=== PATIENT | female | born 1945 | race Caucasian/White ===

== ENCOUNTER → 2016-11-14 | Outpatient (CLI) | payer OTHER ==
[~2016-11-14] MED LIST: ACET325T96 PO; ACET650S10 PR; AMIT75TA2 PO; AMOX500C3 PO; AMOX875T PO; ASPI325T39 PO; BISA10SU38 PR; CALC-393 PO; CALC500C3 PO; CALCTAB5 PO; CHOL1000 PO; CHOL100010 PO; CLOTCRE33 TOP; CRFL PO; DEXT40GE PO; FERR325T PO; FSM70 PO; GLGKIT IM; IMT100 PO; LEVO750T23 PO; LIQUID PROTEIN PO; LORA-741 PO; MAGN400C3 PO; MAGN400T6 PO; MAGN400T7 PO; METH4PAK PO; METH500T3 PO; MIDO5TAB PO; MIRT45TA3 PO; MISCCAP80 PO; MOML PO; MULTTAB58 PO; NATA1INJ IV; NITR-5 PO; NRN800 PO; ONDA4TAB46 PO; POTA-74 PO; PRT/40 PO; SNTO30 TD; SODIENE PR; SULF800T23 PO; TPM25 PO; ULT/50 PO; ULT50 PO; VERA180C2 PO
[2016-11-14 08:28] LABS: MEAN CORPUSCULAR HEMOGLOBIN 29.4 pg (25-34); MEAN CORPUSCULAR HGB CONC 31.6 g/dl (32-36); MEAN PLATELET VOLUME 9.7 fL (7.4-10.4); PLATELET COUNT 563 K/uL (130-400); RED BLOOD COUNT 3.44 M/uL (4.2-5.4)
== END ==
LOC: C.LABCC 07:41
PROVIDERS: ATTEND Internal Medicine
DX: D50.0 Iron deficiency anemia secondary to blood loss (chronic) (principal)

== ENCOUNTER → 2016-12-16 | Outpatient (CLI) | payer OTHER ==
[2016-12-16 08:42] LABS: BASO % 0.2 %; BASO ABS # 0.02 K/uL (0-0.2); COMPLETE YES; HEMATOCRIT 36.5 % (37-47); IG% 0.3 %; LYMPH ABS # 1.74 K/uL (1.2-3.4); MEAN CELL VOLUME 93.6 fL (80-100); MEAN CORPUSCULAR HEMOGLOBIN 30.5 pg (25-34); MEAN CORPUSCULAR HGB CONC 32.6 g/dl (32-36); MEAN PLATELET VOLUME 10.8 fL (7.4-10.4); MONO % 6.8 %; NEUT % 71.7 %; PLATELET COUNT 238 K/uL (130-400); WHITE BLOOD COUNT 9.68 K/uL (4.8-10.8)
== END ==
LOC: C.LABCC 08:01
PROVIDERS: ATTEND Internal Medicine
DX: D64.9 Anemia, unspecified (principal); M81.0 Age-related osteoporosis without current pathological fracture

== ENCOUNTER → 2017-01-02 | Outpatient (CLI) | payer OTHER ==
[~2017-01-02] MED LIST changes: -ASPI325T39 PO
[2017-01-02 18:46] LABS: URINE APPEARANCE CLOUDY (CLEAR); URINE BILIRUBIN NEG (NEG); URINE COLOR DK YELLOW; URINE EPITHELIAL CELL AUTO 0-5 /lpf (0-5); URINE NITRITE NEG (NEG); URINE SPECIFIC GRAVITY 1.012 (1.000-1.030); UROBILINOGEN NEG (NEG)
[2017-01-02 18:48] LABS: MANUAL MICROSCOPIC REQUIRED? NO; REVIEW REQ? NO
== END ==
LOC: C.LABCC 18:03
PROVIDERS: ATTEND Internal Medicine
DX: R30.0 Dysuria (principal)

== ENCOUNTER → 2017-01-10 | Outpatient (CLI) | payer OTHER ==
[2017-01-13 20:21] LABS: JCV ANTIBODY POSITIVE; JCV INDEX 2.45
== END ==
LOC: C.LABCC 07:41
PROVIDERS: ATTEND Internal Medicine
DX: G35 Multiple sclerosis (principal)

== ENCOUNTER → 2017-01-31 | Outpatient (CLI) | payer OTHER ==
[2017-01-31 01:57] LABS: MANUAL MICROSCOPIC REQUIRED? NO; REVIEW REQ? YES; URINE APPEARANCE CLOUDY (CLEAR); URINE BILIRUBIN NEG (NEG); URINE COLOR DK YELLOW; URINE EPITHELIAL CELL AUTO 0-5 /lpf (0-5); URINE NITRITE POS (NEG); URINE PH 6.5 (4.5-7.5); URINE SPECIFIC GRAVITY 1.015 (1.000-1.030); UROBILINOGEN NEG (NEG)
== END ==
LOC: C.LABCC 12:50
PROVIDERS: ATTEND Internal Medicine
DX: R41.82 Altered mental status, unspecified (principal); R50.9 Fever, unspecified

== ENCOUNTER → 2017-02-01 | Outpatient (CLI) | payer OTHER ==
[2017-02-01 08:50] LABS: MEAN CELL VOLUME 92.1 fL (80-100); MEAN CORPUSCULAR HEMOGLOBIN 30.8 pg (25-34); MEAN CORPUSCULAR HGB CONC 33.4 g/dl (32-36); MEAN PLATELET VOLUME 11.5 fL (7.4-10.4); PLATELET COUNT 223 K/uL (130-400); RED BLOOD COUNT 4.45 M/uL (4.2-5.4); WHITE BLOOD COUNT 10.12 K/uL (4.8-10.8)
[2017-02-01 08:57] LABS: ALT/SGPT 17 U/L (12-78); AST/SGOT 11 U/L (15-37); BLOOD UREA NITROGEN 15 mg/dl (7-18); BUN/CREATININE RATIO 27.4 (10-20); CARBON DIOXIDE 33 mmol/L (21-32); CHLORIDE 102 mmol/L (98-107); CHOLESTEROL 129 mg/dl (0-200); CREATININE 0.53 mg/dl (0.60-1.20); GLUCOSE 79 mg/dl (70-99); MAGNESIUM 1.9 mg/dl (1.8-2.4); POTASSIUM 4.1 mmol/L (3.5-5.1); SODIUM 139 mmol/L (136-145); TRIGLYCERIDES 88 mg/dl (0-150); VERY LOW DENSITY LIPOPROT CALC 18 mg/dl
[2017-02-01 09:01] LABS: ALB/GLOB RATIO 0.7 (0.9-2); ALKALINE PHOSPHATASE 142 U/L (45-117); CHOLESTEROL/HDL RATIO 1.6; HDL CHOLESTEROL 80 mg/dl; LDL CHOLESTEROL CALCULATED 31 mg/dl
== END ==
LOC: C.LABCC 08:09
PROVIDERS: ATTEND Internal Medicine
DX: I10 Essential (primary) hypertension (principal); F41.9 Anxiety disorder, unspecified; G35 Multiple sclerosis; K21.9 Gastro-esophageal reflux disease without esophagitis

== ENCOUNTER 2017-03-05 18:45 | Emergency (ER) | payer OTHER ==
[~2017-03-05] VITALS: Ht 160 cm; Wt 43.0 kg
[~2017-03-05 18:45] MED LIST changes: -ACET325T96 PO; -ACET650S10 PR; -AMIT75TA2 PO; -AMOX500C3 PO; -AMOX875T PO; -BISA10SU38 PR; -CALC-393 PO; -CALC500C3 PO; -CHOL1000 PO; -CLOTCRE33 TOP; -CRFL PO; -DEXT40GE PO; -FERR325T PO; -FSM70 PO; -GLGKIT IM; -IMT100 PO; -LEVO750T23 PO; -LIQUID PROTEIN PO; -LORA-741 PO; -MAGN400C3 PO; -MAGN400T6 PO; -MAGN400T7 PO; -METH4PAK PO; -METH500T3 PO; -MIDO5TAB PO; -MIRT45TA3 PO; -MISCCAP80 PO; -MOML PO; -MULTTAB58 PO; -NATA1INJ IV; -NITR-5 PO; -NRN800 PO; -ONDA4TAB46 PO; -POTA-74 PO; -PRT/40 PO; -SNTO30 TD; -SODIENE PR; -SULF800T23 PO; -TPM25 PO; -ULT/50 PO; -VERA180C2 PO
[2017-03-05 18:47] VITALS: TEMP 36.9; Ht 160 cm; Wt 43.0 kg
[2017-03-05] MEDS ORDERED: PROCHLORPERAZINE 5 MG/ML 2 ML VIAL IM STA (19:01)
[2017-03-05] MEDS ORDERED: KETOROLAC TROMETHAMINE 60 MG/2 ML VIAL IM STA (19:01)
--- NOTE | 2017-03-05 19:11 | EMERGENCY ROOM VISIT NOTE ---
ED Visit Note First contact with patient: 18:50 CHIEF COMPLAINT: Migraine headache HISTORY OF PRESENT ILLNESS: This 70-year-old female patient presented to the emergency department this evening with a gradual onset of a severe generalized headache that started this morning. The patient states the migraine is similar to their typical migraines. There has been associated photophobia, phonophobia, nausea without vomiting. The patient denies fever or chills recently, and there is no weakness or numbness of the extremities. There is no difficulty with speech or vision. No trauma to the head and no neck pain. The pain is severe, constant, and it is slowly increasing in severity. The patient rates the pain as constant and 9/10. The patient has taken Imitrex without relief. This is not the worst headache of the life and is similar to previous migraines. Previous imaging studies of the brain have been normal. Patient was recently admitted to [facility] for hip fractures. She was recently discharged on . REVIEW OF SYSTEMS: A review of systems was performed with positives and pertinent negatives listed in the history of present illness. All other systems were reviewed and are negative. ALLERGIES: Morphine MEDICATIONS: Reviewed and discussed with the patient. PMH: No pertinent past medical history. SOCIAL HISTORY: Patient is a 70-year-old female who lives at home with family. PHYSICAL EXAM: VITAL SIGNS - Vital signs and nursing notes were reviewed. GENERAL - 70-year-old female appearing her stated age who is in no acute distress. Communicates well with provider and answers questions appropriately. HEAD - Normocephalic, Atraumatic. No Alonzo's Sign or Raccoon's Eyes. No depressed skull fractures palpable. EYES - PERRL with EOMI bilaterally. Sclera anicteric. Palpebral conjunctiva pink and moist with no injection noted. EARS - No deformities of external structures noted on gross examination bilaterally. No pain elicited with palpation of the tragus bilaterally. External auditory canals without discharge or otorrhea. Tympanic membranes pearly guerrero without retraction or bulging. No fluid or purulent material visualized behind the TM. Handle of malleus, umbo, cone of light, pars tensa/ flaccid all easily visualized. NOSE - Midline and without cyanosis. No epistaxis or purulent drainage noted. Septum midline without deviation or septal hematoma noted. MOUTH/OROPHARYNX - Without perioral cyanosis. Buccal mucosa pink and moist and without leukoplakia. Tongue midline with equal elevation of palate bilaterally. No tonsillar hypertrophy, erythema, or exudates noted. NECK - Neck with FROM. Supple to palpation. No lymphadenopathy noted. No nuchal rigidity. LUNGS - Chest wall symmetric without accessory muscle use, intercostals retractions, or central cyanosis. Normal vesicular breath sounds CTA B/L. No wheezes, rales, or rhonchi appreciated. CARDIAC - RRR with S1/S2. No murmur, rubs, or gallops appreciated. ABDOMEN - Abdominal contour flat without pulsations or visible masses. BS normoactive all four quadrants. No tenderness, palpable masses, hepatosplenomegaly, or ascites noted. EXTREMITIES - No pretibial edema present. +3/5 radial and dorsalis pedis pulses palpated throughout. FROM with no tremors, fasciculations, or clonus noted on PROM throughout. +5/5 strength noted in UE/LE bilaterally. NEUROLOGIC - Cranial nerves II through XII grossly intact. Sensory intact to light touch throughout. Patellar reflexes +2/4. Patient able to perform rapid alternating movements appropriately. Negative Drift. PSYCH - A&Ox3 and cooperates fully with examiner. Pt is very pleasant and interacts well with examiner. EMERGENCY DEPARTMENT COURSE: I examined the patient. The patient is on a narcotic injection per month treatment plan for their migraines. The patient was given 1 mg Dilaudid, 10 mg Compazine, and 60 mg Toradol intramuscularly per their usual protocol. The differential diagnosis includes acute intracranial bleed, meningitis, encephalitis, mass or mass effect, sinusitis, infection, tumor, headache, temporal arteritis and carbon monoxide exposure, and migraine. The patient was discharged home in stable condition with her driving. DIAGNOSIS: Migraine headache DISCHARGE INSTRUCTIONS & TREATMENT: You have been treated in the Emergency Department for a Headache. You have received pain medicine in the emergency department which impairs your ability to operate a vehicle. It is illegal for you to drive after receiving these medicines. For pain control, you can use the following [id number] medicines (if >12 yo): - Regular strength (325mg/tab) Tylenol (acetaminophen) 2 tabs every 4-6 hours as needed. Do not exceed 12 tablets in a 24 hour period. Avoid taking more than 4 grams (4000 mg) of Tylenol per day. This includes any other sources of acetaminophen you may take on a regular basis. - Regular strength (200 mg/tab) Advil (ibuprofen) 1-2 tabs every 4-6 hours as needed. Do not exceed a dose of 3200 mg per day. You should relax in a quiet, dark place for the rest of the day. Avoid any possible triggers including: cigarette smoke, caffeine, nicotine, chocolate, wine, beer, loud noises or music, or bright lights. You should schedule a follow-up appointment in 2-3 days with your Primary Care Provider or established Neurologist for further evaluation and treatment of your Headache. Return to the Emergency Department if your current symptoms worsen despite treatment course outlined above, or if you develop any of the following symptoms : intractable pain despite aforementioned treatment course, visual disturbances , loss of vision, unilateral weakness or facial drooping, slurring of speech, loss of coordination, or loss of consciousness. Problem List Medical Problems: (1) Benign hypertension Status: Chronic (2) Chronic peptic ulcer Status: Chronic (3) Hysterectomy Status: Resolved (4) Migraine Status: Chronic (5) Multiple sclerosis Status: Chronic (6) Multiple sclerosis Status: Chronic (7) Sepsis Status: Resolved (8) STAPHYLOCOCCAL SEPTICEMIA, NEC Status: Resolved Surgical Problems: (1) S/P partial gastrectomy Status: Chronic Current/Historical Medications Scheduled Alendronate Sodium (Alendronate Sodium), 70 MG PO WK Amitriptyline Hcl (Elavil), 75 MG PO HS Calcium Carbonate (Calcium), 600 MG PO TID Cholecalciferol (Vitamin D3), 1 TAB PO TID Ferrous Sulfate (Ferrous Sulfate), 325 MG PO BID Gabapentin (Gabapentin), 800 MG PO TID Magnesium Oxide (Mag-Ox), 400 MG PO QAM Midodrine Hcl (Midodrine Hcl), 5 MG PO TID Mirtazapine (Mirtazapine), 45 MG PO HS Natalizumab (Tysabri), 1 DOSE IV MONTHLY Pantoprazole (Pantoprazole Sodium), 40 MG PO BID Verapamil Hcl (Verapamil Hcl Er), 180 MG PO QPM Scheduled PRN Acetaminophen Tab (Tylenol), 650 MG PO Q4H PRN for Pain or Fever Sumatriptan Succinate (Imitrex), 100 MG PO UD PRN for Migraine Tramadol HCl (Tramadol HCl), 50 MG PO BID PRN for Pain Allergies Coded Allergies: Morphine (Verified Adverse Reaction, Intermediate, " MAKES ME MEAN" - CONFUSION, 10/27/16) Vital Signs Date Time Temp Pulse Resp B/P Pulse Ox O2 Delivery O2 Flow Rate FiO2 03/05/17 19:40 104 18 151/84 95 03/05/17 18:47 36.9 116 20 142/63 95 Room Air Medications Administered Medications (Trade) Dose Ordered Sig/Melvin Route Start Time Stop Time Status Last Admin Dose Admin Hydromorphone HCl (Dilaudid Inj) 1 mg NOW ONCE IM 03/05/17 19:15 03/05/17 19:16 DC 03/05/17 19:10 1 MG Ketorolac Tromethamine (Toradol Inj) 60 mg NOW STAT IM 03/05/17 19:01 03/05/17 19:03 DC 03/05/17 19:10 60 MG Prochlorperazine Edisylate (Compazine Inj) 10 mg NOW STAT IM 03/05/17 19:01 03/05/17 19:03 DC 03/05/17 19:09 10 MG Departure Information Impression Primary Impression: Migraine Dispostion Home / Self-Care Condition GOOD Referrals No Doctor, Assigned (PCP) Patient Instructions My [facility] Additional Instructions You have been treated in the Emergency Department for a Headache. You have received pain medicine in the emergency department which impairs your ability to operate a vehicle. It is illegal for you to drive after receiving these medicines. For pain control, you can use the following [id number] medicines (if >12 yo): - Regular strength (325mg/tab) Tylenol (acetaminophen) 2 tabs every 4-6 hours as needed. Do not exceed 12 tablets in a 24 hour period. Avoid taking more than 4 grams (4000 mg) of Tylenol per day. This includes any other sources of acetaminophen you may take on a regular basis. - Regular strength (200 mg/tab) Advil (ibuprofen) 1-2 tabs every 4-6 hours as needed. Do not exceed a dose of 3200 mg per day. You should relax in a quiet, dark place for the rest of the day. Avoid any possible triggers including: cigarette smoke, caffeine, nicotine, chocolate, wine, beer, loud noises or music, or bright lights. You should schedule a follow-up appointment in 2-3 days with your Primary Care Provider or established Neurologist for further evaluation and treatment of your Headache. Return to the Emergency Department if your current symptoms worsen despite treatment course outlined above, or if you develop any of the following symptoms : intractable pain despite aforementioned treatment course, visual disturbances , loss of vision, unilateral weakness or facial drooping, slurring of speech, loss of coordination, or loss of consciousness. Problem Qualifiers Primary Impression: Migraine Migraine type: unspecified Status migrainosus presence: without status migrainosus Intractability: not intractable Qualified Codes: G43.909 - Migraine, unspecified, not intractable, without status migrainosus
[2017-03-05] MEDS ORDERED: HYDROmorphone INJ 1 MG/ML SYR IM ONE (19:15)
--- NOTE | 2017-03-05 19:17 | EMERGENCY ROOM VISIT NOTE ---
ED Visit Note First contact with patient: 18:50 Patient was seen by our PA/METAL COATER. I was involved in the patient's care and did evaluate the patient myself. I was involved in the care throughout the ER stay. The patient presents with a headache that seems to be migrainous. She has a history of the same. She is being medicated and discharged home.
[2017-03-05 19:40] VITALS: BP 151/84; PULSE 104; O2SAT 95
[2017-04-27] MEDS ORDERED: METH4PAK PO (10:34)
[2017-05-01] MEDS ORDERED: AMOX500C3 PO (17:29)
[2017-05-12] MEDS ORDERED: LEVO750T23 PO (09:46)
[2017-06-02] MEDS ORDERED: MAGN400T6 PO (10:29)
[2017-07-22] MEDS ORDERED: METH500T3 PO (09:58)
[2017-07-22] MEDS ORDERED: PANT40TA2 PO (16:10)
[2017-07-22] MEDS ORDERED: NATA1INJ IV (16:15)
[2017-07-22] MEDS ORDERED: ULT/50 PO (16:39)
[2017-07-22] MEDS ORDERED: NRN800 PO (17:00)
[2017-07-22] MEDS ORDERED: AMIT75TA2 PO (17:00)
[2017-07-22] MEDS ORDERED: FERR1TAB62 PO (18:34)
[2017-08-25] MEDS ORDERED: PRED10TA PO (16:06)
[2017-08-25] MEDS ORDERED: LORA-741 PO (16:06)
[2017-08-25] MEDS ORDERED: ULT/50 PO (16:06)
== END 2017-03-05 19:41 | disposition home or self-care (01) ==
LOC: C.EDB 18:46 → C.EDD 19:41
DX: G43.909 Migraine, unspecified, not intractable, without status migrainosus (principal); I10 Essential (primary) hypertension; K27.9 Peptic ulcer, site unspecified, unspecified as acute or chronic, without hemorrhage or perforation; G35 Multiple sclerosis; Z79.899 Other long term (current) drug therapy; Z86.19 Personal history of other infectious and parasitic diseases

== ENCOUNTER 2017-03-22 20:53 | Emergency (ER) | payer OTHER ==
[~2017-03-22] VITALS: Ht 160 cm; Wt 43.0 kg
[~2017-03-22 20:53] MED LIST changes: -CALCTAB5 PO; -CHOL100010 PO
[2017-03-22 20:55] VITALS: Ht 160 cm; Wt 43.0 kg
[2017-03-22] MEDS ORDERED: KETOROLAC TROMETHAMINE 60 MG/2 ML VIAL IM STA (21:14)
[2017-03-22] MEDS ORDERED: HYDROmorphone INJ 1 MG/ML SYR IM STA (21:14)
[2017-03-22] MEDS ORDERED: PROCHLORPERAZINE 5 MG/ML 2 ML VIAL IM STA (21:14)
--- NOTE | 2017-03-22 21:19 | EMERGENCY ROOM VISIT NOTE ---
History First contact with patient: 21:08 Chief Complaint: HEADACHE Stated Complaint: BAD MIGRAINE History of Present Illness The patient is a 71 year old female, well-known to the emergency department who presents to the Emergency Room with complaints of a migraine headache. Her headache started this morning around 10 AM. She reports nausea without vomiting , photophobia and phonophobia. This is typical for her migraines, and not worse headache of her life. She is under the management of Dr. Gerardo. She usually takes Ultram, but this did not provide any relief. She rates her discomfort a 9 out of 10. She denies any recent head injury, fevers, chills, sinus congestion, neck pain, chest pain, shortness of breath or risk of carbon monoxide exposure. Review of Systems 10 system review was performed and was negative except for pertinent positives and negatives as indicated in history of present illness Past Medical/Surgical History Medical Problems: (1) Benign hypertension (2) Chronic peptic ulcer (3) Hysterectomy (4) Intertrochanteric fracture of right hip (5) Intertrochanteric fracture of right hip (6) Migraine (7) Multiple sclerosis (8) Multiple sclerosis (9) Multiple sclerosis exacerbation (10) non cardiac chest pain related to gi (11) Sepsis (12) STAPHYLOCOCCAL SEPTICEMIA, NEC (13) UTI (urinary tract infection) Surgical Problems: (1) S/P partial gastrectomy Family History Diabetes mellitus FH: cholecystectomy FHx: heart disease Social History Smoking Status: Former Smoker Alcohol Use: none Drug Use: none Marital Status: Housing Status: lives with family Occupation Status: retired Current/Historical Medications Scheduled Alendronate Sodium (Alendronate Sodium), 70 MG PO WK Amitriptyline Hcl (Elavil), 75 MG PO HS Calcium Carbonate (Calcium), 600 MG PO TID Cholecalciferol (Vitamin D3), 1 TAB PO TID Ferrous Sulfate (Ferrous Sulfate), 325 MG PO BID Gabapentin (Gabapentin), 800 MG PO TID Magnesium Oxide (Mag-Ox), 400 MG PO QAM Midodrine Hcl (Midodrine Hcl), 5 MG PO TID Mirtazapine (Mirtazapine), 45 MG PO HS Natalizumab (Tysabri), 1 DOSE IV MONTHLY Pantoprazole (Pantoprazole Sodium), 40 MG PO BID Verapamil Hcl (Verapamil Hcl Er), 180 MG PO QPM Scheduled PRN Acetaminophen Tab (Tylenol), 650 MG PO Q4H PRN for Pain or Fever Sumatriptan Succinate (Imitrex), 100 MG PO UD PRN for Migraine Tramadol HCl (Tramadol HCl), 50 MG PO BID PRN for Pain Allergies Coded Allergies: Morphine (Verified Adverse Reaction, Intermediate, " MAKES ME MEAN" - CONFUSION, 03/22/17) Physical Exam Vital Signs Date Time Temp Pulse Resp B/P Pulse Ox O2 Delivery O2 Flow Rate FiO2 03/22/17 20:55 36.6 98 16 147/86 93 Room Air Physical Exam CONSTITUTIONAL: Healthy and well nourished. Alert and oriented X 3 with positive affect. She is resting in a darkened room. And appears in moderate discomfort. HEENT: Normocephalic, atraumatic. Pupils equal, round and reactive. Patient is photophobic, precluding funduscopic exam. NECK: Full active range of motion without discomfort. No nuchal rigidity, JVD or carotid bruits. RESPIRATORY: Clear to auscultation bilaterally with no wheezing, crackles, rhonchi or stridor. CARDIOVASCULAR: Regular rate and rhythm with no murmurs, rubs or gallops. INTEGUMENTARY: No rash or other significant dermatologic conditions noted. NEUROLOGIC: Cranial nerves II-XII grossly intact. No focal neurologic deficits noted. Normal finger to nose test. Negative pronator drift. Medical Decision & Procedures ED Course Patient history and physical exam were performed. Nurse's notes were reviewed. Vital signs were reviewed and were normal. The patient is currently on a treatment plan. This is her first visit of the month. The patient was administered Dilaudid 2 mg, Compazine 10 mg and Toradol 30 mg IM. The patient requested immediate discharge. She was encouraged to rest and remain well- hydrated. Return for rebound migraine, otherwise follow-up with Dr. Gerardo for further management. The patient was happy with plan of care, voiced understanding of all discharge instructions, and rated her pain a 6 out of 10 at the time of discharge. Medical Decision Patient presents with complaint of a migraine headache that is typical for her migraines, and multiple worse headache of her life. Based on history and physical exam findings, I do not suspect CVA/TIA, abscess, intracranial bleed, meningitis or carbon monoxide poisoning. Impression Primary Impression: Migraine Departure Information Dispostion Home / Self-Care Referrals George Montoya M.D. (PCP) Forms HOME CARE DOCUMENTATION FORM, IMPORTANT VISIT INFORMATION Patient Instructions My [facility] Additional Instructions Rest and remain well-hydrated. Follow-up with Dr. Gerardo as needed for further migraine management. Return to the emergency department for any progressively worsening symptoms.
[2017-03-22 21:51] VITALS: BP 147/86; PULSE 98; TEMP 36.6; O2SAT 93
[2017-04-27] MEDS ORDERED: METH4PAK PO (10:34)
[2017-05-01] MEDS ORDERED: AMOX500C3 PO (17:29)
[2017-05-12] MEDS ORDERED: LEVO750T23 PO (09:46)
[2017-06-02] MEDS ORDERED: MAGN400T6 PO (10:29)
[2017-07-22] MEDS ORDERED: METH500T3 PO (09:58)
[2017-07-22] MEDS ORDERED: PANT40TA2 PO (16:10)
[2017-07-22] MEDS ORDERED: NATA1INJ IV (16:15)
[2017-07-22] MEDS ORDERED: ULT/50 PO (16:39)
[2017-07-22] MEDS ORDERED: NRN800 PO (17:00)
[2017-07-22] MEDS ORDERED: AMIT75TA2 PO (17:00)
[2017-07-22] MEDS ORDERED: FERR1TAB62 PO (18:34)
[2017-08-25] MEDS ORDERED: PRED10TA PO (16:06)
[2017-08-25] MEDS ORDERED: LORA-741 PO (16:06)
[2017-08-25] MEDS ORDERED: ULT/50 PO (16:06)
== END 2017-03-22 21:52 | disposition home or self-care (01) ==
LOC: C.EDB 20:54
DX: G43.909 Migraine, unspecified, not intractable, without status migrainosus (principal); I10 Essential (primary) hypertension; G35 Multiple sclerosis; Z87.11 Personal history of peptic ulcer disease; Z87.19 Personal history of other diseases of the digestive system; Z87.440 Personal history of urinary (tract) infections; Z87.81 Personal history of (healed) traumatic fracture; Z90.710 Acquired absence of both cervix and uterus; Z90.3 Acquired absence of stomach [part of]; Z87.891 Personal history of nicotine dependence; Z79.899 Other long term (current) drug therapy; Z88.5 Allergy status to narcotic agent; Z83.3 Family history of diabetes mellitus; Z82.49 Family history of ischemic heart disease and other diseases of the circulatory system; Z84.1 Family history of disorders of kidney and ureter

== ENCOUNTER 2017-04-06 16:51 | Emergency (ER) | payer OTHER ==
[~2017-04-06] VITALS: Ht 160 cm; Wt 43.5 kg
[2017-04-06 16:58] VITALS: BP 110/68; PULSE 126; TEMP 36.8; O2SAT 95; Ht 160 cm; Wt 43.5 kg
[2017-04-06] MEDS ORDERED: HYDROmorphone INJ 2 MG/ML SYR/VIAL IM STA (17:17)
[2017-04-06] MEDS ORDERED: KETOROLAC TROMETHAMINE 60 MG/2 ML VIAL IM STA (17:17)
[2017-04-06] MEDS ORDERED: PROCHLORPERAZINE 5 MG/ML 2 ML VIAL IM STA (17:17)
--- NOTE | 2017-04-06 17:20 | EMERGENCY ROOM VISIT NOTE ---
ED Visit Note First contact with patient: 17:00 Staff note: I have reviewed the Patients chart and have discussed this case with my PA. I generally agree with the ED note and findings.
--- NOTE | 2017-04-06 17:29 | EMERGENCY ROOM VISIT NOTE ---
ED Visit Note First contact with patient: 17:00 CHIEF COMPLAINT: Migraine headache HISTORY OF PRESENT ILLNESS: This 71-year-old female patient presented to the emergency department ambulatory with a gradual onset of a severe generalized headache that started yesterday. The patient states the migraine is similar to their typical migraines. There has been associated photophobia, phonophobia, nausea, but no vomiting. The patient denies fever or chills recently, and there is no weakness or numbness of the extremities. There is no difficulty with speech or vision. No trauma to the head and no neck pain. The pain is severe, constant, and it is slowly increasing in severity. The patient rates the pain as throbbing and 8/10. The patient has taken Imitrex and Excedrin without relief. This is not the worst headache of the life and is similar to previous migraines. Previous imaging studies of the brain have been normal. The patient follows with Dr. Gerardo locally for her migraine headaches. REVIEW OF SYSTEMS: A review of systems was performed with positives and pertinent negatives listed in the history of present illness. All other systems were reviewed and are negative. ALLERGIES: Morphine MEDICATIONS: See med list PMH: Migraine headaches SOCIAL HISTORY: The patient lives locally with her family. She is a former smoker. PHYSICAL EXAM: Vital Signs: Reviewed Nurse's notes, vital signs stable. GENERAL : This is a 71-year-old female, who appears in pain, but non toxic in appearance and in no acute distress. MENTAL STATUS: Alert, oriented, and coherent. HEENT: Normocephalic. PERRLA. EOMI. Nares patent without nuchal rigidity. Tympanic membranes pearly guerrero without erythema or effusion bilaterally. Mucous membranes moist. NECK: Supple, no nuchal rigidity, nontender, no lymphadenopathy. HEART: Regular rhythm and normal rate without murmurs, ectopy, gallops, or rubs. LUNGS: Clear to auscultation bilaterally without wheezes, rales or rhonchi. No dullness to percussion. No accessory muscle use. No retractions. SKIN: Normal. NEUROLOGICAL: Pupils are round, equal and react to light. The optic fundi are normal and the discs are flat. The patient moves all extremities well and the gait is normal. EMERGENCY DEPARTMENT COURSE: I examined the patient. The patient is on a 2 narcotic injection per month treatment plan for their migraines. The patient was given 2 mg Dilaudid IM, 10 mg Compazine IM and 60 mg Toradol IM per their usual protocol. The differential diagnosis includes acute intracranial bleed, meningitis, encephalitis, mass or mass effect, sinusitis, infection, tumor, headache, temporal arteritis and carbon monoxide exposure, and migraine. The patient was discharged home in stable condition with her driving. The patient was independently evaluated by Dr. Leigh, ED attending physician, who agreed with my assessment and treatment plan. DIAGNOSIS: Migraine headache Problem List Medical Problems: (1) Benign hypertension Status: Chronic (2) Chronic peptic ulcer Status: Chronic (3) Hysterectomy Status: Resolved (4) Migraine Status: Chronic (5) Multiple sclerosis Status: Chronic (6) Multiple sclerosis Status: Chronic (7) Sepsis Status: Resolved (8) STAPHYLOCOCCAL SEPTICEMIA, NEC Status: Resolved Surgical Problems: (1) S/P partial gastrectomy Status: Chronic Current/Historical Medications Scheduled Alendronate Sodium (Alendronate Sodium), 70 MG PO WK Amitriptyline Hcl (Elavil), 75 MG PO HS Calcium Carbonate (Calcium), 600 MG PO TID Cholecalciferol (Vitamin D3), 1 TAB PO TID Ferrous Sulfate (Ferrous Sulfate), 325 MG PO BID Gabapentin (Gabapentin), 800 MG PO TID Magnesium Oxide (Mag-Ox), 400 MG PO QAM Midodrine Hcl (Midodrine Hcl), 5 MG PO TID Mirtazapine (Mirtazapine), 45 MG PO HS Natalizumab (Tysabri), 1 DOSE IV MONTHLY Pantoprazole (Pantoprazole Sodium), 40 MG PO BID Verapamil Hcl (Verapamil Hcl Er), 180 MG PO QPM Scheduled PRN Acetaminophen Tab (Tylenol), 650 MG PO Q4H PRN for Pain or Fever Sumatriptan Succinate (Imitrex), 100 MG PO UD PRN for Migraine Tramadol HCl (Tramadol HCl), 50 MG PO BID PRN for Pain Allergies Coded Allergies: Morphine (Verified Adverse Reaction, Intermediate, " MAKES ME MEAN" - CONFUSION, 04/06/17) Vital Signs Date Time Temp Pulse Resp B/P Pulse Ox O2 Delivery O2 Flow Rate FiO2 04/06/17 16:58 36.8 126 18 110/68 95 Room Air Departure Information Impression Primary Impression: Migraine Dispostion Home / Self-Care Condition GOOD Referrals George Montoya M.D. (PCP) Patient Instructions My [facility] Additional Instructions You have been treated in the Emergency Department for a Headache. You have received pain medicine in the emergency department which impairs your ability to operate a vehicle. It is illegal for you to drive after receiving these medicines. You should schedule a follow-up appointment in 2-3 days with your Primary Care Provider or established Neurologist for further evaluation and treatment of your Headache. Return to the Emergency Department if your current symptoms worsen despite treatment course outlined above, or if you develop any of the following symptoms : intractable pain despite aforementioned treatment course, visual disturbances , loss of vision, unilateral weakness or facial drooping, slurring of speech, loss of coordination, or loss of consciousness. Problem Qualifiers Primary Impression: Migraine Migraine type: unspecified Status migrainosus presence: without status migrainosus Intractability: not intractable Qualified Codes: G43.909 - Migraine, unspecified, not intractable, without status migrainosus
[2017-04-27] MEDS ORDERED: METH4PAK PO (10:34)
[2017-05-01] MEDS ORDERED: AMOX500C3 PO (17:29)
[2017-05-12] MEDS ORDERED: LEVO750T23 PO (09:46)
[2017-06-02] MEDS ORDERED: MAGN400T6 PO (10:29)
[2017-07-22] MEDS ORDERED: METH500T3 PO (09:58)
[2017-07-22] MEDS ORDERED: PANT40TA2 PO (16:10)
[2017-07-22] MEDS ORDERED: NATA1INJ IV (16:15)
[2017-07-22] MEDS ORDERED: ULT/50 PO (16:39)
[2017-07-22] MEDS ORDERED: AMIT75TA2 PO (17:00)
[2017-07-22] MEDS ORDERED: NRN800 PO (17:00)
[2017-07-22] MEDS ORDERED: FERR1TAB62 PO (18:34)
[2017-08-25] MEDS ORDERED: ULT/50 PO (16:06)
[2017-08-25] MEDS ORDERED: LORA-741 PO (16:06)
[2017-08-25] MEDS ORDERED: PRED10TA PO (16:06)
== END 2017-04-06 17:40 | disposition home or self-care (01) ==
LOC: C.EDB 16:52 → C.EDD 17:40
DX: G43.909 Migraine, unspecified, not intractable, without status migrainosus (principal); Z87.891 Personal history of nicotine dependence; I10 Essential (primary) hypertension; G35 Multiple sclerosis

== ENCOUNTER → 2017-04-11 | Outpatient (CLI) | payer OTHER ==
[~2017-04-11] MED LIST changes: +ACET325T96 PO; +ACET650S10 PR; +AMIT75TA2 PO; +AMOX500C3 PO; +AMOX875T PO; +BISA10SU38 PR; +CALC-393 PO; +CALC500C3 PO; +CHOL1000 PO; +CLOTCRE33 TOP; +CRFL PO; +DEXT40GE PO; +FERR1TAB62 PO; +FSM70 PO; +GLGKIT IM; +IMT100 PO; +LEVO750T23 PO; +LIQUID PROTEIN PO; +LORA-741 PO; +MAGN400C3 PO; +MAGN400T6 PO; +MAGN400T7 PO; +METH4PAK PO; +METH500T3 PO; +MIDO5TAB PO; +MIRT45TA3 PO; +MISCCAP80 PO; +MOML PO; +MULTTAB58 PO; +NATA1INJ IV; +NITR-5 PO; +NRN800 PO; +ONDA4TAB46 PO; +PANT40TA2 PO; +POTA-74 PO; +PRED10TA PO; +SNTO30 TD; +SODIENE PR; +SULF800T23 PO; +TPM25 PO; +ULT/50 PO; +VERA180C2 PO
[2017-04-11 12:27] LABS: BASO % 0.5 %; BASO ABS # 0.05 K/uL (0-0.2); COMPLETE YES; EOS % 3.8 %; HEMATOCRIT 41.4 % (37-47); IG% 0.2 %; LYMPH % 41.7 %; LYMPH ABS # 4.53 K/uL (1.2-3.4); MEAN CELL VOLUME 93.5 fL (80-100); MEAN CORPUSCULAR HEMOGLOBIN 31.4 pg (25-34); MEAN CORPUSCULAR HGB CONC 33.6 g/dl (32-36); MEAN PLATELET VOLUME 10.1 fL (7.4-10.4); MONO % 6.6 %; NEUT % 47.2 %; PLATELET COUNT 273 K/uL (130-400); RED BLOOD COUNT 4.43 M/uL (4.2-5.4); WHITE BLOOD COUNT 10.87 K/uL (4.8-10.8)
[2017-04-11 12:36] LABS: ALT/SGPT 26 U/L (12-78); AST/SGOT 29 U/L (15-37); BLOOD UREA NITROGEN 16 mg/dl (7-18); BUN/CREATININE RATIO 32.4 (10-20); CALCIUM 8.8 mg/dl (8.5-10.1); CARBON DIOXIDE 33 mmol/L (21-32); CHLORIDE 106 mmol/L (98-107); CREATININE 0.48 mg/dl (0.60-1.20); GLUCOSE 76 mg/dl (70-99); POTASSIUM 3.9 mmol/L (3.5-5.1); SODIUM 142 mmol/L (136-145)
[2017-04-11 12:39] LABS: ALKALINE PHOSPHATASE 111 U/L (45-117)
== END | disposition home or self-care (01) ==
LOC: C.LABBFT 10:59
PROVIDERS: ATTEND Psychiatry & Neurology Neurology
DX: E53.8 Deficiency of other specified B group vitamins (principal); G35 Multiple sclerosis; E55.9 Vitamin D deficiency, unspecified

== ENCOUNTER 2017-04-21 16:00 | Emergency (ER) | payer OTHER ==
[~2017-04-21] VITALS: Ht 160 cm; Wt 44.0 kg
[~2017-04-21 16:00] MED LIST changes: -ACET325T96 PO; -ACET650S10 PR; -AMIT75TA2 PO; -AMOX500C3 PO; -AMOX875T PO; -BISA10SU38 PR; -CALC-393 PO; -CALC500C3 PO; -CHOL1000 PO; -CLOTCRE33 TOP; -CRFL PO; -DEXT40GE PO; -FERR1TAB62 PO; -FSM70 PO; -GLGKIT IM; -IMT100 PO; -LEVO750T23 PO; -LIQUID PROTEIN PO; -LORA-741 PO; -MAGN400C3 PO; -MAGN400T6 PO; -MAGN400T7 PO; -METH4PAK PO; -METH500T3 PO; -MIDO5TAB PO; -MIRT45TA3 PO; -MISCCAP80 PO; -MOML PO; -MULTTAB58 PO; -NATA1INJ IV; -NITR-5 PO; -NRN800 PO; -ONDA4TAB46 PO; -PANT40TA2 PO; -POTA-74 PO; -PRED10TA PO; -SNTO30 TD; -SODIENE PR; -SULF800T23 PO; -TPM25 PO; -ULT/50 PO; -VERA180C2 PO
[2017-04-21 16:03] VITALS: TEMP 36.6; Ht 160 cm; Wt 44.0 kg
[2017-04-21] MEDS ORDERED: PROCHLORPERAZINE 5 MG/ML 2 ML VIAL IM STA (16:26)
[2017-04-21] MEDS ORDERED: KETOROLAC TROMETHAMINE 60 MG/2 ML VIAL IM STA (16:26)
[2017-04-21] MEDS ORDERED: HYDROmorphone INJ 2 MG/ML SYR/VIAL IM STA (16:26)
--- NOTE | 2017-04-21 16:27 | EMERGENCY ROOM VISIT NOTE ---
History Report prepared by Fidencio: Manfred Farley Under the Supervision of: Dr. Art Astorga D.O. First contact with patient: 16:20 Chief Complaint: HEADACHE Stated Complaint: HEADACHE History of Present Illness The patient is a 71 year old female who presents to the Emergency Room with complaints of a constant headache that began this morning at 1000, 6.5 hours prior to arrival. The patient states that she has a history of migraine headaches and that this headache is similar to those she has had in the past. She denies any atypical symptoms such as fevers, weakness, or tingling. She does follow with her primary care physician for migraines. 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 A total of 10 systems reviewed and were otherwise negative. Past Medical & Surgical Medical Problems: (1) Benign hypertension (2) Chronic peptic ulcer (3) Hysterectomy (4) Intertrochanteric fracture of right hip (5) Intertrochanteric fracture of right hip (6) Migraine (7) Multiple sclerosis (8) Multiple sclerosis (9) Multiple sclerosis exacerbation (10) non cardiac chest pain related to gi (11) Sepsis (12) STAPHYLOCOCCAL SEPTICEMIA, NEC (13) UTI (urinary tract infection) Surgical Problems: (1) S/P partial gastrectomy Family History Diabetes mellitus FH: cholecystectomy FHx: heart disease Social History Smoking Status: Never Smoker Alcohol Use: none Drug Use: none Marital Status: Housing Status: lives with family Occupation Status: retired Current/Historical Medications Scheduled Alendronate Sodium (Alendronate Sodium), 70 MG PO WK Amitriptyline Hcl (Elavil), 75 MG PO HS Calcium Carbonate (Calcium), 600 MG PO TID Cholecalciferol (Vitamin D3), 1,000 INTER.UNIT PO TID Ferrous Sulfate (Ferrous Sulfate), 325 MG PO BID Gabapentin (Gabapentin), 800 MG PO TID Magnesium Oxide (Mag-Ox), 400 MG PO QAM Midodrine Hcl (Midodrine Hcl), 5 MG PO TID Mirtazapine (Mirtazapine), 45 MG PO HS Natalizumab (Tysabri), 1 DOSE IV MONTHLY Pantoprazole (Pantoprazole Sodium), 40 MG PO BID Verapamil Hcl (Verapamil Hcl Er), 180 MG PO QPM Scheduled PRN Acetaminophen Tab (Tylenol), 650 MG PO Q4H PRN for Pain or Fever Sumatriptan Succinate (Imitrex), 100 MG PO UD PRN for Migraine Tramadol Hcl (Ultram), 50 MG PO BID PRN for Pain Allergies Coded Allergies: Morphine (Verified Adverse Reaction, Intermediate, " MAKES ME MEAN" - CONFUSION, 04/06/17) Physical Exam Vital Signs Date Time Temp Pulse Resp B/P (MAP) Pulse Ox O2 Delivery O2 Flow Rate FiO2 04/21/17 16:59 77 135/74 95 04/21/17 16:32 139/90 04/21/17 16:30 79 17 96 04/21/17 16:13 89 04/21/17 16:09 156/85 04/21/17 16:03 36.6 97 18 117/72 94 Room Air Physical Exam GENERAL: Patient is awake, alert, and somewhat anxious and uncomfortable appearing. EYES: The conjunctivae are clear. The pupils are round and reactive. EARS, NOSE, MOUTH AND THROAT: The nose is without any evidence of any deformity. Mucous membranes are moist tongue is midline NECK: The neck is nontender and supple. RESPIRATORY: Normal respiratory effort is noted there is no evidence of wheezing rhonchi or rales CARDIOVASCULAR: Regular rate and rhythm noted there no murmurs rubs or gallops normal S1 normal S2 GASTROINTESTINAL: The abdomen is soft. Bowel sounds are present in all quadrants. Abdomen is nontender MUSCULOSKELETAL/EXTREMITIES: There is no evidence of gross deformity full range of motion is noted in the hips and shoulders SKIN: There is no obvious evidence of any rash. There are no petechiae, pallor or cyanosis noted. NEUROLOGIC: Patient is awake alert and oriented x3 strength is symmetric patellar reflexes are 2+ bilaterally Medical Decision & Procedures Medications Administered Medications (Trade) Dose Ordered Sig/Melvin Route Start Time Stop Time Status Last Admin Dose Admin Hydromorphone HCl (Dilaudid Inj) 2 mg NOW STAT IM 04/21/17 16:26 04/21/17 16:28 DC 04/21/17 16:37 2 MG Prochlorperazine Edisylate (Compazine Inj) 10 mg NOW STAT IM 04/21/17 16:26 04/21/17 16:28 DC 04/21/17 16:38 10 MG Ketorolac Tromethamine (Toradol Inj) 60 mg NOW STAT IM 04/21/17 16:26 04/21/17 16:28 DC 04/21/17 16:35 60 MG ED Course 162: The patient was evaluated in room B11. A complete history and physical examination were performed. 162: Ordered Toradol 60 mg IM, Compazine 10 mg IM, Dilaudid 2 mg IM. 1701: Upon reevaluation, the patient is resting in bed. I discussed the results and treatment plan with her. She verbalized agreement of the treatment plan. The patient was discharged home. Medical Decision Differential diagnosis: Etiologies such as migraine headache, meningitis, sinusitis, CO exposure, ICH, SAH, infection, tumor, headache, sinus thrombosis, arterial dissection, as well as others were entertained. Nursing notes reviewed. The patient is a 71-year-old female who presented to the emergency department for an evaluation of headache. The patient has a long history of chronic headaches. She has had similar episodes in the past. I reviewed the patient's previous electronic medical records. She was given medications that she is received in the past and had good resolution of her symptoms. She was encouraged to rest and avoid any strenuous activity. She was encouraged to consider following up with her primary headache specialist as soon as possible. She was also encouraged to return to the emergency department immediately if symptoms change worsen or the need arises. Impression Primary Impression: Migraine Additional Impression: Headache Scribe Attestation The scribe's documentation has been prepared under my direction and personally reviewed by me in its entirety. I confirm that the note above accurately reflects all work, treatment, procedures, and medical decision making performed by me. Departure Information Dispostion Home / Self-Care Referrals George Montoya M.D. (PCP) Forms HOME CARE DOCUMENTATION FORM, IMPORTANT VISIT INFORMATION Patient Instructions My [facility] Additional Instructions Continue all medications as prescribed. Rest and avoid any strenuous activity. Return to the emergency department immediately if symptoms change worsen or the need arises. Problem Qualifiers Primary Impression: Migraine Migraine type: unspecified Status migrainosus presence: without status migrainosus Intractability: not intractable Qualified Codes: G43.909 - Migraine, unspecified, not intractable, without status migrainosus Additional Impression: Headache Headache type: unspecified Headache chronicity pattern: unspecified pattern Intractability: not intractable Qualified Codes: R51 - Headache
[2017-04-21 16:59] VITALS: BP 135/74; PULSE 77; O2SAT 95
[2017-04-21] MEDS ORDERED: CALC-393 PO (19:00)
[2017-04-21] MEDS ORDERED: VERA180C2 PO (22:11)
[2017-04-22] MEDS ORDERED: SULF800T23 PO (20:16)
[2017-04-27] MEDS ORDERED: METH4PAK PO (10:34)
[2017-05-01] MEDS ORDERED: AMOX500C3 PO (17:29)
[2017-05-12] MEDS ORDERED: LEVO750T23 PO (09:46)
[2017-06-02] MEDS ORDERED: MAGN400T6 PO (10:29)
[2017-07-22] MEDS ORDERED: METH500T3 PO (09:58)
[2017-07-22] MEDS ORDERED: PANT40TA2 PO (16:10)
[2017-07-22] MEDS ORDERED: NATA1INJ IV (16:15)
[2017-07-22] MEDS ORDERED: ULT/50 PO (16:39)
[2017-07-22] MEDS ORDERED: AMIT75TA2 PO (17:00)
[2017-07-22] MEDS ORDERED: NRN800 PO (17:00)
[2017-07-22] MEDS ORDERED: FERR1TAB62 PO (18:34)
[2017-08-25] MEDS ORDERED: ULT/50 PO (16:06)
[2017-08-25] MEDS ORDERED: PRED10TA PO (16:06)
[2017-08-25] MEDS ORDERED: LORA-741 PO (16:06)
== END 2017-04-21 17:01 | disposition home or self-care (01) ==
LOC: C.EDB 16:01
DX: G43.909 Migraine, unspecified, not intractable, without status migrainosus (principal); I10 Essential (primary) hypertension; K27.7 Chronic peptic ulcer, site unspecified, without hemorrhage or perforation; G35 Multiple sclerosis; Z87.440 Personal history of urinary (tract) infections; Z83.3 Family history of diabetes mellitus; Z82.49 Family history of ischemic heart disease and other diseases of the circulatory system; Z79.899 Other long term (current) drug therapy

== ENCOUNTER 2017-04-22 18:41 | Emergency (ER) | payer OTHER ==
[~2017-04-22] VITALS: Ht 160 cm; Wt 43.0 kg
[~2017-04-22 18:41] MED LIST changes: +CALC-393 PO; -ULT50 PO; +VERA180C2 PO
[2017-04-22 18:47] VITALS: TEMP 37.1; Ht 160 cm; Wt 43.0 kg
[2017-04-22] MEDS ORDERED: SULFAMETHOXAZOLE/TRIMETHOPRIM DS 800/160MG TAB PO ONE (19:15)
--- NOTE | 2017-04-22 19:17 | EMERGENCY ROOM VISIT NOTE ---
History Report prepared by Fidencio: Agustina Plascencia Under the Supervision of: Dr. Art Astorga D.O. First contact with patient: 18:53 Chief Complaint: URINARY SYMPTOMS Stated Complaint: UTI Nursing Triage Summary: pt c/o urgency and burning with urination, pt also having sme confusion which is normal when she gets a UTI per History of Present Illness The patient is a 71 year old female who presents to the Emergency Room with complaints of persistent urinary symptoms. She is accompanied by her . She reports she started experiencing dysuria and increased urinary frequency last night. She rates her overall discomfort from the dysuria as a 10/10 in severity. She denies her urine looking cloudy or blood tinged. The patient states she has a history of chronic UTI's. Her last UTI was approximately 1 month ago and she was treated with Bactrim. She also complains of feeling more confused than normal and her reports this confusion is typical for her normal UTI symptoms. She denies any recent fevers, cough or cold symptoms, nausea, vomiting or diarrhea. Source of History: patient, spouse/significant other () Onset: last night Position: other (urinary system) Symptom Intensity: Timing: other (persistent) Associated Symptoms: No fevers, No cough (cough or cold symptoms), No nausea , No vomiting, No diarrhea Review of Systems See HPI for pertinent positives & negatives. A total of 10 systems reviewed and were otherwise negative. Past Medical & Surgical Medical Problems: (1) Benign hypertension (2) Chronic peptic ulcer (3) Hysterectomy (4) Intertrochanteric fracture of right hip (5) Intertrochanteric fracture of right hip (6) Migraine (7) Multiple sclerosis (8) Multiple sclerosis (9) Multiple sclerosis exacerbation (10) non cardiac chest pain related to gi (11) Sepsis (12) STAPHYLOCOCCAL SEPTICEMIA, NEC (13) UTI (urinary tract infection) Surgical Problems: (1) S/P partial gastrectomy Family History Diabetes mellitus FH: cholecystectomy FHx: heart disease Social History Smoking Status: Former Smoker Alcohol Use: none Drug Use: none Marital Status: Housing Status: lives with family Occupation Status: retired Current/Historical Medications Scheduled Alendronate Sodium (Alendronate Sodium), 70 MG PO WK Amitriptyline Hcl (Elavil), 75 MG PO HS Calcium Carbonate (Calcium), 600 MG PO TID Cholecalciferol (Vitamin D3), 1,000 INTER.UNIT PO TID Ferrous Sulfate (Ferrous Sulfate), 325 MG PO BID Gabapentin (Gabapentin), 800 MG PO TID Magnesium Oxide (Mag-Ox), 400 MG PO QAM Midodrine Hcl (Midodrine Hcl), 5 MG PO TID Mirtazapine (Mirtazapine), 45 MG PO HS Natalizumab (Tysabri), 1 DOSE IV MONTHLY Pantoprazole (Pantoprazole Sodium), 40 MG PO BID Sulfa/Trimethoprim (Bactrim Ds 800MG/160MG), 1 TAB PO BID Verapamil Hcl (Verapamil Hcl Er), 180 MG PO QPM Scheduled PRN Acetaminophen Tab (Tylenol), 650 MG PO Q4H PRN for Pain or Fever Sumatriptan Succinate (Imitrex), 100 MG PO UD PRN for Migraine Tramadol Hcl (Ultram), 50 MG PO BID PRN for Pain Allergies Coded Allergies: Morphine (Verified Adverse Reaction, Intermediate, " MAKES ME MEAN" - CONFUSION, 04/06/17) Physical Exam Vital Signs Date Time Temp Pulse Resp B/P (MAP) Pulse Ox O2 Delivery O2 Flow Rate FiO2 04/22/17 20:53 101 16 138/66 93 04/22/17 18:47 37.1 106 16 145/69 93 Room Air Physical Exam GENERAL: Patient is awake, alert, in no acute distress, patient is resting comfortably and showing no signs of anxiety EYES: The conjunctivae are clear. The pupils are round and reactive. EARS, NOSE, MOUTH AND THROAT: The nose is without any evidence of any deformity. Mucous membranes are moist tongue is midline NECK: The neck is nontender and supple. RESPIRATORY: Normal respiratory effort is noted there is no evidence of wheezing rhonchi or rales CARDIOVASCULAR: Regular rate and rhythm noted there no murmurs rubs or gallops normal S1 normal S2 GASTROINTESTINAL: The abdomen is soft. Bowel sounds are present in all quadrants. Abdomen is nontender MUSCULOSKELETAL/EXTREMITIES: There is no evidence of gross deformity full range of motion is noted in the hips and shoulders SKIN: There is no obvious evidence of any rash. There are no petechiae, pallor or cyanosis noted. NEUROLOGIC: Patient is awake alert and oriented x3 strength is symmetric patellar reflexes are 2+ bilaterally Medical Decision & Procedures Laboratory Results Test 04/22/17 00:00 Urine Color DK YELLOW Urine Appearance TURBID (CLEAR) Urine pH 6.5 (4.5-7.5) Urine Specific Kaufman 1.021 (1.000-1.030) Urine Protein TRACE (NEG) Urine Glucose (UA) NEG (NEG) Urine Ketones NEG (NEG) Urine Occult Blood 1+ (NEG) Urine Nitrite NEG (NEG) Urine Bilirubin NEG (NEG) Urine Urobilinogen NEG (NEG) Urine Leukocyte Esterase LARGE (NEG) Urine WBC (Auto) >30 /hpf (0-5) Urine RBC (Auto) 5-10 /hpf (0-4) Urine Hyaline Casts (Auto) 1-5 /lpf (0-5) Urine Epithelial Cells (Auto) 0-5 /lpf (0-5) Urine Bacteria (Auto) 4+ (NEG) Laboratory results per my review. Medications Administered Medications (Trade) Dose Ordered Sig/Melvin Route Start Time Stop Time Status Last Admin Dose Admin Trimethoprim/ Sulfamethoxazole (Septra Ds 800/ 160MG Tab) 1 tab NOW ONCE PO 04/22/17 19:15 04/22/17 19:16 DC 04/22/17 19:32 1 TAB Ondansetron HCl (ZOFRAN ODT 4MG Home Pack) 1 homepack UD ONCE PO 04/22/17 20:15 04/22/17 20:16 DC 04/22/17 20:52 1 HOMEPACK Trimethoprim/ Sulfamethoxazole (Sulfameth/ Trimeth Ds 800/ 160MG Home Pack) 1 homepack UD ONCE PO 04/22/17 20:15 04/22/17 20:16 DC 04/22/17 20:52 1 HOMEPACK ED Course 190: The patient was evaluated in room B10. A complete history and physical examination were performed. 1914: Septra Ds 800/160 mg 1 tab PO. 2014: Sulfameth/Trimeth Ds 800/160 mg 1 homepack PO, Zofran 4 mg 1 homepack PO. 2015: I reevaluated the patient. She is feeling better. I discussed her results and discharge instructions and she verbalized complete understanding and agreement. Medical Decision Medication Reconciliation: I attest that I have personally reviewed the patient' s current medications list. Patient was found to have a slightly elevated blood pressure due to circumstances. I do not believe that the patient requires hypertension monitoring. Prior records/ancillary studies reviewed. Triage Nursing notes reviewed. The patient's history was concerning for abdominal pain. Differential diagnosis: Etiologies such as appendicitis, diverticulitis, PUD, biliary pathology, UTI, pancreatitis, obstruction, mesenteric ischemia, aortic pathology, infections, inflammatory bowel disease, renal colic, as well as others were entertained. The patient is a 71-year-old female who presented to the emergency department for an evaluation of dysuria and frequency. The patient has a history of urinary tract infections in the past. She states that she's been treated with Bactrim past without difficulty. I reviewed the patient's previous urine cultures. She has had multiple infectious agents causing her urine infections. She was started on Bactrim in the emergency department. She was encouraged to continue all medications as prescribed. She was also encouraged to follow-up with her primary care physician this week for reevaluation but return to the emergency apartment immediately if symptoms change worsen or the need arises. Impression Primary Impression: Cystitis Scribe Attestation The scribe's documentation has been prepared under my direction and personally reviewed by me in its entirety. I confirm that the note above accurately reflects all work, treatment, procedures, and medical decision making performed by me. Departure Information Dispostion Home / Self-Care Prescriptions Sulfa/Trimethoprim (Bactrim Ds 800MG/160MG) Tab 1 TAB PO BID, #14 TAB Prov: Art Astorga, DO 04/22/17 Referrals George Montoya M.D. (PCP) Patient Instructions ED UTI Cystitis Female, My [facility] Additional Instructions Call your family doctor on Monday to schedule a follow-up appointment. Drink plenty clear liquids. Continue all medications as prescribed. Return to the emergency department immediately if symptoms change worsen or the need arises.
[2017-04-22 19:43] LABS: URINE APPEARANCE TURBID (CLEAR); URINE BILIRUBIN NEG (NEG); URINE COLOR DK YELLOW; URINE EPITHELIAL CELL AUTO 0-5 /lpf (0-5); URINE NITRITE NEG (NEG); URINE PH 6.5 (4.5-7.5); URINE SPECIFIC GRAVITY 1.021 (1.000-1.030); UROBILINOGEN NEG (NEG); ZZURINE CULT IF INDIC CATH YES
[2017-04-22 19:44] LABS: MANUAL MICROSCOPIC REQUIRED? NO; REVIEW REQ? NO
[2017-04-22] MEDS ORDERED: ONDANSETRON HOME PACK 4MG OD TAB PO ONE (20:15)
[2017-04-22] MEDS ORDERED: SEPTRA DS HOME PACK 1 EA VIAL PO ONE (20:15)
[2017-04-22] MEDS ORDERED: SULF800T23 PO (20:16)
[2017-04-22 20:53] VITALS: BP 138/66; PULSE 101; O2SAT 93
--- NOTE | 2017-04-25 11:57 | Pharmacy Progress Note ---
ED Pharmacist Culture FollowUp Date of Service: Apr 25, 2017. Patient was sent home with a prescription for Bactrim DS 1 PO BID x 7 days, which should cover the kleb pneumoniae growing from the patient's URINE culture. This is a complicated UTI given h/o Tysabri use (immunocompromise) and should be treated for minimum of 7 days - the duration of tx is appropriate. No action required.
[2017-04-27] MEDS ORDERED: METH4PAK PO (10:34)
[2017-05-01] MEDS ORDERED: AMOX500C3 PO (17:29)
[2017-05-12] MEDS ORDERED: LEVO750T23 PO (09:46)
[2017-06-02] MEDS ORDERED: MAGN400T6 PO (10:29)
[2017-07-22] MEDS ORDERED: METH500T3 PO (09:58)
[2017-07-22] MEDS ORDERED: PANT40TA2 PO (16:10)
[2017-07-22] MEDS ORDERED: NATA1INJ IV (16:15)
[2017-07-22] MEDS ORDERED: ULT/50 PO (16:39)
[2017-07-22] MEDS ORDERED: NRN800 PO (17:00)
[2017-07-22] MEDS ORDERED: AMIT75TA2 PO (17:00)
[2017-07-22] MEDS ORDERED: FERR1TAB62 PO (18:34)
[2017-08-25] MEDS ORDERED: ULT/50 PO (16:06)
[2017-08-25] MEDS ORDERED: LORA-741 PO (16:06)
[2017-08-25] MEDS ORDERED: PRED10TA PO (16:06)
== END 2017-04-22 20:55 | disposition home or self-care (01) ==
LOC: C.EDB 18:42
DX: N30.90 Cystitis, unspecified without hematuria (principal); Z87.440 Personal history of urinary (tract) infections; I10 Essential (primary) hypertension; G35 Multiple sclerosis; Z87.11 Personal history of peptic ulcer disease; Z87.81 Personal history of (healed) traumatic fracture; Z87.891 Personal history of nicotine dependence; Z79.899 Other long term (current) drug therapy; Z90.49 Acquired absence of other specified parts of digestive tract; Z88.5 Allergy status to narcotic agent; Z83.3 Family history of diabetes mellitus; Z82.49 Family history of ischemic heart disease and other diseases of the circulatory system; Z83.79 Family history of other diseases of the digestive system

== ENCOUNTER 2017-04-24 08:09 | Inpatient (IN) | payer OTHER ==
[~2017-04-24] VITALS: Ht 160 cm; Wt 43.8 kg
[~2017-04-24 08:09] MED LIST changes: +SULF800T23 PO
[2017-04-24] MEDS ORDERED: CEFTRIAXONE SOD INJ 1 GM ADDVIAL IV STA (08:32)
[2017-04-24] MEDS ORDERED: SODIUM CHLORIDE 0.9% 1000ML 1,000 ML IV STA (08:32)
[2017-04-24] MEDS ORDERED: ETHYL CHLORIDE AER PER SPRAY 100 ML CAN ONE (08:35)
--- NOTE | 2017-04-24 08:35 | EMERGENCY ROOM VISIT NOTE ---
History Report prepared by Fidencio: Anu Shelton Under the Supervision of: Dr. Javier Liu M.D. First contact with patient: 08:15 Chief Complaint: WEAKNESS Stated Complaint: GENERALIZED WEAKNESS History of Present Illness The patient is a 71 year old female who presents to the Emergency Room with complaints of constant generalized weakness that started NET SOFTWARE ARCHITECT. The patient came to the ED via ambulance. Per nursing staff, the patient's helped her stand up to transfer her to another chair and she was unable to stand up. She states that she is typically able to stand on her own. The patient denies any other complaints. The patient has a history of MS and states that her most recent flare up was last week when she was in the hospital. She states that with flare ups, she is unable to walk or "do anything." She follows with Dr. Gerardo - Neurology.for her MS. She was seen in the ED 2 days ago and she was diagnosed with an UTI and started on Bactrim. She is on the ED treatment plan for 2 shots a month and did not receive any shots during that visit. She is unsure of when she was most recently on steroids. Source of History: patient, nursing staff Onset: NET SOFTWARE ARCHITECT Position: other (global) Quality: other (generalized weakness) Timing: constant Note: no other complaints Review of Systems See HPI for pertinent positives & negatives. A total of 10 systems reviewed and were otherwise negative. Past Medical & Surgical Medical Problems: (1) Benign hypertension (2) Chronic peptic ulcer (3) Hysterectomy (4) Intertrochanteric fracture of right hip (5) Intertrochanteric fracture of right hip (6) Migraine (7) Multiple sclerosis (8) Multiple sclerosis (9) Multiple sclerosis exacerbation (10) non cardiac chest pain related to gi (11) Sepsis (12) STAPHYLOCOCCAL SEPTICEMIA, NEC (13) UTI (urinary tract infection) Surgical Problems: (1) S/P partial gastrectomy Family History Diabetes mellitus FH: cholecystectomy FHx: heart disease Social History Smoking Status: Former Smoker Alcohol Use: none Drug Use: none Marital Status: Housing Status: lives with family Occupation Status: retired Current/Historical Medications Scheduled Alendronate Sodium (Alendronate Sodium), 70 MG PO WK Amitriptyline Hcl (Elavil), 75 MG PO HS Cholecalciferol (Vitamin D3), 4,000 INTER.UNIT PO DAILY Ferrous Sulfate (Ferrous Sulfate), 325 MG PO BID Gabapentin (Gabapentin), 800 MG PO TID Magnesium Oxide (Mag-Ox), 400 MG PO QAM Methylcellulose (Laxative) (Citrucel), 2,000 MG PO DAILY Midodrine Hcl (Midodrine Hcl), 5 MG PO TID Mirtazapine (Mirtazapine), 45 MG PO HS Natalizumab (Tysabri), 1 DOSE IV MONTHLY Pantoprazole (Pantoprazole Sodium), 40 MG PO BID Sulfa/Trimethoprim (Bactrim Ds 800MG/160MG), 1 TAB PO BID Scheduled PRN Acetaminophen Tab (Tylenol), 325 MG PO DAILY PRN for Pain or Fever Sumatriptan Succinate (Imitrex), 100 MG PO UD PRN for Migraine Tramadol Hcl (Ultram), 50 MG PO BID PRN for Pain Allergies Coded Allergies: Morphine (Verified Adverse Reaction, Intermediate, " MAKES ME MEAN" - CONFUSION, 04/06/17) Physical Exam Vital Signs Date Time Temp Pulse Resp B/P (MAP) Pulse Ox O2 Delivery O2 Flow Rate FiO2 04/24/17 14:09 101 18 163/93 96 Room Air 04/24/17 12:30 94 16 143/87 93 Room Air 04/24/17 12:17 96 04/24/17 10:47 36.8 99 20 172/108 97 Room Air 04/24/17 09:12 95 18 157/86 98 Room Air 04/24/17 08:41 105 156/87 111 144/74 04/24/17 08:30 102 04/24/17 08:20 36.7 118 20 171/90 97 Room Air 04/24/17 08:19 95 Room Air Physical Exam GENERAL: Patient is a healthy-appearing well-nourished older female. HEAD: Normocephalic atraumatic EYES: Ocular movements intact pupils equal and react to light OROPHARYNX mucous membranes are moist no exudates present no erythema or edema present NECK: Supple no nuchal rigidity CHEST: Good equal expansion LUNGS: Clear and equal to auscultation CARDIAC: Normal S1 and S2 ABDOMEN: Soft nontender no guarding BACK: No CVA tenderness EXTREMITIES: No pain upon palpation normal muscle strength in all groups no clubbing cyanosis or edema NEURO: Patient is following commands is answering questions appropriately. Alert and oriented x3 Cranial Nerves 2-12 grossly intact Medical Decision & Procedures ER Provider Diagnostic Interpretation: Radiology results as stated below per my review and radiologist interpretation: CHEST ONE VIEW PORTABLE FINDINGS: Prior stabilization procedure of the thoracolumbar spine. Lungs are clear. Central catheter in superior vena cava. IMPRESSION: No acute process. Electronically signed by: Geovany De Jesus M.D. 04/24/2017 9:01 AM Dictated Date/Time: 04/24/2017 9:00 AM Laboratory Results 04/24/17 09:30 Red Blood Count 4.24, Mean Corpuscular Volume 92.5, Mean Corpuscular Hemoglobin 30.2, Mean Corpuscular Hemoglobin Concent 32.7, Mean Platelet Volume 10.1, Neutrophils (%) (Auto) 70.9, Lymphocytes (%) (Auto) 14.8, Monocytes (%) (Auto) 9.6, Eosinophils (%) (Auto) 4.4, Basophils (%) (Auto) 0.2, Neutrophils # (Auto) 6.60, Lymphocytes # (Auto) 1.38, Monocytes # (Auto) 0.89, Eosinophils # (Auto) 0.41, Basophils # (Auto) 0.02 04/24/17 09:30 Test 04/24/17 08:37 04/24/17 09:30 04/24/17 10:35 Bedside Glucose 72 mg/dl (70-90) White Blood Count 9.31 K/uL (4.8-10.8) Red Blood Count 4.24 M/uL (4.2-5.4) Hemoglobin 12.8 g/dL (12.0-16.0) Hematocrit 39.2 % (37-47) Mean Corpuscular Volume 92.5 fL (80-100) Mean Corpuscular Hemoglobin 30.2 pg (25-34) Mean Corpuscular Hemoglobin Concent 32.7 g/dl (32-36) Platelet Count 211 K/uL (130-400) Mean Platelet Volume 10.1 fL (7.4-10.4) Neutrophils (%) (Auto) 70.9 % Lymphocytes (%) (Auto) 14.8 % Monocytes (%) (Auto) 9.6 % Eosinophils (%) (Auto) 4.4 % Basophils (%) (Auto) 0.2 % Neutrophils # (Auto) 6.60 K/uL (1.4-6.5) Lymphocytes # (Auto) 1.38 K/uL (1.2-3.4) Monocytes # (Auto) 0.89 K/uL (0.11-0.59) Eosinophils # (Auto) 0.41 K/uL (0-0.5) Basophils # (Auto) 0.02 K/uL (0-0.2) RDW Standard Deviation 52.7 fL (36.4-46.3) RDW Coefficient of Variation 15.5 % (11.5-14.5) Immature Granulocyte % (Auto) 0.1 % Immature Granulocyte # (Auto) 0.01 K/uL (0.00-0.02) Anion Gap 6.0 mmol/L (3-11) Est Creatinine Clear Calc Drug Dose 72.5 ml/min Estimated GFR () 113.0 Estimated GFR (Non- 97.5 BUN/Creatinine Ratio 25.8 (10-20) Calcium Level 7.9 mg/dl (8.5-10.1) Total Bilirubin 0.3 mg/dl (0.2-1) Direct Bilirubin < 0.1 mg/dl (0-0.2) Aspartate Amino Transf (AST/SGOT) 17 U/L (15-37) Alanine Aminotransferase (ALT/SGPT) 15 U/L (12-78) Alkaline Phosphatase 124 U/L (45-117) Total Creatine Kinase 54 U/L (26-192) Creatine Kinase MB 2.5 ng/ml (0.5-3.6) Creatine Kinase MB Ratio 4.6 (0-3.0) Troponin I < 0.015 ng/ml (0-0.045) Total Protein 5.1 gm/dl (6.4-8.2) Albumin 2.4 gm/dl (3.4-5.0) Thyroid Stimulating Hormone (TSH) 0.201 uIu/ml (0.300-4.500) Urine Color YELLOW Urine Appearance CLOUDY (CLEAR) Urine pH 7.5 (4.5-7.5) Urine Specific [place] 1.016 (1.000-1.030) Urine Protein NEG (NEG) Urine Glucose (UA) NEG (NEG) Urine Ketones NEG (NEG) Urine Occult Blood TRACE (NEG) Urine Nitrite POS (NEG) Urine Bilirubin NEG (NEG) Urine Urobilinogen NEG (NEG) Urine Leukocyte Esterase LARGE (NEG) Urine WBC (Auto) >30 /hpf (0-5) Urine RBC (Auto) 0-4 /hpf (0-4) Urine Hyaline Casts (Auto) 0 /lpf (0-5) Urine Epithelial Cells (Auto) 10-20 /lpf (0-5) Urine Bacteria (Auto) 1+ (NEG) Labs reviewed by ED physician. Medications Administered Medications (Trade) Dose Ordered Sig/Melvin Route Start Time Stop Time Status Last Admin Dose Admin Sodium Chloride 1,000 ml @ 999 mls/hr Q1H1M STAT IV 04/24/17 08:32 04/24/17 09:32 DC 04/24/17 09:12 999 MLS/HR Ceftriaxone Sodium (Rocephin Inj) 1 gm NOW STAT IV 04/24/17 08:32 04/24/17 08:34 DC 04/24/17 09:12 1 GM Ethyl Chloride (Ethyl Chloride Aerosol) 100 ml 0900 EXT 04/24/17 09:00 04/24/17 11:00 DC 04/24/17 09:00 100 ML ECG Indication: weakness Rate (beats per minute): 102 Rhythm: sinus tachycardia Findings: no acute ischemic change, no ectopy ED Course 0822: Past medical records reviewed. The patient was evaluated in room B6. A complete history and physical examination was performed. 0832: Ordered Rocephin Inj 1 gm IV, Sodium Chloride 1000 ml @ 999 mls/hr IV 0900: Ordered Ethyl Chloride 100 ml EXT 1136: Upon reexamination the patient is resting comfortably. I discussed results and treatment plan with the patient and her . The patient's does not feel comfortable taking the patient home so she will be evaluated by the hospitalist service. They verbalize agreement and understanding. The patient will be evaluated for further management. 1146: I discussed the patient's case with Dr. Lizette BORGES, he has agreed to evaluate the patient for further management and care. Medical Decision Differential diagnosis: Etiologies such as metabolic, infection, hypo/hyperglycemia, electrolyte abnormalities, cardiac sources, intracerebral event, toxicologic, neurologic, as well as others were entertained. Medication Reconciliation: I attest that I have personally reviewed the patient' s current medication list. Blood Pressure Screening: Patient was found to have an elevated blood pressure and was referred to their primary care doctor for recheck and further treatment This is a 71-year-old female who presents emergency department. The patient was recently treated with Bactrim for urinary tract infection however the patient notes she usually has MS flares after having a urinary tract infection. The patient's is concerned because she is weak and appears confused. She was given normal saline bolus in the emergency department and started on Rocephin. I did discuss case with the hospitalist service who agreed to admit the patient. Patient was in agreement with the treatment plan. Consults Time Called: 1142 Consulting Physician: Dr. Lizette BORGES Returned Call: 1141 I discussed the patient's case with Dr. Lizette BORGES, he has agreed to evaluate the patient for further management and care. Impression Primary Impression: UTI (urinary tract infection) Additional Impression: Altered mental status Scribe Attestation The scribe's documentation has been prepared under my direction and personally reviewed by me in its entirety. I confirm that the note above accurately reflects all work, treatment, procedures, and medical decision making performed by me. Departure Information Dispostion Being Evaluated By Hospitalist Referrals George Montoya M.D. (PCP) Patient Instructions My [facility] Problem Qualifiers Primary Impression: UTI (urinary tract infection) Urinary tract infection type: site unspecified Hematuria presence: without hematuria Qualified Codes: N39.0 - Urinary tract infection, site not specified Additional Impression: Altered mental status Altered mental status type: unspecified Qualified Codes: R41.82 - Altered mental status, unspecified
[2017-04-24] MEDS ORDERED: ETHYL CHLORIDE AER SPR 100 ML CAN EXT SCH (09:00)
--- NOTE | 2017-04-24 09:02 | DIAGNOSTIC IMAGING REPORT ---
CHEST ONE VIEW PORTABLE CLINICAL HISTORY: Pt c/o gen weakness chest pain. Dyspnea. COMPARISON STUDY: No previous studies for comparison. FINDINGS: Prior stabilization procedure of the thoracolumbar spine. Lungs are clear. Central catheter in superior vena cava. IMPRESSION: No acute process. Electronically signed by: Geovany De Jesus M.D. 04/24/2017 9:01 AM Dictated Date/Time: 04/24/2017 9:00 AM
[2017-04-24 09:47] LABS: BASO % 0.2 %; BASO ABS # 0.02 K/uL (0-0.2); COMPLETE YES; EOS % 4.4 %; HEMATOCRIT 39.2 % (37-47); IG% 0.1 %; LYMPH % 14.8 %; LYMPH ABS # 1.38 K/uL (1.2-3.4); MEAN CELL VOLUME 92.5 fL (80-100); MEAN CORPUSCULAR HEMOGLOBIN 30.2 pg (25-34); MEAN CORPUSCULAR HGB CONC 32.7 g/dl (32-36); MEAN PLATELET VOLUME 10.1 fL (7.4-10.4); MONO % 9.6 %; NEUT % 70.9 %; PLATELET COUNT 211 K/uL (130-400); RED BLOOD COUNT 4.24 M/uL (4.2-5.4); WHITE BLOOD COUNT 9.31 K/uL (4.8-10.8)
[2017-04-24 10:06] LABS: ALT/SGPT 15 U/L (12-78); BLOOD UREA NITROGEN 13 mg/dl (7-18); BUN/CREATININE RATIO 25.8 (10-20); CARBON DIOXIDE 31 mmol/L (21-32); CHLORIDE 104 mmol/L (98-107); CREATININE 0.52 mg/dl (0.60-1.20); GLUCOSE 82 mg/dl (70-99); POTASSIUM 4.4 mmol/L (3.5-5.1); SODIUM 141 mmol/L (136-145)
[2017-04-24 10:08] LABS: CALCIUM 7.9 mg/dl (8.5-10.1)
[2017-04-24 10:17] LABS: ALKALINE PHOSPHATASE 124 U/L (45-117); AST/SGOT 17 U/L (15-37); CKMB/CK RATIO 4.6 (0-3.0); THYROID STIMULATING HORMONE 0.201 uIu/ml (0.300-4.500)
[2017-04-24 10:54] LABS: URINE APPEARANCE CLOUDY (CLEAR); URINE BILIRUBIN NEG (NEG); URINE COLOR YELLOW; URINE NITRITE POS (NEG); URINE PH 7.5 (4.5-7.5); URINE SPECIFIC GRAVITY 1.016 (1.000-1.030); UROBILINOGEN NEG (NEG)
[2017-04-24 10:55] LABS: MANUAL MICROSCOPIC REQUIRED? NO; REVIEW REQ? NO
[2017-04-24] MEDS ORDERED: ALUMINUM/MAGNESIUM/SIMETH (MAALOX MAX) 30 ML UDC PO PRN (13:30)
[2017-04-24] MEDS ORDERED: ONDANSETRON INJ 2 MG/ML 2 ML VIAL IV PRN (13:30)
[2017-04-24] MEDS ORDERED: POLYETHYLENE (MIRALAX) 17 GM PACK PO PRN (13:30)
[2017-04-24] MEDS ORDERED: TRAMADOL HCL 50 MG TAB PO PRN (13:30)
[2017-04-24] MEDS ORDERED: ACETAMINOPHEN 325 MG TAB PO PRN (13:30)
[2017-04-24] MEDS ORDERED: HydrALAZINE HCL 20 MG/ML VIAL IV. PRN (13:30)
[2017-04-24] MEDS ORDERED: MAGNESIUM HYDROXIDE SUSP 30 ML UDC PO PRN (13:30)
--- NOTE | 2017-04-24 13:58 | History and Physical ---
History & Physical Date & Time of Service: Apr 24, 2017 at 13:40 Chief Complaint: Generalized Weakness Primary Care Physician: George Montoya M.D. History of Present Illness Source: patient, clinic records, hospital records Patient is a pleasant 71 y/o female, with PMHx of MS, HTN, orthostatic hypotension, h/o migraines, chronic anemia, anxiety, and GERD, who presented to the ED because of generalized weakness. Patient was seen in the ED on 04/22 for urinary symptoms. She was found to have a UTI and started on Bactrim Ds BID x7 days. Over the course of the last couple of days, she started to experience generalized weakness. Today she was unable to stand on her own; normally she is able to stand for a short period of time on her own. She admit that her urinary symptoms have improved. No family was present at bedside, but according to the patient, she stated that her stated she was experiencing confusion. Patient is alert and oriented x2; disoriented to time. She states with her MS flares, she experiences generalized weakness. She follows w/ Dr. Gerardo. Patient denies any fever, chills, sweats, lightheadedness, dizziness, vision changes, CP , palpitations, edema, SOB, wheezing, cough, abdominal pain, nausea, vomiting, diarrhea, urinary symptoms, melena, numbness/tingling, muscle/joint pain, anxiety/depression, active bleeding, or new skin discoloration/changes. Past Medical/Surgical History Medical Problems: 1. HTN 2. Orthostatic hypotension 3. Migraines 4. Chronic anemia 5. Anxiety 6. GERD 7. Multiple sclerosis Surgical Problems: 1. 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 Allergies Coded Allergies: Morphine (Verified Adverse Reaction, Intermediate, " MAKES ME MEAN" - CONFUSION, 04/06/17) Home Medications Scheduled Alendronate Sodium (Alendronate Sodium), 70 MG PO WK Amitriptyline Hcl (Elavil), 75 MG PO HS Cholecalciferol (Vitamin D3), 4,000 INTER.UNIT PO DAILY Ferrous Sulfate (Ferrous Sulfate), 325 MG PO BID Gabapentin (Gabapentin), 800 MG PO TID Magnesium Oxide (Mag-Ox), 400 MG PO QAM Methylcellulose (Laxative) (Citrucel), 2,000 MG PO DAILY Midodrine Hcl (Midodrine Hcl), 5 MG PO TID Mirtazapine (Mirtazapine), 45 MG PO HS Natalizumab (Tysabri), 1 DOSE IV MONTHLY Pantoprazole (Pantoprazole Sodium), 40 MG PO BID Sulfa/Trimethoprim (Bactrim Ds 800MG/160MG), 1 TAB PO BID Scheduled PRN Acetaminophen Tab (Tylenol), 325 MG PO DAILY PRN for Pain or Fever Sumatriptan Succinate (Imitrex), 100 MG PO UD PRN for Migraine Tramadol Hcl (Ultram), 50 MG PO BID PRN for Pain Physical Exam Vital Signs Date Time Temp Pulse Resp B/P (MAP) Pulse Ox O2 Delivery O2 Flow Rate FiO2 04/24/17 12:30 94 16 143/87 93 Room Air 04/24/17 12:17 96 04/24/17 10:47 36.8 99 20 172/108 97 Room Air 04/24/17 09:12 95 18 157/86 98 Room Air 04/24/17 08:41 105 156/87 111 144/74 04/24/17 08:30 102 04/24/17 08:20 36.7 118 20 171/90 97 Room Air 04/24/17 08:19 95 Room Air General Appearance: no apparent distress Head: normocephalic, atraumatic Eyes: normal inspection, PERRL ENT: hearing grossly normal Neck: supple Respiratory/Chest: lungs clear, no respiratory distress, no accessory muscle use Cardiovascular: regular rate, rhythm Abdomen/GI: normal bowel sounds, non tender, soft Extremities/Musculoskelatal: no calf tenderness, no pedal edema Neurologic/Psych: alert, normal mood/affect, + disoriented (to time ) Skin: normal color, warm/dry, no rash Diagnostics Laboratory Results Results Past 24 Hours Test 04/24/17 08:37 04/24/17 09:30 04/24/17 10:35 Range/Units Bedside Glucose 72 70-90 mg/dl White Blood Count 9.31 4.8-10.8 K/uL Red Blood Count 4.24 4.2-5.4 M/uL Hemoglobin 12.8 12.0-16.0 g/dL Hematocrit 39.2 37-47 % Mean Corpuscular Volume 92.5 80-100 fL Mean Corpuscular Hemoglobin 30.2 25-34 pg Mean Corpuscular Hemoglobin Concent 32.7 32-36 g/dl Platelet Count 211 130-400 K/uL Mean Platelet Volume 10.1 7.4-10.4 fL Neutrophils (%) (Auto) 70.9 % Lymphocytes (%) (Auto) 14.8 % Monocytes (%) (Auto) 9.6 % Eosinophils (%) (Auto) 4.4 % Basophils (%) (Auto) 0.2 % Neutrophils # (Auto) 6.60 1.4-6.5 K/uL Lymphocytes # (Auto) 1.38 1.2-3.4 K/uL Monocytes # (Auto) 0.89 0.11-0.59 K/uL Eosinophils # (Auto) 0.41 0-0.5 K/uL Basophils # (Auto) 0.02 0-0.2 K/uL RDW Standard Deviation 52.7 36.4-46.3 fL RDW Coefficient of Variation 15.5 11.5-14.5 % Immature Granulocyte % (Auto) 0.1 % Immature Granulocyte # (Auto) 0.01 0.00-0.02 K/uL Sodium Level 141 136-145 mmol/L Potassium Level 4.4 3.5-5.1 mmol/L Chloride Level 104 98-107 mmol/L Carbon Dioxide Level 31 21-32 mmol/L Anion Gap 6.0 3-11 mmol/L Blood Urea Nitrogen 13 7-18 mg/dl Creatinine 0.52 0.60-1.20 mg/dl Est Creatinine Clear Calc Drug Dose 72.5 ml/min Estimated GFR () 113.0 Estimated GFR (Non- 97.5 BUN/Creatinine Ratio 25.8 10-20 Random Glucose 82 70-99 mg/dl Calcium Level 7.9 8.5-10.1 mg/dl Total Bilirubin 0.3 0.2-1 mg/dl Direct Bilirubin < 0.1 0-0.2 mg/dl Aspartate Amino Transf (AST/SGOT) 17 15-37 U/L Alanine Aminotransferase (ALT/SGPT) 15 12-78 U/L Alkaline Phosphatase 124 45-117 U/L Total Creatine Kinase 54 26-192 U/L Creatine Kinase MB 2.5 0.5-3.6 ng/ml Creatine Kinase MB Ratio 4.6 0-3.0 Troponin I < 0.015 0-0.045 ng/ml Total Protein 5.1 6.4-8.2 gm/dl Albumin 2.4 3.4-5.0 gm/dl Thyroid Stimulating Hormone (TSH) 0.201 0.300-4.500 uIu/ml Urine Color YELLOW Urine Appearance CLOUDY CLEAR Urine pH 7.5 4.5-7.5 Urine Specific [place] 1.016 1.000-1.030 Urine Protein NEG NEG Urine Glucose (UA) NEG NEG Urine Ketones NEG NEG Urine Occult Blood TRACE NEG Urine Nitrite POS NEG Urine Bilirubin NEG NEG Urine Urobilinogen NEG NEG Urine Leukocyte Esterase LARGE NEG Urine WBC (Auto) >30 0-5 /hpf Urine RBC (Auto) 0-4 0-4 /hpf Urine Hyaline Casts (Auto) 0 0-5 /lpf Urine Epithelial Cells (Auto) 10-20 0-5 /lpf Urine Bacteria (Auto) 1+ NEG Diagnostic Radiology CHEST ONE VIEW PORTABLE CLINICAL HISTORY: Pt c/o gen weakness chest pain. Dyspnea. COMPARISON STUDY: No previous studies for comparison. FINDINGS: Prior stabilization procedure of the thoracolumbar spine. Lungs are clear. Central catheter in superior vena cava. IMPRESSION: No acute process. Electronically signed by: Geovany De Jesus M.D. 04/24/2017 9:01 AM Dictated Date/Time: 04/24/2017 9:00 AM The status of this report is Signed. Draft = Not yet reviewed or approved by Radiologist. Signed = Reviewed and approved by Radiologist. EKG REAGAN CORMIER ID:[id number] 24-APR-2017 08:42:02 [facility] Sinus tachycardia Nonspecific T wave abnormality When compared with ECG of 04-NOV-2016 09:36, No significant change was found Confirmed by ROB SEGUNDO ([id number]) on 04/24/2017 12:11:55 PM 25mm/s 10mm/mV 150Hz 8.0 SP2 12SL 241 TANK: 10 Referred by: Referred Self Confirmed By: ROB Cruz. rate 102 BPM NC interval 162 ms QRS duration 74 ms QT/QTc 350/456 ms P-R-T axes 65 -11 114 1945 (71 yr) Female 47in 1lb Room: Loc: Gem Setter:SANGITA Vasquez ind: Impression Assessment and Plan Patient is a pleasant 71 y/o female, with PMHx of MS, HTN, orthostatic hypotension, h/o migraines, chronic anemia, anxiety, and GERD, who presented to the ED because of generalized weakness. Generalized weakness, ?secondary to MS flare w/ h/o MS: - Admit to med/surg - IV NSS @ 80 ml/hr - IV SoluMedrol 1000 mg daily - Continue Tysabri injections monthly and Gabapentin 800 mg TID - PT/OT - Consult neurology, appreciate recommendations- follows w/ Dr. Gerardo UTI: - Started Bactrim Ds on 04/22- growing klebsiella pneumoniae- sensitives reviewed - will d/c at this time and continue IV Rocephin started in ED Chronic anemia- STABLE: Continue Ferrous sulfate 325 mg BID Hypomagnesium: - Continue Mag-Ox supplement 400 mg daily - Check mag level Orthostatic hypotension/HTN: - Midodrine 5 mg TID - Hydralazine 10 mg IV PRN for SBP >180 or DBP >100 Anxiety: Continue Mirtazapine 45 mg HS, Elavil 75 mg HS h/o migraines: Imitrex 100 mg PRN, Tramadol 50 mg BID PRN GERD: Protonix 40 mg daily GI Prophylaxis: Maalox PRN, IV Zofran PRN, Colace and/or Milk of Mag PRN DVT prophylaxis: Heparin 5000 units SQ q12 hrs, NOBLE and SCDs Code Status: LEVEL I, FULL Dispo: From home, lives with - social secretary consulted Level of Care Med/Surg Resuscitation Status FULL RESUSCITATION VTE Prophylaxis VTE Risk Assessment Done? Y/N: Yes Risk Level: Moderate Given or contraindicated: Unfractionated heparin SQ, T.E.D. Stockings, SCD's
[2017-04-24 15:52] LABS: PROTHROMBIN TIME (PATIENT) 10.7 SECONDS (9.0-12.0)
[2017-04-24 16:30] VITALS: BP 154/82; PULSE 97; TEMP 36.9; O2SAT 96; Ht 160 cm; Wt 43.8 kg
[2017-04-24] MEDS: SODIUM CHLORIDE 0.9% 1000ML 1,000 ML IV SCH (17:23)
[2017-04-24] MEDS: MIDODRINE 2.5 MG TAB PO SCH (17:23)
[2017-04-24] MEDS: SUMATRIPTAN SUCC TAB 100 MG TAB PO PRN (18:15)
[2017-04-24] MEDS: METHYLPREDNISOLONE IV 1,000 MG in DEXTROSE 5% 250ML 250 ML IV SCH (18:15)
[2017-04-24 18:53] VITALS: BP 175/97; PULSE 102; TEMP 37.1; O2SAT 97
[2017-04-24] MEDS: PANTOprazole SOD 40 MG TAB PO SCH (20:19)
[2017-04-24] MEDS: FERROUS SULFATE 325 MG TAB PO SCH (20:19)
[2017-04-24] MEDS: GABAPENTIN 800 MG TAB PO SCH (20:19)
[2017-04-24] MEDS: HEPARIN SOD 5000 UNIT/0.5 ML CARP SQ SCH (21:36)
[2017-04-24] MEDS: MIRTAZAPINE TAB 15 MG TAB PO SCH (21:38)
[2017-04-24] MEDS: AMITRIPTYLINE HCL 25 MG TAB PO SCH (21:38)
[2017-04-24 21:44] VITALS: BP 155/90; PULSE 103
[2017-04-24 23:43] VITALS: BP 151/87; PULSE 99; TEMP 36.4; O2SAT 96
[2017-04-25] MEDS: SODIUM CHLORIDE 0.9% 1000ML 1,000 ML IV SCH ×2 (02:14→14:55)
[2017-04-25 06:05] LABS: HEMATOCRIT 39.3 % (37-47); MEAN CORPUSCULAR HEMOGLOBIN 30.1 pg (25-34); MEAN CORPUSCULAR HGB CONC 33.1 g/dl (32-36); MEAN PLATELET VOLUME 10.2 fL (7.4-10.4); PLATELET COUNT 217 K/uL (130-400); RED BLOOD COUNT 4.32 M/uL (4.2-5.4)
[2017-04-25 06:22] LABS: BLOOD UREA NITROGEN 7 mg/dl (7-18); BUN/CREATININE RATIO 25.9 (10-20); CALCIUM 7.5 mg/dl (8.5-10.1); CARBON DIOXIDE 29 mmol/L (21-32); CHLORIDE 111 mmol/L (98-107); CREATININE 0.26 mg/dl (0.60-1.20); GLUCOSE 161 mg/dl (70-99); MAGNESIUM 1.8 mg/dl (1.8-2.4); POTASSIUM 3.3 mmol/L (3.5-5.1); SODIUM 147 mmol/L (136-145)
[2017-04-25 07:28] VITALS: BP_SYST 141; BP_SYST 158; BP_DIAS 89; BP_DIAS 92; PULSE 109; TEMP 36.2; O2SAT 98
[2017-04-25] MEDS ORDERED: POTASSIUM CHLORIDE 10 MEQ TABCR PO STA (07:49)
[2017-04-25] MEDS: MAGNESIUM OXIDE 400 MG TAB PO SCH (08:01)
[2017-04-25] MEDS: PANTOprazole SOD 40 MG TAB PO SCH ×2 (08:01→20:36)
[2017-04-25] MEDS: FERROUS SULFATE 325 MG TAB PO SCH ×2 (08:01→20:37)
[2017-04-25] MEDS: GABAPENTIN 800 MG TAB PO SCH ×3 (08:01→20:37)
[2017-04-25] MEDS: MIDODRINE 2.5 MG TAB PO SCH ×3 (08:01→16:37)
[2017-04-25] MEDS: CHOLECALCIFEROL 1000 INTER.UNIT TAB PO SCH (08:02)
[2017-04-25] MEDS: METHYLCELLULOSE POWDER 454 GM JAR PO SCH (08:02)
[2017-04-25] MEDS: HEPARIN SOD 5000 UNIT/0.5 ML CARP SQ SCH ×2 (08:10→20:38)
--- NOTE | 2017-04-25 09:46 | Neurology Consultation ---
Neurology Consultation Date of Consultation: Apr 25, 2017. Attending Physician: Prince Harding D.O. Primary Care Physician: George Montoya M.D. Reason for Consultation: Multiple sclerosis History of Present Illness Source: patient, clinic records, hospital records The patient is a 71-year-old female with a chief complaint of persistent moderate generalized weakness with inability to stand, beginning yesterday. Past medical history notable for multiple sclerosis and a recent urinary tract infection. This patient was diagnosed with MS nearly 20 years ago. She follows with Dr. Gerardo and is prescribed Tysabri. She has chronic gait dysfunction and complains of weakness in both legs, greater on the left. Her medical history is also notable for episodic migraine. Past Medical/Surgical History Medical Problems: (1) Altered mental status Status: Acute (2) Altered mental status Status: Acute (3) Cystitis Status: Acute (4) Exacerbation of multiple sclerosis Status: Acute (5) Fall at home Status: Acute (6) Femur fracture Status: Acute (7) Fever Status: Acute (8) Fracture of right hip Status: Acute (9) Headache Status: Acute (10) Hypokalemia Status: Acute (11) Intractable pain Status: Acute (12) Intractable vomiting Status: Acute (13) Migraine Status: Acute (14) Migraine Status: Acute (15) Migraine Status: Acute (16) Migraine Status: Acute (17) Migraine Status: Acute (18) Migraine Status: Acute (19) Migraine Status: Acute (20) Migraine Status: Acute (21) Migraine Status: Acute (22) Migraine Status: Acute (23) Migraine headache Status: Acute (24) Pelvis fracture, right Status: Acute (25) Pneumonia Status: Acute (26) Pressure ulcer of right buttock Status: Acute (27) Status post closed fracture of right hip Status: Acute (28) UTI (urinary tract infection) Status: Acute (29) Weakness Status: Acute Family History There is a family history of diabetes mellitus Social History Smoking Status: Former smoker Drug Use: none Marital Status: Housing Status: lives with family Occupation Status: retired Allergies Coded Allergies: Morphine (Verified Adverse Reaction, Intermediate, " MAKES ME MEAN" - CONFUSION, 04/06/17) Current Inpatient Medications Current Inpatient Medications Medications (Trade) Dose Ordered Sig/Melvin Route Start Time Stop Time Status Last Admin Dose Admin Acetaminophen (Tylenol Tab) 325 mg DAILY PRN PO 04/24/17 13:30 05/24/17 13:29 Amitriptyline HCl (Elavil Tab) 75 mg HS PO 04/24/17 21:00 05/24/17 20:59 04/24/17 21:38 75 MG Cholecalciferol (Vitamin D Tab) 4,000 inter.unit DAILY PO 04/25/17 08:00 05/25/17 08:59 04/25/17 08:02 4,000 INTER.UNIT Gabapentin (Neurontin Tab) 800 mg TID PO 04/24/17 20:00 05/24/17 20:59 04/25/17 08:01 800 MG Magnesium Oxide (Mag-Ox Tab) 400 mg QAM PO 04/25/17 08:00 05/25/17 08:59 04/25/17 08:01 400 MG Pantoprazole Sodium (Protonix Tab) 40 mg BID PO 04/24/17 20:00 05/24/17 20:59 04/25/17 08:01 40 MG Sumatriptan Succinate (Imitrex Tab) 100 mg DAILY PRN PO 04/24/17 13:30 05/24/17 13:29 04/24/17 18:15 100 MG Tramadol HCl (Ultram Tab) 50 mg BID PRN PO 04/24/17 13:30 05/24/17 13:29 Ferrous Sulfate (Feosol Tab) 325 mg BID PO 04/24/17 20:00 05/24/17 20:59 04/25/17 08:01 325 MG Methylcellulose (Citrucel Powder) 19 gm DAILY PO 04/25/17 08:00 05/25/17 08:59 04/25/17 08:02 19 GM Midodrine (Proamatine Tab) 5 mg TIDM PO 04/24/17 17:00 05/24/17 17:59 04/25/17 08:01 5 MG Mirtazapine (Remeron Tab) 45 mg HS PO 04/24/17 21:00 05/24/17 20:59 04/24/17 21:38 45 MG Al Hydrox/Mg Hydrox/Simethicone (Maalox Max Susp) 15 ml Q4H PRN PO 04/24/17 13:30 05/24/17 13:29 Magnesium Hydroxide (Milk Of Magnesia Susp) 30 ml Q6H PRN PO 04/24/17 13:30 05/24/17 13:29 Polyethylene (Miralax Powder Packet) 17 gm DAILY PRN PO 04/24/17 13:30 05/24/17 13:29 Ondansetron HCl (Zofran Inj) 4 mg Q6H PRN IV 04/24/17 13:30 05/24/17 13:29 Heparin Sodium (Porcine) (Heparin Sq 5000 Unit/0.5ml) 5,000 unit Q12 SQ 04/24/17 21:00 05/24/17 20:59 04/25/17 08:10 5,000 UNIT Sodium Chloride 1,000 ml @ 80 mls/hr [id number] IV 04/24/17 13:30 05/24/17 13:29 04/25/17 02:14 80 MLS/HR Ceftriaxone Sodium 1 gm/ Dextrose 50 ml @ 100 mls/hr Q24H IV 04/25/17 10:00 04/29/17 09:59 Hydralazine HCl (HydrALAZINE INJ) 10 mg Q6H PRN IV. 04/24/17 13:30 05/24/17 13:29 Methylprednisolone Sodium Succinate 1000 mg/Dextrose 266 ml @ 250 mls/hr DAILY@1800 IV 04/24/17 18:00 05/24/17 17:59 04/24/17 18:15 250 MLS/HR Heparin Sodium (Porcine) (Heparin 100 Unit/ml 5ml Flush) 5 ml PRN PRN IV 04/25/17 07:00 05/25/17 06:59 Review of Systems The patient complains of mild headache and difficulty concentrating which is a chronic issue. She denies vision loss, vertigo, or symptoms of sciatica at this time. A full 10 point review of systems was obtained from this patient with pertinent positives and negative described in the history of present illness and otherwise listed above. All remaining systems are negative. Physical Exam Vital Signs (Past 24 Hrs): Date Time Temp Pulse Resp B/P (MAP) Pulse Ox O2 Delivery O2 Flow Rate FiO2 04/25/17 07:28 36.2 109 18 158/92 (114) 98 Room Air 141/89 (106) 04/25/17 00:00 Room Air 04/24/17 23:43 36.4 99 16 151/87 (108) 96 Room Air 04/24/17 21:44 103 155/90 (111) 04/24/17 18:53 37.1 102 20 175/97 (123) 97 Room Air 04/24/17 16:30 36.9 97 20 154/82 96 Room Air 04/24/17 14:09 101 18 163/93 96 Room Air 04/24/17 12:30 94 16 143/87 93 Room Air 04/24/17 12:17 96 04/24/17 10:47 36.8 99 20 172/108 97 Room Air The patient is a well-developed elderly female, no acute distress. Recent and remote memory intact. Attention and concentration normal. Normal spontaneous speech pattern. Normal age appropriate fund of knowledge. Visual marcos full to confrontation. Pupils equal round reactive to light and accommodation. Eye movements intact. Facial sensation intact. There is normal facial symmetry and strength. Hearing intact. Palate elevates to midline. Tongue protrudes to midline. Shoulder shrug strength intact. Sensation is grossly intact to vibration, light touch, temperature and proprioception for all 4 limbs. Deep tendon reflexes are normal for the upper extremities, increased for both lower extremities, 3+. Plantar responses upgoing bilaterally. There is no dysmetria with finger to nose bilaterally. There is dysmetria with [id number] on the left. Heel to park on the right normal. Ophthalmoscopic examination reveals normal-appearing optic disks and posterior segments, no papilledema or hemorrhages. Carotid pulses normal bilaterally, no bruits. Gait and station not tested due to safety concerns. There is normal muscle strength for both upper limbs. Normal muscle strength for the right lower limb. Left lower extremity strength 3-4/5 proximally and distally. Tone normal throughout. No atrophy. No abnormal movements. Laboratory Results Past 24 Hours: 04/25/17 05:20 04/25/17 05:20 Test 04/24/17 10:35 04/25/17 05:20 Urine Color YELLOW Urine Appearance CLOUDY (CLEAR) Urine pH 7.5 (4.5-7.5) Urine Specific [place] 1.016 (1.000-1.030) Urine Protein NEG (NEG) Urine Glucose (UA) NEG (NEG) Urine Ketones NEG (NEG) Urine Occult Blood TRACE (NEG) Urine Nitrite POS (NEG) Urine Bilirubin NEG (NEG) Urine Urobilinogen NEG (NEG) Urine Leukocyte Esterase LARGE (NEG) Urine WBC (Auto) >30 /hpf (0-5) Urine RBC (Auto) 0-4 /hpf (0-4) Urine Hyaline Casts (Auto) 0 /lpf (0-5) Urine Epithelial Cells (Auto) 10-20 /lpf (0-5) Urine Bacteria (Auto) 1+ (NEG) Red Blood Count 4.32 M/uL (4.2-5.4) Mean Corpuscular Volume 91.0 fL (80-100) Mean Corpuscular Hemoglobin 30.1 pg (25-34) Mean Corpuscular Hemoglobin Concent 33.1 g/dl (32-36) RDW Standard Deviation 51.1 fL (36.4-46.3) RDW Coefficient of Variation 15.1 % (11.5-14.5) Mean Platelet Volume 10.2 fL (7.4-10.4) Anion Gap 7.0 mmol/L (3-11) Est Creatinine Clear Calc Drug Dose 146.7 ml/min Estimated GFR () 141.9 Estimated GFR (Non- 122.5 BUN/Creatinine Ratio 25.9 (10-20) Calcium Level 7.5 mg/dl (8.5-10.1) Magnesium Level 1.8 mg/dl (1.8-2.4) Troponin I < 0.015 ng/ml (0-0.045) Impression 71-year-old female who has had multiple sclerosis for nearly 20 years presenting with generalized weakness and ambulatory dysfunction in the context of a recent urinary tract infection. She has chronic left lower extremity weakness and gait dysfunction likely related to her multiple sclerosis. I suspect that her current symptoms are more consistent with a minor flareup rather than a true MS exacerbation. History of migraines, chronic issue but stable. Plan MRI of the brain and thoracic spine, both studies with and without contrast. Continue Solu-Medrol. Our typical protocol is 1 g per day for 3 days followed by a Medrol Dosepak taper. I expect her migraines to improve with corticosteroids as well although she may continue with Imitrex as appropriate. Outpatient follow-up with Dr. Gerardo.
[2017-04-25] MEDS: CEFTRIAXONE SOD INJ 1 GM in DEXTROSE 5% ADD-VANTAGE 50ML 50 ML IV SCH (10:10)
--- NOTE | 2017-04-25 13:40 | Progress Note ---
Subjective Date of Service: Apr 25, 2017. Subjective Pt evaluation today including: conversation w/ patient, physical exam, chart review, lab review, review of studies, review of inpatient medication list Pt resting comfortably in bed States bilateral leg weakness Difficulty in getting up and ambulating No fevers or chills No acute event overnight Problem List Medical Problems: (1) Altered mental status Status: Acute (2) Altered mental status Status: Acute (3) Cystitis Status: Acute (4) Exacerbation of multiple sclerosis Status: Acute (5) Fall at home Status: Acute (6) Femur fracture Status: Acute (7) Fever Status: Acute (8) Fracture of right hip Status: Acute (9) Headache Status: Acute (10) Hypokalemia Status: Acute (11) Intractable pain Status: Acute (12) Intractable vomiting Status: Acute (13) Migraine Status: Acute (14) Migraine Status: Acute (15) Migraine Status: Acute (16) Migraine Status: Acute (17) Migraine Status: Acute (18) Migraine Status: Acute (19) Migraine Status: Acute (20) Migraine Status: Acute (21) Migraine Status: Acute (22) Migraine Status: Acute (23) Migraine headache Status: Acute (24) Pelvis fracture, right Status: Acute (25) Pneumonia Status: Acute (26) Pressure ulcer of right buttock Status: Acute (27) Status post closed fracture of right hip Status: Acute (28) UTI (urinary tract infection) Status: Acute (29) Weakness Status: Acute Review of Systems Constitutional: + weakness, No fever, No chills, No sweats, No weight loss, No fatigue ENT: No hearing loss, No unusual epistaxis, No nasal symptoms, No sore throat Respiratory: No cough, No sputum, No wheezing, No shortness of breath Cardiac: No chest pain, No orthopnea, No PND, No edema Abdomen: No pain, No nausea, No vomiting, No diarrhea, No constipation Musculoskeletal: No joint pain, No muscle pain, No swelling, No calf pain Female : No dysuria, No urinary frequency, No hematuria, No incontinence Neurologic: + weakness, No memory loss, No paralysis Psychiatric: No depression symptoms, No anhedonism, No anxiety, No insomnia Endo: No fatigue, No excessive thirst Skin: No rash, No itch Objective Vital Signs Date Time Temp Pulse Resp B/P (MAP) Pulse Ox O2 Delivery O2 Flow Rate FiO2 04/25/17 07:28 36.2 109 18 158/92 (114) 98 Room Air 141/89 (106) 04/25/17 00:00 Room Air 04/24/17 23:43 36.4 99 16 151/87 (108) 96 Room Air 04/24/17 21:44 103 155/90 (111) 04/24/17 18:53 37.1 102 20 175/97 (123) 97 Room Air 04/24/17 16:30 36.9 97 20 154/82 96 Room Air 04/24/17 14:09 101 18 163/93 96 Room Air Physical Exam General Appearance: WD/WN, no apparent distress Eyes: normal inspection, PERRL, EOMI, sclerae normal Neck: supple, no adenopathy, thyroid normal, no JVD Respiratory/Chest: chest non-tender, lungs clear, normal breath sounds, no respiratory distress, no accessory muscle use Cardiovascular: regular rate, rhythm, no edema, no gallop, no JVD Abdomen: normal bowel sounds, non tender, soft, no organomegaly Extremities: normal range of motion, non-tender, normal inspection, no pedal edema Neurologic/Psychiatric: alert, normal mood/affect, oriented x 3, + motor weakness (1/5 muscle strength in bilateral legs) Laboratory Results Last 24 Hours Test 04/24/17 22:30 04/25/17 05:20 04/25/17 11:35 Troponin I 0.038 ng/ml < 0.015 ng/ml White Blood Count 3.40 K/uL Red Blood Count 4.32 M/uL Hemoglobin 13.0 g/dL Hematocrit 39.3 % Mean Corpuscular Volume 91.0 fL Mean Corpuscular Hemoglobin 30.1 pg Mean Corpuscular Hemoglobin Concent 33.1 g/dl RDW Standard Deviation 51.1 fL RDW Coefficient of Variation 15.1 % Platelet Count 217 K/uL Mean Platelet Volume 10.2 fL Sodium Level 147 mmol/L Potassium Level 3.3 mmol/L Chloride Level 111 mmol/L Carbon Dioxide Level 29 mmol/L Anion Gap 7.0 mmol/L Blood Urea Nitrogen 7 mg/dl Creatinine 0.26 mg/dl Est Creatinine Clear Calc Drug Dose 146.7 ml/min Estimated GFR () 141.9 Estimated GFR (Non- 122.5 BUN/Creatinine Ratio 25.9 Random Glucose 161 mg/dl Calcium Level 7.5 mg/dl Magnesium Level 1.8 mg/dl Hepatitis C Antibody Screen NEG Assessment and Plan Patient is a pleasant 71 y/o female who presents with generalized weakness 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 Generalized weakness likely secondary to MS flare Admitted to med/surg States slight improvement in bilateral lower ext muscle strength Cont NSS and IV solumedrol 1000 mg daily Neurology consulted and agree with steroids and MRI brain and thoracic spine Continue Tysabri injections monthly and Gabapentin 800 mg TID PT/OT consulted UTI No symptoms at this time Awaiting culture growth Cont bactrim DS Chronic anemia STABLE with Hg 13 Asymptomatic Continue Ferrous sulfate 325 mg BID Hypomagnesium: Continue Mag-Ox supplement 400 mg daily Mg level 1.8 Orthostatic hypotension/HTN More hypertensive at this time Cont midodrine 5 mg TID, if worsening HTN will hold Cont hydralazine 10 mg IV PRN for SBP >180 or DBP >100 Anxiety Stable Continue Mirtazapine 45 mg HS, Elavil 75 mg HS H/o migraines No exacerbations Imitrex 100 mg PRN, Tramadol 50 mg BID PRN GERD Stable Protonix 40 mg daily GI Prophylaxis Maalox PRN, IV Zofran PRN, Colace and/or Milk of Mag PRN DVT prophylaxis Heparin 5000 units SQ q12 hrs, NOBLE and SCDs Code Status: LEVEL I, FULL
[2017-04-25 13:56] VITALS: BP 118/73; PULSE 114
[2017-04-25 15:04] VITALS: BP 107/69; PULSE 82; TEMP 36.4; O2SAT 99
[2017-04-25] MEDS: SUMATRIPTAN SUCC TAB 100 MG TAB PO PRN (15:15)
[2017-04-25 16:36] VITALS: BP 149/84; PULSE 101
[2017-04-25] MEDS ORDERED: NURSING DECISION MEDICATION ORDER SCH (16:45)
[2017-04-25] MEDS ORDERED: LORAZEPAM INJ 1 MG in SYRINGE 0.5 ML IV SCH (17:00)
[2017-04-25] MEDS: METHYLPREDNISOLONE IV 1,000 MG in DEXTROSE 5% 250ML 250 ML IV SCH (18:25)
[2017-04-25] MEDS: AMITRIPTYLINE HCL 25 MG TAB PO SCH (20:36)
[2017-04-25] MEDS: MIRTAZAPINE TAB 15 MG TAB PO SCH (20:36)
[2017-04-25] MEDS ORDERED: NURSING VERBAL MED ORDER ONE (20:45)
--- NOTE | 2017-04-25 22:42 | DIAGNOSTIC IMAGING REPORT ---
MRI OF THE BRAIN WITHOUT AND WITH IV CONTRAST CLINICAL HISTORY: Multiple sclerosis. Recent leg weakness. COMPARISON STUDY: 11/05/2016 TECHNIQUE: MRI of the brain was performed from the vertex to the skull base utilizing various T1 and T2 weighted sequences. Following the IV administration of 4.5 mL of Gadavist contrast, additional enhanced images were obtained. FINDINGS: Sagittal T1, axial diffusion, proton density and T2 weighted axial, coronal FLAIR, and pre and post axial T1-weighted images were acquired. These were supplemented with post gadolinium coronal T1 weighted images. No intra or extra-axial mass lesions are visualized. Axial diffusion-weighted images reveal no evidence of acute or subacute infarction. There is no evidence of ventricular dilatation. Proton density T2-weighted and FLAIR images reveal moderately extensive foci of increased T2 and FLAIR signal within the white matter, similar to the preceding October 2016 study. There are no abnormal flow voids. There is no evidence of pathologic enhancement. IMPRESSION: 1. No significant change from the preceding study 2. Extensive foci of increased T2 and FLAIR signal within the white matter, consistent with the patient's clinical history of multiple sclerosis. 3. No pathologic enhancement to indicate active plaques. 4. No evidence of acute or subacute infarction Electronically signed by: Rommel Mary M.D. 04/25/2017 10:41 PM Dictated Date/Time: 04/25/2017 10:38 PM
[2017-04-25] MEDS ORDERED: GADAVIST IV PRN (22:45)
--- NOTE | 2017-04-25 22:53 | DIAGNOSTIC IMAGING REPORT ---
MRI THE THORACIC SPINE WITHOUT AND WITH GADOLINIUM CLINICAL HISTORY: Multiple sclerosis. Recent leg weakness. COMPARISON STUDY: July 2010 FINDINGS: Imaging was performed in the sagittal and axial planes, before and after the administration of 4.5 cc of intravenous Gadavist. There is moderate artifact secondary to posterior spinal rodding. There are no suspicious areas of marrow replacement. A violation of the cord is limited due to artifact secondary to spinal rodding. No definite spinal cord plaques are visualized. There are no epidural masses. There is no spinal stenosis. There is no pathologic enhancement. IMPRESSION: 1. Examination compromised due to artifact from spinal rodding 2. No spinal cord masses or plaques identified. No epidural masses. No spinal stenosis. Electronically signed by: Rommel Mary M.D. 04/25/2017 10:51 PM Dictated Date/Time: 04/25/2017 10:48 PM
[2017-04-26 00:04] VITALS: BP 132/84; PULSE 94; TEMP 36.6; O2SAT 96
[2017-04-26] MEDS: SODIUM CHLORIDE 0.9% 1000ML 1,000 ML IV SCH ×2 (03:53→15:45)
[2017-04-26 05:57] LABS: HEMATOCRIT 35.9 % (37-47); MEAN CELL VOLUME 92.3 fL (80-100); MEAN CORPUSCULAR HEMOGLOBIN 30.8 pg (25-34); MEAN CORPUSCULAR HGB CONC 33.4 g/dl (32-36); MEAN PLATELET VOLUME 10.6 fL (7.4-10.4); PLATELET COUNT 225 K/uL (130-400); RED BLOOD COUNT 3.89 M/uL (4.2-5.4); WHITE BLOOD COUNT 6.16 K/uL (4.8-10.8)
[2017-04-26 06:40] LABS: BUN/CREATININE RATIO 25.2 (10-20); CALCIUM 7.3 mg/dl (8.5-10.1); CREATININE 0.26 mg/dl (0.60-1.20); POTASSIUM 3.2 mmol/L (3.5-5.1)
[2017-04-26 07:14] VITALS: BP_SYST 152; BP_SYST 160; BP_DIAS 89; BP_DIAS 95; PULSE 108; TEMP 36.5; O2SAT 98
[2017-04-26] MEDS: CHOLECALCIFEROL 1000 INTER.UNIT TAB PO SCH (07:31)
[2017-04-26] MEDS: SUMATRIPTAN SUCC TAB 100 MG TAB PO PRN (07:31)
[2017-04-26] MEDS: MAGNESIUM OXIDE 400 MG TAB PO SCH (07:31)
[2017-04-26] MEDS: MIDODRINE 2.5 MG TAB PO SCH ×2 (07:32→13:15)
[2017-04-26] MEDS: GABAPENTIN 800 MG TAB PO SCH ×3 (07:32→21:26)
[2017-04-26] MEDS: FERROUS SULFATE 325 MG TAB PO SCH ×2 (07:32→21:26)
[2017-04-26] MEDS: PANTOprazole SOD 40 MG TAB PO SCH ×2 (07:32→21:25)
[2017-04-26] MEDS: HEPARIN SOD 5000 UNIT/0.5 ML CARP SQ SCH ×2 (08:37→21:31)
[2017-04-26] MEDS: POTASSIUM CHLORIDE 10 MEQ TABCR PO SCH (08:38)
[2017-04-26] MEDS: METHYLCELLULOSE POWDER 454 GM JAR PO SCH (08:39)
[2017-04-26] MEDS: CEFTRIAXONE SOD INJ 1 GM in DEXTROSE 5% ADD-VANTAGE 50ML 50 ML IV SCH (10:00)
--- NOTE | 2017-04-26 11:47 | Neurology Progress Notes ---
Neurology Progress Note Date of Service Apr 26, 2017. Subjective Follow-up for multiple sclerosis The patient does not have any new complaints today. She reports some improvement in her overall strength with her current treatment The patient has been receiving IV Solu-Medrol for treatment of a mild symptomatic MS flareup in the context of a recent urinary tract infection The requested brain and thoracic MRIs have been completed. I reviewed the images and radiologist's interpretation of these tests. The brain MRI does real evidence of extensive, chronic, modulating disease which is consistent with this patient's history of multiple sclerosis. There is no evidence of significant progression or change compared with her previous study, however. No evidence of abnormal post contrast enhancement. The thoracic spine MRI is a bit limited due to artifact from metallic spinal implants. The visualized portion of the thoracic spinal cord are grossly within normal limits, however. Again, her spinal imaging is very limited. The patient also reports that her migraines have been fairly stable. She did take an Imitrex yesterday which she found effective. Objective Date Time Temp Pulse Resp B/P (MAP) Pulse Ox O2 Delivery O2 Flow Rate FiO2 04/26/17 07:14 36.5 108 20 160/95 (116) 98 Room Air 152/89 (110) 04/26/17 00:04 36.6 94 20 132/84 (100) 96 Room Air 04/26/17 00:01 Room Air 04/25/17 19:45 Room Air 04/25/17 16:36 101 149/84 (105) 04/25/17 16:30 Room Air 04/25/17 15:04 36.4 82 20 107/69 (82) 99 Room Air 04/25/17 14:36 Room Air 04/25/17 13:56 114 118/73 (88) Last 24 Hours Test 04/25/17 14:44 04/26/17 05:35 Troponin I < 0.015 ng/ml White Blood Count 6.16 K/uL Red Blood Count 3.89 M/uL Hemoglobin 12.0 g/dL Hematocrit 35.9 % Mean Corpuscular Volume 92.3 fL Mean Corpuscular Hemoglobin 30.8 pg Mean Corpuscular Hemoglobin Concent 33.4 g/dl RDW Standard Deviation 53.3 fL RDW Coefficient of Variation 15.7 % Platelet Count 225 K/uL Mean Platelet Volume 10.6 fL Sodium Level 149 mmol/L Potassium Level 3.2 mmol/L Chloride Level 114 mmol/L Carbon Dioxide Level 28 mmol/L Anion Gap 7.0 mmol/L Blood Urea Nitrogen 7 mg/dl Creatinine 0.26 mg/dl Est Creatinine Clear Calc Drug Dose 142.2 ml/min Estimated GFR () 141.9 Estimated GFR (Non- 122.5 BUN/Creatinine Ratio 25.2 Random Glucose 146 mg/dl Calcium Level 7.3 mg/dl Exam: The patient is alert and fully oriented. Concentration is mildly impaired. Memory intact. Speech pattern normal. Vocabulary normal. Patient is pleasant and smiles appropriately. Her neurological assessment is unchanged compared with yesterday. Current Inpatient Medications Medications (Trade) Dose Ordered Sig/Melvin Route Start Time Stop Time Status Last Admin Dose Admin Acetaminophen (Tylenol Tab) 325 mg DAILY PRN PO 04/24/17 13:30 05/24/17 13:29 Amitriptyline HCl (Elavil Tab) 75 mg HS PO 04/24/17 21:00 05/24/17 20:59 04/25/17 20:36 75 MG Cholecalciferol (Vitamin D Tab) 4,000 inter.unit DAILY PO 04/25/17 08:00 05/25/17 08:59 04/26/17 07:31 4,000 INTER.UNIT Gabapentin (Neurontin Tab) 800 mg TID PO 04/24/17 20:00 05/24/17 20:59 04/26/17 07:32 800 MG Magnesium Oxide (Mag-Ox Tab) 400 mg QAM PO 04/25/17 08:00 05/25/17 08:59 04/26/17 07:31 400 MG Pantoprazole Sodium (Protonix Tab) 40 mg BID PO 04/24/17 20:00 05/24/17 20:59 04/26/17 07:32 40 MG Sumatriptan Succinate (Imitrex Tab) 100 mg DAILY PRN PO 04/24/17 13:30 05/24/17 13:29 04/26/17 07:31 100 MG Tramadol HCl (Ultram Tab) 50 mg BID PRN PO 04/24/17 13:30 05/24/17 13:29 Ferrous Sulfate (Feosol Tab) 325 mg BID PO 04/24/17 20:00 05/24/17 20:59 04/26/17 07:32 325 MG Methylcellulose (Citrucel Powder) 19 gm DAILY PO 04/25/17 08:00 05/25/17 08:59 04/26/17 08:39 19 GM Midodrine (Proamatine Tab) 5 mg TIDM PO 04/24/17 17:00 05/24/17 17:59 04/26/17 07:32 5 MG Mirtazapine (Remeron Tab) 45 mg HS PO 04/24/17 21:00 05/24/17 20:59 04/25/17 20:36 45 MG Al Hydrox/Mg Hydrox/Simethicone (Maalox Max Susp) 15 ml Q4H PRN PO 04/24/17 13:30 05/24/17 13:29 Magnesium Hydroxide (Milk Of Magnesia Susp) 30 ml Q6H PRN PO 04/24/17 13:30 05/24/17 13:29 Polyethylene (Miralax Powder Packet) 17 gm DAILY PRN PO 04/24/17 13:30 05/24/17 13:29 Ondansetron HCl (Zofran Inj) 4 mg Q6H PRN IV 04/24/17 13:30 05/24/17 13:29 Heparin Sodium (Porcine) (Heparin Sq 5000 Unit/0.5ml) 5,000 unit Q12 SQ 04/24/17 21:00 05/24/17 20:59 04/26/17 08:37 5,000 UNIT Sodium Chloride 1,000 ml @ 80 mls/hr [id number] IV 04/24/17 13:30 05/24/17 13:29 04/26/17 03:53 80 MLS/HR Ceftriaxone Sodium 1 gm/ Dextrose 50 ml @ 100 mls/hr Q24H IV 04/25/17 10:00 04/29/17 09:59 04/25/17 10:10 100 MLS/HR Hydralazine HCl (HydrALAZINE INJ) 10 mg Q6H PRN IV. 04/24/17 13:30 05/24/17 13:29 Methylprednisolone Sodium Succinate 1000 mg/Dextrose 266 ml @ 250 mls/hr DAILY@1800 IV 04/24/17 18:00 05/24/17 17:59 04/25/17 18:25 250 MLS/HR Heparin Sodium (Porcine) (Heparin 100 Unit/ml 5ml Flush) 5 ml PRN PRN IV 04/25/17 07:00 05/25/17 06:59 04/25/17 20:43 5 ML Gadobutrol (Gadavist) 4.5 mmol UD PRN IV 04/25/17 22:45 04/29/17 22:44 Potassium Chloride (Klor-Con M10) 40 meq DAILY PO 04/26/17 08:00 05/26/17 07:59 04/26/17 08:38 40 MEQ Impression Multiple sclerosis with mild symptomatic flareup in the context of a recent urinary tract infection. Patient reports improvement in her general feeling of weakness compared with yesterday. Stable migraines. Plan Continue with IV Solu-Medrol per protocol. Plan for discharge to home tomorrow. Please provide patient with a prescription for a Medrol Dosepak taper. Outpatient follow-up with Dr. Gerardo. Continue with monthly Tysabri injections. May continue with current migraine treatment. No further recommendations at this time
--- NOTE | 2017-04-26 12:47 | Progress Note ---
Subjective Date of Service: Apr 26, 2017. Subjective Pt evaluation today including: conversation w/ patient, physical exam, chart review, lab review, review of studies, review of inpatient medication list Pt resting comfortably in bed States improvement in leg muscle strength Denies any fevers or chills No acute events overnight Problem List Medical Problems: (1) Altered mental status Status: Acute (2) Altered mental status Status: Acute (3) Cystitis Status: Acute (4) Exacerbation of multiple sclerosis Status: Acute (5) Fall at home Status: Acute (6) Femur fracture Status: Acute (7) Fever Status: Acute (8) Fracture of right hip Status: Acute (9) Headache Status: Acute (10) Hypokalemia Status: Acute (11) Intractable pain Status: Acute (12) Intractable vomiting Status: Acute (13) Migraine Status: Acute (14) Migraine Status: Acute (15) Migraine Status: Acute (16) Migraine Status: Acute (17) Migraine Status: Acute (18) Migraine Status: Acute (19) Migraine Status: Acute (20) Migraine Status: Acute (21) Migraine Status: Acute (22) Migraine Status: Acute (23) Migraine headache Status: Acute (24) Pelvis fracture, right Status: Acute (25) Pneumonia Status: Acute (26) Pressure ulcer of right buttock Status: Acute (27) Status post closed fracture of right hip Status: Acute (28) UTI (urinary tract infection) Status: Acute (29) Weakness Status: Acute Review of Systems Constitutional: No fever, No chills Eyes: No worsening of vision, No eye pain Respiratory: No cough, No sputum, No wheezing, No shortness of breath, No dyspnea on exertion Cardiac: No chest pain, No orthopnea, No PND, No edema Abdomen: No pain, No nausea, No vomiting, No diarrhea, No constipation Musculoskeletal: No joint pain, No muscle pain, No swelling Female : No dysuria, No urinary frequency, No hematuria Neurologic: + weakness (3/5 weakness in bilateral lower extremities), No memory loss, No paralysis, No numbness/tingling Psychiatric: No depression symptoms, No anhedonism, No anxiety, No insomnia Objective Vital Signs Date Time Temp Pulse Resp B/P (MAP) Pulse Ox O2 Delivery O2 Flow Rate FiO2 04/26/17 07:14 36.5 108 20 160/95 (116) 98 Room Air 152/89 (110) 04/26/17 00:04 36.6 94 20 132/84 (100) 96 Room Air 04/26/17 00:01 Room Air 04/25/17 19:45 Room Air 04/25/17 16:36 101 149/84 (105) 04/25/17 16:30 Room Air 04/25/17 15:04 36.4 82 20 107/69 (82) 99 Room Air 04/25/17 14:36 Room Air 04/25/17 13:56 114 118/73 (88) Physical Exam General Appearance: WD/WN, no apparent distress Eyes: normal inspection, PERRL, EOMI, sclerae normal Neck: supple, no adenopathy, thyroid normal, no JVD Respiratory/Chest: chest non-tender, lungs clear, normal breath sounds, no respiratory distress Cardiovascular: regular rate, rhythm, no edema, no gallop, no JVD Abdomen: normal bowel sounds, non tender, soft, no organomegaly Extremities: normal range of motion, non-tender, normal inspection, no pedal edema Neurologic/Psychiatric: no motor/sensory deficits, alert, normal mood/affect, oriented x 3 Laboratory Results Last 24 Hours Test 04/25/17 14:44 04/26/17 05:35 Troponin I < 0.015 ng/ml White Blood Count 6.16 K/uL Red Blood Count 3.89 M/uL Hemoglobin 12.0 g/dL Hematocrit 35.9 % Mean Corpuscular Volume 92.3 fL Mean Corpuscular Hemoglobin 30.8 pg Mean Corpuscular Hemoglobin Concent 33.4 g/dl RDW Standard Deviation 53.3 fL RDW Coefficient of Variation 15.7 % Platelet Count 225 K/uL Mean Platelet Volume 10.6 fL Sodium Level 149 mmol/L Potassium Level 3.2 mmol/L Chloride Level 114 mmol/L Carbon Dioxide Level 28 mmol/L Anion Gap 7.0 mmol/L Blood Urea Nitrogen 7 mg/dl Creatinine 0.26 mg/dl Est Creatinine Clear Calc Drug Dose 142.2 ml/min Estimated GFR () 141.9 Estimated GFR (Non- 122.5 BUN/Creatinine Ratio 25.2 Random Glucose 146 mg/dl Calcium Level 7.3 mg/dl Assessment and Plan Patient is a pleasant 71 y/o female who 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 with 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 Admitted to med/surg More improvement in bilateral lower ext muscle strength Cont NSS and IV solumedrol 1000 mg daily day #2 Neurology consulted MRI brain and thoracic spine reviewed and unremarkable Continue Tysabri injections monthly and Gabapentin 800 mg TID PT/OT consulted UTI Asymptomatic, no leukocytosis or fevers Awaiting culture growth Cont bactrim DS Chronic anemia STABLE hg Asymptomatic Continue Ferrous sulfate 325 mg BID Hypomagnesium: Continue Mag-Ox supplement 400 mg daily Orthostatic hypotension/HTN More hypertensive at this time Hold midodrine Cont hydralazine 10 mg IV PRN for SBP >180 or DBP >100 Anxiety Stable Continue Mirtazapine 45 mg HS, Elavil 75 mg HS H/o migraines No exacerbations Imitrex 100 mg PRN, Tramadol 50 mg BID PRN GERD Stable Protonix 40 mg daily GI Prophylaxis Maalox PRN, IV Zofran PRN, Colace and/or Milk of Mag PRN DVT prophylaxis Heparin 5000 units SQ q12 hrs, NOBLE and SCDs Code Status: LEVEL I, FULL
[2017-04-26 13:01] VITALS: O2SAT 98
[2017-04-26 14:49] VITALS: BP 134/82; PULSE 105; TEMP 36.6; O2SAT 98
[2017-04-26] MEDS ORDERED: NURSING VERBAL MED ORDER ONE ×3 (16:00→19:00)
[2017-04-26] MEDS ORDERED: HYDROmorphone INJ 1 MG/ML SYR IV SCH (16:15)
[2017-04-26] MEDS ORDERED: PROMETHAZINE HCL INJ 12.5 MG in SODIUM CHLORIDE 0.9% 50ML 50 ML IV SCH (16:15)
[2017-04-26] MEDS: METHYLPREDNISOLONE IV 1,000 MG in DEXTROSE 5% 250ML 250 ML IV SCH (18:32)
[2017-04-26] MEDS ORDERED: SUMATRIPTAN SUCC TAB 100 MG TAB PO ONE (19:00)
[2017-04-26] MEDS: AMITRIPTYLINE HCL 25 MG TAB PO SCH (21:24)
[2017-04-26] MEDS: MIRTAZAPINE TAB 15 MG TAB PO SCH (21:25)
[2017-04-26 23:01] VITALS: BP 148/85; PULSE 92; TEMP 36.5; O2SAT 96
[2017-04-27 00:01] VITALS: BP 160/93; PULSE 88; TEMP 36.5; O2SAT 95
[2017-04-27] MEDS: SODIUM CHLORIDE 0.9% 1000ML 1,000 ML IV SCH ×2 (04:35→15:26)
[2017-04-27 05:50] LABS: HEMATOCRIT 37.9 % (37-47); MEAN CELL VOLUME 93.1 fL (80-100); MEAN CORPUSCULAR HEMOGLOBIN 31.2 pg (25-34); MEAN CORPUSCULAR HGB CONC 33.5 g/dl (32-36); MEAN PLATELET VOLUME 10.3 fL (7.4-10.4); PLATELET COUNT 233 K/uL (130-400); RED BLOOD COUNT 4.07 M/uL (4.2-5.4); WHITE BLOOD COUNT 5.55 K/uL (4.8-10.8)
[2017-04-27 06:24] LABS: BUN/CREATININE RATIO 21.6 (10-20); CALCIUM 7.1 mg/dl (8.5-10.1); CREATININE 0.28 mg/dl (0.60-1.20); POTASSIUM 2.9 mmol/L (3.5-5.1)
[2017-04-27] MEDS: POTASSIUM CHLR 20 MEQ / WTR 20 MEQ in PREMIXED WATER 100 ML IV SCH ×2 (07:52→09:26)
[2017-04-27] MEDS: METHYLCELLULOSE POWDER 454 GM JAR PO SCH (07:53)
[2017-04-27] MEDS: POTASSIUM CHLORIDE 10 MEQ TABCR PO SCH (07:54)
[2017-04-27] MEDS: CHOLECALCIFEROL 1000 INTER.UNIT TAB PO SCH (07:54)
[2017-04-27] MEDS: GABAPENTIN 800 MG TAB PO SCH ×2 (07:54→15:30)
[2017-04-27] MEDS: MAGNESIUM OXIDE 400 MG TAB PO SCH (07:54)
[2017-04-27] MEDS: FERROUS SULFATE 325 MG TAB PO SCH (07:55)
[2017-04-27] MEDS: PANTOprazole SOD 40 MG TAB PO SCH (07:56)
[2017-04-27 08:13] VITALS: BP 151/86; PULSE 96; TEMP 36.3; O2SAT 98
[2017-04-27] MEDS: SUMATRIPTAN SUCC TAB 100 MG TAB PO PRN (08:23)
[2017-04-27] MEDS: HEPARIN SOD 5000 UNIT/0.5 ML CARP SQ SCH (08:24)
[2017-04-27] MEDS: CEFTRIAXONE SOD INJ 1 GM in DEXTROSE 5% ADD-VANTAGE 50ML 50 ML IV SCH (10:00)
[2017-04-27] MEDS ORDERED: METH4PAK PO (10:34)
--- NOTE | 2017-04-27 10:37 | Discharge Instructions ---
Discharge Instructions Date of Service Apr 27, 2017. Admission Reason for Admission: Generalized Weakness, Uti Discharge Discharge Diagnosis / Problem: Multiple sclerosis exacerbatiob, UTI Discharge Goals Goal(s): Decrease discomfort, Improve function, Increase independence, Improve disease control, Learn about illness, Diagnostic testing, Therapeutic intervention Activity Recommendations Activity Limitations: resume your previous activity Exercise/Sports Limitations: none . Instructions / Follow-Up Instructions / Follow-Up Patient to be discharged home Prescription sent to pharmacy for medrol dose anamaria (steroid taper). Please take as directed If worsening pain, fevers, weakness or numbness please report to ER Will need to follow up with Dr. Gerardo in 1-2 weeks Follow up with Dr Montoya as scheduled Current Hospital Diet Patient's current hospital diet: Regular Diet Discharge Diet Recommended Diet: Regular Diet Pending Studies Studies pending at discharge: yes (urine culture) List of pending studies: urine culture Laboratory Results Lipid Panel Test 02/01/17 04:49 Range/Units Triglycerides Level 88 0-150 mg/dl Cholesterol Level 129 0-200 mg/dl HDL Cholesterol 80 mg/dl Cholesterol/HDL Ratio 1.6 LDL Cholesterol, Calculated 31 mg/dl Medical Emergencies . Who to Call and When: Medical Emergencies: If at any time you feel your situation is an emergency, please call 911 immediately. . Non-Emergent Contact Non-Emergency issues call your: Primary Care Provider Call Non-Emergent contact if: your pain is worsening . . "Provider Documentation" section prepared by Prince Harding. . VTE Core Measure Inpt VTE Proph given/why not?: Unfractionated heparin SQ, T.E.D. Stockings, SCD 's
[2017-04-27 15:01] VITALS: BP 151/86; PULSE 96; TEMP 36.3; O2SAT 98
[2017-04-27 15:12] VITALS: BP 148/86; PULSE 109; TEMP 36.9; O2SAT 98
--- NOTE | 2017-04-27 15:40 | Discharge Summary ---
Discharge Summary Date of Service Apr 27, 2017. Discharge Summary Admission Date: Apr 24, 2017 at 13:39 Discharge Date: Apr 27, 2017 Discharge Disposition: Home Principal Diagnosis: Multiple sclerosis exacerabtion Immunizations: Have You Had Influenza Vaccine: Yes Influenza Vaccine Date: Sep 09, 2013 History of Tetanus Vaccine?: Yes Tetanus Immunization Date: Oct 12, 2002 History of Pneumococcal: UNSURE Pneumococcal Date: Sep 03, 2011 History of Hepatitis B Vaccine: No Consultations: Neurology Medication Reconciliation New Medications: Methylprednisolone (Medrol Dosepak) 4 Mg Ernie 0 PO DAILY, #1 PKT Continued Medications: Acetaminophen Tab (Tylenol) 325 Mg Tab 325 MG PO DAILY PRN for Pain or Fever Alendronate Sodium (Alendronate Sodium) 70 Mg Tab 70 MG PO WK TAKE THIS MEDICATION EVERY MONDAY. Amitriptyline Hcl (Elavil) 75 Mg Tab 75 MG PO HS TAKE THIS MEDICATION 2-3 HOURS BEFORE BEDTIME. Cholecalciferol (Vitamin D3) 1,000 Unit Tab 4000 INTER.UNIT PO DAILY Ferrous Sulfate (Ferrous Sulfate) 325 Mg Tab 325 MG PO BID Gabapentin (Gabapentin) 800 Mg Tab 800 MG PO TID Magnesium Oxide (Mag-Ox) 400 Mg Tab 400 MG PO QAM, TAB Methylcellulose (Laxative) (Citrucel) 500 Mg Tab 2000 MG PO DAILY Midodrine Hcl (Midodrine Hcl) 5 Mg Tab 5 MG PO TID Mirtazapine (Mirtazapine) 45 Mg Tab 45 MG PO HS Natalizumab (Tysabri) Unknown Strength Inj 1 DOSE IV MONTHLY Pantoprazole (Pantoprazole Sodium) 40 Mg Tab 40 MG PO BID Sulfa/Trimethoprim (Bactrim Ds 800MG/160MG) Tab 1 TAB PO BID, #14 TAB Sumatriptan Succinate (Imitrex) 100 Mg Tab 100 MG PO UD PRN for Migraine TAKE 1 TABLET FOR MIGRAINE RELIEF, MAY REPEAT 2 HOURS LATER IF NEEDED. MAXIMUM 200 MG/DAY. Tramadol Hcl (Ultram) 50 Mg Tab 50 MG PO BID PRN for Pain, TAB Discharge Exam Review of Systems: Constitutional: + weakness, No fever, No chills, No sweats, No weight loss Eyes: No worsening of vision, No eye pain, No redness, No discharge ENT: No hearing loss, No unusual epistaxis, No nasal symptoms, No sore throat Respiratory: No cough, No sputum, No wheezing, No shortness of breath, No dyspnea on exertion Cardiovascular: No chest pain, No orthopnea, No PND, No edema Abdomen: No pain, No nausea, No vomiting, No diarrhea Musculoskeletal: No joint pain, No muscle pain, No swelling, No calf pain Genitourinary - Female: No dysuria, No urinary frequency, No urinary urgency , No urinary incontinence Neurologic: + weakness (left and right leg weakness), No memory loss, No paralysis, No numbness/tingling Psychiatric: No depression symptoms, No anhedonism, No anxiety, No insomnia Endocrine: No fatigue, No excessive thirst Physical Exam: General Appearance: WD/WN, no apparent distress Eyes: normal inspection, PERRL, EOMI, sclerae normal Neck: supple, no adenopathy, thyroid normal, no JVD Respiratory/Chest: chest non-tender, lungs clear, normal breath sounds, no respiratory distress Cardiovascular: regular rate, rhythm, no edema, no gallop, no JVD Abdomen / GI: normal bowel sounds, non tender, soft, no organomegaly Extremities: normal inspection, no calf tenderness, normal capillary refill , no pedal edema Neurologic/Psychiatric: alert, normal mood/affect, normal reflexes, oriented x 3, + motor weakness (left and right leg weakness 2/5 ) Skin: normal color, warm/dry, no rash Lymphatic: no adenopathy Hospital Course Patient is a pleasant 71 y/o female who 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 Admitted to med/surg More improvement in bilateral lower ext muscle strength, back to baseline Cont NSS and IV solumedrol 1000 mg daily day # 4 Neurology consulted MRI brain and thoracic spine reviewed and unremarkable Continue tysabri injections monthly and gabapentin 800 mg TID PT/OT consulted Discharge back home with medrol dose ernie and follow up with Dr Gerardo on 04/28/17 UTI Asymptomatic, no leukocytosis or fevers Awaiting culture growth Cont bactrim DS on discharge Chronic anemia STABLE hg Asymptomatic Continue Ferrous sulfate 325 mg BID Hypomagnesium: Continue Mag-Ox supplement 400 mg daily Orthostatic hypotension/HTN More hypertensive at this time, likely steroid induced Hold midodrine Cont hydralazine 10 mg IV PRN for SBP >180 or DBP >100 Anxiety Stable Continue Mirtazapine 45 mg HS, Elavil 75 mg HS H/o migraines No exacerbations Imitrex 100 mg PRN, Tramadol 50 mg BID PRN GERD Stable Protonix 40 mg daily GI Prophylaxis Maalox PRN, IV Zofran PRN, Colace and/or Milk of Mag PRN DVT prophylaxis Heparin 5000 units SQ q12 hrs, NOBLE and SCDs Code Status: LEVEL I FULL Total Time Spent: Greater than 30 minutes This includes examination of the patient, discharge planning, medication reconciliation, and communication with other providers. Discharge Instructions Please refer to the electronic Patient Visit Report (Discharge Instructions) for additional information. Additional Copies To George Montoya M.D.
[2017-04-27] MEDS ORDERED: POTASSIUM CHLORIDE 10 MEQ TABCR PO SCH (20:00)
[2017-05-01] MEDS ORDERED: AMOX500C3 PO (17:29)
[2017-06-02] MEDS ORDERED: MAGN400T6 PO (10:29)
[2017-07-22] MEDS ORDERED: METH500T3 PO (09:58)
[2017-07-22] MEDS ORDERED: PANT40TA2 PO (16:10)
[2017-07-22] MEDS ORDERED: NATA1INJ IV (16:15)
[2017-07-22] MEDS ORDERED: ULT/50 PO (16:39)
[2017-07-22] MEDS ORDERED: AMIT75TA2 PO (17:00)
[2017-07-22] MEDS ORDERED: NRN800 PO (17:00)
[2017-07-22] MEDS ORDERED: FERR1TAB62 PO (18:34)
[2017-08-25] MEDS ORDERED: ULT/50 PO (16:06)
[2017-08-25] MEDS ORDERED: LORA-741 PO (16:06)
[2017-08-25] MEDS ORDERED: PRED10TA PO (16:06)
== END 2017-04-27 16:20 | disposition home or self-care (01) | DRG 59 ==
LOC: EDBD 08:09 → C.EDB 08:10 → C.MS4W 13:39 → ENRESERV 14:04
PROVIDERS: ADMIT Hospitalist; ATTEND Hospitalist
DX: G35 Multiple sclerosis (principal); N39.0 Urinary tract infection, site not specified; R26.9 Unspecified abnormalities of gait and mobility; D64.9 Anemia, unspecified; E83.42 Hypomagnesemia; I95.1 Orthostatic hypotension; I10 Essential (primary) hypertension; T38.0X5A Adverse effect of glucocorticoids and synthetic analogues, initial encounter; K21.9 Gastro-esophageal reflux disease without esophagitis; F41.9 Anxiety disorder, unspecified; G43.909 Migraine, unspecified, not intractable, without status migrainosus; Z90.3 Acquired absence of stomach [part of]; Z87.891 Personal history of nicotine dependence; Z79.899 Other long term (current) drug therapy; Z79.891 Long term (current) use of opiate analgesic; N30.90 Cystitis, unspecified without hematuria; Z87.440 Personal history of urinary (tract) infections; Z87.11 Personal history of peptic ulcer disease; Z87.81 Personal history of (healed) traumatic fracture; Z90.49 Acquired absence of other specified parts of digestive tract; Z88.5 Allergy status to narcotic agent; Z83.3 Family history of diabetes mellitus; Z82.49 Family history of ischemic heart disease and other diseases of the circulatory system; Z83.79 Family history of other diseases of the digestive system

== ENCOUNTER 2017-05-05 16:37 | Emergency (ER) | payer OTHER ==
[~2017-05-05 16:37] MED LIST changes: +AMOX500C3 PO; -CALC-393 PO; +METH4PAK PO; -VERA180C2 PO
[2017-05-05 16:44] VITALS: TEMP 36.8; Ht 160 cm
[2017-05-05] MEDS ORDERED: PROCHLORPERAZINE 5 MG/ML 2 ML VIAL IM ONE (17:30)
[2017-05-05] MEDS ORDERED: HYDROmorphone INJ 2 MG/ML SYR/VIAL IM ONE (17:30)
[2017-05-05] MEDS ORDERED: KETOROLAC TROMETHAMINE 60 MG/2 ML VIAL IM STA (17:30)
[2017-05-05 18:19] VITALS: BP 159/99; PULSE 86; O2SAT 94
--- NOTE | 2017-05-06 00:26 | EMERGENCY ROOM VISIT NOTE ---
ED Visit Note First contact with patient: 16:51 CHIEF COMPLAINT: Migraine headache HISTORY OF PRESENT ILLNESS: Ms. Jasso is a 71 year-old white female who ambulates into the ED accompanied by her complaining of a migraine headache. She reports a gradual onset of a severe migraine headache that started approximately 4 hours ago. The pain is constant and it is slowly increasing in severity. This is not the worst headache of the life and is similar to previous migraines. Currently she describes the headache as a sharp sensation/pain in the left temporoparietal area. She rates the pain a 9/10. The pain is nonradiating. She reports taking Excedrin Migraine without relief of pain. Her pain worsens with exposure light. She has not identified any alleviating factors related to the pain. There is been associated light sensitivity, nausea but no vomiting. She denies fevers, chills, sweats, skin eruptions, skin color changes, recent head trauma, dizziness, lightheadedness, abnormal neurological symptoms, neck pain/stiffness, upper respiratory tract symptoms, sinus congestion, sore throat , chest pain, shortness of breath, extremity weakness/numbness/tingling. REVIEW OF SYSTEMS: All body systems were reviewed with the patient and found to be negative unless noted above otherwise. PAST MEDICAL HISTORY: Hepatitis, peptic ulcer, multiple sclerosis, septicemia, status post partial gastrectomy, hysterectomy and right hip fracture repair. CURRENT MEDICATIONS: Medications Dose Route/Sig Max Daily Dose Days Date Category Dose Instructions Amoxil (Amoxicillin) 500 Mg Cap 500 Mg PO TID 05/05/17 Reported Citrucel (Methylcellulose (Laxative)) 500 Mg Tab 2,000 Mg PO DAILY 04/24/17 Reported Ultram (Tramadol Hcl) 50 Mg Tab 50 Mg PO BID PRN 04/21/17 Reported Vitamin D3 (Cholecalciferol) 1,000 Unit Tab 4,000 Inter.unit PO DAILY 03/05/17 Reported Tylenol (Acetaminophen) 325 Mg Tab 325 Mg PO DAILY PRN 10/16/16 Reported Ferrous Sulfate 325 Mg Tab 325 Mg PO BID 08/01/16 Reported Tysabri (Natalizumab) Unknown Strength Inj 1 Dose IV MONTHLY 06/16/16 Reported Pantoprazole Sodium (Pantoprazole) 40 Mg Tab 40 Mg PO BID 02/11/16 Reported Mag-Ox (Magnesium Oxide) 400 Mg Tab 400 Mg PO QAM 10/01/15 Reported Imitrex (Sumatriptan Succinate) 100 Mg Tab 100 Mg PO UD PRN 11/29/14 Reported TAKE 1 TABLET FOR MIGRAINE RELIEF, MAY REPEAT 2 HOURS LATER IF NEEDED. MAXIMUM 200 MG/DAY. Mirtazapine 45 Mg Tab 45 Mg PO HS 11/29/14 Reported Alendronate Sodium 70 Mg Tab 70 Mg PO WK 11/29/14 Reported TAKE THIS MEDICATION EVERY MONDAY. Midodrine Hcl 5 Mg Tab 5 Mg PO TID 11/29/14 Reported Gabapentin 800 Mg Tab 800 Mg PO TID 11/07/14 Reported Elavil (Amitriptyline Hcl) 75 Mg Tab 75 Mg PO HS 11/07/14 Reported TAKE THIS MEDICATION 2-3 HOURS BEFORE BEDTIME. ALLERGIES TO MEDICATIONS: Morphine. SOCIAL HISTORY: Patient is not currently employed; she lives her and feels safe in her home environment; she denies tobacco use. PHYSICAL EXAM: Vital Signs: Date Time Temp Pulse Resp B/P (MAP) Pulse Ox O2 Delivery O2 Flow Rate FiO2 05/05/17 18:19 86 16 159/99 94 05/05/17 16:44 36.8 102 20 143/77 97 Room Air GENERAL: 71 year-old white female in moderate distress due to pain, afebrile and hemodynamically stable. Found lying in a darkened room NEUROLOGIC: Awake, alert and oriented to person place and time. Answering questions appropriately and following commands. Cranial nerves II-XII grossly intact. Good hand eye coordination. No focal neurologic deficits noted. SKIN: Warm, dry and pink. No rashes, lesions or soft tissue trauma noted. HEENT: Atraumatic and normocephalic. No tenderness or erythema over the frontal or maxillary sinuses. External ears are nontender. Auditory canals are pink and patent. Tympanic membranes shows no erythema or edema. PERRLA, with positive photophobia. EOMI without nystagmus. Sclerae white and conjunctiva pink without drainage. No nasal drainage. No intraoral trauma. No malocclusion. Airway patent. Speech normal. No posterior erythema or edema. BACK: No tenderness over the cervical, thoracic or lumbar spines. Full range of motion of the cervical spine. No nuchal rigidity or meningismus. THORAX: Lungs clear to auscultation and equal bilaterally with no wheezing, crackles, rhonchi or stridor and equal chest wall movements. HEART: Regular rate and rhythm with no murmurs, rubs or gallops. ABDOMEN: Soft and nontender with bowel sounds present in all quadrants; no rigidity, rebound tenderness, organomegaly or guarding. MUSCULOSKELETAL: Full range of motion of all joints without any significant discomfort and the gait is normal. ED COURSE: Patient is assessed with history and physical examination. Patient's medication list was reviewed. Patient received 2 mg of the Dilaudid IM, 60 mg of tramadol IM and 10 mg of Compazine IM. Patient was reassessed. Patient was educated about her condition and instructed on her treatment plan; she verbalized understanding and agreement with this plan. CLINICAL IMPRESSION: Migraine headache. DECISION MAKIN-year-old female who presents for evaluation of headache. She is afebrile, well appearing, and hemodynamically stable. She has no signs of a sinus, dental , or ear infection and no evidence of meningismus. She is neurologically intact. I do not suspect a headache to be secondary to a subarachnoid hemorrhage, meningitis, encephalitis, or intracranial mass lesion. DISPOSITION: Patient was discharged to home in stable condition accompanied by her ; prior to departure she was reassessed and subjectively reported she was feeling better and rated her discomfort 7/10. DISCHARGE INSTRUCTIONS: Rest at home, in a quiet darkened room and allow the medication to work for the pain. Continue to follow up current treatment plan prescribed by your physician for your migraine headaches. See your own doctor in follow-up this week for continued care and treatment. Return to the emergency department as needed or in accordance with her pain management plan.
[2017-05-12] MEDS ORDERED: LEVO750T23 PO (09:46)
[2017-06-02] MEDS ORDERED: MAGN400T6 PO (10:29)
[2017-07-22] MEDS ORDERED: METH500T3 PO (09:58)
[2017-07-22] MEDS ORDERED: PANT40TA2 PO (16:10)
[2017-07-22] MEDS ORDERED: NATA1INJ IV (16:15)
[2017-07-22] MEDS ORDERED: ULT/50 PO (16:39)
[2017-07-22] MEDS ORDERED: NRN800 PO (17:00)
[2017-07-22] MEDS ORDERED: AMIT75TA2 PO (17:00)
[2017-07-22] MEDS ORDERED: FERR1TAB62 PO (18:34)
[2017-08-25] MEDS ORDERED: LORA-741 PO (16:06)
[2017-08-25] MEDS ORDERED: PRED10TA PO (16:06)
[2017-08-25] MEDS ORDERED: ULT/50 PO (16:06)
== END 2017-05-05 18:19 | disposition home or self-care (01) ==
LOC: C.EDB 16:39 → C.EDD 18:19
DX: G43.909 Migraine, unspecified, not intractable, without status migrainosus (principal); G35 Multiple sclerosis; Z87.11 Personal history of peptic ulcer disease; Z90.3 Acquired absence of stomach [part of]; Z90.710 Acquired absence of both cervix and uterus; Z98.890 Other specified postprocedural states; Z79.899 Other long term (current) drug therapy

== ENCOUNTER 2017-05-06 15:27 | Emergency (ER) | payer OTHER ==
[~2017-05-06 15:27] MED LIST changes: -METH4PAK PO; -SULF800T23 PO
[2017-05-06 15:35] VITALS: TEMP 36.7; Ht 160 cm
[2017-05-06] MEDS ORDERED: KETOROLAC TROMETHAMINE 60 MG/2 ML VIAL IM STA (16:10)
[2017-05-06] MEDS ORDERED: HYDROmorphone INJ 2 MG/ML SYR/VIAL IM STA (16:10)
[2017-05-06] MEDS ORDERED: PROCHLORPERAZINE 5 MG/ML 2 ML VIAL IM ONE (16:15)
[2017-05-06 17:14] VITALS: BP 159/81; PULSE 91; O2SAT 95
--- NOTE | 2017-05-06 17:17 | EMERGENCY ROOM VISIT NOTE ---
ED Visit Note First contact with patient: 15:36 I have seen and examined this patient with Roman Kuhn and generally agree with the treatment plan as discussed. Problem List Medical Problems: (1) Benign hypertension Status: Chronic (2) Chronic peptic ulcer Status: Chronic (3) Hysterectomy Status: Resolved (4) Migraine Status: Chronic (5) Multiple sclerosis Status: Chronic (6) Multiple sclerosis Status: Chronic (7) Sepsis Status: Resolved (8) STAPHYLOCOCCAL SEPTICEMIA, NEC Status: Resolved Surgical Problems: (1) S/P partial gastrectomy Status: Chronic Current/Historical Medications Scheduled Alendronate Sodium (Alendronate Sodium), 70 MG PO WK Amitriptyline Hcl (Elavil), 75 MG PO HS Amoxicillin (Amoxil), 500 MG PO TID Cholecalciferol (Vitamin D3), 4,000 INTER.UNIT PO DAILY Ferrous Sulfate (Ferrous Sulfate), 325 MG PO BID Gabapentin (Gabapentin), 800 MG PO TID Magnesium Oxide (Mag-Ox), 400 MG PO QAM Methylcellulose (Laxative) (Citrucel), 2,000 MG PO DAILY Midodrine Hcl (Midodrine Hcl), 5 MG PO TID Mirtazapine (Mirtazapine), 45 MG PO HS Natalizumab (Tysabri), 1 DOSE IV MONTHLY Pantoprazole (Pantoprazole Sodium), 40 MG PO BID Scheduled PRN Acetaminophen Tab (Tylenol), 325 MG PO DAILY PRN for Pain or Fever Sumatriptan Succinate (Imitrex), 100 MG PO UD PRN for Migraine Tramadol Hcl (Ultram), 50 MG PO BID PRN for Pain Allergies Coded Allergies: Morphine (Verified Adverse Reaction, Intermediate, " MAKES ME MEAN" - CONFUSION, 05/05/17) Vital Signs Date Time Temp Pulse Resp B/P (MAP) Pulse Ox O2 Delivery O2 Flow Rate FiO2 05/06/17 17:14 91 16 159/81 95 Room Air 05/06/17 15:35 36.7 110 20 133/81 97 Room Air Medications Administered Medications (Trade) Dose Ordered Sig/Melvin Route Start Time Stop Time Status Last Admin Dose Admin Hydromorphone HCl (Dilaudid Inj) 2 mg NOW STAT IM 05/06/17 16:10 05/06/17 16:13 DC 05/06/17 16:22 2 MG Ketorolac Tromethamine (Toradol Inj) 60 mg NOW STAT IM 05/06/17 16:10 05/06/17 16:13 DC 05/06/17 16:22 60 MG Prochlorperazine Edisylate (Compazine Inj) 10 mg ONE ONCE IM 05/06/17 16:15 05/06/17 16:16 DC 05/06/17 16:22 10 MG Departure Information Impression Primary Impression: Migraine Dispostion Home / Self-Care Referrals George Montoya M.D. (PCP) Forms HOME CARE DOCUMENTATION FORM, IMPORTANT VISIT INFORMATION Patient Instructions [facility] Additional Instructions Rest at home in a quiet darkened room and allow the medication to work for the pain. Continue to follow up current treatment plan prescribed by your provider for your migraine headaches. See your own provider in follow-up this week for continued care and treatment. Return to the ED for worsening/uncontrolled pain, fevers, worsening vomiting, any of the abnormal neurological symptoms we discussed, n accordance with your pain management plan or any new/concerning symptoms.
--- NOTE | 2017-05-07 17:05 | EMERGENCY ROOM VISIT NOTE ---
ED Visit Note First contact with patient: 15:36 CHIEF COMPLAINT: Migraine headache HISTORY OF PRESENT ILLNESS: Ms. Jasso is a 71 year-old white female who ambulates into the ED accompanied by her complaining of a migraine headache. I had seen this Romero yesterday for migraine headache. She received 2 mg of Dilaudid IM and 60 mg of Toradol IM; this is her current treatment plan for her migraine headaches. She reports she had a mild decrease in her headache but then her pain rebounded. She reports this has happened previously but not very recently. She reports worsening pain over the last 4 hours. Her discomfort is not the worst headache of the life and is similar to previous migraines. Currently she describes the headache as a sharp sensation/pain in the left temporoparietal area. She rates the pain a 8/10. The pain is nonradiating. She reports taking Excedrin Migraine without relief of pain. Her pain worsens with exposure light. She has not identified any alleviating factors related to the pain. There is been associated light sensitivity, nausea but no vomiting. She denies fevers, chills, sweats, skin eruptions, skin color changes, recent head trauma, dizziness, lightheadedness, abnormal neurological symptoms, neck pain/stiffness, upper respiratory tract symptoms, sinus congestion, sore throat , chest pain, shortness of breath, extremity weakness/numbness/tingling. REVIEW OF SYSTEMS: All body systems were reviewed with the patient and found to be negative unless noted above otherwise. PAST MEDICAL HISTORY: Hepatitis, peptic ulcer, multiple sclerosis, septicemia, status post partial gastrectomy, hysterectomy and right hip fracture repair. CURRENT MEDICATIONS: Medications Dose Route/Sig Max Daily Dose Days Date Category Dose Instructions Amoxil (Amoxicillin) 500 Mg Cap 500 Mg PO TID 05/05/17 Reported Citrucel (Methylcellulose (Laxative)) 500 Mg Tab 2,000 Mg PO DAILY 04/24/17 Reported Ultram (Tramadol Hcl) 50 Mg Tab 50 Mg PO BID PRN 04/21/17 Reported Vitamin D3 (Cholecalciferol) 1,000 Unit Tab 4,000 Inter.unit PO DAILY 03/05/17 Reported Tylenol (Acetaminophen) 325 Mg Tab 325 Mg PO DAILY PRN 10/16/16 Reported Ferrous Sulfate 325 Mg Tab 325 Mg PO BID 08/01/16 Reported Tysabri (Natalizumab) Unknown Strength Inj 1 Dose IV MONTHLY 06/16/16 Reported Pantoprazole Sodium (Pantoprazole) 40 Mg Tab 40 Mg PO BID 02/11/16 Reported Mag-Ox (Magnesium Oxide) 400 Mg Tab 400 Mg PO QAM 10/01/15 Reported Imitrex (Sumatriptan Succinate) 100 Mg Tab 100 Mg PO UD PRN 11/29/14 Reported TAKE 1 TABLET FOR MIGRAINE RELIEF, MAY REPEAT 2 HOURS LATER IF NEEDED. MAXIMUM 200 MG/DAY. Mirtazapine 45 Mg Tab 45 Mg PO HS 11/29/14 Reported Alendronate Sodium 70 Mg Tab 70 Mg PO WK 11/29/14 Reported TAKE THIS MEDICATION EVERY MONDAY. Midodrine Hcl 5 Mg Tab 5 Mg PO TID 11/29/14 Reported Gabapentin 800 Mg Tab 800 Mg PO TID 11/07/14 Reported Elavil (Amitriptyline Hcl) 75 Mg Tab 75 Mg PO HS 11/07/14 Reported TAKE THIS MEDICATION 2-3 HOURS BEFORE BEDTIME. ALLERGIES TO MEDICATIONS: Morphine. SOCIAL HISTORY: Patient is not currently employed; she lives her and feels safe in her home environment; she denies tobacco use. PHYSICAL EXAM: Vital Signs: Date Time Temp Pulse Resp B/P (MAP) Pulse Ox O2 Delivery O2 Flow Rate FiO2 05/06/17 17:14 91 16 159/81 95 Room Air 05/06/17 15:35 36.7 110 20 133/81 97 Room Air GENERAL: 71 year-old white female in moderate distress due to pain, afebrile and hemodynamically stable. Found lying in a darkened room with sunglasses on. NEUROLOGIC: Awake, alert and oriented to person place and time. Answering questions appropriately and following commands. Cranial nerves II-XII grossly intact. Good hand eye coordination. No focal neurologic deficits noted. SKIN: Warm, dry and pink. No rashes, lesions or soft tissue trauma noted. HEENT: Atraumatic and normocephalic. No tenderness or erythema over the frontal or maxillary sinuses. External ears are nontender. Auditory canals are pink and patent. Tympanic membranes shows no erythema or edema. PERRLA, with positive photophobia. EOMI without nystagmus. Sclerae white and conjunctiva pink without drainage. No nasal drainage. No intraoral trauma. No malocclusion. Airway patent. Speech normal. No posterior erythema or edema. BACK: No tenderness over the cervical, thoracic or lumbar spines. Full range of motion of the cervical spine. No nuchal rigidity or meningismus. THORAX: Lungs clear to auscultation and equal bilaterally with no wheezing, crackles, rhonchi or stridor and equal chest wall movements. HEART: Regular rate and rhythm with no murmurs, rubs or gallops. ABDOMEN: Soft and nontender with bowel sounds present in all quadrants; no rigidity, rebound tenderness, organomegaly or guarding. MUSCULOSKELETAL: Full range of motion of all joints without any significant discomfort and the gait is normal. ED COURSE: Patient is assessed with history and physical examination. Patient's medication list was reviewed. Patient received 2 mg of the Dilaudid IM, 60 mg of tramadol IM and 10 mg of Compazine IM. Patient was reassessed. Patient's case was reviewed with Dr. Liu; he independently assessed the patient we agreed on diagnostic approach, treatment, disposition and plan. Patient was educated about her condition and instructed on her treatment plan; she verbalized understanding and agreement with this plan. CLINICAL IMPRESSION: Migraine headache. DECISION MAKIN-year-old female who presents for evaluation of headache. She is afebrile, well appearing, and hemodynamically stable. She has no signs of a sinus, dental , or ear infection and no evidence of meningismus. She is neurologically intact. I do not suspect a headache to be secondary to a subarachnoid hemorrhage, meningitis, encephalitis, or intracranial mass lesion. DISPOSITION: Patient was discharged to home in stable condition accompanied by her ; prior to departure she was reassessed and subjectively reported she was feeling better and rated her discomfort 6/10. DISCHARGE INSTRUCTIONS: Rest at home, in a quiet darkened room and allow the medication to work for the pain. Continue to follow up current treatment plan prescribed by your physician for your migraine headaches. See your own doctor in follow-up this week for continued care and treatment. Return to the ED for worsening/uncontrolled pain, abnormal neurological symptoms , fevers, in accordance with her treatment plan or any new/concerning symptoms.
[2017-05-12] MEDS ORDERED: LEVO750T23 PO (09:46)
[2017-06-02] MEDS ORDERED: MAGN400T6 PO (10:29)
[2017-07-22] MEDS ORDERED: METH500T3 PO (09:58)
[2017-07-22] MEDS ORDERED: PANT40TA2 PO (16:10)
[2017-07-22] MEDS ORDERED: NATA1INJ IV (16:15)
[2017-07-22] MEDS ORDERED: ULT/50 PO (16:39)
[2017-07-22] MEDS ORDERED: AMIT75TA2 PO (17:00)
[2017-07-22] MEDS ORDERED: NRN800 PO (17:00)
[2017-07-22] MEDS ORDERED: FERR1TAB62 PO (18:34)
[2017-08-25] MEDS ORDERED: LORA-741 PO (16:06)
[2017-08-25] MEDS ORDERED: PRED10TA PO (16:06)
[2017-08-25] MEDS ORDERED: ULT/50 PO (16:06)
== END 2017-05-06 17:32 | disposition home or self-care (01) ==
LOC: C.EDB 15:29 → C.EDC 17:32
DX: G43.909 Migraine, unspecified, not intractable, without status migrainosus (principal); K27.7 Chronic peptic ulcer, site unspecified, without hemorrhage or perforation; G35 Multiple sclerosis; I10 Essential (primary) hypertension; Z90.3 Acquired absence of stomach [part of]; Z90.710 Acquired absence of both cervix and uterus; Z98.890 Other specified postprocedural states; Z79.899 Other long term (current) drug therapy

== ENCOUNTER 2017-05-07 18:15 | Emergency (ER) | payer OTHER ==
[~2017-05-07] VITALS: Ht 160 cm; Wt 45.0 kg
[2017-05-07 18:17] VITALS: TEMP 36.9; Ht 160 cm; Wt 45.0 kg
[2017-05-07] MEDS ORDERED: MAGNESIUM SULFATE 1GM / D5W 1 GM BAG IV STA (18:48)
[2017-05-07] MEDS ORDERED: PROCHLORPERAZINE 5 MG/ML 2 ML VIAL IV STA (18:48)
[2017-05-07] MEDS ORDERED: SODIUM CHLORIDE 0.9% 1000ML 1,000 ML IV STA (18:48)
[2017-05-07] MEDS ORDERED: KETOROLAC TROMETHAMINE 30 MG/ML VIAL IV STA (18:48)
[2017-05-07] MEDS ORDERED: DiphenhydrAMINE HCL 50 MG/ML VIAL IV STA (18:48)
--- NOTE | 2017-05-07 18:53 | EMERGENCY ROOM VISIT NOTE ---
History Report prepared by Fidencio: Sara Summers Under the Supervision of: Dr. Javier Liu M.D. First contact with patient: 18:32 Chief Complaint: HEADACHE Stated Complaint: HEADACHE History of Present Illness The patient is a 71 year old female who presents to the Emergency Room with complaints of a constant headache for the past 3 days. She has a history of migraine headaches and states that this feels like her typical migraine, except that it is more intense and not going away. The patient is experiencing associated nausea and photophobia. She rates her pain as a 10/10 in severity. She was seen in the ED 3 days ago for this headache and states that her pain has not improved. Source of History: patient Onset: 3 days ago Position: head Symptom Intensity: 10/10 Quality: ache Timing: constant Modifying Factors (Worsening): other (light) Associated Symptoms: + nausea Review of Systems See HPI for pertinent positives & negatives. A total of 10 systems reviewed and were otherwise negative. Past Medical & Surgical Medical Problems: (1) Benign hypertension (2) Chronic peptic ulcer (3) Hysterectomy (4) Intertrochanteric fracture of right hip (5) Intertrochanteric fracture of right hip (6) Migraine (7) Multiple sclerosis (8) Multiple sclerosis (9) Multiple sclerosis exacerbation (10) non cardiac chest pain related to gi (11) Sepsis (12) STAPHYLOCOCCAL SEPTICEMIA, NEC (13) UTI (urinary tract infection) Surgical Problems: (1) S/P partial gastrectomy Family History Diabetes mellitus FH: cholecystectomy FHx: heart disease Social History Smoking Status: Former Smoker Alcohol Use: none Drug Use: none Marital Status: Housing Status: lives with family Occupation Status: retired Current/Historical Medications Scheduled Alendronate Sodium (Alendronate Sodium), 70 MG PO WK Amitriptyline Hcl (Elavil), 75 MG PO HS Amoxicillin (Amoxil), 500 MG PO TID Cholecalciferol (Vitamin D3), 4,000 INTER.UNIT PO DAILY Ferrous Sulfate (Ferrous Sulfate), 325 MG PO BID Gabapentin (Gabapentin), 800 MG PO TID Magnesium Oxide (Mag-Ox), 400 MG PO QAM Methylcellulose (Laxative) (Citrucel), 2,000 MG PO DAILY Midodrine Hcl (Midodrine Hcl), 5 MG PO TID Mirtazapine (Mirtazapine), 45 MG PO HS Natalizumab (Tysabri), 1 DOSE IV MONTHLY Pantoprazole (Pantoprazole Sodium), 40 MG PO BID Scheduled PRN Acetaminophen Tab (Tylenol), 325 MG PO DAILY PRN for Pain or Fever Sumatriptan Succinate (Imitrex), 100 MG PO UD PRN for Migraine Tramadol Hcl (Ultram), 50 MG PO BID PRN for Pain Allergies Coded Allergies: Morphine (Verified Adverse Reaction, Intermediate, " MAKES ME MEAN" - CONFUSION, 05/06/17) Physical Exam Vital Signs Date Time Temp Pulse Resp B/P (MAP) Pulse Ox O2 Delivery O2 Flow Rate FiO2 05/07/17 21:15 101 18 154/92 96 Room Air 05/07/17 19:43 104 18 163/100 96 Room Air 05/07/17 18:17 36.9 102 18 123/75 96 Room Air Physical Exam GENERAL: Patient is a cachectic-appearing elderly female. HEAD: Normocephalic atraumatic EYES: Ocular movements intact pupils equal and react to light OROPHARYNX mucous membranes are moist no exudates present no erythema or edema present NECK: Supple no nuchal rigidity, no evidence of meningitis or encephalitis on exam. CHEST: Good equal expansion LUNGS: Clear and equal to auscultation CARDIAC: Normal S1 and S2 ABDOMEN: Soft nontender no guarding BACK: No CVA tenderness EXTREMITIES: No pain upon palpation normal muscle strength in all groups no clubbing cyanosis or edema NEURO: Patient is following commands and answering questions appropriately. Alert and oriented x3 Cranial Nerves 2-12 grossly intact Medical Decision & Procedures ER Provider Diagnostic Interpretation: Radiology results as stated below per my review and radiologist interpretation: HEAD CT NONCONTRAST CT DOSE: 537.48 mGy.cm HISTORY: Pt c/o AMS TECHNIQUE: Multiaxial CT images of the head were performed without the use of intravenous contrast. Comparison: None. Findings: The paranasal sinuses and mastoid air cells are clear. The calvarium and skull base are intact. The ventricles and sulci are within normal limits. There is no mass, hematoma, midline shift, or acute infarct. Impression: No acute intracranial abnormality. Electronically signed by: Geovany De Jesus M.D. 05/07/2017 8:10 PM Dictated Date/Time: 05/07/2017 8:07 PM Laboratory Results 05/07/17 19:14 Red Blood Count 4.29, Mean Corpuscular Volume 94.2, Mean Corpuscular Hemoglobin 31.0, Mean Corpuscular Hemoglobin Concent 32.9, Mean Platelet Volume 9.9, Neutrophils (%) (Auto) 57.5, Lymphocytes (%) (Auto) 32.5, Monocytes (%) (Auto) 6.0, Eosinophils (%) (Auto) 3.4, Basophils (%) (Auto) 0.3, Neutrophils # (Auto) 6.65, Lymphocytes # (Auto) 3.75, Monocytes # (Auto) 0.69, Eosinophils # (Auto) 0.39, Basophils # (Auto) 0.04 05/07/17 19:14 Test 05/07/17 19:14 05/07/17 20:30 White Blood Count 11.55 K/uL (4.8-10.8) Red Blood Count 4.29 M/uL (4.2-5.4) Hemoglobin 13.3 g/dL (12.0-16.0) Hematocrit 40.4 % (37-47) Mean Corpuscular Volume 94.2 fL (80-100) Mean Corpuscular Hemoglobin 31.0 pg (25-34) Mean Corpuscular Hemoglobin Concent 32.9 g/dl (32-36) Platelet Count 298 K/uL (130-400) Mean Platelet Volume 9.9 fL (7.4-10.4) Neutrophils (%) (Auto) 57.5 % Lymphocytes (%) (Auto) 32.5 % Monocytes (%) (Auto) 6.0 % Eosinophils (%) (Auto) 3.4 % Basophils (%) (Auto) 0.3 % Neutrophils # (Auto) 6.65 K/uL (1.4-6.5) Lymphocytes # (Auto) 3.75 K/uL (1.2-3.4) Monocytes # (Auto) 0.69 K/uL (0.11-0.59) Eosinophils # (Auto) 0.39 K/uL (0-0.5) Basophils # (Auto) 0.04 K/uL (0-0.2) RDW Standard Deviation 51.5 fL (36.4-46.3) RDW Coefficient of Variation 15.3 % (11.5-14.5) Immature Granulocyte % (Auto) 0.3 % Immature Granulocyte # (Auto) 0.03 K/uL (0.00-0.02) Nucleated RBC Absolute Count (auto) 0.06 K/uL (0-0) Nucleated Red Blood Cells % 0.5 % Anion Gap 7.0 mmol/L (3-11) Est Creatinine Clear Calc Drug Dose 99.3 ml/min Estimated GFR () 125.3 Estimated GFR (Non- 108.1 BUN/Creatinine Ratio 31.6 (10-20) Calcium Level 8.3 mg/dl (8.5-10.1) Total Bilirubin 0.2 mg/dl (0.2-1) Direct Bilirubin < 0.1 mg/dl (0-0.2) Aspartate Amino Transf (AST/SGOT) 24 U/L (15-37) Alanine Aminotransferase (ALT/SGPT) 67 U/L (12-78) Alkaline Phosphatase 143 U/L (45-117) Total Protein 5.7 gm/dl (6.4-8.2) Albumin 3.0 gm/dl (3.4-5.0) Lipase 54 U/L (73-393) Urine Color YELLOW Urine Appearance CLEAR (CLEAR) Urine pH 7.0 (4.5-7.5) Urine Specific [place] 1.018 (1.000-1.030) Urine Protein NEG (NEG) Urine Glucose (UA) NEG (NEG) Urine Ketones NEG (NEG) Urine Occult Blood NEG (NEG) Urine Nitrite NEG (NEG) Urine Bilirubin NEG (NEG) Urine Urobilinogen NEG (NEG) Urine Leukocyte Esterase SMALL (NEG) Urine WBC (Auto) 5-10 /hpf (0-5) Urine RBC (Auto) 0-4 /hpf (0-4) Urine Hyaline Casts (Auto) 1-5 /lpf (0-5) Urine Epithelial Cells (Auto) 20-30 /lpf (0-5) Urine Bacteria (Auto) NEG (NEG) Labs reviewed by ED physician. Medications Administered Medications (Trade) Dose Ordered Sig/Melvin Route Start Time Stop Time Status Last Admin Dose Admin Magnesium Sulfate (Magnesium Sulfate) 1 gm NOW STAT IV 05/07/17 18:48 05/07/17 18:51 DC 05/07/17 18:48 1 GM Ketorolac Tromethamine (Toradol Inj) 30 mg NOW STAT IV 05/07/17 18:48 05/07/17 18:51 DC 05/07/17 19:19 30 MG Prochlorperazine Edisylate (Compazine Inj) 10 mg NOW STAT IV 05/07/17 18:48 05/07/17 18:51 DC 05/07/17 19:42 10 MG Diphenhydramine HCl (Benadryl Inj) 50 mg NOW STAT IV 05/07/17 18:48 05/07/17 18:52 DC 05/07/17 19:19 50 MG Dexamethasone Sodium Phosphate (Decadron Inj) 10 mg NOW ONCE IV 05/07/17 19:00 05/07/17 19:01 DC 05/07/17 19:18 10 MG Sodium Chloride 1,000 ml @ 999 mls/hr Q1H1M STAT IV 05/07/17 18:48 05/07/17 19:48 DC 05/07/17 19:18 999 MLS/HR Potassium Chloride (Klor-Con Tab) 60 meq NOW STAT PO 05/07/17 19:57 05/07/17 19:58 DC 05/07/17 21:00 60 MEQ Haloperidol Lactate (Haldol Inj) 2.5 mg NOW STAT IV 05/07/17 20:21 05/07/17 20:23 DC 05/07/17 20:59 2.5 MG Ondansetron HCl (Zofran Inj) 4 mg NOW STAT IV 05/07/17 20:21 05/07/17 20:23 DC 05/07/17 20:59 4 MG Acetaminophen (Tylenol Tab) 1,000 mg NOW STAT PO 05/07/17 20:21 05/07/17 20:23 DC 05/07/17 20:59 1,000 MG Heparin Sodium (Porcine) (Heparin 100 Unit/ml 5ml Flush) 5 ml STK-MED ONCE .ROUTE 05/07/17 21:20 05/07/17 21:21 DC 05/07/17 21:20 5 ML ED Course 1832: Past medical records reviewed. The patient was evaluated in room B4B. A complete history and physical examination was performed. 1848: NSS 1000 ml @ 999 mls/hr IV, Benadryl 50 mg IV, Compazine 10 mg IV, Toradol 30 mg IV, Magnesium sulfate 1 gm IV 0: Decadron 10 mg IV 1956: Potassium Chloride 60 meq PO 2017: I reassessed the patient. She is feeling slightly better and rates her current pain as an 8/10 in severity. 2020: Acetaminophen 1000 mg PO, Zofran 4 mg IV, Haldol 2.5 mg IV 2111: I reassessed the patient at this time. She is feeling better and resting comfortably. I discussed the results and treatment plan with the patient. I offered her an LP and she refused. I answered all pertaining questions that she had. She expressed understanding and verbalized agreement. The patient will be discharged home. Medical Decision Differential diagnosis: Etiologies such as migraine headache, meningitis, sinusitis, CO exposure, ICH, SAH, infection, tumor, headache, sinus thrombosis, arterial dissection, as well as others were entertained. Medication Reconciliation: I attest that I have personally reviewed the patient' s current medication list. Blood Pressure Screening: Patient was found to have normal blood pressure on screening and does not require follow up. This is a 71-year-old female who presents emergency department complaining of headache. The patient is on the treatment plan however this is her third visit 3 days for a headache. I am concerned about this and therefore to lengthy discussion with the patient is to this headache. I do feel it is extremely dangerous to give to new giving this patient narcotics. For this reason the patient was given normal saline bolus, Toradol, Compazine, Benadryl, Decadron, magnesium, Haldol, Zofran. Repeat examination revealed improvement patient's symptoms. The patient was sent for CAT scan of her head which did not show any acute abnormality. I lengthy discussion with the patient about her white blood count cell count which is elevated today. I noted the only way to rule out meningitis is to perform along where puncture which I recommended however the patient is adamantly refusing. I recommended that she have one performed if she returns. The patient has demonstrated no significant defect in the decision-making capacity to make choices. The encounter had a good level of communication with language the patient can easily understand. I feel trust was present and conveyed that our action/intentions were the best interest of the patient. The patient was given all relevant information and reiterated the explained risks and benefits. The patient explained the reasoning for refusing treatment clearly. The patient possesses and expresses a set of values and goals, the ability to communicate and understand, and an ability to reason and deliberate. Despite acting emphatically, attentively and with the utmost patient's the patient declined further treatment. I offered options, negotiated, and explored every reasonable choice. I must respect the patient's autonomy and that they feel that their choices are best for them despite the associated risks of leaving without completing the evaluation. The patient was informed about the findings as listed above. All questions were answered and he was pleased with the treatment. Return instructions were outlined and the patient was discharged in stable condition. Impression Primary Impression: Headache Scribe Attestation The scribe's documentation has been prepared under my direction and personally reviewed by me in its entirety. I confirm that the note above accurately reflects all work, treatment, procedures, and medical decision making performed by me. Departure Information Dispostion Home / Self-Care Referrals George Montoya M.D. (PCP) Forms HOME CARE DOCUMENTATION FORM, IMPORTANT VISIT INFORMATION Patient Instructions Headache Pain, Hypertension Vt, [facility] Additional Instructions You were found to have an elevated blood pressure today (>120 sytolic or >90 diastolic). Per medicare guidelines, you need to follow up with this blood pressure screening with your Primary Care Physician (PCP). For a new PCP call [phone]. You have been examined and treated today on an emergency basis only. This is not a substitute for, or an effort to provide, complete comprehensive medical care. It is impossible to recognize and treat all injuries or illnesses in a single emergency department visit. It is therefore important that you follow up closely with Dr Montoya. Call as soon as possible for an appointment. Thank you for your time and consideration. I look forward to speaking with you again soon. Please don't hesitate to call us if you have any questions. Problem Qualifiers Primary Impression: Headache Headache type: unspecified Headache chronicity pattern: unspecified pattern Intractability: not intractable Qualified Codes: R51 - Headache
[2017-05-07] MEDS ORDERED: DEXAMETHASONE SOD INJ 10 MG/ML VIAL IV ONE (19:00)
[2017-05-07 19:39] LABS: BASO % 0.3 %; BASO ABS # 0.04 K/uL (0-0.2); COMPLETE YES; EOS % 3.4 %; HEMATOCRIT 40.4 % (37-47); IG% 0.3 %; LYMPH % 32.5 %; LYMPH ABS # 3.75 K/uL (1.2-3.4); MEAN CELL VOLUME 94.2 fL (80-100); MEAN CORPUSCULAR HGB CONC 32.9 g/dl (32-36); MEAN PLATELET VOLUME 9.9 fL (7.4-10.4); NEUT % 57.5 %; PLATELET COUNT 298 K/uL (130-400); RED BLOOD COUNT 4.29 M/uL (4.2-5.4); WHITE BLOOD COUNT 11.55 K/uL (4.8-10.8)
[2017-05-07 19:55] LABS: ALT/SGPT 67 U/L (12-78); BLOOD UREA NITROGEN 12 mg/dl (7-18); BUN/CREATININE RATIO 31.6 (10-20); CALCIUM 8.3 mg/dl (8.5-10.1); CARBON DIOXIDE 29 mmol/L (21-32); CHLORIDE 105 mmol/L (98-107); CREATININE 0.38 mg/dl (0.60-1.20); GLUCOSE 90 mg/dl (70-99); POTASSIUM 3.4 mmol/L (3.5-5.1); SODIUM 141 mmol/L (136-145)
[2017-05-07] MEDS ORDERED: POTASSIUM CHLORIDE 20 MEQ TABCR PO STA (19:57)
[2017-05-07 19:58] LABS: ALKALINE PHOSPHATASE 143 U/L (45-117); AST/SGOT 24 U/L (15-37)
--- NOTE | 2017-05-07 20:11 | DIAGNOSTIC IMAGING REPORT ---
HEAD CT NONCONTRAST CT DOSE: 537.48 mGy.cm HISTORY: Pt c/o AMS TECHNIQUE: Multiaxial CT images of the head were performed without the use of intravenous contrast. Comparison: None. Findings: The paranasal sinuses and mastoid air cells are clear. The calvarium and skull base are intact. The ventricles and sulci are within normal limits. There is no mass, hematoma, midline shift, or acute infarct. Impression: No acute intracranial abnormality. Electronically signed by: Geovany De eJsus M.D. 05/07/2017 8:10 PM Dictated Date/Time: 05/07/2017 8:07 PM
[2017-05-07] MEDS ORDERED: ACETAMINOPHEN 500 MG TAB PO STA (20:21)
[2017-05-07] MEDS ORDERED: ONDANSETRON INJ 2 MG/ML 2 ML VIAL IV STA (20:21)
[2017-05-07] MEDS ORDERED: HALOPERIDOL LACTATE 5 MG/ML 1 ML VIAL IV STA (20:21)
[2017-05-07 20:55] LABS: URINE APPEARANCE CLEAR (CLEAR); URINE BILIRUBIN NEG (NEG); URINE COLOR YELLOW; URINE EPITHELIAL CELL AUTO 20-30 /lpf (0-5); URINE NITRITE NEG (NEG); URINE SPECIFIC GRAVITY 1.018 (1.000-1.030); UROBILINOGEN NEG (NEG)
[2017-05-07 20:57] LABS: MANUAL MICROSCOPIC REQUIRED? NO; REVIEW REQ? NO
[2017-05-07 21:15] VITALS: BP 154/92; PULSE 101; O2SAT 96
[2017-05-12] MEDS ORDERED: LEVO750T23 PO (09:46)
[2017-06-02] MEDS ORDERED: MAGN400T6 PO (10:29)
[2017-07-22] MEDS ORDERED: METH500T3 PO (09:58)
[2017-07-22] MEDS ORDERED: PANT40TA2 PO (16:10)
[2017-07-22] MEDS ORDERED: NATA1INJ IV (16:15)
[2017-07-22] MEDS ORDERED: ULT/50 PO (16:39)
[2017-07-22] MEDS ORDERED: AMIT75TA2 PO (17:00)
[2017-07-22] MEDS ORDERED: NRN800 PO (17:00)
[2017-07-22] MEDS ORDERED: FERR1TAB62 PO (18:34)
[2017-08-25] MEDS ORDERED: PRED10TA PO (16:06)
[2017-08-25] MEDS ORDERED: ULT/50 PO (16:06)
[2017-08-25] MEDS ORDERED: LORA-741 PO (16:06)
== END 2017-05-07 21:28 | disposition home or self-care (01) ==
LOC: C.EDB 18:15
DX: R51 Headache (principal); I10 Essential (primary) hypertension; Z90.710 Acquired absence of both cervix and uterus; G35 Multiple sclerosis; Z86.19 Personal history of other infectious and parasitic diseases; Z87.440 Personal history of urinary (tract) infections; Z87.891 Personal history of nicotine dependence; Z90.3 Acquired absence of stomach [part of]; Z83.3 Family history of diabetes mellitus; Z79.899 Other long term (current) drug therapy

== ENCOUNTER 2017-05-09 13:01 | Inpatient (IN) | payer OTHER ==
[~2017-05-09] VITALS: Ht 160 cm; Wt 43.0 kg
[2017-05-09] MEDS ORDERED: SODIUM CHLORIDE 0.9% 1000ML 1,000 ML IV STA ×2 (13:12)
[2017-05-09 13:41] LABS: BASO % 0.1 %; BASO ABS # 0.02 K/uL (0-0.2); COMPLETE YES; EOS % 1.8 %; HEMATOCRIT 36.4 % (37-47); IG% 0.3 %; LYMPH % 8.6 %; LYMPH ABS # 1.27 K/uL (1.2-3.4); MEAN CELL VOLUME 96.3 fL (80-100); MEAN CORPUSCULAR HGB CONC 33.2 g/dl (32-36); MEAN PLATELET VOLUME 10.1 fL (7.4-10.4); MONO % 7.9 %; NEUT % 81.3 %; PLATELET COUNT 287 K/uL (130-400); RED BLOOD COUNT 3.78 M/uL (4.2-5.4); WHITE BLOOD COUNT 14.77 K/uL (4.8-10.8)
[2017-05-09 14:01] LABS: PARTIAL THROMBOPLASTIN RATIO 1.9; PROTHROMBIN TIME (PATIENT) 10.3 SECONDS (9.0-12.0)
[2017-05-09 14:02] LABS: ALT/SGPT 39 U/L (12-78); BLOOD UREA NITROGEN 25 mg/dl (7-18); BUN/CREATININE RATIO 32.6 (10-20); CALCIUM 8.5 mg/dl (8.5-10.1); CARBON DIOXIDE 23 mmol/L (21-32); CHLORIDE 110 mmol/L (98-107); CREATININE 0.76 mg/dl (0.60-1.20); GLUCOSE 103 mg/dl (70-99); POTASSIUM 4.2 mmol/L (3.5-5.1); SODIUM 140 mmol/L (136-145)
[2017-05-09 14:09] LABS: ALKALINE PHOSPHATASE 126 U/L (45-117); AST/SGOT 23 U/L (15-37); THYROID STIMULATING HORMONE 0.491 uIu/ml (0.300-4.500)
[2017-05-09 14:21] LABS: URINE APPEARANCE CLEAR (CLEAR); URINE BILIRUBIN NEG (NEG); URINE COLOR DK YELLOW; URINE NITRITE NEG (NEG); URINE SPECIFIC GRAVITY 1.027 (1.000-1.030); UROBILINOGEN NEG (NEG)
[2017-05-09 14:28] LABS: MANUAL MICROSCOPIC REQUIRED? NO; REVIEW REQ? YES
[2017-05-09] MEDS ORDERED: PIPERACILLIN/TAZOBACTAM 4.5 GM/100ML D5W IV STA (14:32)
--- NOTE | 2017-05-09 15:06 | DIAGNOSTIC IMAGING REPORT ---
SINGLE VIEW CHEST CLINICAL HISTORY: Fever. FINDINGS: An AP, portable, supine chest radiograph is compared to study dated 04/24/2017 and correlated with chest CT dated 06/03/2016. The examination is degraded by portable technique and patient rotation. A left subclavian central venous infusion port is unchanged in position. The heart is top normal for projection and there is atherosclerotic calcification of the thoracic ureter. The pulmonary vasculature is noncongested. Chronic interstitial thickening is similar to previous. There is patchy airspace consolidation identified in the left upper lobe. Airspace opacities are also seen at both lung bases. There is a small left pleural effusion. No right-sided pleural effusion or pneumothorax is seen. The skeletal structures are osteopenic. Postoperative change and spinal rods are noted in the thoracic spine. Cholecystectomy clips are seen in the right upper quadrant. IMPRESSION: Patchy airspace consolidation is seen on the left upper lobe and at both lung bases. There is also a small left pleural effusion. The appearance is typical for multifocal pneumonia. Radiographic follow-up to resolution is recommended. Electronically signed by: Jason Santana M.D. 05/09/2017 3:05 PM Dictated Date/Time: 05/09/2017 2:59 PM
[2017-05-09] MEDS ORDERED: LEVAQUIN 750MG / 150ML D5W IV STA (15:42)
[2017-05-09] MEDS ORDERED: ALUMINUM/MAGNESIUM/SIMETH (MAALOX MAX) 30 ML UDC PO PRN (16:45)
[2017-05-09] MEDS ORDERED: ENOXAPARIN 40 MG/0.4 ML SYR SQ SCH (16:45)
[2017-05-09] MEDS ORDERED: MAGNESIUM HYDROXIDE SUSP 30 ML UDC PO PRN (16:45)
[2017-05-09] MEDS ORDERED: ONDANSETRON INJ 2 MG/ML 2 ML VIAL IV PRN (16:45)
--- NOTE | 2017-05-09 17:29 | History and Physical ---
History & Physical Date & Time of Service: May 09, 2017 at 17:03 Chief Complaint: Fever And Disoriented Primary Care Physician: George Montoya M.D. History of Present Illness Source: patient, partner HPI 71 year old female with a PMH of Multiple Sclerosis presented to [facility] with dry cough and chills that started on May 06 2017. The cough started 2-3 days ago. It came on suddenly. She describes it as a dry cough and has not brought up any sputum or any cough. She has had associated chills and she had a fever of 101 this morning. She has been feeling fatigued and having decreased appetite. Her last hospitalization was 2 weeks ago for which she was treated for a urinary tract infection. She sees Dr. Gerardo for her MS and receives once monthly natalizumab injections via port site ROS She denies any chest pain, palpitations, muscle aches, joint pain, rashes, back pain, burning with urination, abdominal pain, nausea, vomiting, diarrhea, constipation Past Medical/Surgical History Medical Problems: (1) Benign hypertension Status: Chronic (2) Chronic peptic ulcer Status: Chronic (3) Hysterectomy Status: Resolved (4) Migraine Status: Chronic (5) Multiple sclerosis Status: Chronic (6) Multiple sclerosis Status: Chronic (7) Sepsis Status: Resolved (8) STAPHYLOCOCCAL SEPTICEMIA, NEC Status: Resolved Surgical Problems: (1) S/P partial gastrectomy Status: Chronic Family History Diabetes mellitus FH: cholecystectomy FHx: heart disease Social History Smoking Status: Former Smoker Drug Use: none Marital Status: Housing status: lives with family Occupational Status: retired Immunizations History of Influenza Vaccine: Yes Influenza Vaccine Date: Sep 09, 2013 History of Tetanus Vaccine?: Yes Tetanus Immunization Date: Oct 12, 2002 History of Pneumococcal: UNSURE Pneumococcal Date: Sep 03, 2011 History of Hepatitis B Vaccine: No 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 Allergies Coded Allergies: Morphine (Verified Adverse Reaction, Intermediate, " MAKES ME MEAN" - CONFUSION, 05/09/17) Home Medications Scheduled Alendronate Sodium (Alendronate Sodium), 70 MG PO WK Amitriptyline Hcl (Elavil), 75 MG PO HS Cholecalciferol (Vitamin D3), 4,000 INTER.UNIT PO DAILY Ferrous Sulfate (Ferrous Sulfate), 325 MG PO BID Gabapentin (Gabapentin), 800 MG PO TID Magnesium Oxide (Mag-Ox), 400 MG PO QAM Methylcellulose (Laxative) (Citrucel), 2,000 MG PO DAILY Midodrine Hcl (Midodrine Hcl), 5 MG PO TID Mirtazapine (Mirtazapine), 45 MG PO HS Natalizumab (Tysabri), 1 DOSE IV MONTHLY Pantoprazole (Pantoprazole Sodium), 40 MG PO BID Scheduled PRN Acetaminophen Tab (Tylenol), 325 MG PO DAILY PRN for Pain or Fever Sumatriptan Succinate (Imitrex), 100 MG PO UD PRN for Migraine Tramadol Hcl (Ultram), 50 MG PO BID PRN for Pain Review of Systems Please see HPI for ROS Physical Exam Vital Signs Date Time Temp Pulse Resp B/P (MAP) Pulse Ox O2 Delivery O2 Flow Rate FiO2 05/09/17 16:12 129/79 93 Room Air 05/09/17 16:01 104 18 92 05/09/17 15:46 105 18 05/09/17 15:31 104 18 05/09/17 15:16 107 16 05/09/17 15:01 105 16 05/09/17 14:46 115 20 05/09/17 14:41 111 19 05/09/17 14:36 107 15 05/09/17 14:31 108 19 05/09/17 14:26 108 19 05/09/17 14:26 109 05/09/17 13:37 92 Room Air 05/09/17 13:04 36.6 129 18 82/50 92 Room Air General Appearance: WD/WN, no apparent distress, + thin, + pertinent finding ( patient appeared cold) Head: normocephalic, atraumatic Eyes: PERRL, EOMI ENT: hearing grossly normal, pharynx normal Neck: supple, no JVD, no carotid bruits Respiratory/Chest: chest non-tender, no respiratory distress, no accessory muscle use, + decreased breath sounds (poor air entry bilaterally) Cardiovascular: regular rate, rhythm, no edema, no JVD, no murmur, normal peripheral pulses Abdomen/GI: normal bowel sounds, non tender, soft, no organomegaly Extremities/Musculoskelatal: normal inspection, no calf tenderness, no pedal edema, normal range of motion, non-tender Neurologic/Psych: alert, normal mood/affect, oriented x 3 Skin: normal color, warm/dry, no rash Diagnostics Laboratory Results Results Past 24 Hours Test 05/09/17 13:30 05/09/17 13:33 05/09/17 14:00 Range/Units White Blood Count 14.77 4.8-10.8 K/uL Red Blood Count 3.78 4.2-5.4 M/uL Hemoglobin 12.1 12.0-16.0 g/dL Hematocrit 36.4 37-47 % Mean Corpuscular Volume 96.3 80-100 fL Mean Corpuscular Hemoglobin 32.0 25-34 pg Mean Corpuscular Hemoglobin Concent 33.2 32-36 g/dl Platelet Count 287 130-400 K/uL Mean Platelet Volume 10.1 7.4-10.4 fL Neutrophils (%) (Auto) 81.3 % Lymphocytes (%) (Auto) 8.6 % Monocytes (%) (Auto) 7.9 % Eosinophils (%) (Auto) 1.8 % Basophils (%) (Auto) 0.1 % Neutrophils # (Auto) 12.01 1.4-6.5 K/uL Lymphocytes # (Auto) 1.27 1.2-3.4 K/uL Monocytes # (Auto) 1.17 0.11-0.59 K/uL Eosinophils # (Auto) 0.26 0-0.5 K/uL Basophils # (Auto) 0.02 0-0.2 K/uL RDW Standard Deviation 56.8 36.4-46.3 fL RDW Coefficient of Variation 16.3 11.5-14.5 % Immature Granulocyte % (Auto) 0.3 % Immature Granulocyte # (Auto) 0.04 0.00-0.02 K/uL Nucleated RBC Absolute Count (auto) 0.06 0-0 K/uL Nucleated Red Blood Cells % 0.4 % Prothrombin Time 10.3 9.0-12.0 SECONDS Prothromb Time International Ratio 1.0 0.9-1.1 Activated Partial Thromboplast Time 49.9 21.0-31.0 SECONDS Partial Thromboplastin Ratio 1.9 Sodium Level 140 136-145 mmol/L Potassium Level 4.2 3.5-5.1 mmol/L Chloride Level 110 98-107 mmol/L Carbon Dioxide Level 23 21-32 mmol/L Anion Gap 7.0 3-11 mmol/L Blood Urea Nitrogen 25 7-18 mg/dl Creatinine 0.76 0.60-1.20 mg/dl Est Creatinine Clear Calc Drug Dose 47.4 ml/min Estimated GFR () 92.8 Estimated GFR (Non- 80.0 BUN/Creatinine Ratio 32.6 10-20 Random Glucose 103 70-99 mg/dl Calcium Level 8.5 8.5-10.1 mg/dl Magnesium Level 2.0 1.8-2.4 mg/dl Total Bilirubin 0.3 0.2-1 mg/dl Direct Bilirubin < 0.1 0-0.2 mg/dl Aspartate Amino Transf (AST/SGOT) 23 15-37 U/L Alanine Aminotransferase (ALT/SGPT) 39 12-78 U/L Alkaline Phosphatase 126 45-117 U/L Troponin I < 0.015 0-0.045 ng/ml Total Protein 5.1 6.4-8.2 gm/dl Albumin 2.5 3.4-5.0 gm/dl Lipase 46 73-393 U/L Thyroid Stimulating Hormone (TSH) 0.491 0.300-4.500 uIu/ml Bedside Lactic Acid Venous 1.53 0.90-1.70 mmol/L Urine Color DK YELLOW Urine Appearance CLEAR CLEAR Urine pH 5.0 4.5-7.5 Urine Specific [place] 1.027 1.000-1.030 Urine Protein NEG NEG Urine Glucose (UA) TRACE NEG Urine Ketones NEG NEG Urine Occult Blood NEG NEG Urine Nitrite NEG NEG Urine Bilirubin NEG NEG Urine Urobilinogen NEG NEG Urine Leukocyte Esterase TRACE NEG Urine WBC (Auto) 1-5 0-5 /hpf Urine RBC (Auto) 5-10 0-4 /hpf Urine Hyaline Casts (Auto) 1-5 0-5 /lpf Urine Epithelial Cells (Auto) 10-20 0-5 /lpf Urine Bacteria (Auto) NEG NEG Urine Crystals URIC ACID NONE PRSENT Microbiology Results 05/09/17 Blood Culture, Received Pending 05/09/17 Blood Culture, Received Pending 05/09/17 Urine Culture, Received Pending Diagnostic Radiology IMPRESSION: Patchy airspace consolidation is seen on the left upper lobe and at both lung bases. There is also a small left pleural effusion. The appearance is typical for multifocal pneumonia. Radiographic follow-up to resolution is recommended. Impression Assessment and Plan 71 year old female with PMH of MS here with a 3 day history of cough, fever and chills. Was found to have a multifocal pneumonia on CXR. Imaging shows patchy consolidation of left upper lobe and lung bases. She was recently hospitalized and therefore this would be considered a hospital acquire pneumonia. Since there is possible consolidation in the upper lobe and with patients history of TB exposure (grandfather) there is question as to whether or not this could be TB. We spoke to Dr. Brambila and it was decided not to put patient in respiratory isolation room and no quantiferon gold is needed as previous lung biopsy was adequate for ruling out TB. He suggested that we get high resolution CT of chest. There is also the possibility that since the patient is on a once monthly immunosuppressant we must consider fungal infection if she does not respond to IV antibiotics. Hospital Acquire Pneumonia - CXR showed multifocal patchy consolidation in left upper and lower lobes - WCC 14 in the ED, repeat - Blood cultures pending - IV Zosyn and IV levaquin - IV NSS 125 mls/hr - High resolution CT of chest - Follow up with pulmonology as outpatient MS - Amitryptiline, gabapentin and Natalizumab (IV once monthly), has port site - Follows with Dr. Gerardo Hypotension - continue midodrine GERD - hx of peptic ulcer with partial gastrectomy - continue pantoprazole Migraine - imitrex and tramadol Depression - mirtazapine Osteoporosis - Alendronate Diet - regular diet DVT prophylaxis - lovenox subq Dispo - lives at home with , looks after all her needs - she is wheelchair bound and is unable to walk Code - Full: no cardiac resuscitation or mechanical ventilation Resident Physician Supervision Note: I interviewed and examined the patient. Discussed with Dr. Lobo Granados and agree with findings and plan as documented in the note. Any exceptions or clarifications are listed here: None This patient is a 71-year-old female with multiple sclerosis on monthly immunosuppressive injections. The patient presents with fever cough of sputum and chest x-ray which is read as a left upper lobe and bilateral lower lobe lesions. The patient has typical weakness is likely wheelchair. Vital signs are reviewed although she is not febrile here she is tachycardic and tachypneic Physical exam of her lungs are already not show any focal loss of aeration egophony or wheezing 69-year-old female with healthcare associated pneumonia, but with significant tuberculous exposure as a child with her grandfather dying of tuberculosis we will pursue quadrant testing. After discussion with Dr. Brambila and review her x-rays and previous bronchoscopy in 2014. He did not feel we needed to pursue sputum cultures were respiratory isolation on this patient. We will send a QuantiFERON goal however. She'll be maintained on levofloxacin and Zosyn with blood cultures pending Documented By: Matti David Level of Care Med/Surg Resuscitation Status FULL NO CARDIOV/MECH ONIEL VTE Prophylaxis VTE Risk Assessment Done? Y/N: Yes Risk Level: Moderate Given or contraindicated: Enoxaparin (Lovenox)SQ
--- NOTE | 2017-05-09 17:40 | EMERGENCY ROOM VISIT NOTE ---
History Report prepared by Fidencio: Ronel Walton Under the Supervision of: Dr. Roman Fuchs M.D. First contact with patient: 13:07 Chief Complaint: FEVER Stated Complaint: FEVER AND DISORIENTED History of Present Illness The patient is a 71 year old female who presents to the Emergency Room with complaints of constant fever that began today. She reports a fever of 101 at home today. The patient has not taken Tylenol or Motrin. She is experiencing confusion and disorientation. The patient has worsening weakness especially in her legs. She is experiencing a cough. The patient has a history of UTIs with the last being last month. She was put on Bactrim and switched to Amoxicillin which she just recently finished. Pt denies LOC, headache, chills, diaphoresis, visual changes, neck pain, chest pain, breathing difficulties, nausea, vomiting , abdominal pain, back pain, melena, hematochezia, numbness, lymphadenopathy, rash, or other complaints. Source of History: patient Onset: today Position: other (global) Symptom Intensity: 101 Quality: other (fever) Timing: constant Associated Symptoms: + cough, + weakness, No vomiting, No abdominal pain Review of Systems See HPI for pertinent positives and negatives. A total of ten systems were reviewed and were otherwise negative. Past Medical & Surgical Medical Problems: (1) Benign hypertension (2) Chronic peptic ulcer (3) Hysterectomy (4) Intertrochanteric fracture of right hip (5) Intertrochanteric fracture of right hip (6) Migraine (7) Multiple sclerosis (8) Multiple sclerosis (9) Multiple sclerosis exacerbation (10) non cardiac chest pain related to gi (11) Sepsis (12) STAPHYLOCOCCAL SEPTICEMIA, NEC (13) UTI (urinary tract infection) Surgical Problems: (1) S/P partial gastrectomy Family History Diabetes mellitus FH: cholecystectomy FHx: heart disease Social History Smoking Status: Former Smoker Alcohol Use: none Drug Use: none Marital Status: Housing Status: lives with family Occupation Status: retired Current/Historical Medications Scheduled Alendronate Sodium (Alendronate Sodium), 70 MG PO WK Amitriptyline Hcl (Elavil), 75 MG PO HS Cholecalciferol (Vitamin D3), 4,000 INTER.UNIT PO DAILY Ferrous Sulfate (Ferrous Sulfate), 325 MG PO BID Gabapentin (Gabapentin), 800 MG PO TID Magnesium Oxide (Mag-Ox), 400 MG PO QAM Methylcellulose (Laxative) (Citrucel), 2,000 MG PO DAILY Midodrine Hcl (Midodrine Hcl), 5 MG PO TID Mirtazapine (Mirtazapine), 45 MG PO HS Natalizumab (Tysabri), 1 DOSE IV MONTHLY Pantoprazole (Pantoprazole Sodium), 40 MG PO BID Scheduled PRN Acetaminophen Tab (Tylenol), 325 MG PO DAILY PRN for Pain or Fever Sumatriptan Succinate (Imitrex), 100 MG PO UD PRN for Migraine Tramadol Hcl (Ultram), 50 MG PO BID PRN for Pain Allergies Coded Allergies: Morphine (Verified Adverse Reaction, Intermediate, " MAKES ME MEAN" - CONFUSION, 05/09/17) Physical Exam Vital Signs Date Time Temp Pulse Resp B/P (MAP) Pulse Ox O2 Delivery O2 Flow Rate FiO2 05/09/17 16:12 129/79 93 Room Air 05/09/17 16:01 104 18 92 05/09/17 15:46 105 18 05/09/17 15:31 104 18 05/09/17 15:16 107 16 05/09/17 15:01 105 16 05/09/17 14:46 115 20 05/09/17 14:41 111 19 05/09/17 14:36 107 15 05/09/17 14:31 108 19 05/09/17 14:26 108 19 05/09/17 14:26 109 05/09/17 13:37 92 Room Air 05/09/17 13:04 36.6 129 18 82/50 92 Room Air Physical Exam GENERAL: Awake, alert, mildly ill-appearing, in no distress HENT: Normocephalic, atraumatic. Oropharynx unremarkable. EYES: Normal conjunctiva. Sclera non-icteric. NECK: Supple. No nuchal rigidity. FROM. No JVD. RESPIRATORY: Clear to auscultation. CARDIAC: Tachycardic rate, normal rhythm. Extremities warm and well perfused. Pulses equal. ABDOMEN: Soft, non-distended. No tenderness to palpation. No rebound or guarding. No masses. RECTAL: Deferred. MUSCULOSKELETAL: Chest examination reveals no tenderness. The back is symmetrical on inspection without obvious abnormality. There is no CVA tenderness to palpation. No joint edema. LOWER EXTREMITIES: Calves are equal size bilaterally and non-tender. No edema. No discoloration. NEURO: Normal sensorium. No sensory or motor deficits noted. Severe lower extremity weakness. SKIN: No rash or jaundice noted. Medical Decision & Procedures ER Provider Diagnostic Interpretation: X-ray: Per my interpretation, radiologist review. SINGLE VIEW CHEST CLINICAL HISTORY: Fever. FINDINGS: An AP, portable, supine chest radiograph is compared to study dated 04/24/2017 and correlated with chest CT dated 06/03/2016. The examination is degraded by portable technique and patient rotation. A left subclavian central venous infusion port is unchanged in position. The heart is top normal for projection and there is atherosclerotic calcification of the thoracic ureter. The pulmonary vasculature is noncongested. Chronic interstitial thickening is similar to previous. There is patchy airspace consolidation identified in the left upper lobe. Airspace opacities are also seen at both lung bases. There is a small left pleural effusion. No right-sided pleural effusion or pneumothorax is seen. The skeletal structures are osteopenic. Postoperative change and spinal rods are noted in the thoracic spine. Cholecystectomy clips are seen in the right upper quadrant. IMPRESSION: Patchy airspace consolidation is seen on the left upper lobe and at both lung bases. There is also a small left pleural effusion. The appearance is typical for multifocal pneumonia. Radiographic follow-up to resolution is recommended. Electronically signed by: Jason Santana M.D. 05/09/2017 3:05 PM Dictated Date/Time: 05/09/2017 2:59 PM Laboratory Results 05/09/17 13:30 Red Blood Count 3.78, Mean Corpuscular Volume 96.3, Mean Corpuscular Hemoglobin 32.0, Mean Corpuscular Hemoglobin Concent 33.2, Mean Platelet Volume 10.1, Neutrophils (%) (Auto) 81.3, Lymphocytes (%) (Auto) 8.6, Monocytes (%) (Auto) 7.9, Eosinophils (%) (Auto) 1.8, Basophils (%) (Auto) 0.1, Neutrophils # (Auto) 12.01, Lymphocytes # (Auto) 1.27, Monocytes # (Auto) 1.17, Eosinophils # (Auto) 0.26, Basophils # (Auto) 0.02 05/09/17 13:30 Test 05/09/17 13:30 05/09/17 13:33 05/09/17 14:00 White Blood Count 14.77 K/uL (4.8-10.8) Red Blood Count 3.78 M/uL (4.2-5.4) Hemoglobin 12.1 g/dL (12.0-16.0) Hematocrit 36.4 % (37-47) Mean Corpuscular Volume 96.3 fL (80-100) Mean Corpuscular Hemoglobin 32.0 pg (25-34) Mean Corpuscular Hemoglobin Concent 33.2 g/dl (32-36) Platelet Count 287 K/uL (130-400) Mean Platelet Volume 10.1 fL (7.4-10.4) Neutrophils (%) (Auto) 81.3 % Lymphocytes (%) (Auto) 8.6 % Monocytes (%) (Auto) 7.9 % Eosinophils (%) (Auto) 1.8 % Basophils (%) (Auto) 0.1 % Neutrophils # (Auto) 12.01 K/uL (1.4-6.5) Lymphocytes # (Auto) 1.27 K/uL (1.2-3.4) Monocytes # (Auto) 1.17 K/uL (0.11-0.59) Eosinophils # (Auto) 0.26 K/uL (0-0.5) Basophils # (Auto) 0.02 K/uL (0-0.2) RDW Standard Deviation 56.8 fL (36.4-46.3) RDW Coefficient of Variation 16.3 % (11.5-14.5) Immature Granulocyte % (Auto) 0.3 % Immature Granulocyte # (Auto) 0.04 K/uL (0.00-0.02) Nucleated RBC Absolute Count (auto) 0.06 K/uL (0-0) Nucleated Red Blood Cells % 0.4 % Prothrombin Time 10.3 SECONDS (9.0-12.0) Prothromb Time International Ratio 1.0 (0.9-1.1) Activated Partial Thromboplast Time 49.9 SECONDS (21.0-31.0) Partial Thromboplastin Ratio 1.9 Anion Gap 7.0 mmol/L (3-11) Est Creatinine Clear Calc Drug Dose 47.4 ml/min Estimated GFR () 92.8 Estimated GFR (Non- 80.0 BUN/Creatinine Ratio 32.6 (10-20) Calcium Level 8.5 mg/dl (8.5-10.1) Magnesium Level 2.0 mg/dl (1.8-2.4) Total Bilirubin 0.3 mg/dl (0.2-1) Direct Bilirubin < 0.1 mg/dl (0-0.2) Aspartate Amino Transf (AST/SGOT) 23 U/L (15-37) Alanine Aminotransferase (ALT/SGPT) 39 U/L (12-78) Alkaline Phosphatase 126 U/L (45-117) Troponin I < 0.015 ng/ml (0-0.045) Total Protein 5.1 gm/dl (6.4-8.2) Albumin 2.5 gm/dl (3.4-5.0) Lipase 46 U/L (73-393) Thyroid Stimulating Hormone (TSH) 0.491 uIu/ml (0.300-4.500) Bedside Lactic Acid Venous 1.53 mmol/L (0.90-1.70) Urine Color DK YELLOW Urine Appearance CLEAR (CLEAR) Urine pH 5.0 (4.5-7.5) Urine Specific [place] 1.027 (1.000-1.030) Urine Protein NEG (NEG) Urine Glucose (UA) TRACE (NEG) Urine Ketones NEG (NEG) Urine Occult Blood NEG (NEG) Urine Nitrite NEG (NEG) Urine Bilirubin NEG (NEG) Urine Urobilinogen NEG (NEG) Urine Leukocyte Esterase TRACE (NEG) Urine WBC (Auto) 1-5 /hpf (0-5) Urine RBC (Auto) 5-10 /hpf (0-4) Urine Hyaline Casts (Auto) 1-5 /lpf (0-5) Urine Epithelial Cells (Auto) 10-20 /lpf (0-5) Urine Bacteria (Auto) NEG (NEG) Urine Crystals URIC ACID (NONE PRSENT) Laboratory results reviewed by me Medications Administered Medications (Trade) Dose Ordered Sig/Melvin Route Start Time Stop Time Status Last Admin Dose Admin Sodium Chloride 1,000 ml @ 125 mls/hr Q8H STAT IV 05/09/17 13:12 05/09/17 21:11 05/09/17 14:10 125 MLS/HR Sodium Chloride 1,000 ml @ 999 mls/hr Q1H1M STAT IV 05/09/17 13:12 05/09/17 14:12 DC 05/09/17 14:10 999 MLS/HR Piperacillin Sod/ Tazobactam Sod (Zosyn Iv) 4.5 gm NOW STAT IV 05/09/17 14:32 05/09/17 14:33 DC 05/09/17 14:40 4.5 GM Levofloxacin (Levaquin / D5W) 750 mg NOW STAT IV 05/09/17 15:42 05/09/17 15:44 DC 05/09/17 16:12 750 MG ECG Indication: weakness Rate (beats per minute): 111 Rhythm: sinus tachycardia Findings: nonspecific-ST abn, no ectopy ED Course 1310: The patient was evaluated in room C5. A complete history and physical exam was performed. 1312: Sodium Chloride 1,000 ml @ 999 mls/hr IV, Sodium Chloride 1,000 ml @ 125 mls/hr IV. 1432: Zosyn IV 4.5 gm IV. 1542: Levaquin / D5W 750 mg IV. 1543: I reevaluated the patient. 1608: Discussed the patient's case with Dr. Frankie BORGES. The patient will be evaluated for further treatment and disposition. 1613: Upon reexamination, the patient was hemodynamically stable. I discussed the test results and treatment plan with Dr. Frankie BORGES. The patient will be evaluated for further management. Medical Decision Medication Reconciliation: I attest that I have personally reviewed the patient' s current medication list Blood pressure screening: Patient was found to have normal blood pressure on screening and does not require follow-up. Triage Nursing notes reviewed. The patient's presentation and history were concerning for weakness and fever. Etiologies such as metabolic, infection, hypo/hyperglycemia, electrolyte abnormalities, cardiac sources, intracerebral event, toxicologic, neurologic, as well as others were entertained. The patient was evaluated. She was hypotensive and tachycardic. She noted a fever of 101 at home. The patient had a fluid bolus given. Her tachycardia improved. She was started on IV Zosyn. Chest imaging was concerning for pneumonia. IV Levaquin was also given. Her blood counts revealed a leukocytosis of 14,000. Chem panel was unremarkable. Urinalysis was unremarkable. The patient was reassessed. She and her were informed. She will need further evaluation and management in the hospital. Consultation was made with internal medicine. The patient was evaluated in the Emergency Room for further treatment. Consults Time Called: 1603 Consulting Physician: Dr. David - HUGH Returned Call: [phone] Discussed the patient's case. The patient will be evaluated for further treatment and disposition. Impression Primary Impression: Sepsis Additional Impressions: Weakness Dehydration Pneumonia Scribe Attestation The scribe's documentation has been prepared under my direction and personally reviewed by me in its entirety. I confirm that the note above accurately reflects all work, treatment, procedures, and medical decision making performed by me. Departure Information Dispostion Being Evaluated By Hospitalist Referrals George Montoya M.D. (PCP) Problem Qualifiers
[2017-05-09] MEDS ORDERED: SUMATRIPTAN SUCC TAB 100 MG TAB PO PRN (17:45)
[2017-05-09] MEDS ORDERED: PIPERACILL/TAZOBAC CONSULT ACTIVE PRN (17:45)
[2017-05-09] MEDS ORDERED: ACETAMINOPHEN 325 MG TAB PO PRN (17:45)
[2017-05-09] MEDS ORDERED: LEVOFLOXACIN CONSULT ACTIVE PRN (17:45)
[2017-05-09] MEDS ORDERED: POLYETHYLENE (MIRALAX) 17 GM PACK PO PRN (17:45)
[2017-05-09] MEDS ORDERED: OPTIRAY 320 IV PRN (18:00)
[2017-05-09 19:01] VITALS: BP 129/79; PULSE 106; TEMP 36.6; Ht 160 cm; Wt 43.0 kg
[2017-05-09] MEDS: TRAMADOL HCL 50 MG TAB PO PRN (19:56)
[2017-05-09] MEDS: MIRTAZAPINE TAB 15 MG TAB PO SCH (19:58)
[2017-05-09] MEDS: FERROUS SULFATE 325 MG TAB PO SCH (19:58)
[2017-05-09] MEDS: GABAPENTIN 800 MG TAB PO SCH (19:58)
[2017-05-09] MEDS: PANTOprazole SOD 40 MG TAB PO SCH (19:59)
[2017-05-09] MEDS: AMITRIPTYLINE HCL 25 MG TAB PO SCH (20:00)
[2017-05-09] MEDS: PIPERACILL/TAZOBAC IV 3.375 GM in DEXTROSE 5% 100ML 100 ML IV SCH (20:05)
[2017-05-09] MEDS: HEPARIN SOD 5000 UNIT/0.5 ML CARP SQ SCH (21:28)
--- NOTE | 2017-05-09 22:03 | DIAGNOSTIC IMAGING REPORT ---
CHEST CT WITH CONTRAST CT DOSE: 176.48 mGy.cm HISTORY: Pneumonia Left upper lobe pneumonia TECHNIQUE: Multiaxial CT images of the chest were performed following the intravenous administration of contrast. COMPARISON: 06/03/2016 FINDINGS: diffuse parenchymal infiltrative process left upper lung. Is seen to a lesser extent involving the lingula. There are interval parenchymal infiltrative changes in both lung bases involving the right as well as left lower lobe region. There is involvement of the superior segment of the left lower lobe. Interval placement of a central catheter in superior vena cava. Slight pectus deformity of the chest. Mild stable cardiomegaly. Stable postoperative changes consistent with laminectomy and fusion of the thoracolumbar spine. IMPRESSION: 1. Diffuse multifocal parenchymal infiltrates throughout both lungs. 2. These findings predominate in the left upper lung, as well as in the right as well as left lower lobe regions.. 3. Mild stable cardiomegaly. Electronically signed by: Geovany De Jesus M.D. 05/09/2017 10:01 PM Dictated Date/Time: 05/09/2017 9:58 PM
[2017-05-09 23:07] VITALS: BP 151/76; PULSE 131; TEMP 38.1; O2SAT 93
[2017-05-09 23:40] VITALS: BP 134/71; PULSE 90; TEMP 37.9; O2SAT 93
[2017-05-10] MEDS: ACETAMINOPHEN 325 MG TAB PO PRN (00:13)
[2017-05-10 00:30] VITALS: O2SAT 93
[2017-05-10 00:52] VITALS: PULSE 129; O2SAT 90
[2017-05-10] MEDS: PIPERACILL/TAZOBAC IV 3.375 GM in DEXTROSE 5% 100ML 100 ML IV SCH ×3 (03:43→20:07)
[2017-05-10 03:44] VITALS: BP 134/77; PULSE 107; TEMP 37.1; O2SAT 98
[2017-05-10 05:55] LABS: HEMATOCRIT 32.3 % (37-47); MEAN CELL VOLUME 96.7 fL (80-100); MEAN CORPUSCULAR HEMOGLOBIN 31.7 pg (25-34); MEAN CORPUSCULAR HGB CONC 32.8 g/dl (32-36); MEAN PLATELET VOLUME 9.9 fL (7.4-10.4); PLATELET COUNT 221 K/uL (130-400); RED BLOOD COUNT 3.34 M/uL (4.2-5.4); WHITE BLOOD COUNT 13.91 K/uL (4.8-10.8)
[2017-05-10 06:47] LABS: BUN/CREATININE RATIO 35.6 (10-20); CALCIUM 7.5 mg/dl (8.5-10.1); CREATININE 0.41 mg/dl (0.60-1.20); POTASSIUM 3.2 mmol/L (3.5-5.1)
[2017-05-10 07:55] VITALS: BP_SYST 137; BP_SYST 163; BP_DIAS 78; BP_DIAS 96; PULSE 100; PULSE 68; TEMP 36.5; TEMP 36.7; O2SAT 95; O2SAT 98
[2017-05-10] MEDS: METHYLCELLULOSE POWDER 454 GM JAR PO SCH (09:28)
[2017-05-10] MEDS: GABAPENTIN 800 MG TAB PO SCH ×3 (09:29→20:08)
[2017-05-10] MEDS: MAGNESIUM OXIDE 400 MG TAB PO SCH (09:29)
[2017-05-10] MEDS: MIDODRINE 2.5 MG TAB PO SCH ×3 (09:30→17:40)
[2017-05-10] MEDS: PANTOprazole SOD 40 MG TAB PO SCH ×2 (09:30→20:09)
[2017-05-10] MEDS: FERROUS SULFATE 325 MG TAB PO SCH ×2 (09:31→20:08)
[2017-05-10] MEDS: CHOLECALCIFEROL 1000 INTER.UNIT TAB PO SCH (09:31)
[2017-05-10] MEDS: HEPARIN SOD 5000 UNIT/0.5 ML CARP SQ SCH ×2 (09:37→20:14)
[2017-05-10 15:38] VITALS: BP 121/72; PULSE 109; TEMP 36.6; O2SAT 96
[2017-05-10 16:00] VITALS: O2SAT 96
[2017-05-10] MEDS ORDERED: LEVOFLOXACIN / D5W 750 MG in PREMIXED IN D5W 150 ML IV SCH (16:00)
--- NOTE | 2017-05-10 17:07 | Progress Note ---
Subjective Date of Service: May 10, 2017. Subjective Pt evaluation today including: conversation w/ patient, physical exam, chart review, lab review, review of studies, review of inpatient medication list Pt reports feeling better No shortness of breath Resting comfortable in bed Denies any productive cough Problem List Medical Problems: (1) Altered mental status Status: Acute (2) Altered mental status Status: Acute (3) Cystitis Status: Acute (4) Dehydration Status: Acute (5) Exacerbation of multiple sclerosis Status: Acute (6) Fall at home Status: Acute (7) Femur fracture Status: Acute (8) Fever Status: Acute (9) Fracture of right hip Status: Acute (10) Headache Status: Acute (11) Hypokalemia Status: Acute (12) Intractable pain Status: Acute (13) Intractable vomiting Status: Acute (14) Migraine Status: Acute (15) Migraine Status: Acute (16) Migraine Status: Acute (17) Migraine Status: Acute (18) Migraine Status: Acute (19) Migraine Status: Acute (20) Migraine Status: Acute (21) Migraine Status: Acute (22) Migraine Status: Acute (23) Migraine Status: Acute (24) Migraine headache Status: Acute (25) Pelvis fracture, right Status: Acute (26) Pneumonia Status: Acute (27) Pneumonia Status: Acute (28) Pressure ulcer of right buttock Status: Acute (29) Status post closed fracture of right hip Status: Acute (30) UTI (urinary tract infection) Status: Acute (31) Weakness Status: Acute (32) Weakness Status: Acute Review of Systems Constitutional: No fever, No chills ENT: No hearing loss, No unusual epistaxis, No nasal symptoms, No sore throat Respiratory: + shortness of breath, + dyspnea at rest, No cough, No sputum, No wheezing Cardiac: No chest pain, No orthopnea, No PND, No edema Abdomen: No pain, No nausea, No vomiting, No diarrhea Musculoskeletal: No joint pain, No muscle pain, No swelling Female : No dysuria, No urinary frequency, No hematuria, No incontinence Neurologic: No memory loss, No paralysis, No weakness, No numbness/tingling Psychiatric: No depression symptoms, No anhedonism, No anxiety, No insomnia Skin: No rash, No itch Objective Vital Signs Date Time Temp Pulse Resp B/P (MAP) Pulse Ox O2 Delivery O2 Flow Rate FiO2 05/10/17 15:38 36.6 109 20 121/72 (88) 96 Nasal Cannula 2.0 05/10/17 07:55 36.7 100 18 137/78 (97) 95 Nasal Cannula 2.0 05/10/17 03:44 37.1 107 20 134/77 (96) 98 Nasal Cannula 05/10/17 00:52 129 20 90 Room Air Nasal Cannula 05/10/17 00:30 93 Room Air Nasal Cannula 05/09/17 23:40 37.9 90 18 134/71 (92) 93 Room Air 05/09/17 23:07 38.1 131 18 151/76 (101) 93 Room Air 05/09/17 19:01 36.6 106 21 129/79 Room Air 05/09/17 18:10 36.6 106 21 129/79 93 05/09/17 17:32 106 21 93 05/09/17 17:17 105 23 93 05/09/17 17:02 108 26 94 Physical Exam General Appearance: WD/WN, no apparent distress ENT: normal ENT inspection, hearing grossly normal, TMs normal, pharynx normal Neck: supple, no adenopathy, thyroid normal, no JVD Respiratory/Chest: chest non-tender, no respiratory distress, no accessory muscle use, + decreased breath sounds Cardiovascular: regular rate, rhythm, no edema, no gallop, no JVD Abdomen: normal bowel sounds, non tender, soft, no organomegaly Neurologic/Psychiatric: no motor/sensory deficits, alert, normal mood/affect, oriented x 3 Laboratory Results Last 24 Hours Test 05/10/17 05:30 White Blood Count 13.91 K/uL Red Blood Count 3.34 M/uL Hemoglobin 10.6 g/dL Hematocrit 32.3 % Mean Corpuscular Volume 96.7 fL Mean Corpuscular Hemoglobin 31.7 pg Mean Corpuscular Hemoglobin Concent 32.8 g/dl RDW Standard Deviation 55.9 fL RDW Coefficient of Variation 16.2 % Platelet Count 221 K/uL Mean Platelet Volume 9.9 fL Sodium Level 143 mmol/L Potassium Level 3.2 mmol/L Chloride Level 111 mmol/L Carbon Dioxide Level 23 mmol/L Anion Gap 9.0 mmol/L Blood Urea Nitrogen 15 mg/dl Creatinine 0.41 mg/dl Est Creatinine Clear Calc Drug Dose 87.9 ml/min Estimated GFR () 122.2 Estimated GFR (Non- 105.4 BUN/Creatinine Ratio 35.6 Random Glucose 69 mg/dl Calcium Level 7.5 mg/dl Assessment and Plan 71 year old female with PMH of MS here with a 3 day history of cough, fever and chills. Was found to have a multifocal pneumonia on CXR. Imaging shows patchy consolidation of left upper lobe and lung bases. She was recently hospitalized and therefore this would be considered a hospital acquire pneumonia. Hospital Acquire Pneumonia - Reviewed CXR showed multifocal patchy consolidation in left upper and lower lobes - High resolution CT of chest - diffuse multifocal parenchymal infiltrates throughout both lungs. These findings predominate in the left upper lung, as well as in the right as well as left lower lobe regions - WCC 14 -->13.91 - Blood cultures pending - Cont IV Zosyn and IV levaquin for now - IV NSS 125 mls/hr - Follow up with pulmonology as outpatient Mult sclerosis - Amitryptiline, gabapentin and Natalizumab (IV once monthly), has port site - Follows with Dr. Gerardo Hypotension - continue midodrine GERD - hx of peptic ulcer with partial gastrectomy - continue pantoprazole Migraine - imitrex and tramadol Depression stable - Cont mirtazapine 45 mg PO q HS Osteoporosis - Cont Alendronate DVT prophylaxis - Heparin 5000 units SC q 8 hrs Code - Full Code
[2017-05-10] MEDS ORDERED: NURSING VERBAL MED ORDER STA (18:14)
[2017-05-10] MEDS ORDERED: POTASSIUM CHLORIDE 10 MEQ TABCR PO ONE (18:45)
[2017-05-10] MEDS: AMITRIPTYLINE HCL 25 MG TAB PO SCH (20:09)
[2017-05-10] MEDS: MIRTAZAPINE TAB 15 MG TAB PO SCH (20:10)
[2017-05-11 00:03] VITALS: BP 158/87; PULSE 121; TEMP 38
[2017-05-11] MEDS: ACETAMINOPHEN 325 MG TAB PO PRN (00:32)
[2017-05-11] MEDS: PIPERACILL/TAZOBAC IV 3.375 GM in DEXTROSE 5% 100ML 100 ML IV SCH ×3 (03:51→20:17)
[2017-05-11 04:02] VITALS: BP 128/78; PULSE 102; TEMP 36.8; O2SAT 95
[2017-05-11 06:36] LABS: CREATININE 0.26 mg/dl (0.60-1.20)
[2017-05-11 07:35] VITALS: BP 146/82; PULSE 105; TEMP 36.8; O2SAT 97
[2017-05-11] MEDS: METHYLCELLULOSE POWDER 454 GM JAR PO SCH (07:37)
[2017-05-11] MEDS: FERROUS SULFATE 325 MG TAB PO SCH ×2 (07:37→20:07)
[2017-05-11] MEDS: PANTOprazole SOD 40 MG TAB PO SCH ×2 (07:37→20:09)
[2017-05-11] MEDS: GABAPENTIN 800 MG TAB PO SCH ×3 (07:37→20:08)
[2017-05-11] MEDS: MAGNESIUM OXIDE 400 MG TAB PO SCH (07:37)
[2017-05-11] MEDS: CHOLECALCIFEROL 1000 INTER.UNIT TAB PO SCH (07:37)
[2017-05-11] MEDS: MIDODRINE 2.5 MG TAB PO SCH ×3 (07:38→17:03)
[2017-05-11] MEDS: HEPARIN SOD 5000 UNIT/0.5 ML CARP SQ SCH ×2 (07:42→20:16)
--- NOTE | 2017-05-11 09:15 | Clinical Documentation Query ---
CLINICAL DOCUMENTATION QUERY 71 year old female who presents to the Emergency Room with presents with sob, reported fever, and confusion. She has been diagnosed with HCAP. Query #1/4 In your clinical opinion is this patient being managed for: ( X ) Sepsis in setting of HCAP treated with IVF with boluses and multiple IV antibiotics ( ) Other explanation of clinical findings (Please Explain) ( ) Unable to determine (Please Define) ( ) Need to Discuss ( ) Not Agree The medical record reflects the following clinical findings, treatment, and risk factors. Clinical Indicators: Fever 38.0, tachycardia 129, hypotension 82/80, leukocytosis 14.77, HCAP per workup. Treatment: IV Levofloxacin, IV Zosyn, IVFs with boluses Risk Factors: Age, HCAP, MS, Query #2/4 In your clinical opinion is this patient being managed for: (X ) Suspected Staphylococcal or Gram negative pneumonia in setting of HCAP treated with IV Levofloxacin, IV Zosyn, ( ) Other explanation of clinical findings (Please Explain) ( ) Unable to determine (Please Define) ( ) Need to Discuss ( ) Not Agree The medical record reflects the following clinical findings, treatment, and risk factors. Clinical Indicators: HCAP, CXR showed multifocal patchy consolidation in left upper and lower lobes, WBC's 14.77, Fever 38.0. Treatment: IV Levofloxacin, IV Zosyn, Risk Factors: Age, MS, recent healthcare contact Query #3/4 In your clinical opinion is this patient being managed for: (X ) Severe protein calorie malnutrition in setting of MS and acute illness ( ) Other explanation of clinical findings (Please Explain) ( ) Unable to determine (Please Define) ( ) Need to Discuss ( ) Not Agree The medical record reflects the following clinical findings, treatment, and risk factors. Clinical Indicators: patient is documented as being thin. RD notes recent weight loss of 5 Kg's in last 6 months. Weight loss deficit of >=10%. Total protein 5.1, Albumin 2.5, Treatment: daily weights and I/O's, snacks BID, vitamin D supplementation, recommendation of MVI w/mineral, and replete electrolytes. Risk Factors: Age, MS, recent illnesses requiring hospitalization. Query #4/4 In your clinical opinion is this patient being managed for: (X ) Metabolic/septic encephalopathy in setting of HCAP and malnutrition. ( ) Other explanation of clinical findings (Please Explain) ( ) Unable to determine (Please Define) ( ) Need to Discuss ( ) Not Agree The medical record reflects the following clinical findings, treatment, and risk factors. Clinical Indicators: presented with confusion, disorientation, fever, hypotension. Treatment: IV Levofloxacin, IV Zosyn, IVFs with boluses Risk Factors: Age, infection, electrolyte imbalances, hypotension Please clarify and document your clinical opinion in the progress notes and discharge summary. Terms such as "probable", "suspected", "likely", "questionable", "possible", or "still to be ruled out" are acceptable. IF IN AGREEMENT, YOU MUST DOCUMENT ABOVE DIAGNOSTIC STATEMENT IN DAILY PROGRESS NOTES AND DISCHARGE SUMMARY. This document is not part of the patient's record. Malnutrition Characteristics (2 of 6) in Acute Illness/Injury CHARACTERISTICS MODERATE MALNUTRITION SEVERE MALNUTRITION ENERGY INTAKE <75% of estimated energyrequirement for >7 days <50% of estimated energyrequirement for >5 days WEIGHT LOSS 1-2%/1 week 5%/1 month 7.5%/3 months >1-2%/1 week >5%/1 month >7.5%/3 months BODY FAT*loss of SQ fat from the orbits,triceps, or fat overlying the ribs MILD MODERATE MUSCLE MASS*muscle wasting at the temples,clavicles, shoulders, interosseousspaces,scapula, thigh, calf MILD MODERATE FLUID ACCUMULATION*localized or generalized edemaof the extremities, vulva, scrotumweight loss may be masked byedema MILD MODERATE-SEVERE WAREHOUSE DELIVERY MANAGER STRENGTH N/A measurably decreased perthe device's standards Malnutrition Characteristics (2 of 6) in Chronic Illness CHARACTERISTICS MODERATE MALNUTRITION SEVERE MALNUTRITION ENERGY INTAKE <75% of estimated energyrequirement for >1 month <75% of estimated energyrequirement for >1 month WEIGHT LOSS 5%/1 month 7.5%/3 months 10%/6 months 20%/1 year > 5%/1 month >7.5%/3 months >10%/6 months >20%/1 year BODY FAT*loss of SQ fat from the orbits,triceps, or fat overlying the ribs MILD SEVERE MUSCLE MASS*muscle wasting at the temples,clavicles, shoulders, interosseousspaces,scapula, thigh, calf MILD SEVERE FLUID ACCUMULATION*localized or generalized edemaof the extremities, vulva, scrotumweight loss may be masked byedema MILD SEVERE WAREHOUSE DELIVERY MANAGER STRENGTH N/A measurably decreased perthe device's standards Thank You, Tim Marshall, JOSE [phone]
[2017-05-11 09:25] LABS: BUN/CREATININE RATIO 12.6 (10-20); CALCIUM 7.9 mg/dl (8.5-10.1); POTASSIUM 3.2 mmol/L (3.5-5.1)
[2017-05-11 09:28] LABS: CREATININE 0.7 mg/dl (0.60-1.20)
[2017-05-11 10:46] LABS: BASO % 0.3 %; BASO ABS # 0.03 K/uL (0-0.2); COMPLETE YES; HEMATOCRIT 31.6 % (37-47); IG% 0.3 %; LYMPH % 10.7 %; LYMPH ABS # 1.18 K/uL (1.2-3.4); MEAN CELL VOLUME 94.9 fL (80-100); MEAN CORPUSCULAR HEMOGLOBIN 31.8 pg (25-34); MEAN CORPUSCULAR HGB CONC 33.5 g/dl (32-36); MEAN PLATELET VOLUME 9.7 fL (7.4-10.4); MONO % 6.5 %; NEUT % 79.2 %; PLATELET COUNT 211 K/uL (130-400); RED BLOOD COUNT 3.33 M/uL (4.2-5.4); WHITE BLOOD COUNT 10.98 K/uL (4.8-10.8)
[2017-05-11] MEDS ORDERED: POTASSIUM CHLORIDE 20 MEQ TABCR PO ONE (11:00)
--- NOTE | 2017-05-11 12:24 | Pharmacy Progress Note ---
Automatic IV to PO Conversion Date of Service: May 11, 2017. [facility] has identified patient as an appropriate candidate for automatic intravenous to oral conversion. Eligible medication: LVQ IV every 24 hours. Day # 2 of IV therapy. Subjective The patient is a 71 year old female admitted on May 09, 2017 at 16:52 for Pneumonia. Objective Vital Signs: Vital Signs Past 12 Hours Date Time Temp Pulse Resp B/P (MAP) Pulse Ox O2 Delivery O2 Flow Rate FiO2 05/11/17 08:00 Room Air 05/11/17 07:35 36.8 105 18 146/82 (103) 97 Room Air 05/11/17 04:02 36.8 102 20 128/78 (95) 95 Room Air White Blood Count: Test 05/11/17 10:33 White Blood Count 10.98 K/uL (4.8-10.8) Red Blood Count 3.33 M/uL (4.2-5.4) Hemoglobin 10.6 g/dL (12.0-16.0) Hematocrit 31.6 % (37-47) Mean Corpuscular Volume 94.9 fL (80-100) Mean Corpuscular Hemoglobin 31.8 pg (25-34) Mean Corpuscular Hemoglobin Concent 33.5 g/dl (32-36) Platelet Count 211 K/uL (130-400) Mean Platelet Volume 9.7 fL (7.4-10.4) Neutrophils (%) (Auto) 79.2 % Lymphocytes (%) (Auto) 10.7 % Monocytes (%) (Auto) 6.5 % Eosinophils (%) (Auto) 3.0 % Basophils (%) (Auto) 0.3 % Neutrophils # (Auto) 8.70 K/uL (1.4-6.5) Lymphocytes # (Auto) 1.18 K/uL (1.2-3.4) Monocytes # (Auto) 0.71 K/uL (0.11-0.59) Eosinophils # (Auto) 0.33 K/uL (0-0.5) Basophils # (Auto) 0.03 K/uL (0-0.2) Height (Feet): 5 Height (Inches): 3.00 Weight (Kilograms): 43.000 Microbiology Date/Time Source Procedure Growth Status 05/11/17 11:45 Nasal MRSA DNA Surveillance Screen Pending Received Assessment & Plan The Infectious Disease Society and the [place] [employer] recommend conversion to oral therapy once a patient is determined to be clinically stable and are able to tolerate oral medications. Patient identified as appropriate candidate for IV to PO conversion of LVQ 750 mg based on the following criteria: * Afebrile for greater than or equal to 12 hours * Receiving oral/enteral medications and/or tolerating oral/enteral diet for greater than 24 hours * Improvement in clinical condition evidenced by .. WBC count of 10.98 10^3/uL and trending downward, resolution of signs/symptoms of illness * Hemodynamically stable or * Receiving oral medications and/or tolerating oral diet for greater than 24 hours * Patient does not meet criteria for use of intravenous proton pump inhibitors ( negative for GI bleed, hypersecretory conditions, GERD associated with erosive esophagitis & unable to take PO) Automatic conversion to: LVQ 750mg PO every 24 hours
[2017-05-11 15:40] VITALS: BP 147/95; PULSE 103; O2SAT 97
[2017-05-11] MEDS: LEVOFLOXACIN 750 MG TAB PO SCH (15:45)
--- NOTE | 2017-05-11 15:55 | Progress Note ---
Subjective Date of Service: May 11, 2017. Subjective Pt evaluation today including: conversation w/ patient, physical exam, chart review, lab review, review of studies, review of inpatient medication list Resting comfortably in bed No reports of worsening sob or productive cough No other concerns at this time Problem List Medical Problems: (1) Altered mental status Status: Acute (2) Altered mental status Status: Acute (3) Cystitis Status: Acute (4) Dehydration Status: Acute (5) Exacerbation of multiple sclerosis Status: Acute (6) Fall at home Status: Acute (7) Femur fracture Status: Acute (8) Fever Status: Acute (9) Fracture of right hip Status: Acute (10) Headache Status: Acute (11) Hypokalemia Status: Acute (12) Intractable pain Status: Acute (13) Intractable vomiting Status: Acute (14) Migraine Status: Acute (15) Migraine Status: Acute (16) Migraine Status: Acute (17) Migraine Status: Acute (18) Migraine Status: Acute (19) Migraine Status: Acute (20) Migraine Status: Acute (21) Migraine Status: Acute (22) Migraine Status: Acute (23) Migraine Status: Acute (24) Migraine headache Status: Acute (25) Pelvis fracture, right Status: Acute (26) Pneumonia Status: Acute (27) Pneumonia Status: Acute (28) Pressure ulcer of right buttock Status: Acute (29) Status post closed fracture of right hip Status: Acute (30) UTI (urinary tract infection) Status: Acute (31) Weakness Status: Acute (32) Weakness Status: Acute Review of Systems Constitutional: No fever, No chills, No sweats, No weight loss, No weakness, No fatigue Eyes: No worsening of vision, No eye pain, No redness, No discharge ENT: No hearing loss, No unusual epistaxis, No nasal symptoms, No sore throat Respiratory: No cough, No sputum, No shortness of breath, No dyspnea on exertion Cardiac: No chest pain, No orthopnea, No PND, No edema Abdomen: No pain, No nausea, No vomiting, No diarrhea, No constipation Musculoskeletal: No joint pain, No muscle pain Female : No dysuria, No urinary frequency, No hematuria, No incontinence Neurologic: No memory loss, No paralysis, No weakness, No numbness/tingling Psychiatric: No depression symptoms, No anhedonism, No anxiety, No insomnia Endo: No fatigue, No excessive thirst Skin: No rash, No itch Objective Vital Signs Date Time Temp Pulse Resp B/P (MAP) Pulse Ox O2 Delivery O2 Flow Rate FiO2 05/11/17 15:40 103 16 147/95 (112) 97 Room Air 05/11/17 08:00 Room Air 05/11/17 07:35 36.8 105 18 146/82 (103) 97 Room Air 05/11/17 04:02 36.8 102 20 128/78 (95) 95 Room Air 05/11/17 00:15 Room Air 05/11/17 00:03 38.0 121 18 158/87 (110) Room Air 05/10/17 16:00 96 Room Air Nasal Cannula Physical Exam General Appearance: WD/WN, no apparent distress, + thin Eyes: normal inspection, PERRL, EOMI, sclerae normal Neck: supple, no adenopathy, thyroid normal, no JVD Respiratory/Chest: chest non-tender, lungs clear, normal breath sounds, no respiratory distress Cardiovascular: regular rate, rhythm, no edema, no gallop, no JVD Abdomen: normal bowel sounds, non tender, soft, no organomegaly Extremities: normal range of motion, non-tender, normal inspection, no pedal edema Neurologic/Psychiatric: no motor/sensory deficits, alert, normal mood/affect, oriented x 3 Skin: normal color, warm/dry, no rash Lymphatic: no adenopathy Laboratory Results Last 24 Hours Test 05/10/17 16:02 05/11/17 05:30 05/11/17 08:34 05/11/17 10:33 Bedside Glucose 108 mg/dl Creatinine 0.26 mg/dl 0.70 mg/dl Est Creatinine Clear Calc Drug Dose 138.6 ml/min 51.5 ml/min Estimated GFR () 141.9 102.5 Estimated GFR (Non- 122.5 88.4 Sodium Level 143 mmol/L Potassium Level 3.2 mmol/L Chloride Level 111 mmol/L Carbon Dioxide Level 24 mmol/L Anion Gap 8.0 mmol/L Blood Urea Nitrogen 9 mg/dl BUN/Creatinine Ratio 12.6 Random Glucose 206 mg/dl Calcium Level 7.9 mg/dl White Blood Count 10.98 K/uL Red Blood Count 3.33 M/uL Hemoglobin 10.6 g/dL Hematocrit 31.6 % Mean Corpuscular Volume 94.9 fL Mean Corpuscular Hemoglobin 31.8 pg Mean Corpuscular Hemoglobin Concent 33.5 g/dl Platelet Count 211 K/uL Mean Platelet Volume 9.7 fL Neutrophils (%) (Auto) 79.2 % Lymphocytes (%) (Auto) 10.7 % Monocytes (%) (Auto) 6.5 % Eosinophils (%) (Auto) 3.0 % Basophils (%) (Auto) 0.3 % Neutrophils # (Auto) 8.70 K/uL Lymphocytes # (Auto) 1.18 K/uL Monocytes # (Auto) 0.71 K/uL Eosinophils # (Auto) 0.33 K/uL Basophils # (Auto) 0.03 K/uL RDW Standard Deviation 55.2 fL RDW Coefficient of Variation 15.9 % Immature Granulocyte % (Auto) 0.3 % Immature Granulocyte # (Auto) 0.03 K/uL Procalcitonin 0.42 ng/ml Test 05/11/17 11:05 Assessment and Plan 71 year old female with PMH of MS here with a 3 day history of cough, fever and chills. Was found to have a multifocal pneumonia on CXR. Imaging shows patchy consolidation of left upper lobe and lung bases. She was recently hospitalized and therefore this would be considered a hospital acquired pneumonia. Sepsis in setting of HCAP treated with IVF with boluses and multiple IV antibiotics Suspected Staphylococcal or Gram negative pneumonia in setting of HCAP treated with IV Levofloxacin, IV Zosyn, Metabolic/septic encephalopathy in setting of HCAP and malnutrition resolved - Reviewed CXR showed multifocal patchy consolidation in left upper and lower lobes - High resolution CT of chest - diffuse multifocal parenchymal infiltrates throughout both lungs. These findings predominate in the left upper lung, as well as in the right as well as left lower lobe regions - WCC 14 -->13.91-->10 - Blood cultures neg - No SOB and off O2 - Cont IV Zosyn and IV levaquin for now, will transition to PO antibx in next 24hrs - IV NSS 125 mls/hr - Follow up with pulmonology as outpatient Mult sclerosis stable - Amitryptiline, gabapentin and Natalizumab (IV once monthly), has port site - Follows with Dr. Gerardo Hypotension, resolved, likely due to sepsis - continue midodrine GERD - hx of peptic ulcer with partial gastrectomy - continue pantoprazole Severe protein calorie malnutrition in setting of MS and acute illness - Cont current diet Migraine - imitrex and tramadol Depression stable - Cont mirtazapine 45 mg PO q HS Osteoporosis - Cont Alendronate DVT prophylaxis - Heparin 5000 units SC q 8 hrs Code - Full Code
[2017-05-11] MEDS: TRAMADOL HCL 50 MG TAB PO PRN (18:10)
[2017-05-11] MEDS: MIRTAZAPINE TAB 15 MG TAB PO SCH (20:07)
[2017-05-11] MEDS: AMITRIPTYLINE HCL 25 MG TAB PO SCH (20:08)
[2017-05-12 00:12] VITALS: BP 148/97; PULSE 109; TEMP 37.2; O2SAT 97
[2017-05-12] MEDS: PIPERACILL/TAZOBAC IV 3.375 GM in DEXTROSE 5% 100ML 100 ML IV SCH (03:57)
[2017-05-12 05:25] LABS: BASO % 0.4 %; BASO ABS # 0.03 K/uL (0-0.2); COMPLETE YES; EOS % 4.2 %; HEMATOCRIT 28.9 % (37-47); IG% 0.2 %; LYMPH % 19.9 %; LYMPH ABS # 1.62 K/uL (1.2-3.4); MEAN CELL VOLUME 95.1 fL (80-100); MEAN CORPUSCULAR HEMOGLOBIN 32.2 pg (25-34); MEAN CORPUSCULAR HGB CONC 33.9 g/dl (32-36); MEAN PLATELET VOLUME 9.6 fL (7.4-10.4); MONO % 7.1 %; NEUT % 68.2 %; PLATELET COUNT 190 K/uL (130-400); RED BLOOD COUNT 3.04 M/uL (4.2-5.4); WHITE BLOOD COUNT 8.14 K/uL (4.8-10.8)
[2017-05-12 06:35] LABS: BUN/CREATININE RATIO 22.9 (10-20); CALCIUM 7.4 mg/dl (8.5-10.1); CREATININE 0.25 mg/dl (0.60-1.20); POTASSIUM 3.4 mmol/L (3.5-5.1)
[2017-05-12 07:17] VITALS: BP 137/84; PULSE 107; TEMP 37.2; O2SAT 93
[2017-05-12] MEDS ORDERED: POTASSIUM CHLORIDE 20 MEQ TABCR PO SCH (08:00)
[2017-05-12] MEDS: METHYLCELLULOSE POWDER 454 GM JAR PO SCH (08:00)
[2017-05-12] MEDS: CHOLECALCIFEROL 1000 INTER.UNIT TAB PO SCH (08:06)
[2017-05-12] MEDS: LEVOFLOXACIN 750 MG TAB PO SCH (08:06)
[2017-05-12] MEDS: PANTOprazole SOD 40 MG TAB PO SCH (08:07)
[2017-05-12] MEDS: MIDODRINE 2.5 MG TAB PO SCH (08:07)
[2017-05-12] MEDS: MAGNESIUM OXIDE 400 MG TAB PO SCH (08:07)
[2017-05-12] MEDS: FERROUS SULFATE 325 MG TAB PO SCH (08:07)
[2017-05-12] MEDS: GABAPENTIN 800 MG TAB PO SCH (08:07)
[2017-05-12] MEDS: HEPARIN SOD 5000 UNIT/0.5 ML CARP SQ SCH (08:12)
[2017-05-12] MEDS ORDERED: LEVO750T23 PO (09:46)
--- NOTE | 2017-05-12 09:55 | Discharge Instructions ---
Discharge Instructions Date of Service May 12, 2017. Admission Reason for Admission: Pneumonia Discharge Discharge Diagnosis / Problem: HCAP Discharge Goals Goal(s): Decrease discomfort, Improve function, Increase independence, Improve disease control, Diagnostic testing, Therapeutic intervention, Prevent Disease Progression Activity Recommendations Activity Limitations: resume your previous activity Shower/Bathe: no limitations . Instructions / Follow-Up Instructions / Follow-Up Patient to be discharged home Found to have a pneumonia Please continue to finish taking antibiotic levaquin 750 mg tablet once a day for 5 more days If worsening fevers, chills, shortness of breath or chest pain, please report to ER Please follow up with Dr Montoya in 1-2 weeks Current Hospital Diet Patient's current hospital diet: Regular Diet Discharge Diet Recommended Diet: Regular Diet Pending Studies Studies pending at discharge: no Medical Emergencies . Who to Call and When: Medical Emergencies: If at any time you feel your situation is an emergency, please call 911 immediately. . Non-Emergent Contact Non-Emergency issues call your: Primary Care Provider Call Non-Emergent contact if: you have a fever, your pain is worsening . . "Provider Documentation" section prepared by Prince Harding. . VTE Core Measure Inpt VTE Proph given/why not?: Enoxaparin (Lovenox)SQ
[2017-05-12 10:26] VITALS: BP 137/84; PULSE 107; TEMP 37.2; O2SAT 93
[2017-05-12 11:22] LABS: LEGIONELLA ANTIGEN NOT DETECTED (NOT DETECTED)
--- NOTE | 2017-05-12 12:46 | Progress Note ---
Subjective Date of Service: May 12, 2017. Subjective Pt evaluation today including: conversation w/ patient, physical exam, chart review, lab review, review of studies, review of inpatient medication list Pt resting comfortably in bed Denies any fevers, chills, or shortness of breath or productive cough Problem List Medical Problems: (1) Altered mental status Status: Acute (2) Altered mental status Status: Acute (3) Cystitis Status: Acute (4) Dehydration Status: Acute (5) Exacerbation of multiple sclerosis Status: Acute (6) Fall at home Status: Acute (7) Femur fracture Status: Acute (8) Fever Status: Acute (9) Fracture of right hip Status: Acute (10) Headache Status: Acute (11) Hypokalemia Status: Acute (12) Intractable pain Status: Acute (13) Intractable vomiting Status: Acute (14) Migraine Status: Acute (15) Migraine Status: Acute (16) Migraine Status: Acute (17) Migraine Status: Acute (18) Migraine Status: Acute (19) Migraine Status: Acute (20) Migraine Status: Acute (21) Migraine Status: Acute (22) Migraine Status: Acute (23) Migraine Status: Acute (24) Migraine headache Status: Acute (25) Pelvis fracture, right Status: Acute (26) Pneumonia Status: Acute (27) Pneumonia Status: Acute (28) Pressure ulcer of right buttock Status: Acute (29) Status post closed fracture of right hip Status: Acute (30) UTI (urinary tract infection) Status: Acute (31) Weakness Status: Acute (32) Weakness Status: Acute Review of Systems Constitutional: No fever, No chills, No sweats, No weight loss, No weakness Eyes: No worsening of vision, No eye pain, No redness, No discharge Respiratory: No cough, No sputum, No wheezing, No shortness of breath, No dyspnea on exertion Cardiac: No chest pain, No orthopnea, No PND, No edema Abdomen: No pain, No nausea, No vomiting, No diarrhea, No constipation Musculoskeletal: No joint pain, No muscle pain, No swelling Female : No dysuria, No urinary frequency, No hematuria, No incontinence Neurologic: No memory loss, No paralysis Psychiatric: No depression symptoms, No anhedonism, No anxiety Objective Vital Signs Date Time Temp Pulse Resp B/P (MAP) Pulse Ox O2 Delivery O2 Flow Rate FiO2 6/30/17 10:26 37.2 107 20 93 Room Air 05/12/17 08:30 Room Air 05/12/17 07:17 37.2 107 20 137/84 (101) 93 Room Air 05/12/17 00:30 Room Air 05/12/17 00:12 37.2 109 17 148/97 (114) 97 Room Air 05/11/17 16:00 Room Air 05/11/17 15:40 103 16 147/95 (112) 97 Room Air Physical Exam General Appearance: WD/WN, no apparent distress Eyes: normal inspection, PERRL, EOMI, sclerae normal Neck: supple, no adenopathy, thyroid normal, no JVD Respiratory/Chest: chest non-tender, lungs clear, normal breath sounds, no respiratory distress Cardiovascular: no edema, no gallop, no JVD, no murmur Abdomen: normal bowel sounds, non tender, soft, no organomegaly Extremities: normal range of motion, non-tender, normal inspection, no calf tenderness Neurologic/Psychiatric: alert, normal mood/affect, oriented x 3, + motor weakness (residual lower ext weakness) Laboratory Results Last 24 Hours Test 05/12/17 05:03 White Blood Count 8.14 K/uL Red Blood Count 3.04 M/uL Hemoglobin 9.8 g/dL Hematocrit 28.9 % Mean Corpuscular Volume 95.1 fL Mean Corpuscular Hemoglobin 32.2 pg Mean Corpuscular Hemoglobin Concent 33.9 g/dl Platelet Count 190 K/uL Mean Platelet Volume 9.6 fL Neutrophils (%) (Auto) 68.2 % Lymphocytes (%) (Auto) 19.9 % Monocytes (%) (Auto) 7.1 % Eosinophils (%) (Auto) 4.2 % Basophils (%) (Auto) 0.4 % Neutrophils # (Auto) 5.55 K/uL Lymphocytes # (Auto) 1.62 K/uL Monocytes # (Auto) 0.58 K/uL Eosinophils # (Auto) 0.34 K/uL Basophils # (Auto) 0.03 K/uL RDW Standard Deviation 55.0 fL RDW Coefficient of Variation 15.8 % Immature Granulocyte % (Auto) 0.2 % Immature Granulocyte # (Auto) 0.02 K/uL Sodium Level 142 mmol/L Potassium Level 3.4 mmol/L Chloride Level 110 mmol/L Carbon Dioxide Level 25 mmol/L Anion Gap 7.0 mmol/L Blood Urea Nitrogen 6 mg/dl Creatinine 0.25 mg/dl Est Creatinine Clear Calc Drug Dose 144.2 ml/min Estimated GFR () 143.8 Estimated GFR (Non- 124.0 BUN/Creatinine Ratio 22.9 Random Glucose 80 mg/dl Calcium Level 7.4 mg/dl Assessment and Plan 71 year old female with PMH of MS here with a 3 day history of cough, fever and chills. Was found to have a multifocal pneumonia on CXR. Imaging shows patchy consolidation of left upper lobe and lung bases. She was recently hospitalized and therefore this would be considered a hospital acquired pneumonia. Sepsis in setting of HCAP treated with IVF with boluses and multiple IV antibiotics, resolved Suspected Staphylococcal or Gram negative pneumonia in setting of HCAP treated with IV Levofloxacin, IV Zosyn, Metabolic/septic encephalopathy in setting of HCAP and malnutrition resolved - Reviewed CXR showed multifocal patchy consolidation in left upper and lower lobes - High resolution CT of chest - diffuse multifocal parenchymal infiltrates throughout both lungs. These findings predominate in the left upper lung, as well as in the right as well as left lower lobe regions - WCC 14 -->13.91-->10-->8 - Blood cultures neg - No SOB and off O2 - IV Zosyn and IV levaquin as inpatient, discharge on levaquin 750 mg PO q daily for 5 days on discharge - IV NSS 125 mls/hr - Follow up with pulmonology as outpatient Mult sclerosis stable - Amitryptiline, gabapentin and Natalizumab (IV once monthly), has port site - Follows with Dr. Gerardo Hypotension, resolved, likely due to sepsis - continue midodrine GERD - hx of peptic ulcer with partial gastrectomy - continue pantoprazole Severe protein calorie malnutrition in setting of MS and acute illness - Cont current diet Migraine - imitrex and tramadol Depression stable - Cont mirtazapine 45 mg PO q HS Osteoporosis - Cont Alendronate DVT prophylaxis - Heparin 5000 units SC q 8 hrs Code - Full Code
[2017-05-13] MEDS ORDERED: ALENDRONATE SODIUM 70 MG TAB PO SCH (06:30)
--- NOTE | 2017-05-15 16:17 | Discharge Summary ---
Discharge Summary Date of Service May 15, 2017. Discharge Summary Admission Date: May 09, 2017 at 16:52 Discharge Date: May 12, 2017 Discharge Disposition: Home Principal Diagnosis: HCAP Immunizations: Have You Had Influenza Vaccine: Yes Influenza Vaccine Date: Sep 09, 2013 History of Tetanus Vaccine?: Yes Tetanus Immunization Date: Oct 12, 2002 History of Pneumococcal: UNSURE Pneumococcal Date: Sep 03, 2011 History of Hepatitis B Vaccine: No Medication Reconciliation New Medications: Levofloxacin (Levaquin) 750 Mg Tab 1 TAB PO DAILY for 5 Days, #5 TAB Continued Medications: Acetaminophen Tab (Tylenol) 325 Mg Tab 325 MG PO DAILY PRN for Pain or Fever Alendronate Sodium (Alendronate Sodium) 70 Mg Tab 70 MG PO WK TAKE THIS MEDICATION EVERY MONDAY. Amitriptyline Hcl (Elavil) 75 Mg Tab 75 MG PO HS TAKE THIS MEDICATION 2-3 HOURS BEFORE BEDTIME. Cholecalciferol (Vitamin D3) 1,000 Unit Tab 4000 INTER.UNIT PO DAILY Ferrous Sulfate (Ferrous Sulfate) 325 Mg Tab 325 MG PO BID Gabapentin (Gabapentin) 800 Mg Tab 800 MG PO TID Magnesium Oxide (Mag-Ox) 400 Mg Tab 400 MG PO QAM, TAB Methylcellulose (Laxative) (Citrucel) 500 Mg Tab 2000 MG PO DAILY Midodrine Hcl (Midodrine Hcl) 5 Mg Tab 5 MG PO TID Mirtazapine (Mirtazapine) 45 Mg Tab 45 MG PO HS Natalizumab (Tysabri) Unknown Strength Inj 1 DOSE IV MONTHLY Pantoprazole (Pantoprazole Sodium) 40 Mg Tab 40 MG PO BID Sumatriptan Succinate (Imitrex) 100 Mg Tab 100 MG PO UD PRN for Migraine TAKE 1 TABLET FOR MIGRAINE RELIEF, MAY REPEAT 2 HOURS LATER IF NEEDED. MAXIMUM 200 MG/DAY. Tramadol Hcl (Ultram) 50 Mg Tab 50 MG PO BID PRN for Pain, TAB Discharge Exam Review of Systems: Constitutional: No fever, No chills Eyes: No worsening of vision, No eye pain ENT: No hearing loss, No unusual epistaxis, No nasal symptoms, No sore throat Respiratory: No cough, No sputum, No wheezing, No shortness of breath Cardiovascular: No chest pain, No orthopnea, No PND, No edema Abdomen: No pain, No nausea, No vomiting, No diarrhea Musculoskeletal: No joint pain, No muscle pain, No swelling, No calf pain Genitourinary - Female: No dysuria, No urinary frequency, No urinary urgency , No urinary incontinence Neurologic: No memory loss, No paralysis, No weakness Psychiatric: No depression symptoms, No anhedonism Endocrine: No fatigue, No excessive thirst Integumentary: No rash, No itch Physical Exam: General Appearance: WD/WN, no apparent distress Eyes: normal inspection, PERRL, EOMI, sclerae normal ENT: normal ENT inspection, hearing grossly normal, TMs normal, pharynx normal Neck: supple, no adenopathy, thyroid normal, no JVD Respiratory/Chest: chest non-tender, lungs clear, normal breath sounds, no respiratory distress Cardiovascular: regular rate, rhythm, no edema, no gallop, no JVD Abdomen / GI: normal bowel sounds, non tender, soft, no organomegaly Extremities: normal inspection, no calf tenderness, normal capillary refill , no pedal edema Neurologic/Psychiatric: alert, normal mood/affect, oriented x 3, + motor weakness (residual right sided weakness) Hospital Course 71 year old female with PMH of MS here with a 3 day history of cough, fever and chills. Was found to have a multifocal pneumonia on CXR. Imaging shows patchy consolidation of left upper lobe and lung bases. She was recently hospitalized and therefore this would be considered a hospital acquired pneumonia. Sepsis in setting of HCAP treated with IVF with boluses and multiple IV antibiotics, resolved Suspected Staphylococcal or Gram negative pneumonia in setting of HCAP treated with IV Levofloxacin, IV Zosyn, Metabolic/septic encephalopathy in setting of HCAP and malnutrition resolved - Reviewed CXR showed multifocal patchy consolidation in left upper and lower lobes - High resolution CT of chest - diffuse multifocal parenchymal infiltrates throughout both lungs. These findings predominate in the left upper lung, as well as in the right as well as left lower lobe regions - WCC 14 -->13.91-->10-->8 - Blood cultures neg - No SOB and off O2 - IV Zosyn and IV levaquin as inpatient, discharge on levaquin 750 mg PO q daily for 5 days on discharge - IV NSS 125 mls/hr - Follow up with pulmonology as outpatient Mult sclerosis stable - Amitryptiline, gabapentin and Natalizumab (IV once monthly), has port site - Follows with Dr. Gerardo Hypotension, resolved, likely due to sepsis - continue midodrine GERD - hx of peptic ulcer with partial gastrectomy - continue pantoprazole Severe protein calorie malnutrition in setting of MS and acute illness - Cont current diet Migraine - imitrex and tramadol Depression stable - Cont mirtazapine 45 mg PO q HS Osteoporosis - Cont Alendronate DVT prophylaxis - Heparin 5000 units SC q 8 hrs Code - Full Code Total Time Spent: Greater than 30 minutes This includes examination of the patient, discharge planning, medication reconciliation, and communication with other providers. Discharge Instructions Please refer to the electronic Patient Visit Report (Discharge Instructions) for additional information. Additional Copies To George Montoya M.D.
[2017-06-02] MEDS ORDERED: MAGN400T6 PO (10:29)
[2017-07-22] MEDS ORDERED: METH500T3 PO (09:58)
[2017-07-22] MEDS ORDERED: PRT/40 PO (16:10)
[2017-07-22] MEDS ORDERED: NATA1INJ IV (16:15)
[2017-07-22] MEDS ORDERED: ULT/50 PO (16:39)
[2017-07-22] MEDS ORDERED: NRN800 PO (17:00)
[2017-07-22] MEDS ORDERED: AMIT75TA2 PO (17:00)
== END 2017-05-12 10:45 | disposition home or self-care (01) | DRG 871 ==
LOC: C.EDB 13:02 → C.MS4W 16:52 → ENRESERV 17:46
PROVIDERS: ADMIT Internal Medicine; ATTEND Hospitalist
DX: A41.9 Sepsis, unspecified organism (principal); N30.00 Acute cystitis without hematuria; J15.6 Pneumonia due to other Gram-negative bacteria; J15.20 Pneumonia due to staphylococcus, unspecified; G93.41 Metabolic encephalopathy; E43 Unspecified severe protein-calorie malnutrition; I10 Essential (primary) hypertension; K27.7 Chronic peptic ulcer, site unspecified, without hemorrhage or perforation; G35 Multiple sclerosis; F17.200 Nicotine dependence, unspecified, uncomplicated; E86.0 Dehydration; K21.9 Gastro-esophageal reflux disease without esophagitis; E87.6 Hypokalemia; G43.909 Migraine, unspecified, not intractable, without status migrainosus; F32.9 Major depressive disorder, single episode, unspecified; M81.0 Age-related osteoporosis without current pathological fracture; L89.319 Pressure ulcer of right buttock, unspecified stage

== ENCOUNTER 2017-06-02 20:56 | Emergency (ER) | payer OTHER ==
[~2017-06-02] VITALS: Ht 160 cm; Wt 40.0 kg
[~2017-06-02 20:56] MED LIST changes: -AMOX500C3 PO; +MAGN400T6 PO
[2017-06-02 21:01] VITALS: TEMP 36.5; Ht 160 cm; Wt 40.0 kg
[2017-06-02] MEDS ORDERED: PROCHLORPERAZINE 5 MG/ML 2 ML VIAL IM STA (21:47)
[2017-06-02] MEDS ORDERED: HYDROmorphone INJ 2 MG/ML SYR/VIAL IM STA (21:47)
[2017-06-02] MEDS ORDERED: KETOROLAC TROMETHAMINE 60 MG/2 ML VIAL IM STA (21:47)
--- NOTE | 2017-06-02 21:48 | EMERGENCY ROOM VISIT NOTE ---
History Report prepared by Fidencio: Manfred Farley Under the Supervision of: Dr. Jason Byers M.D. First contact with patient: 21:43 Chief Complaint: HEADACHE Stated Complaint: BAD HEADACHE History of Present Illness The patient is a 72 year old female who presents to the Emergency Room with complaints of a worsening migraine headache that began at lunch time today, several hours prior to arrival. The patient states that the pain is localized to the right side of her head, and that it is worsened by light. The patient has a history of migraines and claims that this episode is similar to those she has had in the past. She denies any recent falls or traumatic head injuries. She also denies any recent nausea, vomiting, or fevers. 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 A total of 10 systems reviewed and were otherwise negative. Past Medical & Surgical Medical Problems: (1) Benign hypertension (2) Chronic peptic ulcer (3) Hysterectomy (4) Intertrochanteric fracture of right hip (5) Intertrochanteric fracture of right hip (6) Migraine (7) Multiple sclerosis (8) Multiple sclerosis (9) Multiple sclerosis exacerbation (10) non cardiac chest pain related to gi (11) Sepsis (12) STAPHYLOCOCCAL SEPTICEMIA, NEC (13) UTI (urinary tract infection) Surgical Problems: (1) S/P partial gastrectomy Family History Diabetes mellitus FH: cholecystectomy FHx: heart disease Social History Smoking Status: Never Smoker Alcohol Use: none Drug Use: none Marital Status: Housing Status: lives with family Occupation Status: retired Current/Historical Medications Scheduled Alendronate Sodium (Alendronate Sodium), 70 MG PO WK Amitriptyline Hcl (Elavil), 75 MG PO HS Cholecalciferol (Vitamin D3), 4,000 INTER.UNIT PO DAILY Ferrous Sulfate (Ferrous Sulfate), 325 MG PO BID Gabapentin (Gabapentin), 800 MG PO TID Magnesium Oxide (Mag-Ox), 400 MG PO QAM Methylcellulose (Laxative) (Citrucel), 2,000 MG PO DAILY Midodrine Hcl (Midodrine Hcl), 5 MG PO TID Mirtazapine (Mirtazapine), 45 MG PO HS Natalizumab (Tysabri), 1 DOSE IV MONTHLY Pantoprazole (Pantoprazole Sodium), 40 MG PO BID Scheduled PRN Acetaminophen Tab (Tylenol), 325 MG PO DAILY PRN for Pain or Fever Sumatriptan Succinate (Imitrex), 100 MG PO UD PRN for Migraine Tramadol Hcl (Ultram), 50 MG PO BID PRN for Pain Allergies Coded Allergies: Morphine (Verified Adverse Reaction, Intermediate, " MAKES ME MEAN" - CONFUSION, 05/09/17) Physical Exam Vital Signs Date Time Temp Pulse Resp B/P (MAP) Pulse Ox O2 Delivery O2 Flow Rate FiO2 06/02/17 22:15 108 16 151/92 96 Room Air 06/02/17 21:01 36.5 120 18 123/90 96 Room Air Physical Exam GENERAL: Patient is in no acute distress. HEENT: No acute trauma, normocephalic atraumatic, mucous membranes moist, no nasal congestion, no scleral icterus. Pupils equal and reactive to light. NECK: No stridor, no adenopathy, no meningismus, trachea is midline. LUNGS: Clear to auscultation bilaterally, no wheeze, no rhonchi, breath sounds equal. HEART: Heart is mildly tachycardiac with a regular rhythm, no murmurs. ABDOMEN: Soft, nontender, bowel sounds positive, no hernias, no peritonitis. EXTREMITIES: No cyanosis or edema, full range of motion of all the joints without pain or difficulty, no signs for acute trauma. NEUROLOGIC: Oriented x 3, no acute motor or sensory deficits, no focal weakness. No cerebellar deficits. SKIN: No rash, no jaundice, no diaphoresis Medical Decision & Procedures Medications Administered Medications (Trade) Dose Ordered Sig/Melvin Route Start Time Stop Time Status Last Admin Dose Admin Prochlorperazine Edisylate (Compazine Inj) 10 mg NOW STAT IM 06/02/17 21:47 06/02/17 21:52 DC 06/02/17 22:10 10 MG Hydromorphone HCl (Dilaudid Inj) 1 mg NOW STAT IM 06/02/17 21:47 06/02/17 21:52 DC 06/02/17 22:11 1 MG Ketorolac Tromethamine (Toradol Inj) 60 mg NOW STAT IM 06/02/17 21:47 06/02/17 21:52 DC 06/02/17 22:10 60 MG ECG Indication: tachycardia Rate (beats per minute): 105 Rhythm: sinus tachycardia Findings: nonspecific-ST abn, no acute ischemic change, no ectopy ED Course 2144: The patient was evaluated in room B9. A complete history and physical exam was performed. 2146: Ordered Toradol 60 mg IM, Dilaudid 1 mg IM, Compazine 10 mg IM. 2243: I reevaluated the patient at this time. Her heart rate has dropped into the 90s. She feels good at this time. She is ready to be discharged home. Medical Decision Differential Diagnosis includes; migraine headache, tension headache, sinus tachycardia, dysrhythmia, head trauma. The patient presents complaining of a right-sided headache that she terms a migraine. There has been no head trauma. No fever. No one-sided weakness. She is not toxic or febrile and has a normal neurologic exam. There is no meningismus. She was mildly tachycardic. EKG shows a sinus tachycardia, no acute ischemia. The patient did receive IM morphine, IM Toradol and IM Compazine, she feels improved and her heart rate is now in the 90s. It appears that the tachycardia was secondary to her pain. The patient is being discharged, her headache does seem migrainous. Medication Reconcilliation Current Medication List: was personally reviewed by me Blood Pressure Screening Patient's blood pressure: Elevated blood pressure Blood pressure disposition: Elevated BP felt to be situational Impression Primary Impression: Headache Additional Impression: Tachycardia Scribe Attestation The scribe's documentation has been prepared under my direction and personally reviewed by me in its entirety. I confirm that the note above accurately reflects all work, treatment, procedures, and medical decision making performed by me. Departure Information Dispostion Home / Self-Care Referrals No Doctor, Assigned (PCP) Forms HOME CARE DOCUMENTATION FORM, IMPORTANT VISIT INFORMATION Patient Instructions My [facility] Additional Instructions rest fluids sleep return if worsening Problem Qualifiers
[2017-06-02] MEDS ORDERED: HYDROmorphone INJ 1 MG/ML SYR ONE (22:07)
[2017-06-02 23:09] VITALS: BP 145/99; PULSE 98; O2SAT 96
[2017-07-22] MEDS ORDERED: METH500T3 PO (09:58)
[2017-07-22] MEDS ORDERED: PRT/40 PO (16:10)
[2017-07-22] MEDS ORDERED: NATA1INJ IV (16:15)
[2017-07-22] MEDS ORDERED: ULT/50 PO (16:39)
[2017-07-22] MEDS ORDERED: NRN800 PO (17:00)
[2017-07-22] MEDS ORDERED: AMIT75TA2 PO (17:00)
[2017-08-25] MEDS ORDERED: PRED10TA PO (16:06)
[2017-08-25] MEDS ORDERED: LORA-741 PO (16:06)
[2017-08-25] MEDS ORDERED: ULT/50 PO (16:06)
== END 2017-06-02 23:09 | disposition home or self-care (01) ==
LOC: C.EDB 20:58
DX: R51 Headache (principal); R00.0 Tachycardia, unspecified; I10 Essential (primary) hypertension; G35 Multiple sclerosis; Z87.11 Personal history of peptic ulcer disease; Z87.440 Personal history of urinary (tract) infections; Z87.81 Personal history of (healed) traumatic fracture; Z90.710 Acquired absence of both cervix and uterus; Z79.899 Other long term (current) drug therapy; Z90.49 Acquired absence of other specified parts of digestive tract; Z88.5 Allergy status to narcotic agent; Z83.3 Family history of diabetes mellitus; Z83.79 Family history of other diseases of the digestive system; Z82.49 Family history of ischemic heart disease and other diseases of the circulatory system

== ENCOUNTER 2017-06-17 17:23 | Inpatient (IN) | payer OTHER ==
[~2017-06-17] VITALS: Ht 160 cm; Wt 40.0 kg
[2017-06-17] MEDS ORDERED: HYDROmorphone INJ 1 MG/ML SYR IV STA (17:53)
--- NOTE | 2017-06-17 18:08 | EMERGENCY ROOM VISIT NOTE ---
History First contact with patient: 17:42 Chief Complaint: HEADACHE Stated Complaint: MIGRAINE History of Present Illness The patient is a 72 year old female who presents to the Emergency Room with complaints of headache. The patient states that she has a headache since around 1 PM today. The patient states it feels like her typical migraines. The patient took Imitrex but it did not help. She rates her discomfort a 9/10. She denies any fevers or chills. She denies any pain in her chest or trouble breathing. She reports nausea but denies vomiting. She denies any numbness, tingling or weakness in the upper or lower extremities. The patient was admitted at the end of April for pneumonia and sepsis. She finished her course of antibiotics. Review of Systems A 10 system review of systems was completed with positives and pertinent negatives listed in the HPI. Past Medical/Surgical History Medical Problems: (1) Benign hypertension (2) Chronic peptic ulcer (3) Hysterectomy (4) Intertrochanteric fracture of right hip (5) Intertrochanteric fracture of right hip (6) Migraine (7) Multiple sclerosis (8) Multiple sclerosis (9) Multiple sclerosis exacerbation (10) non cardiac chest pain related to gi (11) Sepsis (12) STAPHYLOCOCCAL SEPTICEMIA, NEC (13) UTI (urinary tract infection) Surgical Problems: (1) S/P partial gastrectomy Family History Diabetes mellitus FH: cholecystectomy FHx: heart disease Social History Smoking Status: Former Smoker Alcohol Use: none Drug Use: none Marital Status: Housing Status: lives with family Occupation Status: retired Current/Historical Medications Scheduled Alendronate Sodium (Alendronate Sodium), 70 MG PO WK Amitriptyline Hcl (Elavil), 75 MG PO HS Cholecalciferol (Vitamin D3), 4,000 INTER.UNIT PO TID Ferrous Sulfate (Ferrous Sulfate), 325 MG PO BID Gabapentin (Gabapentin), 800 MG PO TID Magnesium Oxide (Mag-Ox), 400 MG PO QAM Methylcellulose (Laxative) (Citrucel), 2,000 MG PO QAM Midodrine Hcl (Midodrine Hcl), 5 MG PO TID Mirtazapine (Mirtazapine), 45 MG PO HS Natalizumab (Tysabri), 1 DOSE IV MONTHLY Pantoprazole (Pantoprazole Sodium), 40 MG PO BID Scheduled PRN Acetaminophen Tab (Tylenol), 325 MG PO DAILY PRN for Pain or Fever Sumatriptan Succinate (Imitrex), 100 MG PO UD PRN for Migraine Tramadol Hcl (Ultram), 50 MG PO BID PRN for Pain Physical Exam Vital Signs Date Time Temp Pulse Resp B/P (MAP) Pulse Ox O2 Delivery O2 Flow Rate FiO2 06/17/17 21:35 100 06/17/17 21:23 93 17 97 06/17/17 21:18 95 17 97 06/17/17 21:13 97 20 100 06/17/17 21:08 102 18 99 06/17/17 21:07 166/97 06/17/17 21:07 100 16 166/97 97 Room Air 06/17/17 21:03 102 20 97 06/17/17 20:58 100 18 97 06/17/17 20:53 102 18 97 06/17/17 20:48 105 16 98 06/17/17 20:43 100 19 96 06/17/17 20:38 92 18 98 06/17/17 20:33 93 19 97 06/17/17 20:28 108 23 97 06/17/17 20:23 106 17 97 06/17/17 20:18 105 18 98 06/17/17 20:13 107 16 98 06/17/17 20:08 107 23 89 06/17/17 20:03 107 22 97 06/17/17 19:58 106 18 100 06/17/17 19:53 103 17 97 06/17/17 19:48 105 19 96 06/17/17 19:43 106 17 98 06/17/17 19:38 106 20 97 06/17/17 19:33 104 17 97 06/17/17 19:28 106 15 96 06/17/17 19:23 108 18 96 06/17/17 19:21 177/114 06/17/17 19:18 110 17 96 06/17/17 19:13 107 13 95 Room Air 06/17/17 19:08 109 15 96 06/17/17 19:03 110 17 96 06/17/17 18:58 110 14 94 06/17/17 18:53 109 20 06/17/17 18:48 108 18 06/17/17 18:43 109 19 06/17/17 18:38 111 19 06/17/17 18:33 114 25 06/17/17 18:28 114 20 06/17/17 18:23 113 20 06/17/17 18:18 112 18 06/17/17 18:13 127 23 06/17/17 18:08 115 17 06/17/17 18:03 115 21 06/17/17 17:58 119 31 06/17/17 17:53 115 19 06/17/17 17:48 122 34 06/17/17 17:43 120 21 06/17/17 17:38 124 21 06/17/17 17:36 125 06/17/17 17:26 36.4 140 18 107/85 96 Room Air Physical Exam VITALS: Vitals are noted on the nurse's note and reviewed by myself. The patient is tachycardic with heart rate 140 bpm. GENERAL: The patient is cachectic in appearance. She is frail, in no acute distress, nondiaphoretic, well-developed well-nourished. SKIN: The skin was without rashes, erythema, edema, or bruising. There is no tenting of the skin. Capillary reflex less than 2 seconds. HEAD: Normocephalic atraumatic. EARS: External auditory canals clear, tympanic membranes pearly guerrero without erythema or effusion bilaterally. EYES: Pupils equal round and reactive to light and accommodation. Conjunctivae without injection, sclerae without icterus. Extraocular movements intact. NOSE: Patent, turbinates without inflammation or discharge. MOUTH: Mucous membranes moist. Tonsils are not enlarged. Pharynx without erythema or exudate. Uvula midline. Airway patent. Tongue does not deviate. NECK: Supple without nuchal rigidity. No JVD. HEART: Regular rate, regular rhythm. LUNGS: There are rales noted throughout the left lung marcos. No retractions or accessory muscle use. ABDOMEN: Positive bowel sounds x 4. Soft, nontender, without masses or organomegaly. MUSCULOSKELETAL: No muscle atrophy, erythema, or edema noted. Full range of motion in all extremities. Strength 5/5 throughout. NEURO: Patient was alert and oriented to person place and time. No focal neurological deficits. Medical Decision & Procedures ER Provider Diagnostic Interpretation: CHEST ONE VIEW PORTABLE CLINICAL HISTORY: cough, tachycardia COMPARISON STUDY: 05/09/2017 FINDINGS: The heart is normal in size. There is no failure. There is been near complete interval resolution of the preceding identified left upper lung zone airspace opacities. There is a left-sided A-Port catheter unchanged in position. There is evidence for posterior spinal rods.[ IMPRESSION: Near complete interval resolution of the previously described pulmonary airspace opacities with only minimal left upper lung zone residual. No acute findings. Laboratory Results 06/17/17 18:04 Red Blood Count 4.86, Mean Corpuscular Volume 95.7, Mean Corpuscular Hemoglobin 32.3, Mean Corpuscular Hemoglobin Concent 33.8, Mean Platelet Volume 10.3, Neutrophils (%) (Auto) 46.0, Lymphocytes (%) (Auto) 41.9, Monocytes (%) (Auto) 9.3, Eosinophils (%) (Auto) 2.1, Basophils (%) (Auto) 0.6, Neutrophils # (Auto) 3.99, Lymphocytes # (Auto) 3.64, Monocytes # (Auto) 0.81, Eosinophils # (Auto) 0.18, Basophils # (Auto) 0.05 06/17/17 18:04 Test 06/17/17 18:04 06/17/17 20:00 White Blood Count 8.68 K/uL (4.8-10.8) Red Blood Count 4.86 M/uL (4.2-5.4) Hemoglobin 15.7 g/dL (12.0-16.0) Hematocrit 46.5 % (37-47) Mean Corpuscular Volume 95.7 fL (80-100) Mean Corpuscular Hemoglobin 32.3 pg (25-34) Mean Corpuscular Hemoglobin Concent 33.8 g/dl (32-36) Platelet Count 258 K/uL (130-400) Mean Platelet Volume 10.3 fL (7.4-10.4) Neutrophils (%) (Auto) 46.0 % Lymphocytes (%) (Auto) 41.9 % Monocytes (%) (Auto) 9.3 % Eosinophils (%) (Auto) 2.1 % Basophils (%) (Auto) 0.6 % Neutrophils # (Auto) 3.99 K/uL (1.4-6.5) Lymphocytes # (Auto) 3.64 K/uL (1.2-3.4) Monocytes # (Auto) 0.81 K/uL (0.11-0.59) Eosinophils # (Auto) 0.18 K/uL (0-0.5) Basophils # (Auto) 0.05 K/uL (0-0.2) RDW Standard Deviation 50.9 fL (36.4-46.3) RDW Coefficient of Variation 14.4 % (11.5-14.5) Immature Granulocyte % (Auto) 0.1 % Immature Granulocyte # (Auto) 0.01 K/uL (0.00-0.02) Anion Gap 4.0 mmol/L (3-11) Est Creatinine Clear Calc Drug Dose 50.1 ml/min Estimated GFR () 103.7 Estimated GFR (Non- 89.5 BUN/Creatinine Ratio 26.8 (10-20) Lactic Acid Level 1.8 mmol/L (0.4-2.0) Calcium Level 8.8 mg/dl (8.5-10.1) Magnesium Level 2.0 mg/dl (1.8-2.4) Total Bilirubin 0.2 mg/dl (0.2-1) Aspartate Amino Transf (AST/SGOT) 36 U/L (15-37) Alanine Aminotransferase (ALT/SGPT) 110 U/L (12-78) Alkaline Phosphatase 380 U/L (45-117) Troponin I < 0.015 ng/ml (0-0.045) Total Protein 6.0 gm/dl (6.4-8.2) Albumin 2.7 gm/dl (3.4-5.0) Globulin 3.3 gm/dl (2.5-4.0) Albumin/Globulin Ratio 0.8 (0.9-2) Urine Color YELLOW Urine Appearance CLOUDY (CLEAR) Urine pH 7.5 (4.5-7.5) Urine Specific [place] 1.015 (1.000-1.030) Urine Protein NEG (NEG) Urine Glucose (UA) NEG (NEG) Urine Ketones NEG (NEG) Urine Occult Blood TRACE (NEG) Urine Nitrite NEG (NEG) Urine Bilirubin NEG (NEG) Urine Urobilinogen NEG (NEG) Urine Leukocyte Esterase LARGE (NEG) Urine WBC (Auto) >30 /hpf (0-5) Urine RBC (Auto) 0-4 /hpf (0-4) Urine Hyaline Casts (Auto) 1-5 /lpf (0-5) Urine Epithelial Cells (Auto) 0-5 /lpf (0-5) Urine Bacteria (Auto) 1+ (NEG) Medications Administered Medications (Trade) Dose Ordered Sig/Melvin Route Start Time Stop Time Status Last Admin Dose Admin Hydromorphone HCl (Dilaudid Inj) 1 mg NOW STAT IV 06/17/17 17:53 06/17/17 17:54 DC 06/17/17 18:56 1 MG Sodium Chloride 1,000 ml @ 999 mls/hr Q1H1M STAT IV 06/17/17 18:50 06/17/17 19:50 DC 06/17/17 18:56 999 MLS/HR Ketorolac Tromethamine (Toradol Inj) 30 mg NOW STAT IV 06/17/17 19:05 06/17/17 19:06 DC 06/17/17 19:25 30 MG Sodium Chloride 1,000 ml @ 999 mls/hr Q1H1M STAT IV 06/17/17 19:30 06/17/17 20:30 DC 06/17/17 21:21 999 MLS/HR Piperacillin Sod/ Tazobactam Sod (Zosyn Iv) 3.375 gm NOW STAT IV 06/17/17 21:05 06/17/17 21:06 DC 06/17/17 21:23 3.375 GM Procedure The patient was monitored on a cardiac cath tech. She had persistent sinus tachycardia with occasional PVCs ECG Indication: nausea Rate (beats per minute): 114 Rhythm: sinus tachycardia Findings: nonspecific-ST abn Change: no significant change ED Course The patient was seen and examined. Previous visits were reviewed. The patient does not have a fever or leukocytosis. She does not have any significant electrolyte abnormalities. Lactic acid is not elevated. ALT is elevated at 110. Alkaline phosphatase is elevated at 380. Troponin is not elevated. Urinalysis suggests urinary tract infection. Blood cultures and urine cultures are pending. EKG revealed a sinus tachycardia. The patient does seem to have rate-related demand ischemia which is consistent with previous EKGs. She has nonspecific ST- T wave changes in the lateral leads. She does not have any elevation in troponin. She does not have any complaints of chest pain. The patient complains of a migraine headache which she states is quite typical for her. She was given 1 mg IV Dilaudid and 30 mg IV Toradol with improvement in her discomfort. The patient was hydrated with normal saline 2 L. The patient presents to the emergency department with headache. She was found to be tachycardic with a heart rate of 140 bpm on initial evaluation. The patient does appear to have a urinary tract infection. She is afebrile, without leukocytosis or elevation and lactic acid. However, the patient has multiple comorbidities including multiple sclerosis. She was recently admitted for sepsis secondary to pneumonia. The patient was ordered IV Zosyn. The patient would benefit from further evaluation and management by the hospitalist service. The [facility] physician group hospitalist service was contacted and they will evaluated the patient. The patient was also seen and examined by Dr. Guadarrama who agrees with the assessment and treatment plan. Medical Decision DIFFERENTIAL DIAGNOSIS: Aortic dissection, myocarditis, pericarditis, cervical disc disease, costochondritis, herpes zoster, rib fracture, pleuritis, pneumonia , pulmonary embolus, tension pneumothorax, anxiety disorder, somatoform disorder , choledocholithiasis, status, esophagitis, esophageal spasm, esophageal reflux , esophageal rupture, pancreatitis, peptic ulcer disease, cardiac ischemia, ST elevation NV, acute coronary syndrome, arrhythmia, coronary artery vasospasm. vavular heart disease, coronary artery disease, among others. Medication Reconcilliation Current Medication List: was personally reviewed by ga Blood Pressure Screening Patient's blood pressure: Elevated blood pressure Blood pressure disposition: Referred to PCP Impression Primary Impression: Headache Additional Impressions: Urinary tract infection Tachycardia Departure Information Referrals George Montoya M.D. (PCP) Patient Instructions [facility] Problem Qualifiers
[2017-06-17 18:15] LABS: BASO % 0.6 %; BASO ABS # 0.05 K/uL (0-0.2); COMPLETE YES; EOS % 2.1 %; HEMATOCRIT 46.5 % (37-47); IG% 0.1 %; LYMPH % 41.9 %; LYMPH ABS # 3.64 K/uL (1.2-3.4); MEAN CELL VOLUME 95.7 fL (80-100); MEAN CORPUSCULAR HEMOGLOBIN 32.3 pg (25-34); MEAN CORPUSCULAR HGB CONC 33.8 g/dl (32-36); MEAN PLATELET VOLUME 10.3 fL (7.4-10.4); MONO % 9.3 %; PLATELET COUNT 258 K/uL (130-400); RED BLOOD COUNT 4.86 M/uL (4.2-5.4); WHITE BLOOD COUNT 8.68 K/uL (4.8-10.8)
--- NOTE | 2017-06-17 18:24 | DIAGNOSTIC IMAGING REPORT ---
CHEST ONE VIEW PORTABLE CLINICAL HISTORY: cough, tachycardia COMPARISON STUDY: 05/09/2017 FINDINGS: The heart is normal in size. There is no failure. There is been near complete interval resolution of the preceding identified left upper lung zone airspace opacities. There is a left-sided A-Port catheter unchanged in position. There is evidence for posterior spinal rods.[ IMPRESSION: Near complete interval resolution of the previously described pulmonary airspace opacities with only minimal left upper lung zone residual. No acute findings. Electronically signed by: Rommel Mary M.D. 06/17/2017 6:23 PM Dictated Date/Time: 06/17/2017 6:21 PM
[2017-06-17 18:33] LABS: ALT/SGPT 110 U/L (12-78); BLOOD UREA NITROGEN 18 mg/dl (7-18); BUN/CREATININE RATIO 26.8 (10-20); CALCIUM 8.8 mg/dl (8.5-10.1); CARBON DIOXIDE 32 mmol/L (21-32); CHLORIDE 104 mmol/L (98-107); CREATININE 0.66 mg/dl (0.60-1.20); GLUCOSE 86 mg/dl (70-99); POTASSIUM 3.2 mmol/L (3.5-5.1); SODIUM 140 mmol/L (136-145)
[2017-06-17 18:38] LABS: ALB/GLOB RATIO 0.8 (0.9-2); ALKALINE PHOSPHATASE 380 U/L (45-117); AST/SGOT 36 U/L (15-37)
[2017-06-17] MEDS ORDERED: SODIUM CHLORIDE 0.9% 1000ML 1,000 ML IV STA ×2 (18:50→19:30)
[2017-06-17] MEDS ORDERED: KETOROLAC TROMETHAMINE 30 MG/ML VIAL IV STA (19:05)
[2017-06-17 20:23] LABS: URINE APPEARANCE CLOUDY (CLEAR); URINE BILIRUBIN NEG (NEG); URINE COLOR YELLOW; URINE EPITHELIAL CELL AUTO 0-5 /lpf (0-5); URINE NITRITE NEG (NEG); URINE PH 7.5 (4.5-7.5); URINE SPECIFIC GRAVITY 1.015 (1.000-1.030); UROBILINOGEN NEG (NEG); ZZUR CULT IF INDIC CLEAN CATCH YES
[2017-06-17 20:47] LABS: MANUAL MICROSCOPIC REQUIRED? NO; REVIEW REQ? NO
[2017-06-17] MEDS ORDERED: PIPERACILLIN/TAZOBACTAM 3.375 GM/100ML D5W IV STA (21:05)
--- NOTE | 2017-06-17 21:20 | EMERGENCY ROOM VISIT NOTE ---
ED Visit Note First contact with patient: 17:42 HPI: Headache and nausea starting this afternoon. PE: Uncomfortable, tachycardic to the 140s, cachectic appearing NC/AT Dry mucous membranes, no erythema or edema in the posterior pharynx ST, no murmurs CTAB Abd soft NT/ND Ext: no edema, erythema Neuro: At baseline Plan: Patient is a 72-year-old woman with a complicated past medical history of multiple sclerosis and recent admission for sepsis presenting with headache and nausea per PA note. Patient appears significantly dry on exam. IV fluids administered. Considering the patient's presentation of setting of recent sepsis patient was cultured and infectious workup was done. Chest x-ray unremarkable. White count and lactate was within normal limits. BUN/ creatinine 26.8 consistent with the patient's clinically dry exam. UA grossly positive for UTI in the setting of history of resistant organisms. We will empirically cover broadly admit patient for further management. I reviewed the patient's past medical history, medications, and visit nursing notes. I discussed the case with the physician assistant family teacher, examined the patient, and agree with the findings and plan as documented in the physician assistants note. Problem List Medical Problems: (1) Benign hypertension Status: Chronic (2) Chronic peptic ulcer Status: Chronic (3) Hysterectomy Status: Resolved (4) Migraine Status: Chronic (5) Multiple sclerosis Status: Chronic (6) Multiple sclerosis Status: Chronic (7) Sepsis Status: Resolved (8) STAPHYLOCOCCAL SEPTICEMIA, NEC Status: Resolved Surgical Problems: (1) S/P partial gastrectomy Status: Chronic Current/Historical Medications Scheduled Alendronate Sodium (Alendronate Sodium), 70 MG PO WK Amitriptyline Hcl (Elavil), 75 MG PO HS Cholecalciferol (Vitamin D3), 4,000 INTER.UNIT PO TID Ferrous Sulfate (Ferrous Sulfate), 325 MG PO BID Gabapentin (Gabapentin), 800 MG PO TID Magnesium Oxide (Mag-Ox), 400 MG PO QAM Methylcellulose (Laxative) (Citrucel), 2,000 MG PO QAM Midodrine Hcl (Midodrine Hcl), 5 MG PO TID Mirtazapine (Mirtazapine), 45 MG PO HS Natalizumab (Tysabri), 1 DOSE IV MONTHLY Nitrofurantoin Monohyd Macrocr (Macrobid), 100 MG PO BID Pantoprazole (Pantoprazole Sodium), 40 MG PO BID Scheduled PRN Acetaminophen Tab (Tylenol), 325 MG PO DAILY PRN for Pain or Fever Sumatriptan Succinate (Imitrex), 100 MG PO UD PRN for Migraine Tramadol Hcl (Ultram), 50 MG PO BID PRN for Pain Allergies Coded Allergies: Morphine (Verified Adverse Reaction, Intermediate, " MAKES ME MEAN" - CONFUSION, 06/17/17) Vital Signs Date Time Temp Pulse Resp B/P (MAP) Pulse Ox O2 Delivery O2 Flow Rate FiO2 06/17/17 21:58 81 19 94 06/17/17 21:35 100 06/17/17 21:28 97 20 97 06/17/17 21:23 93 17 97 06/17/17 21:18 95 17 97 06/17/17 21:13 97 20 100 06/17/17 21:08 102 18 99 06/17/17 21:07 166/97 06/17/17 21:07 100 16 166/97 97 Room Air 06/17/17 21:03 102 20 97 06/17/17 20:58 100 18 97 06/17/17 20:53 102 18 97 06/17/17 20:48 105 16 98 06/17/17 20:43 100 19 96 06/17/17 20:38 92 18 98 06/17/17 20:33 93 19 97 06/17/17 20:28 108 23 97 06/17/17 20:23 106 17 97 06/17/17 20:18 105 18 98 06/17/17 20:13 107 16 98 06/17/17 20:08 107 23 89 06/17/17 20:03 107 22 97 06/17/17 19:58 106 18 100 06/17/17 19:53 103 17 97 06/17/17 19:48 105 19 96 06/17/17 19:43 106 17 98 06/17/17 19:38 106 20 97 06/17/17 19:33 104 17 97 06/17/17 19:28 106 15 96 06/17/17 19:23 108 18 96 06/17/17 19:21 177/114 06/17/17 19:18 110 17 96 06/17/17 19:13 107 13 95 Room Air 06/17/17 19:08 109 15 96 06/17/17 19:03 110 17 96 06/17/17 18:58 110 14 94 06/17/17 18:53 109 20 06/17/17 18:48 108 18 06/17/17 18:43 109 19 06/17/17 18:38 111 19 06/17/17 18:33 114 25 06/17/17 18:28 114 20 06/17/17 18:23 113 20 06/17/17 18:18 112 18 06/17/17 18:13 127 23 06/17/17 18:08 115 17 06/17/17 18:03 115 21 06/17/17 17:58 119 31 06/17/17 17:53 115 19 06/17/17 17:48 122 34 06/17/17 17:43 120 21 06/17/17 17:38 124 21 06/17/17 17:36 125 06/17/17 17:26 36.4 140 18 107/85 96 Room Air Laboratory Results Test 06/17/17 18:04 06/17/17 20:00 Lactic Acid Level 1.8 mmol/L (0.4-2.0) Magnesium Level 2.0 mg/dl (1.8-2.4) Troponin I < 0.015 ng/ml (0-0.045) Urine Color YELLOW Urine Appearance CLOUDY (CLEAR) Urine pH 7.5 (4.5-7.5) Urine Specific [place] 1.015 (1.000-1.030) Urine Protein NEG (NEG) Urine Glucose (UA) NEG (NEG) Urine Ketones NEG (NEG) Urine Occult Blood TRACE (NEG) Urine Nitrite NEG (NEG) Urine Bilirubin NEG (NEG) Urine Urobilinogen NEG (NEG) Urine Leukocyte Esterase LARGE (NEG) Urine WBC (Auto) >30 /hpf (0-5) Urine RBC (Auto) 0-4 /hpf (0-4) Urine Hyaline Casts (Auto) 1-5 /lpf (0-5) Urine Epithelial Cells (Auto) 0-5 /lpf (0-5) Urine Bacteria (Auto) 1+ (NEG) Medications Administered Medications (Trade) Dose Ordered Sig/Melvin Route Start Time Stop Time Status Last Admin Dose Admin Hydromorphone HCl (Dilaudid Inj) 1 mg NOW STAT IV 06/17/17 17:53 06/17/17 17:54 DC 06/17/17 18:56 1 MG Sodium Chloride 1,000 ml @ 999 mls/hr Q1H1M STAT IV 06/17/17 18:50 06/17/17 19:50 DC 06/17/17 18:56 999 MLS/HR Ketorolac Tromethamine (Toradol Inj) 30 mg NOW STAT IV 06/17/17 19:05 06/17/17 19:06 DC 06/17/17 19:25 30 MG Sodium Chloride 1,000 ml @ 999 mls/hr Q1H1M STAT IV 06/17/17 19:30 06/17/17 20:30 DC 06/17/17 21:21 999 MLS/HR Piperacillin Sod/ Tazobactam Sod (Zosyn Iv) 3.375 gm NOW STAT IV 06/17/17 21:05 06/17/17 21:06 DC 06/17/17 21:23 3.375 GM Departure Information Prescriptions Nitrofurantoin Monohyd Macrocr (Macrobid) 100 Mg Cap 100 MG PO BID for 5 Days, #10 CAP Prov: Geovany Guerrero M.D. 06/19/17 Referrals George Montoya M.D. (PCP) Patient Instructions [facility]
[2017-06-17] MEDS ORDERED: ACETAMINOPHEN 325 MG TAB PO PRN (22:00)
[2017-06-17] MEDS ORDERED: ALUMINUM/MAGNESIUM/SIMETH (MAALOX MAX) 30 ML UDC PO PRN (22:00)
[2017-06-17] MEDS ORDERED: MAGNESIUM HYDROXIDE SUSP 30 ML UDC PO PRN (22:00)
[2017-06-17] MEDS ORDERED: ONDANSETRON INJ 2 MG/ML 2 ML VIAL IV PRN (22:00)
[2017-06-17] MEDS ORDERED: TRAMADOL HCL 50 MG TAB PO PRN (22:15)
[2017-06-17] MEDS ORDERED: PIPERACILL/TAZOBAC CONSULT ACTIVE PRN (22:45)
[2017-06-17 22:59] VITALS: O2SAT 96
[2017-06-17] MEDS ORDERED: POLYETHYLENE (MIRALAX) 17 GM PACK PO PRN (23:00)
--- NOTE | 2017-06-17 23:22 | History and Physical ---
History & Physical Date & Time of Service: Jun 17, 2017 at 23:05 Chief Complaint: Migraine Primary Care Physician: George Montoya M.D. History of Present Illness Source: patient This is a 72 year old female with a background history of MS, Migraines, GERD, PUD and orthostatic hypotension, who presents to the ED with migraine. She is a frequent patient in the ED for this complaint. Today she notes experiencing one of her typical migraines. She describes a stabbing 9/10 pain in her right templar area. She was treated with Dilaudid IV and Toradol and her migraine has improved to 5/10. Incidentally, a UA was remarkable for Leukocyte esterase, without nitrites. She does have a history of frequent urinary tract infections. She was found to be tacchycardic in the ED and she was admitted for UTI management. Symptomatically, she denies any dysuria or urinary frequency. She reports chronic urinary incontinence secondary to her sequelae of her MS. She denies fevers, chills or nightsweats. Her appetite has been at baseline and she has had normal bowel movements. She denies shortness or breath, wheezing or chest pain. She has a Port and denies any worsening erythema or tenderness around the port-site. Past Medical/Surgical History Medical Problems: (1) Benign hypertension Status: Chronic (2) Chronic peptic ulcer Status: Chronic (3) Hysterectomy Status: Resolved (4) Migraine Status: Chronic (5) Multiple sclerosis Status: Chronic (6) Multiple sclerosis Status: Chronic (7) Sepsis Status: Resolved (8) STAPHYLOCOCCAL SEPTICEMIA, NEC Status: Resolved Surgical Problems: (1) S/P partial gastrectomy Status: Chronic Cholecystectomy Family History Diabetes mellitus FH: cholecystectomy FHx: heart disease Social History Smoking Status: Former Smoker Smokeless Tobacco Use: No Alcohol Use: none Drug Use: none Marital Status: Housing status: lives with family Occupational Status: retired Immunizations History of Influenza Vaccine: Yes Influenza Vaccine Date: Sep 09, 2013 History of Tetanus Vaccine?: Yes Tetanus Immunization Date: Oct 12, 2002 History of Pneumococcal: UNSURE Pneumococcal Date: Sep 03, 2011 History of Hepatitis B Vaccine: No 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 Allergies Coded Allergies: Morphine (Verified Adverse Reaction, Intermediate, " MAKES ME MEAN" - CONFUSION, 06/17/17) Home Medications Scheduled Alendronate Sodium (Alendronate Sodium), 70 MG PO WK Amitriptyline Hcl (Elavil), 75 MG PO HS Cholecalciferol (Vitamin D3), 4,000 INTER.UNIT PO TID Ferrous Sulfate (Ferrous Sulfate), 325 MG PO BID Gabapentin (Gabapentin), 800 MG PO TID Magnesium Oxide (Mag-Ox), 400 MG PO QAM Methylcellulose (Laxative) (Citrucel), 2,000 MG PO QAM Midodrine Hcl (Midodrine Hcl), 5 MG PO TID Mirtazapine (Mirtazapine), 45 MG PO HS Natalizumab (Tysabri), 1 DOSE IV MONTHLY Pantoprazole (Pantoprazole Sodium), 40 MG PO BID Scheduled PRN Acetaminophen Tab (Tylenol), 325 MG PO DAILY PRN for Pain or Fever Sumatriptan Succinate (Imitrex), 100 MG PO UD PRN for Migraine Tramadol Hcl (Ultram), 50 MG PO BID PRN for Pain Review of Systems A 10 point review of systems was negative unless stated above. Physical Exam Vital Signs Date Time Temp Pulse Resp B/P (MAP) Pulse Ox O2 Delivery O2 Flow Rate FiO2 06/17/17 22:59 36.4 94 17 151/92 96 06/17/17 22:28 94 17 151/92 96 Room Air 06/17/17 21:58 81 19 94 06/17/17 21:35 100 06/17/17 21:28 97 20 97 06/17/17 21:23 93 17 97 06/17/17 21:18 95 17 97 06/17/17 21:13 97 20 100 06/17/17 21:08 102 18 99 06/17/17 21:07 166/97 06/17/17 21:07 100 16 166/97 97 Room Air 06/17/17 21:03 102 20 97 06/17/17 20:58 100 18 97 06/17/17 20:53 102 18 97 06/17/17 20:48 105 16 98 06/17/17 20:43 100 19 96 06/17/17 20:38 92 18 98 06/17/17 20:33 93 19 97 06/17/17 20:28 108 23 97 06/17/17 20:23 106 17 97 06/17/17 20:18 105 18 98 06/17/17 20:13 107 16 98 06/17/17 20:08 107 23 89 06/17/17 20:03 107 22 97 06/17/17 19:58 106 18 100 06/17/17 19:53 103 17 97 06/17/17 19:48 105 19 96 06/17/17 19:43 106 17 98 06/17/17 19:38 106 20 97 06/17/17 19:33 104 17 97 06/17/17 19:28 106 15 96 06/17/17 19:23 108 18 96 06/17/17 19:21 177/114 06/17/17 19:18 110 17 96 06/17/17 19:13 107 13 95 Room Air 06/17/17 19:08 109 15 96 06/17/17 19:03 110 17 96 06/17/17 18:58 110 14 94 06/17/17 18:53 109 20 06/17/17 18:48 108 18 06/17/17 18:43 109 19 06/17/17 18:38 111 19 06/17/17 18:33 114 25 06/17/17 18:28 114 20 06/17/17 18:23 113 20 06/17/17 18:18 112 18 06/17/17 18:13 127 23 06/17/17 18:08 115 17 06/17/17 18:03 115 21 06/17/17 17:58 119 31 06/17/17 17:53 115 19 06/17/17 17:48 122 34 06/17/17 17:43 120 21 06/17/17 17:38 124 21 06/17/17 17:36 125 06/17/17 17:26 36.4 140 18 107/85 96 Room Air General Appearance: WD/WN, no apparent distress, + thin Head: normocephalic, atraumatic Eyes: normal inspection, EOMI ENT: hearing grossly normal, pharynx normal Neck: supple, no adenopathy, no JVD Respiratory/Chest: lungs clear, no respiratory distress Cardiovascular: regular rate, rhythm, no gallop, no murmur Abdomen/GI: normal bowel sounds, non tender, soft Back: no CVA tenderness, no muscle spasm Extremities/Musculoskelatal: no calf tenderness, no pedal edema Neurologic/Psych: alert, normal mood/affect, oriented x 3 Skin: normal color, warm/dry, no rash Lymphatic: no adenopathy Diagnostics Laboratory Results Results Past 24 Hours Test 06/17/17 18:04 06/17/17 20:00 Range/Units White Blood Count 8.68 4.8-10.8 K/uL Red Blood Count 4.86 4.2-5.4 M/uL Hemoglobin 15.7 12.0-16.0 g/dL Hematocrit 46.5 37-47 % Mean Corpuscular Volume 95.7 80-100 fL Mean Corpuscular Hemoglobin 32.3 25-34 pg Mean Corpuscular Hemoglobin Concent 33.8 32-36 g/dl Platelet Count 258 130-400 K/uL Mean Platelet Volume 10.3 7.4-10.4 fL Neutrophils (%) (Auto) 46.0 % Lymphocytes (%) (Auto) 41.9 % Monocytes (%) (Auto) 9.3 % Eosinophils (%) (Auto) 2.1 % Basophils (%) (Auto) 0.6 % Neutrophils # (Auto) 3.99 1.4-6.5 K/uL Lymphocytes # (Auto) 3.64 1.2-3.4 K/uL Monocytes # (Auto) 0.81 0.11-0.59 K/uL Eosinophils # (Auto) 0.18 0-0.5 K/uL Basophils # (Auto) 0.05 0-0.2 K/uL RDW Standard Deviation 50.9 36.4-46.3 fL RDW Coefficient of Variation 14.4 11.5-14.5 % Immature Granulocyte % (Auto) 0.1 % Immature Granulocyte # (Auto) 0.01 0.00-0.02 K/uL Sodium Level 140 136-145 mmol/L Potassium Level 3.2 3.5-5.1 mmol/L Chloride Level 104 98-107 mmol/L Carbon Dioxide Level 32 21-32 mmol/L Anion Gap 4.0 3-11 mmol/L Blood Urea Nitrogen 18 7-18 mg/dl Creatinine 0.66 0.60-1.20 mg/dl Est Creatinine Clear Calc Drug Dose 50.1 ml/min Estimated GFR () 103.7 Estimated GFR (Non- 89.5 BUN/Creatinine Ratio 26.8 10-20 Random Glucose 86 70-99 mg/dl Lactic Acid Level 1.8 0.4-2.0 mmol/L Calcium Level 8.8 8.5-10.1 mg/dl Magnesium Level 2.0 1.8-2.4 mg/dl Total Bilirubin 0.2 0.2-1 mg/dl Aspartate Amino Transf (AST/SGOT) 36 15-37 U/L Alanine Aminotransferase (ALT/SGPT) 110 12-78 U/L Alkaline Phosphatase 380 45-117 U/L Troponin I < 0.015 0-0.045 ng/ml Total Protein 6.0 6.4-8.2 gm/dl Albumin 2.7 3.4-5.0 gm/dl Globulin 3.3 2.5-4.0 gm/dl Albumin/Globulin Ratio 0.8 0.9-2 Urine Color YELLOW Urine Appearance CLOUDY CLEAR Urine pH 7.5 4.5-7.5 Urine Specific [place] 1.015 1.000-1.030 Urine Protein NEG NEG Urine Glucose (UA) NEG NEG Urine Ketones NEG NEG Urine Occult Blood TRACE NEG Urine Nitrite NEG NEG Urine Bilirubin NEG NEG Urine Urobilinogen NEG NEG Urine Leukocyte Esterase LARGE NEG Urine WBC (Auto) >30 0-5 /hpf Urine RBC (Auto) 0-4 0-4 /hpf Urine Hyaline Casts (Auto) 1-5 0-5 /lpf Urine Epithelial Cells (Auto) 0-5 0-5 /lpf Urine Bacteria (Auto) 1+ NEG Microbiology Results 06/17/17 Blood Culture, Received Pending 06/17/17 Blood Culture, Received Pending 06/17/17 Urine Culture, Received Pending Diagnostic Radiology CHEST ONE VIEW PORTABLE CLINICAL HISTORY: cough, tachycardia COMPARISON STUDY: 05/09/2017 FINDINGS: The heart is normal in size. There is no failure. There is been near complete interval resolution of the preceding identified left upper lung zone airspace opacities. There is a left-sided A-Port catheter unchanged in position. There is evidence for posterior spinal rods.[ IMPRESSION: Near complete interval resolution of the previously described pulmonary airspace opacities with only minimal left upper lung zone residual. No acute findings. Electronically signed by: Rommel Mary M.D. 06/17/2017 6:23 PM Dictated Date/Time: 06/17/2017 6:21 PM CXR normal Impression Assessment and Plan 72 year old female with history of MS, presenting with incidental urinary tract infection. Our plan for her is as follows Urinary Tract Infection - Reviewed previous culture data Multiple positive cultures for pansensitive Klebsiella spp as well as Enterococcus - Start Zosyn IV empirically and await culture results - Will begin rehydrating with NSS + 40 KCL at maintenance rate of 80 ml/hr Hypokalemia - K 3.2 in the ED - NSS + 40 mEq KCL infusion as above Transaminitis - ALT and AlkPhos Elevated; monitor daily CMP - Previous history of cholecystectomy - Review of old labs show these are new elevations though she has had transaminitis in the past - ? Medication effect? - Hold Acetaminophen at this time - Will order RUQ ultrasound Migraines - Continue Imitrex as needed - Tramadol PRN Multiple Sclerosis - Monthly Tysabri infusions - Continue Amitriptyline and Gabapentin GERD - Continue Pantoprazole Orthostatic Hypotension - Continue Midodrine Osteoporosis - Continue Alendronate DVT prophylaxis - Lovenox 40 mg daily Code Status - Level I Full Code Disposition - Med/Surg - PT and OT ordered; patient comes from home Resident Physician Supervision Note: Pt seen/examined independently. I discussed the case with the resident and agree with the findings and plan as documented in the note. Any exceptions or clarifications are listed here: 72 y/o F Hx MS and recurrent resistant UTIs. Presents with CC of migraine - pt was tachycardia at 140 and has a + UA which was essentially incidental however, she has a history of multiple resistant infections OE AAO x 3 S1,2 tachy - decreased to 100/min following IVF CTAB NT, ND, BS+ No CCE P: Started on Zosyn pending cultures based on previous sensitivities IVF provided Above discussed with pt and resident Documented By: Akin Sheridan Level of Care Med/Surg Resuscitation Status FULL RESUSCITATION VTE Prophylaxis VTE Risk Assessment Done? Y/N: Yes Risk Level: Moderate Given or contraindicated: Enoxaparin (Lovenox)SQ
[2017-06-17] MEDS: SUMATRIPTAN SUCC TAB 100 MG TAB PO PRN (23:50)
[2017-06-18] MEDS: POTASSIUM CHLORIDE INJ 40 MEQ in SODIUM CHLORIDE 0.9% 1000ML 1,000 ML IV SCH ×2 (00:25→13:35)
[2017-06-18 00:50] VITALS: BP 148/90; PULSE 89; TEMP 36.7; Ht 160 cm; Wt 40.0 kg
[2017-06-18] MEDS: PIPERACILL/TAZOBAC IV 3.375 GM in DEXTROSE 5% 100ML 100 ML IV SCH ×3 (01:17→17:56)
[2017-06-18] MEDS ORDERED: PHENAZOPYRIDINE HCL 200 MG TAB PO PRN (02:30)
[2017-06-18 06:37] LABS: HEMATOCRIT 44.1 % (37-47); MEAN CELL VOLUME 94.4 fL (80-100); MEAN CORPUSCULAR HEMOGLOBIN 31.9 pg (25-34); MEAN CORPUSCULAR HGB CONC 33.8 g/dl (32-36); MEAN PLATELET VOLUME 10.3 fL (7.4-10.4); PLATELET COUNT 247 K/uL (130-400); RED BLOOD COUNT 4.67 M/uL (4.2-5.4); WHITE BLOOD COUNT 16.71 K/uL (4.8-10.8)
[2017-06-18 06:46] LABS: PROTHROMBIN TIME (PATIENT) 10.7 SECONDS (9.0-12.0)
[2017-06-18 07:15] LABS: ALB/GLOB RATIO 0.8 (0.9-2); BUN/CREATININE RATIO 21.7 (10-20); CALCIUM 7.4 mg/dl (8.5-10.1); CREATININE 0.4 mg/dl (0.60-1.20); POTASSIUM 3.2 mmol/L (3.5-5.1)
[2017-06-18] MEDS ORDERED: HYDROmorphone INJ 0.5 MG/0.5 ML SYR IV ONE (07:15)
[2017-06-18] MEDS: METHYLCELLULOSE POWDER 454 GM JAR PO SCH (07:58)
[2017-06-18] MEDS: GABAPENTIN 800 MG TAB PO SCH ×3 (07:58→20:23)
[2017-06-18] MEDS: PANTOprazole SOD 40 MG TAB PO SCH ×2 (07:58→20:23)
[2017-06-18] MEDS: CHOLECALCIFEROL 1000 INTER.UNIT TAB PO SCH (07:59)
[2017-06-18] MEDS: FERROUS SULFATE 325 MG TAB PO SCH ×2 (07:59→17:07)
[2017-06-18] MEDS: MAGNESIUM OXIDE 400 MG TAB PO SCH (07:59)
[2017-06-18] MEDS: MIDODRINE 2.5 MG TAB PO SCH ×3 (08:00→17:07)
[2017-06-18 08:01] VITALS: BP 105/70; PULSE 114; TEMP 36.5; O2SAT 94
--- NOTE | 2017-06-18 08:08 | DIAGNOSTIC IMAGING REPORT ---
ABDOMINAL ULTRASOUND, RIGHT UPPER QUADRANT HISTORY: Acute Transaminitis; History of cholecystectomy. COMPARISON: Abdomen and pelvis CT 11/04/2015. FINDINGS: Pancreas: The pancreas demonstrates a normal echotexture. Liver: Unremarkable. Gallbladder: The gallbladder is surgically absent. CBD: 1 cm. This is likely due to the patient's postcholecystectomy state. Right kidney: Mild right hydronephrosis. There is a 7 mm stone within the lower pole of the right kidney. IMPRESSION: 1. Mild right hydronephrosis. This is not significantly changed compared to the 2014 examination. 2. A 7 mm stone within the right kidney, unchanged. 3. Cholecystectomy. 4. Normal pancreas. Electronically signed by: Yong Khan M.D. 06/18/2017 8:07 AM Dictated Date/Time: 06/18/2017 8:03 AM
[2017-06-18] MEDS ORDERED: ENOXAPARIN 40 MG/0.4 ML SYR SQ SCH (09:00)
[2017-06-18] MEDS ORDERED: RANITIDINE HCL SYRUP 150 MG/10 ML UDC PO ONE (10:00)
--- NOTE | 2017-06-18 10:00 | Family Medicine Progress Note ---
Progress Note Date of Service Jun 18, 2017. Subjective Pt evaluation today including: conversation w/ patient, physical exam, chart review, conversation w/ senior application security consultant, review of inpatient medication list Pain: none PO Intake: does not have an appetite Voiding: no voiding problems Patient still having burning with urination but improving Has a bad migraine this morning as man in room next to her does not turn off his tv at night No fevers, chills or night sweats overnight No chest pain, cough or shortness of breath No abdominal pain, nausea, vomiting or diarrhea Additional Comments: please see note for ROS Medications Current Inpatient Medications Medications (Trade) Dose Ordered Sig/Melvin Route Start Time Stop Time Status Last Admin Dose Admin Enoxaparin Sodium (Lovenox Inj) 40 mg Q24H SQ 06/18/17 09:00 07/18/17 08:59 06/18/17 08:04 40 MG Acetaminophen (Tylenol Tab) 650 mg Q4H PRN PO 06/17/17 22:00 07/17/17 21:59 Future Hold Al Hydrox/Mg Hydrox/Simethicone (Maalox Max Susp) 15 ml Q4H PRN PO 06/17/17 22:00 07/17/17 21:59 Magnesium Hydroxide (Milk Of Magnesia Susp) 30 ml Q6H PRN PO 06/17/17 22:00 07/17/17 21:59 Polyethylene (Miralax Powder Packet) 17 gm DAILY PRN PO 06/17/17 23:00 07/17/17 22:59 Ondansetron HCl (Zofran Inj) 4 mg Q6H PRN IV 06/17/17 22:00 07/17/17 21:59 Potassium Chloride 40 meq/ Sodium Chloride 1,020 ml @ 80 mls/hr [id number] IV 06/18/17 00:00 07/18/17 00:00 06/18/17 00:25 80 MLS/HR Alendronate Sodium (Fosamax Tab) 70 mg Q7D@0630 PO 06/24/17 06:30 07/24/17 06:29 Amitriptyline HCl (Elavil Tab) 75 mg HS PO 06/18/17 21:00 07/18/17 20:59 Cholecalciferol (Vitamin D Tab) 4,000 inter.unit DAILY PO 06/18/17 08:00 07/18/17 07:59 06/18/17 07:59 4,000 INTER.UNIT Gabapentin (Neurontin Tab) 800 mg TID PO 06/18/17 08:00 07/18/17 08:59 06/18/17 07:58 800 MG Magnesium Oxide (Mag-Ox Tab) 400 mg QAM PO 06/18/17 08:00 07/18/17 08:59 06/18/17 07:59 400 MG Pantoprazole Sodium (Protonix Tab) 40 mg BID PO 06/18/17 08:00 07/18/17 08:59 06/18/17 07:58 40 MG Sumatriptan Succinate (Imitrex Tab) 100 mg UD PRN PO 06/17/17 22:15 07/17/17 22:14 06/17/17 23:50 100 MG Tramadol HCl (Ultram Tab) 50 mg BID PRN PO 06/17/17 22:15 07/17/17 22:14 06/18/17 09:10 50 MG Ferrous Sulfate (Feosol Tab) 325 mg BID17 PO 06/18/17 09:00 07/18/17 08:59 06/18/17 07:59 325 MG Methylcellulose (Citrucel Powder) 19 gm DAILY PO 06/18/17 08:00 07/18/17 07:59 Midodrine (Proamatine Tab) 5 mg TIDM PO 06/18/17 08:00 07/18/17 07:59 06/18/17 08:00 5 MG Mirtazapine (Remeron Tab) 45 mg HS PO 06/18/17 21:00 07/18/17 20:59 Piperacillin Sod/ Tazobactam Sod 3.375 gm/Dextrose 115 ml @ 28.75 mls/ hr Q8H IV 06/18/17 02:00 06/28/17 01:59 06/18/17 01:17 28.75 MLS/HR Piperacillin Sod/ Tazobactam Sod (Consult) 1 ea UD PRN N/A 06/17/17 22:45 07/17/17 22:44 Heparin Sodium (Porcine) (Heparin 100 Unit/ml 5ml Flush) 5 ml PRN PRN IV 06/18/17 01:30 07/18/17 01:29 Phenazopyridine HCl (Pyridium Tab) 200 mg TID PRN PO 06/18/17 02:30 07/18/17 02:29 06/18/17 02:57 200 MG Objective Vital Signs Date Time Temp Pulse Resp B/P (MAP) Pulse Ox O2 Delivery O2 Flow Rate FiO2 06/18/17 08:01 36.5 114 20 105/70 (82) 94 06/18/17 08:00 Room Air 06/18/17 00:50 36.7 89 18 148/90 Room Air 06/17/17 22:59 36.4 94 17 151/92 96 06/17/17 22:28 94 17 151/92 96 Room Air 06/17/17 21:58 81 19 94 06/17/17 21:35 100 06/17/17 21:28 97 20 97 06/17/17 21:23 93 17 97 06/17/17 21:18 95 17 97 06/17/17 21:13 97 20 100 06/17/17 21:08 102 18 99 06/17/17 21:07 166/97 06/17/17 21:07 100 16 166/97 97 Room Air 06/17/17 21:03 102 20 97 06/17/17 20:58 100 18 97 06/17/17 20:53 102 18 97 06/17/17 20:48 105 16 98 06/17/17 20:43 100 19 96 06/17/17 20:38 92 18 98 06/17/17 20:33 93 19 97 06/17/17 20:28 108 23 97 06/17/17 20:23 106 17 97 06/17/17 20:18 105 18 98 06/17/17 20:13 107 16 98 06/17/17 20:08 107 23 89 06/17/17 20:03 107 22 97 06/17/17 19:58 106 18 100 06/17/17 19:53 103 17 97 06/17/17 19:48 105 19 96 06/17/17 19:43 106 17 98 06/17/17 19:38 106 20 97 06/17/17 19:33 104 17 97 06/17/17 19:28 106 15 96 06/17/17 19:23 108 18 96 06/17/17 19:21 177/114 06/17/17 19:18 110 17 96 06/17/17 19:13 107 13 95 Room Air 06/17/17 19:08 109 15 96 06/17/17 19:03 110 17 96 06/17/17 18:58 110 14 94 06/17/17 18:53 109 20 06/17/17 18:48 108 18 06/17/17 18:43 109 19 06/17/17 18:38 111 19 06/17/17 18:33 114 25 06/17/17 18:28 114 20 06/17/17 18:23 113 20 06/17/17 18:18 112 18 06/17/17 18:13 127 23 06/17/17 18:08 115 17 06/17/17 18:03 115 21 06/17/17 17:58 119 31 06/17/17 17:53 115 19 06/17/17 17:48 122 34 06/17/17 17:43 120 21 06/17/17 17:38 124 21 06/17/17 17:36 125 06/17/17 17:26 36.4 140 18 107/85 96 Room Air Physical Exam General Appearance: WD/WN, no apparent distress, + thin Neck: supple, no JVD, no carotid bruits, trachea midline Respiratory/Chest: chest non-tender, lungs clear, no respiratory distress, no accessory muscle use Cardiovascular: regular rate, rhythm, no edema, no murmur Abdomen: normal bowel sounds, soft, + tenderness (mild epigastric tenderness to deep palpation) Extremities: non-tender, no calf tenderness, normal capillary refill Skin: normal color, warm/dry, no rash Laboratory Results Results Past 24 Hours Test 06/17/17 18:04 06/17/17 20:00 06/18/17 06:01 06/18/17 09:13 Range/Units White Blood Count 8.68 16.71 4.8-10.8 K/uL Red Blood Count 4.86 4.67 4.2-5.4 M/uL Hemoglobin 15.7 14.9 12.0-16.0 g/dL Hematocrit 46.5 44.1 37-47 % Mean Corpuscular Volume 95.7 94.4 80-100 fL Mean Corpuscular Hemoglobin 32.3 31.9 25-34 pg Mean Corpuscular Hemoglobin Concent 33.8 33.8 32-36 g/dl Platelet Count 258 247 130-400 K/uL Mean Platelet Volume 10.3 10.3 7.4-10.4 fL Neutrophils (%) (Auto) 46.0 % Lymphocytes (%) (Auto) 41.9 % Monocytes (%) (Auto) 9.3 % Eosinophils (%) (Auto) 2.1 % Basophils (%) (Auto) 0.6 % Neutrophils # (Auto) 3.99 1.4-6.5 K/uL Lymphocytes # (Auto) 3.64 1.2-3.4 K/uL Monocytes # (Auto) 0.81 0.11-0.59 K/uL Eosinophils # (Auto) 0.18 0-0.5 K/uL Basophils # (Auto) 0.05 0-0.2 K/uL RDW Standard Deviation 50.9 49.5 36.4-46.3 fL RDW Coefficient of Variation 14.4 14.5 11.5-14.5 % Immature Granulocyte % (Auto) 0.1 % Immature Granulocyte # (Auto) 0.01 0.00-0.02 K/uL Sodium Level 140 142 136-145 mmol/L Potassium Level 3.2 3.2 3.5-5.1 mmol/L Chloride Level 104 109 98-107 mmol/L Carbon Dioxide Level 32 27 21-32 mmol/L Anion Gap 4.0 6.0 3-11 mmol/L Blood Urea Nitrogen 18 9 7-18 mg/dl Creatinine 0.66 0.40 0.60-1.20 mg/dl Est Creatinine Clear Calc Drug Dose 50.1 82.6 ml/min Estimated GFR () 103.7 122.3 Estimated GFR (Non- 89.5 105.5 BUN/Creatinine Ratio 26.8 21.7 10-20 Random Glucose 86 63 70-99 mg/dl Lactic Acid Level 1.8 0.4-2.0 mmol/L Calcium Level 8.8 7.4 8.5-10.1 mg/dl Magnesium Level 2.0 1.8-2.4 mg/dl Total Bilirubin 0.2 0.4 0.2-1 mg/dl Aspartate Amino Transf (AST/SGOT) 36 27 15-37 U/L Alanine Aminotransferase (ALT/SGPT) 110 79 12-78 U/L Alkaline Phosphatase 380 318 45-117 U/L Troponin I < 0.015 0-0.045 ng/ml Total Protein 6.0 5.1 6.4-8.2 gm/dl Albumin 2.7 2.3 3.4-5.0 gm/dl Globulin 3.3 2.8 2.5-4.0 gm/dl Albumin/Globulin Ratio 0.8 0.8 0.9-2 Urine Color YELLOW Urine Appearance CLOUDY CLEAR Urine pH 7.5 4.5-7.5 Urine Specific [place] 1.015 1.000-1.030 Urine Protein NEG NEG Urine Glucose (UA) NEG NEG Urine Ketones NEG NEG Urine Occult Blood TRACE NEG Urine Nitrite NEG NEG Urine Bilirubin NEG NEG Urine Urobilinogen NEG NEG Urine Leukocyte Esterase LARGE NEG Urine WBC (Auto) >30 0-5 /hpf Urine RBC (Auto) 0-4 0-4 /hpf Urine Hyaline Casts (Auto) 1-5 0-5 /lpf Urine Epithelial Cells (Auto) 0-5 0-5 /lpf Urine Bacteria (Auto) 1+ NEG Prothrombin Time 10.7 9.0-12.0 SECONDS Prothromb Time International Ratio 1.0 0.9-1.1 Microbiology Results 06/17/17 Blood Culture, Received Pending 06/17/17 Blood Culture, Received Pending 06/17/17 Urine Culture, Received Pending Assessment and Plan 72 year old female with history of MS, presenting with incidental urinary tract infection. Still has persisting urinary burning. Elevated WCC this morning. Will continue with IV antibiotics pending culture results. Urinary Tract Infection - In the past multiple positive cultures for pansensitive Klebsiella spp as well as Enterococcus - Zosyn IV empirically and await culture results - Hydrating with NSS + 40 KCL at maintenance rate of 80 ml/hr GERD - Continue Pantoprazole - Will add zantac as patient has epigastric tenderness Hypokalemia - K 3.2 in the ED and this morning - NSS + 40 mEq KCL infusion as above Transaminitis - ALT and AlkPhos Elevated; monitor daily CMP - Liver Ultrasound with no acute findings - Likely to be affect from MS medication Migraines - Continue Imitrex as needed - Tramadol PRN Multiple Sclerosis - Monthly Tysabri infusions - Continue Amitriptyline and Gabapentin Orthostatic Hypotension - Continue Midodrine Osteoporosis - Continue Alendronate DVT prophylaxis - Lovenox 40 mg daily Code Status - Level I Full Code Disposition - Med/Surg - PT and OT ordered; patient comes from home Resident Physician Supervision Note: I interviewed and examined the patient. Discussed with Dr. Granados and agree with findings and plan as documented in the note. Any exceptions or clarifications are listed here: None Documented By: Artis Schilling feeling better w abdominal pain. headache persists. R sided. vitals noted, nad laying in bed in quiet room. ost/msk - R sided Cspine suboccipitals high tone/tender/decreased ROM - inhibitory pressure - improved. pt tolerated well. headaches - migraine and tension mixed. imitrex for migraine; OMT/ice/valium for tension somatic dysfunction cervical - OMT as above UTI - await culture epigastric pain - resolved as indigestion w zantac DVT proph -lovenox elevated LFTs - US reassuring, trend Continued [facility] stay due to: multiple IV medications needed, home environment unsafe for pt
[2017-06-18 11:00] VITALS: BP 121/82; O2SAT 94
[2017-06-18] MEDS: SUMATRIPTAN SUCC TAB 100 MG TAB PO PRN (16:07)
[2017-06-18 16:26] VITALS: BP 119/75; PULSE 90; TEMP 36.3; O2SAT 95
[2017-06-18] MEDS ORDERED: DIAZEPAM 2MG TAB PO ONE (21:00)
[2017-06-18] MEDS ORDERED: AMITRIPTYLINE HCL 25 MG TAB PO SCH (21:00)
[2017-06-18] MEDS ORDERED: MIRTAZAPINE TAB 15 MG TAB PO SCH (21:00)
[2017-06-18 23:58] VITALS: BP 129/61; PULSE 96; TEMP 36.4; O2SAT 96
[2017-06-19] MEDS: POTASSIUM CHLORIDE INJ 40 MEQ in SODIUM CHLORIDE 0.9% 1000ML 1,000 ML IV SCH (02:13)
[2017-06-19] MEDS: PIPERACILL/TAZOBAC IV 3.375 GM in DEXTROSE 5% 100ML 100 ML IV SCH ×2 (02:13→09:22)
[2017-06-19 06:44] LABS: BASO % 0.5 %; BASO ABS # 0.03 K/uL (0-0.2); COMPLETE YES; EOS % 6.3 %; HEMATOCRIT 38.1 % (37-47); IG% 0.2 %; LYMPH % 31.9 %; LYMPH ABS # 1.92 K/uL (1.2-3.4); MEAN CELL VOLUME 97.4 fL (80-100); MEAN CORPUSCULAR HEMOGLOBIN 31.7 pg (25-34); MEAN CORPUSCULAR HGB CONC 32.5 g/dl (32-36); MEAN PLATELET VOLUME 10.5 fL (7.4-10.4); MONO % 7.1 %; PLATELET COUNT 190 K/uL (130-400); RED BLOOD COUNT 3.91 M/uL (4.2-5.4); WHITE BLOOD COUNT 6.02 K/uL (4.8-10.8)
[2017-06-19 06:58] VITALS: BP 136/85; PULSE 92; TEMP 36.2; O2SAT 94
[2017-06-19 07:13] LABS: ALB/GLOB RATIO 0.8 (0.9-2); BUN/CREATININE RATIO 12.3 (10-20); CALCIUM 7.4 mg/dl (8.5-10.1); CREATININE 0.47 mg/dl (0.60-1.20); POTASSIUM 3.9 mmol/L (3.5-5.1)
[2017-06-19] MEDS: GABAPENTIN 800 MG TAB PO SCH (07:39)
[2017-06-19] MEDS: CHOLECALCIFEROL 1000 INTER.UNIT TAB PO SCH (07:40)
[2017-06-19] MEDS: METHYLCELLULOSE POWDER 454 GM JAR PO SCH (07:40)
[2017-06-19] MEDS: FERROUS SULFATE 325 MG TAB PO SCH (07:40)
[2017-06-19] MEDS: MIDODRINE 2.5 MG TAB PO SCH ×2 (07:40→11:27)
[2017-06-19] MEDS: MAGNESIUM OXIDE 400 MG TAB PO SCH (07:40)
[2017-06-19] MEDS: PANTOprazole SOD 40 MG TAB PO SCH (07:40)
[2017-06-19] MEDS ORDERED: HEPARIN SOD 5000 UNIT/0.5 ML CARP SQ SCH (09:00)
[2017-06-19] MEDS ORDERED: NITR-5 PO (10:20)
--- NOTE | 2017-06-19 10:28 | Discharge Instructions ---
Discharge Instructions Date of Service Jun 19, 2017. Admission Reason for Admission: UTI Discharge Discharge Diagnosis / Problem: Enterococcus UTI Discharge Goals Goal(s): Decrease discomfort, Improve function, Increase independence, Improve nutritional status, Diagnostic testing Activity Recommendations Activity Limitations: per Instructions/Follow-up section . Instructions / Follow-Up Instructions / Follow-Up You have been diagnosed with a Urinary Tract Infection. Your urine cultures grew Enterococcus Species. The antibiotic sensitivities are pending. You have been given Intravenous Antibiotics while you were in the hospital and will be discharged on a medication called Nitrofurantoin (Macrobid) 100mg every 12 hours for the next 5 days. Please take this medication as directed. We recommend follow up with your primary care doctor within one week. If the Enterococcus species is resistant to Macrobid (we should know this information in the next 24-48 hours) someone from the hospital will call you with a new prescription. Please see your primary care doctor sooner if you experience increased frequency of urination out of proportion to the amount of water your drink and burning while you pee. Also, it is important to stay hydrated, please drink a lot of water to prevent urinary tract infections from happening in the future. Current Hospital Diet Patient's current hospital diet: Regular Diet Discharge Diet Recommended Diet: Regular Diet Pending Studies Studies pending at discharge: yes (urine culture sensitivities to Enterococcus) List of pending studies: Urine Culture Enterococcus Species Medical Emergencies . Who to Call and When: Medical Emergencies: If at any time you feel your situation is an emergency, please call 911 immediately. . Non-Emergent Contact Non-Emergency issues call your: Primary Care Provider . . "Provider Documentation" section prepared by Geovany Guerrero. . VTE Core Measure Inpt VTE Proph given/why not?: Enoxaparin (Lovenox)SQ Resident Involvement: Resident Care Provided Care Provided: Adult Hospital Medicine
[2017-06-19] MEDS ORDERED: NURSING VERBAL MED ORDER ONE (11:15)
[2017-06-19] MEDS ORDERED: SUMATRIPTAN SUCC TAB 100 MG TAB PO ONE (11:30)
[2017-06-19 11:31] VITALS: BP 136/85; PULSE 92; TEMP 36.2; O2SAT 94
--- NOTE | 2017-06-19 17:29 | Discharge Summary ---
Discharge Summary Date of Service Jun 19, 2017. (Geovany Guerrero M.D.) Discharge Summary Admission Date: Jun 17, 2017 at 22:01 Discharge Date: Jun 19, 2017 Discharge Disposition: Home Principal Diagnosis: UTI Immunizations: Have You Had Influenza Vaccine: Yes Influenza Vaccine Date: Sep 09, 2013 History of Tetanus Vaccine?: Yes Tetanus Immunization Date: Oct 12, 2002 History of Pneumococcal: UNSURE Pneumococcal Date: Sep 03, 2011 History of Hepatitis B Vaccine: No Procedures: ABDOMINAL ULTRASOUND, RIGHT UPPER QUADRANT HISTORY: Acute Transaminitis; History of cholecystectomy. COMPARISON: Abdomen and pelvis CT 11/04/2015. FINDINGS: Pancreas: The pancreas demonstrates a normal echotexture. Liver: Unremarkable. Gallbladder: The gallbladder is surgically absent. CBD: 1 cm. This is likely due to the patient's postcholecystectomy state. Right kidney: Mild right hydronephrosis. There is a 7 mm stone within the lower pole of the right kidney. IMPRESSION: 1. Mild right hydronephrosis. This is not significantly changed compared to the 2014 examination. 2. A 7 mm stone within the right kidney, unchanged. 3. Cholecystectomy. 4. Normal pancreas. CHEST ONE VIEW PORTABLE CLINICAL HISTORY: cough, tachycardia COMPARISON STUDY: 05/09/2017 FINDINGS: The heart is normal in size. There is no failure. There is been near complete interval resolution of the preceding identified left upper lung zone airspace opacities. There is a left-sided A-Port catheter unchanged in position. There is evidence for posterior spinal rods.[ IMPRESSION: Near complete interval resolution of the previously described pulmonary airspace opacities with only minimal left upper lung zone residual. No acute findings. (Geovany Guerrero M.D.) Medication Reconciliation New Medications: Nitrofurantoin Monohyd Macrocr (Macrobid) 100 Mg Cap 100 MG PO BID for 5 Days, #10 CAP Continued Medications: Acetaminophen Tab (Tylenol) 325 Mg Tab 325 MG PO DAILY PRN for Pain or Fever Alendronate Sodium (Alendronate Sodium) 70 Mg Tab 70 MG PO WK TAKE THIS MEDICATION EVERY MONDAY. Amitriptyline Hcl (Elavil) 75 Mg Tab 75 MG PO HS TAKE THIS MEDICATION 2-3 HOURS BEFORE BEDTIME. Cholecalciferol (Vitamin D3) 1,000 Unit Tab 4000 INTER.UNIT PO TID Ferrous Sulfate (Ferrous Sulfate) 325 Mg Tab 325 MG PO BID Gabapentin (Gabapentin) 800 Mg Tab 800 MG PO TID Magnesium Oxide (Mag-Ox) 400 Mg Tab 400 MG PO QAM, TAB Methylcellulose (Laxative) (Citrucel) 500 Mg Tab 2000 MG PO QAM Midodrine Hcl (Midodrine Hcl) 5 Mg Tab 5 MG PO TID Mirtazapine (Mirtazapine) 45 Mg Tab 45 MG PO HS Natalizumab (Tysabri) Unknown Strength Inj 1 DOSE IV MONTHLY Pantoprazole (Pantoprazole Sodium) 40 Mg Tab 40 MG PO BID Sumatriptan Succinate (Imitrex) 100 Mg Tab 100 MG PO UD PRN for Migraine TAKE 1 TABLET FOR MIGRAINE RELIEF, MAY REPEAT 2 HOURS LATER IF NEEDED. MAXIMUM 200 MG/DAY. Tramadol Hcl (Ultram) 50 Mg Tab 50 MG PO BID PRN for Pain, TAB Discharge Exam The patient was seen and examined at bedside. No acute overnight events. Headache has resolved. Increased urinary frequency has resolved. Patient is resting comfortably in bed. Denies having any pain. Eating and urinating well. Plan of care was described to the patient and all questions were answered. ROS: No chest pain, no SOB, no dyspnea on exertion, no palpitations, no fevers, no chills, no nausea, no vomiting, no diarrhea, no dysuria, no rash. Physical Exam General Appearance: WD/WN, no apparent distress, + thin Neck: supple, no JVD, no carotid bruits, trachea midline Respiratory/Chest: chest non-tender, lungs clear, no respiratory distress, no accessory muscle use Cardiovascular: regular rate, rhythm, no edema, no murmur Abdomen: normal bowel sounds, soft, no epigastric tenderness. Extremities: non-tender, no calf tenderness, normal capillary refill Skin: normal color, warm/dry, no rash (Geovany Guerrero M.D.) Hospital Course 72F with history of MS, presenting to the ER with a migraine and was tachycardic in the 140s on exam and found to have elevated liver function tests. Pt was recently discharged from the hospital for sepsis 2/2 to pneumonia. She was found to have a UTI and urine and blood cultures were sent. Pt was admitted for observation due to multiple comorbidities such as MSN, tachycardia and UTI with a concern for sepsis. Pt was started on Zosyn IV empirically. Urine cultures grew enterococcus species and blood cultures were negative. The pt was discharged on 5 days of Macrobid 100mg BID. Patient had an incidental mildly elevated Transaminases that resolved. Liver US showed no acute pathology. We deemed this Transaminitis to be from the Multiple Sclerosis medications. Pt was advised to finish her course of Macrobid and to follow up with her Primary Care Provider within 3 weeks. At time of discharge urine sensitivities had returned and the Enterococcus species were in fact SENSITIVE to Macrobid. Total Time Spent: Greater than 30 minutes This includes examination of the patient, discharge planning, medication reconciliation, and communication with other providers. (Geovany Guerrero M.D.) Resident Physician Supervision Note: I interviewed and examined the patient. Discussed with Dr. Guerrero and agree with findings and plan as documented in the note. Any exceptions or clarifications are listed here: None Documented By: Artis Schilling feeling better wants to go home. awaiting urine culture but shes OK w empiric treatment pending final results vitals noted nad breathing unlabored no pallor or icterus headache - migraine and tension - improved UTI - macrobid pending final cultures (Artis Schilling, D.O.) Discharge Instructions Please refer to the electronic Patient Visit Report (Discharge Instructions) for additional information. (Geovany Guerrero M.D.) Additional Copies To George Montoya M.D. Resident Involvement: Resident Care Provided Care Provided: Adult Hospital Medicine (Geovany Guerrero M.D.)
[2017-06-24] MEDS ORDERED: ALENDRONATE SODIUM 70 MG TAB PO SCH (06:30)
[2017-07-22] MEDS ORDERED: METH500T3 PO (09:58)
[2017-07-22] MEDS ORDERED: PRT/40 PO (16:10)
[2017-07-22] MEDS ORDERED: NATA1INJ IV (16:15)
[2017-07-22] MEDS ORDERED: ULT/50 PO (16:39)
[2017-07-22] MEDS ORDERED: AMIT75TA2 PO (17:00)
[2017-07-22] MEDS ORDERED: NRN800 PO (17:00)
[2017-08-25] MEDS ORDERED: LORA-741 PO (16:06)
[2017-08-25] MEDS ORDERED: PRED10TA PO (16:06)
[2017-08-25] MEDS ORDERED: ULT/50 PO (16:06)
== END 2017-06-19 12:52 | disposition home or self-care (01) | DRG 690 ==
LOC: C.EDB 17:24 → C.4E 22:01 → ENRESERV 22:47
PROVIDERS: ADMIT Student in an Organized Health Care Education/Training Program; ATTEND Family Medicine
DX: N39.0 Urinary tract infection, site not specified (principal); B95.2 Enterococcus as the cause of diseases classified elsewhere; K21.9 Gastro-esophageal reflux disease without esophagitis; R00.0 Tachycardia, unspecified; E87.6 Hypokalemia; G43.909 Migraine, unspecified, not intractable, without status migrainosus; M81.0 Age-related osteoporosis without current pathological fracture; G35 Multiple sclerosis; I95.1 Orthostatic hypotension; M99.01 Segmental and somatic dysfunction of cervical region; R10.13 Epigastric pain; K27.9 Peptic ulcer, site unspecified, unspecified as acute or chronic, without hemorrhage or perforation; Z79.899 Other long term (current) drug therapy; Z79.891 Long term (current) use of opiate analgesic; Z79.83 Long term (current) use of bisphosphonates

== ENCOUNTER → 2017-06-29 | Outpatient (CLI) | payer OTHER ==
[~2017-06-29] MED LIST changes: +ACET325T96 PO; +ACET650S10 PR; +AMIT75TA2 PO; +AMOX875T PO; +BISA10SU38 PR; +CALC500C3 PO; +CHOL1000 PO; +CLOTCRE33 TOP; +CRFL PO; +DEXT40GE PO; +FERR325T PO; +FSM70 PO; +GLGKIT IM; +IMT100 PO; +LIQUID PROTEIN PO; +LORA-741 PO; +MAGN400C3 PO; +MAGN400T7 PO; +METH500T3 PO; +MIDO5TAB PO; +MIRT45TA3 PO; +MISCCAP80 PO; +MOML PO; +MULTTAB58 PO; +NATA1INJ IV; +NRN800 PO; +ONDA4TAB46 PO; +POTA-74 PO; +PRED10TA PO; +PRT/40 PO; +SNTO30 TD; +SODIENE PR; +TPM25 PO; +ULT/50 PO
== END | disposition home or self-care (01) ==
LOC: C.LABBFT 09:59
PROVIDERS: ATTEND Physician Assistant Medical
DX: R00.0 Tachycardia, unspecified (principal)

== ENCOUNTER 2017-07-05 15:38 | Emergency (ER) | payer OTHER ==
[~2017-07-05] VITALS: Ht 160 cm; Wt 43.0 kg
[~2017-07-05 15:38] MED LIST changes: -ACET325T96 PO; -ACET650S10 PR; -AMIT75TA2 PO; -AMOX875T PO; -BISA10SU38 PR; -CALC500C3 PO; -CHOL1000 PO; -CLOTCRE33 TOP; -CRFL PO; -DEXT40GE PO; -FERR325T PO; -FSM70 PO; -GLGKIT IM; -IMT100 PO; -LIQUID PROTEIN PO; -LORA-741 PO; -MAGN400C3 PO; -MAGN400T7 PO; -METH500T3 PO; -MIDO5TAB PO; -MIRT45TA3 PO; -MISCCAP80 PO; -MOML PO; -MULTTAB58 PO; -NATA1INJ IV; -NRN800 PO; -ONDA4TAB46 PO; -POTA-74 PO; -PRED10TA PO; -PRT/40 PO; -SNTO30 TD; -SODIENE PR; -TPM25 PO; -ULT/50 PO
[2017-07-05 15:42] VITALS: TEMP 36.6; Ht 160 cm; Wt 43.0 kg
[2017-07-05] MEDS ORDERED: HYDROmorphone INJ 1 MG/ML SYR IM STA (15:57)
[2017-07-05] MEDS ORDERED: PROCHLORPERAZINE 5 MG/ML 2 ML VIAL IM STA (15:57)
[2017-07-05] MEDS ORDERED: KETOROLAC TROMETHAMINE 60 MG/2 ML VIAL IM STA (15:57)
--- NOTE | 2017-07-05 16:10 | EMERGENCY ROOM VISIT NOTE ---
History Report prepared by Fidencio: Kirti Wade Under the Supervision of: Dr. Dom Blanton M.D. First contact with patient: 15:47 Chief Complaint: HEADACHE Stated Complaint: MIGRAINE/HEADACHE History of Present Illness The patient is a 72 year old female who presents to the Emergency Room with complaints of a persistent headache starting 1100 today. The headache is at the right side of her moravian. She has a history of migraines and her current headache feels like her migraines. She took Imitrex to no significant relief. The light bothers her eyes. She has nausea, but no vomiting. She denies any fever, chills, neck pain, chest pain, SOB, numbness, or weakness. She has weakness in her legs normally. She denies any head injury. She is not on any blood thinners. She has a history of UTI, but currently does not have any symptoms. Source of History: patient Onset: 1100 today Position: head Quality: ache Timing: other (persistent) Associated Symptoms: + nausea, No fevers, No chills, No neck pain, No chest pain, No SOB, No vomiting, No weakness, No numbness Note: Pt reports light sensitivity. Review of Systems See HPI for pertinent positives & negatives. A total of 10 systems reviewed and were otherwise negative. Past Medical & Surgical Medical Problems: (1) Benign hypertension (2) Chronic peptic ulcer (3) Hysterectomy (4) Intertrochanteric fracture of right hip (5) Intertrochanteric fracture of right hip (6) Migraine (7) Multiple sclerosis (8) Multiple sclerosis (9) Multiple sclerosis exacerbation (10) non cardiac chest pain related to gi (11) Sepsis (12) STAPHYLOCOCCAL SEPTICEMIA, NEC (13) UTI (urinary tract infection) Surgical Problems: (1) S/P partial gastrectomy Old medical records were reviewed. Nurse's notes were reviewed and I agree with. Family History Diabetes mellitus FH: cholecystectomy FHx: heart disease Social History Smoking Status: Former Smoker Alcohol Use: none Drug Use: none Marital Status: Housing Status: lives with family Occupation Status: retired Current/Historical Medications Scheduled Alendronate Sodium (Alendronate Sodium), 70 MG PO WK Amitriptyline Hcl (Elavil), 75 MG PO HS Cholecalciferol (Vitamin D3), 4,000 INTER.UNIT PO TID Ferrous Sulfate (Ferrous Sulfate), 325 MG PO BID Gabapentin (Gabapentin), 800 MG PO TID Magnesium Oxide (Mag-Ox), 400 MG PO QAM Methylcellulose (Laxative) (Citrucel), 2,000 MG PO QAM Midodrine Hcl (Midodrine Hcl), 5 MG PO TID Mirtazapine (Mirtazapine), 45 MG PO HS Natalizumab (Tysabri), 1 DOSE IV MONTHLY Pantoprazole (Pantoprazole Sodium), 40 MG PO BID Scheduled PRN Acetaminophen Tab (Tylenol), 325 MG PO DAILY PRN for Pain or Fever Sumatriptan Succinate (Imitrex), 100 MG PO UD PRN for Migraine Tramadol Hcl (Ultram), 50 MG PO BID PRN for Pain Allergies Coded Allergies: Morphine (Verified Adverse Reaction, Intermediate, " MAKES ME MEAN" - CONFUSION, 06/17/17) Physical Exam Vital Signs Date Time Temp Pulse Resp B/P (MAP) Pulse Ox O2 Delivery O2 Flow Rate FiO2 07/05/17 16:17 114 18 149/98 96 07/05/17 15:42 36.6 85 20 113/70 96 Room Air Physical Exam General: Non ill appearing older female, resting comfortably with lights out. Mild photophobia. Well developed well nourished in no acute distress, breathing comfortably on room air. Normal speech HEENT: Normal cephalic atraumatic. Pupils are equal round and reactive to light. Extraocular movements are intact. Oropharynx is pink with moist mucous membranes. No swelling of the mouth lips or tongue. Neck: Supple with a midline trachea. No meningeal signs or stiffness, no JVD or bruits. No Stridor. Chest: Clear to auscultation bilaterally. No wheezes or rhonchi. No increased work of breathing. Heart: regular rate and rhythm. Abdomen: Soft nontender, nondistended without rebound guarding or rigidity. Extremities: No cyanosis clubbing or edema. No calf tenderness or assymetry Spine/Back. Non tender to palpation. No CVA tenderness Skin: Good turgor without rashes. Neurologic exam: Cranial nerves two through 12 are intact. Baseline weakness of legs which is unchanged. Otherwise motor and sensation are intact and symmetrical throughout. Medical Decision & Procedures Medications Administered Medications (Trade) Dose Ordered Sig/Melvin Route Start Time Stop Time Status Last Admin Dose Admin Prochlorperazine Edisylate (Compazine Inj) 10 mg NOW STAT IM 07/05/17 15:57 07/05/17 16:00 DC 07/05/17 16:11 10 MG Hydromorphone HCl (Dilaudid Inj) 1 mg NOW STAT IM 07/05/17 15:57 07/05/17 16:00 DC 07/05/17 16:11 1 MG Ketorolac Tromethamine (Toradol Inj) 60 mg NOW STAT IM 07/05/17 15:57 07/05/17 16:00 DC 07/05/17 16:11 60 MG ED Course 1549: Past medical records reviewed. The patient was evaluated in room C3, and a complete history and physical examination were performed. 1557: Toradol Inj 60 mg IM, Dilaudid Inj 1 mg IM, Compazine Inj 10 mg IM. 1606: Upon reevaluation, the patient is resting comfortably. I discussed the results and treatment plan with her. She verbalized agreement of the treatment plan. The patient was discharged home. Medical Decision Differentials include, but are not limited to; acute migraine, tension headache , anxiety, intracranial hemorrhage, CVA. This patient comes in as described above. She was placed in room C3. She is having a headache which started earlier today which consistent with her previous migraines. She has no acute neurologic deficits. She's had no fall or trauma. She is not on any blood thinners. She does have MS and Baseline weakness of her legs but nothing new. She has nothing to suggest meningitis or encephalitis. I do know her well from previous visits resins at the bedside and driving. I did give her Compazine 10 mg IM, Dilaudid 1 mg IM, Toradol 60 mg IM. These are typical dosages for her. She was given these meds. She will be discharged home. She will return if: increasing pain, worsening of symptoms , headaches different than typical, fever chills, any new problems concerns. She is happy the plan and discharged to home. Medication Reconcilliation Current Medication List: was personally reviewed by me Blood Pressure Screening Patient's blood pressure: Normal blood pressure Blood pressure disposition: Did not require urgent referral Impression Primary Impression: Migraine Scribe Attestation The scribe's documentation has been prepared under my direction and personally reviewed by me in its entirety. I confirm that the note above accurately reflects all work, treatment, procedures, and medical decision making performed by me. Departure Information Dispostion Home / Self-Care Referrals George Montoya M.D. (PCP) Forms HOME CARE DOCUMENTATION FORM, IMPORTANT VISIT INFORMATION Patient Instructions My [facility] Additional Instructions Rest. Drink plenty of fluids. Return if: Headache different than typical, worsening of symptoms, fever or chills, numbness or weakness, any new problems or concerns Follow-up with your doctor in 1-2 days for recheck
[2017-07-05 16:17] VITALS: BP 149/98; PULSE 114; O2SAT 96
[2017-07-22] MEDS ORDERED: METH500T3 PO (09:58)
[2017-07-22] MEDS ORDERED: PRT/40 PO (16:10)
[2017-07-22] MEDS ORDERED: NATA1INJ IV (16:15)
[2017-07-22] MEDS ORDERED: ULT/50 PO (16:39)
[2017-07-22] MEDS ORDERED: AMIT75TA2 PO (17:00)
[2017-07-22] MEDS ORDERED: NRN800 PO (17:00)
[2017-08-25] MEDS ORDERED: LORA-741 PO (16:06)
[2017-08-25] MEDS ORDERED: PRED10TA PO (16:06)
[2017-08-25] MEDS ORDERED: ULT/50 PO (16:06)
== END 2017-07-05 16:18 | disposition home or self-care (01) ==
LOC: C.EDB 15:39 → C.EDC 16:18
DX: G43.909 Migraine, unspecified, not intractable, without status migrainosus (principal); I10 Essential (primary) hypertension; G35 Multiple sclerosis; Z87.11 Personal history of peptic ulcer disease; Z87.440 Personal history of urinary (tract) infections; Z87.81 Personal history of (healed) traumatic fracture; Z86.19 Personal history of other infectious and parasitic diseases; Z90.49 Acquired absence of other specified parts of digestive tract; Z87.891 Personal history of nicotine dependence; Z79.899 Other long term (current) drug therapy; Z88.5 Allergy status to narcotic agent; Z83.3 Family history of diabetes mellitus; Z83.79 Family history of other diseases of the digestive system; Z82.49 Family history of ischemic heart disease and other diseases of the circulatory system

== ENCOUNTER 2017-07-16 18:19 | Emergency (ER) | payer OTHER ==
[~2017-07-16] VITALS: Ht 160 cm; Wt 44.5 kg
[2017-07-16 18:23] VITALS: TEMP 36.7; Ht 160 cm; Wt 44.5 kg
[2017-07-16] MEDS ORDERED: HYDROmorphone INJ 1 MG/ML SYR IM STA (18:40)
[2017-07-16] MEDS ORDERED: PROCHLORPERAZINE 5 MG/ML 2 ML VIAL IM STA (18:40)
[2017-07-16] MEDS ORDERED: KETOROLAC TROMETHAMINE 30 MG/ML VIAL IM STA (18:40)
--- NOTE | 2017-07-16 18:50 | EMERGENCY ROOM VISIT NOTE ---
ED Visit Note First contact with patient: 18:34 Patient was seen by our PA/TELESALES MANAGER. I was involved in the patient's care and did evaluate the patient myself. I was involved in the care throughout the ER stay. The patient presents with a headache that she describes as a migraine. She is stable. She is going to be medicated and I suspect eventually discharged home.
--- NOTE | 2017-07-16 18:52 | EMERGENCY ROOM VISIT NOTE ---
ED Visit Note First contact with patient: 18:34 CHIEF COMPLAINT: Migraine headache HISTORY OF PRESENT ILLNESS: This 72-year-old female patient presented to the emergency department with a gradual onset of a severe generalized headache that started yesterday. There has been associated photophobia, phonophobia, nausea and vomiting. The patient denies fever or chills recently, and there is no weakness or numbness of the extremities. There is no difficulty with speech or vision. No trauma to the head and no neck pain. The pain is severe, constant, and it is slowly increasing in severity. The patient rates the pain as severe and 8/10. The patient has taken her usual medications. This is not the worst headache of the life and is similar to previous migraines. Previous imaging studies of the brain (CT scans) have been normal. REVIEW OF SYSTEMS: An 8 system review of systems was completed with positives and pertinent negatives listed in the HPI. ALLERGIES: Morphine MEDICATIONS: See nursing notes PMH: Multiple sclerosis, migraines, GERD SOCIAL HISTORY: The patient lives locally with family. She does not smoke PHYSICAL EXAM: Vital Signs: Reviewed Nurse's notes, vital signs stable. MENTAL STATUS: Alert, oriented, and coherent. In great distress from the headache. NECK : Supple, no nuchal rigidity, nontender, no lymphadenopathy. HEART: Regular rhythm and normal rate without murmurs, ectopy, gallops, or rubs. SKIN: Normal. NEUROLOGICAL: Pupils are round, equal and react to light. The optic fundi are normal and the discs are flat. EOMs are full and there is no nystagmus. The patient moves all extremities well and the gait is normal. EMERGENCY DEPARTMENT COURSE: I examined the patient. The patient was given Dilaudid 1 mg IM, Compazine 10 mg IM, Toradol 30 mg IM with relief of their pain. The differential diagnosis includes acute intracranial bleed, meningitis , encephalitis, mass or mass effect, sinusitis, infection, tumor, headache, temporal arteritis and carbon monoxide exposure, and migraine. The patient was discharged home in stable condition with her significant other driving. THE PATIENT IS ON A 2 SHOT PER MONTH TREATMENT PROTOCOL. AT THIS TIME, THE 2 SHOT PER MONTH PROTOCOL WILL BE DISSOLVED. THE PATIENT STATES THAT SHE NEVER GOT A LETTER INDICATING THAT WE WILL NO LONGER BE PROVIDING 2 SHOTS PER MONTH OF NARCOTICS. AT THIS TIME, I HAVE TOLD HER THAT THIS WILL BE THE LAST TIME SHE RECEIVES NARCOTICS FOR HER MIGRAINES. I ADVISED HER THAT SHE IS WELCOME TO RETURN TO THE ED NEEDED AND AT ANY TIME FOR HER MIGRAINES BUT SHE WILL NOT BE TREATED WITH NARCOTICS. THE PATIENT ACKNOWLEDGES UNDERSTANDING. The patient was also seen and examined by Dr. Byers who agrees with the assessment and treatment plan. Problem List Medical Problems: (1) Benign hypertension Status: Chronic (2) Chronic peptic ulcer Status: Chronic (3) Hysterectomy Status: Resolved (4) Migraine Status: Chronic (5) Multiple sclerosis Status: Chronic (6) Multiple sclerosis Status: Chronic (7) Sepsis Status: Resolved (8) STAPHYLOCOCCAL SEPTICEMIA, NEC Status: Resolved Surgical Problems: (1) S/P partial gastrectomy Status: Chronic Current/Historical Medications Scheduled Alendronate Sodium (Alendronate Sodium), 70 MG PO WK Amitriptyline Hcl (Elavil), 75 MG PO HS Cholecalciferol (Vitamin D3), 4,000 INTER.UNIT PO TID Ferrous Sulfate (Ferrous Sulfate), 325 MG PO BID Gabapentin (Gabapentin), 800 MG PO TID Magnesium Oxide (Mag-Ox), 400 MG PO QAM Methylcellulose (Laxative) (Citrucel), 2,000 MG PO QAM Midodrine Hcl (Midodrine Hcl), 5 MG PO TID Mirtazapine (Mirtazapine), 45 MG PO HS Natalizumab (Tysabri), 1 DOSE IV MONTHLY Pantoprazole (Pantoprazole Sodium), 40 MG PO BID Scheduled PRN Acetaminophen Tab (Tylenol), 325 MG PO DAILY PRN for Pain or Fever Sumatriptan Succinate (Imitrex), 100 MG PO UD PRN for Migraine Tramadol Hcl (Ultram), 50 MG PO BID PRN for Pain Allergies Coded Allergies: Morphine (Verified Adverse Reaction, Intermediate, " MAKES ME MEAN" - CONFUSION, 07/16/17) Vital Signs Date Time Temp Pulse Resp B/P (MAP) Pulse Ox O2 Delivery O2 Flow Rate FiO2 07/16/17 19:13 114 18 134/86 97 Room Air 07/16/17 18:23 36.7 115 18 121/84 99 Room Air Medications Administered Medications (Trade) Dose Ordered Sig/Melvin Route Start Time Stop Time Status Last Admin Dose Admin Hydromorphone HCl (Dilaudid Inj) 1 mg ONE STAT IM 07/16/17 18:40 07/16/17 18:42 DC 07/16/17 18:49 1 MG Prochlorperazine Edisylate (Compazine Inj) 10 mg NOW STAT IM 07/16/17 18:40 07/16/17 18:42 DC 07/16/17 18:50 10 MG Ketorolac Tromethamine (Toradol Inj) 30 mg NOW STAT IM 07/16/17 18:40 07/16/17 18:42 DC 07/16/17 18:50 30 MG Departure Information Impression Primary Impression: Migraine Dispostion Home / Self-Care Condition GOOD Referrals George Montoya M.D. (PCP) Patient Instructions My [facility] Additional Instructions Rest at home, resume prescription medications. See your own doctor in follow-up. THE TWO SHOT PER MONTH TREATMENT PLAN WILL NO LONGER BE IN PLACE AND YOUR MIGRAINES WILL NO LONGER BE TREATED WITH NARCOTICS. YOU ARE WELCOME TO RETURN AT ANY TIME YOU FEEL NECESSARY AND AT ANY TIME FOR YOUR MIGRAINES.
[2017-07-16 19:13] VITALS: BP 134/86; PULSE 114; O2SAT 97
[2017-07-22] MEDS ORDERED: METH500T3 PO (09:58)
[2017-07-22] MEDS ORDERED: PRT/40 PO (16:10)
[2017-07-22] MEDS ORDERED: NATA1INJ IV (16:15)
[2017-07-22] MEDS ORDERED: ULT/50 PO (16:39)
[2017-07-22] MEDS ORDERED: NRN800 PO (17:00)
[2017-07-22] MEDS ORDERED: AMIT75TA2 PO (17:00)
[2017-08-25] MEDS ORDERED: PRED10TA PO (16:06)
[2017-08-25] MEDS ORDERED: LORA-741 PO (16:06)
[2017-08-25] MEDS ORDERED: ULT/50 PO (16:06)
== END 2017-07-16 19:10 | disposition home or self-care (01) ==
LOC: C.EDB 18:20 → C.EDD 19:10
DX: G43.909 Migraine, unspecified, not intractable, without status migrainosus (principal); G35 Multiple sclerosis; I10 Essential (primary) hypertension; K21.9 Gastro-esophageal reflux disease without esophagitis; Z90.3 Acquired absence of stomach [part of]; Z90.710 Acquired absence of both cervix and uterus; Z79.899 Other long term (current) drug therapy

== ENCOUNTER 2017-07-22 17:06 | Emergency (ER) | payer OTHER ==
[~2017-07-22] VITALS: Ht 160 cm; Wt 40.0 kg
[~2017-07-22 17:06] MED LIST changes: +AMIT75TA2 PO; +METH500T3 PO; +NATA1INJ IV; +NRN800 PO; +PRT/40 PO; +ULT/50 PO
[2017-07-22 17:09] VITALS: TEMP 36.3; Ht 160 cm; Wt 40.0 kg
[2017-07-22] MEDS ORDERED: PIPERACILLIN/TAZOBACTAM 4.5 GM/100ML D5W IV STA (17:38)
[2017-07-22] MEDS ORDERED: SODIUM CHLORIDE 0.9% 1000ML 500 ML IV STA (17:38)
[2017-07-22] MEDS ORDERED: SODIUM CHLORIDE 0.9% 1000ML 1,000 ML IV STA (17:38)
[2017-07-22] MEDS ORDERED: MAGN400T7 PO (17:43)
[2017-07-22] MEDS ORDERED: TPM25 PO (17:43)
[2017-07-22] MEDS ORDERED: OPTIRAY 320 IV PRN (17:45)
[2017-07-22] MEDS ORDERED: ACET325T96 PO (18:20)
[2017-07-22 18:27] LABS: BASO % 0.4 %; BASO ABS # 0.03 K/uL (0-0.2); COMPLETE YES; EOS % 2.1 %; HEMATOCRIT 42.4 % (37-47); IG% 0.3 %; LYMPH % 35.1 %; LYMPH ABS # 2.79 K/uL (1.2-3.4); MEAN CELL VOLUME 94.9 fL (80-100); MEAN CORPUSCULAR HEMOGLOBIN 31.5 pg (25-34); MEAN CORPUSCULAR HGB CONC 33.3 g/dl (32-36); MEAN PLATELET VOLUME 10.3 fL (7.4-10.4); MONO % 8.6 %; NEUT % 53.5 %; PLATELET COUNT 299 K/uL (130-400); RED BLOOD COUNT 4.47 M/uL (4.2-5.4); WHITE BLOOD COUNT 7.94 K/uL (4.8-10.8)
--- NOTE | 2017-07-22 18:33 | EMERGENCY ROOM VISIT NOTE ---
History Report prepared by Fidencio: Greta Stearns Under the Supervision of: Dr. Jason Byers M.D. First contact with patient: 17:34 Chief Complaint: WOUND INFECTION Stated Complaint: OPEN SORE ON TAILBONE Nursing Triage Summary: Pt has a pressure ulcer on her sacrum x1 week because of low mobility, had appt with pcp yesterday but was unable to make it, presents here today for wound check and pain control. History of Present Illness The patient is a 72 year old female who presents to the Emergency Room with complaints of a worsening wound infection starting a week ago. The patient's states that his has an ulcer on her buttock that started a week ago. He states that he has not seen any drainage and that the patient has never had an ulcer there before. He notes that the patient has not been drinking enough liquids recently and states that the patient sometimes has difficulty swallowing food. The patient denies a fever and vomiting. The patient notes that she does not walk anymore due to her MS. Source of History: patient, spouse/significant other Onset: a week ago Position: buttock Quality: other (global) Timing: worsening Associated Symptoms: No fevers, No vomiting Note: The patient complains of difficulty swallowing food. Review of Systems See HPI for pertinent positives & negatives. A total of 10 systems reviewed and were otherwise negative. Past Medical & Surgical Medical Problems: (1) Benign hypertension (2) Chronic peptic ulcer (3) Hysterectomy (4) Intertrochanteric fracture of right hip (5) Intertrochanteric fracture of right hip (6) Migraine (7) Multiple sclerosis (8) Multiple sclerosis (9) Multiple sclerosis exacerbation (10) non cardiac chest pain related to gi (11) Sepsis (12) STAPHYLOCOCCAL SEPTICEMIA, NEC (13) UTI (urinary tract infection) Surgical Problems: (1) S/P partial gastrectomy Family History Diabetes mellitus FH: cholecystectomy FHx: heart disease Social History Smoking Status: Former Smoker Alcohol Use: none Drug Use: none Marital Status: Housing Status: lives with family Occupation Status: retired Current/Historical Medications Scheduled Alendronate Sodium (Alendronate Sodium), 70 MG PO WK Amitriptyline Hcl (Elavil), 75 MG PO HS Amoxicillin & Pot Clavulanate (Augmentin 875-125 mg), 875 MG PO BID Cholecalciferol (Vitamin D3), 4,000 INTER.UNIT PO TID Ferrous Sulfate (Ferrous Sulfate), 325 MG PO BID Gabapentin (Gabapentin), 800 MG PO TID Magnesium Oxide (Mg Supplement (Magnesium Oxide), 241.3 MG PO DAILY Methylcellulose (Laxative) (Citrucel), 2,000 MG PO QAM Midodrine Hcl (Midodrine Hcl), 5 MG PO TID Mirtazapine (Mirtazapine), 45 MG PO HS Natalizumab (Tysabri), 1 DOSE IV MONTHLY Pantoprazole (Pantoprazole Sodium), 40 MG PO BID Topiramate (Topiramate), 25 MG PO BID Scheduled PRN Acetaminophen Tab (Tylenol), 325 MG PO DAILY PRN for Pain or Fever Sumatriptan Succinate (Imitrex), 100 MG PO UD PRN for Migraine Tramadol Hcl (Ultram), 50 MG PO BID PRN for Pain Allergies Coded Allergies: Morphine (Verified Adverse Reaction, Intermediate, " MAKES ME MEAN" - CONFUSION, 07/16/17) Physical Exam Vital Signs Date Time Temp Pulse Resp B/P (MAP) Pulse Ox O2 Delivery O2 Flow Rate FiO2 07/22/17 20:14 87 18 130/76 95 07/22/17 17:09 36.3 92 18 135/73 94 Room Air Physical Exam GENERAL: Patient is in no acute distress. HEENT: No acute trauma, normocephalic atraumatic, mucous membranes dry, no nasal congestion, no scleral icterus. NECK: No stridor, no adenopathy, no meningismus, trachea is midline. LUNGS: Clear to auscultation bilaterally, no wheeze, no rhonchi, breath sounds equal. HEART: Without murmurs gallops or rubs, regular rate and rhythm. ABDOMEN: Soft, nontender, bowel sounds positive, no hernias, no peritonitis. BUTTOCK: 3 cm sacral ulcer without drainage. There is surrounding erythema and warmth extending down towards the rectum. Area is tender. EXTREMITIES: No cyanosis or edema, full range of motion of all the joints without pain or difficulty, no signs for acute trauma. NEUROLOGIC: Limited use of lower extremities secondary to MS. Awake, alert, oriented x3. SKIN: No rash, no jaundice, no diaphoresis. Medical Decision & Procedures ER Provider Diagnostic Interpretation: Radiology results as stated below per my review and radiologist interpretation: PELVIS W/IV CONT ONLY (CT) CLINICAL HISTORY: Infection Sacral ulcer TECHNIQUE: Transaxial acquisition with multi axial reformatted images COMPARISON STUDY: 05/15/2015 FINDINGS: Extensive postoperative changes including laminectomy and fusion and disc spaces throughout the entire lumbar region. Nonobstructing lower pole right renal calcification. Left renal cyst. Bowel pattern overall is nonobstructive. Multiple bone graft sites at the right medial right iliac weighing. Patient is status post bilateral hip pain. Appears to be a midline ulceration extending to but not definitively involving the sacrococcygeal region. No definite evidence for osteomyelitis is present. Moderate bladder wall trabeculation and mild bladder thickening. No evidence for true lytic or blastic process of the osseous structures. IMPRESSION: 1. Posterior sacral soft tissue ulceration 2. No definite evidence for bony destructive change or osteomyelitis. 3 no evidence for drainable abscess or collection. 4. Extensive chronic and postoperative change throughout the bony pelvis, hips, as well as lumbosacral spine. The above report was generated using voice recognition software. It may contain grammatical, syntax or spelling errors. Electronically signed by: Geovany De Jesus M.D. 07/22/2017 7:39 PM Dictated Date/Time: 07/22/2017 7:34 PM Laboratory Results 07/22/17 18:05 Red Blood Count 4.47, Mean Corpuscular Volume 94.9, Mean Corpuscular Hemoglobin 31.5, Mean Corpuscular Hemoglobin Concent 33.3, Mean Platelet Volume 10.3, Neutrophils (%) (Auto) 53.5, Lymphocytes (%) (Auto) 35.1, Monocytes (%) (Auto) 8.6, Eosinophils (%) (Auto) 2.1, Basophils (%) (Auto) 0.4, Neutrophils # (Auto) 4.25, Lymphocytes # (Auto) 2.79, Monocytes # (Auto) 0.68, Eosinophils # (Auto) 0.17, Basophils # (Auto) 0.03 07/22/17 18:05 Test 07/22/17 18:05 07/22/17 18:10 07/22/17 18:32 White Blood Count 7.94 K/uL (4.8-10.8) Red Blood Count 4.47 M/uL (4.2-5.4) Hemoglobin 14.1 g/dL (12.0-16.0) Hematocrit 42.4 % (37-47) Mean Corpuscular Volume 94.9 fL (80-100) Mean Corpuscular Hemoglobin 31.5 pg (25-34) Mean Corpuscular Hemoglobin Concent 33.3 g/dl (32-36) Platelet Count 299 K/uL (130-400) Mean Platelet Volume 10.3 fL (7.4-10.4) Neutrophils (%) (Auto) 53.5 % Lymphocytes (%) (Auto) 35.1 % Monocytes (%) (Auto) 8.6 % Eosinophils (%) (Auto) 2.1 % Basophils (%) (Auto) 0.4 % Neutrophils # (Auto) 4.25 K/uL (1.4-6.5) Lymphocytes # (Auto) 2.79 K/uL (1.2-3.4) Monocytes # (Auto) 0.68 K/uL (0.11-0.59) Eosinophils # (Auto) 0.17 K/uL (0-0.5) Basophils # (Auto) 0.03 K/uL (0-0.2) RDW Standard Deviation 50.7 fL (36.4-46.3) RDW Coefficient of Variation 14.7 % (11.5-14.5) Immature Granulocyte % (Auto) 0.3 % Immature Granulocyte # (Auto) 0.02 K/uL (0.00-0.02) Prothrombin Time 11.2 SECONDS (9.0-12.0) Prothromb Time International Ratio 1.0 (0.9-1.1) Activated Partial Thromboplast Time 33.8 SECONDS (21.0-31.0) Partial Thromboplastin Ratio 1.3 Anion Gap 6.0 mmol/L (3-11) Est Creatinine Clear Calc Drug Dose 73.5 ml/min Estimated GFR () 117.7 Estimated GFR (Non- 101.5 BUN/Creatinine Ratio 34.9 (10-20) Calcium Level 7.9 mg/dl (8.5-10.1) Total Bilirubin 0.2 mg/dl (0.2-1) Aspartate Amino Transf (AST/SGOT) 28 U/L (15-37) Alanine Aminotransferase (ALT/SGPT) 23 U/L (12-78) Alkaline Phosphatase 148 U/L (45-117) Total Protein 4.5 gm/dl (6.4-8.2) Albumin 1.8 gm/dl (3.4-5.0) Globulin 2.7 gm/dl (2.5-4.0) Albumin/Globulin Ratio 0.7 (0.9-2) Urine Color YELLOW Urine Appearance CLOUDY (CLEAR) Urine pH 6.5 (4.5-7.5) Urine Specific [place] 1.022 (1.000-1.030) Urine Protein NEG (NEG) Urine Glucose (UA) NEG (NEG) Urine Ketones NEG (NEG) Urine Occult Blood TRACE (NEG) Urine Nitrite NEG (NEG) Urine Bilirubin NEG (NEG) Urine Urobilinogen NEG (NEG) Urine Leukocyte Esterase LARGE (NEG) Urine WBC (Auto) >30 /hpf (0-5) Urine RBC (Auto) 0-4 /hpf (0-4) Urine Hyaline Casts (Auto) 1-5 /lpf (0-5) Urine Epithelial Cells (Auto) 0-5 /lpf (0-5) Urine Bacteria (Auto) NEG (NEG) Lactic Acid Level 1.7 mmol/L (0.4-2.0) Laboratory results reviewed by me. Medications Administered Medications (Trade) Dose Ordered Sig/Melvin Route Start Time Stop Time Status Last Admin Dose Admin Sodium Chloride 500 ml @ 999 mls/hr Q31M STAT IV 07/22/17 17:38 07/22/17 18:08 DC 07/22/17 18:04 999 MLS/HR Sodium Chloride 1,000 ml @ 100 mls/hr Q10H STAT IV 07/22/17 17:38 07/23/17 03:37 07/22/17 18:37 100 MLS/HR Piperacillin Sod/ Tazobactam Sod (Zosyn Iv) 4.5 gm NOW STAT IV 07/22/17 17:38 07/22/17 17:42 DC 07/22/17 18:37 4.5 GM Amoxicillin/ Clavulanate Potassium (Augmentin Tab) 875 mg BID ONCE PO 07/22/17 21:00 07/22/17 21:01 DC 07/22/17 20:13 875 MG Heparin Sodium (Porcine) (Heparin 100 Unit/ml 5ml Flush) 5 ml STK-MED ONCE .ROUTE 07/22/17 20:03 07/22/17 20:04 DC 07/22/17 20:03 5 ML ED Course 1735: The patient was evaluated in room C4. A complete history and physical exam was performed. 1737: Ordered Zosyn Iv 4.5 gm IV, NSS 1000 ml @ 100 mls/hr IV, NSS 500 ml @ 999 mls/hr IV. 1946: Reevaluated the patient and she does not want to stay in the hospital. She states she will come back if it gets worse and notes she has an appointment next week with her PCP. Discussed results and discharge instructions: She verbalized understanding and agreement. The patient is ready for discharge. 2100: Ordered Augmentin Tab 875 mg PO. Medical Decision Differential diagnoses include osteomyelitis, sacral ulcer, dehydration, bacteremia, sepsis, UTI, electrolyte imbalance. There is no leukocytosis or concerning anemia. No significant electrolyte abnormality, kidney failure or hepatitis. Lactic acid level is not elevated making sepsis less likely. Blood cultures are pending. Urinalysis shows possible infection, urine culture is pending. Pelvis CT does not show any evidence for osteomyelitis in the area of the sacral ulcer, there was no abscess. The patient received IV saline, she was given IV Zosyn. She was offered a hospital stay but would like to go home. She will be discharged on Augmentin. She has an appointment to see her doctor next week. She has agreed to return here for worsening symptoms or if not improving. Impression Primary Impression: Sacral ulcer Additional Impressions: Cellulitis UTI (urinary tract infection) Scribe Attestation The scribe's documentation has been prepared under my direction and personally reviewed by me in its entirety. I confirm that the note above accurately reflects all work, treatment, procedures, and medical decision making performed by me. Departure Information Dispostion Home / Self-Care Prescriptions Amoxicillin & Pot Clavulanate (Augmentin 875-125 mg) 1 Tab Tab 875 MG PO BID for 10 Days, #20 TAB Prov: Jason Byers M.D. 07/22/17 Referrals George Montoya M.D. (PCP) Forms HOME CARE DOCUMENTATION FORM, IMPORTANT VISIT INFORMATION, WORK / SCHOOL INSTRUCTIONS Patient Instructions My [facility] Additional Instructions stay hydrated augmentin 2x per day for 10 days see your doctor for a recheck this week return for fever, vomiting or if worsening lab testing was ok today Problem Qualifiers
[2017-07-22 18:34] LABS: PARTIAL THROMBOPLASTIN RATIO 1.3; PROTHROMBIN TIME (PATIENT) 11.2 SECONDS (9.0-12.0)
[2017-07-22] MEDS ORDERED: FERR325T PO (18:34)
[2017-07-22 18:45] LABS: BUN/CREATININE RATIO 34.9 (10-20); CALCIUM 7.9 mg/dl (8.5-10.1); CREATININE 0.45 mg/dl (0.60-1.20); POTASSIUM 3.5 mmol/L (3.5-5.1)
[2017-07-22 18:48] LABS: ALB/GLOB RATIO 0.7 (0.9-2)
[2017-07-22 18:51] LABS: URINE APPEARANCE CLOUDY (CLEAR); URINE BILIRUBIN NEG (NEG); URINE COLOR YELLOW; URINE EPITHELIAL CELL AUTO 0-5 /lpf (0-5); URINE NITRITE NEG (NEG); URINE PH 6.5 (4.5-7.5); URINE SPECIFIC GRAVITY 1.022 (1.000-1.030); UROBILINOGEN NEG (NEG); ZZURINE CULT IF INDIC CATH YES
[2017-07-22 18:55] LABS: MANUAL MICROSCOPIC REQUIRED? NO; REVIEW REQ? NO
[2017-07-22] MEDS ORDERED: CHOL1000 PO (19:00)
--- NOTE | 2017-07-22 19:40 | DIAGNOSTIC IMAGING REPORT ---
PELVIS W/IV CONT ONLY (CT) CLINICAL HISTORY: Infection Sacral ulcer TECHNIQUE: Transaxial acquisition with multi axial reformatted images COMPARISON STUDY: 05/15/2015 FINDINGS: Extensive postoperative changes including laminectomy and fusion and disc spaces throughout the entire lumbar region. Nonobstructing lower pole right renal calcification. Left renal cyst. Bowel pattern overall is nonobstructive. Multiple bone graft sites at the right medial right iliac weighing. Patient is status post bilateral hip pain. Appears to be a midline ulceration extending to but not definitively involving the sacrococcygeal region. No definite evidence for osteomyelitis is present. Moderate bladder wall trabeculation and mild bladder thickening. No evidence for true lytic or blastic process of the osseous structures. IMPRESSION: 1. Posterior sacral soft tissue ulceration 2. No definite evidence for bony destructive change or osteomyelitis. 3 no evidence for drainable abscess or collection. 4. Extensive chronic and postoperative change throughout the bony pelvis, hips, as well as lumbosacral spine. The above report was generated using voice recognition software. It may contain grammatical, syntax or spelling errors. Electronically signed by: Geovany De Jesus M.D. 07/22/2017 7:39 PM Dictated Date/Time: 07/22/2017 7:34 PM
[2017-07-22] MEDS ORDERED: AMOX875T PO (19:54)
[2017-07-22 20:14] VITALS: BP 130/76; PULSE 87; O2SAT 95
[2017-07-22] MEDS ORDERED: AMOXICILLIN/CLAVULANATE TAB 875 MG TAB PO ONE (21:00)
[2017-07-22] MEDS ORDERED: FSM70 PO (21:40)
[2017-07-22] MEDS ORDERED: MIDO5TAB PO (21:40)
[2017-07-22] MEDS ORDERED: MIRT45TA3 PO (21:40)
[2017-07-22] MEDS ORDERED: IMT100 PO (21:44)
--- NOTE | 2017-07-24 14:49 | Pharmacy Progress Note ---
ED Pharmacist Culture FollowUp Date of Service: Jul 24, 2017. Patient was sent home with a prescription for Augmentin 875mg PO BID x 10 days, which should cover the enterococcus faecalis growing from the patient's URINE culture.
[2017-08-25] MEDS ORDERED: PRED10TA PO (16:06)
[2017-08-25] MEDS ORDERED: ULT/50 PO (16:06)
[2017-08-25] MEDS ORDERED: LORA-741 PO (16:06)
== END 2017-07-22 20:16 | disposition home or self-care (01) ==
LOC: C.EDB 17:08 → C.EDC 20:16
DX: L89.159 Pressure ulcer of sacral region, unspecified stage (principal); L03.818 Cellulitis of other sites; G35 Multiple sclerosis; I10 Essential (primary) hypertension; Z79.899 Other long term (current) drug therapy; Z86.19 Personal history of other infectious and parasitic diseases; Z87.11 Personal history of peptic ulcer disease; Z87.440 Personal history of urinary (tract) infections; Z87.891 Personal history of nicotine dependence; Z82.49 Family history of ischemic heart disease and other diseases of the circulatory system; Z83.3 Family history of diabetes mellitus

== ENCOUNTER 2017-07-23 11:02 | Inpatient (IN) | payer OTHER ==
[~2017-07-23] VITALS: Ht 152.4 cm; Wt 43.9 kg
[~2017-07-23 11:02] MED LIST changes: +ACET325T96 PO; +AMOX875T PO; +CHOL1000 PO; +FERR325T PO; +FSM70 PO; +IMT100 PO; -MAGN400T6 PO; +MAGN400T7 PO; +MIDO5TAB PO; +MIRT45TA3 PO; +TPM25 PO
[2017-07-23] MEDS ORDERED: SODIUM CHLORIDE 0.9% 500ML 500 ML IV STA (12:06)
[2017-07-23] MEDS ORDERED: SODIUM CHLORIDE 0.9% 1000ML 1,000 ML IV STA (12:06)
[2017-07-23] MEDS ORDERED: VANCOMYCIN 1GM/270ML NSS IV STA (12:09)
[2017-07-23] MEDS ORDERED: AMPICILLIN/SULBACTAM SOD INJ 3,000 MG in SODIUM CHLORIDE 0.9% 100ML 100 ML IV ONE (12:15)
[2017-07-23 12:33] LABS: BASO % 0.3 %; BASO ABS # 0.04 K/uL (0-0.2); COMPLETE YES; EOS % 1.1 %; HEMATOCRIT 40.9 % (37-47); IG% 0.3 %; LYMPH % 18.9 %; LYMPH ABS # 2.85 K/uL (1.2-3.4); MEAN CELL VOLUME 95.8 fL (80-100); MEAN CORPUSCULAR HEMOGLOBIN 31.1 pg (25-34); MEAN CORPUSCULAR HGB CONC 32.5 g/dl (32-36); MEAN PLATELET VOLUME 10.5 fL (7.4-10.4); MONO % 5.8 %; NEUT % 73.6 %; PLATELET COUNT 288 K/uL (130-400); RED BLOOD COUNT 4.27 M/uL (4.2-5.4); WHITE BLOOD COUNT 15.07 K/uL (4.8-10.8)
[2017-07-23 12:52] LABS: ALT/SGPT 22 U/L (12-78); AST/SGOT 17 U/L (15-37); BLOOD UREA NITROGEN 13 mg/dl (7-18); BUN/CREATININE RATIO 28.7 (10-20); CARBON DIOXIDE 29 mmol/L (21-32); CHLORIDE 107 mmol/L (98-107); CREATININE 0.46 mg/dl (0.60-1.20); GLUCOSE 80 mg/dl (70-99); MAGNESIUM 1.9 mg/dl (1.8-2.4); POTASSIUM 3.5 mmol/L (3.5-5.1); SODIUM 143 mmol/L (136-145)
[2017-07-23 13:00] LABS: INR 1.1 (0.9-1.1); PARTIAL THROMBOPLASTIN RATIO 1.3; PROTHROMBIN TIME (PATIENT) 11.6 SECONDS (9.0-12.0)
[2017-07-23 13:03] LABS: ALKALINE PHOSPHATASE 139 U/L (45-117)
[2017-07-23] MEDS ORDERED: ALUMINUM/MAGNESIUM/SIMETH (MAALOX MAX) 30 ML UDC PO PRN (15:15)
[2017-07-23] MEDS ORDERED: ACETAMINOPHEN 325 MG TAB PO PRN (15:15)
[2017-07-23] MEDS ORDERED: MAGNESIUM HYDROXIDE SUSP 30 ML UDC PO PRN (15:15)
[2017-07-23] MEDS ORDERED: ONDANSETRON INJ 2 MG/ML 2 ML VIAL IV PRN (15:15)
[2017-07-23] MEDS ORDERED: POLYETHYLENE (MIRALAX) 17 GM PACK PO PRN (15:15)
[2017-07-23] MEDS ORDERED: KETOROLAC TROMETHAMINE 30 MG/ML VIAL IV STA (16:04)
--- NOTE | 2017-07-23 16:05 | EMERGENCY ROOM VISIT NOTE ---
History Report prepared by Fidencio: Rossy Perrin Under the Supervision of: Dr. Roman Fuchs M.D. First contact with patient: 11:57 Chief Complaint: ILLNESS Stated Complaint: WEAKNESS History of Present Illness The patient is a 72 year old female who presents to the Emergency Room with complaints of sudden weakness beginning today. The patient was seen in the ED yesterday for a urinary infection and was sent home on Augmentin. The patient did not take Augmentin or any pills today. Per family, the patient seemed confused and lethargic today. Pt denies LOC, headache, fevers, chills, diaphoresis, visual changes, neck pain, chest pain, breathing difficulties, nausea, vomiting, abdominal pain, back pain, melena, hematochezia, numbness, lymphadenopathy, rash, or other complaints. Source of History: patient, family Onset: today Position: other (global) Quality: other (weakness) Timing: other (sudden) Associated Symptoms: No fevers Review of Systems See HPI for pertinent positives and negatives. A total of ten systems were reviewed and were otherwise negative. Past Medical & Surgical Medical Problems: (1) Altered mental status (2) Altered mental status, unspecified (3) Benign hypertension (4) Chronic peptic ulcer (5) Hysterectomy (6) Intertrochanteric fracture of right hip (7) Intertrochanteric fracture of right hip (8) Migraine (9) Multiple sclerosis (10) Multiple sclerosis (11) Multiple sclerosis exacerbation (12) non cardiac chest pain related to gi (13) Sepsis (14) STAPHYLOCOCCAL SEPTICEMIA, NEC (15) UTI (urinary tract infection) Surgical Problems: (1) S/P partial gastrectomy Family History Diabetes mellitus FH: cholecystectomy FHx: heart disease Social History Smoking Status: Former Smoker Alcohol Use: none Drug Use: none Marital Status: Housing Status: lives with family Occupation Status: retired Current/Historical Medications Scheduled Alendronate Sodium (Alendronate Sodium), 70 MG PO WK Amitriptyline Hcl (Elavil), 75 MG PO HS Amoxicillin & Pot Clavulanate (Augmentin 875-125 mg), 875 MG PO BID Cholecalciferol (Vitamin D3), 4,000 INTER.UNIT PO TID Ferrous Sulfate (Ferrous Sulfate), 325 MG PO BID Gabapentin (Gabapentin), 800 MG PO TID Magnesium Oxide (Mg Supplement (Magnesium Oxide), 241.3 MG PO DAILY Methylcellulose (Laxative) (Citrucel), 2,000 MG PO QAM Midodrine Hcl (Midodrine Hcl), 5 MG PO TID Mirtazapine (Mirtazapine), 45 MG PO HS Natalizumab (Tysabri), 1 DOSE IV MONTHLY Pantoprazole (Pantoprazole Sodium), 40 MG PO BID Topiramate (Topiramate), 25 MG PO BID Scheduled PRN Acetaminophen Tab (Tylenol), 325 MG PO DAILY PRN for Pain or Fever Sumatriptan Succinate (Imitrex), 100 MG PO UD PRN for Migraine Tramadol Hcl (Ultram), 50 MG PO BID PRN for Pain Allergies Coded Allergies: Morphine (Verified Adverse Reaction, Intermediate, " MAKES ME MEAN" - CONFUSION, 07/23/17) Physical Exam Vital Signs Date Time Temp Pulse Resp B/P (MAP) Pulse Ox O2 Delivery O2 Flow Rate FiO2 07/23/17 15:57 101 16 119/71 94 Room Air 07/23/17 14:00 100 15 101/68 94 07/23/17 13:31 97 15 107/63 93 07/23/17 13:00 90 127/77 99 07/23/17 12:30 96 118/88 95 07/23/17 12:00 97 115/80 94 07/23/17 11:48 93 Room Air 07/23/17 11:30 103 120/71 92 07/23/17 11:27 97 07/23/17 11:12 36.6 100 19 120/74 94 Room Air Pain Rating (0-10): 7.0 Physical Exam GENERAL: Awake, alert, frail appearing, generalized weakness HENT: Normocephalic, atraumatic. Oropharynx unremarkable. EYES: Normal conjunctiva. Sclera non-icteric. NECK: Supple. No nuchal rigidity. FROM. No JVD. RESPIRATORY: Clear to auscultation. CARDIAC: Borderline tachycardic, normal rhythm. Extremities warm and well perfused. Pulses equal. ABDOMEN: Soft, non-distended. Mild suprapubic tenderness. No rebound or guarding. No masses. RECTAL: Deferred. MUSCULOSKELETAL: Chest examination reveals no tenderness. The back is symmetrical on inspection without obvious abnormality. There is no CVA tenderness to palpation. No joint edema. LOWER EXTREMITIES: Calves are equal size bilaterally and non-tender. 1+ edema. No discoloration. 3.5/5 strength. NEURO: Normal sensorium. No sensory or motor deficits noted. SKIN: No rash or jaundice noted. Medical Decision & Procedures Laboratory Results 07/23/17 11:20 Red Blood Count 4.27, Mean Corpuscular Volume 95.8, Mean Corpuscular Hemoglobin 31.1, Mean Corpuscular Hemoglobin Concent 32.5, Mean Platelet Volume 10.5, Neutrophils (%) (Auto) 73.6, Lymphocytes (%) (Auto) 18.9, Monocytes (%) (Auto) 5.8, Eosinophils (%) (Auto) 1.1, Basophils (%) (Auto) 0.3, Neutrophils # (Auto) 11.09, Lymphocytes # (Auto) 2.85, Monocytes # (Auto) 0.88, Eosinophils # (Auto) 0.17, Basophils # (Auto) 0.04 07/23/17 11:20 Test 07/23/17 11:20 07/23/17 12:35 White Blood Count 15.07 K/uL (4.8-10.8) Red Blood Count 4.27 M/uL (4.2-5.4) Hemoglobin 13.3 g/dL (12.0-16.0) Hematocrit 40.9 % (37-47) Mean Corpuscular Volume 95.8 fL (80-100) Mean Corpuscular Hemoglobin 31.1 pg (25-34) Mean Corpuscular Hemoglobin Concent 32.5 g/dl (32-36) Platelet Count 288 K/uL (130-400) Mean Platelet Volume 10.5 fL (7.4-10.4) Neutrophils (%) (Auto) 73.6 % Lymphocytes (%) (Auto) 18.9 % Monocytes (%) (Auto) 5.8 % Eosinophils (%) (Auto) 1.1 % Basophils (%) (Auto) 0.3 % Neutrophils # (Auto) 11.09 K/uL (1.4-6.5) Lymphocytes # (Auto) 2.85 K/uL (1.2-3.4) Monocytes # (Auto) 0.88 K/uL (0.11-0.59) Eosinophils # (Auto) 0.17 K/uL (0-0.5) Basophils # (Auto) 0.04 K/uL (0-0.2) RDW Standard Deviation 51.6 fL (36.4-46.3) RDW Coefficient of Variation 14.8 % (11.5-14.5) Immature Granulocyte % (Auto) 0.3 % Immature Granulocyte # (Auto) 0.04 K/uL (0.00-0.02) Nucleated RBC Absolute Count (auto) 0.06 K/uL (0-0) Nucleated Red Blood Cells % 0.4 % Prothrombin Time 11.6 SECONDS (9.0-12.0) Prothromb Time International Ratio 1.1 (0.9-1.1) Activated Partial Thromboplast Time 33.1 SECONDS (21.0-31.0) Partial Thromboplastin Ratio 1.3 Anion Gap 7.0 mmol/L (3-11) Est Creatinine Clear Calc Drug Dose 79.2 ml/min Estimated GFR () 116.8 Estimated GFR (Non- 100.8 BUN/Creatinine Ratio 28.7 (10-20) Calcium Level 8.0 mg/dl (8.5-10.1) Magnesium Level 1.9 mg/dl (1.8-2.4) Total Bilirubin 0.3 mg/dl (0.2-1) Direct Bilirubin < 0.1 mg/dl (0-0.2) Aspartate Amino Transf (AST/SGOT) 17 U/L (15-37) Alanine Aminotransferase (ALT/SGPT) 22 U/L (12-78) Alkaline Phosphatase 139 U/L (45-117) Troponin I 0.034 ng/ml (0-0.045) Total Protein 4.3 gm/dl (6.4-8.2) Albumin 1.7 gm/dl (3.4-5.0) Lipase 30 U/L (73-393) Thyroid Stimulating Hormone (TSH) 1.370 uIu/ml (0.300-4.500) Bedside Lactic Acid Venous 1.16 mmol/L (0.90-1.70) Laboratory results reviewed by me Medications Administered Medications (Trade) Dose Ordered Sig/Melvin Route Start Time Stop Time Status Last Admin Dose Admin Sodium Chloride 1,000 ml @ 125 mls/hr Q8H STAT IV 07/23/17 12:06 07/23/17 20:05 07/23/17 12:24 125 MLS/HR Sodium Chloride 500 ml @ 999 mls/hr Q31M STAT IV 07/23/17 12:06 07/23/17 12:36 DC 07/23/17 12:06 999 MLS/HR Ampicillin Sodium/ Sulbactam Sodium 3000 mg/Sodium Chloride 108 ml @ 200 mls/hr ONE ONCE IV 07/23/17 12:15 07/23/17 12:47 DC 07/23/17 14:58 200 MLS/HR Vancomycin HCl (Vancomycin 1gm/ 270ml Nss) 1 gm NOW STAT IV 07/23/17 12:09 07/23/17 12:11 DC 07/23/17 12:25 1 GM ECG Indication: weakness Rate (beats per minute): 96 Rhythm: normal sinus Findings: T-wave inversion (Anterolateral) Comparison ECG Date: T- wave inversions are new compared to old ECG's ED Course 1204: The patient was evaluated in room B5. A complete history and physical exam was performed. 1206: Ordered Sodium Chloride 500 ml @ 999 mls/hr IV, Sodium Chloride 1,000 ml @ 125 mls/hr IV. 1209: Ordered Vancomycin HCl 1 mg IV. 1215: Ordered Ampicillin Sodium/Sulbactam Sodium 3,000 mg/Sodium Chloride 108 ml @ 200 mls/hr IV. 1456: Discussed the patient's case with Dr. Sheridan. The patient will be evaluated for further treatment and disposition. 1510: Upon reexamination, the patient was resting. I discussed the test results and treatment plan with her. The patient will be evaluated for further management. Medical Decision Triage Nursing notes reviewed. The patient's presentation and history were concerning for worsening weakness. Etiologies such as metabolic, infection, hypo/hyperglycemia, electrolyte abnormalities, cardiac sources, intracerebral event, toxicologic, neurologic, as well as others were entertained. The patient was evaluated. Clinically she was generally weak and not doing well at home. She refused admission yesterday. Based upon her prior history of enterococcus and close UTI. She was given Unasyn and vancomycin. She was hydrated. Her CBC revealed a leukocytosis. Chemistry panel was unremarkable. She did have hyperammonemia noted. The patient was reassessed. She did request Toradol for pain and this was given. Consultation was made with internal medicine. The patient was evaluated in the Emergency Room for further management. Medication Reconcilliation Current Medication List: was personally reviewed by me Blood Pressure Screening Patient's blood pressure: Normal blood pressure Consults Time Called: 1450 Consulting Physician: Dr. Fatimah Nuñez [facility] Returned Call: [phone] Discussed the patient's case. The patient will be evaluated for further treatment and disposition. Impression Primary Impression: UTI (urinary tract infection) Additional Impression: Weakness Scribe Attestation The scribe's documentation has been prepared under my direction and personally reviewed by me in its entirety. I confirm that the note above accurately reflects all work, treatment, procedures, and medical decision making performed by me. Departure Information Dispostion Being Evaluated By Hospitalist Referrals George Montoya M.D. (PCP) Patient Instructions My [facility] Problem Qualifiers
--- NOTE | 2017-07-23 16:07 | Pharmacy Progress Note ---
Pharmacy Antibiotic Consult Date of Service: Jul 23, 2017. Pharmacy Dosing Scope Pharmacy is consulted to initiate vancomycin IV dosing therapy, order appropriate labs and adjust drug dose/frequency. Subjective The patient is a 72 year old female admitted on 07/23/17 . Objective Height (Feet): 5 Weight (Kilograms): 44.100 Lab Results (24hrs): Test 07/23/17 11:20 07/23/17 12:35 White Blood Count 15.07 K/uL (4.8-10.8) Red Blood Count 4.27 M/uL (4.2-5.4) Hemoglobin 13.3 g/dL (12.0-16.0) Hematocrit 40.9 % (37-47) Mean Corpuscular Volume 95.8 fL (80-100) Mean Corpuscular Hemoglobin 31.1 pg (25-34) Mean Corpuscular Hemoglobin Concent 32.5 g/dl (32-36) Platelet Count 288 K/uL (130-400) Mean Platelet Volume 10.5 fL (7.4-10.4) Neutrophils (%) (Auto) 73.6 % Lymphocytes (%) (Auto) 18.9 % Monocytes (%) (Auto) 5.8 % Eosinophils (%) (Auto) 1.1 % Basophils (%) (Auto) 0.3 % Neutrophils # (Auto) 11.09 K/uL (1.4-6.5) Lymphocytes # (Auto) 2.85 K/uL (1.2-3.4) Monocytes # (Auto) 0.88 K/uL (0.11-0.59) Eosinophils # (Auto) 0.17 K/uL (0-0.5) Basophils # (Auto) 0.04 K/uL (0-0.2) RDW Standard Deviation 51.6 fL (36.4-46.3) RDW Coefficient of Variation 14.8 % (11.5-14.5) Immature Granulocyte % (Auto) 0.3 % Immature Granulocyte # (Auto) 0.04 K/uL (0.00-0.02) Nucleated RBC Absolute Count (auto) 0.06 K/uL (0-0) Nucleated Red Blood Cells % 0.4 % Prothrombin Time 11.6 SECONDS (9.0-12.0) Prothromb Time International Ratio 1.1 (0.9-1.1) Activated Partial Thromboplast Time 33.1 SECONDS (21.0-31.0) Partial Thromboplastin Ratio 1.3 Sodium Level 143 mmol/L (136-145) Potassium Level 3.5 mmol/L (3.5-5.1) Chloride Level 107 mmol/L (98-107) Carbon Dioxide Level 29 mmol/L (21-32) Anion Gap 7.0 mmol/L (3-11) Blood Urea Nitrogen 13 mg/dl (7-18) Creatinine 0.46 mg/dl (0.60-1.20) Est Creatinine Clear Calc Drug Dose 79.2 ml/min Estimated GFR () 116.8 Estimated GFR (Non- 100.8 BUN/Creatinine Ratio 28.7 (10-20) Random Glucose 80 mg/dl (70-99) Calcium Level 8.0 mg/dl (8.5-10.1) Magnesium Level 1.9 mg/dl (1.8-2.4) Total Bilirubin 0.3 mg/dl (0.2-1) Direct Bilirubin < 0.1 mg/dl (0-0.2) Aspartate Amino Transf (AST/SGOT) 17 U/L (15-37) Alanine Aminotransferase (ALT/SGPT) 22 U/L (12-78) Alkaline Phosphatase 139 U/L (45-117) Troponin I 0.034 ng/ml (0-0.045) Total Protein 4.3 gm/dl (6.4-8.2) Albumin 1.7 gm/dl (3.4-5.0) Lipase 30 U/L (73-393) Thyroid Stimulating Hormone (TSH) 1.370 uIu/ml (0.300-4.500) Bedside Lactic Acid Venous 1.16 mmol/L (0.90-1.70) Assessment & Plan Assessment: 72 yo female with PMH of MS, migraines, GERD, PUD, orthostatic hypotension Seen in ED on 07/22 for weakness/dysuria, declined admit, discharged with augmentin which she reportedly did not start taking Urine Culture from 07/22 growing G+ cocci Patient has history of enterococcal UTIs BC from 07/22 pending WBC 15, Neut 11, Afebrile on admission Starting Unasyn/Vancomycin for UTI Plan: Loading dose: 1000 mg x 1 in ED (~23 mg/kg) Maintenance Dose: 750 mg q12H PK: SCr 0.46, CrCl 79.2, Ke 0.070, T1/2~9 hours Patient previously here in 2012, subtherapeutic trough on 800 mg q18H Goal trough level 15-20 mcg/mL Trough level has been ordered or 07/25 @ 1130 Pharmacy will continue to follow and will adjust dose/frequency as necessary. Thank you
--- NOTE | 2017-07-23 16:13 | History and Physical ---
History & Physical Date & Time of Service: Jul 23, 2017 at 15:40 Chief Complaint: Weakness Primary Care Physician: George Montoya M.D. History of Present Illness Source: patient 72 y/o F Hx MS, Migraines, GERD, PUD, orthostatic hypotension - wheelchair bound - presented to the ER one day prior with weakness and dysuria. Pt was D/ Cd with Augmentin. She did not comply with her meds, possibly due to confusion , per her family. She is lethargic but awake and alert at the time of evaluation. She complains mostly of weakness which acutely worsened this AM . She has frequent UTIs and weakness is not unusual for her during an infection which can exacerbate her MS symptoms. She denies confirmed fevers/rigors, SOB, CP, MCKEON, N/V. Past Medical/Surgical History Medical Problems: (1) Benign hypertension Status: Chronic (2) Chronic peptic ulcer Status: Chronic (3) Hysterectomy Status: Resolved (4) Migraine Status: Chronic (5) Multiple sclerosis Status: Chronic (6) Multiple sclerosis Status: Chronic (7) Sepsis Status: Resolved (8) STAPHYLOCOCCAL SEPTICEMIA, NEC Status: Resolved Surgical Problems: (1) S/P partial gastrectomy Status: Chronic Family History Diabetes mellitus FH: cholecystectomy FHx: heart disease Social History Smoking Status: Former Smoker Drug Use: none Marital Status: Housing status: lives with family Occupational Status: retired Immunizations History of Influenza Vaccine: Yes Influenza Vaccine Date: Sep 09, 2013 History of Tetanus Vaccine?: Yes Tetanus Immunization Date: Oct 12, 2002 History of Pneumococcal: UNSURE Pneumococcal Date: Sep 03, 2011 History of Hepatitis B Vaccine: No 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 Allergies Coded Allergies: Morphine (Verified Adverse Reaction, Intermediate, " MAKES ME MEAN" - CONFUSION, 07/23/17) Home Medications Scheduled Alendronate Sodium (Alendronate Sodium), 70 MG PO WK Amitriptyline Hcl (Elavil), 75 MG PO HS Amoxicillin & Pot Clavulanate (Augmentin 875-125 mg), 875 MG PO BID Cholecalciferol (Vitamin D3), 4,000 INTER.UNIT PO TID Ferrous Sulfate (Ferrous Sulfate), 325 MG PO BID Gabapentin (Gabapentin), 800 MG PO TID Magnesium Oxide (Mg Supplement (Magnesium Oxide), 241.3 MG PO DAILY Methylcellulose (Laxative) (Citrucel), 2,000 MG PO QAM Midodrine Hcl (Midodrine Hcl), 5 MG PO TID Mirtazapine (Mirtazapine), 45 MG PO HS Natalizumab (Tysabri), 1 DOSE IV MONTHLY Pantoprazole (Pantoprazole Sodium), 40 MG PO BID Topiramate (Topiramate), 25 MG PO BID Scheduled PRN Acetaminophen Tab (Tylenol), 325 MG PO DAILY PRN for Pain or Fever Sumatriptan Succinate (Imitrex), 100 MG PO UD PRN for Migraine Tramadol Hcl (Ultram), 50 MG PO BID PRN for Pain Review of Systems Constitutional: + weakness, No fever, No chills, No sweats Eyes: No worsening of vision ENT: No hearing loss, No unusual epistaxis, No nasal symptoms Respiratory: No cough, No sputum, No wheezing Cardiovascular: No chest pain, No orthopnea, No PND Abdomen: No pain, No nausea, No vomiting Musculoskeletal: No joint pain, No muscle pain Genitourinary - Female: + dysuria, + urinary incontinence, No urinary frequency , No urinary urgency, No urinary retention, No hematuria Neurologic: + weakness, + problem reported (Chronic global weakness - pronounced in lower extrems ), No memory loss, No paralysis Psychiatric: No depression symptoms Endocrine: No fatigue Hematologic / Lymphatic: No abnormal bleeding/bruising, No clotting problems Integumentary: No rash Physical Exam Vital Signs Date Time Temp Pulse Resp B/P (MAP) Pulse Ox O2 Delivery O2 Flow Rate FiO2 07/23/17 14:00 100 15 101/68 94 07/23/17 13:31 97 15 107/63 93 07/23/17 13:00 90 127/77 99 07/23/17 12:30 96 118/88 95 07/23/17 12:00 97 115/80 94 07/23/17 11:48 93 Room Air 07/23/17 11:30 103 120/71 92 07/23/17 11:27 97 07/23/17 11:12 36.6 100 19 120/74 94 Room Air General Appearance: WD/WN, no apparent distress, + pertinent finding (Lethargic , elederly female - awake and oriented) Head: normocephalic Eyes: normal inspection ENT: normal ENT inspection, hearing grossly normal Neck: supple, thyroid normal Respiratory/Chest: chest non-tender, lungs clear, normal breath sounds Cardiovascular: regular rate, rhythm, no edema, no gallop, no JVD, no murmur, normal peripheral pulses Abdomen/GI: normal bowel sounds, non tender, soft Back: normal inspection, no CVA tenderness, no muscle spasm Extremities/Musculoskelatal: normal inspection, no calf tenderness, normal capillary refill, no pedal edema, normal range of motion Neurologic/Psych: head chopper II-XII nml as tested, alert, + pertinent finding (Pt is globally weak with minmal LE movement - this is chronic but has worsened with acute illness) Skin: normal color, warm/dry, no rash Diagnostics Laboratory Results Results Past 24 Hours Test 07/23/17 11:20 07/23/17 12:35 Range/Units White Blood Count 15.07 4.8-10.8 K/uL Red Blood Count 4.27 4.2-5.4 M/uL Hemoglobin 13.3 12.0-16.0 g/dL Hematocrit 40.9 37-47 % Mean Corpuscular Volume 95.8 80-100 fL Mean Corpuscular Hemoglobin 31.1 25-34 pg Mean Corpuscular Hemoglobin Concent 32.5 32-36 g/dl Platelet Count 288 130-400 K/uL Mean Platelet Volume 10.5 7.4-10.4 fL Neutrophils (%) (Auto) 73.6 % Lymphocytes (%) (Auto) 18.9 % Monocytes (%) (Auto) 5.8 % Eosinophils (%) (Auto) 1.1 % Basophils (%) (Auto) 0.3 % Neutrophils # (Auto) 11.09 1.4-6.5 K/uL Lymphocytes # (Auto) 2.85 1.2-3.4 K/uL Monocytes # (Auto) 0.88 0.11-0.59 K/uL Eosinophils # (Auto) 0.17 0-0.5 K/uL Basophils # (Auto) 0.04 0-0.2 K/uL RDW Standard Deviation 51.6 36.4-46.3 fL RDW Coefficient of Variation 14.8 11.5-14.5 % Immature Granulocyte % (Auto) 0.3 % Immature Granulocyte # (Auto) 0.04 0.00-0.02 K/uL Nucleated RBC Absolute Count (auto) 0.06 0-0 K/uL Nucleated Red Blood Cells % 0.4 % Prothrombin Time 11.6 9.0-12.0 SECONDS Prothromb Time International Ratio 1.1 0.9-1.1 Activated Partial Thromboplast Time 33.1 21.0-31.0 SECONDS Partial Thromboplastin Ratio 1.3 Sodium Level 143 136-145 mmol/L Potassium Level 3.5 3.5-5.1 mmol/L Chloride Level 107 98-107 mmol/L Carbon Dioxide Level 29 21-32 mmol/L Anion Gap 7.0 3-11 mmol/L Blood Urea Nitrogen 13 7-18 mg/dl Creatinine 0.46 0.60-1.20 mg/dl Est Creatinine Clear Calc Drug Dose 79.2 ml/min Estimated GFR () 116.8 Estimated GFR (Non- 100.8 BUN/Creatinine Ratio 28.7 10-20 Random Glucose 80 70-99 mg/dl Calcium Level 8.0 8.5-10.1 mg/dl Magnesium Level 1.9 1.8-2.4 mg/dl Total Bilirubin 0.3 0.2-1 mg/dl Direct Bilirubin < 0.1 0-0.2 mg/dl Aspartate Amino Transf (AST/SGOT) 17 15-37 U/L Alanine Aminotransferase (ALT/SGPT) 22 12-78 U/L Alkaline Phosphatase 139 45-117 U/L Troponin I 0.034 0-0.045 ng/ml Total Protein 4.3 6.4-8.2 gm/dl Albumin 1.7 3.4-5.0 gm/dl Lipase 30 73-393 U/L Thyroid Stimulating Hormone (TSH) 1.370 0.300-4.500 uIu/ml Bedside Lactic Acid Venous 1.16 0.90-1.70 mmol/L EKG Sinus - borderline QT - ant and inf t-wave inversions which are new Impression Assessment and Plan 72 y/o F Hx MS, Migraines, GERD, PUD, orthostatic hypotension - wheelchair bound - presented to the ER one day prior with weakness and dysuria. Pt was D/ Cd with Augmentin. She did not comply with her meds, possibly due to confusion , per her family. She is lethargic but awake and alert at the time of evaluation. She complains mostly of weakness which acutely worsened this AM. She has frequent UTIs and weakness is not unusual for her during an infection which can exacerbate her MS symptoms. She denies confirmed fevers/rigors, SOB, CP, MCKEON, N/V. 1) UTI - pt is immunosuppressed. Cultures form one day prior reveal gram+ cocci - organism is not yet IDd. Pt placed on Unasyn/Vanc pending further results. 2) MS - If her symptoms do not improve with treatment of an infection, would consider treating for MS exacerbation. She takes monthly Natalizumab which she can resume when her infection clears. 3) Orthostatic hypotension - cont Midodrine TID 4) Migraines - cont Topiramate - PRN Tramadol. 5) Abnormal EKG - does not c/o SOB or CP - will check trop x 2 and repeat in 4 hrs - we will assign her to telemetry as it is not implausible that she had become hypotensive leading to demand ischemia and resultant EKG changes. Full code - Heparin prophylaxis - total time for this admit including review of labs, meds, records - discussion with pt and ER attending - 38 min Level of Care Telemetry VTE Prophylaxis VTE Risk Assessment Done? Y/N: Yes Risk Level: Moderate Given or contraindicated: Unfractionated heparin SQ
[2017-07-23 16:57] VITALS: O2SAT 97
[2017-07-23 18:34] VITALS: BP 120/78; PULSE 96; TEMP 37.2; Ht 152.4 cm; Wt 43.9 kg
[2017-07-23] MEDS ORDERED: VANCOMYCIN CONSULT ACTIVE PRN (19:30)
[2017-07-23] MEDS ORDERED: AMPICILLIN/SULBACTAM CONSULT ACTIVE PRN ×2 (19:30)
[2017-07-23] MEDS: HEPARIN SOD 5000 UNIT/0.5 ML CARP SQ SCH (19:36)
[2017-07-23] MEDS: TRAMADOL HCL 50 MG TAB PO PRN (19:37)
[2017-07-23] MEDS: AMPICILLIN/SULBACTAM SOD INJ 1,500 MG in SODIUM CHLORIDE 0.9% 100ML 100 ML IV SCH (19:37)
[2017-07-23] MEDS: D5NSS + 20MEQ KCL 1,000 ML IV SCH (19:37)
[2017-07-23] MEDS: GABAPENTIN 800 MG TAB PO SCH (19:39)
[2017-07-23] MEDS: PANTOprazole SOD 40 MG TAB PO SCH (19:39)
[2017-07-23] MEDS: TOPIRAMATE 25 MG TAB PO SCH (19:39)
[2017-07-23] MEDS: AMITRIPTYLINE HCL 25 MG TAB PO SCH (19:39)
[2017-07-23] MEDS: MIRTAZAPINE TAB 15 MG TAB PO SCH (19:39)
[2017-07-23 20:15] VITALS: BP 129/79; PULSE 106; TEMP 36.4; O2SAT 93
[2017-07-24 00:03] VITALS: BP 99/64; PULSE 93; TEMP 36.3; O2SAT 94
[2017-07-24] MEDS: AMPICILLIN/SULBACTAM SOD INJ 1,500 MG in SODIUM CHLORIDE 0.9% 100ML 100 ML IV SCH ×2 (02:13→08:45)
[2017-07-24 03:48] VITALS: BP 121/83; PULSE 90; TEMP 36.4; O2SAT 95
[2017-07-24 05:20] LABS: HEMATOCRIT 34.3 % (37-47); MEAN CELL VOLUME 95.3 fL (80-100); MEAN CORPUSCULAR HEMOGLOBIN 31.4 pg (25-34); MEAN CORPUSCULAR HGB CONC 32.9 g/dl (32-36); MEAN PLATELET VOLUME 9.8 fL (7.4-10.4); PLATELET COUNT 222 K/uL (130-400); WHITE BLOOD COUNT 6.68 K/uL (4.8-10.8)
[2017-07-24] MEDS: D5NSS + 20MEQ KCL 1,000 ML IV SCH ×2 (05:35→15:21)
[2017-07-24 05:47] LABS: BUN/CREATININE RATIO 35.8 (10-20); CALCIUM 7.1 mg/dl (8.5-10.1); CREATININE 0.31 mg/dl (0.60-1.20); MAGNESIUM 1.8 mg/dl (1.8-2.4); POTASSIUM 3.4 mmol/L (3.5-5.1)
[2017-07-24] MEDS ORDERED: VANCOMYCIN INJ 750 MG in SODIUM CHLORIDE 0.9% 250ML 250 ML IV SCH (06:00)
[2017-07-24] MEDS: MIDODRINE 2.5 MG TAB PO SCH ×3 (06:06→17:49)
[2017-07-24 07:14] VITALS: BP 123/80; PULSE 90; TEMP 36.6; O2SAT 95
[2017-07-24] MEDS: TOPIRAMATE 25 MG TAB PO SCH ×2 (08:46→20:53)
[2017-07-24] MEDS: GABAPENTIN 800 MG TAB PO SCH ×3 (08:46→20:52)
[2017-07-24] MEDS: MAGNESIUM OXIDE 400 MG TAB PO SCH (08:46)
[2017-07-24] MEDS: PANTOprazole SOD 40 MG TAB PO SCH ×2 (08:46→20:52)
[2017-07-24] MEDS: HEPARIN SOD 5000 UNIT/0.5 ML CARP SQ SCH ×2 (08:50→20:48)
[2017-07-24 10:42] VITALS: BP 115/76; PULSE 95; TEMP 36.5; O2SAT 96
--- NOTE | 2017-07-24 12:01 | Clinical Documentation Query ---
ANAHI Estrella : CLINICAL DOCUMENTATION QUERY Patient is a 72 year old female admitted for evaluation and treatment of weakness, UTI, confusion and lethargy. She is being treated with Unasyn and Vancomycin pending culture results. As appropriate, consider documentation as suggested below so as to provide a clinical diagnosis for the documented symptom of AMS. Thank you. In your clinical opinion is this patient being managed for: ( x ) (Possible/Suspected/Likely) Metabolic encephalopathy secondary to UTI ( ) Not Agree ( ) Other explanation of clinical findings (Please Explain) ( ) Unable to determine (Please Define) ( ) Need to Discuss The medical record reflects the following clinical findings, treatment, and risk factors. Clinical Indicators: As above Treatment: She is being treated with Unasyn and Vancomycin pending culture results Risk Factors: Age, gender, UTI Please clarify and document your clinical opinion in the progress notes and discharge summary. Terms such as "probable", "suspected", "likely", "questionable", "possible", or "still to be ruled out" are acceptable. IF IN AGREEMENT, YOU MUST DOCUMENT ABOVE DIAGNOSTIC STATEMENT IN DAILY PROGRESS NOTES AND DISCHARGE SUMMARY. This document is not part of the patient's record. Thank You, Dom Faustin, JOSE [phone]
[2017-07-24] MEDS: AMPICILLIN/SULBACTAM SOD INJ 3,000 MG in SODIUM CHLORIDE 0.9% 100ML 100 ML IV SCH ×2 (13:46→22:31)
[2017-07-24 15:52] VITALS: BP 137/79; PULSE 96; TEMP 36.7; O2SAT 94
--- NOTE | 2017-07-24 15:54 | DIAGNOSTIC IMAGING REPORT ---
LEFT ANKLE 2 VIEWS CLINICAL HISTORY: Medial Ankle Pain COMPARISON: None. DISCUSSION: The bones are osteopenic. No acute fractures are visualized. There are no erosive or destructive changes. There is mild diffuse soft tissue swelling. IMPRESSION: Mild soft tissue swelling. Osteopenia. No acute fractures. Electronically signed by: Rommel Mary M.D. 07/24/2017 3:53 PM Dictated Date/Time: 07/24/2017 3:46 PM
--- NOTE | 2017-07-24 15:56 | Hospitalist Progress Note ---
Hospitalist Progress Note Date of Service Jul 24, 2017. (Opal Marshall, PASavannahC) Subjective Pt evaluation today including: conversation w/ patient, physical exam, chart review, lab review, review of studies, review of inpatient medication list Patient seen and evaluated. Was in ED on 07/22 for sacral wound and prescribed Augmentin but AMS/weakness worsened and was admitted. Patient follows commands and is alert and oriented. Feels like she is improving but still with generalized weakness. Eating meals but does report a reduced appetite. UCx with MDR enterococcus faecalis. Is not having dysuria or other urinary symptoms. Complaints of L ankle pain with point tenderness to medial malleolus but denies trauma - is wheelchair bound No erythema or findings suggesting infectious or gout. Is having bilateral feet edema Constitutional: + weakness (generalized), No fever, No chills Respiratory: No shortness of breath Cardiovascular: No chest pain Abdomen: No pain, No nausea, No vomiting Musculoskeletal: + joint pain (L ankle pain) Female : No dysuria Heme: No abnormal bleeding/bruising (Opal Marshall, MELAC) Medications Current Inpatient Medications Medications (Trade) Dose Ordered Sig/Melvin Route Start Time Stop Time Status Last Admin Dose Admin Potassium Chloride/Dextrose/ Sod Cl 1,000 ml @ 100 mls/hr Q10H IV 07/23/17 19:00 08/22/17 18:59 07/24/17 05:35 100 MLS/HR Acetaminophen (Tylenol Tab) 650 mg Q4H PRN PO 07/23/17 15:15 08/22/17 15:14 Al Hydrox/Mg Hydrox/Simethicone (Maalox Max Susp) 15 ml Q4H PRN PO 07/23/17 15:15 08/22/17 15:14 Magnesium Hydroxide (Milk Of Magnesia Susp) 30 ml Q6H PRN PO 07/23/17 15:15 08/22/17 15:14 Polyethylene (Miralax Powder Packet) 17 gm DAILY PRN PO 07/23/17 15:15 08/22/17 15:14 Ondansetron HCl (Zofran Inj) 4 mg Q6H PRN IV 07/23/17 15:15 08/22/17 15:14 Heparin Sodium (Porcine) (Heparin Sq 5000 Unit/0.5ml) 5,000 unit Q12H SQ 07/23/17 20:00 08/22/17 19:59 07/24/17 08:50 5,000 UNIT Amitriptyline HCl (Elavil Tab) 75 mg HS PO 07/23/17 21:00 08/22/17 20:59 07/23/17 19:39 75 MG Gabapentin (Neurontin Tab) 800 mg TID PO 07/23/17 21:00 08/22/17 20:59 07/24/17 13:47 800 MG Magnesium Oxide (Mag-Ox Tab) 400 mg DAILY PO 07/24/17 09:00 08/23/17 08:59 07/24/17 08:46 400 MG Pantoprazole Sodium (Protonix Tab) 40 mg BID PO 07/23/17 21:00 08/22/17 20:59 07/24/17 08:46 40 MG Topiramate (Topamax Tab) 25 mg BID PO 07/23/17 21:00 08/22/17 20:59 07/24/17 08:46 25 MG Tramadol HCl (Ultram Tab) 50 mg BID PRN PO 07/23/17 15:15 08/22/17 15:14 07/23/17 19:37 50 MG Midodrine (Proamatine Tab) 5 mg TID@0700,1200,1700 PO 07/24/17 07:00 08/23/17 06:59 07/24/17 11:57 5 MG Mirtazapine (Remeron Tab) 45 mg HS PO 07/23/17 21:00 08/22/17 20:59 07/23/17 19:39 45 MG Ampicillin Sodium/ Sulbactam Sodium 3000 mg/Sodium Chloride 108 ml @ 200 mls/hr Q8H IV 07/24/17 14:00 08/02/17 19:59 07/24/17 13:46 200 MLS/HR Ampicillin Sodium/ Sulbactam Sodium (Consult) 1 ea UD PRN N/A 07/23/17 19:30 08/22/17 19:29 Heparin Sodium (Porcine) (Heparin 100 Unit/ml 5ml Flush) 5 ml PRN PRN IV 07/24/17 05:15 08/23/17 05:14 (Opal Marshall, SOFÍA) Objective Vital Signs Date Time Temp Pulse Resp B/P (MAP) Pulse Ox O2 Delivery O2 Flow Rate FiO2 07/24/17 12:00 Room Air 07/24/17 10:42 36.5 95 16 115/76 (89) 96 Room Air 07/24/17 08:00 Room Air 07/24/17 07:14 36.6 90 16 123/80 (94) 95 Room Air 07/24/17 04:00 Room Air 07/24/17 03:48 36.4 90 20 121/83 (96) 95 Room Air 07/24/17 00:03 36.3 93 19 99/64 (76) 94 Room Air 07/24/17 00:02 Room Air 07/23/17 20:15 36.4 106 16 129/79 (96) 93 Room Air 07/23/17 20:00 Room Air 07/23/17 18:34 37.2 96 20 120/78 Room Air 07/23/17 16:57 37.2 97 20 114/77 97 Room Air 07/23/17 15:57 101 16 119/71 94 Room Air (Opal Marshall, PA-C) Physical Exam General Appearance: no apparent distress, + thin Eyes: sclerae normal ENT: hearing grossly normal Neck: supple, no JVD, trachea midline Respiratory/Chest: lungs clear, normal breath sounds, no respiratory distress, no accessory muscle use Cardiovascular: regular rate, rhythm, no gallop, no murmur Abdomen: normal bowel sounds, non tender, soft Extremities: + pedal edema (bilateral pitting edema 2+) Neurologic/Psychiatric: alert Skin: normal color, warm/dry (Opal Marshall, PA-C) Laboratory Results Last 24 Hours Test 07/23/17 18:40 07/24/17 00:28 07/24/17 05:00 Troponin I 0.051 ng/ml 0.035 ng/ml White Blood Count 6.68 K/uL Red Blood Count 3.60 M/uL Hemoglobin 11.3 g/dL Hematocrit 34.3 % Mean Corpuscular Volume 95.3 fL Mean Corpuscular Hemoglobin 31.4 pg Mean Corpuscular Hemoglobin Concent 32.9 g/dl RDW Standard Deviation 51.7 fL RDW Coefficient of Variation 14.8 % Platelet Count 222 K/uL Mean Platelet Volume 9.8 fL Sodium Level 147 mmol/L Potassium Level 3.4 mmol/L Chloride Level 115 mmol/L Carbon Dioxide Level 29 mmol/L Anion Gap 3.0 mmol/L Blood Urea Nitrogen 11 mg/dl Creatinine 0.31 mg/dl Est Creatinine Clear Calc Drug Dose 117.6 ml/min Estimated GFR () 133.0 Estimated GFR (Non- 114.8 BUN/Creatinine Ratio 35.8 Random Glucose 108 mg/dl Calcium Level 7.1 mg/dl Magnesium Level 1.8 mg/dl (Opal Marshall PA-C) Assessment and Plan Ms. Jasso is a 72 y/o female with PMHx of Migraines, GERD, PUD, Orthostatic Hypotension, MS and Wheelchair Bound who presents for generalized weakness and dysuria. 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 - Continue Unasyn 3 g IV Q8H at this time - NGTD on prelim and can convert to orals - IVF D5NSS + 20 mEq K at 100 mL/hr throughout today Multiple Sclerosis: - Await clinical course with UTI treatment - may need further MS flair treatment if no improvement Amitriptyline 75 mg daily, Remeron 45 mg daily, and Gabapentin 800 mg TID Orthostatic Hypotension: - Midodrine 5 mg TID Migraines: - Topamax 25 mg BID DVT Prophylaxis: Heparin 5000 units SC Q12H Code Status: FULL RESUSCITATION Disposition: - PT/OT evaluations - referral to [facility] Continued [facility] stay due to: multiple IV medications needed Discharge planning: longterm facility (Opal Marshall PA-C) Reviewed: Pt Seen/Exam by Me (Meagan Forbes DO) History Pt is still feeling weak, but feels that her AMS has resolved. Tolerating PO without issue. Agree with HPI/ROS as noted. (Meagan Forbes, ) General Appearance: no apparent distress, thin Respiratory: normal breath sounds, no respiratory distress Cardiovascular: normal peripheral pulses, regular rate, rhythm Gastrointestinal: non tender, soft Extremities: non-tender, no pedal edema Neurologic/Psychiatric: alert, oriented x 3 Skin Characteristics: normal color, warm/dry (Meagan Forbes DO) Assessment/Plan Agree with plan as outlined above Sacral debub dx in ED and started on Augmentin 07/22 Now with UTI, gram + cocci and sensitivities are pending Will change abx and ideally use only one to cover both if able MS: stable Metabolic encephalopathy likely related to UTI and possible early sepsis Blood cx neg on prelim (Meagan Forbes, DO)
[2017-07-24 16:46] VITALS: BP 137/79; PULSE 96; TEMP 36.7; O2SAT 94
[2017-07-24] MEDS: AMITRIPTYLINE HCL 25 MG TAB PO SCH (20:52)
[2017-07-24] MEDS: MIRTAZAPINE TAB 15 MG TAB PO SCH (20:52)
[2017-07-25] VITALS: BP 119/79; PULSE 108; TEMP 36.9; O2SAT 95
[2017-07-25] MEDS: D5NSS + 20MEQ KCL 1,000 ML IV SCH ×2 (01:13→11:08)
[2017-07-25 05:38] LABS: HEMATOCRIT 34.9 % (37-47); MEAN CELL VOLUME 94.3 fL (80-100); MEAN CORPUSCULAR HEMOGLOBIN 31.1 pg (25-34); MEAN PLATELET VOLUME 10.1 fL (7.4-10.4); PLATELET COUNT 233 K/uL (130-400); WHITE BLOOD COUNT 5.68 K/uL (4.8-10.8)
[2017-07-25] MEDS: AMPICILLIN/SULBACTAM SOD INJ 3,000 MG in SODIUM CHLORIDE 0.9% 100ML 100 ML IV SCH (06:05)
[2017-07-25] MEDS: MIDODRINE 2.5 MG TAB PO SCH ×3 (06:05→16:30)
[2017-07-25 06:27] LABS: BUN/CREATININE RATIO 20.5 (10-20); CALCIUM 6.9 mg/dl (8.5-10.1); CREATININE 0.23 mg/dl (0.60-1.20); POTASSIUM 3.3 mmol/L (3.5-5.1)
[2017-07-25 07:43] VITALS: BP 129/85; PULSE 87; TEMP 36.8; O2SAT 91
[2017-07-25] MEDS: TRAMADOL HCL 50 MG TAB PO PRN (08:12)
[2017-07-25] MEDS: HEPARIN SOD 5000 UNIT/0.5 ML CARP SQ SCH ×2 (08:13→21:09)
[2017-07-25] MEDS: PANTOprazole SOD 40 MG TAB PO SCH ×2 (08:19→21:06)
[2017-07-25] MEDS: TOPIRAMATE 25 MG TAB PO SCH ×2 (08:19→21:05)
[2017-07-25] MEDS: GABAPENTIN 800 MG TAB PO SCH ×3 (08:19→21:05)
[2017-07-25] MEDS: MAGNESIUM OXIDE 400 MG TAB PO SCH (08:19)
[2017-07-25] MEDS ORDERED: POTASSIUM CHLORIDE 10 MEQ TABCR PO STA (09:19)
[2017-07-25 12:00] VITALS: O2SAT 94
--- NOTE | 2017-07-25 13:20 | Hospitalist Progress Note ---
Hospitalist Progress Note Date of Service Jul 25, 2017. (Opal Marshall PA-C) Subjective Pt evaluation today including: conversation w/ patient, physical exam, chart review, lab review, review of studies, review of inpatient medication list Patient seen and evaluated. Reporting some improvement with generalized weakness. Tolerating diet without issue. UCx with enterococcus with some resistance. Referral to [facility] placed. Verbalizes no other complaints or needs at this time. Constitutional: + weakness (generalized - slowly improving), No fever, No chills Respiratory: No cough, No shortness of breath Cardiovascular: No chest pain Abdomen: No pain, No nausea, No vomiting, No diarrhea, No constipation Musculoskeletal: + swelling (bilateral feet), No calf pain Female : No dysuria Heme: No abnormal bleeding/bruising (Opal Marshall PA-C) Medications Current Inpatient Medications Medications (Trade) Dose Ordered Sig/Melvin Route Start Time Stop Time Status Last Admin Dose Admin Potassium Chloride/Dextrose/ Sod Cl 1,000 ml @ 100 mls/hr Q10H IV 07/23/17 19:00 08/22/17 18:59 07/25/17 11:08 100 MLS/HR Acetaminophen (Tylenol Tab) 650 mg Q4H PRN PO 07/23/17 15:15 08/22/17 15:14 Al Hydrox/Mg Hydrox/Simethicone (Maalox Max Susp) 15 ml Q4H PRN PO 07/23/17 15:15 08/22/17 15:14 Magnesium Hydroxide (Milk Of Magnesia Susp) 30 ml Q6H PRN PO 07/23/17 15:15 08/22/17 15:14 Polyethylene (Miralax Powder Packet) 17 gm DAILY PRN PO 07/23/17 15:15 08/22/17 15:14 Ondansetron HCl (Zofran Inj) 4 mg Q6H PRN IV 07/23/17 15:15 08/22/17 15:14 Heparin Sodium (Porcine) (Heparin Sq 5000 Unit/0.5ml) 5,000 unit Q12H SQ 07/23/17 20:00 08/22/17 19:59 07/25/17 08:13 5,000 UNIT Amitriptyline HCl (Elavil Tab) 75 mg HS PO 07/23/17 21:00 08/22/17 20:59 07/24/17 20:52 75 MG Gabapentin (Neurontin Tab) 800 mg TID PO 07/23/17 21:00 08/22/17 20:59 07/25/17 08:19 800 MG Magnesium Oxide (Mag-Ox Tab) 400 mg DAILY PO 07/24/17 09:00 08/23/17 08:59 07/25/17 08:19 400 MG Pantoprazole Sodium (Protonix Tab) 40 mg BID PO 07/23/17 21:00 08/22/17 20:59 07/25/17 08:19 40 MG Topiramate (Topamax Tab) 25 mg BID PO 07/23/17 21:00 08/22/17 20:59 07/25/17 08:19 25 MG Tramadol HCl (Ultram Tab) 50 mg BID PRN PO 07/23/17 15:15 08/22/17 15:14 07/25/17 08:12 50 MG Midodrine (Proamatine Tab) 5 mg TID@0700,1200,1700 PO 07/24/17 07:00 08/23/17 06:59 07/25/17 06:05 5 MG Mirtazapine (Remeron Tab) 45 mg HS PO 07/23/17 21:00 08/22/17 20:59 07/24/17 20:52 45 MG Ampicillin Sodium/ Sulbactam Sodium (Consult) 1 ea UD PRN N/A 07/23/17 19:30 08/22/17 19:29 Heparin Sodium (Porcine) (Heparin 100 Unit/ml 5ml Flush) 5 ml PRN PRN IV 07/24/17 05:15 08/23/17 05:14 Amoxicillin/ Clavulanate Potassium (Augmentin Tab) 875 mg BIDM PO 07/25/17 17:00 07/30/17 16:59 (Opal Marshall, SOFÍA) Objective Vital Signs Date Time Temp Pulse Resp B/P (MAP) Pulse Ox O2 Delivery O2 Flow Rate FiO2 07/25/17 08:10 Room Air 07/25/17 07:43 36.8 87 18 129/85 (100) 91 Room Air 07/25/17 01:00 Room Air 07/25/17 00:00 36.9 108 18 119/79 (92) 95 Room Air 07/24/17 17:00 Room Air 07/24/17 16:46 36.7 96 16 94 07/24/17 16:08 Room Air 07/24/17 15:52 36.7 96 16 137/79 (98) 94 Room Air (Opal Marshall PA-C) Physical Exam General Appearance: no apparent distress Eyes: sclerae normal ENT: hearing grossly normal Neck: supple, no JVD, trachea midline Respiratory/Chest: lungs clear, normal breath sounds, no respiratory distress, no accessory muscle use Cardiovascular: regular rate, rhythm, no gallop, no murmur Abdomen: normal bowel sounds, non tender, soft Extremities: no calf tenderness, + pedal edema Neurologic/Psychiatric: alert Skin: normal color, warm/dry (Opal Marshall PA-C) Laboratory Results Last 24 Hours Test 07/25/17 05:12 White Blood Count 5.68 K/uL Red Blood Count 3.70 M/uL Hemoglobin 11.5 g/dL Hematocrit 34.9 % Mean Corpuscular Volume 94.3 fL Mean Corpuscular Hemoglobin 31.1 pg Mean Corpuscular Hemoglobin Concent 33.0 g/dl RDW Standard Deviation 49.9 fL RDW Coefficient of Variation 14.5 % Platelet Count 233 K/uL Mean Platelet Volume 10.1 fL Sodium Level 146 mmol/L Potassium Level 3.3 mmol/L Chloride Level 116 mmol/L Carbon Dioxide Level 25 mmol/L Anion Gap 5.0 mmol/L Blood Urea Nitrogen 5 mg/dl Creatinine 0.23 mg/dl Est Creatinine Clear Calc Drug Dose 157.7 ml/min Estimated GFR () 146.7 Estimated GFR (Non- 126.6 BUN/Creatinine Ratio 20.5 Random Glucose 88 mg/dl Calcium Level 6.9 mg/dl (Opal Marshall PA-C) Assessment and Plan Ms. Jasos is a 72 y/o female with PMHx of Migraines, GERD, PUD, Orthostatic Hypotension, MS and Wheelchair Bound who presents for generalized weakness and dysuria. 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 stay due to: ambulation difficulties [facility]charge planning[facility] facility (Opal Marshall PA-C) Reviewed: Pt Seen/Exam by Me (Meagan Forbes, ) History Pt again notes improvement. Tolerating PO. No chest pain or SOB. Agree with HPI/ROS as noted. (Meagan Forbes, ) General Appearance: no apparent distress, thin Respiratory: normal breath sounds, no respiratory distress Cardiovascular: normal peripheral pulses, regular rate, rhythm Gastrointestinal: non tender, soft Extremities: non-tender, no pedal edema Neurologic/Psychiatric: alert, oriented x 3 Skin Characteristics: normal color, warm/dry (Meagan Forbes DO) Assessment/Plan Agree with plan as outlined above Sacral debub dx in ED and started on Augmentin 07/22 Now with UTI, gram + cocci, sensitive to augmentin and will resume 07/25 MS: stable Metabolic encephalopathy likely related to UTI and possible early sepsis Blood cx neg on prelim feels he cannot care for pt at home, referrals pending for [facility] (Meagan Forbes, )
[2017-07-25] MEDS: AMOXICILLIN/CLAVULANATE TAB 875 MG TAB PO SCH (16:30)
[2017-07-25 16:59] VITALS: BP 131/84; PULSE 98; TEMP 36.5; O2SAT 99
[2017-07-25] MEDS: MIRTAZAPINE TAB 15 MG TAB PO SCH (21:04)
[2017-07-25] MEDS: AMITRIPTYLINE HCL 25 MG TAB PO SCH (21:06)
[2017-07-25] MEDS ORDERED: DEXTROSE 50% 50 ML SYR IV PRN (23:15)
[2017-07-25] MEDS ORDERED: ATORVASTATIN 40 MG TAB PO STA (23:41)
[2017-07-25] MEDS ORDERED: ASPIRIN 81 MG CHEW PO STA (23:41)
[2017-07-25] MEDS ORDERED: PHARMACIST DISCHARGE MED REC CONSULT PRN (23:45)
--- NOTE | 2017-07-26 00:07 | Progress Note ---
Progress Note Date of Service Jul 25, 2017. Progress Note Code purple for slurred speech and left facial droop Patient was evaluated in room 251-1. Seen by JOSE Rhodes at 23:02 patient having difficulty with speech, left facial droop. Last known well 21:15. Hemodynamically stable and no complaints of chest pain or shortness of breath. BP151/95, HR 103, Sats 97% RA. Subjective: Patient reports some ongoing difficulty with her speech but already resolving. She has a chronic mild droop of her left side of her mouth. She reports having speech problems. She has never had speech problems previously with her MS. Objective: No upper motor power or sensation deficit, no pronator drift Bilateral lower extremity weakness but this appears to be chronic and she reports no worse than usual, hip flexion 2/5, knee/ext/flex 2/5, ankle dorsiflexion/plantarflexion 4+/5, sensation appears intact L3-S1 b/l PERRL. EOMI. Mild droop of her left side of her mouth which the patient reports to be chronic (unsure if it is worse than usual), she is able to smile equally, open eyes and close eyes without difficulty. No facial numbness. IX, XI, XII intact Speech: able to say mamama, [place], [place] without difficulty. Oriented to time (year and month), place and person. She has very dry oral mucus membranes without signs of thrush CTAB HS 1+2 no murmurs Abdo SNT, normal BS Assessment & Plan - unable to exclude CVA but likelihood is low. Certainly with resolving minor symptoms and unclear etiology to begin with she is not a tPA candidate. - differential includes sundowning/delirium, hypoglycemia, dry mucus membranes, infection, electrolyte imbalance - BSG 74 - 25ml Dextrose 50% given to make sure this is not present - CBC, CMP, troponin - oral mouth care QS - CT head ordered to rule out hemorrhage as she is on heparin 5000 units SQ. - this did not show a hemorrhage or new infarct - Aspirin 324mg chew stat ordered (she does have a history of PUD s/p partial gastrectomy but reports this was from aspirin overuse and she takes 81mg aspirin daily at home. - Atorvastatin 40 mg PO stat - transfer to telemetry - NIH scores - consult neurology in morning
[2017-07-26 00:24] LABS: BASO % 0.3 %; BASO ABS # 0.02 K/uL (0-0.2); EOS % 2.9 %; HEMATOCRIT 35.7 % (37-47); IG% 0.2 %; LYMPH % 29.2 %; MEAN CELL VOLUME 93.2 fL (80-100); MEAN CORPUSCULAR HEMOGLOBIN 31.6 pg (25-34); MEAN PLATELET VOLUME 10.3 fL (7.4-10.4); NEUT % 61.4 %; PLATELET COUNT 253 K/uL (130-400); RED BLOOD COUNT 3.83 M/uL (4.2-5.4)
[2017-07-26 00:36] LABS: COMPLETE YES; MEAN CORPUSCULAR HGB CONC 33.9 g/dl (32-36)
[2017-07-26 01:00] LABS: ALB/GLOB RATIO 0.6 (0.9-2); BUN/CREATININE RATIO 18.3 (10-20); CALCIUM 7.1 mg/dl (8.5-10.1); CREATININE 0.25 mg/dl (0.60-1.20)
[2017-07-26 01:09] VITALS: BP 122/77; PULSE 94; TEMP 36.6; O2SAT 97
[2017-07-26 02:16] LABS: PARTIAL THROMBOPLASTIN RATIO 1.4; PROTHROMBIN TIME (PATIENT) 10.3 SECONDS (9.0-12.0)
[2017-07-26] MEDS ORDERED: POTASSIUM CHLORIDE INJ 40 MEQ in SODIUM CHLORIDE 0.9% 1000ML 1,000 ML IV SCH (03:00)
[2017-07-26 03:34] VITALS: BP 117/72; PULSE 92; TEMP 36.5; O2SAT 91
[2017-07-26] MEDS ORDERED: VANCOMYCIN TROUGH SCH (05:30)
[2017-07-26 05:49] LABS: BASO % 0.5 %; BASO ABS # 0.03 K/uL (0-0.2); COMPLETE YES; EOS % 2.7 %; HEMATOCRIT 34.7 % (37-47); IG% 0.4 %; LYMPH % 40.6 %; LYMPH ABS # 2.26 K/uL (1.2-3.4); MEAN CELL VOLUME 93.3 fL (80-100); MEAN CORPUSCULAR HEMOGLOBIN 31.2 pg (25-34); MEAN CORPUSCULAR HGB CONC 33.4 g/dl (32-36); MONO % 8.1 %; NEUT % 47.7 %; PLATELET COUNT 239 K/uL (130-400); RED BLOOD COUNT 3.72 M/uL (4.2-5.4); WHITE BLOOD COUNT 5.56 K/uL (4.8-10.8)
[2017-07-26 06:17] LABS: ALT/SGPT 13 U/L (12-78); AST/SGOT 13 U/L (15-37); BLOOD UREA NITROGEN 4 mg/dl (7-18); CARBON DIOXIDE 24 mmol/L (21-32); CHLORIDE 115 mmol/L (98-107); CREATININE < 0.15 mg/dl (0.60-1.20); GLUCOSE 69 mg/dl (70-99); POTASSIUM 3.6 mmol/L (3.5-5.1); SODIUM 145 mmol/L (136-145)
[2017-07-26 06:22] LABS: ESTIMATED AVERAGE GLUCOSE 100 mg/dl; HA1C FLAG Normal (Normal)
[2017-07-26 06:23] LABS: ALB/GLOB RATIO 0.6 (0.9-2); ALKALINE PHOSPHATASE 117 U/L (45-117); CHOLESTEROL 106 mg/dl (0-200); CHOLESTEROL/HDL RATIO 1.3; HDL CHOLESTEROL 81 mg/dl; LDL CHOLESTEROL CALCULATED 12 mg/dl; TRIGLYCERIDES 67 mg/dl (0-150); VERY LOW DENSITY LIPOPROT CALC 13 mg/dl
--- NOTE | 2017-07-26 06:59 | DIAGNOSTIC IMAGING REPORT ---
HEAD WITHOUT CONTRAST (CT) CLINICAL HISTORY: 72 years-old Female presenting with slurred speech and left sided facial droop. TECHNIQUE: Multidetector CT imaging of the head was performed without the use of intravenous contrast. IV contrast: None. A dose lowering technique was used consistent with the principles of ALARA (as low as reasonably achievable). COMPARISON: 05/07/2017. CT DOSE (mGy.cm): The estimated cumulative dose is 537.48 mGy.cm. FINDINGS: [employer] topogram: Unremarkable. Ventricles and sulci normal in size. Periventricular and subcortical white matter hypoattenuation, nonspecific but likely indicative of chronic small vessel ischemic change. No mass effect or midline shift. No hemorrhage or acute territorial infarct. No extra-axial fluid collection. Paranasal sinuses and mastoid air cells clear. Calvarium intact. IMPRESSION: 1. No acute intracranial pathology. Electronically signed by: Ho Shafer M.D. 07/26/2017 6:58 AM Dictated Date/Time: 07/26/2017 6:56 AM
[2017-07-26 07:49] VITALS: BP 145/83; PULSE 94; TEMP 36.7; O2SAT 92
--- NOTE | 2017-07-26 09:44 | Neurology Consultation ---
Neurology Consultation Date of Consultation: Jul 26, 2017. Attending Physician: Meagan Forbes DO Primary Care Physician: George Montoya M.D. Reason for Consultation: Patient is a 72-year-old, who was asked to see the request of Dr. Joseph, for neurologic consultation regarding possible new TIA or stroke in the setting of MS and other issues. History of Present Illness Source: patient, caregiver, clinic records, hospital records This patient is well known to me why been seeing for over 15 years with multiple sclerosis. At first she was on Copaxone but failed this. Since 2009 she has been on Tysabri and has been fairly stable although over the last several years she's had very mild, but relentless, gradual progression of weakness and disability. She is bed/wheelchair bound and cannot walk anymore. I last saw her July 19 in the clinic and her MS and mood issues were stable. She's been having long-standing migrainous headaches and we elected to initiate topiramate 25 mg twice a day for headache prophylaxis. This was done in effort to keep her out of the emergency room for her severe headaches which can occur multiple times per month. Patient came to the emergency room on July 22 with some lethargy and confusion and was noted to have greater than 100,000 enterococci faecalis in her urine. She was initiated on Augmentin but did not end up taking it. She arrived at the emergency room on July 23 with generalized weakness confusion and lethargy. At 1112 hours, temperature was 36.6, pulse 100, respiratory rate 19, blood pressure 120/74, and O2 saturation 94 percent. She was admitted and initiated on antibiotics. She is also known to have a lacerated wound in her coccyx area and has been seeing wound care. On July 25, she was doing well at 2115 hours. At 12/16/00 she was noted by staff to have slurred speech and left facial droop. At the time physicians arrived she was examined and a CT scan of the head showed no acute changes. She has not had any additional events since. CBC shows anemia as before. We cannot was elevated on admission but is not repeated today. Exam is largely unremarkable and a cholesterol was 106. This morning the patient feels "back to her usual". She denies pain in her limbs or spine. She has no chest pain or abdominal pain. She does have a typical right frontal headache of a stabbing pain. She is tired but this is usual for her. Past Medical/Surgical History Medical Problems: (1) Altered mental status Status: Acute (2) Altered mental status Status: Acute (3) Cellulitis Status: Acute (4) Cystitis Status: Acute (5) Dehydration Status: Acute (6) Exacerbation of multiple sclerosis Status: Acute (7) Fall at home Status: Acute (8) Femur fracture Status: Acute (9) Fever Status: Acute (10) Fracture of right hip Status: Acute (11) Headache Status: Acute (12) Hypokalemia Status: Acute (13) Intractable pain Status: Acute (14) Intractable vomiting Status: Acute (15) Migraine Status: Acute (16) Migraine Status: Acute (17) Migraine Status: Acute (18) Migraine Status: Acute (19) Migraine Status: Acute (20) Migraine Status: Acute (21) Migraine Status: Acute (22) Migraine Status: Acute (23) Migraine Status: Acute (24) Migraine Status: Acute (25) Migraine headache Status: Acute (26) Pelvis fracture, right Status: Acute (27) Pneumonia Status: Acute (28) Pressure ulcer of right buttock Status: Acute (29) Sacral ulcer Status: Acute (30) Status post closed fracture of right hip Status: Acute (31) Tachycardia Status: Acute (32) Tachycardia Status: Acute (33) UTI (urinary tract infection) Status: Acute (34) Weakness Status: Acute (35) Weakness Status: Acute (36) Weakness Status: Acute Multiple sclerosis, initially relapsing remitting with secondary progression. She is fairly stable on Tysabri. Severe, frequent, intermittent migraine headaches. These are of the long- standing nature. History of chronic low back pain post fusion and rods for scoliosis in 1999 Hypertension Peptic ulcer disease with history of GI bleed in the past Dyslipidemia with normal parameters currently Coccyx decubitus ulcer Depression, major, currently under fairly good control. UTI currently, Enterococcus faecalis Post cholecystectomy, appendectomy, and total abdominal hysterectomy History of hip surgery and femur repair in the past Family History in her 80s of uncertain cause. Father age 55 from cardiac issue. Social History Patient quit cigarette smoking sometime in her early 60s. She drank alcohol in the past on occasion but has not had any alcohol for years. 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 working somewhere 15 years ago or more when she was diagnosed with MS Smoking Status: Former smoker Smokeless Tobacco Use: No Alcohol Use: none Drug Use: none Marital Status: Housing Status: lives with family Occupation Status: retired Allergies Coded Allergies: Morphine (Verified Adverse Reaction, Intermediate, " MAKES ME MEAN" - CONFUSION, 07/23/17) Current Inpatient Medications Current Inpatient Medications Medications (Trade) Dose Ordered Sig/Melvin Route Start Time Stop Time Status Last Admin Dose Admin Acetaminophen (Tylenol Tab) 650 mg Q4H PRN PO 07/23/17 15:15 08/22/17 15:14 Al Hydrox/Mg Hydrox/Simethicone (Maalox Max Susp) 15 ml Q4H PRN PO 07/23/17 15:15 08/22/17 15:14 Magnesium Hydroxide (Milk Of Magnesia Susp) 30 ml Q6H PRN PO 07/23/17 15:15 08/22/17 15:14 Polyethylene (Miralax Powder Packet) 17 gm DAILY PRN PO 07/23/17 15:15 08/22/17 15:14 Ondansetron HCl (Zofran Inj) 4 mg Q6H PRN IV 07/23/17 15:15 08/22/17 15:14 Heparin Sodium (Porcine) (Heparin Sq 5000 Unit/0.5ml) 5,000 unit Q12H SQ 07/23/17 20:00 08/22/17 19:59 07/25/17 21:09 5,000 UNIT Amitriptyline HCl (Elavil Tab) 75 mg HS PO 07/23/17 21:00 08/22/17 20:59 07/25/17 21:06 75 MG Gabapentin (Neurontin Tab) 800 mg TID PO 07/23/17 21:00 08/22/17 20:59 07/25/17 21:05 800 MG Magnesium Oxide (Mag-Ox Tab) 400 mg DAILY PO 07/24/17 09:00 08/23/17 08:59 07/25/17 08:19 400 MG Pantoprazole Sodium (Protonix Tab) 40 mg BID PO 07/23/17 21:00 08/22/17 20:59 07/25/17 21:06 40 MG Topiramate (Topamax Tab) 25 mg BID PO 9/10/17 21:00 08/22/17 20:59 07/25/17 21:05 25 MG Tramadol HCl (Ultram Tab) 50 mg BID PRN PO 07/23/17 15:15 08/22/17 15:14 07/25/17 08:12 50 MG Midodrine (Proamatine Tab) 5 mg TID@0700,1200,1700 PO 07/24/17 07:00 08/23/17 06:59 07/25/17 16:30 5 MG Mirtazapine (Remeron Tab) 45 mg HS PO 07/23/17 21:00 08/22/17 20:59 07/25/17 21:04 45 MG Ampicillin Sodium/ Sulbactam Sodium (Consult) 1 ea UD PRN N/A 07/23/17 19:30 08/22/17 19:29 Heparin Sodium (Porcine) (Heparin 100 Unit/ml 5ml Flush) 5 ml PRN PRN IV 07/24/17 05:15 08/23/17 05:14 07/25/17 13:52 5 ML Amoxicillin/ Clavulanate Potassium (Augmentin Tab) 875 mg BIDM PO 07/25/17 17:00 07/30/17 16:59 07/25/17 16:30 875 MG Dextrose (Dextrose 50% 50ML Syringe) 25-50ML OF 50% DW IV FOR... UD PRN IV 07/25/17 23:15 08/24/17 23:14 07/25/17 23:35 25 ML Miscellaneous Information (Pharmacist Discharge Med Rec Consult) 1 ea UD PRN N/A 07/25/17 23:45 08/24/17 23:44 Potassium Chloride 40 meq/ Sodium Chloride 1,020 ml @ 100 mls/hr [id number] IV 07/26/17 03:00 07/26/17 13:11 07/26/17 04:06 100 MLS/HR Review of Systems Constitutional: + weakness, + fatigue Eyes: No worsening of vision, No diplopia ENT: No hearing loss, No tinnitus Respiratory: No cough, No shortness of breath Cardiovascular: No chest pain, No palpitations Abdomen: No pain, No nausea Musculoskeletal: No joint pain, No muscle pain Genitourinary - Female: + urinary incontinence, No dysuria Neurologic: + weakness, + numbness/tingling, + balance problems, No memory loss Psychiatric: + depression symptoms, + anxiety Endocrine: + fatigue Hematologic / Lymphatic: No abnormal bleeding/bruising Integumentary: No rash Allergic / Immunologic: No hives Physical Exam Vital Signs (Past 24 Hrs): Date Time Temp Pulse Resp B/P (MAP) Pulse Ox O2 Delivery O2 Flow Rate FiO2 07/26/17 07:49 36.7 94 16 145/83 (103) 92 Room Air 07/26/17 07:45 Room Air 07/26/17 04:00 Room Air 07/26/17 03:34 36.5 92 18 117/72 (87) 91 Room Air 07/26/17 01:15 Room Air 07/26/17 01:09 36.6 94 20 97 07/25/17 16:59 36.5 98 18 131/84 (100) 99 Room Air 07/25/17 16:10 Room Air 07/25/17 12:00 94 Room Air The patient is left-handed. The patient, also somewhat lethargic, is awake and alert. Speech is largely normal without specific aphasia or dysarthria. She is very asthenic. Mentation and thought processes seem intact with orientation and normal fund of knowledge. She was oriented to person, place, date, day, month, year, and age. Mood seems down but affect seems appropriate. Appearance and grooming are normal. The discs are sharp with positive venous pulsations. There are no exudates, hemorrhages, or blood vessel changes seen. Pupils are 4mm bilaterally and reactive to light. Extraocular eye muscles are intact, however, she has nystagmus bilaterally with fast component any direction of gaze. Visual acuity and visual marcos seem normal grossly to confrontation. There are no deficits to sensation of the face bilaterally. Corneal reflexes are positive bilaterally. Facial strength and symmetry seem normal bilaterally. There is no obvious facial droop. Hearing seems intact grossly to voice and finger rub. Palate moves well without asymmetry. There is normal sternocleidomastoid and trapezius strength bilaterally. Tongue is midline with good strength bilaterally. Neck is with full range of motion without discomfort. There are no cervical bruits. There are no cranial or ocular bruits. Heart is without murmur. Cervical, thoracic, and lumbar spine are nontender to palpation. Gait is is not testable as she is too weak. Stance sitting up in bed is impossible for her and she flops back having poor core tone and strength. With outstretched arms there is no specific drift. There are no resting, postural, or action tremors. There is no ataxia with [id number] testing. There is reasonable but somewhat diminished facility in the hands bilaterally. There are no abnormal involuntary movements noted. Motor strength is 4/5 diffusely in the arms bilaterally including deltoids, biceps, brachioradialis, wrist flexors and extensors, tire sorter, and intrinsic hand muscles. Arms are symmetrical. Motor strength is 3/5 distally in the feet/ ankles and 4 minus/5 proximally in the hip flexors and quadriceps bilaterally. Hip abductors and abductors are 4/5 bilaterally. She is thin distally in all 4 limbs with no focal atrophy. The limbs have somewhat diminished tone without rigidity. There is no spasticity in the arms but the legs have some mild spasticity. Sensory examination is intact to pin and touch throughout all four limbs. Reflexes are 1/4 in the biceps, triceps, brachioradialis, quadriceps, and Achilles tendons bilaterally. There is no clonus present bilaterally Toes are upgoing with plantar stimulation bilaterally. Peripheral pulses are present and of normal quality distally in all four limbs. There is no peripheral edema noted. Laboratory Results Past 24 Hours: 07/26/17 05:32 Red Blood Count 3.72, Mean Corpuscular Volume 93.3, Mean Corpuscular Hemoglobin 31.2, Mean Corpuscular Hemoglobin Concent 33.4, Mean Platelet Volume 10.0, Neutrophils (%) (Auto) 47.7, Lymphocytes (%) (Auto) 40.6, Monocytes (%) (Auto) 8.1, Eosinophils (%) (Auto) 2.7, Basophils (%) (Auto) 0.5, Neutrophils # (Auto) 2.65, Lymphocytes # (Auto) 2.26, Monocytes # (Auto) 0.45, Eosinophils # (Auto) 0.15, Basophils # (Auto) 0.03 07/26/17 05:32 Test 07/25/17 23:13 07/26/17 01:38 07/26/17 05:32 Bedside Glucose 74 mg/dl (70-90) Prothrombin Time 10.3 SECONDS (9.0-12.0) Prothromb Time International Ratio 1.0 (0.9-1.1) Activated Partial Thromboplast Time 36.4 SECONDS (21.0-31.0) Partial Thromboplastin Ratio 1.4 White Blood Count 5.56 K/uL (4.8-10.8) Red Blood Count 3.72 M/uL (4.2-5.4) Hemoglobin 11.6 g/dL (12.0-16.0) Hematocrit 34.7 % (37-47) Mean Corpuscular Volume 93.3 fL (80-100) Mean Corpuscular Hemoglobin 31.2 pg (25-34) Mean Corpuscular Hemoglobin Concent 33.4 g/dl (32-36) Platelet Count 239 K/uL (130-400) Mean Platelet Volume 10.0 fL (7.4-10.4) Neutrophils (%) (Auto) 47.7 % Lymphocytes (%) (Auto) 40.6 % Monocytes (%) (Auto) 8.1 % Eosinophils (%) (Auto) 2.7 % Basophils (%) (Auto) 0.5 % Neutrophils # (Auto) 2.65 K/uL (1.4-6.5) Lymphocytes # (Auto) 2.26 K/uL (1.2-3.4) Monocytes # (Auto) 0.45 K/uL (0.11-0.59) Eosinophils # (Auto) 0.15 K/uL (0-0.5) Basophils # (Auto) 0.03 K/uL (0-0.2) RDW Standard Deviation 50.0 fL (36.4-46.3) RDW Coefficient of Variation 14.6 % (11.5-14.5) Immature Granulocyte % (Auto) 0.4 % Immature Granulocyte # (Auto) 0.02 K/uL (0.00-0.02) Anion Gap 6.0 mmol/L (3-11) Est Creatinine Clear Calc Drug Dose 241.9 ml/min Estimated GFR () > 150.0 Estimated GFR (Non- 145.7 BUN/Creatinine Ratio (10-20) Estimated Average Glucose 100 mg/dl Hemoglobin A1c 5.1 % (4.5-5.6) Calcium Level 7.0 mg/dl (8.5-10.1) Total Bilirubin 0.2 mg/dl (0.2-1) Aspartate Amino Transf (AST/SGOT) 13 U/L (15-37) Alanine Aminotransferase (ALT/SGPT) 13 U/L (12-78) Alkaline Phosphatase 117 U/L (45-117) Troponin I 0.024 ng/ml (0-0.045) Total Protein 3.9 gm/dl (6.4-8.2) Albumin 1.5 gm/dl (3.4-5.0) Globulin 2.4 gm/dl (2.5-4.0) Albumin/Globulin Ratio 0.6 (0.9-2) Triglycerides Level 67 mg/dl (0-150) Cholesterol Level 106 mg/dl (0-200) HDL Cholesterol 81 mg/dl LDL Cholesterol, Calculated 12 mg/dl VLDL Cholesterol, Calculated 13 mg/dl Cholesterol/HDL Ratio 1.3 Impression 1. Multiple sclerosis, advanced. She has gradually gone from relapsing remitting to secondary progression slowly steadily over time. She is fairly stable on Tysabri all things considered an MRI of the brain back in April showed no new changes. Chronically, with her MS she has severe fatigue and easy fatigability, generalized weakness legs greater than arms, and cognitive difficulties of a mild nature. 2. Episode July 25 of slurred speech and left facial droop. This was either a TIA/very small stroke (although on examination there is no evidence for a new stroke), an exacerbation of her existing MS (her "natural" day-to-day fluctuations and easy fatigability), or something more nonspecific. She seems to be back to her baseline today on examination. 3. Migraine headaches, severe, intermittent, chronic These are a big problem for her on resulted in multiple emergency room trips over the course of the years. I initiated topiramate on July 19 at 25 mg twice a day to see if we could prevent headaches. This medication can cause some confusion at higher doses and decreased appetite , but I plan on monitoring her closely. Decreasing headaches takes precedence over possible side effects to the medication, for now. 4. History of significant depression, fairly well controlled currently. 5. Enterococcus faecalis urinary tract infection on antibiotic. 6. Coccyx decubitus ulcer, followed by wound care Plan 1. Consider MRI of the brain with and without contrast, to evaluate new stroke versus new MS lesion versus other, but this can be difficult to sort out even with a good MRI. In the end, it may not change our course of treatment anyway. 2. Physical, occupational, and speech therapy consults. 3. I see no need for anticoagulation in this patient. Antiplatelet medication (81 mg aspirin tablet daily) could be considered but she does have a history of peptic ulcer disease and GI bleed in the past. 4. If we come to the conclusion that MS is responsible for her recent symptoms , we could consider 1 g Solu-Medrol IV to see how she responds. We would have to monitor her blood pressure and although this could interfere with wound healing and infection control, she is already on an antibiotic and 1 dose should not interfere with wound healing too much. 5. Although she does have a history of dyslipidemia, her cholesterol is 106 and given her age and condition along with this low cholesterol, she would not be a candidate for high-dose statins. I spoke with Dr. Forbes regarding this case including differential diagnosis and treatment options.
[2017-07-26] MEDS: AMOXICILLIN/CLAVULANATE TAB 875 MG TAB PO SCH ×2 (09:47→16:48)
[2017-07-26] MEDS: TOPIRAMATE 25 MG TAB PO SCH (09:47)
[2017-07-26] MEDS: PANTOprazole SOD 40 MG TAB PO SCH (09:47)
[2017-07-26] MEDS: MAGNESIUM OXIDE 400 MG TAB PO SCH (09:47)
[2017-07-26] MEDS: MIDODRINE 2.5 MG TAB PO SCH ×3 (09:47→16:48)
[2017-07-26] MEDS: GABAPENTIN 800 MG TAB PO SCH ×2 (09:47→13:39)
[2017-07-26] MEDS: HEPARIN SOD 5000 UNIT/0.5 ML CARP SQ SCH (09:51)
[2017-07-26] MEDS ORDERED: METHYLPREDNISOLONE IV 1,000 MG in DEXTROSE 5% 250ML 250 ML IV ONE (10:30)
[2017-07-26] MEDS ORDERED: ULT/50 PO (11:00)
[2017-07-26] MEDS ORDERED: AMOX875T PO ×2 (11:00→11:04)
--- NOTE | 2017-07-26 11:10 | Discharge Instructions ---
Discharge Instructions Date of Service Jul 26, 2017. Admission Reason for Admission: Altered Mental Status, Uti Discharge Discharge Diagnosis / Problem: Enterococcus UTI; MS Exacerbation Discharge Goals Goal(s): Decrease discomfort, Improve function, Increase independence Activity Recommendations Activity Level: Assistance Required Therapies: Physical Therapy, Occupational Therapy . Additional Information Patient informed of condition: Yes Advance Directives: Yes DNR: No Level of Care: Skilled Communicable Disease: No Prognosis: Stable Instructions / Follow-Up Instructions / Follow-Up Ms. Jasso is a 72 y/o female with PMHx of Migraines, GERD, PUD, Orthostatic Hypotension, MS and Wheelchair Bound who presents for generalized weakness and dysuria. 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 - Generalized weakness slowly improving - Augmentin BID x 7 more days to cover for UTI and Sacral Wound Sacral Decubitus: - Seen by wound care in hospital -- Recommend follow-up with Wound Clinic - Dr. Linn in 2-3 days if possible - COCCYX WOUND: CLEAN AND DRY WOUND. APPLY OPTIFOAM GENTLE. CHANGE DAILY. CONTINUE TO KEEP MUCH PRESSURE OFF OF THE AREA POSSIBLE. RECOMMEND FOLLOW UP WITH LOCAL WOUND CARE - Wound Follow-up Care * [facility] [phone] Multiple Sclerosis: Acute Exacerbation - Did have some slurred speech and L facial droop that patient states is normal for her. Neurology evaluated patient. This could have been a TIA but may be more explainable due to MS. - Head CT without acute findings - MRI deferred at this time as symptoms resolved and given advanced MS may not change clinical course. - Given Solu-Medrol 1 g IV in-hospital - monitor blood pressure and aware of acute infection and wound - Amitriptyline 75 mg daily, Remeron 45 mg daily, and Gabapentin 800 mg TID Orthostatic Hypotension: - Midodrine 5 mg TID Migraines: - Topamax 25 mg BID Code Status: FULL RESUSCITATION Current Hospital Diet Patient's current hospital diet: Regular Diet Discharge Diet Recommended Diet: Regular Diet Pending Studies Studies pending at discharge: no Laboratory Results Hemoglobin A1c Test 07/26/17 05:32 Range/Units Estimated Average Glucose 100 mg/dl Hemoglobin A1c 5.1 4.5-5.6 % Lipid Panel Test 07/26/17 05:32 Range/Units Triglycerides Level 67 0-150 mg/dl Cholesterol Level 106 0-200 mg/dl HDL Cholesterol 81 mg/dl Cholesterol/HDL Ratio 1.3 LDL Cholesterol, Calculated 12 mg/dl Medical Emergencies . Who to Call and When: Medical Emergencies: If at any time you feel your situation is an emergency, please call 911 immediately. . Non-Emergent Contact Non-Emergency issues call your: Primary Care Provider Call Non-Emergent contact if: you have a fever, your pain is concerning you, you have any medication questions . . "Provider Documentation" section prepared by Opal Marshall. . Core Measure Problem Core Measures: None
[2017-07-26 11:31] VITALS: BP 135/84; PULSE 87; TEMP 36.7; O2SAT 96
[2017-07-26] MEDS ORDERED: SNTO30 TD (12:24)
[2017-07-26] MEDS ORDERED: NURSING VERBAL MED ORDER ONE (12:30)
[2017-07-26] MEDS ORDERED: COLLAGENASE OINT 30 GM TUBE EXT SCH (13:00)
[2017-07-26 13:21] VITALS: BP 135/84; PULSE 87; TEMP 36.7; O2SAT 96
--- NOTE | 2017-07-26 14:12 | Wound Consultation: Inpatient ---
Wound Consultation Date of Consultation: Jul 26, 2017. Attending Physician: Meagan Forbes DO Reason for Consultation: Sacral ulcer History of Present Illness Patient was admitted to [facility] 3 days ago for the treatment reevaluation of urinary tract infection. Patient states that she does not recall when an ulceration started in her lower back region. Patient thinks it might of been a few weeks ago. Patient denies any increased pain. She denies any fever chills or night sweats. Patient denies any other ulcerations. Patient denies any other systemic complaints at this time. Family History Diabetes mellitus FH: cholecystectomy FHx: heart disease Social History Smoking Status: Former Smoker Smokeless Tobacco Use: No Alcohol Use: none Drug Use: none Marital Status: Housing Status: lives with family Occupation Status: retired Allergies Coded Allergies: Morphine (Verified Adverse Reaction, Intermediate, " MAKES ME MEAN" - CONFUSION, 07/23/17) Home Medications Scheduled Alendronate Sodium (Alendronate Sodium), 70 MG PO WK Amitriptyline Hcl (Elavil), 75 MG PO HS Amoxicillin & Pot Clavulanate (Augmentin 875-125 mg), 875 MG PO BID Cholecalciferol (Vitamin D3), 4,000 INTER.UNIT PO TID Collagenase (Santyl), 1 APPLN TD DAILY Ferrous Sulfate (Ferrous Sulfate), 325 MG PO BID Gabapentin (Gabapentin), 800 MG PO TID Magnesium Oxide (Mg Supplement (Magnesium Oxide), 241.3 MG PO DAILY Methylcellulose (Laxative) (Citrucel), 2,000 MG PO QAM Midodrine Hcl (Midodrine Hcl), 5 MG PO TID Mirtazapine (Mirtazapine), 45 MG PO HS Natalizumab (Tysabri), 1 DOSE IV MONTHLY Pantoprazole (Pantoprazole Sodium), 40 MG PO BID Topiramate (Topiramate), 25 MG PO BID Scheduled PRN Acetaminophen Tab (Tylenol), 325 MG PO DAILY PRN for Pain or Fever Sumatriptan Succinate (Imitrex), 100 MG PO UD PRN for Migraine Tramadol Hcl (Ultram), 50 MG PO BID PRN for Pain Inpatient Medications Current Inpatient Medications Medications (Trade) Dose Ordered Sig/Melvin Route Start Time Stop Time Status Last Admin Dose Admin Acetaminophen (Tylenol Tab) 650 mg Q4H PRN PO 07/23/17 15:15 08/22/17 15:14 Al Hydrox/Mg Hydrox/Simethicone (Maalox Max Susp) 15 ml Q4H PRN PO 07/23/17 15:15 08/22/17 15:14 Magnesium Hydroxide (Milk Of Magnesia Susp) 30 ml Q6H PRN PO 07/23/17 15:15 08/22/17 15:14 Polyethylene (Miralax Powder Packet) 17 gm DAILY PRN PO 07/23/17 15:15 08/22/17 15:14 Ondansetron HCl (Zofran Inj) 4 mg Q6H PRN IV 07/23/17 15:15 08/22/17 15:14 Heparin Sodium (Porcine) (Heparin Sq 5000 Unit/0.5ml) 5,000 unit Q12H SQ 07/23/17 20:00 08/22/17 19:59 07/26/17 09:51 5,000 UNIT Amitriptyline HCl (Elavil Tab) 75 mg HS PO 07/23/17 21:00 08/22/17 20:59 07/25/17 21:06 75 MG Gabapentin (Neurontin Tab) 800 mg TID PO 07/23/17 21:00 08/22/17 20:59 07/26/17 13:39 800 MG Magnesium Oxide (Mag-Ox Tab) 400 mg DAILY PO 07/24/17 09:00 08/23/17 08:59 07/26/17 09:47 400 MG Pantoprazole Sodium (Protonix Tab) 40 mg BID PO 07/23/17 21:00 08/22/17 20:59 07/26/17 09:47 40 MG Topiramate (Topamax Tab) 25 mg BID PO 07/23/17 21:00 08/22/17 20:59 07/26/17 09:47 25 MG Tramadol HCl (Ultram Tab) 50 mg BID PRN PO 07/23/17 15:15 08/22/17 15:14 07/25/17 08:12 50 MG Midodrine (Proamatine Tab) 5 mg TID@0700,1200,1700 PO 07/24/17 07:00 08/23/17 06:59 07/26/17 13:39 5 MG Mirtazapine (Remeron Tab) 45 mg HS PO 07/23/17 21:00 08/22/17 20:59 07/25/17 21:04 45 MG Heparin Sodium (Porcine) (Heparin 100 Unit/ml 5ml Flush) 5 ml PRN PRN IV 07/24/17 05:15 08/23/17 05:14 07/26/17 13:35 5 ML Amoxicillin/ Clavulanate Potassium (Augmentin Tab) 875 mg BIDM PO 07/25/17 17:00 07/30/17 16:59 07/26/17 09:47 875 MG Dextrose (Dextrose 50% 50ML Syringe) 25-50ML OF 50% DW IV FOR... UD PRN IV 07/25/17 23:15 08/24/17 23:14 07/25/17 23:35 25 ML Collagenase (Santyl Oint) 1 appln DAILY EXT 07/26/17 13:00 08/25/17 12:59 07/26/17 13:39 1 APPLN Physical Exam Date Time Temp Pulse Resp B/P (MAP) Pulse Ox O2 Delivery O2 Flow Rate FiO2 07/26/17 13:21 36.7 87 16 96 Room Air 07/26/17 12:00 Room Air 07/26/17 11:31 36.7 87 16 135/84 (101) 96 Room Air 07/26/17 07:49 36.7 94 16 145/83 (103) 92 Room Air 07/26/17 07:45 Room Air 07/26/17 04:00 Room Air 07/26/17 03:34 36.5 92 18 117/72 (87) 91 Room Air 07/26/17 01:15 Room Air 07/26/17 01:09 36.6 94 20 97 07/25/17 16:59 36.5 98 18 131/84 (100) 99 Room Air 07/25/17 16:10 Room Air General: The patient is lying in a hospital bed in no distress. Alert, cooperative and appropriate to all questions. HEENT: Pupils equal and reactive to light. Sclera clear, EOM intact. Neck: Supple, No JVD noted Chest: CTA in all marcos. No deformity Heart: RRR without murmurs, S3, S4, thrills, rubs or heaves Back: There is a sacral ulceration in the midline measuring 2.7 x 1.5 x 0 cm. Eschar is present in the central portion blackening color. There is some minimal slough in the margins. No periwound erythema active drainage or odor noted. Neurological: Alert and cooperative. No focal deficits. Laboratory Results Last 24 Hours Test 07/25/17 23:13 07/25/17 23:56 07/26/17 01:38 07/26/17 05:32 Bedside Glucose 74 mg/dl White Blood Count 6.50 K/uL 5.56 K/uL Red Blood Count 3.83 M/uL 3.72 M/uL Hemoglobin 12.1 g/dL 11.6 g/dL Hematocrit 35.7 % 34.7 % Mean Corpuscular Volume 93.2 fL 93.3 fL Mean Corpuscular Hemoglobin 31.6 pg 31.2 pg Mean Corpuscular Hemoglobin Concent 33.9 g/dl 33.4 g/dl Platelet Count 253 K/uL 239 K/uL Mean Platelet Volume 10.3 fL 10.0 fL Neutrophils (%) (Auto) 61.4 % 47.7 % Lymphocytes (%) (Auto) 29.2 % 40.6 % Monocytes (%) (Auto) 6.0 % 8.1 % Eosinophils (%) (Auto) 2.9 % 2.7 % Basophils (%) (Auto) 0.3 % 0.5 % Neutrophils # (Auto) 3.99 K/uL 2.65 K/uL Lymphocytes # (Auto) 1.90 K/uL 2.26 K/uL Monocytes # (Auto) 0.39 K/uL 0.45 K/uL Eosinophils # (Auto) 0.19 K/uL 0.15 K/uL Basophils # (Auto) 0.02 K/uL 0.03 K/uL RDW Standard Deviation 49.5 fL 50.0 fL RDW Coefficient of Variation 14.6 % 14.6 % Immature Granulocyte % (Auto) 0.2 % 0.4 % Immature Granulocyte # (Auto) 0.01 K/uL 0.02 K/uL Sodium Level 145 mmol/L 145 mmol/L Potassium Level 3.0 mmol/L 3.6 mmol/L Chloride Level 115 mmol/L 115 mmol/L Carbon Dioxide Level 24 mmol/L 24 mmol/L Anion Gap 6.0 mmol/L 6.0 mmol/L Blood Urea Nitrogen 5 mg/dl 4 mg/dl Creatinine 0.25 mg/dl < 0.15 mg/dl Est Creatinine Clear Calc Drug Dose 145.1 ml/min 241.9 ml/min Estimated GFR () 142.8 > 150.0 Estimated GFR (Non- 123.2 145.7 BUN/Creatinine Ratio 18.3 Random Glucose 141 mg/dl 69 mg/dl Calcium Level 7.1 mg/dl 7.0 mg/dl Total Bilirubin 0.2 mg/dl 0.2 mg/dl Aspartate Amino Transf (AST/SGOT) 15 U/L 13 U/L Alanine Aminotransferase (ALT/SGPT) 17 U/L 13 U/L Alkaline Phosphatase 122 U/L 117 U/L Troponin I 0.027 ng/ml 0.024 ng/ml Total Protein 4.2 gm/dl 3.9 gm/dl Albumin 1.6 gm/dl 1.5 gm/dl Globulin 2.6 gm/dl 2.4 gm/dl Albumin/Globulin Ratio 0.6 0.6 Prothrombin Time 10.3 SECONDS Prothromb Time International Ratio 1.0 Activated Partial Thromboplast Time 36.4 SECONDS Partial Thromboplastin Ratio 1.4 Estimated Average Glucose 100 mg/dl Hemoglobin A1c 5.1 % Triglycerides Level 67 mg/dl Cholesterol Level 106 mg/dl HDL Cholesterol 81 mg/dl LDL Cholesterol, Calculated 12 mg/dl VLDL Cholesterol, Calculated 13 mg/dl Cholesterol/HDL Ratio 1.3 Assessment & Plan Assessment: Unstageable pressure ulcer sacral region Plan: At this time the site did require management with scoring of the eschar with a #11 blade. This was performed with the patient's permission after application of topical Xylocaine 4%. Some marginal slough was also removed. Santyl and gauze dressings will be applied changed daily patient will be reevaluated in 1 week or sooner. This represented a non-excisional debridement of less than 20 cm.
[2017-07-26 15:22] VITALS: BP 103/69; PULSE 97; TEMP 36.4; O2SAT 94
[2017-07-26] MEDS: TRAMADOL HCL 50 MG TAB PO PRN (16:48)
--- NOTE | 2017-07-26 17:58 | Discharge Summary ---
Discharge Summary Date of Service Jul 26, 2017. (Opal Marshall PA-C) Discharge Summary Admission Date: Jul 23, 2017 at 16:00 Discharge Date: Jul 26, 2017 Discharge Disposition: correction facility Principal Diagnosis: MDR Enterococcus and MS Exacerbation Problems/Secondary Diagnoses: 1. Migraines 2. GERD 3. PUD 4. Orthostatic Hypotension 5. Multiple Sclerosis Immunizations: Have You Had Influenza Vaccine: Yes Influenza Vaccine Date: Sep 09, 2013 History of Tetanus Vaccine?: Yes Tetanus Immunization Date: Oct 12, 2002 History of Pneumococcal: UNSURE Pneumococcal Date: Sep 03, 2011 History of Hepatitis B Vaccine: No Procedures: HEAD WITHOUT CONTRAST (CT) Country Director topogram: Unremarkable. Ventricles and sulci normal in size. Periventricular and subcortical white matter hypoattenuation, nonspecific but likely indicative of chronic small vessel ischemic change. No mass effect or midline shift. No hemorrhage or acute territorial infarct. No extra-axial fluid collection. Paranasal sinuses and mastoid air cells clear. Calvarium intact. IMPRESSION: 1. No acute intracranial pathology. LEFT ANKLE 2 VIEWS DISCUSSION: The bones are osteopenic. No acute fractures are visualized. There are no erosive or destructive changes. There is mild diffuse soft tissue swelling. IMPRESSION: Mild soft tissue swelling. Osteopenia. No acute fractures. Consultations: 1. Wound Care 2. Neurology 3. PT/OT (Opal Marshall PA-C) Medication Reconciliation New Medications: Collagenase (Santyl) 250 Unit/Gm Oin 1 APPLN TD DAILY for 14 Days, #1 TUBE 0 Refills Continued Medications: Acetaminophen Tab (Tylenol) 325 Mg Tab 325 MG PO DAILY PRN for Pain or Fever Alendronate Sodium (Alendronate Sodium) 70 Mg Tab 70 MG PO WK TAKE THIS MEDICATION EVERY MONDAY. Amitriptyline Hcl (Elavil) 75 Mg Tab 75 MG PO HS TAKE THIS MEDICATION 2-3 HOURS BEFORE BEDTIME. Amoxicillin & Pot Clavulanate (Augmentin 875-125 mg) 1 Tab Tab 875 MG PO BID for 7 Days, #13 TAB (This prescription has been renewed) Take evening dose on 07/26 then resume twice a day on 07/27 Cholecalciferol (Vitamin D3) 1,000 Unit Tab 4000 INTER.UNIT PO TID Ferrous Sulfate (Ferrous Sulfate) 325 Mg Tab 325 MG PO BID Gabapentin (Gabapentin) 800 Mg Tab 800 MG PO TID Magnesium Oxide (Mg Supplement (Magnesium Oxide) 241.3 Mg Tab 241.3 MG PO DAILY Methylcellulose (Laxative) (Citrucel) 500 Mg Tab 2000 MG PO QAM Midodrine Hcl (Midodrine Hcl) 5 Mg Tab 5 MG PO TID Mirtazapine (Mirtazapine) 45 Mg Tab 45 MG PO HS Natalizumab (Tysabri) Unknown Strength Inj 1 DOSE IV MONTHLY Pantoprazole (Pantoprazole Sodium) 40 Mg Tab 40 MG PO BID Sumatriptan Succinate (Imitrex) 100 Mg Tab 100 MG PO UD PRN for Migraine TAKE 1 TABLET FOR MIGRAINE RELIEF, MAY REPEAT 2 HOURS LATER IF NEEDED. MAXIMUM 200 MG/DAY. Topiramate (Topiramate) 25 Mg Tab 25 MG PO BID Tramadol Hcl (Ultram) 50 Mg Tab 50 MG PO BID PRN for Pain for 3 Days, #6 TAB (This prescription has been renewed ) Discharge Exam Review of Systems: Constitutional: + weakness (chronic bilateral lower extremities), No fever, No chills Respiratory: No cough, No shortness of breath Cardiovascular: No chest pain, No palpitations Abdomen: No pain, No nausea, No vomiting, No diarrhea, No constipation Genitourinary - Female: No dysuria Hematologic / Lymphatic: No abnormal bleeding/bruising Integumentary: No rash Physical Exam: General Appearance: no apparent distress, + thin Eyes: sclerae normal ENT: hearing grossly normal Neck: supple, no JVD, trachea midline Respiratory/Chest: lungs clear, normal breath sounds, no respiratory distress, no accessory muscle use Cardiovascular: regular rate, rhythm, no gallop, no murmur Abdomen / GI: normal bowel sounds, non tender, soft Extremities: no calf tenderness, no pedal edema Neurologic/Psychiatric: alert, oriented x 3, + facial droop (minimal L droop ) Skin: normal color, warm/dry (Opal Marshall, MELAC) Hospital Course ADMISSION: 72 y/o F Hx MS, Migraines, GERD, PUD, orthostatic hypotension - wheelchair bound - presented to the ER one day prior with weakness and dysuria. Pt was D/Cd with Augmentin. She did not comply with her meds, possibly due to confusion, per her family. She is lethargic but awake and alert at the time of evaluation. She complains mostly of weakness which acutely worsened this AM . She has frequent UTIs and weakness is not unusual for her during an infection which can exacerbate her MS symptoms. She denies confirmed fevers/ rigors, SOB, CP, MCKOEN, N/V. HOSPITAL COURSE: Ms. Jasso was admitted for MDR Enterococcus UTI and Possible MS Exacerbation. She was started Unasyn and Vancomycin with conversion to Augmentin to complete a 10 day course. She also has a sacral decubitus ulcer that was evaluated by Dr. Linn and will continue to be followed by wound care. Patient reports some improvement with generalized weakness and complete resolution of urinary symptoms. Patient is also noted to be at baseline mentation. On 07/25, patient noted to be more confused, slurring speech, and with a L facial droop (chronic). Patient underwent Head CT which was unremarkable and neurology was consulted. Symptoms resolved and this may be likely more MS exacerbation and was treated with Solu-Medrol 1 g IV x 1 dose. MRI was deferred at this time given resolution of symptoms. Patient has become progressively weak in the setting of her MS and acute rehab was recommended. She is optimal for D/C to [facility] for rehab. Total Time Spent: Greater than 30 minutes This includes examination of the patient, discharge planning, medication reconciliation, and communication with other providers. (Opal Marshall PA-C) Discharge Instructions Please refer to the electronic Patient Visit Report (Discharge Instructions) for additional information. (Opal Marshall PA-C) Additional Copies To George Montoya M.D. Reviewed: Pt Seen/Exam by Me (Meagan Forbes DO) History Pt is feeling improved. Tolerating PO. Feels at her baseline. Agree with HPI/ROS as noted. (Meagan Forbes, ) General Appearance: no apparent distress, thin Respiratory: normal breath sounds, no respiratory distress Cardiovascular: normal peripheral pulses, regular rate, rhythm Gastrointestinal: non tender, soft Extremities: non-tender, no pedal edema Neurologic/Psychiatric: alert, oriented x 3, other (slightly sluggish speech) Skin Characteristics: normal color, warm/dry (Meagan Forbes DO) Assessment/Plan Agree with plan as outlined above Sacral debub dx in ED and started on Augmentin 07/22 Now with UTI, gram + cocci, sensitive to augmentin and will resume 07/25 MS: stable Metabolic encephalopathy likely related to UTI and possible early sepsis Blood cx neg on prelim feels he cannot care for pt at home, referrals pending for [facility] overnight for possible CVA vs TIA. CT head WNL Discussed with pt's neurologist who feels likely MS related sx. States it could have been a small CVA or TIA, however given pt's other medical issues, aspirin, etc are not appropriate. Recs for single dose of solu-medrol and can d/c to [facility] (Meagan Forbes, DO)
[2017-08-25] MEDS ORDERED: PRED10TA PO (16:06)
[2017-08-25] MEDS ORDERED: LORA-741 PO (16:06)
[2017-08-25] MEDS ORDERED: ULT/50 PO (16:06)
== END 2017-07-26 19:15 | DRG 689 ==
LOC: EDBD 11:02 → C.EDB 11:04 → C.2T 16:00 → EDBEDREQSVC 16:25 → ENRESERV 17:13 → C.MS2W 07-24 16:56 → ENRESERV 07-26 00:12 → C.MED 07-26 00:19
PROVIDERS: ADMIT Internal Medicine; ATTEND Family Medicine
DX: N39.0 Urinary tract infection, site not specified (principal); G93.41 Metabolic encephalopathy; I10 Essential (primary) hypertension; K27.7 Chronic peptic ulcer, site unspecified, without hemorrhage or perforation; L89.150 Pressure ulcer of sacral region, unstageable; G35 Multiple sclerosis; Z90.3 Acquired absence of stomach [part of]; Z87.891 Personal history of nicotine dependence; K21.9 Gastro-esophageal reflux disease without esophagitis; G43.909 Migraine, unspecified, not intractable, without status migrainosus; I95.1 Orthostatic hypotension; Z16.29 Resistance to other single specified antibiotic; Z91.14 Patient's other noncompliance with medication regimen; Z87.440 Personal history of urinary (tract) infections; B95.2 Enterococcus as the cause of diseases classified elsewhere; R47.81 Slurred speech; R29.810 Facial weakness; L03.818 Cellulitis of other sites; Z79.899 Other long term (current) drug therapy; Z86.19 Personal history of other infectious and parasitic diseases; Z87.11 Personal history of peptic ulcer disease; Z82.49 Family history of ischemic heart disease and other diseases of the circulatory system; Z83.3 Family history of diabetes mellitus

== ENCOUNTER → 2017-07-27 | Outpatient (CLI) | payer OTHER ==
[~2017-07-27] MED LIST changes: +ACET650S10 PR; +BISA10SU38 PR; +CALC500C3 PO; +CLOTCRE33 TOP; +CRFL PO; +DEXT40GE PO; +GLGKIT IM; +LIQUID PROTEIN PO; +LORA-741 PO; +MAGN400C3 PO; +MISCCAP80 PO; +MOML PO; +MULTTAB58 PO; +ONDA4TAB46 PO; +POTA-74 PO; +PRED10TA PO; +SNTO30 TD; +SODIENE PR
== END | disposition home or self-care (01) ==
LOC: C.LABUPNIT 15:12
PROVIDERS: ATTEND Nurse Practitioner Family
DX: A04.7 Enterocolitis due to Clostridium difficile (principal)

== ENCOUNTER → 2017-07-28 | Outpatient (CLI) | payer OTHER ==
[2017-07-28 09:01] LABS: HEMATOCRIT 35.7 % (37-47); MEAN CELL VOLUME 94.9 fL (80-100); MEAN CORPUSCULAR HEMOGLOBIN 31.9 pg (25-34); MEAN CORPUSCULAR HGB CONC 33.6 g/dl (32-36); MEAN PLATELET VOLUME 10.8 fL (7.4-10.4); PLATELET COUNT 304 K/uL (130-400); RED BLOOD COUNT 3.76 M/uL (4.2-5.4)
[2017-07-28 09:30] LABS: ALB/GLOB RATIO 0.7 (0.9-2); ALKALINE PHOSPHATASE 105 U/L (45-117); ALT/SGPT 14 U/L (12-78); AST/SGOT 16 U/L (15-37); BLOOD UREA NITROGEN 10 mg/dl (7-18); BUN/CREATININE RATIO 28.8 (10-20); CALCIUM 8.4 mg/dl (8.5-10.1); CARBON DIOXIDE 24 mmol/L (21-32); CHLORIDE 114 mmol/L (98-107); CREATININE 0.34 mg/dl (0.60-1.20); GLUCOSE 63 mg/dl (70-99); POTASSIUM 3.6 mmol/L (3.5-5.1); SODIUM 143 mmol/L (136-145)
== END | disposition home or self-care (01) ==
LOC: C.LABUPUNI 08:17
PROVIDERS: ATTEND Nurse Practitioner Family
DX: D64.9 Anemia, unspecified (principal); I95.1 Orthostatic hypotension; M81.0 Age-related osteoporosis without current pathological fracture

== ENCOUNTER → 2017-07-31 | Outpatient (CLI) | payer OTHER | LOC: C.LABUPNIT 15:30 | PROVIDERS: ATTEND Nurse Practitioner Family | DX: A04.7 Enterocolitis due to Clostridium difficile (principal) ==

== ENCOUNTER → 2017-08-02 | Outpatient (CLI) | payer OTHER ==
[2017-08-10 08:38] LABS: O&P GIARDIA AG NOT DETECTED (NOT DETECTED); O&P SOURCE OTHER-STOOL
== END ==
LOC: C.LABSPEC 14:16
PROVIDERS: ATTEND Nurse Practitioner Family
DX: A04.7 Enterocolitis due to Clostridium difficile (principal)

== ENCOUNTER → 2017-08-03 | Outpatient (CLI) | payer OTHER ==
[2017-08-03 09:08] LABS: HEMATOCRIT 37.7 % (37-47); MEAN CORPUSCULAR HEMOGLOBIN 31.2 pg (25-34); MEAN CORPUSCULAR HGB CONC 33.2 g/dl (32-36); MEAN PLATELET VOLUME 10.4 fL (7.4-10.4); PLATELET COUNT 314 K/uL (130-400); RED BLOOD COUNT 4.01 M/uL (4.2-5.4); WHITE BLOOD COUNT 7.08 K/uL (4.8-10.8)
[2017-08-03 09:19] LABS: BLOOD UREA NITROGEN 10 mg/dl (7-18); BUN/CREATININE RATIO 42.6 (10-20); CALCIUM 8.4 mg/dl (8.5-10.1); CARBON DIOXIDE 29 mmol/L (21-32); CHLORIDE 110 mmol/L (98-107); CREATININE 0.23 mg/dl (0.60-1.20); GLUCOSE 65 mg/dl (70-99); POTASSIUM 3.3 mmol/L (3.5-5.1); SODIUM 146 mmol/L (136-145)
== END ==
LOC: C.LABUPUNI 08:44
PROVIDERS: ATTEND Nurse Practitioner Family
DX: D64.9 Anemia, unspecified (principal); G35 Multiple sclerosis

== ENCOUNTER → 2017-08-08 | Outpatient (CLI) | payer OTHER | LOC: C.LABUPUNI 08:44 | PROVIDERS: ATTEND Nurse Practitioner Family | DX: I95.1 Orthostatic hypotension (principal) ==

== ENCOUNTER → 2017-08-12 | Outpatient (CLI) | payer OTHER ==
[~2017-08-12] MED LIST changes: -PRED10TA PO
[2017-08-12 13:31] LABS: GLUCOSE 80 mg/dl (70-99)
[2017-08-12 13:32] LABS: ALT/SGPT 26 U/L (12-78); AST/SGOT 35 U/L (15-37); BLOOD UREA NITROGEN 17 mg/dl (7-18); BUN/CREATININE RATIO 54.4 (10-20); CALCIUM 8.7 mg/dl (8.5-10.1); CARBON DIOXIDE 30 mmol/L (21-32); CHLORIDE 109 mmol/L (98-107); CREATININE 0.31 mg/dl (0.60-1.20); POTASSIUM 4.6 mmol/L (3.5-5.1); SODIUM 144 mmol/L (136-145)
[2017-08-12 13:38] LABS: ALB/GLOB RATIO 0.6 (0.9-2); ALKALINE PHOSPHATASE 137 U/L (45-117); THYROID STIMULATING HORMONE 0.726 uIu/ml (0.300-4.500)
[2017-08-13 09:23] LABS: BASO % 0.4 %; BASO ABS # 0.03 K/uL (0-0.2); EOS % 3.2 %; HEMATOCRIT 44.7 % (37-47); IG% 0.4 %; LYMPH % 42.8 %; LYMPH ABS # 3.44 K/uL (1.2-3.4); MEAN CELL VOLUME 93.1 fL (80-100); MEAN CORPUSCULAR HEMOGLOBIN 31.9 pg (25-34); MEAN PLATELET VOLUME 10.6 fL (7.4-10.4); NEUT % 44.2 %; PLATELET COUNT 435 K/uL (130-400); WHITE BLOOD COUNT 8.04 K/uL (4.8-10.8)
[2017-08-13 09:30] LABS: COMPLETE YES; MEAN CORPUSCULAR HGB CONC 34.2 g/dl (32-36)
== END ==
LOC: C.LABUPUNI 13:01
PROVIDERS: ATTEND Nurse Practitioner Family
DX: G35 Multiple sclerosis (principal); M62.81 Muscle weakness (generalized); R48.8 Other symbolic dysfunctions; D64.9 Anemia, unspecified

== ENCOUNTER → 2017-08-14 | Outpatient (CLI) | payer OTHER ==
[~2017-08-14] MED LIST changes: +PRED10TA PO
[2017-08-14 09:50] LABS: BASO % 0.2 %; BASO ABS # 0.02 K/uL (0-0.2); COMPLETE YES; EOS % 2.9 %; HEMATOCRIT 41.5 % (37-47); IG% 0.2 %; LYMPH % 35.2 %; LYMPH ABS # 2.84 K/uL (1.2-3.4); MEAN CORPUSCULAR HEMOGLOBIN 31.4 pg (25-34); MEAN PLATELET VOLUME 10.9 fL (7.4-10.4); MONO % 11.3 %; NEUT % 50.2 %; PLATELET COUNT 367 K/uL (130-400); RED BLOOD COUNT 4.37 M/uL (4.2-5.4); WHITE BLOOD COUNT 8.06 K/uL (4.8-10.8)
--- NOTE | 2017-08-17 11:38 | CODING QUERY NO DIAGNOSIS ---
: 1945 TREATMENT RENDERED WITHOUT A DIAGNOSIS To promote full compliance with coding requirements relating to patient care, physician participation is requested in all cases of golf cart assembler uncertainty. Please assist us with providing a diagnosis/symptom for the test(s) below: A diagnosis/symptom was not documented on your Order. A valid diagnosis/symptom is required to bill all insurances. Please remember that we are unable to code a diagnosis of rule out, probable, possible, questionable, or suspected. Tests that require a diagnosis: DOS: 08/14/2017 CBC with Diff DIAGNOSIS: Provider Signature: Date: Thank you Gali Stack [facility] Information Management Once completed, please kindly fax back to [phone] For questions please call [phone]
== END ==
LOC: C.LABUPNIT 09:08
PROVIDERS: ATTEND Nurse Practitioner Family
DX: R11.2 Nausea with vomiting, unspecified (principal); R19.7 Diarrhea, unspecified

== ENCOUNTER 2017-08-15 10:31 | Inpatient (IN) | payer OTHER ==
[~2017-08-15] VITALS: Ht 160 cm; Wt 41.0 kg
[~2017-08-15 10:31] MED LIST changes: -ACET650S10 PR; -BISA10SU38 PR; -CALC500C3 PO; -CLOTCRE33 TOP; -CRFL PO; -DEXT40GE PO; -GLGKIT IM; -LIQUID PROTEIN PO; -LORA-741 PO; -MAGN400C3 PO; -MISCCAP80 PO; -MOML PO; -MULTTAB58 PO; -ONDA4TAB46 PO; -POTA-74 PO; -SODIENE PR
[2017-08-15] MEDS ORDERED: POTA-74 PO (10:54)
[2017-08-15] MEDS ORDERED: CRFL PO (10:56)
[2017-08-15] MEDS ORDERED: ACET650S10 PR (10:59)
[2017-08-15] MEDS ORDERED: LORA-741 PO (10:59)
[2017-08-15] MEDS ORDERED: GLGKIT IM (10:59)
[2017-08-15] MEDS ORDERED: ONDA4TAB46 PO (11:02)
[2017-08-15] MEDS ORDERED: CLOTCRE33 TOP (11:02)
[2017-08-15] MEDS ORDERED: DEXT40GE PO (11:06)
[2017-08-15] MEDS ORDERED: MOML PO (11:06)
[2017-08-15] MEDS ORDERED: CALC500C3 PO (11:06)
[2017-08-15] MEDS ORDERED: SODIENE PR (11:08)
[2017-08-15] MEDS ORDERED: BISA10SU38 PR (11:08)
[2017-08-15] MEDS ORDERED: MULTTAB58 PO (11:16)
[2017-08-15] MEDS ORDERED: LIQUID PROTEIN PO (11:17)
[2017-08-15] MEDS ORDERED: MISCCAP80 PO (11:17)
[2017-08-15] MEDS ORDERED: SODIUM CHLORIDE 0.9% 1000ML 1,000 ML IV STA (12:00)
[2017-08-15] MEDS ORDERED: GI COCKTAIL PO STA (12:00)
[2017-08-15] MEDS ORDERED: SODIUM CHLORIDE 0.9% 1000ML 500 ML IV STA (12:00)
--- NOTE | 2017-08-15 12:02 | EMERGENCY ROOM VISIT NOTE ---
History Report prepared by Fidencio: Shari Soto Under the Supervision of: Dr. Jason Byers M.D. First contact with patient: 11:42 Chief Complaint: ILLNESS Stated Complaint: ABDOMINAL PAIN History of Present Illness The patient is a 72 year old female who presents to the Emergency Room with complaints of persistent chest pain that began several days ago. She currently rates her discomfort as a 10/10 in severity. Per nursing staff, the patient arrives from the [facility] with a decrease in appetite and weight loss. The patient states that she has noticed pain in her chest especially after swallowing food. She denies any history of problems with her esophagus. The patient denies any history of reflux. She reports loose bowel movements recently but denies any diarrhea. The patient states that she has been feeling thirsty. She denies any urinary symptoms. The patient denies any history of an endoscopy. She states that she no longer walks and states that she gets around with a wheelchair. Source of History: patient, nursing staff Onset: several days ago Position: chest Symptom Intensity: 10/10 Timing: other (persistent) Modifying Factors (Worsening): other (swallowing) Associated Symptoms: No diarrhea, No urinary symptoms Review of Systems See HPI for pertinent positives & negatives. A total of 10 systems reviewed and were otherwise negative. Past Medical & Surgical Medical Problems: (1) Altered mental status (2) Altered mental status, unspecified (3) Benign hypertension (4) Chronic peptic ulcer (5) Hysterectomy (6) Intertrochanteric fracture of right hip (7) Intertrochanteric fracture of right hip (8) Migraine (9) Multiple sclerosis (10) Multiple sclerosis (11) Multiple sclerosis exacerbation (12) non cardiac chest pain related to gi (13) Sepsis (14) STAPHYLOCOCCAL SEPTICEMIA, NEC (15) UTI (urinary tract infection) Surgical Problems: (1) S/P partial gastrectomy Family History Diabetes mellitus FH: cholecystectomy FHx: heart disease Social History Smoking Status: Former Smoker Alcohol Use: none Drug Use: none Marital Status: Housing Status: lives with family Occupation Status: retired Current/Historical Medications Scheduled Alendronate Sodium (Alendronate Sodium), 70 MG PO WK Amitriptyline Hcl (Elavil), 75 MG PO HS Calcium Carbonate (Tums), 500 MG PO Q6H Cholecalciferol (Vitamin D3), 4,000 INTER.UNIT PO TID Clotrimazole W/ Betamethasone (Lotrisone), 1 APPLN TOP BID Ferrous Sulfate (Ferrous Sulfate), 325 MG PO BID Gabapentin (Gabapentin), 800 MG PO TID Lorazepam (Ativan), 0.5 MG PO TID Magnesium Oxide (Mg Supplement (Magnesium Oxide), 241.3 MG PO DAILY Midodrine Hcl (Midodrine Hcl), 5 MG PO TID Mirtazapine (Mirtazapine), 45 MG PO HS Multiple Vitamin (Multivitamin), 1 TAB PO DAILY Natalizumab (Tysabri), 1 DOSE IV MONTHLY Pantoprazole (Pantoprazole Sodium), 40 MG PO BID Potassium Chloride (Potassium Chloride Er), 10 MEQ PO QAM Probiotic Product (Probiotic), 1 CAP PO BID Sodium Phosphate/Biphosphate (Fleet Enema), 1 EA NH DAILY Sucralfate (Carafate), 10 ML PO TIDM Topiramate (Topiramate), 25 MG PO BID [Liquid Protein], 1 DOSE PO BID Scheduled PRN Acetaminophen (Tylenol), 1 SUPP NH Q6H PRN for MILD PAIN OR FEVER Acetaminophen Tab (Tylenol), 325 MG PO DAILY PRN for Pain or Fever Bisacodyl (Dulcolax), 1 SUPP NH Q4DAYS PRN for Constipation Dextrose (Diabetic Use) (Insta-Glucose), 1 DOSE PO UD PRN for HYPOGLYCEMIA PROTOCOL Glucagon (Glucagon Emergency Kit), 1 MG IM UD PRN for HYPOGLYCEMIA PROTOCOL Magnesium Hydroxide (Milk Of Magnesia), 30 ML PO UD PRN for Constipation Ondansetron Hcl (Zofran), 4 MG PO Q8H PRN for Nausea Sumatriptan Succinate (Imitrex), 100 MG PO UD PRN for Migraine Tramadol Hcl (Ultram), 50 MG PO BID PRN for Pain Allergies Coded Allergies: Morphine (Verified Adverse Reaction, Intermediate, " MAKES ME MEAN" - CONFUSION, 08/15/17) Physical Exam Vital Signs Date Time Temp Pulse Resp B/P (MAP) Pulse Ox O2 Delivery O2 Flow Rate FiO2 08/15/17 14:01 89 14 08/15/17 13:31 91 22 100 08/15/17 13:08 106 08/15/17 13:03 142/94 08/15/17 12:50 Room Air 08/15/17 10:41 36.5 112 18 126/84 99 Room Air Physical Exam GENERAL: Patient is in no acute distress. HEENT: No acute trauma, normocephalic atraumatic, mucous membranes dry, no nasal congestion, no scleral icterus. NECK: No stridor, no adenopathy, no meningismus, trachea is midline. LUNGS: Clear to auscultation bilaterally, no wheeze, no rhonchi, breath sounds equal. HEART: Without murmurs gallops or rubs, regular rate and rhythm. ABDOMEN: Soft, nontender, bowel sounds positive, no hernias, no peritonitis. EXTREMITIES: Mild edema. No cyanosis, full range of motion of all the joints without pain or difficulty, no signs for acute trauma. NEUROLOGIC: Awake and alert, minimal function of lower extremities secondary MS. SKIN: No rash, no jaundice, no diaphoresis. Medical Decision & Procedures ER Provider Diagnostic Interpretation: Radiology results as stated below per my review and radiologist interpretation: CHEST ONE VIEW PORTABLE CLINICAL HISTORY: 72 years-old Female presenting with CHEST PAIN. TECHNIQUE: Portable upright AP view of the chest was obtained. COMPARISON: 06/17/2017. FINDINGS: The tip of the left subclavian Mediport is not visualized, likely projecting over the extended thoracolumbar hardware. Atherosclerosis of aortic arch. Cardiac silhouette normal in size. Mild hyperinflation, unchanged. No focal infiltrate. No large effusion or pneumothorax. The posterior left eighth rib is not apparent consistent with post treatment changes. Cholecystectomy clips. Anastomotic suture lines project over the epigastrium. A vascular stent device is partially visualized in the region of the abdominal aorta. IMPRESSION: 1. Hyperinflation. No focal infiltrate. No convincing evidence of acute cardiopulmonary disease. Electronically signed by: Ho Shafer M.D. 08/15/2017 12:41 PM Dictated Date/Time: 08/15/2017 12:38 PM ABD/PELVIS IV CONTRAST ONLY HISTORY: 72 years-old Female ABD PAIN, POSS OBSTRUCTION, IV CONTRAST ONLY acute generalized abdominal pain. COMPARISON: CT pelvis 07/22/2017, CT abdomen and pelvis 11/04/2015 CT chest 05/09/2017 and 01/26/2015 TECHNIQUE: Multiple axial CT images of the abdomen and pelvis were obtained following the intravenous administration of 94 mL Optiray 320. A dose lowering technique was used consistent with the principals of PRO. FINDINGS: Study is limited secondary to prominent streak artifact from spine fusion hardware. There is a spiculated 9 x 6 mm noncalcified pulmonary nodule within the right lower lobe which appears unchanged from CT chest of 05/09/2017, however is new from 01/26/2015, again appearing suspicious. Linear subsegmental consolidative opacities of the lung bases bilaterally suggest areas of scarring and atelectasis. No pneumoperitoneum identified. Pectus excavatum deformity noted with the imaged inferior cardiac chambers mildly enlarged. Low attenuating circumscribed 6 mm lesion of the lateral left hepatic lobe is nonspecific, however is unchanged suggesting benign etiology such as a cyst. Prior cholecystectomy with unchanged mild intrahepatic and extrahepatic biliary ductal dilation, likely secondary to postcholecystectomy state. Spleen is unremarkable. There is a low attenuating 4 x 4 mm lesion noted involving the mid pancreatic body anteriorly which is unchanged dating back to at least 11/04/2015 suggesting benign etiology such as focal side branch dilation from chronic pancreatitis or side branch IPMN. Moderate to severe background pancreatic atrophy noted. Large 5.4 cm mildly complex cyst of the inferior pole left kidney redemonstrated with calcified linear septation again noted along the inferior margin. Nonobstructing calculi are seen within the interpolar left kidney measuring up to 6 mm. No hydronephrosis identified. There is marked wall thickening with bladder wall trabeculations and multiple bladder diverticula redemonstrated. Uterus appears to be surgically absent. There is extensive atherosclerosis of the abdominal aorta. No bulky retroperitoneal adenopathy identified. Postsurgical changes are seen involving the stomach and jejunum suggesting prior Jakub-en-Y gastric bypass. No bowel obstruction identified. Nonspecific 2.0 cm calcified structure is noted posterior to the bladder. There is wall thickening and mucosal hyperemia noted involving the rectum and sigmoid colon and to lesser extent the descending colon. The appendix is not definitively seen. No secondary signs of acute appendicitis. Prequel calcifications involve the right breast. Mild diffuse body wall edema. The bones are severely demineralized. Right hip arthroplasty noted. Cannulated screws are seen within the left hip. There is convex left curvature of the lumbar spine. No acute bony abnormality identified. Extensive posterior tatiana and screw fusion of the thoracolumbar spine redemonstrated. Mild skin ulceration of the sacral region redemonstrated without drainable fluid collection. IMPRESSION: 1. Suggested proctocolitis without evidence of bowel obstruction or perforation. 2. Marked trabeculation, wall thickening and diverticula of the urinary bladder redemonstrated suggesting sequela of chronic bladder outlet obstruction. 3. Skin ulceration of the sacral region redemonstrated without drainable fluid collection. 4. Spiculated partially imaged noncalcified pulmonary nodule of the right lower lobe measuring 9 mm is redemonstrated, again appearing suspicious. Follow-up chest CT recommended to exclude progressive abnormality. 5. Left nephrolithiasis without hydronephrosis. 6. Additional incidental findings as above. The above report was generated using voice recognition software. It may contain grammatical, syntax or spelling errors. Electronically signed by: Dustin Johnson M.D. 08/15/2017 2:47 PM Dictated Date/Time: 08/15/2017 2:30 PM Laboratory Results 08/15/17 12:55 08/15/17 12:55 Test 08/15/17 12:55 Red Blood Count 4.25 M/uL (4.2-5.4) Mean Corpuscular Volume 93.9 fL (80-100) Mean Corpuscular Hemoglobin 30.6 pg (25-34) Mean Corpuscular Hemoglobin Concent 32.6 g/dl (32-36) RDW Standard Deviation 53.5 fL (36.4-46.3) RDW Coefficient of Variation 15.5 % (11.5-14.5) Mean Platelet Volume 10.4 fL (7.4-10.4) Prothrombin Time 10.7 SECONDS (9.0-12.0) Prothromb Time International Ratio 1.0 (0.9-1.1) Activated Partial Thromboplast Time 29.1 SECONDS (21.0-31.0) Partial Thromboplastin Ratio 1.1 Anion Gap 9.0 mmol/L (3-11) Est Creatinine Clear Calc Drug Dose 178.8 ml/min Estimated GFR () > 150.0 Estimated GFR (Non- 134.8 BUN/Creatinine Ratio 71.6 (10-20) Calcium Level 8.6 mg/dl (8.5-10.1) Magnesium Level 1.9 mg/dl (1.8-2.4) Total Bilirubin 0.2 mg/dl (0.2-1) Aspartate Amino Transf (AST/SGOT) 22 U/L (15-37) Alanine Aminotransferase (ALT/SGPT) 21 U/L (12-78) Alkaline Phosphatase 122 U/L (45-117) Troponin I 0.030 ng/ml (0-0.045) Total Protein 4.9 gm/dl (6.4-8.2) Albumin 1.9 gm/dl (3.4-5.0) Globulin 3.0 gm/dl (2.5-4.0) Albumin/Globulin Ratio 0.6 (0.9-2) Lipase 56 U/L (73-393) Laboratory results reviewed by me. Medications Administered Medications (Trade) Dose Ordered Sig/Melvin Route Start Time Stop Time Status Last Admin Dose Admin Sodium Chloride 500 ml @ 999 mls/hr Q31M STAT IV 08/15/17 12:00 08/15/17 12:30 DC 08/15/17 13:01 999 MLS/HR Sodium Chloride 1,000 ml @ 125 mls/hr Q8H STAT IV 08/15/17 12:00 08/15/17 19:59 08/15/17 15:11 125 MLS/HR Al Hydroxide/Mg Hydroxide (Maalox Susp) 30 ml STK-MED ONCE .ROUTE 08/15/17 12:59 08/15/17 13:00 DC 08/15/17 13:04 30 ML Lidocaine HCl (Viscous Lidocaine 2% Soln) 20 ml STK-MED ONCE .ROUTE 08/15/17 13:00 08/15/17 13:01 DC 08/15/17 13:04 20 ML Sodium Chloride 500 ml @ 999 mls/hr Q31M STAT IV 08/15/17 13:40 08/15/17 14:10 DC 08/15/17 14:41 999 MLS/HR ECG Indication: chest pain Rate (beats per minute): 103 Rhythm: sinus tachycardia Findings: PVC, T-wave inversion (anteriorly and laterally) Comparison ECG Date: 07/24/17 Change: no significant change ED Course 1150: The patient was evaluated in room A9A. A complete history and physical exam was performed. 1200: Ordered Sodium Chloride 1000 ml @ 125 mls/hr IV, GI Cocktail 24 ml PO, Sodium Chloride 500 ml @ 999 mls/hr IV. 1340: Ordered Sodium Chloride 500 ml @ 999 mls/hr IV. 1456: I reevaluated the patient and she is resting. I discussed the exam findings with her and I discussed the treatment plan. She verbalized complete understanding and agreement. She is going to be evaluated for further treatment. 1500: I discussed the patients case with JONY Hernandez. He is going to evaluate the patient for further treatment. Medical Decision The patient is a 72 year old female who presents to the ED with complaints of chest pain. Differential diagnoses considered include Cardiac ischemia, RI, reflux, gastritis, pneumonia, anemia, electrolyte imbalance, renal failure, dehydration . There is no leukocytosis or worrisome anemia. No significant electrolyte abnormality, kidney failure, hepatitis or pancreatitis. There is no coagulopathy. EKG shows a sinus rhythm with chronic change, no acute ischemic findings. Cardiac enzyme testing times one is not consistent with acute cardiac injury. Chest x-ray does not show pneumonia, mediastinal widening or CHF. There was no free air. Abdominal and pelvis CT does show a proctocolitis , no bowel obstruction. Patient has had several bowel movements while here in the ER. Her stool was ordered for culture and for C. difficile testing. She has received IV saline, the fluid has improved her heart rate. The patient presents with a decreased by mouth intake, dehydration, diarrhea. She has proctocolitis by CT. Further care and hydration in the hospital is warranted. I do have concerns for C. difficile given her recent heavy antibiotic use. I spoke to the patient and case management. The on-call hospitalist has been consulted. Medication Reconcilliation Current Medication List: was personally reviewed by me Blood Pressure Screening Patient's blood pressure: Elevated blood pressure Blood pressure disposition: Elevated BP felt to be situational, Did not require urgent referral Consults Time Called: [id number] Consulting Physician: JONY Hernandez Returned Call: 1500 I discussed the patients case with JONY Hernandez. He is going to evaluate the patient for further treatment. Impression Primary Impression: Dehydration Additional Impressions: Proctocolitis Tachycardia Diarrhea Scribe Attestation The scribe's documentation has been prepared under my direction and personally reviewed by me in its entirety. I confirm that the note above accurately reflects all work, treatment, procedures, and medical decision making performed by me. Departure Information Dispostion Being Evaluated By Hospitalist Referrals Effie Ngo (PCP) Problem Qualifiers
[2017-08-15] MEDS ORDERED: OPTIRAY 320 IV PRN (12:15)
--- NOTE | 2017-08-15 12:42 | DIAGNOSTIC IMAGING REPORT ---
CHEST ONE VIEW PORTABLE CLINICAL HISTORY: 72 years-old Female presenting with CHEST PAIN. TECHNIQUE: Portable upright AP view of the chest was obtained. COMPARISON: 06/17/2017. FINDINGS: The tip of the left subclavian Mediport is not visualized, likely projecting over the extended thoracolumbar hardware. Atherosclerosis of aortic arch. Cardiac silhouette normal in size. Mild hyperinflation, unchanged. No focal infiltrate. No large effusion or pneumothorax. The posterior left eighth rib is not apparent consistent with post treatment changes. Cholecystectomy clips. Anastomotic suture lines project over the epigastrium. A vascular stent device is partially visualized in the region of the abdominal aorta. IMPRESSION: 1. Hyperinflation. No focal infiltrate. No convincing evidence of acute cardiopulmonary disease. Electronically signed by: Ho Shafer M.D. 08/15/2017 12:41 PM Dictated Date/Time: 08/15/2017 12:38 PM
[2017-08-15] MEDS ORDERED: ALUMINUM/MAGNESIUM SUSP 30 ML UDC ONE (12:59)
[2017-08-15] MEDS ORDERED: LIDOCAINE HCL 2% VISC SOLN 20 ML UDC ONE (13:00)
[2017-08-15 13:12] LABS: HEMATOCRIT 39.9 % (37-47); MEAN CELL VOLUME 93.9 fL (80-100); MEAN CORPUSCULAR HEMOGLOBIN 30.6 pg (25-34); MEAN CORPUSCULAR HGB CONC 32.6 g/dl (32-36); MEAN PLATELET VOLUME 10.4 fL (7.4-10.4); PLATELET COUNT 387 K/uL (130-400); RED BLOOD COUNT 4.25 M/uL (4.2-5.4); WHITE BLOOD COUNT 9.49 K/uL (4.8-10.8)
[2017-08-15 13:19] LABS: PARTIAL THROMBOPLASTIN RATIO 1.1; PROTHROMBIN TIME (PATIENT) 10.7 SECONDS (9.0-12.0)
[2017-08-15 13:31] LABS: ALT/SGPT 21 U/L (12-78); AST/SGOT 22 U/L (15-37); BLOOD UREA NITROGEN 14 mg/dl (7-18); BUN/CREATININE RATIO 71.6 (10-20); CALCIUM 8.6 mg/dl (8.5-10.1); CARBON DIOXIDE 25 mmol/L (21-32); CHLORIDE 112 mmol/L (98-107); CREATININE 0.19 mg/dl (0.60-1.20); GLUCOSE 90 mg/dl (70-99); MAGNESIUM 1.9 mg/dl (1.8-2.4); POTASSIUM 3.6 mmol/L (3.5-5.1); SODIUM 146 mmol/L (136-145)
[2017-08-15 13:36] LABS: ALB/GLOB RATIO 0.6 (0.9-2); ALKALINE PHOSPHATASE 122 U/L (45-117)
[2017-08-15] MEDS ORDERED: SODIUM CHLORIDE 0.9% 500ML 500 ML IV STA (13:40)
--- NOTE | 2017-08-15 14:48 | DIAGNOSTIC IMAGING REPORT ---
ABD/PELVIS IV CONTRAST ONLY HISTORY: 72 years-old Female ABD PAIN, POSS OBSTRUCTION, IV CONTRAST ONLY acute generalized abdominal pain. COMPARISON: CT pelvis 07/22/2017, CT abdomen and pelvis 11/04/2015 CT chest 05/09/2017 and 01/26/2015 TECHNIQUE: Multiple axial CT images of the abdomen and pelvis were obtained following the intravenous administration of 94 mL Optiray 320. A dose lowering technique was used consistent with the principals of PRO. FINDINGS: Study is limited secondary to prominent streak artifact from spine fusion hardware. There is a spiculated 9 x 6 mm noncalcified pulmonary nodule within the right lower lobe which appears unchanged from CT chest of 05/09/2017, however is new from 01/26/2015, again appearing suspicious. Linear subsegmental consolidative opacities of the lung bases bilaterally suggest areas of scarring and atelectasis. No pneumoperitoneum identified. Pectus excavatum deformity noted with the imaged inferior cardiac chambers mildly enlarged. Low attenuating circumscribed 6 mm lesion of the lateral left hepatic lobe is nonspecific, however is unchanged suggesting benign etiology such as a cyst. Prior cholecystectomy with unchanged mild intrahepatic and extrahepatic biliary ductal dilation, likely secondary to postcholecystectomy state. Spleen is unremarkable. There is a low attenuating 4 x 4 mm lesion noted involving the mid pancreatic body anteriorly which is unchanged dating back to at least 11/04/2015 suggesting benign etiology such as focal side branch dilation from chronic pancreatitis or side branch IPMN. Moderate to severe background pancreatic atrophy noted. Large 5.4 cm mildly complex cyst of the inferior pole left kidney redemonstrated with calcified linear septation again noted along the inferior margin. Nonobstructing calculi are seen within the interpolar left kidney measuring up to 6 mm. No hydronephrosis identified. There is marked wall thickening with bladder wall trabeculations and multiple bladder diverticula redemonstrated. Uterus appears to be surgically absent. There is extensive atherosclerosis of the abdominal aorta. No bulky retroperitoneal adenopathy identified. Postsurgical changes are seen involving the stomach and jejunum suggesting prior Jakub-en-Y gastric bypass. No bowel obstruction identified. Nonspecific 2.0 cm calcified structure is noted posterior to the bladder. There is wall thickening and mucosal hyperemia noted involving the rectum and sigmoid colon and to lesser extent the descending colon. The appendix is not definitively seen. No secondary signs of acute appendicitis. Prequel calcifications involve the right breast. Mild diffuse body wall edema. The bones are severely demineralized. Right hip arthroplasty noted. Cannulated screws are seen within the left hip. There is convex left curvature of the lumbar spine. No acute bony abnormality identified. Extensive posterior tatiana and screw fusion of the thoracolumbar spine redemonstrated. Mild skin ulceration of the sacral region redemonstrated without drainable fluid collection. IMPRESSION: 1. Suggested proctocolitis without evidence of bowel obstruction or perforation. 2. Marked trabeculation, wall thickening and diverticula of the urinary bladder redemonstrated suggesting sequela of chronic bladder outlet obstruction. 3. Skin ulceration of the sacral region redemonstrated without drainable fluid collection. 4. Spiculated partially imaged noncalcified pulmonary nodule of the right lower lobe measuring 9 mm is redemonstrated, again appearing suspicious. Follow-up chest CT recommended to exclude progressive abnormality. 5. Left nephrolithiasis without hydronephrosis. 6. Additional incidental findings as above. The above report was generated using voice recognition software. It may contain grammatical, syntax or spelling errors. Electronically signed by: Dustin Johnson M.D. 08/15/2017 2:47 PM Dictated Date/Time: 08/15/2017 2:30 PM
[2017-08-15] MEDS ORDERED: LORAZEPAM 0.5 MG TAB PO PRN (16:30)
[2017-08-15] MEDS ORDERED: ALUMINUM/MAGNESIUM/SIMETH (MAALOX MAX) 30 ML UDC PO PRN (16:30)
[2017-08-15] MEDS ORDERED: BISACODYL 10 MG SUPP PR PRN (16:30)
[2017-08-15] MEDS ORDERED: ONDANSETRON INJ 2 MG/ML 2 ML VIAL IV PRN (16:30)
[2017-08-15] MEDS ORDERED: MAGNESIUM HYDROXIDE SUSP 30 ML UDC PO PRN ×2 (16:30)
[2017-08-15] MEDS ORDERED: MAGN400C3 PO (16:35)
--- NOTE | 2017-08-15 16:58 | History and Physical ---
History & Physical Date & Time of Service: Aug 15, 2017 at 16:41 Chief Complaint: Abdominal Pain Primary Care Physician: George Montoya M.D. History of Present Illness Source: patient, clinic records, hospital records, senior living ([facility]) This is a 72 y/o female with a history of HTN, depression, anxiety, multiple sclerosis, PUD and migraines who presented to the ED on 08/15 with chest pain, diarrhea, decreased appetite and weight loss. The patient complained of a 10/ 10 pain in the middle of her chest that is sometimes achy, sometimes sharp and is brought on by swallowing. The pain sometimes radiates down to her epigastrium. She states that the pain is worse when attempting to swallow solid foods and is less severe when swallowing liquids. She has a history of PUD and GERD. The patient as a result has not been eating much lately and has been losing weight. She feels generally weak and fatigued. She also complains of diarrhea but denies any hematochezia or melena. She has had C. diff in the past and is a resident of [facility]. The patient also complains of increased urinary frequency but denies dysuria or hematuria. The patient denies fevers, chills, sweats, palpitations, claudication, cough, wheezing, shortness of breath, nausea, vomiting, abdominal pain, dysuria, hematuria, urinary retention , paralysis, motor weakness, numbness and tingling. Past Medical/Surgical History Medical Problems: (1) Benign hypertension Status: Chronic (2) Chronic peptic ulcer Status: Chronic (3) Hysterectomy Status: Resolved (4) Migraine Status: Chronic (5) Multiple sclerosis Status: Chronic (6) Multiple sclerosis Status: Chronic (7) Sepsis Status: Resolved (8) STAPHYLOCOCCAL SEPTICEMIA, NEC Status: Resolved Depression Anxiety Surgical Problems: (1) S/P partial gastrectomy Status: Chronic Family History Breast cancer Diabetes mellitus FH: cholecystectomy FHx: heart disease Hypertension Social History Smoking Status: Former Smoker (remote smoking history) Smokeless Tobacco Use: No Alcohol Use: none Drug Use: none Housing status: senior living Occupational Status: retired Immunizations History of Influenza Vaccine: Yes Influenza Vaccine Date: Sep 09, 2013 History of Tetanus Vaccine?: Yes Tetanus Immunization Date: Oct 12, 2002 History of Pneumococcal: UNSURE Pneumococcal Date: Sep 03, 2011 History of Hepatitis B Vaccine: No 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 Allergies Coded Allergies: Morphine (Verified Adverse Reaction, Intermediate, " MAKES ME MEAN" - CONFUSION, 08/15/17) Home Medications Scheduled Alendronate Sodium (Alendronate Sodium), 70 MG PO WK Amitriptyline Hcl (Elavil), 75 MG PO HS Calcium Carbonate (Tums), 500 MG PO Q6H Cholecalciferol (Vitamin D3), 4,000 INTER.UNIT PO TID Clotrimazole W/ Betamethasone (Lotrisone), 1 APPLN TOP BID Ferrous Sulfate (Ferrous Sulfate), 325 MG PO BID Gabapentin (Gabapentin), 800 MG PO TID Magnesium Oxide (mg Supplement (Magnesium Oxide), 400 MG PO DAILY Midodrine Hcl (Midodrine Hcl), 5 MG PO TID Mirtazapine (Mirtazapine), 45 MG PO HS Multiple Vitamin (Multivitamin), 1 TAB PO DAILY Natalizumab (Tysabri), 1 DOSE IV MONTHLY Pantoprazole (Pantoprazole Sodium), 40 MG PO BID Potassium Chloride (Potassium Chloride Er), 10 MEQ PO QAM Probiotic Product (Probiotic), 1 CAP PO BID Sucralfate (Carafate), 10 ML PO TIDM Topiramate (Topiramate), 25 MG PO BID [Liquid Protein], 1 DOSE PO BID Scheduled PRN Acetaminophen (Tylenol), 1 SUPP SC Q6H PRN for MILD PAIN OR FEVER Acetaminophen Tab (Tylenol), 325 MG PO DAILY PRN for Pain or Fever Bisacodyl (Dulcolax), 1 SUPP SC Q4DAYS PRN for Constipation Dextrose (Diabetic Use) (Insta-Glucose), 1 DOSE PO UD PRN for HYPOGLYCEMIA PROTOCOL Glucagon (Glucagon Emergency Kit), 1 MG IM UD PRN for HYPOGLYCEMIA PROTOCOL Lorazepam (Ativan), 0.5 MG PO TID PRN for Anxiety Magnesium Hydroxide (Milk Of Magnesia), 30 ML PO UD PRN for Constipation Ondansetron Hcl (Zofran), 4 MG PO Q8H PRN for Nausea Sodium Phosphate/Biphosphate (Fleet Enema), 1 EA SC DAILY PRN for Constipation Sumatriptan Succinate (Imitrex), 100 MG PO UD PRN for Migraine Tramadol Hcl (Ultram), 50 MG PO BID PRN for Pain Review of Systems Constitutional: + weakness, + fatigue, No fever, No chills, No sweats Eyes: No worsening of vision, No eye pain, No diplopia ENT: + trouble swallowing (chest pain w/swallowing, especially solids), No hearing loss, No sore throat Respiratory: No cough, No wheezing, No shortness of breath Cardiovascular: + chest pain, No claudication, No palpitations Abdomen: + diarrhea, No pain, No nausea, No vomiting, No GI bleeding Musculoskeletal: No joint pain, No muscle pain, No calf pain Genitourinary - Female: + urinary frequency, No dysuria, No urinary retention, No hematuria Neurologic: No paralysis, No weakness, No numbness/tingling Integumentary: No rash, No itch, No color change Physical Exam Vital Signs Date Time Temp Pulse Resp B/P (MAP) Pulse Ox O2 Delivery O2 Flow Rate FiO2 08/15/17 16:23 100 08/15/17 16:22 100 08/15/17 16:09 102 157/95 08/15/17 14:01 89 14 08/15/17 13:31 91 22 100 08/15/17 13:08 106 08/15/17 13:03 142/94 08/15/17 12:50 Room Air 08/15/17 10:41 36.5 112 18 126/84 99 Room Air General appearance: +Very thin. No apparent distress Head: Normocephalic, atraumatic Eyes: Normal inspection, PERRL, EOMI ENT: +Dry oral mucosa. Normal ENT inspection, hearing grossly normal, pharynx normal Neck: Supple, no JVD, trachea midline Respiratory/Chest: +Port in left chest. Center of chest TTP. Lungs clear to auscultation, normal breath sounds, no respiratory distress Cardiovascular: Regular rate & rhythm, no gallop, no murmur Abdomen/GI: +Mild diffuse tenderness. Normal bowel sounds, soft Extremities/Musculoskeletal: +2-3+ pitting edema. Normal inspection, no calf tenderness Neurological/Psych: Alert, normal mood/affect, oriented x 3 Skin: Normal color, warm/dry, no rash Diagnostics Laboratory Results Results Past 24 Hours Test 08/15/17 12:55 Range/Units White Blood Count 9.49 4.8-10.8 K/uL Red Blood Count 4.25 4.2-5.4 M/uL Hemoglobin 13.0 12.0-16.0 g/dL Hematocrit 39.9 37-47 % Mean Corpuscular Volume 93.9 80-100 fL Mean Corpuscular Hemoglobin 30.6 25-34 pg Mean Corpuscular Hemoglobin Concent 32.6 32-36 g/dl RDW Standard Deviation 53.5 36.4-46.3 fL RDW Coefficient of Variation 15.5 11.5-14.5 % Platelet Count 387 130-400 K/uL Mean Platelet Volume 10.4 7.4-10.4 fL Prothrombin Time 10.7 9.0-12.0 SECONDS Prothromb Time International Ratio 1.0 0.9-1.1 Activated Partial Thromboplast Time 29.1 21.0-31.0 SECONDS Partial Thromboplastin Ratio 1.1 Sodium Level 146 136-145 mmol/L Potassium Level 3.6 3.5-5.1 mmol/L Chloride Level 112 98-107 mmol/L Carbon Dioxide Level 25 21-32 mmol/L Anion Gap 9.0 3-11 mmol/L Blood Urea Nitrogen 14 7-18 mg/dl Creatinine 0.19 0.60-1.20 mg/dl Est Creatinine Clear Calc Drug Dose 178.8 ml/min Estimated GFR () > 150.0 Estimated GFR (Non- 134.8 BUN/Creatinine Ratio 71.6 10-20 Random Glucose 90 70-99 mg/dl Calcium Level 8.6 8.5-10.1 mg/dl Magnesium Level 1.9 1.8-2.4 mg/dl Total Bilirubin 0.2 0.2-1 mg/dl Aspartate Amino Transf (AST/SGOT) 22 15-37 U/L Alanine Aminotransferase (ALT/SGPT) 21 12-78 U/L Alkaline Phosphatase 122 45-117 U/L Troponin I 0.030 0-0.045 ng/ml Total Protein 4.9 6.4-8.2 gm/dl Albumin 1.9 3.4-5.0 gm/dl Globulin 3.0 2.5-4.0 gm/dl Albumin/Globulin Ratio 0.6 0.9-2 Lipase 56 73-393 U/L Diagnostic Radiology Reviewed the following studies and agree with interpretation as follows: Patient Name: REAGAN CORMIER Unit Number: [id number] Dictated: 08/15/171237 Transcribed: 08/15/171237 PBS Printed Date/Time: [~ rep prt dt]/[~ rep prt tm] [~ rep ct labl] - [~ rep ct ivnm] [facility] [place] [address] Dictated: 08/15/17 123 Transcribed: 08/15/171237 PBS Printed Date/Time: [~ rep prt dt]/[~ rep prt tm] [~ rep ct labl] - [~ rep ct ivnm] Patient: REAGAN CORMIER Address1: [facility] [address] [place] Rec: [id number] Address2: [place] Acct ID: [id number] [facility] Zip: [place] [address] Date: 1945 Sex: F Room/Bed: Ref Phy: Effie Ngo SC: HARSH Att Phy: Report #: [id number] Love Phy: George Montoya M.D. Test: CXR1P Admit Phy: Scientific Investigator: BELEN Interpreting Phy: Ho Shafer MD Diagnosis: ABDOMINAL PAIN Ordering Phy: Jason Byers M.D. Service Date: 08/15/17 Admit Date: 08/15/17 MNE: [id number] CONF: DICTATED BY: Ho Shafer MD]] CC: Jason Byers M.D. [place], Nittany Hester, Christopher E., M.D. Endcc: [~ rep ct add3]] CHEST ONE VIEW PORTABLE CLINICAL HISTORY: 72 years-old Female presenting with CHEST PAIN. TECHNIQUE: Portable upright AP view of the chest was obtained. COMPARISON: 06/17/2017. FINDINGS: The tip of the left subclavian Mediport is not visualized, likely projecting over the extended thoracolumbar hardware. Atherosclerosis of aortic arch. Cardiac silhouette normal in size. Mild hyperinflation, unchanged. No focal infiltrate. No large effusion or pneumothorax. The posterior left eighth rib is not apparent consistent with post treatment changes. Cholecystectomy clips. Anastomotic suture lines project over the epigastrium. A vascular stent device is partially visualized in the region of the abdominal aorta. IMPRESSION: 1. Hyperinflation. No focal infiltrate. No convincing evidence of acute cardiopulmonary disease. Electronically signed by: Ho Shafer M.D. 08/15/2017 12:41 PM Dictated Date/Time: 08/15/2017 12:38 PM The status of this report is Signed. Draft = Not yet reviewed or approved by Radiologist. Signed = Reviewed and approved by Radiologist. <AttendingPhy></AttendingPhy> <FamilyPhy>Effie Ngo</FamilyPhy> < PrimaryPhy>George Montoya M.D.</PrimaryPhy> <UnitNumber>[id number]</ UnitNumber> <VisitNumber>[id number]</VisitNumber> <PatientName>REAGAN CORMIER</ PatientName> <DateOfBirth>1945</DateOfBirth> <Location>C.CATHY</Location> < ServiceDate>08/15/17</ServiceDate> <MNE>ESINDI</MNE> <OrderingPhy>Jason Byers M.D.</OrderingPhy> <OrderingPhyMNE>f rep ord dr garza</OrderingPhyMNE> < DictatingPhyMNE>f rep dict dr garza</DictatingPhyMNE> <CCListMNE>f rep ct mne</ CCListMNE> <AdmittingPhyMNE>f pt admit dr garza</AdmittingPhyMNE> <AttendingPhyMNE >f pt attend dr garza</AttendingPhyMNE> <ConsultingPhyMNE>f pt consult dr garza</ConsultingPhyMNE> <FamilyPhyMNE>f pt fam dr garza</FamilyPhyMNE> <OtherPhyMNE>f pt other dr garza</OtherPhyMNE> < PrimaryPhyMNE>f pt prim care dr garza</PrimaryPhyMNE> <ReferringPhyMNE>f pt referring dr garza</ReferringPhyMNE> Patient Name: REAGAN CORMIER Unit Number: [id number] Dictated: 08/15/17 1430 Transcribed: 08/15/17 143 JR Printed Date/Time: [~ rep prt dt]/[~ rep prt tm] [~ rep ct labl] - [~ rep ct ivnm] [facility] [place] [address] Dictated: 08/15/171429 Transcribed: 08/15/171429 JRB Printed Date/Time: [~ rep prt dt]/[~ rep prt tm] [~ rep ct labl] - [~ rep ct ivnm] Patient: REAGAN CORMIER [facility] Rec: [id number] Address2: [place] Acct ID: [id number] [facility] Zip: [place] [address] Date: 1945 Sex: F Room/Bed: Ref Phy: Effie Ngo SC: HARSH Att Phy: Report #: [id number] Love Phy: George Montoya M.D. Test: APIV Admit Phy: Scientific Investigator: SIMONE Interpreting Phy: Wilman Johnson D.O. Diagnosis: ABDOMINAL PAIN Ordering Phy: Jason Byers M.D. Service Date: 08/15/17 Admit Date: 08/15/17 MNE: PWRSCRIBE CONF: DICTATED BY: Wilman Johnson D.O.]] CC: Jason Byers M.D. [place], Nittany Hester, Christopher E., M.D. Endcc: [~ rep ct add3]] ABD/PELVIS IV CONTRAST ONLY HISTORY: 72 years-old Female ABD PAIN, POSS OBSTRUCTION, IV CONTRAST ONLY acute generalized abdominal pain. COMPARISON: CT pelvis 07/22/2017, CT abdomen and pelvis 11/04/2015 CT chest 05/09/2017 and 01/26/2015 TECHNIQUE: Multiple axial CT images of the abdomen and pelvis were obtained following the intravenous administration of 94 mL Optiray 320. A dose lowering technique was used consistent with the principals of PRO. FINDINGS: Study is limited secondary to prominent streak artifact from spine fusion hardware. There is a spiculated 9 x 6 mm noncalcified pulmonary nodule within the right lower lobe which appears unchanged from CT chest of 05/09/2017, however is new from 01/26/2015, again appearing suspicious. Linear subsegmental consolidative opacities of the lung bases bilaterally suggest areas of scarring and atelectasis. No pneumoperitoneum identified. Pectus excavatum deformity noted with the imaged inferior cardiac chambers mildly enlarged. Low attenuating circumscribed 6 mm lesion of the lateral left hepatic lobe is nonspecific, however is unchanged suggesting benign etiology such as a cyst. Prior cholecystectomy with unchanged mild intrahepatic and extrahepatic biliary ductal dilation, likely secondary to postcholecystectomy state. Spleen is unremarkable. There is a low attenuating 4 x 4 mm lesion noted involving the mid pancreatic body anteriorly which is unchanged dating back to at least 11/04/2015 suggesting benign etiology such as focal side branch dilation from chronic pancreatitis or side branch IPMN. Moderate to severe background pancreatic atrophy noted. Large 5.4 cm mildly complex cyst of the inferior pole left kidney redemonstrated with calcified linear septation again noted along the inferior margin. Nonobstructing calculi are seen within the interpolar left kidney measuring up to 6 mm. No hydronephrosis identified. There is marked wall thickening with bladder wall trabeculations and multiple bladder diverticula redemonstrated. Uterus appears to be surgically absent. There is extensive atherosclerosis of the abdominal aorta. No bulky retroperitoneal adenopathy identified. Postsurgical changes are seen involving the stomach and jejunum suggesting prior Jakub-en-Y gastric bypass. No bowel obstruction identified. Nonspecific 2.0 cm calcified structure is noted posterior to the bladder. There is wall thickening and mucosal hyperemia noted involving the rectum and sigmoid colon and to lesser extent the descending colon. The appendix is not definitively seen. No secondary signs of acute appendicitis. Prequel calcifications involve the right breast. Mild diffuse body wall edema. The bones are severely demineralized. Right hip arthroplasty noted. Cannulated screws are seen within the left hip. There is convex left curvature of the lumbar spine. No acute bony abnormality identified. Extensive posterior tatiana and screw fusion of the thoracolumbar spine redemonstrated. Mild skin ulceration of the sacral region redemonstrated without drainable fluid collection. IMPRESSION: 1. Suggested proctocolitis without evidence of bowel obstruction or perforation. 2. Marked trabeculation, wall thickening and diverticula of the urinary bladder redemonstrated suggesting sequela of chronic bladder outlet obstruction. 3. Skin ulceration of the sacral region redemonstrated without drainable fluid collection. 4. Spiculated partially imaged noncalcified pulmonary nodule of the right lower lobe measuring 9 mm is redemonstrated, again appearing suspicious. Follow-up chest CT recommended to exclude progressive abnormality. 5. Left nephrolithiasis without hydronephrosis. 6. Additional incidental findings as above. The above report was generated using voice recognition software. It may contain grammatical, syntax or spelling errors. Electronically signed by: Dustin Johnson M.D. 08/15/2017 2:47 PM Dictated Date/Time: 08/15/2017 2:30 PM The status of this report is Signed. Draft = Not yet reviewed or approved by Radiologist. Signed = Reviewed and approved by Radiologist. <AttendingPhy></AttendingPhy> <FamilyPhy>Effie Ngo</FamilyPhy> < PrimaryPhy>George Montoya M.D.</PrimaryPhy> <UnitNumber>[id number]</ UnitNumber> <VisitNumber>[id number]</VisitNumber> <PatientName>REAGAN CORMIER</ PatientName> <DateOfBirth>1945</DateOfBirth> <Location>C.CATHY</Location> < ServiceDate>08/15/17</ServiceDate> <MNE>ESINDI</MNE> <OrderingPhy>Jason Byers M.D.</OrderingPhy> <OrderingPhyMNE>f rep ord dr garza</OrderingPhyMNE> < DictatingPhyMNE>f rep dict dr garza</DictatingPhyMNE> <CCListMNE>f rep ct mnkiel</ CCListMNE> <AdmittingPhyMNE>f pt admit dr garza</AdmittingPhyMNE> <AttendingPhyMNE >f pt attend dr garza</AttendingPhyMNE> <ConsultingPhyMNE>f pt consult dr garza</ConsultingPhyMNE> <FamilyPhyMNE>f pt fam dr garza</FamilyPhyMNE> <OtherPhyMNE>f pt other dr garza</OtherPhyMNE> < PrimaryPhyMNE>f pt prim care dr garza</PrimaryPhyMNE> <ReferringPhyMNE>f pt referring dr garza</ReferringPhyMNE> EKG Reviewed EKG and agree with interpretation as follows: 103 bpm, sinus tachycardia with occasional PVC. T wave inversions more evident in inferior leads compared to previous EKG on 07/24 but less evident in lateral leads Impression Assessment and Plan 72 y/o female with a history of HTN, depression, anxiety, multiple sclerosis, PUD and migraines who presented to the ED on 08/15 with chest pain, diarrhea, decreased appetite and weight loss. Pt afebrile and tachycardic on arrival, but tachycardia has since improved. Vital signs otherwise stable. EKG no acute ischemic changes. Troponin negative. Abdomen/pelvis CT shows proctocolitis. WBC WNL. Protein and albumin low, labs otherwise unremarkable. Proctocolitis--pt denies recent abx use but has had C. diff in the past, lives in senior living -Admit to med/surg -C. diff and stool culture pending -NSS + 40 mEq KCl at 75 cc/hr Chest pain--improved with GI cocktail in ED -Seems more likely esophageal/GI related as occurs with swallowing food -Pt has never had an EGD, recommend outpt follow up -Repeat trop at 1900 although cardiac etiology seems unlikely H/o orthostatic hypotension--stable -Continue midodrine 5 mg PO TID Depression and anxiety -Continue amitriptyline 75 mg PO hs, Remeron 45 mg PO hs and Ativan 0.5 mg PO TID prn anxiety Multiple sclerosis -Continue gabapentin 800 mg PO TID -Pt takes Tysabri 300 mg IV q4 weeks PUD/GERD -Continue Protonix 40 mg PO BID and Carafate 1 gm PO TIDM Migraines -Continue Topamax 25 mg PO BID, Imitrex and tramadol prn Sacral pressure ulcer POA -Consult wound care nurse DVT prophylaxis -Heparin 5000 units SC q12h -NOBLE Rosenberg Code Status -Level I, FULL RESUSCITATION STATUS Resident Physician Supervision Note: I was present with RAAD Chao during the history and exam. I discussed the case with the PA, pt and family and agree with the findings and plan as documented in the note. Any exceptions or clarifications are listed here: Unfortunate 72 y/o F w/Hx advanced MS and recurrent resistant UTIs. Pt presents with primary complaint of dysphagia and diarrhea - she has CP whenever she swallows which she describes as severe and resultant decreased PO intake. This has lead to a 5lb weight loss over the past week which she can ill afford. OE AAO x 3 S1,2 R CTAB NT, ND + Edema Chronic diffuse weakness P: Assigned to medical floor R/O C-difff due to frequent Abx use GI consult for dysphagia Documented By: Akin Sheridan Level of Care Med/Surg Resuscitation Status FULL RESUSCITATION VTE Prophylaxis VTE Risk Assessment Done? Y/N: Yes Risk Level: Moderate Given or contraindicated: Unfractionated heparin SQ, T.E.D. Stockings, SCD's
[2017-08-15] MEDS ORDERED: POLYETHYLENE (MIRALAX) 17 GM PACK PO PRN (17:15)
[2017-08-15 18:44] VITALS: BP 149/95; PULSE 102; TEMP 36.4; O2SAT 96
[2017-08-15 19:00] VITALS: BP 149/95; PULSE 102; TEMP 36.4; O2SAT 96; Ht 160 cm; Wt 41.0 kg
[2017-08-15] MEDS ORDERED: POTASSIUM CHLORIDE INJ 40 MEQ in SODIUM CHLORIDE 0.9% 1000ML 1,000 ML IV SCH (19:00)
[2017-08-15] MEDS: TOPIRAMATE 25 MG TAB PO SCH (21:00)
[2017-08-15] MEDS: MIRTAZAPINE TAB 15 MG TAB PO SCH (21:01)
[2017-08-15] MEDS: PANTOprazole SOD 40 MG TAB PO SCH (21:01)
[2017-08-15] MEDS: AMITRIPTYLINE HCL 25 MG TAB PO SCH (21:01)
[2017-08-15] MEDS: GABAPENTIN 800 MG TAB PO SCH (21:02)
[2017-08-15] MEDS: CLOTRIMAZOLE/BETAMETHASONE CR 15 GM TUBE EXT SCH (21:03)
[2017-08-15] MEDS: HEPARIN SOD 5000 UNIT/0.5 ML CARP SQ SCH (21:11)
[2017-08-15] MEDS: CHOLECALCIFEROL 1000 INTER.UNIT TAB PO SCH (22:08)
[2017-08-15 23:13] VITALS: BP 151/85; PULSE 108; TEMP 36.7; O2SAT 98
[2017-08-15] MEDS ORDERED: INFLUENZA VACCINE HIGH DOSE 65+ 0.5 ML SYR IM. ONE (23:15)
[2017-08-15] MEDS ORDERED: INFLUENZA ADMINISTRATION CHARGE ONE (23:15)
[2017-08-16] MEDS ORDERED: NURSING VERBAL MED ORDER ONE ×3 (01:30→16:00)
[2017-08-16] MEDS: TRAMADOL HCL 50 MG TAB PO PRN (05:22)
[2017-08-16 05:42] LABS: URINE APPEARANCE CLOUDY (CLEAR); URINE BILIRUBIN NEG (NEG); URINE COLOR YELLOW; URINE EPITHELIAL CELL AUTO 0-5 /lpf (0-5); URINE NITRITE NEG (NEG); URINE SPECIFIC GRAVITY 1.025 (1.000-1.030); UROBILINOGEN NEG (NEG); ZZUR CULT IF INDIC CLEAN CATCH YES
[2017-08-16 05:45] LABS: MANUAL MICROSCOPIC REQUIRED? NO; REVIEW REQ? NO
[2017-08-16 06:06] LABS: HEMATOCRIT 39.4 % (37-47); MEAN CELL VOLUME 93.1 fL (80-100); MEAN CORPUSCULAR HEMOGLOBIN 31.2 pg (25-34); MEAN CORPUSCULAR HGB CONC 33.5 g/dl (32-36); MEAN PLATELET VOLUME 10.4 fL (7.4-10.4); PLATELET COUNT 366 K/uL (130-400); RED BLOOD COUNT 4.23 M/uL (4.2-5.4); WHITE BLOOD COUNT 8.24 K/uL (4.8-10.8)
[2017-08-16 06:42] LABS: BUN/CREATININE RATIO 41.8 (10-20); CALCIUM 8.1 mg/dl (8.5-10.1); CARBON DIOXIDE 23 mmol/L (21-32); CHLORIDE 114 mmol/L (98-107); CREATININE 0.21 mg/dl (0.60-1.20); GLUCOSE 67 mg/dl (70-99); POTASSIUM 3.4 mmol/L (3.5-5.1); SODIUM 145 mmol/L (136-145)
[2017-08-16 06:59] LABS: BLOOD UREA NITROGEN 9 mg/dl (7-18)
[2017-08-16 07:15] VITALS: BP 127/77; PULSE 110; TEMP 36.6; O2SAT 98
[2017-08-16] MEDS ORDERED: SUCRALFATE 1 GM/10 ML UDC PO SCH (08:00)
[2017-08-16] MEDS ORDERED: POTASSIUM CHLORIDE 10 MEQ TABCR PO SCH (08:00)
--- NOTE | 2017-08-16 08:50 | Clinical Documentation Query ---
CLINICAL DOCUMENTATION QUERY 72 year old female who presents to the Emergency Room with complaints dysphagia and chest pressure. H&P states patient has a sacral pressure ulcer w/o staging. Depending on the stage of pressure ulcer SOI can be greatly impacted. Query #1/2 In your clinical opinion is this patient being managed for: ( ) Pressure ulcer of sacral region ( ) Stage I ( ) Stage II ( x ) Stage III ( ) Stage IV ( ) Not Agree ( ) Other explanation of clinical findings (Please Explain) ( ) Unable to determine (Please Define) ( ) Need to Discuss The medical record reflects the following clinical findings, treatment, and risk factors. Clinical Indicators: As above. Treatment: WOCN consult, Q2hr repositioning, Risk Factors: Age, recent acute illnesses, and MS Query #2/2 In your clinical opinion is this patient being managed for: ( x ) Severe Protein Calorie Malnutrition in setting of recent acute illnesses ( ) Not Agree ( ) Other explanation of clinical findings (Please Explain) ( ) Unable to determine (Please Define) ( ) Need to Discuss The medical record reflects the following clinical findings, treatment, and risk factors. Clinical Indicators: H&P states, "Protein and albumin low. This has lead to a 5lb weight loss over the past week which she can ill afford." BMI 16, Wt. 41.1 this admission. Last discharge 07/26/17 she weighed 43.9. This is a 6% loss in BW. Treatment: GI consult, AHA diet, RD referral Risk Factors: Age, recent acute illness, MS, & Dysphagia. Please clarify and document your clinical opinion in the progress notes and discharge summary. Terms such as "probable", "suspected", "likely", "questionable", "possible", or "still to be ruled out" are acceptable. IF IN AGREEMENT, YOU MUST DOCUMENT ABOVE DIAGNOSTIC STATEMENT IN DAILY PROGRESS NOTES AND DISCHARGE SUMMARY. This document is not part of the patient's record. Thank You, Tim Marshall RN [phone]
[2017-08-16] MEDS: CHOLECALCIFEROL 1000 INTER.UNIT TAB PO SCH ×3 (09:15→20:07)
[2017-08-16] MEDS: BOOST PLUS VANILLA PO SCH ×6 (09:15→17:38)
[2017-08-16] MEDS: CLOTRIMAZOLE/BETAMETHASONE CR 15 GM TUBE EXT SCH ×2 (09:17→20:00)
[2017-08-16] MEDS: MULTIVITAMIN TAB PO SCH (09:19)
[2017-08-16] MEDS: MIDODRINE 2.5 MG TAB PO SCH ×3 (09:20→17:31)
[2017-08-16] MEDS: PANTOprazole SOD 40 MG TAB PO SCH (09:20)
[2017-08-16] MEDS: GABAPENTIN 800 MG TAB PO SCH ×3 (09:22→20:07)
[2017-08-16] MEDS: MAGNESIUM OXIDE 400 MG TAB PO SCH (09:22)
[2017-08-16] MEDS: HEPARIN SOD 5000 UNIT/0.5 ML CARP SQ SCH ×2 (09:35→21:49)
[2017-08-16] MEDS: FERROUS SULFATE 325 MG TAB PO SCH ×2 (09:36→17:31)
[2017-08-16] MEDS: TOPIRAMATE 25 MG TAB PO SCH ×2 (09:38→20:07)
[2017-08-16] MEDS: D5W AND 1/2NSS + 20MEQ KCL 1,000 ML IV SCH (09:38)
[2017-08-16] MEDS: POTASSIUM CHLORIDE 20 MEQ TABCR PO SCH ×2 (09:39→20:08)
[2017-08-16] MEDS ORDERED: FLUCONAZOLE 50 MG TAB PO ONE (10:45)
[2017-08-16] MEDS: SUCRALFATE 1 GM/10 ML UDC PO SCH ×3 (12:05→22:00)
[2017-08-16] MEDS: SUMATRIPTAN SUCC TAB 100 MG TAB PO PRN ×2 (12:05→20:04)
[2017-08-16] MEDS: ACETAMINOPHEN 325 MG TAB PO PRN (12:06)
[2017-08-16] MEDS: NYSTATIN SUSP 500,000 U/5 ML UDC PO SCH ×3 (12:07→21:59)
[2017-08-16] MEDS ORDERED: SOD PHOSPHATE/SOD BIPHOSPHATE ENEMA 132 ML BTL PR STA (12:56)
[2017-08-16] MEDS ORDERED: SOD PHOSPHATE/SOD BIPHOSPHATE ENEMA 132 ML BTL PR ONE (14:50)
[2017-08-16 15:16] VITALS: BP 114/77; PULSE 94; TEMP 36.9; O2SAT 97
--- NOTE | 2017-08-16 15:51 | GASTROINTESTINAL CONSULTATION ---
DATE OF CONSULTATION: 08/16/2017 REASON FOR EVALUATION: Difficulty swallowing with chest pain and diarrhea. HISTORY OF PRESENT ILLNESS: The patient is a 72-year-old admitted from [facility] with a 1-month history of diarrhea. She also has a 2-week history of pain in the substernal area and pain with swallowing. She has lost several pounds and she is 79 pounds at this point. She had a CT scan since she came into the hospital, which shows some thickening of the rectosigmoid area, suggesting some sort of inflammatory process. GI consultation has been requested. PAST MEDICAL HISTORY: Remarkable for multiple sclerosis, hypertension, depression, anxiety, chronic peptic ulcer disease, status post partial gastrectomy, migraine headaches, and she has a history of Staph septicemia. MEDICATIONS: Per list. ALLERGIES: MORPHINE. FAMILY HISTORY: Positive for breast cancer, diabetes, gallbladder disease, heart disease, and hypertension. SOCIAL HISTORY: The patient is retired and lives at [facility]. Former smoker. REVIEW OF SYSTEMS: Positive for weakness, fatigue, difficulty swallowing, weight loss, diarrhea and urinary frequency. The remainder is negative. PHYSICAL EXAMINATION: GENERAL: The patient appears very thin and weak, but in no acute distress. VITAL SIGNS: Normal. Afebrile. Room air saturation is 99%. SKIN: Shows palmar erythema. RESPIRATORY: Exam shows tenderness over the sternum in the lower third. Breath sounds are normal. HEART: Showed a normal S1 and S2. Regular rate and rhythm. ABDOMEN: Shows an umbilical scar and 2 transverse lower abdominal scars. There are no masses or tenderness appreciated. IMPRESSION: The patient is having difficulty swallowing, which could be a manifestation of her multiple sclerosis. She also has some thickening of her rectosigmoid and has a prior history of Clostridium difficile. She had a Clostridium difficile done when she came into the hospital as well as stool for bacterial pathogens, both of which were negative. She has had a prior cholecystectomy as well and her liver tests are normal except for a very slightly elevated alkaline phosphatase. At this point, I would recommend tomorrow performing both an EGD and a flexible sigmoidoscopy. We were going to do flex sig today, but she had had something orally that we had to delay more than enough time to get it done today. So, this will be done tomorrow in combination with an EGD and further recommendations will be based on those results. [facility]
[2017-08-16] MEDS: COLLAGENASE OINT 30 GM TUBE EXT SCH (16:30)
--- NOTE | 2017-08-16 16:35 | DIAGNOSTIC IMAGING REPORT ---
BILATERAL LOWER EXTREMITY VENOUS DOPPLER HISTORY: Acute bilateral lower extremity edema bedbound, b/l edema, eval for DVT either leg COMPARISON STUDY: Duplex study 10/15/2010. FINDINGS: There is normal compressibility, flow, and augmentation within the bilateral lower extremity deep venous systems. Please note however that a large portion of the right superficial femoral vein is not visualized secondary to positioning. The right popliteal and calf veins are also difficult to visualize. Study is overall limited secondary to patient condition. IMPRESSION: 1. No sonographic evidence of deep venous thrombosis within the right or left lower extremity. 2. Limited study as above. Electronically signed by: Dustin Johnson M.D. 08/16/2017 4:34 PM Dictated Date/Time: 08/16/2017 4:32 PM
--- NOTE | 2017-08-16 18:37 | Progress Note ---
Subjective Date of Service: Aug 16, 2017. Subjective Pt evaluation today including: conversation w/ patient, physical exam, chart review, lab review, review of studies (CT abd/pelvis; dopplers of legs), conversation w/ reporting consultant (wound care team ), review of inpatient medication list Pain: odynophagia PO Intake: even with liquids has severe pain w/ swallowing; she is limiting her intake Voiding: hill catheter in place odynophagia present for 1 week also with mild dysphagia had diarrhea at home recently - now resolved has lost considerable amount of weight recently - 20-30 pounds; down into the 70s has had edema of legs for a few weeks but no pain has not seen blood per rectum Problem List Medical Problems: (1) Altered mental status Status: Acute (2) Altered mental status Status: Acute (3) Cellulitis Status: Acute (4) Cystitis Status: Acute (5) Dehydration Status: Acute (6) Dehydration Status: Acute (7) Diarrhea Status: Acute (8) Exacerbation of multiple sclerosis Status: Acute (9) Fall at home Status: Acute (10) Femur fracture Status: Acute (11) Fever Status: Acute (12) Fracture of right hip Status: Acute (13) Headache Status: Acute (14) Hypokalemia Status: Acute (15) Intractable pain Status: Acute (16) Intractable vomiting Status: Acute (17) Migraine Status: Acute (18) Migraine Status: Acute (19) Migraine Status: Acute (20) Migraine Status: Acute (21) Migraine Status: Acute (22) Migraine Status: Acute (23) Migraine Status: Acute (24) Migraine Status: Acute (25) Migraine Status: Acute (26) Migraine Status: Acute (27) Migraine headache Status: Acute (28) Pelvis fracture, right Status: Acute (29) Pneumonia Status: Acute (30) Pressure ulcer of right buttock Status: Acute (31) Proctocolitis Status: Acute (32) Sacral ulcer Status: Acute (33) Status post closed fracture of right hip Status: Acute (34) Tachycardia Status: Acute (35) Tachycardia Status: Acute (36) Tachycardia Status: Acute (37) UTI (urinary tract infection) Status: Acute (38) Weakness Status: Acute (39) Weakness Status: Acute (40) Weakness Status: Acute Review of Systems Constitutional: + weight loss, + weakness, No fever Respiratory: No shortness of breath Cardiac: + see HPI, + chest pain Abdomen: + pain, + problem reported (denies reflux symptoms or hiccups), No nausea, No vomiting Objective Vital Signs Date Time Temp Pulse Resp B/P (MAP) Pulse Ox O2 Delivery O2 Flow Rate FiO2 08/16/17 16:00 Room Air 08/16/17 16:00 Room Air 08/16/17 15:16 36.9 94 16 114/77 (89) 97 Room Air 08/16/17 08:00 Room Air 08/16/17 07:15 36.6 110 16 127/77 (94) 98 Room Air 08/16/17 00:00 Room Air 08/15/17 23:13 36.7 108 16 151/85 (107) 98 Room Air 08/15/17 19:00 36.4 102 16 149/95 96 Room Air 08/15/17 18:44 36.4 102 16 149/95 (113) 96 Room Air Physical Exam General Appearance: no apparent distress, + cachetic, + thin ENT: + pertinent finding (?mild thrush on tongue?) Neck: no JVD Respiratory/Chest: lungs clear, no respiratory distress, no accessory muscle use Cardiovascular: no gallop, no murmur, + tachycardia Abdomen: normal bowel sounds, soft, no organomegaly, + tenderness (upper epigastric region ) Extremities: + pedal edema, + swelling Neurologic/Psychiatric: alert, + depressed affect Laboratory Results Last 24 Hours Test 08/15/17 19:35 08/16/17 05:15 08/16/17 05:34 Troponin I 0.037 ng/ml Urine Color YELLOW Urine Appearance CLOUDY Urine pH 7.0 Urine Specific [place] 1.025 Urine Protein NEG Urine Glucose (UA) NEG Urine Ketones TRACE Urine Occult Blood 1+ Urine Nitrite NEG Urine Bilirubin NEG Urine Urobilinogen NEG Urine Leukocyte Esterase LARGE Urine WBC (Auto) >30 /hpf Urine RBC (Auto) 0-4 /hpf Urine Hyaline Casts (Auto) 1-5 /lpf Urine Epithelial Cells (Auto) 0-5 /lpf Urine Bacteria (Auto) NEG White Blood Count 8.24 K/uL Red Blood Count 4.23 M/uL Hemoglobin 13.2 g/dL Hematocrit 39.4 % Mean Corpuscular Volume 93.1 fL Mean Corpuscular Hemoglobin 31.2 pg Mean Corpuscular Hemoglobin Concent 33.5 g/dl RDW Standard Deviation 51.5 fL RDW Coefficient of Variation 15.2 % Platelet Count 366 K/uL Mean Platelet Volume 10.4 fL Sodium Level 145 mmol/L Potassium Level 3.4 mmol/L Chloride Level 114 mmol/L Carbon Dioxide Level 23 mmol/L Anion Gap 8.0 mmol/L Blood Urea Nitrogen 9 mg/dl Creatinine 0.21 mg/dl Est Creatinine Clear Calc Drug Dose 161.7 ml/min Estimated GFR () > 150.0 Estimated GFR (Non- 130.4 BUN/Creatinine Ratio 41.8 Random Glucose 67 mg/dl Calcium Level 8.1 mg/dl Magnesium Level 2.0 mg/dl Assessment and Plan 72yo female: 1. odynophagia - acute - along with dysphagia: with questionable thrush on oral cavity exam could she have candidal esophagitis? start nystatin + diflucan GI consult pending PPI bid and carafate QID otherwise make NPO for now due to severity of symptoms 2. diarrhea, ?proctocolitis on CT - GI consult pending c. diff neg stool cx pending 3. severe protein calorie malnutrition - due to MS? due to #2 and #3? pulmonary nodule (that could be lung ca)? once able to take PO then add supplements, MVI, etc. 4. MS - noted. 5. h/o orthostasis - midodrine 6. hypokalemia - add KCL to fluids 7. hypoglycemia - due to largely NPO status and little glycogen reserves; add dextrose to IVF 8. hypernatremia - resolved 9. b/l LE edema - likely due to hypoalbuminemia - dopplers neg for DVT 10. neurogenic bladder - 2nd to MS - hill placed urine cx pending DVT proph - SCDs; hold off on chemical means due to likelihood of needing EGD, etc Continued [facility] stay due to: inadequate po fluid intake, inadequate oral pain control, multiple IV medications needed Discharge planning: uncertain
[2017-08-16] MEDS: LANSOPRAZOLE SOLUTAB 30 MG PO SCH (20:08)
[2017-08-16] MEDS: MIRTAZAPINE TAB 15 MG TAB PO SCH (22:01)
[2017-08-16] MEDS: AMITRIPTYLINE HCL 25 MG TAB PO SCH (22:02)
[2017-08-17 00:09] VITALS: BP 121/80; PULSE 88; TEMP 36.8; O2SAT 97
[2017-08-17] MEDS: D5W AND 1/2NSS + 20MEQ KCL 1,000 ML IV SCH ×2 (02:04→13:35)
[2017-08-17 06:08] LABS: HEMATOCRIT 36.5 % (37-47); MEAN CELL VOLUME 94.1 fL (80-100); MEAN CORPUSCULAR HEMOGLOBIN 30.4 pg (25-34); MEAN CORPUSCULAR HGB CONC 32.3 g/dl (32-36); PLATELET COUNT 303 K/uL (130-400); RED BLOOD COUNT 3.88 M/uL (4.2-5.4); WHITE BLOOD COUNT 8.55 K/uL (4.8-10.8)
[2017-08-17] MEDS: SUCRALFATE 1 GM/10 ML UDC PO SCH ×4 (06:12→20:54)
[2017-08-17] MEDS: NYSTATIN SUSP 500,000 U/5 ML UDC PO SCH ×4 (06:12→20:56)
[2017-08-17 06:37] LABS: BLOOD UREA NITROGEN 6 mg/dl (7-18); CALCIUM 7.7 mg/dl (8.5-10.1); CARBON DIOXIDE 27 mmol/L (21-32); CHLORIDE 112 mmol/L (98-107); CREATININE < 0.15 mg/dl (0.60-1.20); GLUCOSE 97 mg/dl (70-99); MAGNESIUM 2.1 mg/dl (1.8-2.4); POTASSIUM 3.8 mmol/L (3.5-5.1); SODIUM 142 mmol/L (136-145)
[2017-08-17] MEDS: BOOST PLUS VANILLA PO SCH ×6 (07:05→18:07)
[2017-08-17] MEDS: CLOTRIMAZOLE/BETAMETHASONE CR 15 GM TUBE EXT SCH ×2 (07:05→20:00)
[2017-08-17 07:20] VITALS: BP 121/80; PULSE 102; TEMP 36.6; O2SAT 97
[2017-08-17] MEDS: MULTIVITAMIN TAB PO SCH (08:00)
[2017-08-17] MEDS: LANSOPRAZOLE SOLUTAB 30 MG PO SCH ×2 (08:00→20:38)
[2017-08-17] MEDS: MIDODRINE 2.5 MG TAB PO SCH ×3 (08:00→18:08)
[2017-08-17] MEDS: MAGNESIUM OXIDE 400 MG TAB PO SCH (08:00)
[2017-08-17] MEDS: FLUCONAZOLE 100 MG TAB PO SCH (08:00)
[2017-08-17] MEDS: TOPIRAMATE 25 MG TAB PO SCH ×2 (08:00→20:39)
[2017-08-17] MEDS: GABAPENTIN 800 MG TAB PO SCH ×3 (08:00→20:37)
[2017-08-17] MEDS: CHOLECALCIFEROL 1000 INTER.UNIT TAB PO SCH ×3 (08:00→20:40)
[2017-08-17] MEDS: POTASSIUM CHLORIDE 20 MEQ TABCR PO SCH ×2 (08:00→20:36)
[2017-08-17] MEDS: FERROUS SULFATE 325 MG TAB PO SCH ×2 (08:00→18:07)
[2017-08-17 08:49] VITALS: BP 121/80; PULSE 102; TEMP 36.6; O2SAT 97
[2017-08-17] MEDS: HEPARIN SOD 5000 UNIT/0.5 ML CARP SQ SCH ×2 (09:00→20:54)
--- NOTE | 2017-08-17 12:56 | Progress Note ---
Subjective Date of Service: Aug 17, 2017. Subjective Pt evaluation today including: conversation w/ patient, conversation w/ family ( at bedside), physical exam, chart review, lab review, review of inpatient medication list Pain: minimal abdominal PO Intake: npo Voiding: hill catheter in place No issues overnight Still w/ odynophagia and abd pain No urinary symptoms No diarrhea very weak Problem List Medical Problems: (1) Altered mental status Status: Acute (2) Altered mental status Status: Acute (3) Cellulitis Status: Acute (4) Cystitis Status: Acute (5) Dehydration Status: Acute (6) Dehydration Status: Acute (7) Diarrhea Status: Acute (8) Exacerbation of multiple sclerosis Status: Acute (9) Fall at home Status: Acute (10) Femur fracture Status: Acute (11) Fever Status: Acute (12) Fracture of right hip Status: Acute (13) Headache Status: Acute (14) Hypokalemia Status: Acute (15) Intractable pain Status: Acute (16) Intractable vomiting Status: Acute (17) Migraine Status: Acute (18) Migraine Status: Acute (19) Migraine Status: Acute (20) Migraine Status: Acute (21) Migraine Status: Acute (22) Migraine Status: Acute (23) Migraine Status: Acute (24) Migraine Status: Acute (25) Migraine Status: Acute (26) Migraine Status: Acute (27) Migraine headache Status: Acute (28) Pelvis fracture, right Status: Acute (29) Pneumonia Status: Acute (30) Pressure ulcer of right buttock Status: Acute (31) Proctocolitis Status: Acute (32) Sacral ulcer Status: Acute (33) Status post closed fracture of right hip Status: Acute (34) Tachycardia Status: Acute (35) Tachycardia Status: Acute (36) Tachycardia Status: Acute (37) UTI (urinary tract infection) Status: Acute (38) Weakness Status: Acute (39) Weakness Status: Acute (40) Weakness Status: Acute Review of Systems Constitutional: No fever Respiratory: No shortness of breath Cardiac: No chest pain Abdomen: + see HPI, + pain Objective Vital Signs Date Time Temp Pulse Resp B/P (MAP) Pulse Ox O2 Delivery O2 Flow Rate FiO2 08/17/17 08:49 36.6 102 18 121/80 97 Room Air 08/17/17 08:00 Room Air 08/17/17 07:20 36.6 102 18 121/80 (94) 97 08/17/17 00:09 36.8 88 20 121/80 (94) 97 Room Air 08/17/17 00:00 Room Air 08/16/17 20:00 Room Air 08/16/17 16:00 Room Air 08/16/17 16:00 Room Air 08/16/17 15:16 36.9 94 16 114/77 (89) 97 Room Air Physical Exam General Appearance: no apparent distress, + cachetic, + thin ENT: + pertinent finding (thrush on tongue improved) Neck: no JVD Respiratory/Chest: lungs clear, no respiratory distress, no accessory muscle use Cardiovascular: no gallop, no murmur, + tachycardia Abdomen: normal bowel sounds, soft, no organomegaly, + tenderness (epigastric, also junction of LUQ/LLQ) Extremities: + pedal edema (<1+ b/l ) Neurologic/Psychiatric: alert, oriented x 3 Laboratory Results Last 24 Hours Test 08/17/17 05:44 White Blood Count 8.55 K/uL Red Blood Count 3.88 M/uL Hemoglobin 11.8 g/dL Hematocrit 36.5 % Mean Corpuscular Volume 94.1 fL Mean Corpuscular Hemoglobin 30.4 pg Mean Corpuscular Hemoglobin Concent 32.3 g/dl RDW Standard Deviation 53.5 fL RDW Coefficient of Variation 15.5 % Platelet Count 303 K/uL Mean Platelet Volume 10.0 fL Sodium Level 142 mmol/L Potassium Level 3.8 mmol/L Chloride Level 112 mmol/L Carbon Dioxide Level 27 mmol/L Anion Gap 3.0 mmol/L Blood Urea Nitrogen 6 mg/dl Creatinine < 0.15 mg/dl Est Creatinine Clear Calc Drug Dose 226.5 ml/min Estimated GFR () > 150.0 Estimated GFR (Non- 145.7 BUN/Creatinine Ratio Random Glucose 97 mg/dl Calcium Level 7.7 mg/dl Magnesium Level 2.1 mg/dl Assessment and Plan 72yo female: 1. odynophagia - acute - along with dysphagia: with questionable thrush on oral cavity exam could she have candidal esophagitis? nystatin + diflucan - day #2 of each GI consult appreciated; NPO for EGD and flex sig today PPI bid and carafate QID 2. diarrhea, ?proctocolitis on CT - GI consult appreciated c. diff neg stool cx neg flex sig today 3. severe protein calorie malnutrition - due to MS? due to #2 and #3? pulmonary nodule (that could be lung ca)? once able to take PO then add supplements, MVI, etc. GI w/u in process 4. MS - noted. 5. h/o orthostasis - midodrine 6. hypokalemia - resolved 7. hypoglycemia - resolved 8. hypernatremia - resolved 9. b/l LE edema - likely due to hypoalbuminemia - dopplers neg for DVT 10. neurogenic bladder - 2nd to MS - hill placed 11. ford albicans UTI - diflucan DVT proph - SCDs; hold off on chemical means due to EGD/flex sig today Continued [facility] stay due to: inadequate po fluid intake, inadequate oral pain control, multiple IV medications needed Discharge planning: uncertain
[2017-08-17] MEDS ORDERED: SOD PHOSPHATE/SOD BIPHOSPHATE ENEMA 132 ML BTL PR ONE ×2 (13:00→14:50)
--- NOTE | 2017-08-17 15:32 | Endo History and Physical ---
History & Physical Date of Service: Aug 17, 2017. Chief Complaint: Chest pain, diarrhea Referring Physician: Dr Hawkins History of Present Illness For EGd and flex sig Past Medical History Other Past Surgical History Hx Cardiac Surgery: No Hx Abdominal Surgery: Yes (Appendix, gallbladder, hysterectomy, partial gastrectomy) Hx Post-Op Nausea and Vomiting: Yes Hx Cancer Surgery: No Hx Thoracic Surgery: Yes (Bilateral hip/back) Hx Orthopedic: No Hx Urinary Tract Surgery: No Social History Smoking Status: Former Smoker Smokeless Tobacco Use: No Hx Substance Use: No Hx Alcohol Use: No Allergies Coded Allergies: Morphine (Verified Adverse Reaction, Intermediate, " MAKES ME MEAN" - CONFUSION, 08/15/17) Current Medications Reported Home Medications Medications Dose Route/Sig Max Daily Dose Days Date Category Dose Instructions Magnesium Oxide (Magnesium Oxide (mg Supplement) 400 Mg Cap 400 Mg PO DAILY 08/15/17 Reported Probiotic (Probiotic Product) 1 Cap Cap 1 Cap PO BID 08/15/17 Reported [Liquid Protein] 1 Dose PO BID 08/15/17 Reported Multivitamin (Multiple Vitamin) 1 Tab Tab 1 Tab PO DAILY 08/15/17 Reported Dulcolax (Bisacodyl) 10 Mg Sup 1 Supp TN Q4DAYS PRN 08/15/17 Reported Fleet Enema (Sodium Phosphate/Biphosphate) Kathleen 1 Ea TN DAILY PRN 08/15/17 Reported Tums (Calcium Carbonate) 500 Mg Chew 500 Mg PO Q6H 08/15/17 Reported Milk Of Magnesia (Magnesium Hydroxide) 30 Ml Susp 30 Ml PO UD PRN 08/15/17 Reported Insta-Glucose (Dextrose (Diabetic Use)) 77.4 % Gel 1 Dose PO UD PRN 08/15/17 Reported DISSOLVE BUCCALLY NEEDED Lotrisone (Clotrimazole W/ Betamethasone) 1 Cre Cre 1 Appln TOP BID 08/15/17 Reported TO RASH ON BUTTOCKS AND GROIN Zofran (Ondansetron HCl) 4 Mg Tab 4 Mg PO Q8H PRN 08/15/17 Reported Glucagon Emergency Kit (Glucagon) 1 Mg Kit 1 Mg IM UD PRN 08/15/17 Reported Ativan (Lorazepam) 0.5 Mg Tab 0.5 Mg PO TID PRN 08/15/17 Reported Tylenol (Acetaminophen) 650 Mg Supp 1 Supp TN Q6H PRN 08/15/17 Reported Carafate (Sucralfate) 1 Gm/10 Ml Charlette 10 Ml PO TIDM 08/15/17 Reported Potassium Chloride Er (Potassium Chloride) 10 Meq Tab 10 Meq PO QAM 08/15/17 Reported Ultram (Tramadol Hcl) 50 Mg Tab 50 Mg PO BID PRN 3 07/26/17 Rx Topiramate 25 Mg Tab 25 Mg PO BID 07/22/17 Reported Vitamin D3 (Cholecalciferol) 1,000 Unit Tab 4,000 Inter.unit PO TID 03/05/17 Reported Tylenol (Acetaminophen) 325 Mg Tab 325 Mg PO DAILY PRN 10/16/16 Reported Ferrous Sulfate 325 Mg Tab 325 Mg PO BID 08/01/16 Reported Tysabri (Natalizumab) Unknown Strength Inj 1 Dose IV MONTHLY 06/16/16 Reported CURRENTLY ON HOLD FROM 08/13/17 - 09/13/17 Pantoprazole Sodium (Pantoprazole) 40 Mg Tab 40 Mg PO BID 02/11/16 Reported Imitrex (Sumatriptan Succinate) 100 Mg Tab 100 Mg PO UD PRN 11/29/14 Reported TAKE 1 TABLET FOR MIGRAINE RELIEF, MAY REPEAT 2 HOURS LATER IF NEEDED. MAXIMUM 200 MG/DAY. Mirtazapine 45 Mg Tab 45 Mg PO HS 11/29/14 Reported Alendronate Sodium 70 Mg Tab 70 Mg PO WK 11/29/14 Reported TAKE THIS MEDICATION EVERY MONDAY Midodrine Hcl 5 Mg Tab 5 Mg PO TID 11/29/14 Reported Gabapentin 800 Mg Tab 800 Mg PO TID 11/07/14 Reported Elavil (Amitriptyline Hcl) 75 Mg Tab 75 Mg PO HS 11/07/14 Reported TAKE THIS MEDICATION 2-3 HOURS BEFORE BEDTIME. Vital Signs Weight (Kilograms): 41.100 Height (Feet): 5 Height (Inches): 3.00 Date Time Temp Pulse Resp B/P (MAP) Pulse Ox O2 Delivery O2 Flow Rate FiO2 08/17/17 08:49 36.6 102 18 121/80 97 Room Air 08/17/17 08:00 Room Air 08/17/17 07:20 36.6 102 18 121/80 (94) 97 08/17/17 00:09 36.8 88 20 121/80 (94) 97 Room Air 08/17/17 00:00 Room Air 08/16/17 20:00 Room Air 10/4/17 16:00 Room Air 08/16/17 16:00 Room Air Physical Exam General Appearance: + thin Respiratory/Chest: Respiratory effort: no dyspnea Cardiovascular: Heart Auscultation: RRR Abdomen: Bowel Sounds: pertinent finding (scars) Assessment and Plan chest pain, diarrhea for EGD and flex sig
--- NOTE | 2017-08-17 15:55 | Discharge Instructions ---
Endoscopy Patient Instructions Date / Procedure(s) Performed Aug 17, 2017. EGD, Flex Sig Allergy Information Coded Allergies: Morphine (Verified Adverse Reaction, Intermediate, " MAKES ME MEAN" - CONFUSION, 08/15/17) Discharge Date / Findings Aug 17, 2017. Gastric bypass, normal flex sig Medication Instructions Restart Stopped Medication(s): resume meds Current Inpatient Medications Medications (Trade) Dose Ordered Sig/Melvin Route Start Time Stop Time Status Last Admin Dose Admin Ioversol (Optiray 320) 125 ml UD PRN IV 08/15/17 12:15 08/19/17 12:14 Acetaminophen (Tylenol Tab) 650 mg Q4H PRN PO 08/15/17 16:30 09/14/17 16:29 08/16/17 12:06 650 MG Al Hydrox/Mg Hydrox/Simethicone (Maalox Max Susp) 15 ml Q4H PRN PO 08/15/17 16:30 09/14/17 16:29 Magnesium Hydroxide (Milk Of Magnesia Susp) 30 ml Q6H PRN PO 08/15/17 16:30 09/14/17 16:29 Polyethylene (Miralax Powder Packet) 17 gm DAILY PRN PO 08/15/17 17:15 09/14/17 17:14 Ondansetron HCl (Zofran Inj) 4 mg Q6H PRN IV 08/15/17 16:30 09/14/17 16:29 Heparin Sodium (Porcine) (Heparin Sq 5000 Unit/0.5ml) 5,000 unit Q12 SQ 08/15/17 21:00 09/14/17 20:59 08/16/17 21:49 5,000 UNIT Amitriptyline HCl (Elavil Tab) 75 mg HS PO 08/15/17 22:00 09/14/17 21:59 08/16/17 22:02 75 MG Bisacodyl (Dulcolax Supp) 10 mg DAILY PRN [place] 08/15/17 16:30 09/14/17 16:29 Calcium Carbonate (Tums Chew Tab) 500 mg Q6H PRN PO 08/15/17 16:30 09/14/17 16:29 Cholecalciferol (Vitamin D Tab) 4,000 inter.unit TID PO 08/15/17 20:00 09/14/17 20:59 08/16/17 20:07 4,000 INTER.UNIT Betamethasone/ Clotrimazole (Lotrisone Crm) 1 appln BID EXT 08/15/17 20:00 09/14/17 20:59 08/16/17 09:17 1 APPLN Gabapentin (Neurontin Tab) 800 mg TID PO 08/15/17 20:00 09/14/17 19:59 08/16/17 20:07 800 MG Lorazepam (Ativan Tab) 0.5 mg TID PRN PO 08/15/17 16:30 09/14/17 16:29 Multivitamins (Multivitamin Tab) 1 tab DAILY PO 08/16/17 08:00 09/15/17 08:59 08/16/17 09:19 1 TAB Sumatriptan Succinate (Imitrex Tab) 100 mg UD PRN PO 08/15/17 16:30 09/14/17 16:29 08/16/17 20:04 100 MG Topiramate (Topamax Tab) 25 mg BID PO 08/15/17 20:00 09/14/17 20:59 08/16/17 20:07 25 MG Tramadol HCl (Ultram Tab) 50 mg BID PRN PO 08/15/17 16:30 09/14/17 16:29 08/16/17 05:22 50 MG Ferrous Sulfate (Feosol Tab) 325 mg BIDM PO 08/16/17 08:00 09/15/17 07:59 08/16/17 17:31 325 MG Magnesium Oxide (Mag-Ox Tab) 400 mg QAM PO 08/16/17 08:00 09/15/17 08:59 08/16/17 09:22 400 MG Midodrine (Proamatine Tab) 5 mg TID@,, PO 08/16/17 08:00 09/15/17 07:59 08/16/17 17:31 5 MG Mirtazapine (Remeron Tab) 45 mg HS PO 08/15/17 22:00 09/14/17 21:59 08/16/17 22:01 45 MG Enteral Nutritional Formula (Boost Plus Vanilla) 1 can TIDM PO 08/16/17 08:00 09/15/17 07:59 08/16/17 17:38 1 CAN Heparin Sodium (Porcine) (Heparin 100 Unit/ml 5ml Flush) 5 ml PRN PRN IV 08/16/17 01:45 09/15/17 01:44 08/16/17 09:03 5 ML Potassium Chloride (Klor-Con Tab) 20 meq BID PO 08/16/17 09:30 09/15/17 09:29 08/16/17 20:08 20 MEQ Potassium Chloride/Dextrose/ Sod Cl 1,000 ml @ 75 mls/hr [id number] IV 08/16/17 09:30 09/15/17 08:44 08/17/17 13:35 75 MLS/HR Sucralfate (Carafate Susp) 1 gm ACHS PO 08/16/17 11:00 09/15/17 10:59 08/17/17 06:12 1 GM Nystatin (Mycostatin Susp) 5 ml ACHS PO 08/16/17 11:00 08/26/17 10:59 08/17/17 06:12 5 ML Fluconazole (Diflucan Tab) 100 mg QAM PO 08/17/17 08:00 08/27/17 07:59 Lansoprazole (Prevacid Solutab) 30 mg BID PO 08/16/17 20:00 09/15/17 19:59 08/16/17 20:08 30 MG Collagenase (Santyl Oint) 1 appln DAILY EXT 08/16/17 16:30 09/15/17 16:29 Provider Instructions Activity Restrictions - No exercising or heavy lifting for 24 hours. - Do not drink alcohol the day of the procedure. - Do not drive a car or operate machinery until the day after the procedure. - Do not make any important decisions or sign important papers in 24 hours after the procedure. Following Day: - Return to full activity which may include returning to work/school. Diet Start your diet with liquids and light foods (jello, soup, juice, toast). Then eat your usual diet if not nauseated. Treatment For Common After Affects For mild abdominal pain, bloating, or excessive gas: - Rest - Eat lightly - Lie on right side Follow-Up Information Follow-up with as scheduled Anesthesia Information What You Should Know You have had a procedure that required some medicine to reduce anxiety and discomfort. This treatment is called moderate sedation. After receiving the treatment, you may be sleepy, but you will be able to breathe on your own. The effects of the treatment may last for several hours. Follow these instructions along with Activity/Diet recommendations noted above: * Do NOT do anything where dizziness or clumsiness would be dangerous. * Rest quietly at home today, then you can be up and about tomorrow. * Have a responsible person stay with you the rest of today. * You may have had an I.V. today. If so, you may take the dressing off later today. Recommendations Call your doctor if: * Trouble breathing * Continuous vomiting for more than 24 hours * Temperature above 101 degrees * Severe abdominal pain or bloating * Pain not relieved by pain medicine ordered * There is increased drainage or redness from any incision * A large amount of rectal bleeding greater than 2-3 tablespoons. (If you had a polyp/s removed or have hemorrhoids, a small amount of blood - from the rectum is to be expected.) * You have any unanswered questions or concerns. IN THE EVENT OF A SERIOUS EMERGENCY, GO TO THE NEAREST EMERGENCY ROOM Your discharge instructions were prepared by provider Ar Maldonado. Patient Instructions Signature Page Bertha Jasso Patient (or Guardian) Signature/Date: I have read and understand the instructions given to me by my caregivers. Caregiver/RN/Doctor Signature/Date: The above-named patient and/or guardian has received patient instructions on this date. + Original Patient Signature Page (only) stays with chart. Please make copy for patient.
--- NOTE | 2017-08-17 16:19 | Anesthesiology Progress Note ---
Anesthesia Post Op Note Date & Time Aug 17, 2017 at 16:18 Vital Signs Pain Intensity: 0.0 Vital Signs Past 12 Hours Date Time Temp Pulse Resp B/P (MAP) Pulse Ox O2 Delivery O2 Flow Rate FiO2 08/17/17 16:14 97 18 121/79 (93) 98 Room Air 08/17/17 15:58 36.6 80 18 108/63 (78) 100 Room Air 08/17/17 08:49 36.6 102 18 121/80 97 Room Air 08/17/17 08:00 Room Air 08/17/17 07:20 36.6 102 18 121/80 (94) 97 Notes Mental Status: alert / awake / arousable, participated in evaluation Pt Amnestic to Procedure: Yes Nausea / Vomiting: adequately controlled Pain: adequately controlled Airway Patency, RR, SpO2: stable & adequate BP & HR: stable & adequate Hydration State: stable & adequate Anesthetic Complications: no major complications apparent
--- NOTE | 2017-08-17 16:54 | GI REPORT ---
Procedure Date: 08/17/2017 3:42 PM Procedure: Upper GI endoscopy Indications: Chest pain (non cardiac) Medicines: Propofol total dose 70 mg IV, Lidocaine 80 mg IV Complications: No immediate complications. Estimated Blood Loss: Estimated blood loss was minimal. Procedure: Pre-Anesthesia Assessment: - Prior to the procedure, a History and Physical was performed, and patient medications, allergies and sensitivities were reviewed. The patient's tolerance of previous anesthesia was reviewed. - The risks and benefits of the procedure and the sedation options and risks were discussed with the patient. All questions were answered and informed consent was obtained. After obtaining informed consent, the endoscope was passed under direct vision. Throughout the procedure, the patient's blood pressure, pulse, and oxygen saturations were monitored continuously. The scope was introduced through the mouth, and advanced to the jejunum. The upper GI endoscopy was accomplished without difficulty. The patient tolerated the procedure well. Findings: The examined esophagus was normal. Evidence of a Jakub-en-Y gastrojejunostomy was found. The gastrojejunal anastomosis was characterized by healthy appearing mucosa and visible sutures. This was traversed. The [id number]-le-[id number] limb was characterized by healthy appearing mucosa. The examined jejunum was normal. Biopsies were taken with a cold forceps for histology. Estimated blood loss was minimal. Impression: - Normal esophagus. - Jakub-en-Y gastrojejunostomy with gastrojejunal anastomosis characterized by healthy appearing mucosa and visible sutures. - Normal examined jejunum. Biopsied. Recommendation: - Return patient to [facility] for ongoing care. Ar Maldonado M.D. Ar Maldonado MD 08/17/2017 4:00:55 PM This report has been signed electronically. Note Initiated On: 08/17/2017 3:42 PM I attest to the content of the Intraoperative Record and orders documented therein, exceptions below
--- NOTE | 2017-08-17 16:54 | GI REPORT ---
Procedure Date: 08/17/2017 3:41 PM Procedure: Colonoscopy Indications: Clinically significant diarrhea of unexplained origin Medicines: Propofol total dose 70 mg IV, Lidocaine 80 mg IV Complications: No immediate complications. Estimated Blood Loss: Estimated blood loss: none. Procedure: Pre-Anesthesia Assessment: - Prior to the procedure, a History and Physical was performed, and patient medications, allergies and sensitivities were reviewed. The patient's tolerance of previous anesthesia was reviewed. - The risks and benefits of the procedure and the sedation options and risks were discussed with the patient. All questions were answered and informed consent was obtained. After I obtained informed consent, the scope was passed under direct vision. Throughout the procedure, the patient's blood pressure, pulse, and oxygen saturations were monitored continuously. The scope was introduced through the anus and advanced to the descending colon. The colonoscopy was performed without difficulty. The patient tolerated the procedure well. The quality of the bowel preparation was good. Findings: Normal mucosa was found in the rectum, in the sigmoid colon and in the descending colon. Impression: - Normal mucosa in the rectum, in the sigmoid colon and in the descending colon. - No specimens collected. Recommendation: - Return patient to hospital [facility] for ongoing care. Ar Maldonado M.D. Ar Maldonado MD 08/17/2017 4:02:51 PM This report has been signed electronically. Note Initiated On: 08/17/2017 3:41 PM I attest to the content of the Intraoperative Record and orders documented therein, exceptions below
--- NOTE | 2017-08-17 17:18 | PROGRESS NOTE ---
DATE: 08/17/2017 SUBJECTIVE: The patient underwent an EGD for chest pain today. Her esophagus was normal without evidence of acid reflux disease. She has had a gastric bypass. Her gastric pouch was normal following surgery with patent and healthy looking anastomosis. There was some suture present at the anastomosis but no ulceration or inflammation. The small bowel was entered for several centimeters and biopsies were obtained to rule out celiac disease. Her flexible sigmoidoscopy was performed to evaluate for her diarrhea. Exam was carried to 30 cm. Prep was good and there was no mucosal abnormality seen.
[2017-08-17] MEDS: COLLAGENASE OINT 30 GM TUBE EXT SCH (18:57)
[2017-08-17] MEDS: TRAMADOL HCL 50 MG TAB PO PRN (19:14)
[2017-08-17] MEDS: AMITRIPTYLINE HCL 25 MG TAB PO SCH (20:56)
[2017-08-17] MEDS: MIRTAZAPINE TAB 15 MG TAB PO SCH (20:57)
[2017-08-17 23:30] LABS: BASO % 0.2 %; BASO ABS # 0.02 K/uL (0-0.2); EOS % 1.5 %; HEMATOCRIT 37.1 % (37-47); IG% 0.2 %; LYMPH % 21.3 %; LYMPH ABS # 2.14 K/uL (1.2-3.4); MEAN CELL VOLUME 92.3 fL (80-100); MEAN CORPUSCULAR HEMOGLOBIN 31.8 pg (25-34); MEAN PLATELET VOLUME 9.9 fL (7.4-10.4); MONO % 6.3 %; NEUT % 70.5 %; PLATELET COUNT 315 K/uL (130-400); RED BLOOD COUNT 4.02 M/uL (4.2-5.4); WHITE BLOOD COUNT 10.07 K/uL (4.8-10.8)
[2017-08-17 23:34] LABS: COMPLETE YES; MEAN CORPUSCULAR HGB CONC 34.5 g/dl (32-36)
[2017-08-17 23:56] LABS: BUN/CREATININE RATIO 17.6 (10-20); CALCIUM 7.9 mg/dl (8.5-10.1); CREATININE 0.29 mg/dl (0.60-1.20); POTASSIUM 3.8 mmol/L (3.5-5.1)
[2017-08-18] VITALS (8 sets, daily range): BP systolic 117–148; BP diastolic 72–83; PULSE 73–118; TEMP 36.4–36.9; O2SAT 94–97
[2017-08-18] MEDS: D5W AND 1/2NSS + 20MEQ KCL 1,000 ML IV SCH ×2 (01:57→17:21)
[2017-08-18] MEDS: METOPROLOL TARTRATE 1 MG/ML VIAL IV. SCH ×5 (04:33→20:18)
[2017-08-18] MEDS: SUCRALFATE 1 GM/10 ML UDC PO SCH ×4 (06:29→20:19)
[2017-08-18] MEDS: NYSTATIN SUSP 500,000 U/5 ML UDC PO SCH ×4 (06:29→20:20)
--- NOTE | 2017-08-18 06:46 | DIAGNOSTIC IMAGING REPORT ---
CHEST ONE VIEW PORTABLE CLINICAL HISTORY: Chest pain. COMPARISON STUDY: Chest radiograph August 15, 2017. FINDINGS: Thoracolumbar spine fusion hardware is noted as well as a left subclavian [id number]. There is no evidence of pulmonary edema. Skin folds project over each hemithorax. No consolidation is identified to suggest pneumonia. Mild left basilar opacity is noted. There is slight elevation of the left hemidiaphragm. IMPRESSION: Mild left basilar opacity with volume loss. The appearance favors atelectasis although consolidation could appear similar. Electronically signed by: Edgar Dotson M.D. 08/18/2017 6:45 AM Dictated Date/Time: 08/18/2017 6:43 AM
[2017-08-18] MEDS: BOOST PLUS VANILLA PO SCH ×4 (07:30→11:30)
[2017-08-18] MEDS: FERROUS SULFATE 325 MG TAB PO SCH ×2 (07:45→17:23)
[2017-08-18] MEDS: MULTIVITAMIN TAB PO SCH (07:45)
[2017-08-18] MEDS: LANSOPRAZOLE SOLUTAB 30 MG PO SCH ×2 (07:46→20:20)
[2017-08-18] MEDS: CHOLECALCIFEROL 1000 INTER.UNIT TAB PO SCH ×3 (07:46→20:21)
[2017-08-18] MEDS: GABAPENTIN 800 MG TAB PO SCH ×3 (07:47→20:20)
[2017-08-18] MEDS: TOPIRAMATE 25 MG TAB PO SCH ×2 (07:48→20:20)
[2017-08-18] MEDS: FLUCONAZOLE 100 MG TAB PO SCH (07:48)
[2017-08-18] MEDS: POTASSIUM CHLORIDE 20 MEQ TABCR PO SCH ×2 (07:49→20:20)
[2017-08-18] MEDS: MAGNESIUM OXIDE 400 MG TAB PO SCH (07:50)
[2017-08-18] MEDS: MIDODRINE 2.5 MG TAB PO SCH ×3 (07:50→17:24)
[2017-08-18] MEDS: COLLAGENASE OINT 30 GM TUBE EXT SCH (07:51)
[2017-08-18] MEDS: CLOTRIMAZOLE/BETAMETHASONE CR 15 GM TUBE EXT SCH ×2 (07:52→20:19)
[2017-08-18] MEDS: HEPARIN SOD 5000 UNIT/0.5 ML CARP SQ SCH ×2 (07:54→20:21)
[2017-08-18 10:46] LABS: BLOOD UREA NITROGEN 5 mg/dl (7-18); BUN/CREATININE RATIO 32.5 (10-20); CALCIUM 7.5 mg/dl (8.5-10.1); CARBON DIOXIDE 24 mmol/L (21-32); CHLORIDE 113 mmol/L (98-107); CREATININE 0.16 mg/dl (0.60-1.20); GLUCOSE 109 mg/dl (70-99); MAGNESIUM 1.9 mg/dl (1.8-2.4); POTASSIUM 4.1 mmol/L (3.5-5.1); SODIUM 142 mmol/L (136-145)
[2017-08-18 11:02] LABS: HEMATOCRIT 32.8 % (37-47); MEAN CELL VOLUME 92.4 fL (80-100); MEAN CORPUSCULAR HEMOGLOBIN 31.5 pg (25-34); MEAN CORPUSCULAR HGB CONC 34.1 g/dl (32-36); MEAN PLATELET VOLUME 10.3 fL (7.4-10.4); PLATELET COUNT 296 K/uL (130-400); RED BLOOD COUNT 3.55 M/uL (4.2-5.4); WHITE BLOOD COUNT 9.62 K/uL (4.8-10.8)
--- NOTE | 2017-08-18 13:54 | CARDIOLOGY CONSULTATION ---
DATE OF CONSULTATION: 08/18/2017 TIME: 12:54 p.m. CONSULTING CLINICIAN: Dr. David. REASON FOR CONSULTATION: New left bundle branch block and tachycardia. HISTORY OF PRESENT ILLNESS: Ms. Jasso is a very pleasant 72-year-old female with a history significant for hypertension, multiple sclerosis, and history of peptic ulcer disease who presented to [facility] on 08/15/2017 with complaints of chest pain, diarrhea, decreased appetite, and weight loss. Her chest discomfort occurs with eating. It is worse with eating quicker and is taking larger bites. She has not noted any clear association with certain foods; however. Symptoms do not necessarily occur with swallowing fluids. She had improvement in her symptoms following a GI cocktail. Because of her symptoms, she has been evaluated by gastroenterology and has undergone an EGD and a colonoscopy with no clear etiology for her discomfort while swallowing. She denies any exertional symptoms such as chest pain, but admits that she does not exert herself much secondary to her overall general weakness from multiple sclerosis. She admits that she has been losing weight. She does not have a good appetite. She recently moved to the [facility] due to her weakness and required care. Consultation for cardiology was placed this morning due to the fact that yesterday following her EGD, she was experiencing elevated blood pressure and heart rate. This prompted an ECG, which demonstrated a left bundle branch block, which is reportedly new. When she presented to the hospital on 08/15/2017, she had sinus tachycardia with a rate of 103 with narrow complex QRS, but anterior T-wave inversions as well as inferior T-wave inversions. On 08/17/2017, she had a left bundle branch block with a heart rate of 120 and then overnight at 0001 on 08/18/2017, heart rate was 119 beats per minute, once again with left bundle branch block. On 06/17/2017, an ECG demonstrated sinus tachycardia at 114 beats per minute with nonspecific ST/T wave abnormalities, but narrow complex. On 07/23/2017 once again had narrow complex with a heart rate of 96 beats per minute but had anterior and lateral T-wave inversions. She continues to have some pain with swallowing, but states when she eats smaller amounts at a slower pace with smaller quantities each time, she is feeling better in that regard. She does feel palpitations intermittently when lying down at night, but otherwise no palpitations during this hospitalization. She denies angina, shortness of breath, syncope, or bleeding. REVIEW OF SYSTEMS: As above and review of systems otherwise negative/unremarkable. PAST MEDICAL HISTORY: 1. Hypertension. 2. Peptic ulcer disease. 3. Hysterectomy. 4. Migraine. 5. Multiple sclerosis. 6. History of sepsis. 7. Depression. 8. Anxiety. 9. Status post partial gastrectomy. 10. Chest pain: She has been evaluated in the past in 2013 by cardiology for chest pain, which was felt to be noncardiac as it was reproducible on exam. CURRENT MEDICATIONS: Include amitriptyline 75 mg at bedtime, ferrous sulfate 325 mg p.o. b.i.d., Diflucan 100 mg daily, heparin 5,000 units subQ q. 12 hours, Neurontin 800 mg t.i.d., Prevacid 30 mg p.o. b.i.d., magnesium oxide 400 mg daily, metoprolol tartrate 2.5 mg IV q. 4 hours, Remeron 45 mg at bedtime, midodrine 500 mg p.o. t.i.d., potassium chloride 20 mEq p.o. b.i.d., Imitrex 100 mg for migraines, and Topamax 25 mg p.o. b.i.d. HOME MEDICATIONS: Include midodrine 500 mg p.o. t.i.d., Protonix 40 mg p.o. b.i.d. Please see H&P for full list. ALLERGIES: SHE HAS AN INTOLERANCE TO MORPHINE. SOCIAL HISTORY: Denies current tobacco abuse. No alcohol. No drugs. She is . Children. Currently, residing at the [facility]. FAMILY HISTORY: No known premature CAD. PHYSICAL EXAMINATION: VITAL SIGNS: Temperature 36.7 degrees, heart rate 83 beats per minute, respiration rate 18, blood pressure 147/83 mmHg, oxygen saturation 95% on room air. Most recent weight was 41.1 kg. GENERAL: In no acute distress. She is alert. She is cachectic appearing. HEENT: Anicteric sclerae. NECK: No appreciable JVD. No bruits. Normal carotid upstrokes bilaterally. CARDIAC: PMI was nondisplaced. There was no ventricular heave. Regular, normal S1, S2. There are no audible murmurs, rubs or gallops. LUNGS: Clear to auscultation bilaterally without wheezes, rales or rhonchi. ABDOMEN: Tender, central abdomen and left quadrants, but no rebound tenderness. Normoactive bowel sounds, no bruits noted. EXTREMITIES: Trace to 1+ bilateral lower extremity edema. 2+ radial pulses bilaterally. 2+ dorsalis pedis pulses bilaterally. No cyanosis. PSYCHIATRIC: Affect appears appropriate. IMAGING DATA: Telemetry personally reviewed. She was initially tachycardic, but the rhythm was sinus. Currently, sinus rhythm with narrow complex QRS. ECGs personally reviewed as noted above. Multiple historical ECGs were also checked through the [employer] system with no other identified left bundle branch block. LABORATORY DATA: White blood cell count is 9.6, hemoglobin 11.2, platelets 296. Sodium 142, potassium 4.1, BUN 5, creatinine 0.16, magnesium 1.9. Peak troponin 0.037, albumin 1.9 and INR 1. Venous Doppler 08/16/2017. No DVT bilateral lower extremities per radiology. Abdominal/pelvis CT scan 08/15/2017: Suggested proctocolitis. Speculated partially imaged noncalcified pulmonary nodule, right lower lobe, measuring 9 mm. EGD 08/17/2017: Reported normal esophagus. Jakub-en-Y gastrojejunostomy with gastrojejunal anastomosis with healthy appearing mucosa and visible sutures. Echocardiogram 11/02/2016: Report reviewed. LV systolic function reported at 65% with normal wall motion. No significant valvular abnormalities were reported. Normal PASP. ASSESSMENT AND PLAN: 1. Left bundle branch block: Appears to be rate-related phenomenon. Repeat electrocardiogram now; however, QRS complexes do not appear to be significantly widened on telemetry. Her baseline electrocardiogram also had narrow complex. Echocardiogram ordered to evaluate for structural disease. She did not have symptoms concerning for acute coronary syndrome. 2. Chest pain: Appears to be secondary to swallowing foods. Appears to be gastrointestinal in etiology and not related to ischemic heart disease. 3. Abnormal electrocardiogram: She did develop recent deep T-wave inversions in the anterior and lateral leads. Echocardiogram ordered and pending. Repeat electrocardiogram today. 4. Tachycardia: She was tachycardic following her recent procedure as noted in the nursing notes. Her heart rate has since improved. She is on low dose intravenous beta nory. It is not clear if she will require a beta nory and therefore consider discontinuing to see what her heart rate is off a beta nory. If she is found to have significant ventricular systolic function on echo, would consider metoprolol succinate in place of metoprolol tartrate. 5. Disposition: Echocardiogram pending. If echocardiogram is without significant structural abnormalities, no further evaluation recommended at this time for what appears to be a rate related left bundle branch block. Plan of care and diagnosis were discussed with her. If echocardiogram demonstrates significant findings, further assessment and plan will follow. Plan of care has been discussed with Dr. David, the primary hospitalist service. Thank you for allowing me to participate in care of Ms. Jasso.
[2017-08-18] MEDS: ACETAMINOPHEN 325 MG TAB PO PRN (14:03)
--- NOTE | 2017-08-18 15:52 | Progress Note ---
Subjective Date of Service: Aug 18, 2017. Subjective this pt is weak and tired, eating some but not much, did have rate related LBBB but not feeling that this is ischemic related. Pt herself does not have any complaints except for feeling drastically weak Problem List Medical Problems: (1) Altered mental status Status: Acute (2) Altered mental status Status: Acute (3) Cellulitis Status: Acute (4) Cystitis Status: Acute (5) Dehydration Status: Acute (6) Dehydration Status: Acute (7) Diarrhea Status: Acute (8) Exacerbation of multiple sclerosis Status: Acute (9) Fall at home Status: Acute (10) Femur fracture Status: Acute (11) Fever Status: Acute (12) Fracture of right hip Status: Acute (13) Headache Status: Acute (14) Hypokalemia Status: Acute (15) Intractable pain Status: Acute (16) Intractable vomiting Status: Acute (17) Migraine Status: Acute (18) Migraine Status: Acute (19) Migraine Status: Acute (20) Migraine Status: Acute (21) Migraine Status: Acute (22) Migraine Status: Acute (23) Migraine Status: Acute (24) Migraine Status: Acute (25) Migraine Status: Acute (26) Migraine Status: Acute (27) Migraine headache Status: Acute (28) Pelvis fracture, right Status: Acute (29) Pneumonia Status: Acute (30) Pressure ulcer of right buttock Status: Acute (31) Proctocolitis Status: Acute (32) Sacral ulcer Status: Acute (33) Status post closed fracture of right hip Status: Acute (34) Tachycardia Status: Acute (35) Tachycardia Status: Acute (36) Tachycardia Status: Acute (37) UTI (urinary tract infection) Status: Acute (38) Weakness Status: Acute (39) Weakness Status: Acute (40) Weakness Status: Acute Review of Systems Constitutional: No fever, No chills Respiratory: No cough, No wheezing, No shortness of breath Cardiac: No chest pain, No orthopnea, No PND Abdomen: No pain, No nausea, No vomiting Musculoskeletal: + joint pain, + muscle pain Neurologic: + memory loss, + weakness Psychiatric: + depression symptoms, + anhedonism Objective Vital Signs Date Time Temp Pulse Resp B/P (MAP) Pulse Ox O2 Delivery O2 Flow Rate FiO2 08/18/17 04:38 81 123/79 (94) 10/6/17 04:33 99 124/82 08/18/17 04:00 36.8 99 124/82 (96) 96 Room Air 08/18/17 04:00 96 Room Air 08/18/17 00:00 36.9 118 148/72 (97) 96 08/18/17 00:00 96 Room Air 08/17/17 16:30 90 18 133/77 (95) 100 Room Air 08/17/17 16:14 97 18 121/79 (93) 98 Room Air 08/17/17 16:00 Room Air 08/17/17 15:58 36.6 80 18 108/63 (78) 100 Room Air 08/17/17 08:49 36.6 102 18 121/80 97 Room Air 08/17/17 08:00 Room Air Physical Exam General Appearance: WD/WN, + moderate distress Neck: supple, no JVD Respiratory/Chest: chest non-tender, lungs clear, normal breath sounds Cardiovascular: regular rate, rhythm, no murmur Abdomen: normal bowel sounds, non tender, soft Extremities: no pedal edema, no calf tenderness Neurologic/Psychiatric: alert, + motor weakness Laboratory Results Last 24 Hours Test 08/17/17 23:22 08/18/17 04:44 White Blood Count 10.07 K/uL Red Blood Count 4.02 M/uL Hemoglobin 12.8 g/dL Hematocrit 37.1 % Mean Corpuscular Volume 92.3 fL Mean Corpuscular Hemoglobin 31.8 pg Mean Corpuscular Hemoglobin Concent 34.5 g/dl Platelet Count 315 K/uL Mean Platelet Volume 9.9 fL Neutrophils (%) (Auto) 70.5 % Lymphocytes (%) (Auto) 21.3 % Monocytes (%) (Auto) 6.3 % Eosinophils (%) (Auto) 1.5 % Basophils (%) (Auto) 0.2 % Neutrophils # (Auto) 7.11 K/uL Lymphocytes # (Auto) 2.14 K/uL Monocytes # (Auto) 0.63 K/uL Eosinophils # (Auto) 0.15 K/uL Basophils # (Auto) 0.02 K/uL RDW Standard Deviation 50.3 fL RDW Coefficient of Variation 14.9 % Immature Granulocyte % (Auto) 0.2 % Immature Granulocyte # (Auto) 0.02 K/uL Sodium Level 142 mmol/L Potassium Level 3.8 mmol/L Chloride Level 111 mmol/L Carbon Dioxide Level 25 mmol/L Anion Gap 6.0 mmol/L Blood Urea Nitrogen 5 mg/dl Creatinine 0.29 mg/dl Est Creatinine Clear Calc Drug Dose 117.1 ml/min Estimated GFR () 136.0 Estimated GFR (Non- 117.3 BUN/Creatinine Ratio 17.6 Random Glucose 103 mg/dl Calcium Level 7.9 mg/dl Magnesium Level 2.0 mg/dl Troponin I 0.021 ng/ml Assessment and Plan 72yo female with odynophagia recent upper and lower scope without explanation of symptoms, had tachyarrhythmia overnight Rate Related LBBB will keep in tele and follow, cardiology does not feel is ischemic related and her exertional status is poor odynophagia - acute - thrush nystatin + diflucan -GI consult appreciated; no significant findings on upper and lower scopes, PPI bid and carafate QID, speech feels more a esophageal motility issue but cannot perform swallowing study diarrhea, ?proctocolitis on CT - GI consult appreciated supportive care c. diff neg, stool cx neg severe protein calorie malnutrition - due to MS? pulmonary nodule will need follow up MS - noted. orthostasis - treated in past wtih midodrine, some associated LE edema also worsened with poor nutrition, negative doppler for DVT hypernatremia/ hypokalemia - resolved hypoglycemia - resolved neurogenic bladder - 2nd to MS - hill placed ford albicans UTI - diflucan DVT proph - SCDs; Continued [facility] stay due to: inadequate po fluid intake, inadequate oral pain control, multiple IV medications needed Discharge planning: uncertain
--- NOTE | 2017-08-18 16:30 | ECHOCARDIOGRAM REPORT ---
*NOTICE TO RECEIVING [employer] This information is strictly Confidential and protected under [place] law. [place] law prohibits you from making any further disclosure of this information unless further disclosure is expressly permitted by the written consent of the person to whom it pertains or is authorized by law. A general authorization for the release of medical or other information is not sufficient for this purpose. Hospital accepts no responsibility if the information is made available to any other person, INCLUDING THE PATIENT. Interpretation Summary * Name: REAGAN CORMIER Study Date: 08/18/2017 02:52 PM BP: 147/83 mmHg * Patient Location: C.2T\S\S231\S\1 HR: 83 * : 1945 (M/d/yyyy) Gender: Female Height: 63 in * Age: 72 yrs Ethnicity: CA Weight: 90 lb * Ordering Physician: Mauri Castellanos MD * Referring Physician: Effie Ngo * Performed By: Julee Jalloh * * Reason For Study: LBBB * BSA: 1.4 m2 * -- Conclusions -- * 1. Normal left ventricular size with low-normal systolic function. Estimated EF 55%. No definite regional wall motion abnormalities. Distal wall segments and apex not well visualized due to foreshortened images. Moderate concentric left ventricular hypertrophy. Type 1 diastolic dysfunction. * 2. No significant valvular abnormalities visualized. * 3. Technically difficult study. * 4. No significant change from prior study on 11/02/2016. Procedure Details * A complete two-dimensional transthoracic echocardiogram was performed (2D, M-mode, Doppler and color flow Doppler). * The study was technically difficult. * There were technical limitations due to patient'spoor positioning Left Ventricle * Normal left ventricular size with low-normal systolic function. Estimated EF 55%. No definite regional wall motion abnormalities. Distal wall segments and apex not well visualized due to foreshortened images. Moderate concentric left ventricular hypertrophy. Type 1 diastolic dysfunction. Right Ventricle * The right ventricle is normal in size and function. * The right ventricular systolic function is normal as assessed by tricuspid annular plane systolic excursion (TAPSE) (normal >1.5 cm). Atria * The left atrial size is normal. * Right atrial size is normal. * There is no evidence of atrial septal defect, but resolution does not allow assessment for a patent foramen ovale. Mitral Valve * The mitral valve leaflets appear normal. There is no evidence of stenosis, fluttering, or prolapse. * There is trace mitral regurgitation. Tricuspid Valve * The tricuspid valve is not well visualized. * Significant tricuspid regurgitation is absent. Aortic Valve * The aortic valve is trileaflet. * No hemodynamically significant valvular aortic stenosis. * No aortic regurgitation is present. Pulmonic Valve * The pulmonary valve is inadequately visualized, but the Doppler data is adequate for interpretation. * There is no pulmonic valvular stenosis. * There is no significant pulmonary regurgitation. Great Vessels * The aortic root is normal size. * Aortic arch of normal dimension. Pericardium/Pleural * There is no pericardial effusion. Great Vessels * Normal IVC size with mildly reduced inspiratory collapse. MMode 2D Measurements and Calculations IVSd 1.5 cm IVSs 1.9 cm LVIDd 3.8 cm LVIDs 2.8 cm LVPWd 1.4 cm LVPWs 1.7 cm IVS/LVPW 1.1 FS 25.9 % EDV(Teich) 62.5 ml ESV(Teich) 30.3 ml EF(Teich) 51.6 % EDV(cubed) 55.5 ml ESV(cubed) 22.6 ml EF(cubed) 59.3 % % IVS thick 27.5 % % LVPW thick 23.4 % LV mass(C)d 211.2 grams LV mass(C)dI 153.3 grams/m\S\2 LV mass(C)s 212.5 grams LV mass(C)sI 154.3 grams/m\S\2 SV(Teich) 32.3 ml SI(Teich) 23.4 ml/m\S\2 SV(cubed) 32.9 ml SI(cubed) 23.9 ml/m\S\2 Ao root diam 3.0 cm Ao root area 7.3 cm\S\2 ACS 1.3 cm LA dimension 2.4 cm asc Aorta Diam 3.0 cm LA/Ao 0.78 LVOT diam 1.9 cm LVOT area 3.0 cm\S\2 LVAd ap4 20.0 cm\S\2 LVLd ap4 6.2 cm EDV(MOD-sp4) 53.3 ml EDV(sp4-el) 54.9 ml LVAs ap4 11.2 cm\S\2 LVLs ap4 5.5 cm ESV(MOD-sp4) 20.9 ml ESV(sp4-el) 19.4 ml EF(MOD-sp4) 60.7 % EF(sp4-el) 64.7 % LVAd ap2 20.6 cm\S\2 LVLd ap2 6.8 cm EDV(MOD-sp2) 51.5 ml EDV(sp2-el) 52.9 ml LVAs ap2 12.3 cm\S\2 LVLs ap2 5.8 cm ESV(MOD-sp2) 22.7 ml ESV(sp2-el) 22.4 ml EF(MOD-sp2) 56.0 % EF(sp2-el) 57.6 % LVLd %diff 8.7 % EDV(MOD-bp) 53.3 ml LVLs %diff 4.2 % ESV(MOD-bp) 22.0 ml EF(MOD-bp) 58.6 % SV(MOD-sp4) 32.4 ml SI(MOD-sp4) 23.5 ml/m\S\2 SV(MOD-sp2) 28.8 ml SI(MOD-sp2) 20.9 ml/m\S\2 SV(MOD-bp) 31.2 ml SI(MOD-bp) 22.7 ml/m\S\2 SV(sp4-el) 35.5 ml SI(sp4-el) 25.8 ml/m\S\2 SV(sp2-el) 30.5 ml SI(sp2-el) 22.1 ml/m\S\2 Doppler Measurements and Calculations MV E max shannon 61.8 cm/sec MV A max shannon 75.1 cm/sec MV E/A 0.82 MV dec time 0.22 sec Ao V2 max 95.9 cm/sec Ao max PG 3.7 mmHg Ao max PG (full) 1.9 mmHg ANGIE(V,A) 2.1 cm\S\2 ANGIE(V,D) 2.1 cm\S\2 LV V1 max PG 1.8 mmHg LV V1 max 66.6 cm/sec PA V2 max 45.6 cm/sec PA max PG 0.83 mmHg
--- NOTE | 2017-08-18 19:57 | GASTROENTEROLOGY PROGRESS NOTE ---
DATE: 08/18/2017 GASTROENTEROLOGY INPATIENT PROGRESS NOTE SUBJECTIVE: Chart reviewed, patient examined. The patient underwent upper endoscopy and flexible sigmoidoscopy yesterday for abnormal CT findings as well as dysphagia. No samples were taken and no obvious inflammation was identified in the left colon, up to 30 cm and throughout the stomach. The patient does not report any dysphagia currently and reports that she has not had diarrhea. On further discussion, the patient describes a nearly 100 pound weight loss over the past several months. She feels that her appetite is poor. Although, she was a prior smoker, she currently does not smoke. She has a multitude of medical conditions and medications that she is taking. ALLERGIES: SHE IS ALLERGIC TO MORPHINE. PHYSICAL EXAMINATION: VITAL SIGNS: Today - blood pressure 122/79 and 97% on room air, heart rate 78, afebrile at 36.9, respirations 16. GENERAL: The patient is awake, alert and oriented x3. HEENT: Sclerae anicteric, conjunctivae moist. Oral mucosa moist. HEART: Normal S1, S2. LUNGS: Clear to auscultation without rales, rhonchi or wheezes. ABDOMEN: Soft, flat, nontender, nondistended with good bowel sounds. I do not appreciate abdominal bruits. There is no evidence of ascites or shifting dullness. EXTREMITIES: Without clubbing, cyanosis or edema. RECTAL: Deferred. LABORATORY STUDIES: Today show white count of 9.6, hemoglobin 11.2, platelets 296,000. Serum chemistry showed a potassium 4.1, normal sodium, BUN and creatinine are 5 and 0.16, random glucose 109 with calcium 7.5. Albumin is low at 1.9 as his total protein of 4.9. IMAGING STUDIES: Showed evidence of no significant abdominal pathology. The patient has a history of gastric surgery that she describes was for peptic ulcer disease and has had a partial gastrectomy. There is a suggestion of proctocolitis without evidence of bowel obstruction or perforation on CT scan a few days ago, although colitis was not identified endoscopically. IMPRESSION AND PLAN: Source of the patient's weight loss is unclear, but this is a profound pattern of weight change. It may be reasonable for the patient to consider a mesenteric Doppler to ensure that there is no vascular insufficiency that is leading to the patient's food avoidance and significant weight loss. I did briefly speak with the patient regarding her interest in some type of enteral tube feed and she is agreeable to this, particularly if it would help for improve her nourishment and stabilize her weight. It may be reasonable to consider naso gastric or enteric tube initially to see if she tolerates tube feeds and if this can improve her nourishment. If so, then consideration for a surgically placed J tube may be helpful. The patient is on many medications and some of these may be a source of the patient's lack of appetite and weight loss and may benefit from review and elimination. Dr. Barcenas will be covering this weekend. All questions answered for the patient. ZE
[2017-08-18] MEDS: BOOST BREEZE NUTRITION DRINK 1 BOX PO SCH (20:19)
[2017-08-18] MEDS: MIRTAZAPINE TAB 15 MG TAB PO SCH (20:20)
[2017-08-18] MEDS: AMITRIPTYLINE HCL 25 MG TAB PO SCH (20:20)
[2017-08-19] MEDS: METOPROLOL TARTRATE 1 MG/ML VIAL IV. SCH ×6 (00:11→20:20)
[2017-08-19] MEDS: D5W AND 1/2NSS + 20MEQ KCL 1,000 ML IV SCH ×2 (04:10→23:03)
[2017-08-19 04:59] VITALS: BP 136/91; PULSE 89; TEMP 36.5; O2SAT 99
[2017-08-19] MEDS: NYSTATIN SUSP 500,000 U/5 ML UDC PO SCH ×4 (07:15→23:03)
[2017-08-19] MEDS: CALCIUM CARBONATE 500 MG CHEWABLE PO PRN (07:17)
[2017-08-19] MEDS: CHOLECALCIFEROL 1000 INTER.UNIT TAB PO SCH ×3 (07:18→20:00)
[2017-08-19] MEDS: POTASSIUM CHLORIDE 20 MEQ TABCR PO SCH ×2 (07:18→20:00)
[2017-08-19] MEDS: TOPIRAMATE 25 MG TAB PO SCH ×2 (07:19→20:00)
[2017-08-19] MEDS: FLUCONAZOLE 100 MG TAB PO SCH (07:19)
[2017-08-19] MEDS: LANSOPRAZOLE SOLUTAB 30 MG PO SCH ×2 (07:20→20:00)
[2017-08-19] MEDS: MAGNESIUM OXIDE 400 MG TAB PO SCH (07:20)
[2017-08-19] MEDS: GABAPENTIN 800 MG TAB PO SCH ×3 (07:20→20:00)
[2017-08-19] MEDS: SUCRALFATE 1 GM/10 ML UDC PO SCH ×4 (07:21→23:03)
[2017-08-19] MEDS: FERROUS SULFATE 325 MG TAB PO SCH ×2 (07:22→17:00)
[2017-08-19] MEDS: MIDODRINE 2.5 MG TAB PO SCH ×3 (07:23→17:00)
[2017-08-19] MEDS: MULTIVITAMIN TAB PO SCH (07:24)
[2017-08-19] MEDS: BOOST BREEZE NUTRITION DRINK 1 BOX PO SCH ×2 (07:24→20:00)
[2017-08-19] MEDS: COLLAGENASE OINT 30 GM TUBE EXT SCH (07:25)
[2017-08-19] MEDS: CLOTRIMAZOLE/BETAMETHASONE CR 15 GM TUBE EXT SCH ×2 (07:27→20:00)
[2017-08-19] MEDS: HEPARIN SOD 5000 UNIT/0.5 ML CARP SQ SCH ×2 (07:30→23:05)
[2017-08-19 11:18] LABS: BUN/CREATININE RATIO 12.6 (10-20); CALCIUM 8.4 mg/dl (8.5-10.1); CREATININE 0.39 mg/dl (0.60-1.20); POTASSIUM 4.5 mmol/L (3.5-5.1)
[2017-08-19 12:00] VITALS: BP 158/96; PULSE 93; TEMP 37.5; O2SAT 97
--- NOTE | 2017-08-19 14:48 | Gastroenterology Progress Note ---
Progress Note Date of Service: Aug 19, 2017 Subjective Pt evaluation today including: conversation w/ patient, conversation w/ family (), physical exam, chart review, lab review, review of studies, review of inpatient medication list cc f/u abd pain HPI Pt states gets abd pain with eating so avoids food. EGD showed bridget en y anastomosis but no pathology to explain abd pain. CT A/P no obvious lesion to explain abd pain. The left colon thickening on CT was not seen on FS. She did have pancreas atrophy and atherosclerois of abd aorta on CT. Review of Systems Respiratory: No shortness of breath Cardiac: No chest pain Medications Current Inpatient Medications Medications (Trade) Dose Ordered Sig/Melvin Route Start Time Stop Time Status Last Admin Dose Admin Acetaminophen (Tylenol Tab) 650 mg Q4H PRN PO 08/15/17 16:30 09/14/17 16:29 08/18/17 14:03 650 MG Al Hydrox/Mg Hydrox/Simethicone (Maalox Max Susp) 15 ml Q4H PRN PO 08/15/17 16:30 09/14/17 16:29 Magnesium Hydroxide (Milk Of Magnesia Susp) 30 ml Q6H PRN PO 08/15/17 16:30 09/14/17 16:29 Polyethylene (Miralax Powder Packet) 17 gm DAILY PRN PO 08/15/17 17:15 09/14/17 17:14 Ondansetron HCl (Zofran Inj) 4 mg Q6H PRN IV 08/15/17 16:30 09/14/17 16:29 Heparin Sodium (Porcine) (Heparin Sq 5000 Unit/0.5ml) 5,000 unit Q12 SQ 08/15/17 21:00 09/14/17 20:59 08/19/17 07:30 5,000 UNIT Amitriptyline HCl (Elavil Tab) 75 mg HS PO 08/15/17 22:00 09/14/17 21:59 08/18/17 20:20 75 MG Bisacodyl (Dulcolax Supp) 10 mg DAILY PRN SC 08/15/17 16:30 09/14/17 16:29 Calcium Carbonate (Tums Chew Tab) 500 mg Q6H PRN PO 08/15/17 16:30 09/14/17 16:29 08/19/17 07:17 500 MG Cholecalciferol (Vitamin D Tab) 4,000 inter.unit TID PO 08/15/17 20:00 09/14/17 20:59 08/19/17 12:09 4,000 INTER.UNIT Betamethasone/ Clotrimazole (Lotrisone Crm) 1 appln BID EXT 08/15/17 20:00 09/14/17 20:59 08/19/17 07:27 1 APPLN Gabapentin (Neurontin Tab) 800 mg TID PO 08/15/17 20:00 09/14/17 19:59 08/19/17 12:09 800 MG Lorazepam (Ativan Tab) 0.5 mg TID PRN PO 08/15/17 16:30 09/14/17 16:29 Multivitamins (Multivitamin Tab) 1 tab DAILY PO 08/16/17 08:00 09/15/17 08:59 08/19/17 07:24 1 TAB Sumatriptan Succinate (Imitrex Tab) 100 mg UD PRN PO 08/15/17 16:30 09/14/17 16:29 08/16/17 20:04 100 MG Topiramate (Topamax Tab) 25 mg BID PO 08/15/17 20:00 09/14/17 20:59 08/19/17 07:19 25 MG Tramadol HCl (Ultram Tab) 50 mg BID PRN PO 08/15/17 16:30 09/14/17 16:29 08/17/17 19:14 50 MG Ferrous Sulfate (Feosol Tab) 325 mg BIDM PO 08/16/17 08:00 09/15/17 07:59 08/19/17 07:22 325 MG Magnesium Oxide (Mag-Ox Tab) 400 mg QAM PO 08/16/17 08:00 09/15/17 08:59 08/19/17 07:20 400 MG Midodrine (Proamatine Tab) 5 mg TID@, PO 08/16/17 08:00 09/15/17 07:59 08/19/17 12:09 5 MG Mirtazapine (Remeron Tab) 45 mg HS PO 08/15/17 22:00 09/14/17 21:59 08/18/17 20:20 45 MG Heparin Sodium (Porcine) (Heparin 100 Unit/ml 5ml Flush) 5 ml PRN PRN IV 08/16/17 01:45 09/15/17 01:44 08/16/17 09:03 5 ML Potassium Chloride (Klor-Con Tab) 20 meq BID PO 08/16/17 09:30 09/15/17 09:29 08/19/17 07:18 20 MEQ Potassium Chloride/Dextrose/ Sod Cl 1,000 ml @ 75 mls/hr [id number] IV 08/16/17 09:30 09/15/17 08:44 08/19/17 04:10 75 MLS/HR Sucralfate (Carafate Susp) 1 gm ACHS PO 08/16/17 11:00 09/15/17 10:59 08/19/17 12:06 1 GM Nystatin (Mycostatin Susp) 5 ml ACHS PO 08/16/17 11:00 08/26/17 10:59 08/19/17 12:06 5 ML Fluconazole (Diflucan Tab) 100 mg QAM PO 08/17/17 08:00 08/27/17 07:59 08/19/17 07:19 100 MG Lansoprazole (Prevacid Solutab) 30 mg BID PO 08/16/17 20:00 09/15/17 19:59 08/19/17 07:20 30 MG Collagenase (Santyl Oint) 1 appln DAILY EXT 08/16/17 16:30 09/15/17 16:29 08/19/17 07:25 1 APPLN Metoprolol Tartrate (Lopressor Iv) 2.5 mg Q4 IV. 08/18/17 04:00 09/17/17 03:59 08/19/17 12:07 2.5 MG Enteral Nutritional Formula (Boost Breeze Nutritional Drink) 1 box BID PO 08/18/17 21:00 09/17/17 20:59 08/19/17 07:24 1 BOX Objective Vital Signs Date Time Temp Pulse Resp B/P (MAP) Pulse Ox O2 Delivery O2 Flow Rate FiO2 08/19/17 14:07 36.5 89 18 99 08/19/17 12:07 72 158/96 08/19/17 12:00 37.5 93 18 158/96 (116) 97 Room Air 08/19/17 11:42 Room Air 08/19/17 08:00 Room Air 08/19/17 07:27 76 136/76 08/19/17 04:59 36.5 89 20 136/91 (106) 99 Room Air 08/19/17 04:31 Room Air 08/19/17 04:00 89 136/91 08/19/17 00:11 Room Air 08/19/17 00:11 78 122/79 08/18/17 23:50 36.6 93 20 117/76 (90) 95 Room Air 08/18/17 20:28 Room Air 08/18/17 20:18 78 122/79 08/18/17 19:02 36.9 78 16 122/79 (93) 97 Room Air 08/18/17 17:22 73 129/81 08/18/17 16:02 36.6 73 18 129/81 (97) 95 Room Air 08/18/17 16:00 Room Air Physical Exam General Appearance: WD/WN, no apparent distress Respiratory/Chest: lungs clear, no respiratory distress Cardiovascular: regular rate, rhythm Abdomen: normal bowel sounds, non tender, soft, no organomegaly Laboratory Results Last 24 Hours Test 08/19/17 10:43 Sodium Level 140 mmol/L Potassium Level 4.5 mmol/L Chloride Level 111 mmol/L Carbon Dioxide Level 22 mmol/L Anion Gap 8.0 mmol/L Blood Urea Nitrogen 5 mg/dl Creatinine 0.39 mg/dl Est Creatinine Clear Calc Drug Dose 86.9 ml/min Estimated GFR () 123.3 Estimated GFR (Non- 106.4 BUN/Creatinine Ratio 12.6 Random Glucose 152 mg/dl Calcium Level 8.4 mg/dl Assessment and Plan abd pain--occurs with eating. she is s/p jose, EGD and FS neg, Check fasting am cortisol for addisons, check mesenteric doppler for ischemia causing abd angina wt loss--food avoidance secondary to abd pain. She is agreeable to tube feed placement to see if she can tolerate that without pain so will order that. If she tolerates that then surgical J tube could be placed. Check TSH and cortisol also for metabolic reasons for pain diarrhea--cdiff and stool cx neg, if persists consider trial of pancreas enzymes (pancreas atrophy could indicate pancreatic insufficiency) chest pain with swallowing---esophagus normal on EGD. lung nodule--per hospitalist
--- NOTE | 2017-08-19 14:59 | Progress Note ---
Subjective Date of Service: Aug 19, 2017. Subjective pt is feeling somewhat ok, did tolerate oral feeding this am but did not care for the food choices, is being considered by GI medicine and considering enteral feedings Problem List Medical Problems: (1) Altered mental status Status: Acute (2) Altered mental status Status: Acute (3) Cellulitis Status: Acute (4) Cystitis Status: Acute (5) Dehydration Status: Acute (6) Dehydration Status: Acute (7) Diarrhea Status: Acute (8) Exacerbation of multiple sclerosis Status: Acute (9) Fall at home Status: Acute (10) Femur fracture Status: Acute (11) Fever Status: Acute (12) Fracture of right hip Status: Acute (13) Headache Status: Acute (14) Hypokalemia Status: Acute (15) Intractable pain Status: Acute (16) Intractable vomiting Status: Acute (17) Migraine Status: Acute (18) Migraine Status: Acute (19) Migraine Status: Acute (20) Migraine Status: Acute (21) Migraine Status: Acute (22) Migraine Status: Acute (23) Migraine Status: Acute (24) Migraine Status: Acute (25) Migraine Status: Acute (26) Migraine Status: Acute (27) Migraine headache Status: Acute (28) Pelvis fracture, right Status: Acute (29) Pneumonia Status: Acute (30) Pressure ulcer of right buttock Status: Acute (31) Proctocolitis Status: Acute (32) Sacral ulcer Status: Acute (33) Status post closed fracture of right hip Status: Acute (34) Tachycardia Status: Acute (35) Tachycardia Status: Acute (36) Tachycardia Status: Acute (37) UTI (urinary tract infection) Status: Acute (38) Weakness Status: Acute (39) Weakness Status: Acute (40) Weakness Status: Acute Review of Systems Constitutional: + weakness, + fatigue Cardiac: No chest pain, No edema Abdomen: + pain, + diarrhea, No nausea, No vomiting Neurologic: + memory loss, + weakness, + balance problems Psychiatric: + depression symptoms, No anxiety Objective Vital Signs Date Time Temp Pulse Resp B/P (MAP) Pulse Ox O2 Delivery O2 Flow Rate FiO2 08/19/17 07:27 76 136/76 08/19/17 04:59 36.5 89 20 136/91 (106) 99 Room Air 08/19/17 04:31 Room Air 08/19/17 04:00 89 136/91 08/19/17 00:11 Room Air 08/19/17 00:11 78 122/79 08/18/17 23:50 36.6 93 20 117/76 (90) 95 Room Air 08/18/17 20:28 Room Air 08/18/17 20:18 78 122/79 08/18/17 19:02 36.9 78 16 122/79 (93) 97 Room Air 08/18/17 17:22 73 129/81 08/18/17 16:02 36.6 73 18 129/81 (97) 95 Room Air 08/18/17 16:00 Room Air 08/18/17 12:00 Room Air 08/18/17 11:48 83 147/83 08/18/17 11:21 36.7 83 18 147/83 (104) 95 Room Air Physical Exam General Appearance: WD/WN, + mild distress Eyes: PERRL, EOMI Cardiovascular: regular rate, rhythm, no murmur Abdomen: normal bowel sounds, non tender, soft Extremities: no pedal edema, no calf tenderness Neurologic/Psychiatric: alert, oriented x 3 Laboratory Results Last 24 Hours Test 08/18/17 10:05 White Blood Count 9.62 K/uL Red Blood Count 3.55 M/uL Hemoglobin 11.2 g/dL Hematocrit 32.8 % Mean Corpuscular Volume 92.4 fL Mean Corpuscular Hemoglobin 31.5 pg Mean Corpuscular Hemoglobin Concent 34.1 g/dl RDW Standard Deviation 51.4 fL RDW Coefficient of Variation 15.0 % Platelet Count 296 K/uL Mean Platelet Volume 10.3 fL Sodium Level 142 mmol/L Potassium Level 4.1 mmol/L Chloride Level 113 mmol/L Carbon Dioxide Level 24 mmol/L Anion Gap 5.0 mmol/L Blood Urea Nitrogen 5 mg/dl Creatinine 0.16 mg/dl Est Creatinine Clear Calc Drug Dose 212.3 ml/min Estimated GFR () > 150.0 Estimated GFR (Non- 142.7 BUN/Creatinine Ratio 32.5 Random Glucose 109 mg/dl Calcium Level 7.5 mg/dl Magnesium Level 1.9 mg/dl Assessment and Plan 72yo female with odynophagia recent upper and lower scope without explanation of symptoms, had tachyarrhythmia overnight Rate Related LBBB will keep in tele and follow, cardiology does not feel is ischemic related and her exertional status is poor, she has had no recurrence will move off tele odynophagia - acute - thrush nystatin + diflucan -GI consult appreciated; no significant findings on upper and lower scopes, consideration for enteral feedings, will need to discuss watermelon inspector care especially in face of decline of late, pending gi angina and tsh cortisol workup PPI bid and carafate QID, speech feels more a esophageal motility issue but cannot perform swallowing study diarrhea, ?proctocolitis on CT - GI consult appreciated supportive care c. diff neg, stool cx neg severe protein calorie malnutrition - due to MS? pulmonary nodule will need follow up MS - noted. orthostasis - treated in past wtih midodrine, some associated LE edema also worsened with poor nutrition, negative doppler for DVT hypernatremia/ hypokalemia - resolved hypoglycemia - resolved neurogenic bladder - 2nd to MS - hill placed ford albicans UTI - diflucan DVT proph - SCDs; Continued [facility] stay due to: inadequate po fluid intake, inadequate oral pain control, multiple IV medications needed Discharge planning: uncertain
[2017-08-19 16:00] VITALS: O2SAT 99
--- NOTE | 2017-08-19 16:57 | DIAGNOSTIC IMAGING REPORT ---
KUB HISTORY: Status post placement of a feeding tube FEEDING TUBE OLACEMENT COMPARISON: KUB 03/24/2016. FINDINGS: The bowel gas pattern is non-obstructive. Surgical clips are seen within the right upper abdomen. Feeding tube has been placed with distal tip terminating the left of midline below the diaphragm suggesting positioning within the gastric body. Surgical suture material seen within the left upper abdomen. There is no organomegaly. Previously noted left-sided renal calculi are not well seen. Renal shadows are obscured by bowel gas. Imaged lung marcos are generally clear. Left pectoral [id number] catheter is noted. No pneumoperitoneum. Extensive postsurgical changes of the spine redemonstrated. IMPRESSION: 1. Feeding tube terminates within the expected region of the mid gastric body. 2. Nonobstructive bowel gas pattern. Electronically signed by: Dustin Johnson M.D. 08/19/2017 4:56 PM Dictated Date/Time: 08/19/2017 4:54 PM
[2017-08-19] MEDS ORDERED: FIBERSOURCE HN 1000ML BAG NG SCH ×2 (18:45)
[2017-08-19 20:16] VITALS: BP 128/84; PULSE 89; O2SAT 97
--- NOTE | 2017-08-19 22:20 | DIAGNOSTIC IMAGING REPORT ---
DUPLEX MESENTERIC HISTORY: 72 years-old Female abd pain with eating evaluate for mesenteric ischemia acute generalized abdominal pain. COMPARISON: CT 08/15/2017 TECHNIQUE: Multiple real-time sonographic images of the mesenteric arterial structures were obtained assessing grayscale appearance, color and spectral flow. FINDINGS: Peak systolic velocities were measured as below: Proximal aorta-53 cm/s. Celiac artery-164 cm/s. Hepatic artery-117 cm/s. Splenic artery-142 cm/s. Superior mesenteric artery-proximal portion of the vessel 85 cm/s; mid vessel 130 cm/s; distal vessel 129 cm/s VANE-88 cm/s No vessel occlusion or evidence of high-grade stenosis identified. IMPRESSION: No mesenteric arterial occlusion or high-grade stenosis identified. The above report was generated using voice recognition software. It may contain grammatical, syntax or spelling errors. Electronically signed by: Dustin Johnson M.D. 08/19/2017 10:19 PM Dictated Date/Time: 08/19/2017 10:13 PM
[2017-08-19] MEDS: AMITRIPTYLINE HCL 25 MG TAB PO SCH (23:04)
[2017-08-19] MEDS: MIRTAZAPINE TAB 15 MG TAB PO SCH (23:04)
[2017-08-20] VITALS (7 sets, daily range): BP systolic 117–149; BP diastolic 71–87; PULSE 98–120; TEMP 36.6–37.1; O2SAT 95–98
[2017-08-20] MEDS: METOPROLOL TARTRATE 1 MG/ML VIAL IV. SCH ×4 (00:52→12:08)
[2017-08-20] MEDS: SUCRALFATE 1 GM/10 ML UDC PO SCH ×4 (06:32→19:49)
[2017-08-20] MEDS: NYSTATIN SUSP 500,000 U/5 ML UDC PO SCH ×4 (06:32→19:50)
[2017-08-20] MEDS: D5W AND 1/2NSS + 20MEQ KCL 1,000 ML IV SCH (06:34)
[2017-08-20] MEDS ORDERED: FERROUS SULFATE 325 MG/7.4 ML UDP NG SCH (08:00)
[2017-08-20] MEDS ORDERED: POTASSIUM CHLORIDE 20 MEQ/15 ML UDC NG SCH (08:00)
[2017-08-20] MEDS ORDERED: MULTIVITAMINS W/MINERALS 15ML UDP PO SCH (08:00)
[2017-08-20] MEDS ORDERED: GABAPENTIN 250 MG/5 ML 470 ML BTL NG SCH (08:00)
[2017-08-20 08:02] LABS: HEMATOCRIT 37.9 % (37-47); MEAN CELL VOLUME 92.2 fL (80-100); MEAN CORPUSCULAR HEMOGLOBIN 30.9 pg (25-34); MEAN CORPUSCULAR HGB CONC 33.5 g/dl (32-36); MEAN PLATELET VOLUME 10.5 fL (7.4-10.4); PLATELET COUNT 328 K/uL (130-400); RED BLOOD COUNT 4.11 M/uL (4.2-5.4); WHITE BLOOD COUNT 10.99 K/uL (4.8-10.8)
[2017-08-20 08:10] LABS: BUN/CREATININE RATIO 17.4 (10-20); CALCIUM 8.3 mg/dl (8.5-10.1); CREATININE 0.23 mg/dl (0.60-1.20); POTASSIUM 3.9 mmol/L (3.5-5.1)
[2017-08-20 08:21] LABS: THYROID STIMULATING HORMONE 0.932 uIu/ml (0.300-4.500)
[2017-08-20] MEDS: COLLAGENASE OINT 30 GM TUBE EXT SCH (08:35)
[2017-08-20] MEDS: BOOST BREEZE NUTRITION DRINK 1 BOX PO SCH ×2 (08:37→19:47)
[2017-08-20] MEDS: TOPIRAMATE 25 MG TAB PO SCH ×2 (08:42→19:49)
[2017-08-20] MEDS: LANSOPRAZOLE SOLUTAB 30 MG PO SCH (08:42)
[2017-08-20] MEDS: MAGNESIUM OXIDE 400 MG TAB PO SCH (08:42)
[2017-08-20] MEDS: FLUCONAZOLE 100 MG TAB PO SCH (08:42)
[2017-08-20] MEDS: CHOLECALCIFEROL 1000 INTER.UNIT TAB PO SCH ×3 (08:42→19:50)
[2017-08-20] MEDS: MIDODRINE 2.5 MG TAB PO SCH ×3 (08:42→17:12)
[2017-08-20] MEDS: TRAMADOL HCL 50 MG TAB PO PRN (09:02)
[2017-08-20] MEDS: HEPARIN SOD 5000 UNIT/0.5 ML CARP SQ SCH ×2 (09:56→19:52)
[2017-08-20] MEDS: CLOTRIMAZOLE/BETAMETHASONE CR 15 GM TUBE EXT SCH ×2 (11:25→19:47)
--- NOTE | 2017-08-20 14:00 | Gastroenterology Progress Note ---
Progress Note Date of Service: Aug 20, 2017 Subjective Pt evaluation today including: conversation w/ patient, conversation w/ family (), physical exam, chart review, lab review, review of studies, review of inpatient medication list cc f/u wt loss, abd pain HPI no abd pain at present. Was up to 30 ml /hour of tube feeds when she inadvertently pulled out the NG tube so that is replaced with KUB pending. Last BM in chart yesterday 1600. Review of Systems Respiratory: + shortness of breath Cardiac: No chest pain Medications Current Inpatient Medications Medications (Trade) Dose Ordered Sig/Melvin Route Start Time Stop Time Status Last Admin Dose Admin Acetaminophen (Tylenol Tab) 650 mg Q4H PRN PO 08/15/17 16:30 09/14/17 16:29 08/18/17 14:03 650 MG Al Hydrox/Mg Hydrox/Simethicone (Maalox Max Susp) 15 ml Q4H PRN PO 08/15/17 16:30 09/14/17 16:29 Magnesium Hydroxide (Milk Of Magnesia Susp) 30 ml Q6H PRN PO 08/15/17 16:30 09/14/17 16:29 Polyethylene (Miralax Powder Packet) 17 gm DAILY PRN PO 08/15/17 17:15 09/14/17 17:14 Ondansetron HCl (Zofran Inj) 4 mg Q6H PRN IV 08/15/17 16:30 09/14/17 16:29 Heparin Sodium (Porcine) (Heparin Sq 5000 Unit/0.5ml) 5,000 unit Q12 SQ 08/15/17 21:00 09/14/17 20:59 08/20/17 09:56 5,000 UNIT Amitriptyline HCl (Elavil Tab) 75 mg HS PO 08/15/17 22:00 09/14/17 21:59 08/19/17 23:04 75 MG Bisacodyl (Dulcolax Supp) 10 mg DAILY PRN WI 08/15/17 16:30 09/14/17 16:29 Calcium Carbonate (Tums Chew Tab) 500 mg Q6H PRN PO 08/15/17 16:30 09/14/17 16:29 08/19/17 07:17 500 MG Cholecalciferol (Vitamin D Tab) 4,000 inter.unit TID PO 08/15/17 20:00 09/14/17 20:59 08/20/17 08:42 4,000 INTER.UNIT Betamethasone/ Clotrimazole (Lotrisone Crm) 1 appln BID EXT 08/15/17 20:00 09/14/17 20:59 08/19/17 07:27 1 APPLN Lorazepam (Ativan Tab) 0.5 mg TID PRN PO 08/15/17 16:30 09/14/17 16:29 Multivitamins (Multivitamin Tab) 1 tab DAILY PO 08/16/17 08:00 09/15/17 08:59 Future Hold 08/19/17 07:24 1 TAB Sumatriptan Succinate (Imitrex Tab) 100 mg UD PRN PO 08/15/17 16:30 09/14/17 16:29 08/16/17 20:04 100 MG Topiramate (Topamax Tab) 25 mg BID PO 08/15/17 20:00 09/14/17 20:59 08/20/17 08:42 25 MG Tramadol HCl (Ultram Tab) 50 mg BID PRN PO 08/15/17 16:30 09/14/17 16:29 08/20/17 09:02 50 MG Ferrous Sulfate (Feosol Tab) 325 mg BIDM PO 08/16/17 08:00 09/15/17 07:59 Future Hold 08/19/17 07:22 325 MG Magnesium Oxide (Mag-Ox Tab) 400 mg QAM PO 08/16/17 08:00 09/15/17 08:59 08/20/17 08:42 400 MG Midodrine (Proamatine Tab) 5 mg TID@,, PO 08/16/17 08:00 09/15/17 07:59 08/20/17 08:42 5 MG Mirtazapine (Remeron Tab) 45 mg HS PO 08/15/17 22:00 09/14/17 21:59 08/19/17 23:04 45 MG Heparin Sodium (Porcine) (Heparin 100 Unit/ml 5ml Flush) 5 ml PRN PRN IV 08/16/17 01:45 09/15/17 01:44 08/16/17 09:03 5 ML Potassium Chloride/Dextrose/ Sod Cl 1,000 ml @ 75 mls/hr [id number] IV 08/16/17 09:30 09/15/17 08:44 08/20/17 06:34 75 MLS/HR Sucralfate (Carafate Susp) 1 gm ACHS PO 08/16/17 11:00 09/15/17 10:59 08/20/17 06:32 1 GM Nystatin (Mycostatin Susp) 5 ml ACHS PO 08/16/17 11:00 08/26/17 10:59 08/20/17 06:32 5 ML Fluconazole (Diflucan Tab) 100 mg QAM PO 08/17/17 08:00 08/27/17 07:59 08/20/17 08:42 100 MG Lansoprazole (Prevacid Solutab) 30 mg BID PO 08/16/17 20:00 09/15/17 19:59 08/20/17 08:42 30 MG Collagenase (Santyl Oint) 1 appln DAILY EXT 08/16/17 16:30 09/15/17 16:29 08/20/17 08:35 1 APPLN Metoprolol Tartrate (Lopressor Iv) 2.5 mg Q4 IV. 08/18/17 04:00 09/17/17 03:59 08/20/17 12:08 2.5 MG Enteral Nutritional Formula (Boost Breeze Nutritional Drink) 1 box BID PO 08/18/17 21:00 09/17/17 20:59 08/19/17 07:24 1 BOX Enteral Nutritional Formula (Fibersource HN) 1,000 ml UD NG 08/19/17 18:45 09/18/17 18:44 08/19/17 23:06 1,000 ML Gabapentin (Neurontin) 800 mg TID NG 08/20/17 08:00 09/19/17 07:59 08/20/17 09:56 800 MG Potassium Chloride (Cinthia Ciel Elix) 20 meq BID NG 08/20/17 08:00 09/19/17 07:59 08/20/17 08:41 20 MEQ Ferrous Sulfate (Feosol Elix) 325 mg BIDM NG 08/20/17 08:00 09/19/17 07:59 08/20/17 08:41 325 MG Multivitamins Therapeutic (Cerovite Liquid) 15 ml QAM PO 08/20/17 08:00 09/19/17 07:59 08/20/17 08:41 15 ML Objective Vital Signs Date Time Temp Pulse Resp B/P (MAP) Pulse Ox O2 Delivery O2 Flow Rate FiO2 08/20/17 12:08 100 135/82 08/20/17 10:42 110 97 08/20/17 08:27 110 137/87 08/20/17 08:23 36.8 111 15 125/81 (96) 97 Room Air 08/20/17 08:15 Room Air 08/20/17 04:26 112 139/84 08/20/17 04:00 37.1 112 18 139/84 (102) 98 Room Air 08/20/17 00:52 120 149/87 08/20/17 00:30 Room Air 08/20/17 00:05 36.8 120 18 149/87 (107) 95 Room Air 08/19/17 20:20 89 128/84 08/19/17 20:16 89 128/84 (99) 97 Room Air 08/19/17 16:00 99 Room Air 08/19/17 15:37 86 146/86 08/19/17 14:07 36.5 89 18 99 Physical Exam General Appearance: WD/WN, no apparent distress Respiratory/Chest: lungs clear, no respiratory distress Cardiovascular: regular rate, rhythm Abdomen: normal bowel sounds, non tender, soft, no organomegaly Laboratory Results Last 24 Hours Test 08/20/17 07:26 08/20/17 11:44 White Blood Count 10.99 K/uL Red Blood Count 4.11 M/uL Hemoglobin 12.7 g/dL Hematocrit 37.9 % Mean Corpuscular Volume 92.2 fL Mean Corpuscular Hemoglobin 30.9 pg Mean Corpuscular Hemoglobin Concent 33.5 g/dl RDW Standard Deviation 50.9 fL RDW Coefficient of Variation 15.0 % Platelet Count 328 K/uL Mean Platelet Volume 10.5 fL Sodium Level 139 mmol/L Potassium Level 3.9 mmol/L Chloride Level 108 mmol/L Carbon Dioxide Level 25 mmol/L Anion Gap 6.0 mmol/L Blood Urea Nitrogen 4 mg/dl Creatinine 0.23 mg/dl Est Creatinine Clear Calc Drug Dose 147.3 ml/min Estimated GFR () 146.7 Estimated GFR (Non- 126.6 BUN/Creatinine Ratio 17.4 Random Glucose 139 mg/dl Calcium Level 8.3 mg/dl Thyroid Stimulating Hormone (TSH) 0.932 uIu/ml Cortisol AM Sample 20.50 mcg/dl Bedside Glucose 126 mg/dl Assessment and Plan abd pain--occurs with eating. she is s/p jose, EGD and FS neg, TSH, cortisol and mesenteric doppler negative. Will see if she tolerates NG feedings. wt loss--food avoidance secondary to abd pain. She can take clear liquids po and her meds then give her all her caloric needs with tube feeds. diarrhea--cdiff and stool cx neg, if persists consider trial of pancreas enzymes (pancreas atrophy could indicate pancreatic insufficiency) chest pain with swallowing---esophagus normal on EGD. lung nodule--per hospitalist
--- NOTE | 2017-08-20 16:09 | DIAGNOSTIC IMAGING REPORT ---
KUB CLINICAL HISTORY: 72 years-old Female presenting with Corsafe placement. TECHNIQUE: Single supine view of the abdomen was obtained. COMPARISON: 08/19/2017. FINDINGS: The weighted feeding catheter projects over the gastric body, unchanged in position from prior. Nonobstructive bowel gas pattern. No gross pneumoperitoneum. Cholecystectomy clips noted. Partially visualized tip of the left subclavian Mediport. Postsurgical changes of the spine. IMPRESSION: 1. Weighted feeding catheter remains in the proximal stomach. Advancement recommended. Electronically signed by: Ho Shafer M.D. 08/20/2017 4:08 PM Dictated Date/Time: 08/20/2017 4:07 PM
--- NOTE | 2017-08-20 16:12 | Progress Note ---
Subjective Date of Service: Aug 20, 2017. Subjective pt slightly pulled core safe and it was re placed, it very much irritates her nose and she would rather not have it, at times she is not wanting to have the core safe but others she states she is not ready to give up and move to palliative care, initial eval from GI does not support intestinal ischemia we tried to have discussion with her and and no defined decision, it seems however that she would not like to have tube feeding for the rest of her life Problem List Medical Problems: (1) Altered mental status Status: Acute (2) Altered mental status Status: Acute (3) Cellulitis Status: Acute (4) Cystitis Status: Acute (5) Dehydration Status: Acute (6) Dehydration Status: Acute (7) Diarrhea Status: Acute (8) Exacerbation of multiple sclerosis Status: Acute (9) Fall at home Status: Acute (10) Femur fracture Status: Acute (11) Fever Status: Acute (12) Fracture of right hip Status: Acute (13) Headache Status: Acute (14) Hypokalemia Status: Acute (15) Intractable pain Status: Acute (16) Intractable vomiting Status: Acute (17) Migraine Status: Acute (18) Migraine Status: Acute (19) Migraine Status: Acute (20) Migraine Status: Acute (21) Migraine Status: Acute (22) Migraine Status: Acute (23) Migraine Status: Acute (24) Migraine Status: Acute (25) Migraine Status: Acute (26) Migraine Status: Acute (27) Migraine headache Status: Acute (28) Pelvis fracture, right Status: Acute (29) Pneumonia Status: Acute (30) Pressure ulcer of right buttock Status: Acute (31) Proctocolitis Status: Acute (32) Sacral ulcer Status: Acute (33) Status post closed fracture of right hip Status: Acute (34) Tachycardia Status: Acute (35) Tachycardia Status: Acute (36) Tachycardia Status: Acute (37) UTI (urinary tract infection) Status: Acute (38) Weakness Status: Acute (39) Weakness Status: Acute (40) Weakness Status: Acute Review of Systems Constitutional: + weakness, + fatigue, No fever, No chills Cardiac: No chest pain, No edema Abdomen: + pain, No nausea, No vomiting Objective Vital Signs Date Time Temp Pulse Resp B/P (MAP) Pulse Ox O2 Delivery O2 Flow Rate FiO2 08/20/17 15:37 36.6 98 16 128/78 (95) 98 Room Air 08/20/17 12:08 100 135/82 08/20/17 10:42 110 97 08/20/17 08:27 110 137/87 08/20/17 08:23 36.8 111 15 125/81 (96) 97 Room Air 08/20/17 08:15 Room Air 08/20/17 04:26 112 139/84 08/20/17 04:00 37.1 112 18 139/84 (102) 98 Room Air 08/20/17 00:52 120 149/87 08/20/17 00:30 Room Air 08/20/17 00:05 36.8 120 18 149/87 (107) 95 Room Air 08/19/17 20:20 89 128/84 08/19/17 20:16 89 128/84 (99) 97 Room Air Physical Exam General Appearance: + mild distress, + thin Respiratory/Chest: chest non-tender, lungs clear, normal breath sounds Cardiovascular: regular rate, rhythm, no murmur Abdomen: soft, + tenderness Extremities: no pedal edema, no calf tenderness Laboratory Results Last 24 Hours Test 08/20/17 07:26 08/20/17 11:44 White Blood Count 10.99 K/uL Red Blood Count 4.11 M/uL Hemoglobin 12.7 g/dL Hematocrit 37.9 % Mean Corpuscular Volume 92.2 fL Mean Corpuscular Hemoglobin 30.9 pg Mean Corpuscular Hemoglobin Concent 33.5 g/dl RDW Standard Deviation 50.9 fL RDW Coefficient of Variation 15.0 % Platelet Count 328 K/uL Mean Platelet Volume 10.5 fL Sodium Level 139 mmol/L Potassium Level 3.9 mmol/L Chloride Level 108 mmol/L Carbon Dioxide Level 25 mmol/L Anion Gap 6.0 mmol/L Blood Urea Nitrogen 4 mg/dl Creatinine 0.23 mg/dl Est Creatinine Clear Calc Drug Dose 147.3 ml/min Estimated GFR () 146.7 Estimated GFR (Non- 126.6 BUN/Creatinine Ratio 17.4 Random Glucose 139 mg/dl Calcium Level 8.3 mg/dl Thyroid Stimulating Hormone (TSH) 0.932 uIu/ml Cortisol AM Sample 20.50 mcg/dl Bedside Glucose 126 mg/dl Assessment and Plan 72yo female with odynophagia recent upper and lower scope without explanation of symptoms no further tachyarrythmia, moved to floor 08/19 Rate Related LBBB will keep in tele and follow, cardiology does not feel is ischemic related and her exertional status is poor, she has had no recurrence will move off tele odynophagia - acute - thrush nystatin + diflucan -GI consult appreciated; no significant findings on upper and lower scopes, GI med started consideration for enteral feedings, did discuss half-way care especially in face of decline of late, seems to understand that symptoms may be difficult to aleve, and may be nearing comfort measures, pt herself is wavering between comfort and treatment, will continue to discuss and involve palliative care PPI bid and carafate QID, speech feels more a esophageal motility issue but cannot perform swallowing study tsh and cortisol normal diarrhea, ?proctocolitis on CT -mild and persistent supportive care c. diff neg, stool cx neg severe protein calorie malnutrition - due to MS? started on core safe feeding with oral intake allowed pulmonary nodule will need follow up MS - noted. does not seem to be in flare orthostasis - treated in past wtih midodrine pt does not move from bed so no postural hypotension, in the past some associated LE edema with med, negative doppler for DVT hypernatremia/ hypokalemia - resolved hypoglycemia - resolved neurogenic bladder - 2nd to MS - hill placed ford albicans UTI - diflucan DVT proph - SCDs; Continued [facility] stay due to: inadequate po fluid intake, inadequate oral pain control, multiple IV medications needed Discharge planning: uncertain
[2017-08-20] MEDS: FERROUS SULFATE 325 MG TAB PO SCH (17:12)
[2017-08-20] MEDS: CARVEDILOL 3.125 MG TAB PO SCH (19:48)
[2017-08-20] MEDS: POTASSIUM CHLORIDE 20 MEQ TABCR PO SCH (19:48)
[2017-08-20] MEDS: GABAPENTIN 800 MG TAB PO SCH (19:49)
[2017-08-20] MEDS: MIRTAZAPINE TAB 15 MG TAB PO SCH (19:51)
[2017-08-20] MEDS: AMITRIPTYLINE HCL 25 MG TAB PO SCH (19:51)
[2017-08-21 00:55] VITALS: O2SAT 98
[2017-08-21] MEDS: TRAMADOL HCL 50 MG TAB PO PRN (06:13)
[2017-08-21] MEDS: NYSTATIN SUSP 500,000 U/5 ML UDC PO SCH ×4 (06:13→20:17)
[2017-08-21] MEDS: SUCRALFATE 1 GM/10 ML UDC PO SCH ×4 (06:13→20:16)
[2017-08-21] MEDS: BOOST BREEZE NUTRITION DRINK 1 BOX PO SCH ×2 (08:00→20:00)
[2017-08-21 08:05] VITALS: BP 138/91; PULSE 108; TEMP 36.9; O2SAT 97
[2017-08-21] MEDS: CHOLECALCIFEROL 1000 INTER.UNIT TAB PO SCH ×3 (08:22→20:15)
[2017-08-21] MEDS: MULTIVITAMIN TAB PO SCH (08:23)
[2017-08-21] MEDS: POTASSIUM CHLORIDE 20 MEQ TABCR PO SCH ×2 (08:23→20:18)
[2017-08-21] MEDS: GABAPENTIN 800 MG TAB PO SCH ×3 (08:23→20:16)
[2017-08-21] MEDS: FERROUS SULFATE 325 MG TAB PO SCH ×2 (08:24→17:46)
[2017-08-21] MEDS: MIDODRINE 2.5 MG TAB PO SCH ×3 (08:24→17:46)
[2017-08-21] MEDS: MAGNESIUM OXIDE 400 MG TAB PO SCH (08:24)
[2017-08-21] MEDS: CARVEDILOL 3.125 MG TAB PO SCH ×2 (08:24→20:17)
[2017-08-21] MEDS: FLUCONAZOLE 100 MG TAB PO SCH (08:25)
[2017-08-21] MEDS: CLOTRIMAZOLE/BETAMETHASONE CR 15 GM TUBE EXT SCH ×2 (08:25→20:00)
[2017-08-21] MEDS: COLLAGENASE OINT 30 GM TUBE EXT SCH (08:25)
[2017-08-21] MEDS: TOPIRAMATE 25 MG TAB PO SCH ×2 (08:26→20:16)
[2017-08-21] MEDS: HEPARIN SOD 5000 UNIT/0.5 ML CARP SQ SCH ×2 (08:27→20:19)
[2017-08-21] MEDS: CALCIUM CARBONATE 500 MG CHEWABLE PO PRN (08:32)
--- NOTE | 2017-08-21 12:40 | Gastroenterology Progress Note ---
Progress Note Date of Service: Aug 21, 2017 Subjective Pt evaluation today including: conversation w/ patient, physical exam, chart review, lab review, review of studies, review of inpatient medication list cc f/u abd pain HPI Pt with abd pain this am seemingly improved post given Tums. Tube feeds at 45 ml/hour she seems to be tolerating. She states she does not feel constipated. Review of Systems Respiratory: No shortness of breath Cardiac: No chest pain Medications Current Inpatient Medications Medications (Trade) Dose Ordered Sig/Melvin Route Start Time Stop Time Status Last Admin Dose Admin Acetaminophen (Tylenol Tab) 650 mg Q4H PRN PO 08/15/17 16:30 09/14/17 16:29 08/18/17 14:03 650 MG Al Hydrox/Mg Hydrox/Simethicone (Maalox Max Susp) 15 ml Q4H PRN PO 08/15/17 16:30 09/14/17 16:29 Magnesium Hydroxide (Milk Of Magnesia Susp) 30 ml Q6H PRN PO 08/15/17 16:30 09/14/17 16:29 Polyethylene (Miralax Powder Packet) 17 gm DAILY PRN PO 08/15/17 17:15 09/14/17 17:14 Ondansetron HCl (Zofran Inj) 4 mg Q6H PRN IV 08/15/17 16:30 09/14/17 16:29 Heparin Sodium (Porcine) (Heparin Sq 5000 Unit/0.5ml) 5,000 unit Q12 SQ 08/15/17 21:00 09/14/17 20:59 08/21/17 08:27 5,000 UNIT Amitriptyline HCl (Elavil Tab) 75 mg HS PO 08/15/17 22:00 09/14/17 21:59 08/20/17 19:51 75 MG Bisacodyl (Dulcolax Supp) [address] 08/15/17 16:30 09/14/17 16:29 Calcium Carbonate (Tums Chew Tab) 500 mg Q6H PRN PO 08/15/17 16:30 09/14/17 16:29 08/21/17 08:32 500 MG Cholecalciferol (Vitamin D Tab) 4,000 inter.unit TID PO 08/15/17 20:00 09/14/17 20:59 08/21/17 08:22 4,000 INTER.UNIT Betamethasone/ Clotrimazole (Lotrisone Crm) 1 appln BID EXT 08/15/17 20:00 09/14/17 20:59 08/21/17 08:25 1 APPLN Lorazepam (Ativan Tab) 0.5 mg TID PRN PO 08/15/17 16:30 09/14/17 16:29 Multivitamins (Multivitamin Tab) 1 tab DAILY PO 08/16/17 08:00 09/15/17 08:59 Future hold 08/21/17 08:23 1 TAB Sumatriptan Succinate (Imitrex Tab) 100 mg UD PRN PO 08/15/17 16:30 09/14/17 16:29 08/16/17 20:04 100 MG Topiramate (Topamax Tab) 25 mg BID PO 08/15/17 20:00 09/14/17 20:59 08/21/17 08:26 25 MG Tramadol HCl (Ultram Tab) 50 mg BID PRN PO 08/15/17 16:30 09/14/17 16:29 08/21/17 06:13 50 MG Ferrous Sulfate (Feosol Tab) 325 mg BIDM PO 08/16/17 08:00 09/15/17 07:59 Future hold 08/21/17 08:24 325 MG Magnesium Oxide (Mag-Ox Tab) 400 mg QAM PO 08/16/17 08:00 09/15/17 08:59 08/21/17 08:24 400 MG Midodrine (Proamatine Tab) 5 mg TID@,,17 PO 08/16/17 08:00 09/15/17 07:59 08/21/17 08:24 5 MG Mirtazapine (Remeron Tab) 45 mg HS PO 08/15/17 22:00 09/14/17 21:59 08/20/17 19:51 45 MG Heparin Sodium (Porcine) (Heparin 100 Unit/ml 5ml Flush) 5 ml PRN PRN IV 08/16/17 01:45 09/15/17 01:44 08/21/17 10:18 5 ML Sucralfate (Carafate Susp) 1 gm ACHS PO 08/16/17 11:00 09/15/17 10:59 08/21/17 06:13 1 GM Nystatin (Mycostatin Susp) 5 ml ACHS PO 08/16/17 11:00 08/26/17 10:59 08/21/17 06:13 5 ML Fluconazole (Diflucan Tab) 100 mg QAM PO 08/17/17 08:00 08/27/17 07:59 08/21/17 08:25 100 MG Collagenase (Santyl Oint) 1 appln DAILY EXT 08/16/17 16:30 09/15/17 16:29 08/21/17 08:25 1 APPLN Enteral Nutritional Formula (Boost Breeze Nutritional Drink) 1 box BID PO 08/18/17 21:00 09/17/17 20:59 08/19/17 07:24 1 BOX Enteral Nutritional Formula (Fibersource HN) 1,000 ml UD NG 08/19/17 18:45 09/18/17 18:44 08/19/17 23:06 1,000 ML Potassium Chloride (Klor-Con Tab) 20 meq BID PO 08/20/17 20:00 09/19/17 19:59 08/21/17 08:23 20 MEQ Gabapentin (Neurontin Tab) 800 mg TID PO 08/20/17 20:00 09/19/17 19:59 08/21/17 08:23 800 MG Carvedilol (Coreg Tab) 3.125 mg BID PO 08/20/17 20:00 09/19/17 19:59 08/21/17 08:24 3.125 MG Objective Vital Signs Date Time Temp Pulse Resp B/P (MAP) Pulse Ox O2 Delivery O2 Flow Rate FiO2 08/21/17 08:05 36.9 108 22 138/91 (107) 97 Room Air 08/21/17 00:55 98 Room Air 08/20/17 23:38 37.1 109 20 117/71 (86) 96 Room Air 08/20/17 20:00 98 Room Air 08/20/17 16:15 Room Air 08/20/17 15:37 36.6 98 16 128/78 (95) 98 Room Air Physical Exam General Appearance: WD/WN, no apparent distress Respiratory/Chest: lungs clear, no respiratory distress Cardiovascular: no murmur Abdomen: normal bowel sounds, soft, no organomegaly, + pertinent finding ( epigastric guarding but no rebound. ) Laboratory Results Last 24 Hours Test 08/20/17 18:40 08/20/17 23:45 08/21/17 11:26 Bedside Glucose 91 mg/dl 112 mg/dl 93 mg/dl Assessment and Plan abd pain--occurs with eating. she is s/p jose, EGD Jakub en Y otherwis neg and FS neg, TSH, cortisol and mesenteric doppler negative. Tolerating NG feedings but at this point she is not wanting a permanent feeding tube. Discussed with DR David and palliative care consult ordered. She is ok keeping the NG feeding going for now. Add PPI to meds in case acid reflux contributing. wt loss--food avoidance secondary to abd pain. She can take clear liquids po and her meds then give her all her caloric needs with tube feeds. diarrhea--cdiff and stool cx neg, if persists consider trial of pancreas enzymes (pancreas atrophy could indicate pancreatic insufficiency) chest pain with swallowing---esophagus normal on EGD. lung nodule--per hospitalist
[2017-08-21 15:01] VITALS: BP 112/76; PULSE 88; TEMP 37.1; O2SAT 96
--- NOTE | 2017-08-21 15:24 | Progress Note ---
Subjective Date of Service: Aug 21, 2017. Subjective upon walking into the room the pt stated" get this tube out" I reasked her decision regarding tube feeding support and possible peg tube, she stated to me that she did not want that, I called her and he supports her decision. He also agrees to begin discussion with Palliative care for future planning Problem List Medical Problems: (1) Altered mental status Status: Acute (2) Altered mental status Status: Acute (3) Cellulitis Status: Acute (4) Cystitis Status: Acute (5) Dehydration Status: Acute (6) Dehydration Status: Acute (7) Diarrhea Status: Acute (8) Exacerbation of multiple sclerosis Status: Acute (9) Fall at home Status: Acute (10) Femur fracture Status: Acute (11) Fever Status: Acute (12) Fracture of right hip Status: Acute (13) Headache Status: Acute (14) Hypokalemia Status: Acute (15) Intractable pain Status: Acute (16) Intractable vomiting Status: Acute (17) Migraine Status: Acute (18) Migraine Status: Acute (19) Migraine Status: Acute (20) Migraine Status: Acute (21) Migraine Status: Acute (22) Migraine Status: Acute (23) Migraine Status: Acute (24) Migraine Status: Acute (25) Migraine Status: Acute (26) Migraine Status: Acute (27) Migraine headache Status: Acute (28) Pelvis fracture, right Status: Acute (29) Pneumonia Status: Acute (30) Pressure ulcer of right buttock Status: Acute (31) Proctocolitis Status: Acute (32) Sacral ulcer Status: Acute (33) Status post closed fracture of right hip Status: Acute (34) Tachycardia Status: Acute (35) Tachycardia Status: Acute (36) Tachycardia Status: Acute (37) UTI (urinary tract infection) Status: Acute (38) Weakness Status: Acute (39) Weakness Status: Acute (40) Weakness Status: Acute Review of Systems Constitutional: + weakness, + fatigue Respiratory: No cough, No sputum Cardiac: No chest pain, No edema Abdomen: + pain, + nausea, + problem reported (pain with eating) Musculoskeletal: No joint pain, No muscle pain Psychiatric: + depression symptoms, No anxiety Objective Vital Signs Date Time Temp Pulse Resp B/P (MAP) Pulse Ox O2 Delivery O2 Flow Rate FiO2 08/21/17 15:01 37.1 88 18 112/76 (88) 96 Room Air 08/21/17 08:05 36.9 108 22 138/91 (107) 97 Room Air 08/21/17 00:55 98 Room Air 08/20/17 23:38 37.1 109 20 117/71 (86) 96 Room Air 08/20/17 20:00 98 Room Air 08/20/17 16:15 Room Air 08/20/17 15:37 36.6 98 16 128/78 (95) 98 Room Air Physical Exam General Appearance: + mild distress, + thin Eyes: PERRL, EOMI Respiratory/Chest: chest non-tender, lungs clear, normal breath sounds Cardiovascular: regular rate, rhythm, no murmur Abdomen: normal bowel sounds, soft Extremities: no pedal edema, no calf tenderness Neurologic/Psychiatric: alert, oriented x 3 (at times) Laboratory Results Last 24 Hours Test 08/20/17 18:40 08/20/17 23:45 08/21/17 11:26 Bedside Glucose 91 mg/dl 112 mg/dl 93 mg/dl Assessment and Plan 72yo female with odynophagia recent upper and lower scope without explanation of symptoms no further tachyarrhythmia, moved to floor 08/19 no further issues Rate Related LBBB will keep in tele and follow, cardiology does not feel is ischemic related and her exertional status is poor, she has had no recurrence will move off tele odynophagia - acute - thrush nystatin + diflucan -GI consult appreciated; no significant findings on upper and lower scopes, GI med started consideration for enteral feedings, did discuss long term care administrator care especially in face of decline of late, seems to understand that symptoms may be difficult to aleve, and may be nearing comfort measures, pt herself is wavering between comfort and treatment, pt now does not want tube beedings and will agree to discuss and involve palliative care PPI bid and carafate QID, speech feels more a esophageal motility issue but cannot perform swallowing study tsh and cortisol normal diarrhea, proctocolitis on CT resolving continue supportive care c. diff neg, stool cx neg severe protein calorie malnutrition - due to MS? does not want augmented tube feeds, will continue po support pulmonary nodule will need follow up, unless agrees to comfort care MS - noted. does not seem to be in flare, but cannot exclude from her primary symptom origin orthostasis - treated with midodrine pt does not move from bed so no postural hypotension, LE edema with med, negative doppler for DVT hypernatremia/ hypokalemia - resolved hypoglycemia - resolved neurogenic bladder - 2nd to MS - Vera placed ford albicans UTI - diflucan DVT proph - SCDs; Continued [facility] stay due to: inadequate po fluid intake, inadequate oral pain control, multiple IV medications needed Discharge planning: uncertain
--- NOTE | 2017-08-21 15:44 | Palliative Care Progress Note ---
Palliative Care Progress Note Date of Service Aug 21, 2017. Subjective Consult received. Met with patient in room 414- she would prefer to meet when is here. I spoke with Melvin on phone with patient's permission, waiting for him to decide on time to meet tomorrow. Formal consult to follow.
[2017-08-21] MEDS: AMITRIPTYLINE HCL 25 MG TAB PO SCH (20:15)
[2017-08-21] MEDS: MIRTAZAPINE TAB 15 MG TAB PO SCH (20:16)
[2017-08-21] MEDS: PANTOprazole SOD 40 MG TAB PO SCH (20:18)
[2017-08-21 22:00] VITALS: O2SAT 98
[2017-08-22 00:19] VITALS: BP 118/78; PULSE 110; TEMP 36.5; O2SAT 91
[2017-08-22 00:40] VITALS: O2SAT 98
[2017-08-22 06:02] LABS: MEAN CELL VOLUME 93.9 fL (80-100); MEAN CORPUSCULAR HEMOGLOBIN 31.5 pg (25-34); MEAN CORPUSCULAR HGB CONC 33.5 g/dl (32-36); MEAN PLATELET VOLUME 10.4 fL (7.4-10.4); PLATELET COUNT 293 K/uL (130-400); RED BLOOD COUNT 3.62 M/uL (4.2-5.4); WHITE BLOOD COUNT 12.08 K/uL (4.8-10.8)
[2017-08-22 06:36] LABS: BLOOD UREA NITROGEN 11 mg/dl (7-18); BUN/CREATININE RATIO 52.7 (10-20); CALCIUM 8.4 mg/dl (8.5-10.1); CARBON DIOXIDE 27 mmol/L (21-32); CHLORIDE 110 mmol/L (98-107); GLUCOSE 78 mg/dl (70-99); POTASSIUM 4.4 mmol/L (3.5-5.1); SODIUM 142 mmol/L (136-145)
[2017-08-22] MEDS: SUCRALFATE 1 GM/10 ML UDC PO SCH ×4 (06:45→21:38)
[2017-08-22] MEDS: NYSTATIN SUSP 500,000 U/5 ML UDC PO SCH ×4 (06:45→21:35)
[2017-08-22] MEDS: CLOTRIMAZOLE/BETAMETHASONE CR 15 GM TUBE EXT SCH ×2 (07:08→20:00)
[2017-08-22 08:08] VITALS: BP 124/82; PULSE 88; TEMP 36.7; O2SAT 97
[2017-08-22] MEDS: PANTOprazole SOD 40 MG TAB PO SCH ×2 (08:32→21:36)
[2017-08-22] MEDS: MAGNESIUM OXIDE 400 MG TAB PO SCH (08:32)
[2017-08-22] MEDS: CALCIUM CARBONATE 500 MG CHEWABLE PO PRN ×2 (08:32→13:55)
[2017-08-22] MEDS: CARVEDILOL 3.125 MG TAB PO SCH ×2 (08:32→21:38)
[2017-08-22] MEDS: GABAPENTIN 800 MG TAB PO SCH ×3 (08:32→21:36)
[2017-08-22] MEDS: MIDODRINE 2.5 MG TAB PO SCH ×3 (08:32→16:57)
[2017-08-22] MEDS: TOPIRAMATE 25 MG TAB PO SCH ×2 (08:33→21:37)
[2017-08-22] MEDS: POTASSIUM CHLORIDE 20 MEQ TABCR PO SCH ×2 (08:33→21:36)
[2017-08-22] MEDS: CHOLECALCIFEROL 1000 INTER.UNIT TAB PO SCH ×3 (08:33→21:36)
[2017-08-22] MEDS: FLUCONAZOLE 100 MG TAB PO SCH (08:33)
[2017-08-22] MEDS: FERROUS SULFATE 325 MG TAB PO SCH ×2 (08:33→16:56)
[2017-08-22] MEDS: COLLAGENASE OINT 30 GM TUBE EXT SCH (08:34)
[2017-08-22] MEDS: MULTIVITAMIN TAB PO SCH (08:34)
[2017-08-22] MEDS: BOOST BREEZE NUTRITION DRINK 1 BOX PO SCH ×2 (08:34→20:00)
[2017-08-22] MEDS: HEPARIN SOD 5000 UNIT/0.5 ML CARP SQ SCH ×2 (08:38→21:47)
--- NOTE | 2017-08-22 11:28 | Palliative Care Consultation ---
Consultation Date of Consultation: Aug 22, 2017. Requesting Physician: Dr. David Attending Physician: Dr. David Reason for Consultation: Goals of care History of Present Illness This 72 year old female with PMH advanced multiple sclerosis, htn, depression, anxiety, PUD, GERD, and others listed below, presented to the ED a week ago with c/o weakness, diarrhea, odynophagia, and weight loss. She c/o pain in her chest that is midsternal and is directly related to swallowing solid foods and cold liquids. She underwent EGD which showed no cause for the odyno/dysphagia. She did have some thrush that she was treated for, it is now improved. The pain with swallowing persists. However, nurses have been giving patient TUMS which she states takes the pain away. Given patient's weight loss and inability to meet nutritional requirements, a coresafe feeding tube was placed over the weekend and enteral nutrition started. There have been several talks with patient about the possibility of placing a permanent PEG tube. Patient has has gone back and forth several times, but keeps stating that she does not want a permanent tube. Yesterday she asked for the NGT to be removed as it was incredibly uncomfortable for her. Palliative care consulted to assist with establishing goals of care. I met with the patient and her , Melvin, in room [address] David and Dr[address] Jean. Past Medical/Surgical History Medical History: as above Migraine Sepsis Hysterectomy Partial gastrectomy Social History Smoking Status: Former Smoker History of Alcohol Use: No Drug Use: none Housing Status: jail Occupation Status: retired Review of Systems Constitutional: + weight loss, + weakness ENT: + trouble swallowing (pain with swallowing solids and cold liquids) Respiratory: No shortness of breath Cardiac: No chest pain, No edema Abdomen: No pain, No nausea, No vomiting Female : No problem reported Psychiatric: No anxiety Allergies Coded Allergies: Morphine (Verified Adverse Reaction, Intermediate, " MAKES ME MEAN" - CONFUSION, 08/15/17) Medications Current Inpatient Medications Medications (Trade) Dose Ordered Sig/Melvin Route Start Time Stop Time Status Last Admin Dose Admin Acetaminophen (Tylenol Tab) 650 mg Q4H PRN PO 08/15/17 16:30 09/14/17 16:29 08/18/17 14:03 650 MG Al Hydrox/Mg Hydrox/Simethicone (Maalox Max Susp) 15 ml Q4H PRN PO 08/15/17 16:30 09/14/17 16:29 Magnesium Hydroxide (Milk Of Magnesia Susp) 30 ml Q6H PRN PO 08/15/17 16:30 09/14/17 16:29 Polyethylene (Miralax Powder Packet) 17 gm DAILY PRN PO 08/15/17 17:15 09/14/17 17:14 Ondansetron HCl (Zofran Inj) 4 mg Q6H PRN IV 08/15/17 16:30 09/14/17 16:29 Heparin Sodium (Porcine) (Heparin Sq 5000 Unit/0.5ml) 5,000 unit Q12 SQ 08/15/17 21:00 09/14/17 20:59 08/22/17 08:38 5,000 UNIT Amitriptyline HCl (Elavil Tab) 75 mg HS PO 08/15/17 22:00 09/14/17 21:59 08/21/17 20:15 75 MG Bisacodyl (Dulcolax Supp) 10 mg DAILY PRN [place] 08/15/17 16:30 09/14/17 16:29 Calcium Carbonate (Tums Chew Tab) 500 mg Q6H PRN PO 08/15/17 16:30 09/14/17 16:29 08/22/17 08:32 500 MG Cholecalciferol (Vitamin D Tab) 4,000 inter.unit TID PO 08/15/17 20:00 09/14/17 20:59 08/22/17 08:33 4,000 INTER.UNIT Betamethasone/ Clotrimazole (Lotrisone Crm) 1 appln BID EXT 08/15/17 20:00 09/14/17 20:59 08/21/17 08:25 1 APPLN Lorazepam (Ativan Tab) 0.5 mg TID PRN PO 08/15/17 16:30 09/14/17 16:29 Multivitamins (Multivitamin Tab) 1 tab DAILY PO 08/16/17 08:00 09/15/17 08:59 Future hold 08/22/17 08:34 1 TAB Sumatriptan Succinate (Imitrex Tab) 100 mg UD PRN PO 08/15/17 16:30 09/14/17 16:29 08/16/17 20:04 100 MG Topiramate (Topamax Tab) 25 mg BID PO 08/15/17 20:00 09/14/17 20:59 08/22/17 08:33 25 MG Tramadol HCl (Ultram Tab) 50 mg BID PRN PO 08/15/17 16:30 09/14/17 16:29 08/21/17 06:13 50 MG Ferrous Sulfate (Feosol Tab) 325 mg BIDM PO 08/16/17 08:00 09/15/17 07:59 Future hold 08/22/17 08:33 325 MG Magnesium Oxide (Mag-Ox Tab) 400 mg QAM PO 08/16/17 08:00 09/15/17 08:59 08/22/17 08:32 400 MG Midodrine (Proamatine Tab) 5 mg TID@,, PO 08/16/17 08:00 09/15/17 07:59 08/22/17 08:32 5 MG Mirtazapine (Remeron Tab) 45 mg HS PO 08/15/17 22:00 09/14/17 21:59 08/21/17 20:16 45 MG Heparin Sodium (Porcine) (Heparin 100 Unit/ml 5ml Flush) 5 ml PRN PRN IV 08/16/17 01:45 09/15/17 01:44 08/22/17 08:04 5 ML Sucralfate (Carafate Susp) 1 gm ACHS PO 08/16/17 11:00 09/15/17 10:59 08/22/17 06:45 1 GM Nystatin (Mycostatin Susp) 5 ml ACHS PO 08/16/17 11:00 08/26/17 10:59 08/22/17 06:45 5 ML Fluconazole (Diflucan Tab) 100 mg QAM PO 08/17/17 08:00 08/27/17 07:59 08/22/17 08:33 100 MG Collagenase (Santyl Oint) 1 appln DAILY EXT 08/16/17 16:30 09/15/17 16:29 08/22/17 08:34 1 APPLN Enteral Nutritional Formula (Boost Breeze Nutritional Drink) 1 box BID PO 08/18/17 21:00 09/17/17 20:59 08/19/17 07:24 1 BOX Potassium Chloride (Klor-Con Tab) 20 meq BID PO 08/20/17 20:00 09/19/17 19:59 08/22/17 08:33 20 MEQ Gabapentin (Neurontin Tab) 800 mg TID PO 08/20/17 20:00 09/19/17 19:59 08/22/17 08:32 800 MG Carvedilol (Coreg Tab) 3.125 mg BID PO 08/20/17 20:00 09/19/17 19:59 08/22/17 08:32 3.125 MG Pantoprazole Sodium (Protonix Tab) 40 mg BID PO 08/21/17 20:00 09/20/17 19:59 08/22/17 08:32 40 MG Physical Exam Date Time Temp Pulse Resp B/P (MAP) Pulse Ox O2 Delivery O2 Flow Rate FiO2 08/22/17 08:08 36.7 88 16 124/82 (96) 97 Room Air 08/22/17 00:40 98 Room Air 08/22/17 00:19 36.5 110 18 118/78 (91) 91 Room Air 08/21/17 22:00 98 Room Air 08/21/17 15:01 37.1 88 18 112/76 (88) 96 Room Air General Appearance: no apparent distress, + cachetic, + thin ENT: hearing grossly normal Neck: supple, no JVD Respiratory: no respiratory distress, no accessory muscle use Cardiovascular: regular rate, rhythm, no edema Abdomen: non tender, soft Musculoskeletal: pertinent finding (deconditioned, poor tone) Neurologic/Psychiatric: alert, normal mood/affect, oriented x 3 Skin: normal color Laboratory Results Last 24 Hours Test 08/21/17 11:26 08/21/17 17:00 08/22/17 05:51 08/22/17 07:51 Bedside Glucose 93 mg/dl 89 mg/dl 69 mg/dl White Blood Count 12.08 K/uL Red Blood Count 3.62 M/uL Hemoglobin 11.4 g/dL Hematocrit 34.0 % Mean Corpuscular Volume 93.9 fL Mean Corpuscular Hemoglobin 31.5 pg Mean Corpuscular Hemoglobin Concent 33.5 g/dl RDW Standard Deviation 51.6 fL RDW Coefficient of Variation 15.0 % Platelet Count 293 K/uL Mean Platelet Volume 10.4 fL Sodium Level 142 mmol/L Potassium Level 4.4 mmol/L Chloride Level 110 mmol/L Carbon Dioxide Level 27 mmol/L Anion Gap 5.0 mmol/L Blood Urea Nitrogen 11 mg/dl Creatinine 0.20 mg/dl Est Creatinine Clear Calc Drug Dose 169.4 ml/min Estimated GFR () > 150.0 Estimated GFR (Non- 132.6 BUN/Creatinine Ratio 52.7 Random Glucose 78 mg/dl Calcium Level 8.4 mg/dl Test 08/22/17 08:18 Bedside Glucose 87 mg/dl Assessment & Plan Palliative Performance Scale: 30 % (bed bound, total care, limited PO intake) Problem list: Weakness/physical deconditioning, bed-bound Diarrhea- C. diff neg Odynophagia Limited PO intake/weight loss Multiple Sclerosis- advanced Goals of care (Z51.5) Palliative care recs: discussed with patient, Melvin, Dr. David, and Dr. Jean during family meeting. -Odynophagia persists only when drinking cold liquids or swallowing solid foods. She has been able to take some things PO and nursing reports she took all her PO medications at one time this morning. EGD showed no cause for the odynophagia- could be from progression/worsening of MS. Patient and understand that she will not likely get any better from her current condition. -Patient is uncertain if she would like to pursue full treatment (with PEG tube ) vs. comfort care/hospice. She is sure that she does not want another NGT as it was very uncomfortable. -Her goal was to get home, but now that she understands that isn't likely possible, she feels she may not want to prolong her life in her current state. - and patient requested time to discuss, they will contact us with decision or further questions. -No pain or discomforts at this time. TUMS seems to help the odynophagia. -Would not give any solid foods or cold liquids. -Will likely need permanent SNF placement upon discharge, regardless of decision on care. Thank you kindly for this consult. I will follow.
--- NOTE | 2017-08-22 15:15 | Progress Note ---
Subjective Date of Service: Aug 22, 2017. Subjective pt feels good after removal of her coresafe did have discussion with and palliative care team, does not feel he can take pt home, children not available for care at home, pt herself is not clear if she want maximal support or comfort care. is letting pt make decision Problem List Medical Problems: (1) Altered mental status Status: Acute (2) Altered mental status Status: Acute (3) Cellulitis Status: Acute (4) Cystitis Status: Acute (5) Dehydration Status: Acute (6) Dehydration Status: Acute (7) Diarrhea Status: Acute (8) Exacerbation of multiple sclerosis Status: Acute (9) Fall at home Status: Acute (10) Femur fracture Status: Acute (11) Fever Status: Acute (12) Fracture of right hip Status: Acute (13) Headache Status: Acute (14) Hypokalemia Status: Acute (15) Intractable pain Status: Acute (16) Intractable vomiting Status: Acute (17) Migraine Status: Acute (18) Migraine Status: Acute (19) Migraine Status: Acute (20) Migraine Status: Acute (21) Migraine Status: Acute (22) Migraine Status: Acute (23) Migraine Status: Acute (24) Migraine Status: Acute (25) Migraine Status: Acute (26) Migraine Status: Acute (27) Migraine headache Status: Acute (28) Pelvis fracture, right Status: Acute (29) Pneumonia Status: Acute (30) Pressure ulcer of right buttock Status: Acute (31) Proctocolitis Status: Acute (32) Sacral ulcer Status: Acute (33) Status post closed fracture of right hip Status: Acute (34) Tachycardia Status: Acute (35) Tachycardia Status: Acute (36) Tachycardia Status: Acute (37) UTI (urinary tract infection) Status: Acute (38) Weakness Status: Acute (39) Weakness Status: Acute (40) Weakness Status: Acute Review of Systems Constitutional: + weakness, + fatigue, No fever, No chills Respiratory: No cough, No shortness of breath, No dyspnea on exertion Cardiac: No chest pain, No edema Abdomen: + pain, + nausea, No vomiting, No diarrhea Neurologic: + memory loss, + weakness Psychiatric: + depression symptoms, + anhedonism Objective Vital Signs Date Time Temp Pulse Resp B/P (MAP) Pulse Ox O2 Delivery O2 Flow Rate FiO2 08/22/17 00:40 98 Room Air 08/22/17 00:19 36.5 110 18 118/78 (91) 91 Room Air 08/21/17 22:00 98 Room Air 08/21/17 15:01 37.1 88 18 112/76 (88) 96 Room Air 08/21/17 08:05 36.9 108 22 138/91 (107) 97 Room Air Physical Exam General Appearance: + mild distress, + thin Eyes: PERRL, EOMI Respiratory/Chest: + decreased breath sounds, + accessory muscle use Cardiovascular: regular rate, rhythm, no murmur Abdomen: normal bowel sounds, non tender, soft Extremities: no pedal edema, no calf tenderness Neurologic/Psychiatric: alert, oriented x 3 Laboratory Results Last 24 Hours Test 08/21/17 11:26 08/21/17 17:00 08/22/17 04:44 Bedside Glucose 93 mg/dl 89 mg/dl Assessment and Plan 72yo female with odynophagia recent upper and lower scope without explanation of symptoms no further tachyarrhythmia, moved to floor 08/19 no further issues odynophagia - acute - thrush nystatin + diflucan -GI consult appreciated; no significant findings on upper and lower scopes, GI med started consideration for enteral feedings, did discuss buttermaker care especially in face of decline of late, seems to understand that symptoms may be difficult to aleve, and may be nearing comfort measures, pt herself is wavering between comfort and treatment, pt now does not want tube beedings and will agree to discuss and involve palliative care, but without decision on clear direction PPI bid and carafate QID, speech feels more a esophageal motility issue but cannot perform swallowing study tsh and cortisol normal diarrhea, proctocolitis on CT resolving continue supportive care c. diff neg, stool cx neg severe protein calorie malnutrition - due to MS? does not want augmented tube feeds, will continue po support, advance diet to full pulmonary nodule will need follow up, unless agrees to comfort care MS - noted. does not seem to be in flare, but cannot exclude from her primary symptom origin orthostasis - treated with midodrine pt does not move from bed so no postural hypotension, LE edema with med, negative doppler for DVT Rate Related LBBB cardiology does not feel is ischemic related and her exertional status is poor, she has had no recurrence hypernatremia/ hypokalemia - resolved hypoglycemia - resolved neurogenic bladder - 2nd to MS - Vera placed ford albicans UTI - diflucan DVT proph - SCDs; Continued [facility] stay due to: inadequate po fluid intake, inadequate oral pain control, multiple IV medications needed Discharge planning: uncertain
[2017-08-22 15:43] VITALS: BP 129/90; PULSE 96; TEMP 36.5; O2SAT 93
--- NOTE | 2017-08-22 16:57 | GASTROENTEROLOGY PROGRESS NOTE ---
DATE: 08/22/2017 DATE: 08/22/2017 SUBJECTIVE: The patient apparently tolerated nasogastric feedings well; however, in discussions with the primary team the patient does not wish to have a feeding tube placed. I had a lengthy discussing today with the patient and family members, both inside and outside of the room. One question that surfaced was whether or not a feeding tube would prevent or permit her to go home. I did my best to explain that the purpose of feeding tube whether nasogastric or percutaneous or surgically placed would be to provide nutrition. It would take some home tube care and tube feeding administration however this certainly could be managed at home with some reasonable training for caretakers. This, however, would not impact on other care requirements for other comorbidities. REVIEW OF SYSTEMS: Otherwise noncontributory based on 13 point exam. ALLERGIES: SHE IS ALLERGIC TO MORPHINE. MEDICATIONS: Her medications currently include pantoprazole, gabapentin, carvedilol, fluconazole, sucralfate, nystatin, ferrous sulfate, magnesium, midodrine, mirtazapine, heparin subQ, Topamax, and other topical and p.r.n. agents. PHYSICAL EXAMINATION: VITAL SIGNS: Today blood pressure is 129/90, respirations 16, heart rate 96, afebrile 36.5, 93% on room air. HEAD, EYES, EARS, NOSE, AND THROAT: Sclerae are anicteric, conjunctivae moist. MOUTH: Oral mucosa moist. GENERAL: The patient is awake, alert and oriented x3. HEART: Normal S1, S2. LUNGS: Clear to auscultation. ABDOMEN: Soft, flat, minimally tender in the epigastrium without rebound or guarding. There is no hepatosplenomegaly appreciated. No abdominal bruits or evidence of ascites or shifting dullness. The abdomen is flat. EXTREMITIES: Without edema. RECTAL: Deferred. IMPRESSION AND PLAN: The patient is scheduled for home care. At the present time she had declined pursuing enteral feeding as the source of consistent nutrition by way of either PEG tube or surgically replaced jejunostomy tube. PEG tube may be limited because of the patient's prior gastric surgery for peptic ulcer disease many years ago and may be limited by the remaining gastric pouch size, epigastric remnant size and/or adhesions. At the present time will sign off for now. If we can be of further assistance or the patient wishes to pursue enteral feedings and a PEG tube is considered please do not hesitate to contact us. Thank you for allowing us to participate in this patient's care. ZE
[2017-08-22] MEDS: TRAMADOL HCL 50 MG TAB PO PRN (18:52)
[2017-08-22 21:34] VITALS: BP 118/73; PULSE 79
[2017-08-22] MEDS: AMITRIPTYLINE HCL 25 MG TAB PO SCH (21:37)
[2017-08-22] MEDS: MIRTAZAPINE TAB 15 MG TAB PO SCH (21:38)
[2017-08-23 00:13] VITALS: BP 121/75; PULSE 86; TEMP 36.7; O2SAT 95
[2017-08-23] MEDS: SUCRALFATE 1 GM/10 ML UDC PO SCH ×4 (06:04→19:29)
[2017-08-23] MEDS: NYSTATIN SUSP 500,000 U/5 ML UDC PO SCH ×4 (06:04→19:29)
[2017-08-23 07:37] VITALS: BP 126/84; PULSE 96; TEMP 36.8; O2SAT 98
[2017-08-23] MEDS: CLOTRIMAZOLE/BETAMETHASONE CR 15 GM TUBE EXT SCH ×2 (08:00→19:29)
[2017-08-23] MEDS: BOOST BREEZE NUTRITION DRINK 1 BOX PO SCH (08:00)
[2017-08-23] MEDS: FERROUS SULFATE 325 MG TAB PO SCH ×2 (08:48→17:46)
[2017-08-23] MEDS: PANTOprazole SOD 40 MG TAB PO SCH ×2 (08:48→19:27)
[2017-08-23] MEDS: POTASSIUM CHLORIDE 20 MEQ TABCR PO SCH ×2 (08:48→19:27)
[2017-08-23] MEDS: GABAPENTIN 800 MG TAB PO SCH ×3 (08:48→19:27)
[2017-08-23] MEDS: MULTIVITAMIN TAB PO SCH (08:48)
[2017-08-23] MEDS: CHOLECALCIFEROL 1000 INTER.UNIT TAB PO SCH ×3 (08:49→19:28)
[2017-08-23] MEDS: FLUCONAZOLE 100 MG TAB PO SCH (08:49)
[2017-08-23] MEDS: CARVEDILOL 3.125 MG TAB PO SCH ×2 (08:49→19:28)
[2017-08-23] MEDS: TOPIRAMATE 25 MG TAB PO SCH ×2 (08:49→19:29)
[2017-08-23] MEDS: MIDODRINE 2.5 MG TAB PO SCH ×3 (08:50→17:47)
[2017-08-23] MEDS: MAGNESIUM OXIDE 400 MG TAB PO SCH (08:50)
[2017-08-23] MEDS: COLLAGENASE OINT 30 GM TUBE EXT SCH (08:51)
[2017-08-23] MEDS: HEPARIN SOD 5000 UNIT/0.5 ML CARP SQ SCH ×2 (09:02→19:30)
--- NOTE | 2017-08-23 10:23 | Wound Consultation: Inpatient ---
Wound Consultation Date of Consultation: Aug 21, 2017. Attending Physician: Mingo Kwon MD Reason for Consultation: Sacral ulcer History of Present Illness Patient was recently admitted to [facility] for further evaluation of chest pain diarrhea and weakness. Patient states she had an ulcer to her lower back region for some time. Patient is uncertain when this started. Patient denies any increased pain. Patient denies any fever chills or night sweats. Patient denies any current chest pain shortness of breath abdominal discomfort nausea or vomiting. Patient denies any other systemic complaints at this time. Family History Breast cancer Diabetes mellitus FH: cholecystectomy FHx: heart disease Hypertension Social History Smoking Status: Former Smoker Smokeless Tobacco Use: No Alcohol Use: none Drug Use: none Housing Status: lives with family Occupation Status: retired Allergies Coded Allergies: Morphine (Verified Adverse Reaction, Intermediate, " MAKES ME MEAN" - CONFUSION, 08/15/17) Home Medications Scheduled Alendronate Sodium (Alendronate Sodium), 70 MG PO WK Amitriptyline Hcl (Elavil), 75 MG PO HS Calcium Carbonate (Tums), 500 MG PO Q6H Cholecalciferol (Vitamin D3), 4,000 INTER.UNIT PO TID Clotrimazole W/ Betamethasone (Lotrisone), 1 APPLN TOP BID Ferrous Sulfate (Ferrous Sulfate), 325 MG PO BID Gabapentin (Gabapentin), 800 MG PO TID Magnesium Oxide (mg Supplement (Magnesium Oxide), 400 MG PO DAILY Midodrine Hcl (Midodrine Hcl), 5 MG PO TID Mirtazapine (Mirtazapine), 45 MG PO HS Multiple Vitamin (Multivitamin), 1 TAB PO DAILY Natalizumab (Tysabri), 1 DOSE IV MONTHLY Pantoprazole (Pantoprazole Sodium), 40 MG PO BID Potassium Chloride (Potassium Chloride Er), 10 MEQ PO QAM Probiotic Product (Probiotic), 1 CAP PO BID Sucralfate (Carafate), 10 ML PO TIDM Topiramate (Topiramate), 25 MG PO BID [Liquid Protein], 1 DOSE PO BID Scheduled PRN Acetaminophen (Tylenol), 1 SUPP OR Q6H PRN for MILD PAIN OR FEVER Acetaminophen Tab (Tylenol), 325 MG PO DAILY PRN for Pain or Fever Bisacodyl (Dulcolax), 1 SUPP OR Q4DAYS PRN for Constipation Dextrose (Diabetic Use) (Insta-Glucose), 1 DOSE PO UD PRN for HYPOGLYCEMIA PROTOCOL Glucagon (Glucagon Emergency Kit), 1 MG IM UD PRN for HYPOGLYCEMIA PROTOCOL Lorazepam (Ativan), 0.5 MG PO TID PRN for Anxiety Magnesium Hydroxide (Milk Of Magnesia), 30 ML PO UD PRN for Constipation Ondansetron Hcl (Zofran), 4 MG PO Q8H PRN for Nausea Sodium Phosphate/Biphosphate (Fleet Enema), 1 EA OR DAILY PRN for Constipation Sumatriptan Succinate (Imitrex), 100 MG PO UD PRN for Migraine Tramadol Hcl (Ultram), 50 MG PO BID PRN for Pain Inpatient Medications Current Inpatient Medications Medications (Trade) Dose Ordered Sig/Melvin Route Start Time Stop Time Status Last Admin Dose Admin Acetaminophen (Tylenol Tab) 650 mg Q4H PRN PO 08/15/17 16:30 09/14/17 16:29 08/18/17 14:03 650 MG Al Hydrox/Mg Hydrox/Simethicone (Maalox Max Susp) 15 ml Q4H PRN PO 08/15/17 16:30 09/14/17 16:29 Magnesium Hydroxide (Milk Of Magnesia Susp) 30 ml Q6H PRN PO 08/15/17 16:30 09/14/17 16:29 Polyethylene (Miralax Powder Packet) 17 gm DAILY PRN PO 08/15/17 17:15 09/14/17 17:14 Ondansetron HCl (Zofran Inj) 4 mg Q6H PRN IV 08/15/17 16:30 09/14/17 16:29 Heparin Sodium (Porcine) (Heparin Sq 5000 Unit/0.5ml) 5,000 unit Q12 SQ 08/15/17 21:00 09/14/17 20:59 08/23/17 09:02 5,000 UNIT Amitriptyline HCl (Elavil Tab) 75 mg HS PO 08/15/17 22:00 09/14/17 21:59 08/22/17 21:37 75 MG Bisacodyl (Dulcolax Supp) 10 mg DAILY PRN OR 08/15/17 16:30 09/14/17 16:29 Calcium Carbonate (Tums Chew Tab) 500 mg Q6H PRN PO 08/15/17 16:30 09/14/17 16:29 08/22/17 13:55 500 MG Cholecalciferol (Vitamin D Tab) 4,000 inter.unit TID PO 08/15/17 20:00 09/14/17 20:59 08/23/17 08:49 4,000 INTER.UNIT Betamethasone/ Clotrimazole (Lotrisone Crm) 1 appln BID EXT 08/15/17 20:00 09/14/17 20:59 08/21/17 08:25 1 APPLN Lorazepam (Ativan Tab) 0.5 mg TID PRN PO 08/15/17 16:30 09/14/17 16:29 Multivitamins (Multivitamin Tab) 1 tab DAILY PO 08/16/17 08:00 09/15/17 08:59 Future hold 08/23/17 08:48 1 TAB Sumatriptan Succinate (Imitrex Tab) 100 mg UD PRN PO 08/15/17 16:30 09/14/17 16:29 08/16/17 20:04 100 MG Topiramate (Topamax Tab) 25 mg BID PO 08/15/17 20:00 09/14/17 20:59 08/23/17 08:49 25 MG Tramadol HCl (Ultram Tab) 50 mg BID PRN PO 08/15/17 16:30 09/14/17 16:29 08/22/17 18:52 50 MG Ferrous Sulfate (Feosol Tab) 325 mg BIDM PO 08/16/17 08:00 09/15/17 07:59 Future hold 08/23/17 08:48 325 MG Magnesium Oxide (Mag-Ox Tab) 400 mg QAM PO 08/16/17 08:00 09/15/17 08:59 08/23/17 08:50 400 MG Midodrine (Proamatine Tab) 5 mg TID@ PO 08/16/17 08:00 09/15/17 07:59 08/23/17 08:50 5 MG Mirtazapine (Remeron Tab) 45 mg HS PO 08/15/17 22:00 09/14/17 21:59 08/22/17 21:38 45 MG Heparin Sodium (Porcine) (Heparin 100 Unit/ml 5ml Flush) 5 ml PRN PRN IV 08/16/17 01:45 09/15/17 01:44 08/23/17 08:26 5 ML Sucralfate (Carafate Susp) 1 gm ACHS PO 08/16/17 11:00 09/15/17 10:59 08/23/17 06:04 1 GM Nystatin (Mycostatin Susp) 5 ml ACHS PO 08/16/17 11:00 08/26/17 10:59 08/23/17 06:04 5 ML Fluconazole (Diflucan Tab) 100 mg QAM PO 08/17/17 08:00 08/27/17 07:59 08/23/17 08:49 100 MG Collagenase (Santyl Oint) 1 appln DAILY EXT 08/16/17 16:30 09/15/17 16:29 08/23/17 08:51 1 APPLN Enteral Nutritional Formula (Boost Breeze Nutritional Drink) 1 box BID PO 08/18/17 21:00 09/17/17 20:59 08/19/17 07:24 1 BOX Potassium Chloride (Klor-Con Tab) 20 meq BID PO 08/20/17 20:00 09/19/17 19:59 08/23/17 08:48 20 MEQ Gabapentin (Neurontin Tab) 800 mg TID PO 08/20/17 20:00 09/19/17 19:59 08/23/17 08:48 800 MG Carvedilol (Coreg Tab) 3.125 mg BID PO 08/20/17 20:00 09/19/17 19:59 08/23/17 08:49 3.125 MG Pantoprazole Sodium (Protonix Tab) 40 mg BID PO 08/21/17 20:00 09/20/17 19:59 08/23/17 08:48 40 MG Physical Exam Date Time Temp Pulse Resp B/P (MAP) Pulse Ox O2 Delivery O2 Flow Rate FiO2 08/23/17 07:37 36.8 96 20 126/84 (98) 98 Room Air 08/23/17 00:13 36.7 86 16 121/75 (90) 95 Room Air 08/23/17 00:00 Room Air 08/22/17 21:34 79 118/73 (88) 08/22/17 20:00 Room Air 08/22/17 15:43 36.5 96 16 129/90 (103) 93 Room Air General: The patient is lying in a hospital bed in no distress. Alert, cooperative and appropriate to all questions. HEENT: Pupils equal and reactive to light. Sclera clear, EOM intact. Neck: Supple, No JVD noted Chest: CTA in all marcos. No deformity Heart: RRR without murmurs, S3, S4, thrills, rubs or heaves Back: There is a presence of a coccygeal ulcer measuring 3 x 2 x 1 cm. There is central eschar formation noted.Central slough or periwound erythema active drainage present. There is no pain to palpation or fluctuance noted. Neurological: Alert and oriented x3. No focal deficits. Skin: No rashes, papules, vesicles, excoriations Laboratory Results Last 24 Hours Test 08/22/17 12:05 08/22/17 16:56 Bedside Glucose 78 mg/dl 120 mg/dl Assessment & Plan Assessment: Stage III pressure ulcer coccyx region. Plan: No debridement as indicated this time. The site will be managed with Santyl and gauze change daily basis. Patient will be maintained on a low air loss mattress. Patient will be followed during her hospital course and can be followed in the outpatient clinic upon discharge.
--- NOTE | 2017-08-23 13:54 | Palliative Care Progress Note ---
Palliative Care Progress Note Date of Service Aug 23, 2017. Subjective Pt evaluation today including: conversation w/ patient, conversation w/ family , physical exam, chart review, conversation w/ marketing database consultant Pain: 0/10 PO Intake: tolerating diet Voiding: hill catheter in place -Patient is tired, but awake, alert and oriented. She is somewhat forgetful of the conversation we had yesterday, but does remember the alvarado points. -Patient stated, "I don't think I want the feeding tube." -, Melvin, was also at bedside. He said they also had a chance to talk to their son-- who stated that "she's suffered long enough," and was supportive of not placing a feeding tube. is supportive as well. -Patient is really not having any dysphagia/odynophagia at this time. She has been able to eat and drink. Does not tolerate ice in drinks, however. Review of Systems Constitutional: + weakness, + fatigue ENT: No trouble swallowing Respiratory: No shortness of breath, No dyspnea on exertion Cardiac: No chest pain, No edema Abdomen: No pain, No nausea, No vomiting Female : No problem reported Psychiatric: No depression symptoms, No anxiety Objective Vital Signs Date Time Temp Pulse Resp B/P (MAP) Pulse Ox O2 Delivery O2 Flow Rate FiO2 08/23/17 08:00 Room Air 08/23/17 07:37 36.8 96 20 126/84 (98) 98 Room Air 08/23/17 00:13 36.7 86 16 121/75 (90) 95 Room Air 08/23/17 00:00 Room Air 08/22/17 21:34 79 118/73 (88) 08/22/17 20:00 Room Air 08/22/17 15:43 36.5 96 16 129/90 (103) 93 Room Air Physical Exam General Appearance: no apparent distress, + cachetic, + thin ENT: hearing grossly normal Neck: supple, no JVD Respiratory/Chest: lungs clear, no respiratory distress, no accessory muscle use Cardiovascular: regular rate, rhythm, no edema Abdomen: normal bowel sounds, non tender, soft Neurologic/Psychiatric: normal mood/affect, oriented x 3 (some forgetfulness) Laboratory Results Last 24 Hours Test 08/22/17 16:56 Bedside Glucose 120 mg/dl Assessment and Plan Problem list: Weakness/physical deconditioning, bed-bound Diarrhea- C. diff neg Odynophagia Limited PO intake/weight loss Multiple Sclerosis- advanced Goals of care (Z51.5) Palliative care recs: as discussed with patient and her , Melvin. Dr. Kwon updated. -Comfort measures only. -No feeding tube (NGT, g-tube, or j-tube). -Patient wishes to continue comfort feeding despite any pain or risk. -Discussed hospice care with patient and , they both agree that they would like patient to have hospice care. -If the [facility] plans to place patient in skilled care, that is fine, she can be transitioned to hospice after skilled benefit. -If not able to be skilled, would initiate hospice care now. manager of medical updated. -New POLST form completed today to replace previous POLST form: DNR, comfort measures only, use of abx with comfort as the goal, no artificial hydration/ nutrition. -Patient's goal is to pass away peacefully and comfortably. -She currently has no pain or discomforts. Thank you again for this consult. Please contact me with any further palliative care needs. Palliative Performance Scale: 30 % (bed bound, total care, limited PO intake) Discharge planning: residential facility (on comfort/hospice care)
[2017-08-23 14:54] VITALS: BP 138/81; PULSE 90; TEMP 36.4; O2SAT 96
[2017-08-23] MEDS ORDERED: BOOST BREEZE NUTRITION DRINK 1 BOX PO PRN (16:15)
[2017-08-23] MEDS: MIRTAZAPINE TAB 15 MG TAB PO SCH (19:27)
[2017-08-23] MEDS: AMITRIPTYLINE HCL 25 MG TAB PO SCH (19:27)
[2017-08-24 00:40] VITALS: BP 118/75; PULSE 68; TEMP 35.4; O2SAT 97
[2017-08-24] MEDS: SUCRALFATE 1 GM/10 ML UDC PO SCH ×4 (05:20→21:28)
[2017-08-24] MEDS: NYSTATIN SUSP 500,000 U/5 ML UDC PO SCH ×4 (05:20→21:27)
--- NOTE | 2017-08-24 05:45 | Progress Note ---
Subjective Date of Service: Aug 23, 2017. Subjective Pt evaluation today including: conversation w/ patient, physical exam, chart review, lab review, review of studies Pain: odynophagia - ongoing PO Intake: poor Voiding: hill catheter in place patient confused and sleepy during my visit I had a hard time communicating with her in fact she fell asleep several times ROS unobtainable due to the above Problem List Medical Problems: (1) Altered mental status Status: Acute (2) Altered mental status Status: Acute (3) Cellulitis Status: Acute (4) Cystitis Status: Acute (5) Dehydration Status: Acute (6) Dehydration Status: Acute (7) Diarrhea Status: Acute (8) Exacerbation of multiple sclerosis Status: Acute (9) Fall at home Status: Acute (10) Femur fracture Status: Acute (11) Fever Status: Acute (12) Fracture of right hip Status: Acute (13) Headache Status: Acute (14) Hypokalemia Status: Acute (15) Intractable pain Status: Acute (16) Intractable vomiting Status: Acute (17) Migraine Status: Acute (18) Migraine Status: Acute (19) Migraine Status: Acute (20) Migraine Status: Acute (21) Migraine Status: Acute (22) Migraine Status: Acute (23) Migraine Status: Acute (24) Migraine Status: Acute (25) Migraine Status: Acute (26) Migraine Status: Acute (27) Migraine headache Status: Acute (28) Pelvis fracture, right Status: Acute (29) Pneumonia Status: Acute (30) Pressure ulcer of right buttock Status: Acute (31) Proctocolitis Status: Acute (32) Sacral ulcer Status: Acute (33) Status post closed fracture of right hip Status: Acute (34) Tachycardia Status: Acute (35) Tachycardia Status: Acute (36) Tachycardia Status: Acute (37) UTI (urinary tract infection) Status: Acute (38) Weakness Status: Acute (39) Weakness Status: Acute (40) Weakness Status: Acute Objective Vital Signs Date Time Temp Pulse Resp B/P (MAP) Pulse Ox O2 Delivery O2 Flow Rate FiO2 08/23/17 16:00 Room Air 08/23/17 14:54 36.4 90 20 138/81 (100) 96 Room Air 08/23/17 08:00 Room Air 08/23/17 07:37 36.8 96 20 126/84 (98) 98 Room Air 08/23/17 00:13 36.7 86 16 121/75 (90) 95 Room Air 08/23/17 00:00 Room Air 08/22/17 21:34 79 118/73 (88) 08/22/17 20:00 Room Air Physical Exam General Appearance: no apparent distress, + cachetic, + thin ENT: pharynx normal (although MM dry) Neck: no JVD Respiratory/Chest: lungs clear, no respiratory distress Cardiovascular: regular rate, rhythm, no gallop Abdomen: normal bowel sounds, non tender, soft, no organomegaly Extremities: + pedal edema Neurologic/Psychiatric: + disoriented Assessment and Plan 72yo female: 1. odynophagia/dysphagia - recent EGD w/o abnormalities. cause? esophageal dysmotility? due to MS? either way she is not eating well and continues to do poorly on general scale. 2. diarrhea, ?proctocolitis on CT - GI consult done; flex sig unremarkable; stool studies neg; symptoms resolved. 3. severe protein calorie malnutrition - due to MS? due to #2 and #3? pulmonary nodule (that could be lung ca)? 4. MS - could be playing large role in overall constitution. 5. h/o orthostasis - midodrine 6. hypokalemia - resolved 7. hypoglycemia - ongoing; consider prednisone for appetite and to maintain normoglycemia. 8. hypernatremia - resolved 9. b/l LE edema - likely due to hypoalbuminemia - dopplers neg for DVT 10. neurogenic bladder - 2nd to MS - hill placed 11. ford albicans UTI - diflucan dispo - [facility] POLST form completed by palliative care I appreciate their efforts Discharge planning: care home facility (on comfort/hospice care)
[2017-08-24 06:20] LABS: HEMATOCRIT 36.3 % (37-47); MEAN CELL VOLUME 93.1 fL (80-100); MEAN CORPUSCULAR HEMOGLOBIN 31.3 pg (25-34); MEAN CORPUSCULAR HGB CONC 33.6 g/dl (32-36); MEAN PLATELET VOLUME 10.4 fL (7.4-10.4); PLATELET COUNT 339 K/uL (130-400); WHITE BLOOD COUNT 7.85 K/uL (4.8-10.8)
[2017-08-24 06:49] LABS: BUN/CREATININE RATIO 60.4 (10-20); CALCIUM 8.7 mg/dl (8.5-10.1); CREATININE 0.22 mg/dl (0.60-1.20); POTASSIUM 3.9 mmol/L (3.5-5.1)
[2017-08-24] MEDS: CLOTRIMAZOLE/BETAMETHASONE CR 15 GM TUBE EXT SCH ×2 (07:20→20:00)
[2017-08-24] MEDS: CARVEDILOL 3.125 MG TAB PO SCH ×2 (07:20→21:27)
[2017-08-24] MEDS: FLUCONAZOLE 100 MG TAB PO SCH (07:21)
[2017-08-24] MEDS: MAGNESIUM OXIDE 400 MG TAB PO SCH (07:21)
[2017-08-24] MEDS: MIDODRINE 2.5 MG TAB PO SCH ×3 (07:21→18:09)
[2017-08-24] MEDS: PANTOprazole SOD 40 MG TAB PO SCH ×2 (07:22→21:26)
[2017-08-24] MEDS: MULTIVITAMIN TAB PO SCH (07:22)
[2017-08-24] MEDS: GABAPENTIN 800 MG TAB PO SCH ×3 (07:22→21:27)
[2017-08-24] MEDS: FERROUS SULFATE 325 MG TAB PO SCH ×2 (07:22→18:10)
[2017-08-24] MEDS: POTASSIUM CHLORIDE 20 MEQ TABCR PO SCH ×2 (07:22→21:31)
[2017-08-24] MEDS: CHOLECALCIFEROL 1000 INTER.UNIT TAB PO SCH ×3 (07:23→21:25)
[2017-08-24] MEDS: TOPIRAMATE 25 MG TAB PO SCH ×2 (07:23→21:32)
[2017-08-24] MEDS: COLLAGENASE OINT 30 GM TUBE EXT SCH (07:28)
[2017-08-24 07:50] VITALS: BP 119/74; PULSE 78; TEMP 37; O2SAT 99
[2017-08-24 08:00] VITALS: O2SAT 99
[2017-08-24] MEDS: HEPARIN SOD 5000 UNIT/0.5 ML CARP SQ SCH ×2 (09:05→21:29)
[2017-08-24] MEDS: TRAMADOL HCL 50 MG TAB PO PRN (10:36)
[2017-08-24 15:29] VITALS: BP 129/81; PULSE 83; TEMP 36.3; O2SAT 98
--- NOTE | 2017-08-24 20:36 | Progress Note ---
Subjective Date of Service: Aug 24, 2017. Subjective Pt evaluation today including: conversation w/ patient, conversation w/ family (), physical exam, chart review, lab review, conversation w/ security consultant ( neurology - Dr. Gerardo), review of inpatient medication list Pain: odynophagia - ongoing PO Intake: poor Voiding: hill catheter in place during the visit again she complained of odynophagia and dysphagia she was again difficult to understand at bedside denied any new complaints Problem List Medical Problems: (1) Altered mental status Status: Acute (2) Altered mental status Status: Acute (3) Cellulitis Status: Acute (4) Cystitis Status: Acute (5) Dehydration Status: Acute (6) Dehydration Status: Acute (7) Diarrhea Status: Acute (8) Exacerbation of multiple sclerosis Status: Acute (9) Fall at home Status: Acute (10) Femur fracture Status: Acute (11) Fever Status: Acute (12) Fracture of right hip Status: Acute (13) Headache Status: Acute (14) Hypokalemia Status: Acute (15) Intractable pain Status: Acute (16) Intractable vomiting Status: Acute (17) Migraine Status: Acute (18) Migraine Status: Acute (19) Migraine Status: Acute (20) Migraine Status: Acute (21) Migraine Status: Acute (22) Migraine Status: Acute (23) Migraine Status: Acute (24) Migraine Status: Acute (25) Migraine Status: Acute (26) Migraine Status: Acute (27) Migraine headache Status: Acute (28) Pelvis fracture, right Status: Acute (29) Pneumonia Status: Acute (30) Pressure ulcer of right buttock Status: Acute (31) Proctocolitis Status: Acute (32) Sacral ulcer Status: Acute (33) Status post closed fracture of right hip Status: Acute (34) Tachycardia Status: Acute (35) Tachycardia Status: Acute (36) Tachycardia Status: Acute (37) UTI (urinary tract infection) Status: Acute (38) Weakness Status: Acute (39) Weakness Status: Acute (40) Weakness Status: Acute Review of Systems Constitutional: No fever Respiratory: No shortness of breath Cardiac: No chest pain Abdomen: No pain Objective Vital Signs Date Time Temp Pulse Resp B/P (MAP) Pulse Ox O2 Delivery O2 Flow Rate FiO2 08/24/17 16:00 Room Air 08/24/17 15:29 36.3 83 20 129/81 (97) 98 Room Air 08/24/17 08:00 99 Room Air 08/24/17 07:50 37.0 78 17 119/74 (89) 99 08/24/17 00:40 35.4 68 18 118/75 (89) 97 Room Air 08/24/17 00:00 Room Air Physical Exam General Appearance: no apparent distress, + cachetic, + thin ENT: pharynx normal Neck: no JVD Respiratory/Chest: lungs clear, no respiratory distress, no accessory muscle use Cardiovascular: regular rate, rhythm, no gallop Abdomen: normal bowel sounds, non tender, soft, no organomegaly Extremities: no pedal edema Laboratory Results Last 24 Hours Test 08/24/17 06:05 White Blood Count 7.85 K/uL Red Blood Count 3.90 M/uL Hemoglobin 12.2 g/dL Hematocrit 36.3 % Mean Corpuscular Volume 93.1 fL Mean Corpuscular Hemoglobin 31.3 pg Mean Corpuscular Hemoglobin Concent 33.6 g/dl RDW Standard Deviation 49.8 fL RDW Coefficient of Variation 14.7 % Platelet Count 339 K/uL Mean Platelet Volume 10.4 fL Sodium Level 143 mmol/L Potassium Level 3.9 mmol/L Chloride Level 109 mmol/L Carbon Dioxide Level 27 mmol/L Anion Gap 7.0 mmol/L Blood Urea Nitrogen 13 mg/dl Creatinine 0.22 mg/dl Est Creatinine Clear Calc Drug Dose 154.0 ml/min Estimated GFR () 148.9 Estimated GFR (Non- 128.5 BUN/Creatinine Ratio 60.4 Random Glucose 76 mg/dl Calcium Level 8.7 mg/dl Assessment and Plan 72yo female: 1. odynophagia/dysphagia - recent EGD w/o abnormalities. cause? esophageal dysmotility? due to MS? either way she is not eating well and continues to do poorly on general scale. has declined PEG tube. 2. diarrhea- GI consult done; flex sig unremarkable; stool studies neg; symptoms resolved. 3. severe protein calorie malnutrition - ongoing. Differential - end-stage MS vs underlying occult cancer vs other. Pt/ decline additional interventions. 4. MS - could be playing large role in overall constitution, dysphagia/ odynophagia, etc. Spoke with Dr. Gerardo - we could offer her another MRI brain and if there are active MS plaques high-dose steroids could be employed. I discussed this w/ the patient's - patient and the entire family do not want additional interventions/aggressive care. Thus, will defer on MRI, etc. 5. h/o orthostasis - midodrine 6. hypokalemia - resolved 7. hypoglycemia - ongoing; will start prednisone 20mg daily and wean to 10mg, then leave on that dose for palliative purposes. May help appetite. 8. hypernatremia - resolved 9. b/l LE edema - likely due to hypoalbuminemia - dopplers neg for DVT 10. neurogenic bladder - 2nd to MS - hill placed 11. ford albicans UTI - diflucan, day #7 - stop diflucan after today's dose dispo - SNF POLST form completed by palliative care I appreciate their efforts spoke with SW today - awaiting final determination on whether she will go to skilled at the [facility] hopefully tomorrow Discharge planning: assisted facility (on comfort/hospice care)
[2017-08-24] MEDS: AMITRIPTYLINE HCL 25 MG TAB PO SCH (21:25)
[2017-08-24] MEDS: MIRTAZAPINE TAB 15 MG TAB PO SCH (21:27)
[2017-08-24 23:57] VITALS: BP 140/84; PULSE 109; TEMP 36.9; O2SAT 96
[2017-08-25] MEDS: SUCRALFATE 1 GM/10 ML UDC PO SCH ×2 (06:07→12:02)
[2017-08-25] MEDS: NYSTATIN SUSP 500,000 U/5 ML UDC PO SCH ×2 (06:07→12:02)
[2017-08-25] MEDS: TRAMADOL HCL 50 MG TAB PO PRN (06:39)
[2017-08-25 08:32] VITALS: BP 135/91; PULSE 108; TEMP 36.3; O2SAT 98
[2017-08-25] MEDS: GABAPENTIN 800 MG TAB PO SCH ×2 (08:41→13:51)
[2017-08-25] MEDS: TOPIRAMATE 25 MG TAB PO SCH (08:41)
[2017-08-25] MEDS: MULTIVITAMIN TAB PO SCH (08:41)
[2017-08-25] MEDS: PANTOprazole SOD 40 MG TAB PO SCH (08:42)
[2017-08-25] MEDS: MIDODRINE 2.5 MG TAB PO SCH ×2 (08:42→12:02)
[2017-08-25] MEDS: MAGNESIUM OXIDE 400 MG TAB PO SCH (08:42)
[2017-08-25] MEDS: CARVEDILOL 3.125 MG TAB PO SCH (08:42)
[2017-08-25] MEDS: CHOLECALCIFEROL 1000 INTER.UNIT TAB PO SCH ×2 (08:43→13:51)
[2017-08-25] MEDS: POTASSIUM CHLORIDE 20 MEQ TABCR PO SCH (08:43)
[2017-08-25] MEDS: FERROUS SULFATE 325 MG TAB PO SCH (08:43)
[2017-08-25] MEDS: CLOTRIMAZOLE/BETAMETHASONE CR 15 GM TUBE EXT SCH (08:44)
[2017-08-25] MEDS: COLLAGENASE OINT 30 GM TUBE EXT SCH (08:45)
[2017-08-25] MEDS: HEPARIN SOD 5000 UNIT/0.5 ML CARP SQ SCH (08:53)
[2017-08-25 14:47] VITALS: BP 135/91; PULSE 108; TEMP 36.3; O2SAT 98
[2017-08-25 15:38] VITALS: BP 109/70; PULSE 103; TEMP 36.2; O2SAT 95
--- NOTE | 2017-08-25 16:03 | Discharge Instructions ---
Discharge Instructions Date of Service Aug 25, 2017. Admission Reason for Admission: Diarrhea, Proctocolitis Discharge Discharge Diagnosis / Problem: Difficulty swallowing/painful swallowing - likely due to Multiple sclerosis Discharge Goals Goal(s): Learn about illness, Diagnostic testing, Therapeutic intervention Activity Recommendations Activity Level: Assistance Required . Additional Information Patient informed of condition: Yes Advance Directives: Yes DNR: Yes Level of Care: Skilled Communicable Disease: No Prognosis: Deteriorating Oxygen at (LPM): none Vera Catheter: Yes (Will need to be changed in 20 days, then every 28 days thereafter.) Instructions / Follow-Up Instructions / Follow-Up No follow-up required with Dr. Gerardo (neurology), PCP (Dr. Montoya), or any other specialist. Defer all care to medical economics consultant at [facility] where palliative care and hospice will be utilized. Current Hospital Diet Patient's current hospital diet: Regular Diet Discharge Diet Recommended Diet: Regular Diet Procedures Procedures Performed: EGD WITH BX AND FLEX SIGMOIDOSCOPY Pending Studies Studies pending at discharge: no Physician Orders On Transfer Special Precautions: aspiration precautions Vital Signs: per routine POLST Discussion: with POLST completion Laboratory Results Hemoglobin A1c Test 07/26/17 05:32 Range/Units Estimated Average Glucose 100 mg/dl Hemoglobin A1c 5.1 4.5-5.6 % Lipid Panel Test 07/26/17 05:32 Range/Units Triglycerides Level 67 0-150 mg/dl Cholesterol Level 106 0-200 mg/dl HDL Cholesterol 81 mg/dl Cholesterol/HDL Ratio 1.3 LDL Cholesterol, Calculated 12 mg/dl Medical Emergencies . Who to Call and When: Medical Emergencies: If at any time you feel your situation is an emergency, please call 911 immediately. . Non-Emergent Contact Non-Emergency issues call your: Primary Care Provider (medical economics consultant of SNF) Call Non-Emergent contact if: your pain is not controlled, your pain is worsening, your pain is unusual for you, your pain is concerning you, you have any medication questions . . "Provider Documentation" section prepared by Mingo Kwon. . Core Measure Problem Core Measures: None
[2017-08-25] MEDS ORDERED: ULT/50 PO (16:06)
[2017-08-25] MEDS ORDERED: LORA-741 PO (16:06)
[2017-08-25] MEDS ORDERED: PRED10TA PO (16:06)
== END 2017-08-25 16:57 | DRG 368 ==
LOC: EDBD 10:31 → C.EDA 10:32 → C.MS4W 16:41 → ENRESERV 17:11 → CANRESERV 08-17 23:16 → ENRESERV 08-17 23:46 → C.2T 08-18 00:08 → ENRESERV 08-19 14:15 → C.4E 08-19 15:55
PROVIDERS: ADMIT Internal Medicine; ATTEND Internal Medicine
PROC: 0DJ08ZZ Inspection of Upper Intestinal Tract, Via Natural or Artificial Opening Endoscopic (ICD-10-PCS; principal; 2017-08-17 14:38)
DX: B37.81 Candidal esophagitis (principal); E43 Unspecified severe protein-calorie malnutrition; E87.0 Hyperosmolality and hypernatremia; N39.0 Urinary tract infection, site not specified; Z51.5 Encounter for palliative care; I10 Essential (primary) hypertension; Z90.710 Acquired absence of both cervix and uterus; G35 Multiple sclerosis; E87.6 Hypokalemia; N31.9 Neuromuscular dysfunction of bladder, unspecified; L89.150 Pressure ulcer of sacral region, unstageable; Z87.891 Personal history of nicotine dependence; Z83.3 Family history of diabetes mellitus; Z82.49 Family history of ischemic heart disease and other diseases of the circulatory system

== ENCOUNTER → 2017-08-15 | Outpatient (CLI) | payer OTHER ==
[~2017-08-15] MED LIST changes: -PRED10TA PO
[2017-08-15 10:33] LABS: BLOOD UREA NITROGEN 12 mg/dl (7-18); BUN/CREATININE RATIO 41.2 (10-20); CALCIUM 8.4 mg/dl (8.5-10.1); CARBON DIOXIDE 26 mmol/L (21-32); CHLORIDE 114 mmol/L (98-107); CREATININE 0.29 mg/dl (0.60-1.20); GLUCOSE 66 mg/dl (70-99); POTASSIUM 3.7 mmol/L (3.5-5.1); SODIUM 147 mmol/L (136-145)
== END | disposition home or self-care (01) ==
LOC: C.LABUPNIT 09:54
PROVIDERS: ATTEND Nurse Practitioner Family
DX: R41.82 Altered mental status, unspecified (principal); M62.81 Muscle weakness (generalized)

== ENCOUNTER → 2017-08-29 | Outpatient (CLI) | payer OTHER ==
[~2017-08-29] MED LIST changes: +ACET650S10 PR; -AMOX875T PO; +BISA10SU38 PR; -CHOL1000 PO; +CLOTCRE33 TOP; -FERR325T PO; -FSM70 PO; +LIQUID PROTEIN PO; +LORA-741 PO; -MAGN400T7 PO; -METH500T3 PO; +MOML PO; -NATA1INJ IV; +ONDA4TAB46 PO; +PRED10TA PO; -SNTO30 TD
== END ==
LOC: C.LABUPNIT 09:59
PROVIDERS: ATTEND Nurse Practitioner Family
DX: L89.159 Pressure ulcer of sacral region, unspecified stage (principal)

== ENCOUNTER → 2017-09-06 | Outpatient (CLI) | payer OTHER ==
[~2017-09-06] MED LIST changes: +PANT40TA2 PO; -PRT/40 PO
== END ==
LOC: C.LABUPNIT 07:46
PROVIDERS: ATTEND Nurse Practitioner Family
DX: R48.8 Other symbolic dysfunctions (principal)

== ENCOUNTER → 2017-09-22 | Outpatient (CLI) | payer OTHER | LOC: C.LABUPNIT 09:02 | PROVIDERS: ATTEND Nurse Practitioner Family | DX: R48.8 Other symbolic dysfunctions (principal) ==

== ENCOUNTER → 2017-09-27 | Outpatient (CLI) | payer OTHER ==
[2017-09-27 22:45] LABS: URINE APPEARANCE TURBID (CLEAR); URINE BILIRUBIN NEG (NEG); URINE COLOR DK YELLOW; URINE EPITHELIAL CELL AUTO >30 /lpf (0-5); URINE NITRITE POS (NEG); URINE PH >= 9.0 (4.5-7.5); URINE SPECIFIC GRAVITY 1.017 (1.000-1.030); UROBILINOGEN NEG (NEG); ZZUR CULT IF INDIC CLEAN CATCH YES
[2017-09-27 22:59] LABS: MANUAL MICROSCOPIC REQUIRED? NO; REVIEW REQ? YES; SULFASALICYLIC ACID POS (NEG)
== END ==
LOC: C.LABUPNIT 14:34
PROVIDERS: ATTEND Nurse Practitioner Family
DX: R30.0 Dysuria (principal)

== ENCOUNTER → 2017-09-30 | Outpatient (CLI) | payer OTHER ==
[2017-09-30 07:16] LABS: URINE APPEARANCE CLOUDY (CLEAR); URINE BILIRUBIN NEG (NEG); URINE COLOR YELLOW; URINE EPITHELIAL CELL AUTO >30 /lpf (0-5); URINE NITRITE POS (NEG); URINE PH >= 9.0 (4.5-7.5); UROBILINOGEN NEG (NEG); ZZURINE CULT IF INDIC CATH YES
[2017-09-30 07:35] LABS: REVIEW REQ? YES
[2017-09-30 07:36] LABS: MANUAL MICROSCOPIC REQUIRED? NO; SULFASALICYLIC ACID NEG (NEG)
== END ==
LOC: C.LABUPNIT 11:57
PROVIDERS: ATTEND Nurse Practitioner Family
DX: N39.0 Urinary tract infection, site not specified (principal)

== ENCOUNTER → 2017-10-02 | Outpatient (CLI) | payer OTHER ==
[2017-10-02 14:51] LABS: URINE APPEARANCE CLEAR (CLEAR); URINE BILIRUBIN NEG (NEG); URINE COLOR YELLOW; URINE EPITHELIAL CELL AUTO 0-5 /lpf (0-5); URINE NITRITE POS (NEG); URINE PH 7.5 (4.5-7.5); URINE SPECIFIC GRAVITY 1.014 (1.000-1.030); UROBILINOGEN NEG (NEG)
[2017-10-02 14:54] LABS: MANUAL MICROSCOPIC REQUIRED? NO; REVIEW REQ? NO
== END ==
LOC: C.LABUPNIT 14:12
PROVIDERS: ATTEND Nurse Practitioner Family
DX: N39.0 Urinary tract infection, site not specified (principal)

== ENCOUNTER → 2017-10-06 | Outpatient (CLI) | payer OTHER ==
[2017-10-06 05:15] LABS: MANUAL MICROSCOPIC REQUIRED? YES; REVIEW REQ? NO; SULFASALICYLIC ACID POS (NEG); URINE APPEARANCE TURBID (CLEAR); URINE COLOR RED; URINE SPECIFIC GRAVITY 1.015 (1.000-1.030)
[2017-10-06 05:16] LABS: URINE BACTERIA 4+ (NEG); URINE MUCUS PRESENT (NONE PRSENT); URINE RBC >30 /hpf (0-4); URINE WBC >30 /hpf (0-5)
== END ==
LOC: C.LABUPNIT 14:58
PROVIDERS: ATTEND Nurse Practitioner Family
DX: N39.0 Urinary tract infection, site not specified (principal)

== ENCOUNTER → 2017-10-07 | Outpatient (CLI) | payer OTHER ==
[~2017-10-07] MED LIST changes: +ACET-1693 PO; -ACET325T96 PO; +AMOX1TAB43 PO; +ASCA500 PO; +AZIT-57 PO; +CEFT1INJ57 IV; +CRAN1TAB3 PO; +LEVO1INJ IV; +LOPE-5 PO; +MECL1TAB40 PO; +MISCCAP80 PO; +MULT-513 PO; +OXYC-106 PO; +OXYC-739 PO; +POTA10CA28 PO
== END ==
LOC: C.LABSPEC 13:50
PROVIDERS: ATTEND Nurse Practitioner Family
DX: N39.0 Urinary tract infection, site not specified (principal)

== ENCOUNTER → 2017-10-11 | Outpatient (CLI) | payer OTHER ==
[~2017-10-11] MED LIST changes: -ACET-1693 PO; +ACET325T96 PO; -AMOX1TAB43 PO; -ASCA500 PO; -AZIT-57 PO; -CEFT1INJ57 IV; -CRAN1TAB3 PO; -LEVO1INJ IV; -LOPE-5 PO; -MECL1TAB40 PO; -MISCCAP80 PO; -MULT-513 PO; -OXYC-106 PO; -OXYC-739 PO; -POTA10CA28 PO
== END ==
LOC: C.LABUPNIT 08:00
PROVIDERS: ATTEND Nurse Practitioner Family
DX: M62.81 Muscle weakness (generalized) (principal)

== ENCOUNTER → 2017-11-09 | Outpatient (CLI) | payer OTHER ==
[2017-11-09 08:57] LABS: BASO % 0.1 %; BASO ABS # 0.01 K/uL (0-0.2); COMPLETE YES; EOS % 2.5 %; HEMATOCRIT 38.8 % (37-47); IG% 0.1 %; LYMPH % 25.5 %; LYMPH ABS # 1.75 K/uL (1.2-3.4); MEAN CELL VOLUME 96.5 fL (80-100); MEAN CORPUSCULAR HEMOGLOBIN 30.6 pg (25-34); MEAN CORPUSCULAR HGB CONC 31.7 g/dl (32-36); MEAN PLATELET VOLUME 11.2 fL (7.4-10.4); MONO % 7.7 %; NEUT % 64.1 %; PLATELET COUNT 235 K/uL (130-400); RED BLOOD COUNT 4.02 M/uL (4.2-5.4); WHITE BLOOD COUNT 6.87 K/uL (4.8-10.8)
[2017-11-09 09:10] LABS: ALT/SGPT 63 U/L (12-78); BLOOD UREA NITROGEN 19 mg/dl (7-18); BUN/CREATININE RATIO 55.7 (10-20); CALCIUM 8.9 mg/dl (8.5-10.1); CARBON DIOXIDE 28 mmol/L (21-32); CHLORIDE 108 mmol/L (98-107); CREATININE 0.33 mg/dl (0.60-1.20); GLUCOSE 64 mg/dl (70-99); POTASSIUM 3.9 mmol/L (3.5-5.1); SODIUM 140 mmol/L (136-145)
[2017-11-09 09:15] LABS: ALB/GLOB RATIO 0.6 (0.9-2); ALKALINE PHOSPHATASE 120 U/L (45-117); AST/SGOT 29 U/L (15-37); PREALBUMIN 13.5 mg/dl (20-40)
== END ==
LOC: C.LABUPNIT 08:49
PROVIDERS: ATTEND Nurse Practitioner Family
DX: D64.9 Anemia, unspecified (principal); G35 Multiple sclerosis

== ENCOUNTER → 2017-11-10 | Outpatient (CLI) | payer OTHER ==
[~2017-11-10] MED LIST changes: +ACET-1693 PO; -ACET325T96 PO; +AMOX1TAB43 PO; +ASCA500 PO; +ASPI-390 PO; +AZIT-57 PO; +Boost PO; +CEFT1INJ57 IV; +CLC150 PO; +CPR500 PO; +CRAN1TAB3 PO; +ENOX30IN4 SQ; +FLUC100T PO; +GUAI100S66 PO; +HPRF5 IV; +JUICE SUPPLEMENT PO; +KETO30IN6 IM; +LEVO1INJ IV; +LEVO1TAB35 PO; +LOPE-5 PO; +MECL1TAB40 PO; +MGNO400 PO; +MISCCAP80 PO; +MULT-513 PO; +OXY/15 PO; +OXYC-594 PO; +OXYC-739 PO; +POTA-639 PO; +POTA10CA28 PO; +POTTAB2 PO; +RXNS10 PO
== END ==
LOC: C.LABUPNIT 11:54
PROVIDERS: ATTEND Nurse Practitioner Family
DX: R19.7 Diarrhea, unspecified (principal)

== ENCOUNTER → 2017-11-14 | Outpatient (CLI) | payer OTHER | LOC: C.LABSPEC 13:45 | PROVIDERS: ATTEND Nurse Practitioner Family | DX: S31.000A Unspecified open wound of lower back and pelvis without penetration into retroperitoneum, initial encounter (principal); X58.XXXA Exposure to other specified factors, initial encounter ==

== ENCOUNTER → 2017-11-22 | Outpatient (CLI) | payer OTHER ==
[~2017-11-22] MED LIST changes: -ACET-1693 PO; +ACET325T96 PO; -AMOX1TAB43 PO; -ASCA500 PO; -ASPI-390 PO; -AZIT-57 PO; -Boost PO; -CEFT1INJ57 IV; -CLC150 PO; -CPR500 PO; -CRAN1TAB3 PO; -ENOX30IN4 SQ; -FLUC100T PO; -GUAI100S66 PO; -HPRF5 IV; -JUICE SUPPLEMENT PO; -KETO30IN6 IM; -LEVO1INJ IV; -LEVO1TAB35 PO; -LOPE-5 PO; -MECL1TAB40 PO; -MGNO400 PO; -MISCCAP80 PO; -MULT-513 PO; -OXY/15 PO; -OXYC-594 PO; -OXYC-739 PO; -POTA-639 PO; -POTA10CA28 PO; -POTTAB2 PO; -RXNS10 PO
== END ==
LOC: C.LABUPNIT 10:25
PROVIDERS: ATTEND Nurse Practitioner Family
DX: R82.90 Unspecified abnormal findings in urine (principal)

== ENCOUNTER → 2017-11-22 | Outpatient (CLI) | payer OTHER ==
[2017-11-22 11:48] LABS: BASO % 0.2 %; BASO ABS # 0.02 K/uL (0-0.2); EOS % 0.9 %; EOS ABS # 0.11 K/uL (0-0.5); HEMATOCRIT 36.1 % (37-47); HEMOGLOBIN 11.6 g/dL (12.0-16.0); IG# 0.03 K/uL (0.00-0.02); MEAN CELL VOLUME 93.5 fL (80-100); MEAN CORPUSCULAR HEMOGLOBIN 30.1 pg (25-34); MEAN CORPUSCULAR HGB CONC 32.1 g/dl (32-36); MEAN PLATELET VOLUME 10.9 fL (7.4-10.4); MONO % 4.3 %; MONO ABS # 0.54 K/uL (0.11-0.59); NEUT % 90.4 %; PLATELET COUNT 310 K/uL (130-400); RED CELL DISTRIBUTION WIDTH CV 13.1 % (11.5-14.5)
[2017-11-22 11:55] LABS: BLOOD UREA NITROGEN 23 mg/dl (7-18); CREATININE 0.39 mg/dl (0.60-1.20); GLUCOSE 142 mg/dl (70-99)
[2017-11-22 11:56] LABS: CALCIUM 8.5 mg/dl (8.5-10.1); CARBON DIOXIDE 23 mmol/L (21-32); POTASSIUM 3.4 mmol/L (3.5-5.1); SODIUM 138 mmol/L (136-145)
== END ==
LOC: C.LABUPNIT 10:47
PROVIDERS: ATTEND Nurse Practitioner Family
DX: R41.82 Altered mental status, unspecified (principal)

== ENCOUNTER → 2017-11-24 | Outpatient (CLI) | payer OTHER ==
[2017-11-24 08:23] LABS: BASO % 0.3 %; BASO ABS # 0.02 K/uL (0-0.2); EOS % 2.4 %; EOS ABS # 0.18 K/uL (0-0.5); HEMATOCRIT 35.3 % (37-47); HEMOGLOBIN 11.2 g/dL (12.0-16.0); IG# 0.03 K/uL (0.00-0.02); LYMPH % 25.9 %; LYMPH ABS # 1.94 K/uL (1.2-3.4); MEAN CELL VOLUME 93.6 fL (80-100); MEAN CORPUSCULAR HEMOGLOBIN 29.7 pg (25-34); MEAN CORPUSCULAR HGB CONC 31.7 g/dl (32-36); MEAN PLATELET VOLUME 10.5 fL (7.4-10.4); MONO ABS # 0.52 K/uL (0.11-0.59); NEUT ABS # 4.79 K/uL (1.4-6.5); PLATELET COUNT 332 K/uL (130-400); RED CELL DISTRIBUTION WIDTH CV 13.3 % (11.5-14.5); RED CELL DISTRIBUTION WIDTH SD 45.7 fL (36.4-46.3); WHITE BLOOD COUNT 7.48 K/uL (4.8-10.8)
== END | disposition home or self-care (01) ==
LOC: C.LABUPNIT 08:05
PROVIDERS: ATTEND Nurse Practitioner Family
DX: M62.81 Muscle weakness (generalized) (principal)

== ENCOUNTER → 2017-11-27 | Outpatient (CLI) | payer OTHER | LOC: C.LABUPNIT 07:31 | PROVIDERS: ATTEND Nurse Practitioner Family | DX: R48.8 Other symbolic dysfunctions (principal) ==

== ENCOUNTER → 2017-11-30 | Outpatient (CLI) | payer OTHER ==
[2017-11-30 08:36] LABS: BLOOD UREA NITROGEN 19 mg/dl (7-18); CALCIUM 9.4 mg/dl (8.5-10.1); CARBON DIOXIDE 28 mmol/L (21-32); CREATININE 0.39 mg/dl (0.60-1.20); GLUCOSE 73 mg/dl (70-99); POTASSIUM 4.2 mmol/L (3.5-5.1); SODIUM 139 mmol/L (136-145)
== END | disposition home or self-care (01) ==
LOC: C.LABUPNIT 07:49
PROVIDERS: ATTEND Nurse Practitioner Family
DX: L89.154 Pressure ulcer of sacral region, stage 4 (principal)

== ENCOUNTER → 2017-12-06 | Outpatient (CLI) | payer OTHER ==
[2017-12-06 12:40] LABS: INFLUENZA B ANTIGEN Neg for Influ B (NEG)
== END ==
LOC: C.LABUPNIT 11:32
PROVIDERS: ATTEND Nurse Practitioner Family
DX: R50.9 Fever, unspecified (principal)

== ENCOUNTER → 2017-12-19 | Outpatient (CLI) | payer OTHER ==
[~2017-12-19] MED LIST changes: +ACET-1693 PO; -ACET325T96 PO
== END ==
LOC: C.LABUPNIT 11:26
PROVIDERS: ATTEND Nurse Practitioner Family
DX: L89.154 Pressure ulcer of sacral region, stage 4 (principal)

== ENCOUNTER → 2017-12-20 | Outpatient (CLI) | payer OTHER | LOC: C.LABUPNIT 08:53 | PROVIDERS: ATTEND Nurse Practitioner Family | DX: R77.0 Abnormality of albumin (principal); E60 Dietary zinc deficiency ==

== ENCOUNTER → 2017-12-22 | Outpatient (CLI) | payer OTHER | LOC: C.LABUPNIT 08:40 | PROVIDERS: ATTEND Nurse Practitioner Family | DX: D64.9 Anemia, unspecified (principal) ==

== ENCOUNTER → 2017-12-25 | Outpatient (CLI) | payer OTHER ==
[~2017-12-25] MED LIST changes: +AMOX1TAB43 PO; +ASCA500 PO; +AZIT-57 PO; +CEFT1INJ57 IV; +CRAN1TAB3 PO; +LEVO1INJ IV; +LOPE-5 PO; +MECL1TAB40 PO; +MISCCAP80 PO; +MULT-513 PO; +OXYC-106 PO; +OXYC-739 PO; +POTA10CA28 PO
[2017-12-25 08:23] LABS: BASO % 0.3 %; BASO ABS # 0.02 K/uL (0-0.2); EOS % 2.1 %; EOS ABS # 0.16 K/uL (0-0.5); HEMATOCRIT 39.5 % (37-47); HEMOGLOBIN 12.7 g/dL (12.0-16.0); IG# 0.01 K/uL (0.00-0.02); LYMPH % 36.5 %; LYMPH ABS # 2.73 K/uL (1.2-3.4); MEAN CELL VOLUME 92.3 fL (80-100); MEAN CORPUSCULAR HEMOGLOBIN 29.7 pg (25-34); MEAN CORPUSCULAR HGB CONC 32.2 g/dl (32-36); MEAN PLATELET VOLUME 10.9 fL (7.4-10.4); MONO % 8.3 %; MONO ABS # 0.62 K/uL (0.11-0.59); NEUT % 52.7 %; NEUT ABS # 3.93 K/uL (1.4-6.5); PLATELET COUNT 267 K/uL (130-400); RED CELL DISTRIBUTION WIDTH CV 14.4 % (11.5-14.5); RED CELL DISTRIBUTION WIDTH SD 48.1 fL (36.4-46.3); WHITE BLOOD COUNT 7.47 K/uL (4.8-10.8)
== END ==
LOC: C.LABUPNIT 07:43
PROVIDERS: ATTEND Nurse Practitioner Family
DX: I10 Essential (primary) hypertension (principal)

== ENCOUNTER → 2017-12-26 | Outpatient (CLI) | payer OTHER ==
[2017-12-26 12:43] LABS: HEMATOCRIT 39.9 % (37-47); HEMOGLOBIN 12.8 g/dL (12.0-16.0); MEAN CELL VOLUME 90.5 fL (80-100); MEAN CORPUSCULAR HGB CONC 32.1 g/dl (32-36); PLATELET COUNT 264 K/uL (130-400); RED CELL DISTRIBUTION WIDTH CV 14.6 % (11.5-14.5); RED CELL DISTRIBUTION WIDTH SD 47.7 fL (36.4-46.3); WHITE BLOOD COUNT 28.29 K/uL (4.8-10.8)
[2017-12-26 13:01] LABS: INFLUENZA B ANTIGEN Neg for Influ B (NEG)
[2017-12-26 13:05] LABS: ALBUMIN 2.6 gm/dl (3.4-5.0); ALT/SGPT 116 U/L (12-78); BASO % 0.1 %; BASO ABS # 0.02 K/uL (0-0.2); BLOOD UREA NITROGEN 30 mg/dl (7-18); CALCIUM 9.4 mg/dl (8.5-10.1); CARBON DIOXIDE 25 mmol/L (21-32); CREATININE 1.17 mg/dl (0.60-1.20); GLUCOSE 161 mg/dl (70-99); IG# 0.14 K/uL (0.00-0.02); LYMPH ABS # 0.56 K/uL (1.2-3.4); MONO % 5.5 %; MONO ABS # 1.57 K/uL (0.11-0.59); NEUT % 91.9 %; POTASSIUM 4.3 mmol/L (3.5-5.1); SODIUM 137 mmol/L (136-145)
[2017-12-26 13:08] LABS: ALKALINE PHOSPHATASE 81 U/L (45-117); AST/SGOT 121 U/L (15-37); TOTAL PROTEIN 6.3 gm/dl (6.4-8.2)
== END | disposition home or self-care (01) ==
LOC: C.LABUPNIT 12:00
PROVIDERS: ATTEND Nurse Practitioner Family
DX: R41.82 Altered mental status, unspecified (principal); N39.0 Urinary tract infection, site not specified

== ENCOUNTER → 2017-12-27 | Outpatient (CLI) | payer OTHER ==
[2017-12-27 08:38] LABS: HEMATOCRIT 41.5 % (37-47); HEMOGLOBIN 13.5 g/dL (12.0-16.0); MEAN CELL VOLUME 91.2 fL (80-100); MEAN CORPUSCULAR HEMOGLOBIN 29.7 pg (25-34); MEAN CORPUSCULAR HGB CONC 32.5 g/dl (32-36); MEAN PLATELET VOLUME 11.4 fL (7.4-10.4); PLATELET COUNT 178 K/uL (130-400); RED CELL DISTRIBUTION WIDTH CV 14.8 % (11.5-14.5); RED CELL DISTRIBUTION WIDTH SD 49.5 fL (36.4-46.3); WHITE BLOOD COUNT 19.45 K/uL (4.8-10.8)
[2017-12-27 09:10] LABS: BLOOD UREA NITROGEN 24 mg/dl (7-18); CALCIUM 9.3 mg/dl (8.5-10.1); CARBON DIOXIDE 25 mmol/L (21-32); CREATININE 0.75 mg/dl (0.60-1.20); GLUCOSE 54 mg/dl (70-99); POTASSIUM 3.9 mmol/L (3.5-5.1); SODIUM 136 mmol/L (136-145)
[2017-12-27 09:13] LABS: BASO % 0.1 %; BASO ABS # 0.02 K/uL (0-0.2); EOS % 0.4 %; EOS ABS # 0.07 K/uL (0-0.5); IG# 0.07 K/uL (0.00-0.02); LYMPH % 6.3 %; LYMPH ABS # 1.22 K/uL (1.2-3.4); MONO % 3.8 %; MONO ABS # 0.73 K/uL (0.11-0.59); NEUT ABS # 17.34 K/uL (1.4-6.5)
== END ==
LOC: C.LABUPNIT 08:04
PROVIDERS: ATTEND Nurse Practitioner Family
DX: R41.82 Altered mental status, unspecified (principal)

== ENCOUNTER 2017-12-28 09:09 | Inpatient (IN) | payer OTHER ==
[~2017-12-28] VITALS: Ht 162.6 cm; Wt 39.3 kg
[~2017-12-28 09:09] MED LIST changes: -AMOX1TAB43 PO; -ASCA500 PO; -AZIT-57 PO; -CEFT1INJ57 IV; -CRAN1TAB3 PO; -LEVO1INJ IV; -LOPE-5 PO; -MECL1TAB40 PO; -MISCCAP80 PO; -MULT-513 PO; -OXYC-106 PO; -OXYC-739 PO; -POTA10CA28 PO
[2017-12-28] MEDS ORDERED: SODIUM CHLORIDE 0.9% 1000ML 1,000 ML IV STA (09:33)
[2017-12-28] MEDS ORDERED: LEVALBUTEROL 1.25MG/3ML NEB INH STA (09:34)
--- NOTE | 2017-12-28 10:01 | EMERGENCY ROOM VISIT NOTE ---
History Report prepared by Fidencio: Manfred Farley Under the Supervision of: Dr. Javier Liu M.D. First contact with patient: 09:26 Chief Complaint: RESPIRATORY PROBLEMS Nursing Triage Summary: treated for pneumonia since not getting better History of Present Illness This HPI is limited secondary to the confusion of the patient. The patient is a 72 year old female who presents to the Emergency Room with complaints of an altered mental status and confusion. The patient is currently complaining of a dry throat and mouth, but denies any abdominal pain. When asked when she had her Vera Catheter placed she stated that she did not currently have one, but she clearly does on exam. The patient was diagnosed with Pneumonia on the , 7 days ago. The patient denies being on oxygen at baseline. Source of History: patient History Limited By: AMS (confusion) Position: other (AMS) Quality: other (AMS) Associated Symptoms: No abdominal pain Review of Systems ROS limited secondary to altered mental status. Past Medical & Surgical Medical Problems: (1) Altered mental status (2) Altered mental status, unspecified (3) Benign hypertension (4) Chronic peptic ulcer (5) Hysterectomy (6) Intertrochanteric fracture of right hip (7) Intertrochanteric fracture of right hip (8) Migraine (9) Multiple sclerosis (10) Multiple sclerosis (11) Multiple sclerosis exacerbation (12) non cardiac chest pain related to gi (13) Sepsis (14) STAPHYLOCOCCAL SEPTICEMIA, NEC (15) UTI (urinary tract infection) Surgical Problems: (1) S/P partial gastrectomy Family History Breast cancer Diabetes mellitus FH: cholecystectomy FHx: heart disease Hypertension Social History Smoking Status: Former Smoker Alcohol Use: none Drug Use: none Housing Status: lives with family Occupation Status: retired Current/Historical Medications Scheduled Amitriptyline Hcl (Elavil), 75 MG PO HS Ascorbic Acid (Vitamin C), 500 MG PO DAILY Ceftriaxone Sod (Rocephin), 1 GM IV DAILY Cranberry (Vaccinium Macrocarp (Cranberry), 450 MG PO DAILY Gabapentin (Gabapentin), 800 MG PO TID Levofloxacin in D5w (Levofloxacin in 5% Dextro 250 mg/50Ml), 1 DOSE IV DAILY Loperamide Hcl (Imodium A-D), 2 MG PO DIRECTED Midodrine Hcl (Midodrine Hcl), 5 MG PO TID Multivitamins/Minerals (Mvi With Minerals), 1 TAB PO DAILY Oxycodone HCl (Oxycodone HCl ER), 20 MG PO BID Pantoprazole (Pantoprazole Sodium), 40 MG PO BID Potassium Chloride (Micro-K Ext Rel), 10 MEQ PO DAILY Prednisone Tab (Prednisone), 10 MG PO QAM Probiotic Product (Probiotic), 1 CAP PO DAILY Topiramate (Topiramate), 25 MG PO BID Scheduled PRN Acetaminophen (Tylenol), 1 SUPP WV Q6H PRN for MILD PAIN OR FEVER Acetaminophen Tab (Tylenol), 325 MG PO DAILY PRN for Pain or Fever Bisacodyl (Dulcolax), 1 SUPP WV Q4DAYS PRN for Constipation Magnesium Hydroxide (Milk Of Magnesia), 30 ML PO UD PRN for Constipation Meclizine HCl (Meclizine HCl), 12.5 MG PO Q8 PRN for Dizziness or Vertigo Ondansetron Hcl (Zofran), 4 MG PO Q8H PRN for Nausea Oxycodone/Acetaminophen 10MG/325MG (Percocet 10MG/325MG), 1 TAB PO Q4 PRN for Pain Sumatriptan Succinate (Imitrex), 100 MG PO UD PRN for Migraine Allergies Coded Allergies: Morphine (Verified Adverse Reaction, Intermediate, " MAKES ME MEAN" - CONFUSION, 12/28/17) Physical Exam Vital Signs Date Time Temp Pulse Resp B/P (MAP) Pulse Ox O2 Delivery O2 Flow Rate FiO2 12/28/17 13:31 93 20 107/66 95 Nasal Cannula 2.0 12/28/17 13:03 97 12/28/17 12:12 101 102/63 95 Nasal Cannula 2.0 12/28/17 12:00 95 Nasal Cannula 2.0 12/28/17 11:19 88 14 98 Nasal Cannula 2.0 12/28/17 11:01 79 16 118/63 96 Nasal Cannula 2.0 12/28/17 09:27 92 Nasal Cannula 2.0 12/28/17 09:24 36.6 102 20 124/72 90 Room Air 12/28/17 09:21 90 Room Air 12/28/17 09:18 99 Physical Exam GENERAL: Patient is cachectic in appearance. HEAD: Normocephalic atraumatic EYES: Ocular movements intact pupils equal and react to light OROPHARYNX mucous membranes are moist no exudates present no erythema or edema present NECK: Supple no nuchal rigidity CHEST: Good equal expansion. There is a port in place. LUNGS: Clear and equal to auscultation CARDIAC: Normal S1 and S2 ABDOMEN: Soft nontender no guarding BACK: No CVA tenderness EXTREMITIES: No pain upon palpation normal muscle strength in all groups no clubbing cyanosis or edema NEURO: Patient is following commands and answering questions appropriately. Alert and oriented x3 Cranial Nerves 2-12 grossly intact : Vera Catheter in place. Medical Decision & Procedures ER Provider Diagnostic Interpretation: Radiology results as stated below per my review and radiologist interpretation: CHEST ONE VIEW PORTABLE CLINICAL HISTORY: 72 years-old Female presenting with Sepsis. TECHNIQUE: Portable upright AP view of the chest was obtained. COMPARISON: 08/17/2017. FINDINGS: Left subclavian Mediport terminates at the superior cavoatrial junction. Atherosclerosis of the aortic arch. Cardiac silhouette top normal in size. Chronic elevation of the left hemidiaphragm. Left retrocardiac opacity increased from prior. Right lung and pleural space clear. No pneumothorax. Extensive thoracic fusion hardware. An anastomotic suture lines noted in the epigastrium. IMPRESSION: 1. Interval development of extensive left lower lobe consolidation. Infection cannot be excluded. Electronically signed by: Ho Shafer M.D. 12/28/2017 9:58 AM Dictated Date/Time: 12/28/2017 9:56 AM Laboratory Results Test 12/28/17 09:40 12/28/17 09:57 12/28/17 10:06 12/28/17 11:35 Influenza Type A Antigen Neg for Influ A (NEG) Influenza Type B Antigen Neg for Influ B (NEG) Prothrombin Time 10.6 SECONDS (9.0-12.0) Prothromb Time International Ratio 1.0 (0.9-1.1) Activated Partial Thromboplast Time 34.1 SECONDS (21.0-31.0) Partial Thromboplastin Ratio 1.3 Total Creatine Kinase 37 U/L (26-192) Creatine Kinase MB 0.6 ng/ml (0.5-3.6) Creatine Kinase MB Ratio 1.6 (0-3.0) Troponin I < 0.015 ng/ml (0-0.045) Bedside Lactic Acid Venous 0.91 mmol/L (0.90-1.70) Urine Color DK YELLOW Urine Appearance CLOUDY (CLEAR) Urine pH 7.0 (4.5-7.5) Urine Specific [place] 1.020 (1.000-1.030) Urine Protein TRACE (NEG) Urine Glucose (UA) NEG (NEG) Urine Ketones NEG (NEG) Urine Occult Blood 1+ (NEG) Urine Nitrite NEG (NEG) Urine Bilirubin NEG (NEG) Urine Urobilinogen NEG (NEG) Urine Leukocyte Esterase LARGE (NEG) Urine WBC (Auto) >30 /hpf (0-5) Urine RBC (Auto) 5-10 /hpf (0-4) Urine Hyaline Casts (Auto) 5-10 /lpf (0-5) Urine Epithelial Cells (Auto) >30 /lpf (0-5) Urine Bacteria (Auto) NEG (NEG) Urine Crystals CALCIUM OXALATE (NONE Urine Pathogenic Casts 0-3 WAXY CASTS /lpf (0) Urine Yeast (Auto) (NONE PRSENT) Labs reviewed by ED physician. Medications Administered Medications (Trade) Dose Ordered Sig/Melvin Route Start Time Stop Time Status Last Admin Dose Admin Sodium Chloride 1,000 ml @ 999 mls/hr Q1H1M STAT IV 12/28/17 09:33 12/28/17 10:33 DC 12/28/17 11:10 999 MLS/HR Levalbuterol (Xopenex 1.25MG/ 3ML Neb) 1.25 mg NOW STAT INH 12/28/17 09:34 12/28/17 09:36 DC 12/28/17 09:34 1.25 MG Cefepime HCl 2000 mg/Dextrose 122 ml @ 200 mls/hr NOW STAT IV 12/28/17 10:30 12/28/17 11:06 DC 12/28/17 11:11 200 MLS/HR Levofloxacin (Levaquin / D5W) 750 mg NOW STAT IV 12/28/17 10:30 12/28/17 10:32 DC 12/28/17 11:27 750 MG Vancomycin HCl (Vancomycin 1gm/ 270ml Nss) 1 gm NOW STAT IV 12/28/17 10:30 12/28/17 10:32 DC 12/28/17 13:16 1 GM Sodium Chloride 1,000 ml @ 50 mls/hr Q20H IV 12/28/17 14:10 01/27/18 14:09 12/28/17 18:10 50 MLS/HR ED Course 0931: Past medical records reviewed. The patient was evaluated in room B7. A complete history and physical examination was performed. 0933: Ordered Sodium Chloride 1000 mL @ 999 mL/hr IV. 0934: Ordered Levalbuterol 1.25 mg INH. 1030: Ordered Vancomycin HCl 1 gm IV, Levofloxacin 750 mg IV, Cefepime HCl 122 mL @ 200 mL/hr IV. 1033: I discussed the case with Dr. Rob Aguilar. He will evaluate the patient for further treatment. Medical Decision Differential diagnosis: Etiologies such as sepsis, UTI, pneumonia, metabolic, electrolyte abnormalities , cardiac sources, intracerebral event, toxicologic, neurologic, as well as others were entertained. This is also she presents emergency department complaining of altered mental slowness. Addition the patient is on for the pneumonia she is also positive for the flu she is altered and has a large elevation in white blood cell count. For this, the patient should be pancultured up and started him on antibiotics for her pneumonia. She was given a breathing treatments in the emergency department and started on antibiotics. Medication Reconcilliation Current Medication List: was personally reviewed by me Blood Pressure Screening Patient's blood pressure: Normal blood pressure Consults Time Called: 1038 Consulting Physician: Dr. Rob Aguilar Returned Call: [phone] I discussed the case with Dr. Rob Aguilar. He will evaluate the patient for further treatment. Impression Primary Impression: Pneumonia Critical Care I have personally spent greater than 30 minutes of critical care time in the direct management of this patient. This includes bedside care, interpretation of diagnostic studies, and testing, discussion with consultants, patient, and family members, and other required patient management activities. This 30 minutes is in excess of all separately billable procedures. Scribe Attestation The scribe's documentation has been prepared under my direction and personally reviewed by me in its entirety. I confirm that the note above accurately reflects all work, treatment, procedures, and medical decision making performed by me. Departure Information Dispostion Being Evaluated By Hospitalist Referrals Effie Ngo (PCP) Patient Instructions My [facility] Problem Qualifiers Primary Impression: Pneumonia Pneumonia type: due to unspecified organism Laterality: unspecified laterality Lung location: unspecified part of lung Qualified Codes: J18.9 - Pneumonia, unspecified organism
[2017-12-28] MEDS ORDERED: CEFEPIME IV 2,000 MG in DEXTROSE 5% 100ML 100 ML IV STA (10:30)
[2017-12-28] MEDS ORDERED: VANCOMYCIN 1GM/270ML NSS IV STA ×2 (10:30→14:01)
[2017-12-28] MEDS ORDERED: LEVAQUIN 750MG / 150ML D5W IV STA (10:30)
[2017-12-28 10:38] LABS: HEMATOCRIT 34.7 % (37-47); HEMOGLOBIN 11.3 g/dL (12.0-16.0); MEAN CELL VOLUME 89.9 fL (80-100); MEAN CORPUSCULAR HEMOGLOBIN 29.3 pg (25-34); MEAN CORPUSCULAR HGB CONC 32.6 g/dl (32-36); MEAN PLATELET VOLUME 10.7 fL (7.4-10.4); PLATELET COUNT 192 K/uL (130-400); RED CELL DISTRIBUTION WIDTH CV 14.9 % (11.5-14.5); RED CELL DISTRIBUTION WIDTH SD 48.9 fL (36.4-46.3)
[2017-12-28 10:43] LABS: PTT PATIENT 34.1 SECONDS (21.0-31.0)
[2017-12-28 10:50] LABS: ALBUMIN 2.2 gm/dl (3.4-5.0); ALT/SGPT 66 U/L (12-78); BLOOD UREA NITROGEN 17 mg/dl (7-18); CALCIUM 8.7 mg/dl (8.5-10.1); CARBON DIOXIDE 22 mmol/L (21-32); CREATININE 0.39 mg/dl (0.60-1.20); GLUCOSE 102 mg/dl (70-99); SODIUM 137 mmol/L (136-145)
[2017-12-28] MEDS ORDERED: CRAN1TAB3 PO ×2 (10:51)
[2017-12-28] MEDS ORDERED: MISCCAP80 PO ×2 (10:51)
[2017-12-28] MEDS ORDERED: CEFT1INJ57 IV ×2 (10:51)
[2017-12-28] MEDS ORDERED: LOPE-5 PO ×2 (10:51)
[2017-12-28] MEDS ORDERED: OXYC-106 PO ×2 (10:51)
[2017-12-28] MEDS ORDERED: MULT-513 PO ×2 (10:51)
[2017-12-28] MEDS ORDERED: ASCA500 PO ×2 (10:51)
[2017-12-28] MEDS ORDERED: POTA10CA28 PO ×2 (10:51)
[2017-12-28] MEDS ORDERED: LEVO1INJ IV ×2 (10:51)
[2017-12-28] MEDS ORDERED: MECL1TAB40 PO ×2 (10:51)
[2017-12-28] MEDS ORDERED: OXYC-739 PO ×2 (10:51)
[2017-12-28 10:55] LABS: ALKALINE PHOSPHATASE 93 U/L (45-117); AST/SGOT 49 U/L (15-37); CKMB 0.6 ng/ml (0.5-3.6); TOTAL PROTEIN 5.8 gm/dl (6.4-8.2)
[2017-12-28 11:03] LABS: INFLUENZA B ANTIGEN Neg for Influ B (NEG)
[2017-12-28 11:05] LABS: BASO % 0.1 %; BASO ABS # 0.02 K/uL (0-0.2); EOS % 0.3 %; EOS ABS # 0.04 K/uL (0-0.5); IG# 0.06 K/uL (0.00-0.02); LYMPH % 2.4 %; LYMPH ABS # 0.36 K/uL (1.2-3.4); MONO % 2.4 %; MONO ABS # 0.37 K/uL (0.11-0.59); NEUT % 94.4 %; NEUT ABS # 14.35 K/uL (1.4-6.5)
[2017-12-28 11:19] VITALS: PULSE 88; O2SAT 98
[2017-12-28 12:00] VITALS: O2SAT 95; Ht 162.6 cm; Wt 39.3 kg
[2017-12-28] MEDS ORDERED: SUMATRIPTAN SUCC TAB 100 MG TAB PO PRN (14:15)
[2017-12-28] MEDS ORDERED: ENOXAPARIN 30 MG/0.3 ML SYR SC SCH (14:15)
[2017-12-28] MEDS ORDERED: ACETAMINOPHEN 325 MG TAB PO PRN (14:15)
[2017-12-28] MEDS ORDERED: ZOLPIDEM TARTRATE 5 MG TAB PO PRN ×2 (14:15)
[2017-12-28] MEDS ORDERED: BISACODYL 10 MG SUPP PR PRN (14:15)
[2017-12-28] MEDS ORDERED: POLYETHYLENE (MIRALAX) 17 GM PACK PO PRN (14:15)
[2017-12-28] MEDS ORDERED: MAGNESIUM HYDROXIDE SUSP 30 ML UDC PO PRN ×2 (14:15)
[2017-12-28] MEDS ORDERED: ALUMINUM/MAGNESIUM/SIMETH (MAALOX MAX) 30 ML UDC PO PRN (14:15)
[2017-12-28] MEDS ORDERED: ONDANSETRON INJ 2 MG/ML 2 ML VIAL IV PRN (14:15)
[2017-12-28] MEDS ORDERED: ONDANSETRON 4 MG TAB PO PRN (14:15)
[2017-12-28] MEDS ORDERED: ACETAMINOPHEN 650 MG SUPP PR PRN (14:15)
[2017-12-28] MEDS ORDERED: LEVALBUTEROL/IPRATROPIUM NEB INH SCH (15:00)
--- NOTE | 2017-12-28 15:02 | History and Physical ---
History & Physical Date & Time of Service: Dec 28, 2017 at 14:56 Chief Complaint: Respiratory Primary Care Physician: Effie Ngo History of Present Illness Source: patient, family, hospital records 72 years old female with past medical history of MS, patient is wheelchair- bound currently resident at [facility] facility presented to the hospital with 3 days history of upper respiratory tract infection and productive cough. Patient yet said that her chest muscles are weak and she is not able to produce anything in her cough most of the time. She also had intermittent fever and chills. In the ED patient has a chest x-ray that showed extensive left lower lobe pneumonia. Patient denies any chest pain denies any hemoptysis. Patient admits to urinary incontinence since she had the MS, she does have history of urinary retention in the past but currently she said she just complaining from the incontinence. Past Medical/Surgical History Medical Problems: (1) Benign hypertension Status: Chronic (2) Chronic peptic ulcer Status: Chronic (3) Hysterectomy Status: Resolved (4) Migraine Status: Chronic (5) Multiple sclerosis Status: Chronic (6) Multiple sclerosis Status: Chronic (7) Sepsis Status: Resolved (8) STAPHYLOCOCCAL SEPTICEMIA, NEC Status: Resolved Surgical Problems: (1) S/P partial gastrectomy Status: Chronic Family History Breast cancer Diabetes mellitus FH: cholecystectomy FHx: heart disease Hypertension Social History Smoking Status: Former Smoker Drug Use: none Housing status: [facility] Occupational Status: retired Immunizations History of Influenza Vaccine: Yes Influenza Vaccine Date: Sep 09, 2013 History of Tetanus Vaccine?: Yes Tetanus Immunization Date: Oct 12, 2002 History of Pneumococcal: UNSURE Pneumococcal Date: Sep 03, 2011 History of Hepatitis B Vaccine: No 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 Allergies Coded Allergies: Morphine (Verified Adverse Reaction, Intermediate, " MAKES ME MEAN" - CONFUSION, 12/28/17) Home Medications Scheduled Amitriptyline Hcl (Elavil), 75 MG PO HS Ascorbic Acid (Vitamin C), 500 MG PO DAILY Ceftriaxone Sod (Rocephin), 1 GM IV DAILY Cranberry (Vaccinium Macrocarp (Cranberry), 450 MG PO DAILY Gabapentin (Gabapentin), 800 MG PO TID Levofloxacin in D5w (Levofloxacin in 5% Dextro 250 mg/50Ml), 1 DOSE IV DAILY Loperamide Hcl (Imodium A-D), 2 MG PO DIRECTED Midodrine Hcl (Midodrine Hcl), 5 MG PO TID Multivitamins/Minerals (Mvi With Minerals), 1 TAB PO DAILY Oxycodone HCl (Oxycodone HCl ER), 20 MG PO BID Pantoprazole (Pantoprazole Sodium), 40 MG PO BID Potassium Chloride (Micro-K Ext Rel), 10 MEQ PO DAILY Prednisone Tab (Prednisone), 10 MG PO QAM Probiotic Product (Probiotic), 1 CAP PO DAILY Topiramate (Topiramate), 25 MG PO BID Scheduled PRN Acetaminophen (Tylenol), 1 SUPP MS Q6H PRN for MILD PAIN OR FEVER Acetaminophen Tab (Tylenol), 325 MG PO DAILY PRN for Pain or Fever Bisacodyl (Dulcolax), 1 SUPP MS Q4DAYS PRN for Constipation Magnesium Hydroxide (Milk Of Magnesia), 30 ML PO UD PRN for Constipation Meclizine HCl (Meclizine HCl), 12.5 MG PO Q8 PRN for Dizziness or Vertigo Ondansetron Hcl (Zofran), 4 MG PO Q8H PRN for Nausea Oxycodone/Acetaminophen 10MG/325MG (Percocet 10MG/325MG), 1 TAB PO Q4 PRN for Pain Sumatriptan Succinate (Imitrex), 100 MG PO UD PRN for Migraine Review of Systems Review of system Constitutional: She has fever and chills, generalized weakness and fatigue Eyes: no blurring of vision / no eye pain / no discharge / no redness ENT: no hearing loss / no epistaxis /no swallowing problems Respiratory: Intermittent productive cough and shortness of breath/ no hemoptysis Cardiovascular: no Chest pain / no lower extremity edema / no palpitation Abdomen: no pain / no nausea / no vomiting / no constipation Musculoskeletal: no joint pain / no muscle pain / no joint swelling Genitourinary: no dysuria / no incontinence / no urinary retention Neurologic: no focal weakness / no numbness/tingling / no ataxia Psychiatric: no depression symptoms / no anxiety / no insomnia Endocrine: no excessive thirst / no excessive urination Hematologic: no abnormal bleeding / no bruising / no LN swelling Skin: No rash / no pallor Physical Exam Vital Signs Date Time Temp Pulse Resp B/P (MAP) Pulse Ox O2 Delivery O2 Flow Rate FiO2 12/28/17 14:36 103 16 120/66 96 Room Air 12/28/17 13:31 93 20 107/66 95 Nasal Cannula 2.0 12/28/17 13:03 97 12/28/17 12:12 101 102/63 95 Nasal Cannula 2.0 12/28/17 12:00 95 Nasal Cannula 2.0 12/28/17 11:19 88 14 98 Nasal Cannula 2.0 12/28/17 11:01 79 16 118/63 96 Nasal Cannula 2.0 12/28/17 09:27 92 Nasal Cannula 2.0 12/28/17 09:24 36.6 102 20 124/72 90 Room Air 12/28/17 09:21 90 Room Air 12/28/17 09:18 99 Physical examination General patient appears to be in mild distress HEENT: Atraumatic , normocephalic /no jaundice /no pallor /anicteric /no dry mucous membrane /normal external ear inspection Neck: Supple /no swelling /central trach Heart: S1/S2 normal/regular rate and rhythm/no gallop /no rub /no murmur Lungs: Air entry decreased bilaterally, she does have bilateral coarse rhonchi. Left lower lung egophony Abdomen: Soft/nontender/no guarding/no rebound/no organomegaly/no pulsatile mass Musculoskeletal: Disuse muscle wasting from her MS Neuro exam: Awake alert oriented 3/cranial nerves II through XII appear to be intact/sensation intact/functional quadriplegia from MS Psychiatric evaluation: No depressed mood/normal affect Skin: No rash on exposed skin area/no erythema Extremity: Normal pulse/no pitting edema/no clubbing or cyanosis Endocrine/lymphatic: No obvious lymphadenopathy /no lymphedema Diagnostics Laboratory Results Results Past 24 Hours Test 12/28/17 09:40 12/28/17 09:57 12/28/17 10:06 12/28/17 11:35 Range/Units Influenza Type A Antigen Neg for Influ A NEG Influenza Type B Antigen Neg for Influ B NEG White Blood Count 15.20 4.8-10.8 K/uL Red Blood Count 3.86 4.2-5.4 M/uL Hemoglobin 11.3 12.0-16.0 g/dL Hematocrit 34.7 37-47 % Mean Corpuscular Volume 89.9 80-100 fL Mean Corpuscular Hemoglobin 29.3 25-34 pg Mean Corpuscular Hemoglobin Concent 32.6 32-36 g/dl Platelet Count 192 130-400 K/uL Mean Platelet Volume 10.7 7.4-10.4 fL Neutrophils (%) (Auto) 94.4 % Lymphocytes (%) (Auto) 2.4 % Monocytes (%) (Auto) 2.4 % Eosinophils (%) (Auto) 0.3 % Basophils (%) (Auto) 0.1 % Neutrophils # (Auto) 14.35 1.4-6.5 K/uL Lymphocytes # (Auto) 0.36 1.2-3.4 K/uL Monocytes # (Auto) 0.37 0.11-0.59 K/uL Eosinophils # (Auto) 0.04 0-0.5 K/uL Basophils # (Auto) 0.02 0-0.2 K/uL RDW Standard Deviation 48.9 36.4-46.3 fL RDW Coefficient of Variation 14.9 11.5-14.5 % Immature Granulocyte % (Auto) 0.4 % Immature Granulocyte # (Auto) 0.06 0.00-0.02 K/uL Prothrombin Time 10.6 9.0-12.0 SECONDS Prothromb Time International Ratio 1.0 0.9-1.1 Activated Partial Thromboplast Time 34.1 21.0-31.0 SECONDS Partial Thromboplastin Ratio 1.3 Sodium Level 137 136-145 mmol/L Potassium Level 4.0 3.5-5.1 mmol/L Chloride Level 107 98-107 mmol/L Carbon Dioxide Level 22 21-32 mmol/L Anion Gap 8.0 3-11 mmol/L Blood Urea Nitrogen 17 7-18 mg/dl Creatinine 0.39 0.60-1.20 mg/dl Est Creatinine Clear Calc Drug Dose 87.1 ml/min Estimated GFR () 123.3 Estimated GFR (Non- 106.4 BUN/Creatinine Ratio 44.4 10-20 Random Glucose 102 70-99 mg/dl Calcium Level 8.7 8.5-10.1 mg/dl Total Bilirubin 0.3 0.2-1 mg/dl Aspartate Amino Transf (AST/SGOT) 49 15-37 U/L Alanine Aminotransferase (ALT/SGPT) 66 12-78 U/L Alkaline Phosphatase 93 45-117 U/L Total Creatine Kinase 37 26-192 U/L Creatine Kinase MB 0.6 0.5-3.6 ng/ml Creatine Kinase MB Ratio 1.6 0-3.0 Troponin I < 0.015 0-0.045 ng/ml Total Protein 5.8 6.4-8.2 gm/dl Albumin 2.2 3.4-5.0 gm/dl Globulin 3.6 2.5-4.0 gm/dl Albumin/Globulin Ratio 0.6 0.9-2 Bedside Lactic Acid Venous 0.91 0.90-1.70 mmol/L Urine Color DK YELLOW Urine Appearance CLOUDY CLEAR Urine pH 7.0 4.5-7.5 Urine Specific [place] 1.020 1.000-1.030 Urine Protein TRACE NEG Urine Glucose (UA) NEG NEG Urine Ketones NEG NEG Urine Occult Blood 1+ NEG Urine Nitrite NEG NEG Urine Bilirubin NEG NEG Urine Urobilinogen NEG NEG Urine Leukocyte Esterase LARGE NEG Urine WBC (Auto) >30 0-5 /hpf Urine RBC (Auto) 5-10 0-4 /hpf Urine Hyaline Casts (Auto) 5-10 0-5 /lpf Urine Epithelial Cells (Auto) >30 0-5 /lpf Urine Bacteria (Auto) NEG NEG Urine Crystals CALCIUM OXALATE NONE PRSENT Urine Pathogenic Casts 0-3 WAXY CASTS 0 /lpf Urine Yeast (Auto) NONE PRSENT Microbiology Results 12/28/17 Blood Culture, Received Pending 12/28/17 Blood Culture, Received Pending 12/28/17 Urine Culture, Received Pending Impression Assessment and Plan 19 years old female presented to the emergency room on December 28 with left lower lobe pneumonia Assessment Hypoxic respiratory failure present on admission Left lower lobe pneumonia, likely bacterial Sepsis present on admission secondary to above Advanced MS/functional quadriplegia wheelchair-bound severe protein calorie malnutrition Urinary incontinence with history of urinary retention in the past HTN depression/anxiety History of PUD/reflux Plan Admit patient to telemetry Oxygen supplement as per protocol Blood culture/sputum culture Influenza virus screen and PCR Urine legionella antigen Initiate broad-spectrum antibiotics covering typical and atypical microorganisms ; vancomycin/azithromycin/ceftriaxone Start patient on lactobacillus to prevent C. difficile Continue home medications IV fluid hydration as needed Monitor labs in a.m. Bronchodilators Monitor oxygen saturation DVT prophylaxis/heparin subcutaneous Advanced Directives Existing Living Will: Yes Existing Power of Tobacco Weigher: Yes VTE Prophylaxis VTE Risk Assessment Done? Y/N: Yes Risk Level: Moderate
[2017-12-28] MEDS ORDERED: VANCOMYCIN CONSULT ACTIVE PRN (15:15)
--- NOTE | 2017-12-28 16:17 | Pharmacy Progress Note ---
Pharmacy Antibiotic Consult Date of Service: Dec 28, 2017. Pharmacy Dosing Scope Pharmacy is consulted to initiate vancomycin IV dosing therapy, order appropriate labs and adjust drug dose/frequency. Subjective The patient is a 72 year old female admitted on 12/28 . Objective Height (Feet): 5 Height (Inches): 4.00 Weight (Kilograms): 41.100 Lab Results (24hrs): Test 12/28/17 09:40 12/28/17 09:57 12/28/17 10:06 12/28/17 11:35 Influenza Type A Antigen Neg for Influ A (NEG) Influenza Type B Antigen Neg for Influ B (NEG) White Blood Count 15.20 K/uL (4.8-10.8) Red Blood Count 3.86 M/uL (4.2-5.4) Hemoglobin 11.3 g/dL (12.0-16.0) Hematocrit 34.7 % (37-47) Mean Corpuscular Volume 89.9 fL (80-100) Mean Corpuscular Hemoglobin 29.3 pg (25-34) Mean Corpuscular Hemoglobin Concent 32.6 g/dl (32-36) Platelet Count 192 K/uL (130-400) Mean Platelet Volume 10.7 fL (7.4-10.4) Neutrophils (%) (Auto) 94.4 % Lymphocytes (%) (Auto) 2.4 % Monocytes (%) (Auto) 2.4 % Eosinophils (%) (Auto) 0.3 % Basophils (%) (Auto) 0.1 % Neutrophils # (Auto) 14.35 K/uL (1.4-6.5) Lymphocytes # (Auto) 0.36 K/uL (1.2-3.4) Monocytes # (Auto) 0.37 K/uL (0.11-0.59) Eosinophils # (Auto) 0.04 K/uL (0-0.5) Basophils # (Auto) 0.02 K/uL (0-0.2) RDW Standard Deviation 48.9 fL (36.4-46.3) RDW Coefficient of Variation 14.9 % (11.5-14.5) Immature Granulocyte % (Auto) 0.4 % Immature Granulocyte # (Auto) 0.06 K/uL (0.00-0.02) Prothrombin Time 10.6 SECONDS (9.0-12.0) Prothromb Time International Ratio 1.0 (0.9-1.1) Activated Partial Thromboplast Time 34.1 SECONDS (21.0-31.0) Partial Thromboplastin Ratio 1.3 Sodium Level 137 mmol/L (136-145) Potassium Level 4.0 mmol/L (3.5-5.1) Chloride Level 107 mmol/L (98-107) Carbon Dioxide Level 22 mmol/L (21-32) Anion Gap 8.0 mmol/L (3-11) Blood Urea Nitrogen 17 mg/dl (7-18) Creatinine 0.39 mg/dl (0.60-1.20) Est Creatinine Clear Calc Drug Dose 87.1 ml/min Estimated GFR () 123.3 Estimated GFR (Non- 106.4 BUN/Creatinine Ratio 44.4 (10-20) Random Glucose 102 mg/dl (70-99) Calcium Level 8.7 mg/dl (8.5-10.1) Total Bilirubin 0.3 mg/dl (0.2-1) Aspartate Amino Transf (AST/SGOT) 49 U/L (15-37) Alanine Aminotransferase (ALT/SGPT) 66 U/L (12-78) Alkaline Phosphatase 93 U/L (45-117) Total Creatine Kinase 37 U/L (26-192) Creatine Kinase MB 0.6 ng/ml (0.5-3.6) Creatine Kinase MB Ratio 1.6 (0-3.0) Troponin I < 0.015 ng/ml (0-0.045) Total Protein 5.8 gm/dl (6.4-8.2) Albumin 2.2 gm/dl (3.4-5.0) Globulin 3.6 gm/dl (2.5-4.0) Albumin/Globulin Ratio 0.6 (0.9-2) Bedside Lactic Acid Venous 0.91 mmol/L (0.90-1.70) Urine Color DK YELLOW Urine Appearance CLOUDY (CLEAR) Urine pH 7.0 (4.5-7.5) Urine Specific [place] 1.020 (1.000-1.030) Urine Protein TRACE (NEG) Urine Glucose (UA) NEG (NEG) Urine Ketones NEG (NEG) Urine Occult Blood 1+ (NEG) Urine Nitrite NEG (NEG) Urine Bilirubin NEG (NEG) Urine Urobilinogen NEG (NEG) Urine Leukocyte Esterase LARGE (NEG) Urine WBC (Auto) >30 /hpf (0-5) Urine RBC (Auto) 5-10 /hpf (0-4) Urine Hyaline Casts (Auto) 5-10 /lpf (0-5) Urine Epithelial Cells (Auto) >30 /lpf (0-5) Urine Bacteria (Auto) NEG (NEG) Urine Crystals CALCIUM OXALATE (NONE Urine Pathogenic Casts 0-3 WAXY CASTS /lpf (0) Urine Yeast (Auto) (NONE PRSENT) Micro Results: Date/Time Source Procedure Growth Status 12/28/17 10:15 Blood Blood Culture Pending Received 12/28/17 09:57 Blood Blood Culture Pending Received 12/28/17 11:35 Urine , Clean Catch Urine Culture Pending Received Recent Pertinent Medications Patient was receiving rocephin/levaquin outpatient- Assessment & Plan Assessment: * 72 year old female with MS/quadriplegia with LLL pneumonia * WBC 15.2 * Starting vancomycin/cefepime/azithromycin Plan: Loading dose: 1000 mg (24 mg/kg) IV X 1 dose then: 750 mg (18 mg/kg) q12H Population pk: age max CrCl 80, SCr 0.39, T1/2 estimate ~8 hours, Ke 0.0708 Reviewed past admissions, 4 years ago patient with low troughs previously and required q8h dosing, starting with a slighlty higher dose with extended frequency. Goal trough level estimate: between 15-20 mcg/mL. Trough ordered for 12/30 @ 0830 Pharmacy will continue to follow and will adjust dose/frequency as necessary. Thank you
[2017-12-28 16:54] VITALS: BP 134/68; PULSE 95; TEMP 36.8; O2SAT 93
[2017-12-28] MEDS: LACTOBACILLUS ACIDOPHILUS (FLORANEX) TAB PO SCH (18:07)
[2017-12-28] MEDS: MIDODRINE 2.5 MG TAB PO SCH (18:08)
[2017-12-28] MEDS: SODIUM CHLORIDE 0.9% 1000ML 1,000 ML IV SCH (18:10)
[2017-12-28] MEDS: HEPARIN SOD 5000 UNIT/0.5 ML CARP SQ SCH (19:14)
[2017-12-28 19:26] VITALS: BP 144/74; PULSE 90; TEMP 37; O2SAT 95
[2017-12-28] MEDS: CEFEPIME IV 2,000 MG in SYRINGE 7.5 ML IV SCH (19:28)
[2017-12-28] MEDS: VANCOMYCIN INJ 750 MG in SODIUM CHLORIDE 0.9% 250ML 250 ML IV SCH (19:31)
[2017-12-28] MEDS: PANTOprazole SOD 40 MG TAB PO SCH (19:32)
[2017-12-28] MEDS: TOPIRAMATE 25 MG TAB PO SCH (19:32)
[2017-12-28] MEDS: GABAPENTIN 800 MG TAB PO SCH (19:33)
[2017-12-28] MEDS: AMITRIPTYLINE HCL 25 MG TAB PO SCH (19:33)
[2017-12-28] MEDS: OXYCODONE/ACETAMINOPHEN 10/325MG TAB PO PRN (19:45)
[2017-12-28] MEDS: LEVALBUTEROL 0.63MG/3 ML NEB INH SCH (19:58)
[2017-12-28] MEDS: IPRATROPIUM BROMIDE NEB SOLN 0.02% 2.5 ML VIAL INH SCH (19:58)
[2017-12-28] MEDS ORDERED: CEFEPIME IV 2,000 MG in DEXTROSE 5% 100ML 100 ML IV SCH (20:00)
[2017-12-28 20:01] VITALS: PULSE 73; O2SAT 98
[2017-12-28] MEDS: OXYCODONE HCL 20 MG TABCR (OXYCONTIN) PO SCH (21:20)
[2017-12-28 23:33] VITALS: BP 129/72; PULSE 101; TEMP 36.8; O2SAT 92
[2017-12-29] VITALS (13 sets, daily range): BP systolic 112–136; BP diastolic 65–80; PULSE 81–125; TEMP 36.5–39.5; O2SAT 88–100
[2017-12-29] MEDS: IPRATROPIUM BROMIDE NEB SOLN 0.02% 2.5 ML VIAL INH SCH ×4 (01:59→19:08)
[2017-12-29] MEDS: LEVALBUTEROL 0.63MG/3 ML NEB INH SCH ×4 (01:59→19:08)
[2017-12-29] MEDS ORDERED: NURSING VERBAL MED ORDER ONE (03:45)
[2017-12-29] MEDS: CEFEPIME IV 2,000 MG in SYRINGE 7.5 ML IV SCH ×3 (03:45→20:24)
[2017-12-29] MEDS ORDERED: ACETAMINOPHEN IV ONE (04:00)
[2017-12-29] MEDS: HEPARIN SOD 5000 UNIT/0.5 ML CARP SQ SCH ×2 (06:19→18:50)
[2017-12-29 06:38] LABS: HEMATOCRIT 32.9 % (37-47); HEMOGLOBIN 10.7 g/dL (12.0-16.0); MEAN CELL VOLUME 90.1 fL (80-100); MEAN CORPUSCULAR HEMOGLOBIN 29.3 pg (25-34); MEAN CORPUSCULAR HGB CONC 32.5 g/dl (32-36); MEAN PLATELET VOLUME 10.8 fL (7.4-10.4); PLATELET COUNT 164 K/uL (130-400); RED CELL DISTRIBUTION WIDTH CV 14.8 % (11.5-14.5); RED CELL DISTRIBUTION WIDTH SD 49.4 fL (36.4-46.3); WHITE BLOOD COUNT 9.86 K/uL (4.8-10.8)
[2017-12-29 07:11] LABS: CALCIUM 8.4 mg/dl (8.5-10.1); CREATININE 0.34 mg/dl (0.60-1.20); POTASSIUM 3.2 mmol/L (3.5-5.1)
[2017-12-29 07:13] LABS: TOTAL PROTEIN 5.7 gm/dl (6.4-8.2)
[2017-12-29 07:20] LABS: BASO % 0.1 %; BASO ABS # 0.01 K/uL (0-0.2); EOS % 0.1 %; EOS ABS # 0.01 K/uL (0-0.5); IG# 0.02 K/uL (0.00-0.02); LYMPH % 4.1 %; NEUT % 92.5 %; NEUT ABS # 9.12 K/uL (1.4-6.5)
[2017-12-29] MEDS: LACTOBACILLUS ACIDOPHILUS (FLORANEX) TAB PO SCH ×3 (08:02→15:47)
[2017-12-29] MEDS: MIDODRINE 2.5 MG TAB PO SCH ×3 (08:03→18:48)
[2017-12-29] MEDS: PANTOprazole SOD 40 MG TAB PO SCH ×2 (08:04→20:24)
[2017-12-29] MEDS: TOPIRAMATE 25 MG TAB PO SCH ×2 (08:04→20:24)
[2017-12-29] MEDS: POTASSIUM CHLORIDE 10 MEQ TABCR PO SCH (08:05)
[2017-12-29] MEDS: GABAPENTIN 800 MG TAB PO SCH ×3 (08:05→20:24)
[2017-12-29] MEDS: CEROVITE ADV FORMULA TAB PO SCH (08:06)
[2017-12-29] MEDS: ASCORBIC ACID 500 MG TAB PO SCH (08:06)
[2017-12-29] MEDS: OXYCODONE HCL 20 MG TABCR (OXYCONTIN) PO SCH ×2 (08:12→20:24)
[2017-12-29] MEDS: AZITHROMYCIN IV 500 MG in DEXTROSE 5% 250ML 250 ML IV SCH (08:13)
[2017-12-29] MEDS: VANCOMYCIN INJ 750 MG in SODIUM CHLORIDE 0.9% 250ML 250 ML IV SCH (08:13)
[2017-12-29] MEDS ORDERED: CEFTRIAXONE SOD 1 GM VIAL IV SCH (09:00)
--- NOTE | 2017-12-29 10:55 | Clinical Documentation Query ---
QUERY 1 OF [address] ALEX, In your clinical opinion is this patient being managed for: ( ) Pressure ulcer of sacral region, stage 4, POA ( ) Not Agree ( ) Other explanation of clinical findings (Please Explain) ( ) Unable to determine (Please Define) ( ) Need to Discuss The medical record reflects the following clinical findings, treatment, and risk factors. Clinical Indicators:72 yo female patient presenting with sepsis, pneumonia and severe malnutrition. Noted order for WOCN consult d/t stage 4 coccyx wound and nursing progress note indicates pt wtih stage 4 coccyx decub ulcer. H/P does not document presence of pressure ulcer. Treatment: WOCN consult pending, nursing cleansed with NSS and applied new foam dressing until seen by WOCN Risk Factors: age, decreased mobility--has MS, severe malnutrition, QUERY 2 OF 3 In your clinical opinion is this patient being managed for: ( ) UTI likely due to chronic hill catheter ( ) Not Agree ( ) Other explanation of clinical findings (Please Explain) ( ) Unable to determine (Please Define) ( ) Need to Discuss The medical record reflects the following clinical findings, treatment, and risk factors. Clinical Indicators: H/P indicates pt with UTI-waiting for cultures. ER note indicates pt presented with a hill catheter. Treatment:UA cx pending, IV azithromycin, IV vancomycin, IV cefepime, IV fluids Risk Factors: chronic hill catheter QUERY 3 OF 3 In your clinical opinion is this patient being managed for: ( ) Possible gram negative or MRSA Pneumonia ( ) Not Agree ( ) Other explanation of clinical findings (Please Explain) ( ) Unable to determine (Please Define) ( ) Need to Discuss The medical record reflects the following clinical findings, treatment, and risk factors. Clinical Indicators:Pt presented from local shelter, currently undergoing treatment of pneumonia since 12/21. WBC 15.20, CXR Interval development of extensive left lower lobe consolidation. Treatment: sputum cx order (not yet collected), IV vancomycin/azithromycin/ceftriaxone, tele, O2 support, Risk Factors: age, shelter resident Please clarify and document your clinical opinion in the progress notes and discharge summary. Terms such as "probable", "suspected", "likely", "questionable", "possible", or "still to be ruled out" are acceptable. IF IN AGREEMENT, YOU MUST DOCUMENT ABOVE DIAGNOSTIC STATEMENT IN DAILY PROGRESS NOTES AND DISCHARGE SUMMARY. This document is not part of the patient's record. Thank You, Aracelis Kidd RN [phone]
--- NOTE | 2017-12-29 10:57 | Clinical Documentation Query ---
QUERY 1 OF [address] DELACRUZ, In your clinical opinion is this patient being managed for: ( x ) Pressure ulcer of sacral region, stage 4, POA ( ) Not Agree ( ) Other explanation of clinical findings (Please Explain) ( ) Unable to determine (Please Define) ( ) Need to Discuss The medical record reflects the following clinical findings, treatment, and risk factors. Clinical Indicators:72 yo female patient presenting with sepsis, pneumonia and severe malnutrition. Noted order for WOCN consult d/t stage 4 coccyx wound and nursing progress note indicates pt wtih stage 4 coccyx decub ulcer. H/P does not document presence of pressure ulcer. Treatment: WOCN consult pending, nursing cleansed with NSS and applied new foam dressing until seen by WOCN Risk Factors: age, decreased mobility--has MS, severe malnutrition, QUERY 2 OF 3 In your clinical opinion is this patient being managed for: ( x) UTI likely due to chronic hill catheter ( ) Not Agree ( ) Other explanation of clinical findings (Please Explain) ( ) Unable to determine (Please Define) ( ) Need to Discuss The medical record reflects the following clinical findings, treatment, and risk factors. Clinical Indicators: H/P indicates pt with UTI-waiting for cultures. ER note indicates pt presented with a hill catheter. Treatment:UA cx pending, IV azithromycin, IV vancomycin, IV cefepime, IV fluids Risk Factors: chronic hill catheter QUERY 3 OF 3 In your clinical opinion is this patient being managed for: ( x ) Possible gram negative or MRSA Pneumonia ( ) Not Agree ( ) Other explanation of clinical findings (Please Explain) ( ) Unable to determine (Please Define) ( ) Need to Discuss The medical record reflects the following clinical findings, treatment, and risk factors. Clinical Indicators:Pt presented from local custodial, currently undergoing treatment of pneumonia since 12/21. WBC 15.20, CXR Interval development of extensive left lower lobe consolidation. Treatment: sputum cx order (not yet collected), IV vancomycin/azithromycin/ceftriaxone, tele, O2 support, Risk Factors: age, custodial resident Please clarify and document your clinical opinion in the progress notes and discharge summary. Terms such as "probable", "suspected", "likely", "questionable", "possible", or "still to be ruled out" are acceptable. IF IN AGREEMENT, YOU MUST DOCUMENT ABOVE DIAGNOSTIC STATEMENT IN DAILY PROGRESS NOTES AND DISCHARGE SUMMARY. This document is not part of the patient's record. Thank You, Aracelis Kidd RN [phone]
--- NOTE | 2017-12-29 12:13 | Progress Note ---
Progress Note Date of Service Dec 29, 2017. Progress Note Possible gram negative or MRSA Pneumonia UTI likely due to chronic hill catheter Pressure ulcer of sacral region, stage 4, POA
[2017-12-29] MEDS: SODIUM CHLORIDE 0.9% 1000ML 1,000 ML IV SCH (15:49)
[2017-12-29] MEDS ORDERED: POTASSIUM CHLORIDE 20 MEQ TABCR PO STA (18:02)
--- NOTE | 2017-12-29 18:13 | Family Medicine Progress Note ---
Progress Note Date of Service Dec 29, 2017. Subjective Pt evaluation today including: conversation w/ patient, physical exam, chart review, lab review, review of studies Pain: No pain reported this morning Voiding: no voiding problems, no incontinence Patient resting comfortably in bed this morning with no acute complaints overnight. The patient states that she is no longer having a cough this morning , but that her shortness of breath is improving. The patient has a history of multiple sclerosis, and is wheelchair-bound but has no ulcerations. Patient also states that she does not have much of an appetite this afternoon. Constitutional: + fatigue, No fever, No chills, No sweats Respiratory: + wheezing, No cough, No sputum, No shortness of breath Cardiovascular: No chest pain, No palpitations Abdomen: No pain, No nausea, No vomiting, No diarrhea Female : No dysuria Medications Current Inpatient Medications Medications (Trade) Dose Ordered Sig/Melvin Route Start Time Stop Time Status Last Admin Dose Admin Acetaminophen (Tylenol Supp) 650 mg Q6H PRN MI 12/28/17 14:15 01/27/18 14:14 Acetaminophen (Tylenol Tab) 325 mg DAILY PRN PO 12/28/17 14:15 01/27/18 14:14 Amitriptyline HCl (Elavil Tab) 75 mg HS PO 12/28/17 21:00 01/27/18 20:59 12/28/17 19:33 75 MG Ascorbic Acid (Vitamin C Tab) 500 mg DAILY PO 12/29/17 09:00 01/28/18 08:59 12/29/17 08:06 500 MG Bisacodyl (Dulcolax Supp) 10 mg Q48H PRN MI 12/28/17 14:15 01/27/18 14:14 Gabapentin (Neurontin Tab) 800 mg TID PO 12/28/17 21:00 01/27/18 20:59 12/29/17 15:09 800 MG Multivitamins/ Minerals (Multivitamin W/ Minerals Tab) 1 tab DAILY PO 12/29/17 09:00 01/28/18 08:59 12/29/17 08:06 1 TAB Ondansetron HCl (Zofran Tab) 4 mg Q8H PRN PO 12/28/17 14:15 01/27/18 14:14 Oxycodone HCl (Oxycontin Tab) 20 mg BID PO 12/28/17 21:00 01/11/18 20:59 12/29/17 08:12 20 MG Oxycodone/ Acetaminophen (Percocet 10-325MG Tab) 1 tab Q4 PRN PO 12/28/17 14:15 01/11/18 14:14 12/28/17 19:45 1 TAB Pantoprazole Sodium (Protonix Tab) 40 mg BID PO 12/28/17 21:00 01/27/18 20:59 12/29/17 08:04 40 MG Potassium Chloride (Klor-Con M10) 10 meq DAILY PO 12/29/17 09:00 01/28/18 08:59 12/29/17 08:05 10 MEQ Prednisone (PredniSONE TAB) 10 mg QAM PO 12/29/17 09:00 01/28/18 08:59 12/29/17 08:06 10 MG Sumatriptan Succinate (Imitrex Tab) 100 mg DAILY PRN PO 12/28/17 14:15 01/27/18 14:14 Topiramate (Topamax Tab) 25 mg BID PO 12/28/17 21:00 01/27/18 20:59 12/29/17 08:04 25 MG Midodrine (Proamatine Tab) 5 mg TID@0800,1200,1800 PO 12/28/17 18:00 01/27/18 17:59 12/29/17 12:08 5 MG Azithromycin 500 mg/Dextrose 255 ml @ 125 mls/hr Q24H IV 12/29/17 09:00 01/05/18 08:59 12/29/17 08:13 125 MLS/HR Lactobacillus Acidophilus (Floranex Tab) 4 tab TIDM PO 12/28/17 18:00 01/27/18 17:59 12/29/17 15:47 4 TAB Sodium Chloride 1,000 ml @ 50 mls/hr Q20H IV 12/28/17 14:10 01/27/18 14:09 12/29/17 15:49 50 MLS/HR Al Hydrox/Mg Hydrox/Simethicone (Maalox Max Susp) 15 ml Q4H PRN PO 12/28/17 14:15 01/27/18 14:14 Magnesium Hydroxide (Milk Of Magnesia Susp) 30 ml Q12H PRN PO 12/28/17 14:15 01/27/18 14:14 Zolpidem Tartrate (Ambien Tab) 5 mg HSZ PRN PO 12/28/17 14:15 01/27/18 14:14 Ondansetron HCl (Zofran Inj) 4 mg Q6H PRN IV 12/28/17 14:15 01/27/18 14:14 Polyethylene (Miralax Powder Packet) 17 gm DAILY PRN PO 12/28/17 14:15 01/27/18 14:14 Cefepime HCl 2000 mg/Syringe 20 ml @ 5 mls/min Q8H IV 12/28/17 20:00 01/04/18 19:59 12/29/17 12:05 5 MLS/MIN Ipratropium Xenia (Atrovent 0.02% 0.5MG/2.5ML Neb) 0.5 mg Q6R INH 12/28/17 21:00 01/27/18 20:59 12/29/17 14:20 0.5 MG Levalbuterol (Xopenex 0.63 Mg/ 3 Ml Neb) 0.63 mg Q6R INH 12/28/17 21:00 01/27/18 20:59 12/29/17 14:20 0.63 MG Heparin Sodium (Porcine) (Heparin Sq 5000 Unit/0.5ml) 5,000 unit Q12H SQ 12/28/17 18:00 01/27/18 17:59 12/29/17 06:19 5,000 UNIT Objective Vital Signs Date Time Temp Pulse Resp B/P (MAP) Pulse Ox O2 Delivery O2 Flow Rate FiO2 12/29/17 16:30 36.8 91 16 130/80 (97) 93 Nasal Cannula 2.0 12/29/17 16:26 Nasal Cannula 2.0 12/29/17 14:20 85 14 98 Nasal Cannula 2.0 12/29/17 12:00 Nasal Cannula 2.0 12/29/17 12:00 36.5 97 18 112/74 (87) 97 Nasal Cannula 2.0 12/29/17 08:00 Nasal Cannula 2.0 12/29/17 07:34 37.1 86 18 114/71 (85) 99 2.0 12/29/17 07:09 87 14 100 Nasal Cannula 2.0 12/29/17 05:08 37.9 105 97 Nasal Cannula 2.0 12/29/17 04:22 38.6 12/29/17 04:00 Nasal Cannula 2.0 12/29/17 03:50 97 Nasal Cannula 2.0 12/29/17 03:36 39.5 123 25 128/65 (86) 88 Room Air 12/29/17 03:30 39.4 125 22 128/65 (86) 94 Nasal Cannula 4.0 12/29/17 02:00 81 14 96 Room Air 12/29/17 00:01 Nasal Cannula 2.0 12/28/17 23:33 36.8 101 18 129/72 (91) 92 Room Air 12/28/17 20:01 73 14 98 Nasal Cannula 2.0 12/28/17 20:00 Nasal Cannula 2.0 12/28/17 19:26 37.0 90 20 144/74 (97) 95 Nasal Cannula 2.0 Physical Exam General Appearance: WD/WN, no apparent distress, + thin Eyes: normal inspection, sclerae normal Neck: supple, trachea midline Respiratory/Chest: chest non-tender, + rhonchi, + wheezing Cardiovascular: regular rate, rhythm, no edema, no gallop Abdomen: normal bowel sounds, non tender, soft Extremities: no pedal edema, no calf tenderness Neurologic/Psychiatric: alert, normal mood/affect, oriented x 3 Laboratory Results Results Past 24 Hours Test 12/28/17 18:00 12/29/17 06:03 Range/Units White Blood Count 9.86 4.8-10.8 K/uL Red Blood Count 3.65 4.2-5.4 M/uL Hemoglobin 10.7 12.0-16.0 g/dL Hematocrit 32.9 37-47 % Mean Corpuscular Volume 90.1 80-100 fL Mean Corpuscular Hemoglobin 29.3 25-34 pg Mean Corpuscular Hemoglobin Concent 32.5 32-36 g/dl Platelet Count 164 130-400 K/uL Mean Platelet Volume 10.8 7.4-10.4 fL Neutrophils (%) (Auto) 92.5 % Lymphocytes (%) (Auto) 4.1 % Monocytes (%) (Auto) 3.0 % Eosinophils (%) (Auto) 0.1 % Basophils (%) (Auto) 0.1 % Neutrophils # (Auto) 9.12 1.4-6.5 K/uL Lymphocytes # (Auto) 0.40 1.2-3.4 K/uL Monocytes # (Auto) 0.30 0.11-0.59 K/uL Eosinophils # (Auto) 0.01 0-0.5 K/uL Basophils # (Auto) 0.01 0-0.2 K/uL RDW Standard Deviation 49.4 36.4-46.3 fL RDW Coefficient of Variation 14.8 11.5-14.5 % Immature Granulocyte % (Auto) 0.2 % Immature Granulocyte # (Auto) 0.02 0.00-0.02 K/uL Sodium Level 140 136-145 mmol/L Potassium Level 3.2 3.5-5.1 mmol/L Chloride Level 110 98-107 mmol/L Carbon Dioxide Level 23 21-32 mmol/L Anion Gap 8.0 3-11 mmol/L Blood Urea Nitrogen 13 7-18 mg/dl Creatinine 0.34 0.60-1.20 mg/dl Est Creatinine Clear Calc Drug Dose 99.9 ml/min Estimated GFR () 129.0 Estimated GFR (Non- 111.3 BUN/Creatinine Ratio 38.8 10-20 Random Glucose 90 70-99 mg/dl Calcium Level 8.4 8.5-10.1 mg/dl Magnesium Level 1.4 1.8-2.4 mg/dl Total Bilirubin 0.3 0.2-1 mg/dl Aspartate Amino Transf (AST/SGOT) 41 15-37 U/L Alanine Aminotransferase (ALT/SGPT) 61 12-78 U/L Alkaline Phosphatase 97 45-117 U/L Total Protein 5.7 6.4-8.2 gm/dl Albumin 2.0 3.4-5.0 gm/dl Globulin 3.7 2.5-4.0 gm/dl Albumin/Globulin Ratio 0.5 0.9-2 Microbiology Results 12/28/17 MRSA DNA Surveillance Screen - Final, Complete Specimen Negative for MRSA by DNA Probe Assessment and Plan Patient is a 72 year old female that presents with shortness of breath secondary to a LLL pneumonia Acute Hypoxic Respiratory Failure / LLL Pneumonia - CXR 12/28: Left lower lobe infiltrate - Broad spectrum antibiotics - Rocephin and Azithromycin Day 2 --> Discontinued Vancomycin after negative MRSA swab - Xopenex and Atrovent - Daily CBC/BMP - Oxygen as needed to maintain SpO2 > 92% - Urine Legionella Sepsis 2/2 CAP / UTI - UA - 1+ Blood, large leukocyte esterase, > 30 WBC - Urine culture pending - No chronic hill, wears diaper - Urinary incontinence with history of urinary retention Grade 3 Coccygeal Ulcer - Bed bound secondary to Multiple Sclerosis - Wound Care - move patient every 2 hours, Aquagel - Follow with wound center - Oxycodone and Percocet as needed for pain Hypomagnesemia/ Hypokalemia - K+ 3.2 --> 60meq KlorCon - Mg 1.4 --> Magnesium Sulfate 2g IV Multiple Sclerosis - Continue home Gabapentin Hypertension - Continue home midodrine GERD - Continue home Protonix Migraines - Continue home Topomax Depression / Sleep - Continue home Amitriptyline DVT - Heparin Code Status - Full Resuscitation Resident Tracking Resident Involvement: Resident Care Provided Care Provided: Adult Hospital Medicine
[2017-12-29] MEDS: MAGNESIUM SULFATE 1GM / D5W 1 GM in PREMIXED IN D5W 100 ML IV SCH ×2 (18:15→19:15)
[2017-12-29] MEDS: AMITRIPTYLINE HCL 25 MG TAB PO SCH (20:24)
[2017-12-30] VITALS (11 sets, daily range): BP systolic 97–155; BP diastolic 55–81; PULSE 73–106; TEMP 36.3–37.9; O2SAT 93–99
[2017-12-30] MEDS: IPRATROPIUM BROMIDE NEB SOLN 0.02% 2.5 ML VIAL INH SCH ×4 (02:07→19:10)
[2017-12-30] MEDS: LEVALBUTEROL 0.63MG/3 ML NEB INH SCH ×4 (02:08→19:10)
[2017-12-30] MEDS: CEFEPIME IV 2,000 MG in SYRINGE 7.5 ML IV SCH ×3 (04:14→20:31)
[2017-12-30 04:47] LABS: HEMATOCRIT 30.2 % (37-47); MEAN CELL VOLUME 89.6 fL (80-100); MEAN CORPUSCULAR HEMOGLOBIN 29.7 pg (25-34); MEAN CORPUSCULAR HGB CONC 33.1 g/dl (32-36); MEAN PLATELET VOLUME 10.4 fL (7.4-10.4); PLATELET COUNT 169 K/uL (130-400); RED CELL DISTRIBUTION WIDTH CV 14.8 % (11.5-14.5); RED CELL DISTRIBUTION WIDTH SD 48.6 fL (36.4-46.3); WHITE BLOOD COUNT 6.95 K/uL (4.8-10.8)
[2017-12-30 05:11] LABS: CREATININE 0.37 mg/dl (0.60-1.20); POTASSIUM 4.4 mmol/L (3.5-5.1)
[2017-12-30 05:38] LABS: BASO % 0.1 %; BASO ABS # 0.01 K/uL (0-0.2); EOS % 0.4 %; EOS ABS # 0.03 K/uL (0-0.5); IG# 0.02 K/uL (0.00-0.02); LYMPH % 11.7 %; LYMPH ABS # 0.81 K/uL (1.2-3.4); MONO % 5.3 %; MONO ABS # 0.37 K/uL (0.11-0.59); NEUT % 82.2 %; NEUT ABS # 5.71 K/uL (1.4-6.5)
[2017-12-30] MEDS: SODIUM CHLORIDE 0.9% 1000ML 1,000 ML IV SCH (05:40)
[2017-12-30] MEDS: HEPARIN SOD 5000 UNIT/0.5 ML CARP SQ SCH ×2 (05:42→18:32)
[2017-12-30] MEDS: ASCORBIC ACID 500 MG TAB PO SCH (08:02)
[2017-12-30] MEDS: MIDODRINE 2.5 MG TAB PO SCH ×3 (08:02→18:30)
[2017-12-30] MEDS: GABAPENTIN 800 MG TAB PO SCH ×3 (08:03→19:57)
[2017-12-30] MEDS: LACTOBACILLUS ACIDOPHILUS (FLORANEX) TAB PO SCH ×3 (08:03→18:30)
[2017-12-30] MEDS: CEROVITE ADV FORMULA TAB PO SCH (08:03)
[2017-12-30] MEDS: POTASSIUM CHLORIDE 10 MEQ TABCR PO SCH (08:03)
[2017-12-30] MEDS: TOPIRAMATE 25 MG TAB PO SCH ×2 (08:04→19:59)
[2017-12-30] MEDS: PANTOprazole SOD 40 MG TAB PO SCH ×2 (08:04→19:59)
[2017-12-30] MEDS: OXYCODONE HCL 20 MG TABCR (OXYCONTIN) PO SCH ×2 (08:06→19:57)
[2017-12-30] MEDS: AZITHROMYCIN IV 500 MG in DEXTROSE 5% 250ML 250 ML IV SCH (08:18)
[2017-12-30] MEDS ORDERED: VANCOMYCIN TROUGH ONE (08:30)
--- NOTE | 2017-12-30 13:33 | Family Medicine Progress Note ---
Progress Note Date of Service Dec 30, 2017. Subjective Pt evaluation today including: conversation w/ patient denies pain No overnight events Nursing reports patient being disoriented this morning Constitutional: + fever, No chills Eyes: No worsening of vision Respiratory: + wheezing, + shortness of breath, + dyspnea on exertion, No cough Cardiovascular: No chest pain Abdomen: No pain, No nausea, No vomiting, No diarrhea Medications Medications (Trade) Dose Ordered Sig/Melvin Route Start Time Stop Time Status Last Admin Dose Admin Potassium Chloride (Klor-Con Tab) 60 meq NOW STAT PO 12/29/17 18:02 12/29/17 18:03 DC 12/29/17 18:48 60 MEQ Magnesium Sulfate 1 gm/Prmx 100 ml @ 100 mls/hr Q1H IV 12/29/17 18:15 12/29/17 20:14 DC 12/29/17 19:15 100 MLS/HR Objective Vital Signs Vital Signs Past 12 Hours Date Time Temp Pulse Resp B/P (MAP) Pulse Ox O2 Delivery O2 Flow Rate FiO2 12/30/17 10:48 37.9 95 20 97/55 (69) 96 Nasal Cannula 2.0 12/30/17 08:03 36.7 106 20 131/74 (93) 97 Nasal Cannula 2.0 12/30/17 08:00 96 Nasal Cannula 2.0 12/30/17 07:02 96 16 97 Nasal Cannula 2.0 12/30/17 04:00 Nasal Cannula 2.0 12/30/17 03:50 37.8 100 17 108/68 (81) 96 Nasal Cannula 2.0 12/30/17 02:08 91 16 96 Nasal Cannula 2.0 Physical Exam General Appearance: no apparent distress Eyes: PERRL, EOMI ENT: hearing grossly normal Respiratory/Chest: no respiratory distress, no accessory muscle use, + decreased breath sounds, + rhonchi Cardiovascular: regular rate, rhythm, no edema Abdomen: normal bowel sounds, non tender, soft Extremities: non-tender, no pedal edema, no calf tenderness Neurologic/Psychiatric: + motor weakness, + sensory deficit, + disoriented Laboratory Results Last 24 Hours Test 12/30/17 04:19 White Blood Count 6.95 K/uL Red Blood Count 3.37 M/uL Hemoglobin 10.0 g/dL Hematocrit 30.2 % Mean Corpuscular Volume 89.6 fL Mean Corpuscular Hemoglobin 29.7 pg Mean Corpuscular Hemoglobin Concent 33.1 g/dl Platelet Count 169 K/uL Mean Platelet Volume 10.4 fL Neutrophils (%) (Auto) 82.2 % Lymphocytes (%) (Auto) 11.7 % Monocytes (%) (Auto) 5.3 % Eosinophils (%) (Auto) 0.4 % Basophils (%) (Auto) 0.1 % Neutrophils # (Auto) 5.71 K/uL Lymphocytes # (Auto) 0.81 K/uL Monocytes # (Auto) 0.37 K/uL Eosinophils # (Auto) 0.03 K/uL Basophils # (Auto) 0.01 K/uL RDW Standard Deviation 48.6 fL RDW Coefficient of Variation 14.8 % Immature Granulocyte % (Auto) 0.3 % Immature Granulocyte # (Auto) 0.02 K/uL Toxic Vacuolation 1+ Sodium Level 137 mmol/L Potassium Level 4.4 mmol/L Chloride Level 110 mmol/L Carbon Dioxide Level 23 mmol/L Anion Gap 4.0 mmol/L Blood Urea Nitrogen 9 mg/dl Creatinine 0.37 mg/dl Est Creatinine Clear Calc Drug Dose 91.8 ml/min Estimated GFR () 125.5 Estimated GFR (Non- 108.3 BUN/Creatinine Ratio 24.7 Random Glucose 92 mg/dl Calcium Level 8.0 mg/dl Assessment and Plan Patient is a 72 year old female that presents with shortness of breath secondary to a LLL pneumonia. Seems that her mentation is at baseline or atleast the same as yesterday. Acute Hypoxic Respiratory Failure 2/2 LLL Pneumonia - CXR 12/28: Left lower lobe infiltrate - Broad spectrum antibiotics - Cefepime and Azithromycin Day 3 --> Discontinued Vancomycin after negative MRSA swab - Xopenex and Atrovent - Daily CBC/BMP - Oxygen as needed to maintain SpO2 > 92% - Urine Legionella Sepsis 2/2 CAP / UTI/ - UA - 1+ Blood, large leukocyte esterase, > 30 WBC - Urine culture negative to date - No chronic hill, wears diaper - Urinary incontinence with history of urinary retention Grade 3 Coccygeal Ulcer - Bed bound secondary to Multiple Sclerosis - Wound Care - move patient every 2 hours, Aquagel - Follow with wound center - Oxycodone and Percocet as needed for pain Hypomagnesemia/ Hypokalemia - K+ 4.4 today - recheck lytes Multiple Sclerosis - Continue home Gabapentin Hypertension - Continue home midodrine GERD - Continue home Protonix Migraines - Continue home Topomax Depression / Sleep - Continue home Amitriptyline DVT - Heparin Code Status - Full Resuscitation Attending Resident Physician Supervision Note: I personally interviewed and examined the patient with resident Dr. Fletcher I agree with progress note and physical exam mentioned above, I also performed my own encounter and examination. I reviewed all pertinent labs and studies Reviewed current medications I discussed and formulated of the assessment and plan with resident as mentioned above. Please refer to the Summary mentioned below: 72 year old female admitted because of acute Hypoxic Respiratory Failure secondary to LLL Pneumonia with shortness of breath , chest x-ray shows left lower lobe infiltrate, Stable improving, continue current antibiotics which is Rocephin and Azithromycin Day 3 --> Discontinued Vancomycin after negative MRSA swab, continue nebulizer treatment and oxygen support follow-up the results of Urine Legionella. sepsis secondary to CAP / UTI, follow-up culture sensitivities and adjust antibiotics as needed, Grade 3 Coccygeal Ulcer, continue decubitus care routine and wound care. UTI, follow-up sensitivity History of multiple sclerosis, continue current care, PT OT, out of bed to chair if patient tolerated, catalytic case operator for discharge plan General Appearance: WD/WN, no apparent distress, + thin Eyes: normal inspection, sclerae normal Neck: supple, trachea midline Respiratory/Chest: chest non-tender, occasional rhonchi and sporadic wheezing Cardiovascular: regular rate, rhythm, no edema, no gallop Abdomen: normal bowel sounds, non tender, soft Extremities: no pedal edema, no calf tenderness Neurologic/Psychiatric: alert, normal mood/affect, oriented x 3
[2017-12-30] MEDS: OXYCODONE/ACETAMINOPHEN 10/325MG TAB PO PRN (16:33)
[2017-12-30] MEDS: AMITRIPTYLINE HCL 25 MG TAB PO SCH (19:58)
[2017-12-31] VITALS (10 sets, daily range): BP systolic 97–157; BP diastolic 58–89; PULSE 60–92; TEMP 36.6–37.2; O2SAT 95–99
[2017-12-31] MEDS: LEVALBUTEROL 0.63MG/3 ML NEB INH SCH ×4 (01:47→19:24)
[2017-12-31] MEDS: IPRATROPIUM BROMIDE NEB SOLN 0.02% 2.5 ML VIAL INH SCH ×4 (01:47→19:24)
[2017-12-31] MEDS: CEFEPIME IV 2,000 MG in SYRINGE 7.5 ML IV SCH ×2 (04:22→11:52)
[2017-12-31] MEDS: HEPARIN SOD 5000 UNIT/0.5 ML CARP SQ SCH ×2 (05:58→18:04)
[2017-12-31] MEDS: SODIUM CHLORIDE 0.9% 1000ML 1,000 ML IV SCH (05:59)
[2017-12-31] MEDS: LACTOBACILLUS ACIDOPHILUS (FLORANEX) TAB PO SCH ×3 (07:56→17:54)
[2017-12-31] MEDS: CEROVITE ADV FORMULA TAB PO SCH (07:56)
[2017-12-31] MEDS: PANTOprazole SOD 40 MG TAB PO SCH ×2 (07:57→21:38)
[2017-12-31] MEDS: TOPIRAMATE 25 MG TAB PO SCH ×2 (07:58→20:47)
[2017-12-31] MEDS: MIDODRINE 2.5 MG TAB PO SCH ×3 (07:58→17:55)
[2017-12-31] MEDS: ASCORBIC ACID 500 MG TAB PO SCH (07:58)
[2017-12-31] MEDS: POTASSIUM CHLORIDE 10 MEQ TABCR PO SCH (07:59)
[2017-12-31] MEDS: GABAPENTIN 800 MG TAB PO SCH ×3 (07:59→20:45)
[2017-12-31] MEDS: OXYCODONE HCL 20 MG TABCR (OXYCONTIN) PO SCH ×2 (08:08→20:44)
[2017-12-31] MEDS: AZITHROMYCIN IV 500 MG in DEXTROSE 5% 250ML 250 ML IV SCH (08:08)
[2017-12-31 08:34] LABS: CALCIUM 8.6 mg/dl (8.5-10.1); CREATININE 0.25 mg/dl (0.60-1.20); POTASSIUM 3.9 mmol/L (3.5-5.1)
[2017-12-31] MEDS ORDERED: MAGNESIUM SULFATE 1GM / D5W 1 GM in PREMIXED IN D5W 100 ML IV ONE (13:30)
--- NOTE | 2017-12-31 15:30 | Family Medicine Progress Note ---
Progress Note Date of Service Dec 31, 2017. Subjective Pt evaluation today including: conversation w/ patient Reports feeling better No acute concerns Constitutional: No fever, No chills Eyes: No worsening of vision Respiratory: + cough, + sputum, + dyspnea on exertion, No wheezing, No shortness of breath, No dyspnea at rest Cardiovascular: No chest pain Abdomen: No pain, No nausea, No vomiting, No diarrhea Musculoskeletal: No joint pain Medications Medications (Trade) Dose Ordered Sig/Melvin Route Start Time Stop Time Status Last Admin Dose Admin Magnesium Sulfate 1 gm/Prmx 100 ml @ 100 mls/hr NOW ONCE IV 12/31/17 13:30 12/31/17 14:29 DC 12/31/17 14:12 100 MLS/HR Objective Vital Signs Date Time Temp Pulse Resp B/P (MAP) Pulse Ox O2 Delivery O2 Flow Rate FiO2 12/31/17 14:57 84 16 98 Nasal Cannula 2.0 12/31/17 13:19 36.6 85 20 95 2.0 12/31/17 11:14 Nasal Cannula 2.0 12/31/17 11:10 36.6 85 20 97/58 (71) 95 Room Air 12/31/17 08:00 Nasal Cannula 2.0 12/31/17 07:50 84 16 97 Nasal Cannula 2.0 12/31/17 07:35 36.6 84 20 125/70 (88) 97 Nasal Cannula 12/31/17 04:00 Nasal Cannula 2.0 12/31/17 03:44 36.9 61 19 124/77 (93) 98 Nasal Cannula 2.0 12/31/17 01:47 60 16 99 Nasal Cannula 2.0 12/31/17 01:24 36.7 68 19 157/89 (111) 98 Nasal Cannula 2.0 12/30/17 23:59 Nasal Cannula 2.0 12/30/17 20:06 36.5 86 15 155/81 (105) 95 Nasal Cannula 2.0 12/30/17 20:00 Nasal Cannula 2.0 12/30/17 19:13 73 18 99 Nasal Cannula 2.0 12/30/17 16:00 36.3 80 20 131/76 (94) 93 2.0 12/30/17 16:00 96 Nasal Cannula 2.0 Physical Exam General Appearance: no apparent distress Eyes: PERRL, EOMI ENT: hearing grossly normal Neck: no adenopathy Respiratory/Chest: no respiratory distress, no accessory muscle use, + decreased breath sounds, + rhonchi, + wheezing Cardiovascular: regular rate, rhythm Abdomen: normal bowel sounds, non tender, soft Extremities: non-tender, no calf tenderness Neurologic/Psychiatric: + disoriented Assessment and Plan Patient is a 72 year old female that presents with shortness of breath secondary to a LLL pneumonia. Seems that her mentation is at baseline or atleast the same as yesterday. Acute Hypoxic Respiratory Failure 2/2 LLL Pneumonia - CXR 12/28: Left lower lobe infiltrate - Cefepime, Azithromycin- D/C cefepime, continue azithromycin - Xopenex and Atrovent - Daily CBC/BMP - Oxygen as needed to maintain SpO2 > 92% - Urine Legionella - wean O2 as possible, transfer to [facility] surg Sepsis 2/ CAP / UTI - UA - 1+ Blood, large leukocyte esterase, > 30 WBC - Urine culture drawn at [facility] side prior to admission here (12/26)- Proteus mirabilis, also was started on Rocephin prior to admission here which may explain negative urine cultures in the hospital. - Based on culture/sensitivity- switched to Augmentin - No chronic Vera, wears diaper - Urinary incontinence with history of urinary retention Grade 3 Coccygeal Ulcer - Bed bound secondary to Multiple Sclerosis - Wound Care - move patient every 2 hours, Aquagel - Follow with wound center - Oxycodone and Percocet as needed for pain Hypomagnesemia/ Hypokalemia - K+ 3.8 today - recheck Lytes Mg 1.8- replaced Multiple Sclerosis - Continue home Gabapentin - continue prednisone Hypertension - Continue home midodrine GERD - Continue home Protonix Migraines - Continue home Topomax Depression / Sleep - Continue home Amitriptyline DVT - Heparin Code Status - Full Resuscitation Attending Resident Physician Supervision Note: I personally interviewed and examined the patient with resident Dr. Fletcher I agree with progress note and physical exam mentioned above, I also performed my own encounter and examination. I reviewed all pertinent labs and studies Reviewed current medications I discussed and formulated of the assessment and plan with resident as mentioned above. Please refer to the Summary mentioned below: 72 year old female admitted because of acute Hypoxic Respiratory Failure secondary to LLL Pneumonia with shortness of breath , chest x-ray shows left lower lobe infiltrate, Stable improving, continue current antibiotics which is Rocephin and Azithromycin Day 3 --> Discontinued Vancomycin after negative MRSA swab, continue nebulizer treatment and oxygen support follow-up the results of Urine Legionella. sepsis secondary to CAP / UTI, follow-up culture sensitivities and adjust antibiotics as needed, Grade 3 Coccygeal Ulcer, continue decubitus care routine and wound care. UTI, follow-up sensitivity, all of the above conditions are stable or improving , currently on Augmentin and azithromycin, which will cover for pneumonia, Augmentin will be able to cover for recent Klebsiella UTI History of multiple sclerosis, continue current care, PT OT, out of bed to chair if patient tolerated, case management director for discharge plan, possible discharge home tomorrow General Appearance: WD/WN, no apparent distress, + thin, much alert and awake, pleasant Eyes: normal inspection, sclerae normal Neck: supple, trachea midline Respiratory/Chest: chest non-tender, occasional rhonchi and sporadic wheezing Cardiovascular: regular rate, rhythm, no edema, no gallop Abdomen: normal bowel sounds, non tender, soft Extremities: no pedal edema, no calf tenderness Neurologic/Psychiatric: alert, normal mood/affect, oriented x 3 Continued [facility] stay due to: home environment unsafe for pt Discharge planning: home with home health
[2017-12-31] MEDS: AMOXICILLIN/CLAVULANATE TAB 875 MG TAB PO SCH (19:52)
[2017-12-31] MEDS: MAGNESIUM OXIDE 400 MG TAB PO SCH (20:46)
[2017-12-31] MEDS: AMITRIPTYLINE HCL 25 MG TAB PO SCH (20:47)
[2018-01-01 01:53] VITALS: PULSE 90; O2SAT 93
[2018-01-01] MEDS: LEVALBUTEROL 0.63MG/3 ML NEB INH SCH ×2 (01:53→07:33)
[2018-01-01] MEDS: IPRATROPIUM BROMIDE NEB SOLN 0.02% 2.5 ML VIAL INH SCH ×2 (01:53→07:33)
[2018-01-01 06:15] LABS: BASO % 0.1 %; BASO ABS # 0.01 K/uL (0-0.2); EOS % 1.7 %; EOS ABS # 0.12 K/uL (0-0.5); HEMOGLOBIN 10.5 g/dL (12.0-16.0); IG# 0.02 K/uL (0.00-0.02); LYMPH % 17.1 %; LYMPH ABS # 1.24 K/uL (1.2-3.4); MEAN CELL VOLUME 89.4 fL (80-100); MEAN CORPUSCULAR HEMOGLOBIN 28.5 pg (25-34); MEAN CORPUSCULAR HGB CONC 31.8 g/dl (32-36); MEAN PLATELET VOLUME 10.6 fL (7.4-10.4); MONO % 7.3 %; MONO ABS # 0.53 K/uL (0.11-0.59); NEUT % 73.5 %; NEUT ABS # 5.32 K/uL (1.4-6.5); PLATELET COUNT 197 K/uL (130-400); RED CELL DISTRIBUTION WIDTH CV 14.7 % (11.5-14.5); RED CELL DISTRIBUTION WIDTH SD 48.4 fL (36.4-46.3); WHITE BLOOD COUNT 7.24 K/uL (4.8-10.8)
[2018-01-01] MEDS: HEPARIN SOD 5000 UNIT/0.5 ML CARP SQ SCH ×2 (06:17→18:48)
[2018-01-01 06:51] LABS: CALCIUM 8.9 mg/dl (8.5-10.1); CREATININE 0.3 mg/dl (0.60-1.20); POTASSIUM 3.9 mmol/L (3.5-5.1)
[2018-01-01 07:09] VITALS: BP 123/75; PULSE 97; TEMP 36.8; O2SAT 96
[2018-01-01 07:33] VITALS: PULSE 97; O2SAT 96
[2018-01-01 08:00] VITALS: O2SAT 96
[2018-01-01] MEDS: AMOXICILLIN/CLAVULANATE TAB 875 MG TAB PO SCH ×2 (08:57→18:45)
[2018-01-01] MEDS: GABAPENTIN 800 MG TAB PO SCH ×3 (08:59→22:01)
[2018-01-01] MEDS: LACTOBACILLUS ACIDOPHILUS (FLORANEX) TAB PO SCH ×3 (08:59→18:45)
[2018-01-01] MEDS: PANTOprazole SOD 40 MG TAB PO SCH ×2 (09:00→22:01)
[2018-01-01] MEDS: MIDODRINE 2.5 MG TAB PO SCH ×3 (09:00→18:46)
[2018-01-01] MEDS: POTASSIUM CHLORIDE 10 MEQ TABCR PO SCH (09:00)
[2018-01-01] MEDS: CEROVITE ADV FORMULA TAB PO SCH (09:00)
[2018-01-01] MEDS: AZITHROMYCIN 250 MG TAB PO SCH (09:01)
[2018-01-01] MEDS: TOPIRAMATE 25 MG TAB PO SCH ×2 (09:01→22:01)
[2018-01-01] MEDS: MAGNESIUM OXIDE 400 MG TAB PO SCH ×2 (09:01→22:01)
[2018-01-01] MEDS: OXYCODONE HCL 20 MG TABCR (OXYCONTIN) PO SCH ×2 (09:07→22:01)
[2018-01-01] MEDS: ASCORBIC ACID 500 MG TAB PO SCH (09:08)
[2018-01-01] MEDS ORDERED: IPRATROPIUM BROMIDE/ALBUTEROL respimat INH INH PRN (09:15)
[2018-01-01 16:00] VITALS: BP 131/72; PULSE 89; TEMP 37; O2SAT 96
--- NOTE | 2018-01-01 20:58 | Progress Note ---
Subjective Date of Service: Jan 01, 2018. Subjective Pt evaluation today including: conversation w/ patient, physical exam, lab review, review of inpatient medication list Pain: no pain PO Intake: adequate Voiding: hill catheter in place patient weak, laying in bed, oriented to person, place, year but cannot tell me why she is here tried to discuss DNR status, she was not comprehending what it meant son at the bedside, said that the patient is more confused, he is concerned having some delirium with delusional thoughts and hallucinations labs reviewed, CBC and BMP stable Problem List Medical Problems: (1) Altered mental status Status: Acute (2) Altered mental status Status: Acute (3) Cellulitis Status: Acute (4) Cystitis Status: Acute (5) Dehydration Status: Acute (6) Dehydration Status: Acute (7) Diarrhea Status: Acute (8) Exacerbation of multiple sclerosis Status: Acute (9) Fall at home Status: Acute (10) Femur fracture Status: Acute (11) Fever Status: Acute (12) Fracture of right hip Status: Acute (13) Headache Status: Acute (14) Hypokalemia Status: Acute (15) Intractable pain Status: Acute (16) Intractable vomiting Status: Acute (17) Migraine Status: Acute (18) Migraine Status: Acute (19) Migraine Status: Acute (20) Migraine Status: Acute (21) Migraine Status: Acute (22) Migraine Status: Acute (23) Migraine Status: Acute (24) Migraine Status: Acute (25) Migraine Status: Acute (26) Migraine Status: Acute (27) Migraine headache Status: Acute (28) Pelvis fracture, right Status: Acute (29) Pneumonia Status: Acute (30) Pneumonia Status: Acute (31) Pressure ulcer of right buttock Status: Acute (32) Proctocolitis Status: Acute (33) Sacral ulcer Status: Acute (34) Status post closed fracture of right hip Status: Acute (35) Tachycardia Status: Acute (36) Tachycardia Status: Acute (37) Tachycardia Status: Acute (38) UTI (urinary tract infection) Status: Acute (39) Weakness Status: Acute (40) Weakness Status: Acute (41) Weakness Status: Acute Review of Systems Constitutional: + weakness, + fatigue All Other Systems: Reviewed and Negative Medications Current Inpatient Medications Medications (Trade) Dose Ordered Sig/Melvin Route Start Time Stop Time Status Last Admin Dose Admin Acetaminophen (Tylenol Supp) [address] 12/28/17 14:15 01/27/18 14:14 Acetaminophen (Tylenol Tab) 325 mg DAILY PRN PO 12/28/17 14:15 01/27/18 14:14 Amitriptyline HCl (Elavil Tab) 75 mg HS PO 12/28/17 21:00 01/27/18 20:59 12/31/17 20:47 75 MG Ascorbic Acid (Vitamin C Tab) 500 mg DAILY PO 12/29/17 09:00 01/28/18 08:59 01/01/18 09:08 500 MG Bisacodyl (Dulcolax Supp) [address] 12/28/17 14:15 01/27/18 14:14 Gabapentin (Neurontin Tab) 800 mg TID PO 12/28/17 21:00 01/27/18 20:59 01/01/18 12:40 800 MG Multivitamins/ Minerals (Multivitamin W/ Minerals Tab) 1 tab DAILY PO 12/29/17 09:00 01/28/18 08:59 01/01/18 09:00 1 TAB Ondansetron HCl (Zofran Tab) 4 mg Q8H PRN PO 12/28/17 14:15 01/27/18 14:14 Oxycodone HCl (Oxycontin Tab) 20 mg BID PO 12/28/17 21:00 01/11/18 20:59 01/01/18 09:07 20 MG Oxycodone/ Acetaminophen (Percocet 10-325MG Tab) 1 tab Q4 PRN PO 12/28/17 14:15 01/11/18 14:14 12/30/17 16:33 1 TAB Pantoprazole Sodium (Protonix Tab) 40 mg BID PO 12/28/17 21:00 01/27/18 20:59 01/01/18 09:00 40 MG Potassium Chloride (Klor-Con M10) 10 meq DAILY PO 12/29/17 09:00 01/28/18 08:59 01/01/18 09:00 10 MEQ Prednisone (PredniSONE TAB) 10 mg QAM PO 12/29/17 09:00 01/28/18 08:59 01/01/18 08:59 10 MG Sumatriptan Succinate (Imitrex Tab) 100 mg DAILY PRN PO 12/28/17 14:15 01/27/18 14:14 Topiramate (Topamax Tab) 25 mg BID PO 12/28/17 21:00 01/27/18 20:59 01/01/18 09:01 25 MG Midodrine (Proamatine Tab) 5 mg TID@0800,1200,1800 PO 12/28/17 18:00 01/27/18 17:59 01/01/18 12:40 5 MG Lactobacillus Acidophilus (Floranex Tab) 4 tab TIDM PO 12/28/17 18:00 01/27/18 17:59 01/01/18 12:40 4 TAB Al Hydrox/Mg Hydrox/Simethicone (Maalox Max Susp) 15 ml Q4H PRN PO 12/28/17 14:15 01/27/18 14:14 Magnesium Hydroxide (Milk Of Magnesia Susp) 30 ml Q12H PRN PO 12/28/17 14:15 01/27/18 14:14 Zolpidem Tartrate (Ambien Tab) 5 mg HSZ PRN PO 12/28/17 14:15 01/27/18 14:14 Ondansetron HCl (Zofran Inj) 4 mg Q6H PRN IV 12/28/17 14:15 01/27/18 14:14 Polyethylene (Miralax Powder Packet) 17 gm DAILY PRN PO 12/28/17 14:15 01/27/18 14:14 Heparin Sodium (Porcine) (Heparin Sq 5000 Unit/0.5ml) 5,000 unit Q12H SQ 12/28/17 18:00 01/27/18 17:59 01/01/18 06:17 5,000 UNIT Magnesium Oxide (Mag-Ox Tab) 400 mg BID PO 12/31/17 21:00 01/07/18 20:59 01/01/18 09:01 400 MG Amoxicillin/ Clavulanate Potassium (Augmentin Tab) 875 mg BIDM PO 12/31/17 16:45 01/05/18 16:44 01/01/18 08:57 875 MG Azithromycin (Zithromax Tab) 500 mg QAM PO 01/01/18 09:00 01/05/18 08:59 01/01/18 09:01 500 MG Heparin Sodium (Porcine) (Heparin 100 Unit/ml 5ml Flush) 5 ml PRN PRN FLUSH 12/31/17 16:00 01/30/18 15:59 01/01/18 05:57 5 ML Albuterol/ Ipratropium (Combivent Respimat Inh) 1 puffs QID PRN INH 01/01/18 09:15 01/31/18 09:14 Quetiapine Fumarate (seroQUEL TAB) 25 mg HS PO 01/01/18 21:00 01/31/18 20:59 Objective Vital Signs Date Time Temp Pulse Resp B/P (MAP) Pulse Ox O2 Delivery O2 Flow Rate FiO2 01/01/18 08:00 96 Room Air 01/01/18 07:33 97 16 96 Room Air 01/01/18 07:09 36.8 97 18 123/75 (91) 96 Room Air 01/01/18 01:53 90 16 93 Room Air 01/01/18 00:00 Room Air 12/31/17 23:20 37.2 92 18 121/74 (90) 95 Room Air 12/31/17 19:24 77 16 96 Room Air 12/31/17 16:30 Room Air Physical Exam General Appearance: + thin Eyes: normal inspection, EOMI, sclerae normal ENT: normal ENT inspection, hearing grossly normal, pharynx normal Neck: supple, no adenopathy, no JVD, trachea midline Respiratory/Chest: chest non-tender, lungs clear, normal breath sounds, no respiratory distress, no accessory muscle use Cardiovascular: regular rate, rhythm, no edema, no gallop, no JVD, no murmur Abdomen: normal bowel sounds, non tender, soft, no organomegaly Extremities: normal range of motion, non-tender, normal inspection, no pedal edema, no calf tenderness, pelvis stable Neurologic/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, alert, + motor weakness, + disoriented Skin: normal color, warm/dry, no rash Laboratory Results Last 24 Hours Test 01/01/18 06:00 White Blood Count 7.24 K/uL Red Blood Count 3.69 M/uL Hemoglobin 10.5 g/dL Hematocrit 33.0 % Mean Corpuscular Volume 89.4 fL Mean Corpuscular Hemoglobin 28.5 pg Mean Corpuscular Hemoglobin Concent 31.8 g/dl Platelet Count 197 K/uL Mean Platelet Volume 10.6 fL Neutrophils (%) (Auto) 73.5 % Lymphocytes (%) (Auto) 17.1 % Monocytes (%) (Auto) 7.3 % Eosinophils (%) (Auto) 1.7 % Basophils (%) (Auto) 0.1 % Neutrophils # (Auto) 5.32 K/uL Lymphocytes # (Auto) 1.24 K/uL Monocytes # (Auto) 0.53 K/uL Eosinophils # (Auto) 0.12 K/uL Basophils # (Auto) 0.01 K/uL RDW Standard Deviation 48.4 fL RDW Coefficient of Variation 14.7 % Immature Granulocyte % (Auto) 0.3 % Immature Granulocyte # (Auto) 0.02 K/uL Sodium Level 140 mmol/L Potassium Level 3.9 mmol/L Chloride Level 105 mmol/L Carbon Dioxide Level 26 mmol/L Anion Gap 8.0 mmol/L Blood Urea Nitrogen 10 mg/dl Creatinine 0.30 mg/dl Est Creatinine Clear Calc Drug Dose 108.3 ml/min Estimated GFR () 134.5 Estimated GFR (Non- 116.0 BUN/Creatinine Ratio 32.6 Random Glucose 74 mg/dl Calcium Level 8.9 mg/dl Assessment and Plan Patient is a 72 year old female that presents with shortness of breath secondary to a LLL pneumonia Acute Hypoxic Respiratory Failure 2/2 LLL Pneumonia - CXR 12/28: Left lower lobe infiltrate -continue Azithromycin and Augmentin, complete 7 day course - Xopenex and Atrovent - Urine Legionella - negative - wean O2 as possible Sepsis 2/2 CAP / UTI - UA - 1+ Blood, large leukocyte esterase, > 30 WBC - Urine culture drawn at [facility] side prior to admission here (12/26)- Proteus mirabilis - Based on culture/sensitivity- sensitive to Augmentin - No chronic Hill, wears diaper - Urinary incontinence with history of urinary retention Grade 3 Coccygeal Ulcer - Bed bound secondary to Multiple Sclerosis - Wound Care - move patient every 2 hours, Aquagel - Follow with wound center - Oxycodone and Percocet as needed for pain Metabolic encephalopathy, delirium - due to infection, hospitalization, baseline cognitive status - give Seroquel 25mg HS for hallucinations and delusional thinking - avoid benzos - normal sleep wake cycles, constant orientation Hypomagnesemia/ Hypokalemia - K+ 3.9 today Multiple Sclerosis - Continue home Gabapentin - continue prednisone Hypertension - Continue home midodrine GERD - Continue home Protonix Migraines - Continue home Topomax Depression / Sleep - Continue home Amitriptyline DVT - Heparin Code Status - Full Resuscitation - has a POLST completed by her last year that stated she was DNR, comfort measures only but son says that was when she was 70lbs, thought she was dying Continued [facility] stay due to: home environment unsafe for pt Discharge planning: home with home health
[2018-01-01] MEDS ORDERED: QUETIAPINE FUMARATE 25 MG TAB PO SCH (21:00)
[2018-01-01] MEDS: AMITRIPTYLINE HCL 25 MG TAB PO SCH (22:00)
[2018-01-02] VITALS: BP 139/82; PULSE 90; TEMP 36.7; O2SAT 93
[2018-01-02] MEDS: HEPARIN SOD 5000 UNIT/0.5 ML CARP SQ SCH (06:06)
[2018-01-02 06:41] LABS: HEMATOCRIT 33.3 % (37-47); MEAN CELL VOLUME 88.3 fL (80-100); MEAN CORPUSCULAR HEMOGLOBIN 29.2 pg (25-34); MEAN PLATELET VOLUME 10.3 fL (7.4-10.4); PLATELET COUNT 235 K/uL (130-400); RED CELL DISTRIBUTION WIDTH CV 14.8 % (11.5-14.5); WHITE BLOOD COUNT 7.57 K/uL (4.8-10.8)
[2018-01-02 07:01] VITALS: BP 112/73; PULSE 89; TEMP 37.1; O2SAT 95
[2018-01-02 07:03] LABS: BASO % 0.3 %; BASO ABS # 0.02 K/uL (0-0.2); EOS % 1.5 %; EOS ABS # 0.11 K/uL (0-0.5); IG# 0.02 K/uL (0.00-0.02); LYMPH % 22.2 %; LYMPH ABS # 1.68 K/uL (1.2-3.4); MONO % 6.6 %; NEUT % 69.1 %; NEUT ABS # 5.24 K/uL (1.4-6.5)
[2018-01-02 07:16] LABS: CALCIUM 8.8 mg/dl (8.5-10.1); CREATININE 0.28 mg/dl (0.60-1.20); POTASSIUM 3.7 mmol/L (3.5-5.1)
[2018-01-02] MEDS: OXYCODONE HCL 20 MG TABCR (OXYCONTIN) PO SCH (08:17)
[2018-01-02] MEDS: GABAPENTIN 800 MG TAB PO SCH ×2 (08:17→12:59)
[2018-01-02] MEDS: AZITHROMYCIN 250 MG TAB PO SCH (08:17)
[2018-01-02] MEDS: TOPIRAMATE 25 MG TAB PO SCH (08:17)
[2018-01-02] MEDS: LACTOBACILLUS ACIDOPHILUS (FLORANEX) TAB PO SCH ×2 (08:18→11:33)
[2018-01-02] MEDS: ASCORBIC ACID 500 MG TAB PO SCH (08:18)
[2018-01-02] MEDS: MAGNESIUM OXIDE 400 MG TAB PO SCH (08:18)
[2018-01-02] MEDS: POTASSIUM CHLORIDE 10 MEQ TABCR PO SCH (08:18)
[2018-01-02] MEDS: MIDODRINE 2.5 MG TAB PO SCH ×2 (08:19→11:33)
[2018-01-02] MEDS: AMOXICILLIN/CLAVULANATE TAB 875 MG TAB PO SCH (08:19)
[2018-01-02] MEDS: CEROVITE ADV FORMULA TAB PO SCH (09:23)
[2018-01-02] MEDS: PANTOprazole SOD 40 MG TAB PO SCH (09:23)
[2018-01-02] MEDS ORDERED: AZIT-57 PO ×2 (10:18)
[2018-01-02] MEDS ORDERED: AMOX1TAB43 PO ×2 (10:18)
--- NOTE | 2018-01-02 10:23 | Discharge Instructions ---
Discharge Instructions Date of Service Jan 02, 2018. Admission Reason for Admission: Pneumonia Discharge Discharge Diagnosis / Problem: Proteus UTI, Left lower lobe pneumonia Discharge Goals Goal(s): Decrease discomfort, Improve function Activity Recommendations Activity Level: Bedrest . Additional Information Patient informed of condition: Yes Advance Directives: Yes DNR: Yes Level of Care: Skilled Communicable Disease: No Prognosis: Stable Oxygen at (LPM): none Vera Catheter: Yes Instructions / Follow-Up Instructions / Follow-Up Medications - AZITHROMYCIN: 500mg daily for three more days - AUGMENTIN: twice a day for 5 more days Proteus UTI: sensitive to penicillins, complete 5 more days of Augmentin Left lower lobe pneumonia: responding well to antibiotics, complete 3 more days of Azithromycin and 5 more days of Augmentin breathing comfortably on room air, minimal cough, no fever, normal WBC Multiple sclerosis: chronic, debilitating, continue previous instructions for comfort measures outlined on POLST from August 2017 confirmed with patient's Don who is POA FOLLOW UP - physician at [facility] next week Current Hospital Diet Patient's current hospital diet: Regular Diet Discharge Diet Recommended Diet: Regular Diet Pending Studies Studies pending at discharge: no Physician Orders On Transfer POLST Discussion: with POLST completion (completed in August 2017) Medical Emergencies . Who to Call and When: Medical Emergencies: If at any time you feel your situation is an emergency, please call 911 immediately. . Non-Emergent Contact Non-Emergency issues call your: Primary Care Provider Call Non-Emergent contact if: you have a fever, you have any medication questions . . "Provider Documentation" section prepared by [employer]. . Core Measure Problem Core Measures: None [place] Drug Monitoring Program Search Results: no issues identified
[2018-01-02 11:01] VITALS: BP 112/73; PULSE 89; TEMP 37.1; O2SAT 95
[2018-01-02 11:32] VITALS: BP 110/73; PULSE 97
[2018-01-02] MEDS: OXYCODONE/ACETAMINOPHEN 10/325MG TAB PO PRN (12:59)
--- NOTE | 2018-01-03 08:18 | Discharge Summary ---
Discharge Summary Date of Service Jan 02, 2018. Discharge Summary Admission Date: Dec 28, 2017 at 14:13 Discharge Date: Jan 02, 2018 Discharge Disposition: group home facility Principal Diagnosis: Severe sepsis due to left lower lobe pneumonia Problems/Secondary Diagnoses: Proteus UTI Multiple sclerosis, severe debilitation Sacral ulcer, stage III Immunizations: Have You Had Influenza Vaccine: Yes Influenza Vaccine Date: Sep 09, 2013 History of Tetanus Vaccine?: Yes Tetanus Immunization Date: Oct 12, 2002 History of Pneumococcal: UNSURE Pneumococcal Date: Sep 03, 2011 History of Hepatitis B Vaccine: No Procedures: none Consultations: none Medication Reconciliation New Medications: Amoxicillin & Pot Clavulanate (Amoxicillin/Clavulanate P) 1 Tab Tab 875 MG PO BIDM, #10 TAB 0 Refills Azithromycin (Azithromycin) 250 Mg Tab 500 MG PO QAM, #3 TAB 0 Refills Continued Medications: Acetaminophen (Tylenol) 650 Mg Supp 1 SUPP MI Q6H PRN for MILD PAIN OR FEVER Acetaminophen Tab (Tylenol) 325 Mg Tab 325 MG PO DAILY PRN for Pain or Fever Amitriptyline Hcl (Elavil) 75 Mg Tab 75 MG PO HS TAKE THIS MEDICATION 2-3 HOURS BEFORE BEDTIME. Ascorbic Acid (Vitamin C) 500 Mg Tab 500 MG PO DAILY Bisacodyl (Dulcolax) 10 Mg Sup 1 SUPP MI Q4DAYS PRN for Constipation, SUP Cranberry (Vaccinium Macrocarp (Cranberry) 450 Mg Tab 450 MG PO DAILY Gabapentin (Gabapentin) 800 Mg Tab 800 MG PO TID Loperamide Hcl (Imodium A-D) 2 Mg Tab 2 MG PO DIRECTED Magnesium Hydroxide (Milk Of Magnesia) 30 Ml Susp 30 ML PO UD PRN for Constipation, ML Meclizine HCl (Meclizine HCl) 12.5 Mg Tab 12.5 MG PO Q8 PRN for Dizziness or Vertigo, TAB Midodrine Hcl (Midodrine Hcl) 5 Mg Tab 5 MG PO TID Multivitamins/Minerals (Mvi With Minerals) Tab 1 TAB PO DAILY, TAB Ondansetron Hcl (Zofran) 4 Mg Tab 4 MG PO Q8H PRN for Nausea Oxycodone HCl (Oxycodone HCl ER) 20 Mg Tab 20 MG PO BID Oxycodone/Acetaminophen 10MG/325MG (Percocet 10MG/325MG) Tab 1 TAB PO Q4 PRN for Pain, TAB Pantoprazole (Pantoprazole Sodium) 40 Mg Tab 40 MG PO BID Potassium Chloride (Micro-K Ext Rel) 10 Meq Capcr 10 MEQ PO DAILY, CAP Prednisone Tab (Prednisone) 10 Mg Tab 10 MG PO QAM, #30 TAB 2 Refills Probiotic Product (Probiotic) 1 Cap Cap 1 CAP PO DAILY Sumatriptan Succinate (Imitrex) 100 Mg Tab 100 MG PO UD PRN for Migraine TAKE 1 TABLET FOR MIGRAINE RELIEF, MAY REPEAT 2 HOURS LATER IF NEEDED. MAXIMUM 200 MG/DAY. Topiramate (Topiramate) 25 Mg Tab 25 MG PO BID Discontinued Medications: Ceftriaxone Sod (Rocephin) 1 Gm Inj 1 GM IV DAILY, VIAL Levofloxacin in D5w (Levofloxacin in 5% Dextro 250 mg/50Ml) 1 Inj Inj 1 DOSE IV DAILY Discharge Exam Patient doing well, alert and oriented x 3, breathing comfortably, no cough, no fever. Labs normal. Her confusion from 01/01 resolved completely. Had a long talk with her about going to [facility], she was tearful, saying she wanted to go home. Explained that she would need 24 hour care. Called Stevo, her POA, who said that it would be impossible for her to come home, cannot provide 24 hour care, cannot afford it. Discussed POLST completed in August with patient and Don, both said that should follow POLST instructions, DNR, comfort measures, treat infections for comfort, no feeding tubes. Review of Systems: Constitutional: + weakness, + fatigue, No fever, No chills, No sweats, No weight loss, No problem reported Eyes: No worsening of vision, No eye pain, No redness, No discharge, No diplopia, No problem reported ENT: No hearing loss, No unusual epistaxis, No nasal symptoms, No sore throat, No tinnitus, No dental problems, No trouble swallowing, No problem reported Respiratory: No cough, No sputum, No wheezing, No shortness of breath, No dyspnea on exertion, No dyspnea at rest, No hemoptysis, No problem reported Cardiovascular: No chest pain, No orthopnea, No PND, No edema, No claudication, No palpitations, No problem reported Abdomen: No pain, No nausea, No vomiting, No diarrhea, No constipation, No GI bleeding, No problem reported Musculoskeletal: No joint pain, No muscle pain, No swelling, No calf pain, No problem reported Genitourinary - Female: No dysuria, No urinary frequency, No urinary urgency , No urinary incontinence, No urinary retention, No hematuria Neurologic: + weakness (profound weakness from multiple sclerosis), No memory loss, No paralysis, No numbness/tingling, No vertigo, No balance problems , No problem reported Psychiatric: + depression symptoms, No anhedonism, No anxiety, No insomnia, No substance abuse, No problem reported Endocrine: No fatigue, No excessive thirst, No excessive urination, No problem reported Hematologic / Lymphatic: No abnormal bleeding/bruising, No clotting problems , No swollen lymph nodes, No night sweats, No problem reported Integumentary: + problem reported (sacral ulcer), No rash, No itch, No new/ changing skin lesions, No color change, No bleeding Physical Exam: General Appearance: no apparent distress, + thin Eyes: normal inspection, EOMI, sclerae normal ENT: normal ENT inspection, hearing grossly normal, pharynx normal Neck: supple, no adenopathy, no JVD, trachea midline Respiratory/Chest: chest non-tender, lungs clear, normal breath sounds, no respiratory distress, no accessory muscle use Cardiovascular: regular rate, rhythm, no edema, no gallop, no JVD, no murmur , normal peripheral pulses Abdomen / GI: normal bowel sounds, non tender, soft, no organomegaly Extremities: no calf tenderness, normal capillary refill, no pedal edema, pelvis stable, + pertinent finding (muscle wasting, weakness, poor range of motion) 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, alert, normal reflexes, oriented x 3, + motor weakness (generalized), + depressed affect Skin: + pertinent finding (sacral ulcer, present on admission, stage III) Lymphatic: no adenopathy Hospital Course Patient is a 72 year old female that presents with shortness of breath secondary to a LLL pneumonia Acute Hypoxic Respiratory Failure 2/2 LLL Pneumonia - CXR 12/28: Left lower lobe infiltrate -continue Azithromycin and Augmentin, complete 7 day course total - Xopenex and Atrovent - Urine Legionella - negative - breathing room air, minimal cough, WBC normal, afebrile, clinically the pneumonia resolving Sepsis 2/2 CAP / UTI - UA - 1+ Blood, large leukocyte esterase, > 30 WBC - Urine culture drawn at [facility] side prior to admission here (12/26)- Proteus mirabilis, sensitive to penicillins - treat with Augmentin for 7 day course total - No chronic Vera, wears diaper - Urinary incontinence with history of urinary retention Grade 3 Coccygeal Ulcer - Bed bound secondary to Multiple Sclerosis - Wound Care - move patient every 2 hours, Aquagel - Follow with wound center - Oxycodone and Percocet as needed for pain Metabolic encephalopathy, delirium - due to infection, hospitalization, baseline cognitive status - gave one dose of Seroquel 25mg HS for hallucinations and delusional thinking on 01/01 - avoid benzos - patient completely oriented and alert on 01/02, no hallucinations or delusional thinking - will benefit from going back to SNF, could use Seroquel as needed in the future Hypomagnesemia/ Hypokalemia - K+ 3.9 on last check Multiple Sclerosis - Continue home Gabapentin - continue prednisone Hypertension - Continue home midodrine GERD - Continue home Protonix Migraines - Continue home Topomax Depression / Sleep - Continue home Amitriptyline DVT - Heparin Code Status - DNR Patient wishes to go home, however, family cannot provide 24 hour care, confirmed this with patient's Don, she will return to [facility] Total Time Spent: Greater than 30 minutes This includes examination of the patient, discharge planning, medication reconciliation, and communication with other providers. Discharge Instructions Please refer to the electronic Patient Visit Report (Discharge Instructions) for additional information. Follow-Up Physician at [facility] Wound care center as previously scheduled Additional Copies To [facility]
== END 2018-01-02 14:10 | DRG 871 ==
LOC: EDBD 09:09 → C.EDB 09:12 → UNDOADMIN 14:13 → C.2T 14:13 → ENRESERV 15:39 → C.MS2W 12-31 13:58
PROVIDERS: ADMIT Internal Medicine; ATTEND Internal Medicine
DX: A41.9 Sepsis, unspecified organism (principal); J15.6 Pneumonia due to other Gram-negative bacteria; J96.01 Acute respiratory failure with hypoxia; G93.41 Metabolic encephalopathy; L89.153 Pressure ulcer of sacral region, stage 3; R53.2 Functional quadriplegia; E43 Unspecified severe protein-calorie malnutrition; Z68.1 Body mass index [BMI] 19.9 or less, adult; N39.0 Urinary tract infection, site not specified; R65.20 Severe sepsis without septic shock; B96.4 Proteus (mirabilis) (morganii) as the cause of diseases classified elsewhere; E83.42 Hypomagnesemia; E87.6 Hypokalemia; G35 Multiple sclerosis; Z99.3 Dependence on wheelchair; R32 Unspecified urinary incontinence; I10 Essential (primary) hypertension; K21.9 Gastro-esophageal reflux disease without esophagitis; G43.909 Migraine, unspecified, not intractable, without status migrainosus; F32.9 Major depressive disorder, single episode, unspecified; F41.9 Anxiety disorder, unspecified; Z86.19 Personal history of other infectious and parasitic diseases; Z87.11 Personal history of peptic ulcer disease; Z87.891 Personal history of nicotine dependence; Z79.2 Long term (current) use of antibiotics; Z79.52 Long term (current) use of systemic steroids; Z79.891 Long term (current) use of opiate analgesic; Z79.899 Other long term (current) drug therapy; Z88.5 Allergy status to narcotic agent; Z80.3 Family history of malignant neoplasm of breast; Z83.3 Family history of diabetes mellitus; Z82.49 Family history of ischemic heart disease and other diseases of the circulatory system; Z83.79 Family history of other diseases of the digestive system

== ENCOUNTER → 2017-12-28 | Outpatient (CLI) | payer OTHER ==
[2017-12-28 09:29] LABS: BASO % 0.2 %; BASO ABS # 0.02 K/uL (0-0.2); EOS % 0.3 %; EOS ABS # 0.04 K/uL (0-0.5); HEMATOCRIT 35.7 % (37-47); HEMOGLOBIN 11.5 g/dL (12.0-16.0); IG# 0.04 K/uL (0.00-0.02); LYMPH % 5.4 %; LYMPH ABS # 0.69 K/uL (1.2-3.4); MEAN CELL VOLUME 90.8 fL (80-100); MEAN CORPUSCULAR HEMOGLOBIN 29.3 pg (25-34); MEAN CORPUSCULAR HGB CONC 32.2 g/dl (32-36); MEAN PLATELET VOLUME 11.8 fL (7.4-10.4); MONO ABS # 0.51 K/uL (0.11-0.59); NEUT % 89.8 %; NEUT ABS # 11.44 K/uL (1.4-6.5); PLATELET COUNT 185 K/uL (130-400); RED CELL DISTRIBUTION WIDTH SD 49.8 fL (36.4-46.3); WHITE BLOOD COUNT 12.74 K/uL (4.8-10.8)
[2017-12-28 09:38] LABS: BLOOD UREA NITROGEN 16 mg/dl (7-18); CALCIUM 8.7 mg/dl (8.5-10.1); CARBON DIOXIDE 23 mmol/L (21-32); CREATININE 0.43 mg/dl (0.60-1.20); GLUCOSE 77 mg/dl (70-99); POTASSIUM 3.7 mmol/L (3.5-5.1); SODIUM 139 mmol/L (136-145)
== END | disposition home or self-care (01) ==
LOC: C.LABUPNIT 08:43
PROVIDERS: ATTEND Nurse Practitioner Family
DX: R41.82 Altered mental status, unspecified (principal); L89.159 Pressure ulcer of sacral region, unspecified stage

== ENCOUNTER → 2018-01-05 | Outpatient (CLI) | payer OTHER ==
[~2018-01-05] MED LIST changes: +AMOX1TAB43 PO; +ASCA500 PO; +AZIT-57 PO; -CLOTCRE33 TOP; +CRAN1TAB3 PO; -LIQUID PROTEIN PO; +LOPE-5 PO; -LORA-741 PO; +MECL1TAB40 PO; -MIRT45TA3 PO; +MISCCAP80 PO; +MULT-513 PO; +OXYC-106 PO; +OXYC-739 PO; +POTA10CA28 PO; -ULT/50 PO
[2018-01-05 08:41] LABS: BASO % 0.2 %; BASO ABS # 0.02 K/uL (0-0.2); EOS % 1.9 %; EOS ABS # 0.18 K/uL (0-0.5); HEMATOCRIT 40.7 % (37-47); HEMOGLOBIN 12.9 g/dL (12.0-16.0); IG# 0.03 K/uL (0.00-0.02); LYMPH % 24.8 %; LYMPH ABS # 2.34 K/uL (1.2-3.4); MEAN CELL VOLUME 91.1 fL (80-100); MEAN CORPUSCULAR HEMOGLOBIN 28.9 pg (25-34); MEAN CORPUSCULAR HGB CONC 31.7 g/dl (32-36); MEAN PLATELET VOLUME 10.4 fL (7.4-10.4); MONO ABS # 0.57 K/uL (0.11-0.59); NEUT % 66.8 %; NEUT ABS # 6.31 K/uL (1.4-6.5); PLATELET COUNT 368 K/uL (130-400); RED CELL DISTRIBUTION WIDTH CV 14.9 % (11.5-14.5); RED CELL DISTRIBUTION WIDTH SD 49.6 fL (36.4-46.3); WHITE BLOOD COUNT 9.45 K/uL (4.8-10.8)
[2018-01-05 09:01] LABS: ALBUMIN 2.5 gm/dl (3.4-5.0); ALT/SGPT 33 U/L (12-78); AST/SGOT 14 U/L (15-37); BLOOD UREA NITROGEN 14 mg/dl (7-18); CALCIUM 9.6 mg/dl (8.5-10.1); CARBON DIOXIDE 27 mmol/L (21-32); CREATININE 0.51 mg/dl (0.60-1.20); GLUCOSE 60 mg/dl (70-99); POTASSIUM 4.1 mmol/L (3.5-5.1); SODIUM 140 mmol/L (136-145)
[2018-01-05 09:04] LABS: ALKALINE PHOSPHATASE 88 U/L (45-117); TOTAL PROTEIN 6.8 gm/dl (6.4-8.2)
== END ==
LOC: C.LABUPNIT 08:10
PROVIDERS: ATTEND Nurse Practitioner Family
DX: D64.9 Anemia, unspecified (principal)

== ENCOUNTER → 2018-01-08 | Outpatient (CLI) | payer OTHER ==
--- NOTE | 2018-01-16 10:25 | CODING QUERY NO DIAGNOSIS ---
TREATMENT RENDERED WITHOUT A DIAGNOSIS 47 To promote full compliance with coding requirements relating to patient care, physician participation is requested in all cases of field trainer uncertainty. Please assist us with providing a diagnosis/symptom for the test(s) below: A diagnosis/symptom was not documented on your Order. A valid diagnosis/symptom is required to bill all insurances. Please remember that we are unable to code a diagnosis of rule out, probable, possible, questionable, or suspected. DOS 01/08/18 Tests that require a diagnosis: * CLOSTRIDIUM DIFFICILE DIAGNOSIS: Provider Signature: Date: Thank you Lizz Hale [employer] Information Management Once completed, please kindly fax back to [phone] For questions please call [phone]
== END ==
LOC: C.LABUPNIT 20:20
PROVIDERS: ATTEND Nurse Practitioner Family
DX: R19.7 Diarrhea, unspecified (principal)

== ENCOUNTER → 2018-01-10 | Outpatient (CLI) | payer OTHER ==
[2018-01-10 11:47] LABS: BASO % 0.2 %; BASO ABS # 0.02 K/uL (0-0.2); EOS % 1.8 %; EOS ABS # 0.22 K/uL (0-0.5); HEMATOCRIT 36.4 % (37-47); HEMOGLOBIN 11.7 g/dL (12.0-16.0); IG# 0.04 K/uL (0.00-0.02); LYMPH % 17.1 %; LYMPH ABS # 2.09 K/uL (1.2-3.4); MEAN CELL VOLUME 91.2 fL (80-100); MEAN CORPUSCULAR HEMOGLOBIN 29.3 pg (25-34); MEAN CORPUSCULAR HGB CONC 32.1 g/dl (32-36); MEAN PLATELET VOLUME 10.8 fL (7.4-10.4); MONO ABS # 0.61 K/uL (0.11-0.59); NEUT % 75.6 %; NEUT ABS # 9.21 K/uL (1.4-6.5); PLATELET COUNT 389 K/uL (130-400); RED CELL DISTRIBUTION WIDTH CV 14.9 % (11.5-14.5); RED CELL DISTRIBUTION WIDTH SD 49.6 fL (36.4-46.3); WHITE BLOOD COUNT 12.19 K/uL (4.8-10.8)
[2018-01-10 11:55] LABS: BLOOD UREA NITROGEN 19 mg/dl (7-18); CALCIUM 9.2 mg/dl (8.5-10.1); CARBON DIOXIDE 26 mmol/L (21-32); CREATININE 0.35 mg/dl (0.60-1.20); GLUCOSE 84 mg/dl (70-99); POTASSIUM 4.1 mmol/L (3.5-5.1); SODIUM 137 mmol/L (136-145)
--- NOTE | 2018-01-16 10:29 | CODING QUERY NO DIAGNOSIS ---
TREATMENT RENDERED WITHOUT A DIAGNOSIS 47 To promote full compliance with coding requirements relating to patient care, physician participation is requested in all cases of tribal delegate uncertainty. Please assist us with providing a diagnosis/symptom for the test(s) below: A diagnosis/symptom was not documented on your Order. A valid diagnosis/symptom is required to bill all insurances. Please remember that we are unable to code a diagnosis of rule out, probable, possible, questionable, or suspected. DOS 01/10/18 Tests that require a diagnosis: * CBC W/DIFF DIAGNOSIS: * BMP DIAGNOSIS: Provider Signature: Date: Thank you Lizz Hale [facility] Information Management Once completed, please kindly fax back to [phone] For questions please call [phone]
== END ==
LOC: C.LABUPNIT 11:36
PROVIDERS: ATTEND Nurse Practitioner Family
DX: R50.9 Fever, unspecified (principal)

== ENCOUNTER → 2018-01-11 | Outpatient (CLI) | payer OTHER ==
[2018-01-11 10:23] LABS: BASO % 0.2 %; BASO ABS # 0.02 K/uL (0-0.2); EOS ABS # 0.17 K/uL (0-0.5); HEMATOCRIT 35.2 % (37-47); HEMOGLOBIN 11.2 g/dL (12.0-16.0); IG# 0.01 K/uL (0.00-0.02); LYMPH % 24.4 %; LYMPH ABS # 2.03 K/uL (1.2-3.4); MEAN CELL VOLUME 91.4 fL (80-100); MEAN CORPUSCULAR HEMOGLOBIN 29.1 pg (25-34); MEAN CORPUSCULAR HGB CONC 31.8 g/dl (32-36); MEAN PLATELET VOLUME 10.9 fL (7.4-10.4); MONO % 5.3 %; MONO ABS # 0.44 K/uL (0.11-0.59); NEUT ABS # 5.64 K/uL (1.4-6.5); PLATELET COUNT 370 K/uL (130-400); RED CELL DISTRIBUTION WIDTH CV 14.8 % (11.5-14.5); RED CELL DISTRIBUTION WIDTH SD 49.9 fL (36.4-46.3); WHITE BLOOD COUNT 8.31 K/uL (4.8-10.8)
[2018-01-11 10:30] LABS: BLOOD UREA NITROGEN 14 mg/dl (7-18); CALCIUM 9.3 mg/dl (8.5-10.1); CARBON DIOXIDE 27 mmol/L (21-32); CREATININE 0.29 mg/dl (0.60-1.20); GLUCOSE 63 mg/dl (70-99); POTASSIUM 3.7 mmol/L (3.5-5.1); SODIUM 139 mmol/L (136-145)
== END ==
LOC: C.LABUPNIT 09:57
PROVIDERS: ATTEND Nurse Practitioner Family
DX: J18.9 Pneumonia, unspecified organism (principal); I10 Essential (primary) hypertension

== ENCOUNTER 2018-01-23 13:11 | Inpatient (IN) | payer OTHER ==
[~2018-01-23] VITALS: Ht 162.6 cm; Wt 38.1 kg
[~2018-01-23 13:11] MED LIST changes: -GUAI100S16 PO; -LEVO1TAB35 PO
--- NOTE | 2018-01-23 13:23 | EMERGENCY ROOM VISIT NOTE ---
History Report prepared by Fidencio: Gisell Chowdary Under the Supervision of: Dr. Art Astorga D.O. First contact with patient: 13:15 Chief Complaint: ILLNESS Stated Complaint: ILLNESS History of Present Illness The patient is a 72 year old female who presents to the Emergency Room brought in by EMS with complaints of persistent fever since this morning. The patient was sent to the ED for abnormal LFTs and fever. The patient resides at [facility]. Per nursing staff the patients' oxygen saturation was at 85% on RA. Per nursing staff, the patient has been coughing and has a fever. She was recently diagnosed PNA two days ago. Per nursing staff, the patient's urine appears cloudy. She has a history of pyelonephritis. She is a DNR. Source of History: nursing staff Onset: since this morning Position: other (fever) Quality: other (fever) Timing: other (persistent) Associated Symptoms: + cough Review of Systems See HPI for pertinent positives & negatives. A total of 10 systems reviewed and were otherwise negative. Past Medical & Surgical Medical Problems: (1) Acute hepatitis (2) Altered mental status (3) Altered mental status, unspecified (4) Benign hypertension (5) Chronic peptic ulcer (6) Hysterectomy (7) Intertrochanteric fracture of right hip (8) Intertrochanteric fracture of right hip (9) Migraine (10) Multiple sclerosis (11) Multiple sclerosis (12) Multiple sclerosis exacerbation (13) non cardiac chest pain related to gi (14) Sepsis (15) STAPHYLOCOCCAL SEPTICEMIA, NEC (16) UTI (urinary tract infection) Surgical Problems: (1) S/P partial gastrectomy Family History Breast cancer Diabetes mellitus FH: cholecystectomy FHx: heart disease Hypertension Social History Smoking Status: Former Smoker Alcohol Use: none Drug Use: none Housing Status: lives with family Occupation Status: retired Current/Historical Medications Scheduled Amitriptyline Hcl (Elavil), 75 MG PO HS Ascorbic Acid (Vitamin C), 500 MG PO DAILY Cranberry (Vaccinium Macrocarp (Cranberry), 450 MG PO DAILY Gabapentin (Gabapentin), 800 MG PO TID Guaifenesin (Guaifenesin), 10 ML PO Q12 Levofloxacin (Levaquin), 750 MG PO DAILY Loperamide Hcl (Imodium A-D), 2 MG PO DIRECTED Midodrine Hcl (Midodrine Hcl), 5 MG PO TID Multivitamins/Minerals (Mvi With Minerals), 1 TAB PO DAILY Oxycodone HCl (Oxycodone HCl ER), 20 MG PO BID Pantoprazole (Pantoprazole Sodium), 40 MG PO BID Potassium Chloride (Micro-K Ext Rel), 10 MEQ PO DAILY Prednisone Tab (Prednisone), 10 MG PO QAM Probiotic Product (Probiotic), 1 CAP PO DAILY Topiramate (Topiramate), 25 MG PO BID Scheduled PRN Acetaminophen (Tylenol), 1 SUPP PA Q6H PRN for MILD PAIN OR FEVER Acetaminophen Tab (Tylenol), 325 MG PO DAILY PRN for Pain or Fever Bisacodyl (Dulcolax), 1 SUPP PA Q4DAYS PRN for Constipation Magnesium Hydroxide (Milk Of Magnesia), 30 ML PO UD PRN for Constipation Meclizine HCl (Meclizine HCl), 12.5 MG PO Q8 PRN for Dizziness or Vertigo Ondansetron Hcl (Zofran), 4 MG PO Q8H PRN for Nausea Sumatriptan Succinate (Imitrex), 100 MG PO UD PRN for Migraine Allergies Coded Allergies: Morphine (Verified Adverse Reaction, Intermediate, " MAKES ME MEAN" - CONFUSION, 01/23/18) Physical Exam Vital Signs Date Time Temp Pulse Resp B/P (MAP) Pulse Ox O2 Delivery O2 Flow Rate FiO2 01/23/18 19:51 111 20 116/62 97 Mask 4.0 01/23/18 18:33 115 22 114/56 94 Nasal Cannula 4.0 01/23/18 18:04 108 18 108/56 94 Nasal Cannula 4.0 01/23/18 17:30 110 01/23/18 17:10 110 22 100/60 96 Nasal Cannula 4.0 01/23/18 16:34 109 18 93/47 94 Nasal Cannula 4.0 01/23/18 15:12 120 16 109/63 97 Nasal Cannula 4.0 01/23/18 14:45 120 18 114/57 97 Nasal Cannula 4.0 01/23/18 13:28 36.8 124 22 99/57 95 Nasal Cannula 4.0 01/23/18 13:28 86 Room Air 01/23/18 13:25 124 Physical Exam GENERAL: Patient is listless, responds to verbal commands, appears frail. EYES: The conjunctivae are clear. The pupils are round and reactive. EARS, NOSE, MOUTH AND THROAT: The nose is without any evidence of any deformity. Mucous membranes are dry tongue is midline NECK: The neck is nontender and supple. RESPIRATORY: Lung sounds diminished, scattered rhonchi and shallow respirations noted. CARDIOVASCULAR: Tachycardic rate and regular rhythm noted, no definite murmur noted to auscultation. GASTROINTESTINAL: The abdomen is soft. Bowel sounds are present in all quadrants. Abdomen is nontender MUSCULOSKELETAL/EXTREMITIES: There is no evidence of gross deformity full range of motion is noted in the hips and shoulders SKIN: Trace pedal edema bilaterally. Skin was warm and dry. NEUROLOGIC: Patient is awake alert and oriented x3. Medical Decision & Procedures ER Provider Diagnostic Interpretation: Radiology results as stated below per my review and radiologist interpretation: CHEST ONE VIEW PORTABLE CLINICAL HISTORY: Sepsis dyspnea COMPARISON STUDY: 12/28/2017 FINDINGS: Persistent increase in density left base. Lungs otherwise are clear. Central catheter remains in superior vena cava. Postoperative changes to the thoracolumbar spine are unchanged. IMPRESSION: Persistent left basilar consolidative change. No change from the prior study dated 12/28/2017 The above report was generated using voice recognition software. It may contain grammatical, syntax or spelling errors. Electronically signed by: Geovany De Jesus M.D. 01/23/2018 1:52 PM Dictated Date/Time: 01/23/2018 1:47 PM Laboratory Results Test 01/23/18 13:53 01/23/18 14:02 01/23/18 14:37 Erythrocyte Sedimentation Rate 44 mm/hr (0-21) Prothrombin Time 10.5 SECONDS (9.0-12.0) Prothromb Time International Ratio 1.0 (0.9-1.1) Activated Partial Thromboplast Time 26.7 SECONDS (21.0-31.0) Partial Thromboplastin Ratio 1.0 Phosphorus Level 4.2 mg/dl (2.5-4.9) Troponin I < 0.015 ng/ml (0-0.045) C-Reactive Protein 8.69 mg/dl (0-0.29) Pro-B-Type Natriuretic Peptide 182 pg/ml (0-900) Lipase 98 U/L (73-393) Monoscreen NEG (NEG) Bedside Lactic Acid Venous 1.02 mmol/L (0.90-1.70) Urine Color DK YELLOW Urine Appearance TURBID (CLEAR) Urine pH 6.0 (4.5-7.5) Urine Specific [place] 1.020 (1.000-1.030) Urine Protein 1+ (NEG) Urine Glucose (UA) NEG (NEG) Urine Ketones TRACE (NEG) Urine Occult Blood 2+ (NEG) Urine Nitrite NEG (NEG) Urine Bilirubin NEG (NEG) Urine Urobilinogen NEG (NEG) Urine Leukocyte Esterase LARGE (NEG) Urine WBC (Auto) >30 /hpf (0-5) Urine RBC (Auto) 5-10 /hpf (0-4) Urine Hyaline Casts (Auto) 1-5 /lpf (0-5) Urine Epithelial Cells (Auto) >30 /lpf (0-5) Urine Bacteria (Auto) NEG (NEG) Urine Pathogenic Casts /lpf (0) Urine Yeast (Auto) BUD W/ HYPHAE (NONE PRSENT) Laboratory results per my review. Medications Administered Medications (Trade) Dose Ordered Sig/Melvin Route Start Time Stop Time Status Last Admin Dose Admin Sodium Chloride 1,000 ml @ 999 mls/hr Q1H1M ONCE IV 01/23/18 13:24 01/23/18 14:24 DC 01/23/18 13:58 999 MLS/HR Magnesium Sulfate (Magnesium Sulfate) 2 gm NOW STAT IV 01/23/18 14:35 01/23/18 14:37 DC 01/23/18 14:56 2 GM Piperacillin Sod/ Tazobactam Sod 3.375 gm/Dextrose 115 ml @ 230 mls/hr NOW ONCE IV 01/23/18 15:30 01/23/18 15:59 DC 01/23/18 15:37 230 MLS/HR ECG Per My Interpretation Indication: other (fever) Rate (beats per minute): 125 Rhythm: sinus tachycardia Findings: ST depression (diffuse), T-wave inversion, no ectopy (No PVCs) Comparison ECG Date: Resolved compared to 08/18/2017 ED Course 1318: The patient was evaluated in room C6. A complete history and physical examination were performed. 1324: Ordered NSS 1,000 ml @ 999 mls/hr IV 1435: Ordered Magnesium Sulfate 2 gm IV 1530: Ordered Piperacillin Sod/Tazobactam Sod 3.375 gm/Dextrose 115 ml @ 230 mls /hr IV 1530: I reassessed the patient at this time. She is resting comfortably. 1546: I spoke with JONY Frankel hospitalist. We discussed the patient's case. The patient will be evaluated by the [facility] for further management. Medical Decision Prior records/ancillary studies reviewed. Triage Nursing notes reviewed. Additional history obtained from family. The patient's history was concerning for fever. Differential diagnosis: Etiologies such as viral syndrome, otitis, pharyngitis, pneumonia, influenza, meningitis, urinary tract infection, sepsis, bacteremia, as well as others were entertained. The patient is a 72-year-old female who presented to the emergency department for an evaluation of generalized weakness. I am very familiar with the patient. She has very significant past medical history and has had sepsis in the past. She was recently our facility for pneumonia. The patient was found to have a significant urinary tract infection. Her Vera catheter was changed. The patient was given IV fluids and IV antibiotics. I discussed her laboratory and radiographic studies with her. She was also found to have very elevated liver function studies. I am unsure the cause of this. I discussed her case with the on-call [facility] hospitalist group. They have agreed to evaluate the patient in the emergency department for further management and disposition. Medication Reconcilliation Current Medication List: was personally reviewed by me Blood Pressure Screening Patient's blood pressure: Normal blood pressure Consults Time Called: 1534 Consulting Physician: JONY Frankel hospitalist Returned Call: 1546 I spoke with JONY Frankel hospitalruby. We discussed the patient' s case. The patient will be evaluated by the [facility] for further management. Impression Primary Impression: UTI (urinary tract infection) Additional Impression: Abnormal LFTs (liver function tests) Scribe Attestation The scribe's documentation has been prepared under my direction and personally reviewed by me in its entirety. I confirm that the note above accurately reflects all work, treatment, procedures, and medical decision making performed by me. Departure Information Dispostion Being Evaluated By Hospitalist Referrals Effie Ngo (PCP) Patient Instructions My [facility] Problem Qualifiers Primary Impression: UTI (urinary tract infection) Urinary tract infection type: acute pyelonephritis Qualified Codes: N10 - Acute pyelonephritis
[2018-01-23] MEDS ORDERED: SODIUM CHLORIDE 0.9% 1000ML 1,000 ML IV ONE (13:24)
[2018-01-23] MEDS ORDERED: GUAI100S16 PO (13:41)
[2018-01-23] MEDS ORDERED: LEVO1TAB35 PO (13:41)
--- NOTE | 2018-01-23 13:53 | DIAGNOSTIC IMAGING REPORT ---
CHEST ONE VIEW PORTABLE CLINICAL HISTORY: Sepsis dyspnea COMPARISON STUDY: 12/28/2017 FINDINGS: Persistent increase in density left base. Lungs otherwise are clear. Central catheter remains in superior vena cava. Postoperative changes to the thoracolumbar spine are unchanged. IMPRESSION: Persistent left basilar consolidative change. No change from the prior study dated 12/28/2017 The above report was generated using voice recognition software. It may contain grammatical, syntax or spelling errors. Electronically signed by: Geovany De Jesus M.D. 01/23/2018 1:52 PM Dictated Date/Time: 01/23/2018 1:47 PM
[2018-01-23 14:07] LABS: HEMATOCRIT 40.7 % (37-47); HEMOGLOBIN 13.2 g/dL (12.0-16.0); MEAN CELL VOLUME 90.8 fL (80-100); MEAN CORPUSCULAR HEMOGLOBIN 29.5 pg (25-34); MEAN CORPUSCULAR HGB CONC 32.4 g/dl (32-36); MEAN PLATELET VOLUME 10.8 fL (7.4-10.4); PLATELET COUNT 249 K/uL (130-400); RED CELL DISTRIBUTION WIDTH CV 16.4 % (11.5-14.5); RED CELL DISTRIBUTION WIDTH SD 54.2 fL (36.4-46.3); WHITE BLOOD COUNT 12.45 K/uL (4.8-10.8)
[2018-01-23 14:18] LABS: PTT PATIENT 26.7 SECONDS (21.0-31.0)
[2018-01-23 14:31] LABS: ALBUMIN 2.6 gm/dl (3.4-5.0); BASO % 0.6 %; BASO ABS # 0.08 K/uL (0-0.2); BLOOD UREA NITROGEN 21 mg/dl (7-18); CALCIUM 9.3 mg/dl (8.5-10.1); CARBON DIOXIDE 27 mmol/L (21-32); CREATININE 0.61 mg/dl (0.60-1.20); EOS % 0.6 %; EOS ABS # 0.08 K/uL (0-0.5); GLUCOSE 85 mg/dl (70-99); IG# 0.03 K/uL (0.00-0.02); LIPASE 98 U/L (73-393); LYMPH ABS # 1.12 K/uL (1.2-3.4); MONO ABS # 0.37 K/uL (0.11-0.59); NEUT % 86.6 %; NEUT ABS # 10.77 K/uL (1.4-6.5); POTASSIUM 3.9 mmol/L (3.5-5.1); SODIUM 135 mmol/L (136-145)
[2018-01-23] MEDS ORDERED: MAGNESIUM SULFATE 1GM / D5W 1 GM BAG IV STA (14:35)
[2018-01-23 14:57] LABS: ALKALINE PHOSPHATASE 469 U/L (45-117); ALT/SGPT 2482 U/L (12-78); PHOSPHORUS 4.2 mg/dl (2.5-4.9); TOTAL PROTEIN 6.7 gm/dl (6.4-8.2)
[2018-01-23 14:58] LABS: AST/SGOT 6038 U/L (15-37)
[2018-01-23] MEDS ORDERED: PIPERACILLIN/TAZOBACTAM 3.375 GM/100ML D5W IV STA (15:18)
[2018-01-23] MEDS ORDERED: PIPERACILL/TAZOBAC IV 3.375 GM in DEXTROSE 5% 100ML IV ONE (15:30)
--- NOTE | 2018-01-23 17:28 | DIAGNOSTIC IMAGING REPORT ---
ABDOMINAL ULTRASOUND, RIGHT UPPER QUADRANT HISTORY: Elevated liver function tests. COMPARISON: Right upper quadrant ultrasound June 18, [address] of the abdomen and pelvis August 15, 2017. FINDINGS: Incidental note is made of a 6.4 cm left renal cyst. No hepatic lesions are identified. There is no intrahepatic biliary ductal dilatation status post cholecystectomy. The common bile duct is mildly dilated, measuring 9 mm in caliber. This is unchanged since exam of June 18, 2017. No common bile duct calculi are identified. The pancreatic body is normal. Head and tail are partially obscured. There is no right hydronephrosis. IMPRESSION: 1. Mild dilatation of the common bile duct which is unchanged since ultrasound of June 18, 2017 and likely related to previous cholecystectomy. 2. 6.4 cm left renal cyst. Electronically signed by: Edgar Dotson M.D. 01/23/2018 5:26 PM Dictated Date/Time: 01/23/2018 5:22 PM
[2018-01-23] MEDS ORDERED: ALUMINUM/MAGNESIUM/SIMETH (MAALOX MAX) 30 ML UDC PO PRN (19:45)
[2018-01-23] MEDS ORDERED: POLYETHYLENE (MIRALAX) 17 GM PACK PO PRN (19:45)
[2018-01-23] MEDS ORDERED: MAGNESIUM HYDROXIDE SUSP 30 ML UDC PO PRN (19:45)
[2018-01-23] MEDS ORDERED: ZOLPIDEM TARTRATE 5 MG TAB PO PRN ×2 (19:45)
[2018-01-23] MEDS ORDERED: ACETYLCYSTEINE IV 21 HOUR REGIMEN IV STA (19:57)
[2018-01-23] MEDS ORDERED: OPTIRAY 320 IV PRN (20:15)
[2018-01-23] MEDS ORDERED: MAGNESIUM SULFATE 1GM / D5W 1 GM in PREMIXED IN D5W 100 ML IV ONE (20:30)
[2018-01-23] MEDS ORDERED: ACETYLCYSTEINE IV ONE (20:45)
[2018-01-23] MEDS ORDERED: DEXTROSE 5% IV ONE (20:45)
[2018-01-23 20:58] VITALS: BP 129/85; PULSE 111; TEMP 37.2; O2SAT 94; BMI 15.1
[2018-01-23] MEDS ORDERED: AMITRIPTYLINE HCL 25 MG TAB PO SCH (21:00)
[2018-01-23] MEDS ORDERED: OXYCODONE HCL 20 MG TABCR (OXYCONTIN) PO SCH (21:00)
[2018-01-23] MEDS: SODIUM CHLORIDE 0.9% 1000ML 1,000 ML IV SCH (21:07)
[2018-01-23] MEDS ORDERED: DEXTROSE 5% IV SCH (21:46)
[2018-01-23] MEDS ORDERED: ACETYLCYSTEINE IV SCH (21:46)
[2018-01-23] MEDS: TOPIRAMATE 25 MG TAB PO SCH (22:13)
[2018-01-23] MEDS: GABAPENTIN 300 MG CAP PO SCH (22:13)
[2018-01-23] MEDS: HYDROCORTISONE IV 50 MG in SYRINGE 0 ML IV SCH (22:14)
--- NOTE | 2018-01-23 22:19 | History and Physical ---
History & Physical Date & Time of Service: Jan 23, 2018 at 22:02 Chief Complaint: Acute Hepatitis Primary Care Physician: Effie Ngo History of Present Illness Source: patient, hospital records 72-year-old female with advanced MS,. Wheelchair-bound lives in a nursing facility. Recently diagnosed with left lower lobe pneumonia about 3 weeks ago. At that time her liver enzymes were started to go up. She was found at long term to have low oxygen saturation on room air about 85%, also was found to have persistent fever she was sent to the ED for further evaluation and management. Chest x-ray showed persistent left lower lobe density which could be from her previous pneumonia or could be a new recurrence. In the setting of her hypoxemia. On the other hand her liver enzymes were noted to be extremely elevated and she was found to have a UTI Family History Breast cancer Diabetes mellitus FH: cholecystectomy FHx: heart disease Hypertension Social History Smoking Status: Former Smoker Drug Use: none Housing status: long term Occupational Status: retired Immunizations History of Influenza Vaccine: Yes Influenza Vaccine Date: Sep 09, 2013 History of Tetanus Vaccine?: Yes Tetanus Immunization Date: Oct 12, 2002 History of Pneumococcal: UNSURE Pneumococcal Date: Sep 03, 2011 History of Hepatitis B Vaccine: No Allergies Coded Allergies: Morphine (Verified Adverse Reaction, Intermediate, " MAKES ME MEAN" - CONFUSION, 01/23/18) Home Medications Scheduled Amitriptyline Hcl (Elavil), 75 MG PO HS Ascorbic Acid (Vitamin C), 500 MG PO DAILY Cranberry (Vaccinium Macrocarp (Cranberry), 450 MG PO DAILY Gabapentin (Gabapentin), 800 MG PO TID Guaifenesin (Guaifenesin), 10 ML PO Q12 Levofloxacin (Levaquin), 750 MG PO DAILY Loperamide Hcl (Imodium A-D), 2 MG PO DIRECTED Midodrine Hcl (Midodrine Hcl), 5 MG PO TID Multivitamins/Minerals (Mvi With Minerals), 1 TAB PO DAILY Oxycodone HCl (Oxycodone HCl ER), 20 MG PO BID Pantoprazole (Pantoprazole Sodium), 40 MG PO BID Potassium Chloride (Micro-K Ext Rel), 10 MEQ PO DAILY Prednisone Tab (Prednisone), 10 MG PO QAM Probiotic Product (Probiotic), 1 CAP PO DAILY Topiramate (Topiramate), 25 MG PO BID Scheduled PRN Acetaminophen (Tylenol), 1 SUPP NM Q6H PRN for MILD PAIN OR FEVER Acetaminophen Tab (Tylenol), 325 MG PO DAILY PRN for Pain or Fever Bisacodyl (Dulcolax), 1 SUPP NM Q4DAYS PRN for Constipation Magnesium Hydroxide (Milk Of Magnesia), 30 ML PO UD PRN for Constipation Meclizine HCl (Meclizine HCl), 12.5 MG PO Q8 PRN for Dizziness or Vertigo Ondansetron Hcl (Zofran), 4 MG PO Q8H PRN for Nausea Sumatriptan Succinate (Imitrex), 100 MG PO UD PRN for Migraine Review of Systems Due to patient mental status review of system was unobtainable/unreliable We'll attempt to obtain review of system as needed from staff and family Physical Exam Vital Signs Date Time Temp Pulse Resp B/P (MAP) Pulse Ox O2 Delivery O2 Flow Rate FiO2 01/23/18 20:58 37.2 111 129/85 94 Oxyhood 4.0 01/23/18 19:51 111 20 116/62 97 Mask 4.0 01/23/18 18:33 115 22 114/56 94 Nasal Cannula 4.0 01/23/18 18:04 108 18 108/56 94 Nasal Cannula 4.0 01/23/18 17:30 110 01/23/18 17:10 110 22 100/60 96 Nasal Cannula 4.0 01/23/18 16:34 109 18 93/47 94 Nasal Cannula 4.0 01/23/18 15:12 120 16 109/63 97 Nasal Cannula 4.0 01/23/18 14:45 120 18 114/57 97 Nasal Cannula 4.0 01/23/18 13:28 36.8 124 22 99/57 95 Nasal Cannula 4.0 01/23/18 13:28 86 Room Air 01/23/18 13:25 124 Physical examination General, appears to be in mild distress HEENT: Atraumatic , normocephalic /no jaundice /no pallor /anicteric /no dry mucous membrane /normal external ear inspection Neck: Supple /no swelling /central trach Heart: S1/S2 tachycardia with systolic 2/6 murmur Lungs: Decreased air entry bilaterally, scattered rhonchi no use of accessory muscles of respiration Abdomen: Soft/nontender/no guarding/no rebound/no organomegaly/no pulsatile mass Musculoskeletal: No swelling/no edema/no tenderness/normal range of motion Neuro exam: Extremely weak, but able to follow simple commands and answer very simple question, oriented to where she is. Skin: No rash on exposed skin area/no erythema Extremity: Normal pulse/no pitting edema/no clubbing or cyanosis Endocrine/lymphatic: No obvious lymphadenopathy /no lymphedema Diagnostics Laboratory Results Results Past 24 Hours Test 01/23/18 13:53 01/23/18 14:02 01/23/18 14:37 01/23/18 19:57 Range/Units White Blood Count 12.45 4.8-10.8 K/uL Red Blood Count 4.48 4.2-5.4 M/uL Hemoglobin 13.2 12.0-16.0 g/dL Hematocrit 40.7 37-47 % Mean Corpuscular Volume 90.8 80-100 fL Mean Corpuscular Hemoglobin 29.5 25-34 pg Mean Corpuscular Hemoglobin Concent 32.4 32-36 g/dl Platelet Count 249 130-400 K/uL Mean Platelet Volume 10.8 7.4-10.4 fL Neutrophils (%) (Auto) 86.6 % Lymphocytes (%) (Auto) 9.0 % Monocytes (%) (Auto) 3.0 % Eosinophils (%) (Auto) 0.6 % Basophils (%) (Auto) 0.6 % Neutrophils # (Auto) 10.77 1.4-6.5 K/uL Lymphocytes # (Auto) 1.12 1.2-3.4 K/uL Monocytes # (Auto) 0.37 0.11-0.59 K/uL Eosinophils # (Auto) 0.08 0-0.5 K/uL Basophils # (Auto) 0.08 0-0.2 K/uL RDW Standard Deviation 54.2 36.4-46.3 fL RDW Coefficient of Variation 16.4 11.5-14.5 % Immature Granulocyte % (Auto) 0.2 % Immature Granulocyte # (Auto) 0.03 0.00-0.02 K/uL Erythrocyte Sedimentation Rate 44 0-21 mm/hr Prothrombin Time 10.5 9.0-12.0 SECONDS Prothromb Time International Ratio 1.0 0.9-1.1 Activated Partial Thromboplast Time 26.7 21.0-31.0 SECONDS Partial Thromboplastin Ratio 1.0 Sodium Level 135 136-145 mmol/L Potassium Level 3.9 3.5-5.1 mmol/L Chloride Level 100 98-107 mmol/L Carbon Dioxide Level 27 21-32 mmol/L Anion Gap 7.0 3-11 mmol/L Blood Urea Nitrogen 21 7-18 mg/dl Creatinine 0.61 0.60-1.20 mg/dl Est Creatinine Clear Calc Drug Dose 58.9 ml/min Estimated GFR () 106.5 Estimated GFR (Non- 91.9 BUN/Creatinine Ratio 34.8 10-20 Random Glucose 85 70-99 mg/dl Calcium Level 9.3 8.5-10.1 mg/dl Phosphorus Level 4.2 2.5-4.9 mg/dl Magnesium Level 1.3 1.8-2.4 mg/dl Total Bilirubin 0.6 0.2-1 mg/dl Aspartate Amino Transf (AST/SGOT) 6038 15-37 U/L Alanine Aminotransferase (ALT/SGPT) 2482 12-78 U/L Alkaline Phosphatase 469 45-117 U/L Troponin I < 0.015 0-0.045 ng/ml C-Reactive Protein 8.69 0-0.29 mg/dl Pro-B-Type Natriuretic Peptide 182 0-900 pg/ml Total Protein 6.7 6.4-8.2 gm/dl Albumin 2.6 3.4-5.0 gm/dl Globulin 4.1 2.5-4.0 gm/dl Albumin/Globulin Ratio 0.6 0.9-2 Lipase 98 73-393 U/L Monoscreen NEG NEG Bedside Lactic Acid Venous 1.02 0.90-1.70 mmol/L Urine Color DK YELLOW Urine Appearance TURBID CLEAR Urine pH 6.0 4.5-7.5 Urine Specific [place] 1.020 1.000-1.030 Urine Protein 1+ NEG Urine Glucose (UA) NEG NEG Urine Ketones TRACE NEG Urine Occult Blood 2+ NEG Urine Nitrite NEG NEG Urine Bilirubin NEG NEG Urine Urobilinogen NEG NEG Urine Leukocyte Esterase LARGE NEG Urine WBC (Auto) >30 0-5 /hpf Urine RBC (Auto) 5-10 0-4 /hpf Urine Hyaline Casts (Auto) 1-5 0-5 /lpf Urine Epithelial Cells (Auto) >30 0-5 /lpf Urine Bacteria (Auto) NEG NEG Urine Pathogenic Casts 0 /lpf Urine Yeast (Auto) BUD W/ HYPHAE NONE PRSENT Test 01/23/18 20:58 Range/Units Acetaminophen Level 3 10-30 ug/ml Microbiology Results 01/23/18 Blood Culture, Received Pending 01/23/18 Blood Culture, Received Pending 01/23/18 MRSA DNA Surveillance Screen, Received Pending 01/23/18 Urine Culture, Received Pending Impression Assessment and Plan 72-year-old female with advanced MS,. Wheelchair-bound lives in a nursing facility. Recently diagnosed with left lower lobe pneumonia about 3 weeks ago. At that time her liver enzymes were started to go up. She was found at long term to have low oxygen saturation on room air about 85%, also was found to have persistent fever she was sent to the ED for further evaluation and management. Chest x-ray showed persistent left lower lobe density which could be from her previous pneumonia or could be a new recurrence. In the setting of her hypoxemia. On the other hand her liver enzymes were noted to be extremely elevated and she was found to have a UTI Assessment Sepsis present on admission secondary to above UTI present on admission with history of urinary retention in the past Acute elevation in liver enzymes Borderline hypotension Acute respiratory failure with hypoxia Advanced MS/functional quadriplegia wheelchair-bound severe protein calorie malnutrition Urinary incontinence with history of urinary retention in the past depression/anxiety History of PUD/reflux Plan Admit to telemetry I had a long discussion with casting molder Dr. Steve; differential diagnosis of elevated liver enzymes mainly include shock liver if her blood pressure dropped at long term. Also could be Tylenol toxicity, acute viral hepatitis Ordered Tylenol level, started Acetadote IV fluid hydration, maintain elevated blood pressure, started hydrocortisone for possible relative adrenal insufficiency Ordered viral hepatitis, mononucleosis, CMV Hold Tylenol As far as her UTI and possible pneumonia, ordered speech swallow eval Ordered cefepime/Vanco Urine culture and blood cultures Ordered home meds with adjustment of dosages based on the fulminant liver failure Heparin for DVT prophylaxis Advanced Directives Existing Living Will: Yes Existing Power of Tumbler Machine Operator Helper: Yes Resuscitation Status VTE Prophylaxis Will order VTE Prophylaxis: Yes
[2018-01-23] MEDS: CEFEPIME IV 2,000 MG in SYRINGE 7.5 ML IV SCH (23:18)
[2018-01-23 23:30] VITALS: BP 107/55; PULSE 93; TEMP 37.7; O2SAT 97
[2018-01-23 23:39] LABS: HEP C IGG 13 YRS+OLDER_RFLX NEG (NEG)
[2018-01-23 23:59] VITALS: O2SAT 97
[2018-01-24] VITALS (7 sets, daily range): BP systolic 107–167; BP diastolic 53–85; PULSE 85–100; TEMP 36.3–36.7; O2SAT 96–97; Ht 162.6 cm; Wt 38.1 kg
[2018-01-24] MEDS ORDERED: DEXTROSE 5% IV SCH (01:53)
[2018-01-24] MEDS ORDERED: ACETYLCYSTEINE IV SCH (01:53)
[2018-01-24] MEDS: HYDROCORTISONE IV 50 MG in SYRINGE 0 ML IV SCH ×2 (05:05→13:12)
[2018-01-24 05:35] LABS: HEMATOCRIT 35.7 % (37-47); HEMOGLOBIN 11.7 g/dL (12.0-16.0); MEAN CELL VOLUME 89.5 fL (80-100); MEAN CORPUSCULAR HEMOGLOBIN 29.3 pg (25-34); MEAN CORPUSCULAR HGB CONC 32.8 g/dl (32-36); MEAN PLATELET VOLUME 10.3 fL (7.4-10.4); PLATELET COUNT 216 K/uL (130-400); RED CELL DISTRIBUTION WIDTH CV 16.3 % (11.5-14.5); RED CELL DISTRIBUTION WIDTH SD 53.1 fL (36.4-46.3); WHITE BLOOD COUNT 17.71 K/uL (4.8-10.8)
[2018-01-24 06:12] LABS: BASO % 0.1 %; BASO ABS # 0.01 K/uL (0-0.2); EOS % 0.1 %; EOS ABS # 0.01 K/uL (0-0.5); IG# 0.07 K/uL (0.00-0.02); LYMPH % 2.4 %; LYMPH ABS # 0.43 K/uL (1.2-3.4); MONO % 2.2 %; MONO ABS # 0.39 K/uL (0.11-0.59); NEUT % 94.8 %
[2018-01-24 06:19] LABS: ALBUMIN 2.1 gm/dl (3.4-5.0); CALCIUM 8.6 mg/dl (8.5-10.1); CREATININE 0.4 mg/dl (0.60-1.20); POTASSIUM 2.3 mmol/L (3.5-5.1)
--- NOTE | 2018-01-24 06:39 | DIAGNOSTIC IMAGING REPORT ---
DUPLEX PORTAL HEPATIC VEINS CLINICAL HISTORY: acute elevation in liver enz increased liver enzymes TECHNIQUE: Doppler COMPARISON STUDY: None FINDINGS: Limited study as patient was uncooperative. A high respiratory rate was present. All major hepatic portal and splenic venous structures appear to show antegrade flow. There is no evidence for thrombosis. IMPRESSION: Negative study with all major venous structures patent and antegrade in terms of flow. The above report was generated using voice recognition software. It may contain grammatical, syntax or spelling errors. Electronically signed by: Geovany De Jesus M.D. 01/24/2018 6:38 AM Dictated Date/Time: 01/24/2018 6:37 AM
[2018-01-24] MEDS ORDERED: POTASSIUM CHLORIDE 20 MEQ TABCR PO ONE ×3 (06:45→23:00)
--- NOTE | 2018-01-24 07:00 | DIAGNOSTIC IMAGING REPORT ---
LIVER (ABDOMEN) COMBO CLINICAL HISTORY: hepatitis pain TECHNIQUE: Transaxial acquisition pre and postcontrast enhancement and multiphase fashion. Three-dimensional reformatted image evaluation. COMPARISON STUDY: 08/15/2007 FINDINGS: Combination of left basilar pleural effusion and left basilar consolidative change. Multifocal nodular-type change right lung base. This is slightly progressive compared to the prior exam. Mild fatty infiltration of liver. Small stable left hepatic lobe cyst. Slight prominence of the spleen with uniform enhancement characteristics. Postoperative changes to the stomach which have been described previously. Multiple nonobstructing left renal calcifications generally stable from the prior study. Left renal cyst unchanged. Mild nonobstructive bowel ileus. Increased fecal load within the ascending transverse colon. Postoperative changes of the thoracolumbar spine which demonstrated previously. IMPRESSION: 1. Left basilar pleural effusion with left basilar consolidative change. 2. Multifocal right basilar parenchymal nodular/infiltrative changes. 3. Nonobstructing calcifications left kidney with a stable left renal cyst. 4. Extensive postoperative changes and stabilization procedure the thoracolumbar spine. 5. Increased fecal load within the transverse and a sending colonic regions. 6. 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 The above report was generated using voice recognition software. It may contain grammatical, syntax or spelling errors. Electronically signed by: Geovany De Jesus M.D. 01/24/2018 6:58 AM Dictated Date/Time: 01/24/2018 6:50 AM
[2018-01-24] MEDS: LACTOBACILLUS ACIDOPHILUS 1 GM PACK PO SCH ×3 (07:59→17:04)
[2018-01-24] MEDS: CEFEPIME IV 2,000 MG in SYRINGE 7.5 ML IV SCH ×2 (08:01→17:06)
[2018-01-24] MEDS: POTASSIUM CHLR 10 MEQ / WTR 10 MEQ in PREMIXED WATER 100 ML IV SCH ×3 (08:21→23:22)
[2018-01-24] MEDS: TOPIRAMATE 25 MG TAB PO SCH ×2 (08:42→21:12)
[2018-01-24] MEDS: GABAPENTIN 300 MG CAP PO SCH ×3 (08:42→21:12)
[2018-01-24] MEDS: PANTOprazole SOD 40 MG TAB PO SCH (08:43)
--- NOTE | 2018-01-24 10:19 | Gastrointestinal Consultation ---
Gastrointestinal Consultation Date of Consultation: Jan 24, 2018 Attending Physician: Nohemy Consulting Physician: Dr. Edelmira Steve Reason for Consultation: Elevated LFTs History of Present Illness Patient is a 72 year old female patient who lives at the [facility] and is wheelchair bound with advanced MS. Recently, she had pneumonia and at that time , LFTs were noted to be elevated. She was found to be weak, with a fever and low O2 sat at 85% and was transferred to [facility] ED. Prior to admission, she was on Levaquin. On arrival, LFT were significantly increase: T Bili 0.6, AST 6038, ALT 2482, Alk Phos 469. Imaging suggested a mildly dilated bile duct but stable from previous. No masses, choledocholithiasis or hepatic or portal vein thromboses. She is post cholecystectomy. Blood and urine cultures are pending. CXR with a persistent LLL infiltrate. She is seen and examined while she is resting in bed in the ICU. She is awake, alert, oriented and denies any pain. However, she doesn't recall the details of her transfer here to [facility]. She has nausea, only after receiving pain medications. She denies jaundice or vomiting. Imaging with constipation but she and her nurse state that she is moving her bowels. No acholic stools. Past Medical/Surgical History Medical Problems: (1) Abnormal LFTs (liver function tests) Status: Acute (2) Altered mental status Status: Acute (3) Altered mental status Status: Acute (4) Cellulitis Status: Acute (5) Cystitis Status: Acute (6) Dehydration Status: Acute (7) Dehydration Status: Acute (8) Diarrhea Status: Acute (9) Exacerbation of multiple sclerosis Status: Acute (10) Fall at home Status: Acute (11) Femur fracture Status: Acute (12) Fever Status: Acute (13) Fracture of right hip Status: Acute (14) Headache Status: Acute (15) Hypokalemia Status: Acute (16) Intractable pain Status: Acute (17) Intractable vomiting Status: Acute (18) Migraine Status: Acute (19) Migraine Status: Acute (20) Migraine Status: Acute (21) Migraine Status: Acute (22) Migraine Status: Acute (23) Migraine Status: Acute (24) Migraine Status: Acute (25) Migraine Status: Acute (26) Migraine Status: Acute (27) Migraine Status: Acute (28) Migraine headache Status: Acute (29) Pelvis fracture, right Status: Acute (30) Pneumonia Status: Acute (31) Pressure ulcer of right buttock Status: Acute (32) Proctocolitis Status: Acute (33) Sacral ulcer Status: Acute (34) Status post closed fracture of right hip Status: Acute (35) Tachycardia Status: Acute (36) Tachycardia Status: Acute (37) Tachycardia Status: Acute (38) UTI (urinary tract infection) Status: Acute (39) Weakness Status: Acute (40) Weakness Status: Acute (41) Weakness Status: Acute Past Medical History: 1. Advanced MS 2. Recent pneumonia 3. Prior UTIs Past Surgical History: 1. Hip fracture 2. Cholecystectomy Family History Breast cancer Diabetes mellitus FH: cholecystectomy FHx: heart disease Hypertension Social History Smoking Status: Former Smoker Alcohol Use: none Drug Use: none Housing Status: lives with family Occupation Status: retired Allergies Coded Allergies: Morphine (Verified Adverse Reaction, Intermediate, " MAKES ME MEAN" - CONFUSION, 01/23/18) Current Medications Home Meds and Scripts Medications Dose Route/Sig Max Daily Dose Days Date Category Dose Instructions Guaifenesin 100 Mg/5 Ml Syp 10 Ml PO Q12 01/23/18 Reported Levaquin (Levofloxacin) 750 Mg Tab 750 Mg PO DAILY 01/23/18 Reported Vitamin C (Ascorbic Acid) 500 Mg Tab 500 Mg PO DAILY 12/28/17 Reported Probiotic (Probiotic Product) 1 Cap Cap 1 Cap PO DAILY 12/28/17 Reported Micro-K Ext Rel (Potassium Chloride) 10 Meq Capcr 10 Meq PO DAILY 12/28/17 Reported Oxycodone HCl ER (Oxycodone HCl) 20 Mg Tab 20 Mg PO BID 12/28/17 Reported Mvi With Minerals (Multivitamins/Minerals) Tab 1 Tab PO DAILY 12/28/17 Reported Meclizine HCl 12.5 Mg Tab 12.5 Mg PO Q8 PRN 12/28/17 Reported Imodium A-D (Loperamide Hcl) 2 Mg Tab 2 Mg PO DIRECTED 12/28/17 Reported Cranberry (Cranberry (Vaccinium Macrocarp) 450 Mg Tab 450 Mg PO DAILY 12/28/17 Reported Prednisone 10 Mg Tab 10 Mg PO QAM 08/25/17 Rx Dulcolax (Bisacodyl) 10 Mg Sup 1 Supp MT Q4DAYS PRN 08/15/17 Reported Milk Of Magnesia (Magnesium Hydroxide) 30 Ml Susp 30 Ml PO UD PRN 08/15/17 Reported Zofran (Ondansetron HCl) 4 Mg Tab 4 Mg PO Q8H PRN 08/15/17 Reported Tylenol (Acetaminophen) 650 Mg Supp 1 Supp MT Q6H PRN 08/15/17 Reported Topiramate 25 Mg Tab 25 Mg PO BID 07/22/17 Reported Tylenol (Acetaminophen) 325 Mg Tab 325 Mg PO DAILY PRN 10/16/16 Reported Pantoprazole Sodium (Pantoprazole) 40 Mg Tab 40 Mg PO BID 02/11/16 Reported Imitrex (Sumatriptan Succinate) 100 Mg Tab 100 Mg PO UD PRN 11/29/14 Reported TAKE 1 TABLET FOR MIGRAINE RELIEF, MAY REPEAT 2 HOURS LATER IF NEEDED. MAXIMUM 200 MG/DAY. Midodrine Hcl 5 Mg Tab 5 Mg PO TID 11/29/14 Reported Gabapentin 800 Mg Tab 800 Mg PO TID 11/07/14 Reported Elavil (Amitriptyline Hcl) 75 Mg Tab 75 Mg PO HS 11/07/14 Reported TAKE THIS MEDICATION 2-3 HOURS BEFORE BEDTIME. Review of Systems Constitutional: + fever, + weakness, + fatigue ENT: No hearing loss Respiratory: No cough Cardiac: No chest pain Abdomen: + constipation (denies), No diarrhea Musculoskeletal: No joint pain Female : No dysuria, No urinary frequency, No hematuria Neuro: No memory loss Psych: No depression symptoms Endo: + fatigue Skin: No rash, No jaundice Physical Exam Date Time Temp Pulse Resp B/P (MAP) Pulse Ox O2 Delivery O2 Flow Rate FiO2 01/24/18 04:00 36.6 95 20 107/53 (71) 96 Nasal Cannula 2.0 01/24/18 04:00 97 Mask 2.0 01/23/18 23:59 97 Mask 3.0 01/23/18 23:30 37.7 93 16 107/55 (72) 97 Mask 3.0 01/23/18 20:58 37.2 111 129/85 94 Oxyhood 4.0 01/23/18 19:51 111 20 116/62 97 Mask 4.0 01/23/18 18:33 115 22 114/56 94 Nasal Cannula 4.0 01/23/18 18:04 108 18 108/56 94 Nasal Cannula 4.0 01/23/18 17:30 110 01/23/18 17:10 110 22 100/60 96 Nasal Cannula 4.0 01/23/18 16:34 109 18 93/47 94 Nasal Cannula 4.0 01/23/18 15:12 120 16 109/63 97 Nasal Cannula 4.0 01/23/18 14:45 120 18 114/57 97 Nasal Cannula 4.0 01/23/18 13:28 36.8 124 22 99/57 95 Nasal Cannula 4.0 01/23/18 13:28 86 Room Air 01/23/18 13:25 124 General Appearance: no apparent distress, + cachetic, + pertinent finding ( frail appearing) Eyes: PERRL ENT: pharynx normal Neck: no adenopathy, no JVD Respiratory/Chest: lungs clear Cardiovascular: regular rate, rhythm, no JVD, no murmur Abdomen: non tender, soft Extremities: no pedal edema Neurologic/Psych: alert, normal mood/affect, oriented x 3, + motor weakness ( consistent with dx of MS) Skin: no jaundice Laboratory Results Last 24 Hours Test 01/23/18 13:53 01/23/18 14:02 01/23/18 14:37 01/23/18 19:57 White Blood Count 12.45 K/uL Red Blood Count 4.48 M/uL Hemoglobin 13.2 g/dL Hematocrit 40.7 % Mean Corpuscular Volume 90.8 fL Mean Corpuscular Hemoglobin 29.5 pg Mean Corpuscular Hemoglobin Concent 32.4 g/dl Platelet Count 249 K/uL Mean Platelet Volume 10.8 fL Neutrophils (%) (Auto) 86.6 % Lymphocytes (%) (Auto) 9.0 % Monocytes (%) (Auto) 3.0 % Eosinophils (%) (Auto) 0.6 % Basophils (%) (Auto) 0.6 % Neutrophils # (Auto) 10.77 K/uL Lymphocytes # (Auto) 1.12 K/uL Monocytes # (Auto) 0.37 K/uL Eosinophils # (Auto) 0.08 K/uL Basophils # (Auto) 0.08 K/uL RDW Standard Deviation 54.2 fL RDW Coefficient of Variation 16.4 % Immature Granulocyte % (Auto) 0.2 % Immature Granulocyte # (Auto) 0.03 K/uL Erythrocyte Sedimentation Rate 44 mm/hr Prothrombin Time 10.5 SECONDS Prothromb Time International Ratio 1.0 Activated Partial Thromboplast Time 26.7 SECONDS Partial Thromboplastin Ratio 1.0 Sodium Level 135 mmol/L Potassium Level 3.9 mmol/L Chloride Level 100 mmol/L Carbon Dioxide Level 27 mmol/L Anion Gap 7.0 mmol/L Blood Urea Nitrogen 21 mg/dl Creatinine 0.61 mg/dl Est Creatinine Clear Calc Drug Dose 58.9 ml/min Estimated GFR () 106.5 Estimated GFR (Non- 91.9 BUN/Creatinine Ratio 34.8 Random Glucose 85 mg/dl Calcium Level 9.3 mg/dl Phosphorus Level 4.2 mg/dl Magnesium Level 1.3 mg/dl Total Bilirubin 0.6 mg/dl Aspartate Amino Transf (AST/SGOT) 6038 U/L Alanine Aminotransferase (ALT/SGPT) 2482 U/L Alkaline Phosphatase 469 U/L Troponin I < 0.015 ng/ml C-Reactive Protein 8.69 mg/dl Pro-B-Type Natriuretic Peptide 182 pg/ml Total Protein 6.7 gm/dl Albumin 2.6 gm/dl Globulin 4.1 gm/dl Albumin/Globulin Ratio 0.6 Lipase 98 U/L Monoscreen NEG Bedside Lactic Acid Venous 1.02 mmol/L Urine Color DK YELLOW Urine Appearance TURBID Urine pH 6.0 Urine Specific [place] 1.020 Urine Protein 1+ Urine Glucose (UA) NEG Urine Ketones TRACE Urine Occult Blood 2+ Urine Nitrite NEG Urine Bilirubin NEG Urine Urobilinogen NEG Urine Leukocyte Esterase LARGE Urine WBC (Auto) >30 /hpf Urine RBC (Auto) 5-10 /hpf Urine Hyaline Casts (Auto) 1-5 /lpf Urine Epithelial Cells (Auto) >30 /lpf Urine Bacteria (Auto) NEG Urine Pathogenic Casts /lpf Urine Yeast (Auto) BUD W/ HYPHAE Hepatitis B Surface Antibody NEG Hepatitis C Antibody NEG Test 01/23/18 20:58 01/24/18 05:10 01/24/18 09:09 Acetaminophen Level 3 ug/ml White Blood Count 17.71 K/uL Red Blood Count 3.99 M/uL Hemoglobin 11.7 g/dL Hematocrit 35.7 % Mean Corpuscular Volume 89.5 fL Mean Corpuscular Hemoglobin 29.3 pg Mean Corpuscular Hemoglobin Concent 32.8 g/dl Platelet Count 216 K/uL Mean Platelet Volume 10.3 fL Neutrophils (%) (Auto) 94.8 % Lymphocytes (%) (Auto) 2.4 % Monocytes (%) (Auto) 2.2 % Eosinophils (%) (Auto) 0.1 % Basophils (%) (Auto) 0.1 % Neutrophils # (Auto) 16.80 K/uL Lymphocytes # (Auto) 0.43 K/uL Monocytes # (Auto) 0.39 K/uL Eosinophils # (Auto) 0.01 K/uL Basophils # (Auto) 0.01 K/uL RDW Standard Deviation 53.1 fL RDW Coefficient of Variation 16.3 % Immature Granulocyte % (Auto) 0.4 % Immature Granulocyte # (Auto) 0.07 K/uL Echinocytes 1+ Sodium Level 136 mmol/L Potassium Level 2.3 mmol/L Chloride Level 101 mmol/L Carbon Dioxide Level 24 mmol/L Anion Gap 10.0 mmol/L Blood Urea Nitrogen 18 mg/dl Creatinine 0.40 mg/dl Est Creatinine Clear Calc Drug Dose 83.5 ml/min Estimated GFR () 122.3 Estimated GFR (Non- 105.5 BUN/Creatinine Ratio 43.8 Random Glucose 149 mg/dl Calcium Level 8.6 mg/dl Magnesium Level 1.9 mg/dl Total Bilirubin 2.0 mg/dl Aspartate Amino Transf (AST/SGOT) 2041 U/L Alanine Aminotransferase (ALT/SGPT) 1871 U/L Alkaline Phosphatase 451 U/L Total Protein 6.0 gm/dl Albumin 2.1 gm/dl Globulin 3.9 gm/dl Albumin/Globulin Ratio 0.5 Lactic Acid Level 1.0 mmol/L CT liver protocol 01/23/18: Mild fatty liver, left hepatic lobe cyst. Slight prominence of the spleen. Postoperative changes to the stomach. Mild nonobstructive bowel ileus. 1. Left basilar pleural effusion with left basilar consolidative change. 2. Multifocal right basilar parenchymal nodular/infiltrative changes. 3. Nonobstructing calcifications left kidney with a stable left renal cyst. 4. Extensive postoperative changes and stabilization procedure the thoracolumbar spine. 5. Increased fecal load within the transverse and a sending colonic regions. 6. 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 Gallbladder US 01/23/18: 1. Mild dilatation of the common bile duct (post cholecystectomy) which is unchanged since ultrasound of June 18, 2017 and likely related to previous cholecystectomy. 2. 6.4 cm left renal cyst. Diver doppler US 01/23/18: Negative study with all major venous structures patent and antegrade in terms of flow. Impression Patient is a 72 year old female with elevated LFTs, most consistent with shock liver. Infectious hepatitis is also consider as well as medication induced ( Levaquin), tylenol toxicity (serum levels normal),but are considered less likely. Plan 1. Expect transaminases to continue to trend downward. Bilirubin may slightly increased for the next 1-2 days, then is expected to decrease. 2. Treatment of cause of hypotensive event - identify infection and treat appropriately (UTI? Pneumonia?), IV fluids, BP support if hypotensive - appreciate primary and critical care services management of these needs. 3. Repeat LFTs tomorrow. 4. Will review infectious serology when available. I saw and evaluted the patient. GI consulted for elevated liver enzymes in setting of hypotension. PE: elderly appearing female / NAD no abdominal tenderness Impression: findings and history are most compatible with ischemic hepatitis ( the DDX for this extreme elevation is typically limited to drug (meds/herbal/ abuse), viral infections, ischemia/vascular). Recomendations: continue present IV hydration continue to monitor LAE (bilirubin may rise for a few days) contine NAC for another 24 hours
[2018-01-24] MEDS: HEPARIN SOD 5000 UNIT/0.5 ML CARP SQ SCH ×2 (11:12→21:12)
[2018-01-24] MEDS ORDERED: SUMATRIPTAN SUCC TAB 100 MG TAB PO PRN (12:00)
--- NOTE | 2018-01-24 12:35 | Clinical Documentation Query ---
QUERY 1 OF [address] DELACRUZ, In your clinical opinion is this patient being managed for: ( x) Sacral Pressure ulcer, stage 4, POA ( ) Not Agree ( ) Other explanation of clinical findings (Please Explain) ( ) Unable to determine (Please Define) ( ) Need to Discuss The medical record reflects the following clinical findings, treatment, and risk factors. Clinical Indicators: 72 yo cachectic, w/c bound female presenting with sepsis. Noted WOCN wound images in clinical record. Treatment: Wound care provider and WOCN consult, initially optifoam dressing at time of arrival from nursing facility, plan to start an irrigation wound vac, Risk Factors: age, debility, advanced MS, severe malnutrition QUERY 2 OF 2 In your clinical opinion is this patient being managed for: (x ) UTI due to chronic hill catheter ) Sacral Pressure ulcer, stage 4, POA ( ) Not Agree ( ) Other explanation of clinical findings (Please Explain) ( ) Unable to determine (Please Define) ( ) Need to Discuss The medical record reflects the following clinical findings, treatment, and risk factors. Clinical Indicators: Documentation indicates pt with a chronic hill catheter and currently suspected UTI Treatment: change hill catheter, pending urine cx, IV cefepime, IV vancomycin, IV fluid bolus then continuous, IV zosyn Risk Factors: advanced MS, neurogenic bladder, chronic hill catheter Please clarify and document your clinical opinion in the progress notes and discharge summary. Terms such as "probable", "suspected", "likely", "questionable", "possible", or "still to be ruled out" are acceptable. IF IN AGREEMENT, YOU MUST DOCUMENT ABOVE DIAGNOSTIC STATEMENT IN DAILY PROGRESS NOTES AND DISCHARGE SUMMARY. This document is not part of the patient's record. Thank You, Arcaelis Kidd, RN [phone]
[2018-01-24 12:45] LABS: CALCIUM 9.1 mg/dl (8.5-10.1); CREATININE 0.35 mg/dl (0.60-1.20)
--- NOTE | 2018-01-24 13:42 | Hospitalist Progress Note ---
Hospitalist Progress Note Date of Service Jan 24, 2018. Subjective Pt evaluation today including: conversation w/ patient, conversation w/ family ( on phone ), physical exam, lab review, review of studies, conversation w/ health management consultant (GI- Rodo Chino), review of inpatient medication list Voiding: hill catheter in place Patient resting in bed. Feeling well. Alert/oriented x3. Discussed goals of care and previous discussion w/ palliative care- DNR, but does want to treat current illness and return to [facility]. Discussed w/ as well- agrees. Patient denies any fever, chills, sweats, lightheadedness, dizziness, vision changes, CP, palpitations, edema, SOB, wheezing, cough, abdominal pain, nausea, vomiting, diarrhea, urinary symptoms, melena, numbness/tingling, weakness, muscle/joint pain, anxiety/depression, active bleeding, or new skin discoloration/changes. Discussed w/ GI- likely shock liver from hypotension. No further testing/ treatment. Follow LFTs- bilirubin may rise for a few days. Medications Current Inpatient Medications Medications (Trade) Dose Ordered Sig/Melvin Route Start Time Stop Time Status Last Admin Dose Admin Gabapentin (Neurontin Cap) 300 mg TID PO 01/23/18 21:00 02/22/18 20:59 01/24/18 13:13 300 MG Pantoprazole Sodium (Protonix Tab) 40 mg DAILY PO 01/24/18 09:00 02/23/18 08:59 01/24/18 08:43 40 MG Prednisone (PredniSONE TAB) 10 mg QAM PO 01/24/18 09:00 02/23/18 08:59 Future hold Topiramate (Topamax Tab) 25 mg BID PO 01/23/18 21:00 02/22/18 20:59 01/24/18 08:42 25 MG Sodium Chloride 1,000 ml @ 50 mls/hr Q20H IV 01/23/18 21:00 02/22/18 20:59 01/23/18 21:07 50 MLS/HR Al Hydrox/Mg Hydrox/Simethicone (Maalox Max Susp) 15 ml Q4H PRN PO 01/23/18 19:45 02/22/18 19:44 Magnesium Hydroxide (Milk Of Magnesia Susp) 30 ml Q12H PRN PO 01/23/18 19:45 02/22/18 19:44 Ondansetron HCl (Zofran Inj) 4 mg Q6H PRN IV 01/23/18 19:45 02/22/18 19:44 Ioversol (Optiray 320) 111 ml UD PRN IV 01/23/18 20:15 01/27/18 20:14 Cefepime HCl 2000 mg/Syringe 20 ml @ 5 mls/min Q8H IV 01/24/18 00:00 02/03/18 00:00 01/24/18 08:01 5 MLS/MIN Lactobacillus Acidophilus (Lactinex Granules Pack) 1 gm TIDM PO 01/24/18 07:15 02/23/18 07:59 01/24/18 11:15 1 GM Acetylcysteine 4350 mg/Dextrose 1,021.75 ml @ 63 mls/hr 0153 IV 01/24/18 01:53 01/24/18 18:07 01/24/18 03:25 63 MLS/HR Hydrocortisone Sodium Succinate 50 mg/Syringe 1 ml @ 4 mls/min Q8H IV 01/23/18 22:00 01/24/18 21:59 01/24/18 13:12 4 MLS/MIN Heparin Sodium (Porcine) (Heparin Sq 5000 Unit/0.5ml) 5,000 unit Q12 SQ 01/24/18 09:00 02/23/18 08:59 01/24/18 11:12 5,000 UNIT Heparin Sodium (Porcine) (Heparin 100 Unit/ml 5ml Flush) 5 ml PRN PRN IV 01/24/18 01:15 02/23/18 01:14 Amitriptyline HCl (Elavil Tab) 25 mg HS PO 01/24/18 21:00 02/23/18 20:59 Sumatriptan Succinate (Imitrex Tab) 100 mg DAILY PRN PO 01/24/18 12:00 02/23/18 11:59 01/24/18 13:13 100 MG Polyethylene (Miralax Powder Packet) 17 gm DAILY PO 01/25/18 09:00 02/22/18 19:44 Fluconazole/ Sodium Chloride 100 mg/Prmx 50 ml @ 100 mls/hr Q24H IV 01/25/18 09:00 02/04/18 08:59 Objective Vital Signs Date Time Temp Pulse Resp B/P (MAP) Pulse Ox O2 Delivery O2 Flow Rate FiO2 01/24/18 08:00 36.6 90 18 148/70 (96) 96 Room Air 01/24/18 08:00 Room Air 01/24/18 04:00 36.6 95 20 107/53 (71) 96 Nasal Cannula 2.0 01/24/18 04:00 97 Mask 2.0 01/23/18 23:59 97 Mask 3.0 01/23/18 23:30 37.7 93 16 107/55 (72) 97 Mask 3.0 01/23/18 20:58 37.2 111 129/85 94 Oxyhood 4.0 01/23/18 19:51 111 20 116/62 97 Mask 4.0 01/23/18 18:33 115 22 114/56 94 Nasal Cannula 4.0 01/23/18 18:04 108 18 108/56 94 Nasal Cannula 4.0 01/23/18 17:30 110 01/23/18 17:10 110 22 100/60 96 Nasal Cannula 4.0 01/23/18 16:34 109 18 93/47 94 Nasal Cannula 4.0 01/23/18 15:12 120 16 109/63 97 Nasal Cannula 4.0 01/23/18 14:45 120 18 114/57 97 Nasal Cannula 4.0 01/23/18 13:28 36.8 124 22 99/57 95 Nasal Cannula 4.0 01/23/18 13:28 86 Room Air Physical Exam General Appearance: no apparent distress, + cachetic, + pertinent finding (O2 NC ) Eyes: normal inspection, PERRL ENT: hearing grossly normal Neck: supple Respiratory/Chest: lungs clear, no respiratory distress, no accessory muscle use Cardiovascular: regular rate, rhythm, + systolic murmur Abdomen: normal bowel sounds, non tender, soft Extremities: no pedal edema, no calf tenderness Neurologic/Psychiatric: alert, oriented x 3 Skin: normal color, no rash, + pallor Laboratory Results Last 24 Hours Test 01/23/18 13:53 01/23/18 14:02 01/23/18 14:37 01/23/18 19:57 White Blood Count 12.45 K/uL Red Blood Count 4.48 M/uL Hemoglobin 13.2 g/dL Hematocrit 40.7 % Mean Corpuscular Volume 90.8 fL Mean Corpuscular Hemoglobin 29.5 pg Mean Corpuscular Hemoglobin Concent 32.4 g/dl Platelet Count 249 K/uL Mean Platelet Volume 10.8 fL Neutrophils (%) (Auto) 86.6 % Lymphocytes (%) (Auto) 9.0 % Monocytes (%) (Auto) 3.0 % Eosinophils (%) (Auto) 0.6 % Basophils (%) (Auto) 0.6 % Neutrophils # (Auto) 10.77 K/uL Lymphocytes # (Auto) 1.12 K/uL Monocytes # (Auto) 0.37 K/uL Eosinophils # (Auto) 0.08 K/uL Basophils # (Auto) 0.08 K/uL RDW Standard Deviation 54.2 fL RDW Coefficient of Variation 16.4 % Immature Granulocyte % (Auto) 0.2 % Immature Granulocyte # (Auto) 0.03 K/uL Erythrocyte Sedimentation Rate 44 mm/hr Prothrombin Time 10.5 SECONDS Prothromb Time International Ratio 1.0 Activated Partial Thromboplast Time 26.7 SECONDS Partial Thromboplastin Ratio 1.0 Sodium Level 135 mmol/L Potassium Level 3.9 mmol/L Chloride Level 100 mmol/L Carbon Dioxide Level 27 mmol/L Anion Gap 7.0 mmol/L Blood Urea Nitrogen 21 mg/dl Creatinine 0.61 mg/dl Est Creatinine Clear Calc Drug Dose 58.9 ml/min Estimated GFR () 106.5 Estimated GFR (Non- 91.9 BUN/Creatinine Ratio 34.8 Random Glucose 85 mg/dl Calcium Level 9.3 mg/dl Phosphorus Level 4.2 mg/dl Magnesium Level 1.3 mg/dl Total Bilirubin 0.6 mg/dl Aspartate Amino Transf (AST/SGOT) 6038 U/L Alanine Aminotransferase (ALT/SGPT) 2482 U/L Alkaline Phosphatase 469 U/L Troponin I < 0.015 ng/ml C-Reactive Protein 8.69 mg/dl Pro-B-Type Natriuretic Peptide 182 pg/ml Total Protein 6.7 gm/dl Albumin 2.6 gm/dl Globulin 4.1 gm/dl Albumin/Globulin Ratio 0.6 Lipase 98 U/L Monoscreen NEG Bedside Lactic Acid Venous 1.02 mmol/L Urine Color DK YELLOW Urine Appearance TURBID Urine pH 6.0 Urine Specific [place] 1.020 Urine Protein 1+ Urine Glucose (UA) NEG Urine Ketones TRACE Urine Occult Blood 2+ Urine Nitrite NEG Urine Bilirubin NEG Urine Urobilinogen NEG Urine Leukocyte Esterase LARGE Urine WBC (Auto) >30 /hpf Urine RBC (Auto) 5-10 /hpf Urine Hyaline Casts (Auto) 1-5 /lpf Urine Epithelial Cells (Auto) >30 /lpf Urine Bacteria (Auto) NEG Urine Pathogenic Casts /lpf Urine Yeast (Auto) BUD W/ HYPHAE Hepatitis B Surface Antibody NEG Hepatitis C Antibody NEG Test 01/23/18 20:58 01/24/18 05:10 01/24/18 09:09 01/24/18 11:57 Acetaminophen Level 3 ug/ml White Blood Count 17.71 K/uL Red Blood Count 3.99 M/uL Hemoglobin 11.7 g/dL Hematocrit 35.7 % Mean Corpuscular Volume 89.5 fL Mean Corpuscular Hemoglobin 29.3 pg Mean Corpuscular Hemoglobin Concent 32.8 g/dl Platelet Count 216 K/uL Mean Platelet Volume 10.3 fL Neutrophils (%) (Auto) 94.8 % Lymphocytes (%) (Auto) 2.4 % Monocytes (%) (Auto) 2.2 % Eosinophils (%) (Auto) 0.1 % Basophils (%) (Auto) 0.1 % Neutrophils # (Auto) 16.80 K/uL Lymphocytes # (Auto) 0.43 K/uL Monocytes # (Auto) 0.39 K/uL Eosinophils # (Auto) 0.01 K/uL Basophils # (Auto) 0.01 K/uL RDW Standard Deviation 53.1 fL RDW Coefficient of Variation 16.3 % Immature Granulocyte % (Auto) 0.4 % Immature Granulocyte # (Auto) 0.07 K/uL Echinocytes 1+ Sodium Level 136 mmol/L 137 mmol/L Potassium Level 2.3 mmol/L 3.0 mmol/L Chloride Level 101 mmol/L 104 mmol/L Carbon Dioxide Level 24 mmol/L 23 mmol/L Anion Gap 10.0 mmol/L 10.0 mmol/L Blood Urea Nitrogen 18 mg/dl 15 mg/dl Creatinine 0.40 mg/dl 0.35 mg/dl Est Creatinine Clear Calc Drug Dose 83.5 ml/min 95.4 ml/min Estimated GFR () 122.3 127.8 Estimated GFR (Non- 105.5 110.3 BUN/Creatinine Ratio 43.8 42.6 Random Glucose 149 mg/dl 144 mg/dl Calcium Level 8.6 mg/dl 9.1 mg/dl Magnesium Level 1.9 mg/dl Total Bilirubin 2.0 mg/dl Aspartate Amino Transf (AST/SGOT) 2041 U/L Alanine Aminotransferase (ALT/SGPT) 1871 U/L Alkaline Phosphatase 451 U/L Total Protein 6.0 gm/dl Albumin 2.1 gm/dl Globulin 3.9 gm/dl Albumin/Globulin Ratio 0.5 Lactic Acid Level 1.0 mmol/L Assessment and Plan 72-year-old female with advanced MS,. Wheelchair-bound lives in a nursing facility. Recently diagnosed with left lower lobe pneumonia about 3 weeks ago. At that time her liver enzymes were started to go up. [facility] was found at [facility] to have low oxygen saturation on room air about 85%, also was found to have persistent fever she was sent to the ED for further evaluation and management. Chest x-ray showed persistent left lower lobe density which could be from her previous pneumonia or could be a new recurrence. In the setting of her hypoxemia. On the other hand her liver enzymes were noted to be extremely elevated and she was found to have a UTI Acute respiratory failure w/ hypoxia secondary to PNA/UTI POA w/ indwelling [place]: - Admitted to tele for cardiac monitoring- no acute events - O2 protocol - IV Vancomycin + Cefepime - Probiotics - DuoNebs QID and PRN for SOB/wheezing - Leukocytosis- WORSENING- ?secondary to Hydrocortisone vs infection- continue to monitor - IVF @ 50 ml/hr - Speech therapy consulted, appreciate recommendations - BCx pending - UCx w/ ford albicans- will treat w/ Diflucan 100 mg daily x7 days Elevated LFTs, secondary to shock liver: - GI consulted, appreciate recommendations- continue to follow LFTs, bilirubin may rise for the next few days - Abdominal CT/liver US reviewed - Infectious serologies pending - Tylenol level 3- treated w/ IV Acetylcysteine prophylactically Palliative care consultation: Discussed w/ and patient that recurrent hospital visits and continued deterioration is likely- will request palliative care consultation, ?hospice outpatient to avoid returning to hospital. Stage IV pressure sacral ulcer: Wound care consulted, appreciate recommendations Hypokalemia: Replace w/ KCL supplement, follow PRP and replace PRN Hypomagnesemia- RESOLVED: Replaced w/ IV Mag supplement Fecal retention on abdominal CT: MiraLAX daily, Milk of Mag PRN Depression w/ anxiety, advanced MS/functional quadriplegia wheelchair-bound: - Continue Elavil 25 mg HS, Gabapentin 300 mg TID, Topamax 25 mg BID - IV Hydrocortisone TID for stress dosing due to hypotension at admission- improving- will resume chronic Prednisone tomorrow and d/c Hydrocortisone Severe protein calorie malnutrition: Nutrition consulted GI prophylaxis, GERD: Protonix daily DVT prophylaxis: Heparin SQ BID Code status: LEVEL V, DNR Dispo: From [facility]- consulted
--- NOTE | 2018-01-24 14:18 | Wound Consultation: Inpatient ---
Wound Consultation Date of Consultation: Jan 24, 2018. Attending Physician: Lobo Bauer MD, PhD Reason for Consultation: Patient was admitted yesterday [facility] for further evaluation of potential sepsis and elevated liver enzymes. Patient currently is in no apparent distress and cooperative in her history. Patient states she denies any current fever chills or night sweats. Patient is uncertain how long she has had this ulceration in her lower back region however it has been at least over 8 or 9 months. Patient has a long-standing history of MS and is wheelchair bound. Patient denies any chest pain shortness of breath abdominal discomfort nausea or vomiting. Patient denies any other systemic complaints at this time. Family History Breast cancer Diabetes mellitus FH: cholecystectomy FHx: heart disease Hypertension Social History Smoking Status: Former Smoker Drug Use: none Housing Status: lives with family Occupation Status: retired Allergies Coded Allergies: Morphine (Verified Adverse Reaction, Intermediate, " MAKES ME MEAN" - CONFUSION, 01/23/18) Home Medications Scheduled Amitriptyline Hcl (Elavil), 75 MG PO HS Ascorbic Acid (Vitamin C), 500 MG PO DAILY Cranberry (Vaccinium Macrocarp (Cranberry), 450 MG PO DAILY Gabapentin (Gabapentin), 800 MG PO TID Guaifenesin (Guaifenesin), 10 ML PO Q12 Levofloxacin (Levaquin), 750 MG PO DAILY Loperamide Hcl (Imodium A-D), 2 MG PO DIRECTED Midodrine Hcl (Midodrine Hcl), 5 MG PO TID Multivitamins/Minerals (Mvi With Minerals), 1 TAB PO DAILY Oxycodone HCl (Oxycodone HCl ER), 20 MG PO BID Pantoprazole (Pantoprazole Sodium), 40 MG PO BID Potassium Chloride (Micro-K Ext Rel), 10 MEQ PO DAILY Prednisone Tab (Prednisone), 10 MG PO QAM Probiotic Product (Probiotic), 1 CAP PO DAILY Topiramate (Topiramate), 25 MG PO BID Scheduled PRN Acetaminophen (Tylenol), 1 SUPP MT Q6H PRN for MILD PAIN OR FEVER Acetaminophen Tab (Tylenol), 325 MG PO DAILY PRN for Pain or Fever Bisacodyl (Dulcolax), 1 SUPP MT Q4DAYS PRN for Constipation Magnesium Hydroxide (Milk Of Magnesia), 30 ML PO UD PRN for Constipation Meclizine HCl (Meclizine HCl), 12.5 MG PO Q8 PRN for Dizziness or Vertigo Ondansetron Hcl (Zofran), 4 MG PO Q8H PRN for Nausea Sumatriptan Succinate (Imitrex), 100 MG PO UD PRN for Migraine Inpatient Medications Current Inpatient Medications Medications (Trade) Dose Ordered Sig/Melvin Route Start Time Stop Time Status Last Admin Dose Admin Gabapentin (Neurontin Cap) 300 mg TID PO 01/23/18 21:00 02/22/18 20:59 01/24/18 13:13 300 MG Pantoprazole Sodium (Protonix Tab) 40 mg DAILY PO 01/24/18 09:00 02/23/18 08:59 01/24/18 08:43 40 MG Prednisone (PredniSONE TAB) 10 mg QAM PO 01/24/18 09:00 02/23/18 08:59 Future hold Topiramate (Topamax Tab) 25 mg BID PO 01/23/18 21:00 02/22/18 20:59 01/24/18 08:42 25 MG Sodium Chloride 1,000 ml @ 50 mls/hr Q20H IV 01/23/18 21:00 02/22/18 20:59 01/23/18 21:07 50 MLS/HR Al Hydrox/Mg Hydrox/Simethicone (Maalox Max Susp) 15 ml Q4H PRN PO 01/23/18 19:45 02/22/18 19:44 Magnesium Hydroxide (Milk Of Magnesia Susp) 30 ml Q12H PRN PO 01/23/18 19:45 02/22/18 19:44 Ondansetron HCl (Zofran Inj) 4 mg Q6H PRN IV 01/23/18 19:45 02/22/18 19:44 Ioversol (Optiray 320) 111 ml UD PRN IV 01/23/18 20:15 01/27/18 20:14 Cefepime HCl 2000 mg/Syringe 20 ml @ 5 mls/min Q8H IV 01/24/18 00:00 02/03/18 00:00 01/24/18 08:01 5 MLS/MIN Lactobacillus Acidophilus (Lactinex Granules Pack) 1 gm TIDM PO 01/24/18 07:15 02/23/18 07:59 01/24/18 11:15 1 GM Acetylcysteine 4350 mg/Dextrose 1,021.75 ml @ 63 mls/hr 0153 IV 01/24/18 01:53 01/24/18 18:07 01/24/18 03:25 63 MLS/HR Hydrocortisone Sodium Succinate 50 mg/Syringe 1 ml @ 4 mls/min Q8H IV 01/23/18 22:00 01/24/18 21:59 01/24/18 13:12 4 MLS/MIN Heparin Sodium (Porcine) (Heparin Sq 5000 Unit/0.5ml) 5,000 unit Q12 SQ 01/24/18 09:00 02/23/18 08:59 01/24/18 11:12 5,000 UNIT Heparin Sodium (Porcine) (Heparin 100 Unit/ml 5ml Flush) 5 ml PRN PRN IV 01/24/18 01:15 02/23/18 01:14 Amitriptyline HCl (Elavil Tab) 25 mg HS PO 01/24/18 21:00 02/23/18 20:59 Sumatriptan Succinate (Imitrex Tab) 100 mg DAILY PRN PO 01/24/18 12:00 02/23/18 11:59 01/24/18 13:13 100 MG Polyethylene (Miralax Powder Packet) 17 gm DAILY PO 01/25/18 09:00 02/22/18 19:44 Fluconazole/ Sodium Chloride 100 mg/Prmx 50 ml @ 100 mls/hr Q24H IV 01/25/18 09:00 02/04/18 08:59 Physical Exam Date Time Temp Pulse Resp B/P (MAP) Pulse Ox O2 Delivery O2 Flow Rate FiO2 01/24/18 08:00 36.6 90 18 148/70 (96) 96 Room Air 01/24/18 08:00 Room Air 01/24/18 04:00 36.6 95 20 107/53 (71) 96 Nasal Cannula 2.0 01/24/18 04:00 97 Mask 2.0 01/23/18 23:59 97 Mask 3.0 01/23/18 23:30 37.7 93 16 107/55 (72) 97 Mask 3.0 01/23/18 20:58 37.2 111 129/85 94 Oxyhood 4.0 01/23/18 19:51 111 20 116/62 97 Mask 4.0 01/23/18 18:33 115 22 114/56 94 Nasal Cannula 4.0 01/23/18 18:04 108 18 108/56 94 Nasal Cannula 4.0 01/23/18 17:30 110 01/23/18 17:10 110 22 100/60 96 Nasal Cannula 4.0 01/23/18 16:34 109 18 93/47 94 Nasal Cannula 4.0 01/23/18 15:12 120 16 109/63 97 Nasal Cannula 4.0 01/23/18 14:45 120 18 114/57 97 Nasal Cannula 4.0 General: The patient is lying in a hospital bed in no distress. Alert, cooperative and appropriate to all questions. HEENT: Pupils equal and reactive to light. Sclera clear, EOM intact. Neck: Supple, No JVD noted Chest: CTA in all marcos. No deformity Heart: RRR without murmurs, S3, S4, thrills, rubs or heaves Back: Large stage IV sacral ulcer is present measuring 7.3 x 5 x 1.2 cm with circumferential undermining of 1.9 cm. There is some minimal scattered slough in the base. The bone is palpable in the coccyx region. No active drainage or odor present. No significant periwound erythema or eschar formation noted. No tenderness to palpation or fluctuance noted. Extremities: No edema, No calf tenderness, Full ROM Neurological: Alert and oriented x3. Laboratory Results Last 24 Hours Test 01/23/18 14:37 01/23/18 19:57 01/23/18 20:58 01/24/18 05:10 Urine Color DK YELLOW Urine Appearance TURBID Urine pH 6.0 Urine Specific [place] 1.020 Urine Protein 1+ Urine Glucose (UA) NEG Urine Ketones TRACE Urine Occult Blood 2+ Urine Nitrite NEG Urine Bilirubin NEG Urine Urobilinogen NEG Urine Leukocyte Esterase LARGE Urine WBC (Auto) >30 /hpf Urine RBC (Auto) 5-10 /hpf Urine Hyaline Casts (Auto) 1-5 /lpf Urine Epithelial Cells (Auto) >30 /lpf Urine Bacteria (Auto) NEG Urine Pathogenic Casts /lpf Urine Yeast (Auto) BUD W/ HYPHAE Hepatitis B Surface Antibody NEG Hepatitis C Antibody NEG Acetaminophen Level 3 ug/ml White Blood Count 17.71 K/uL Red Blood Count 3.99 M/uL Hemoglobin 11.7 g/dL Hematocrit 35.7 % Mean Corpuscular Volume 89.5 fL Mean Corpuscular Hemoglobin 29.3 pg Mean Corpuscular Hemoglobin Concent 32.8 g/dl Platelet Count 216 K/uL Mean Platelet Volume 10.3 fL Neutrophils (%) (Auto) 94.8 % Lymphocytes (%) (Auto) 2.4 % Monocytes (%) (Auto) 2.2 % Eosinophils (%) (Auto) 0.1 % Basophils (%) (Auto) 0.1 % Neutrophils # (Auto) 16.80 K/uL Lymphocytes # (Auto) 0.43 K/uL Monocytes # (Auto) 0.39 K/uL Eosinophils # (Auto) 0.01 K/uL Basophils # (Auto) 0.01 K/uL RDW Standard Deviation 53.1 fL RDW Coefficient of Variation 16.3 % Immature Granulocyte % (Auto) 0.4 % Immature Granulocyte # (Auto) 0.07 K/uL Echinocytes 1+ Sodium Level 136 mmol/L Potassium Level 2.3 mmol/L Chloride Level 101 mmol/L Carbon Dioxide Level 24 mmol/L Anion Gap 10.0 mmol/L Blood Urea Nitrogen 18 mg/dl Creatinine 0.40 mg/dl Est Creatinine Clear Calc Drug Dose 83.5 ml/min Estimated GFR () 122.3 Estimated GFR (Non- 105.5 BUN/Creatinine Ratio 43.8 Random Glucose 149 mg/dl Calcium Level 8.6 mg/dl Magnesium Level 1.9 mg/dl Total Bilirubin 2.0 mg/dl Aspartate Amino Transf (AST/SGOT) 2041 U/L Alanine Aminotransferase (ALT/SGPT) 1871 U/L Alkaline Phosphatase 451 U/L Total Protein 6.0 gm/dl Albumin 2.1 gm/dl Globulin 3.9 gm/dl Albumin/Globulin Ratio 0.5 Test 01/24/18 09:09 01/24/18 11:57 Lactic Acid Level 1.0 mmol/L Sodium Level 137 mmol/L Potassium Level 3.0 mmol/L Chloride Level 104 mmol/L Carbon Dioxide Level 23 mmol/L Anion Gap 10.0 mmol/L Blood Urea Nitrogen 15 mg/dl Creatinine 0.35 mg/dl Est Creatinine Clear Calc Drug Dose 95.4 ml/min Estimated GFR () 127.8 Estimated GFR (Non- 110.3 BUN/Creatinine Ratio 42.6 Random Glucose 144 mg/dl Calcium Level 9.1 mg/dl Assessment & Plan Assessment: Stage IV pressure ulcer sacral coccyx region Plan: No debridement is indicated at this time. The site will be managed with a Veraflo irrigating wound VAC. Settings 10 minutes of instillation normal saline followed by 2 hours of VAC therapy alternating. Site will continue to be monitored and reevaluated in 48 hours. Culture was obtained.
[2018-01-24] MEDS: FLUCONAZOLE / NSS 100 MG in PREMIXED NSS 50 ML IV SCH (15:04)
[2018-01-24] MEDS: ALBUT/IPRATROP 3MG/0.5MG NEB 3 ML VIAL INH SCH ×2 (15:38→18:46)
--- NOTE | 2018-01-24 15:51 | Palliative Care Consultation ---
Consultation Date of Consultation: Jan 24, 2018. Requesting Physician: Dr. Bauer Attending Physician: Dr. Bauer Reason for Consultation: Goals of care History of Present Illness This 72 year old female patient with PMH advanced MS who is wheelchair/bed-bound , presented to the hospital from the [facility] with weakness and low oxygen saturation. In ED, found to have recurrent LLL pneumonia and elevated LFTs. She was seen by GI who is attributing the elevated LFTs to shock liver due to episode of hypotension. No further workup warranted at this time. She is being treated for UTI, pnuemonia, and for large sacral decubitus ulcer. Patient has had pneumonia in the past, has been seen by speech therapy several times and was determined not to have swallowing issues. Palliative care was involved during patient's previous admission in August 2017 and she made herself a DNR and wanted to focus on comfort. She decided at that time she would not want a feeding tube. Palliative care is now reconsulted to establish goals. I met with the patient in room 105. She is awake, alert and oriented x4, pleasant and talkative. Denies any complaints at this time. Speech is reconsulted and will be seeing her this afternoon, patient denies any trouble swallowing. Patient confirmed that she still is DNR, wants to focus on comfort and conservative management of her problems. She wants to meet tomorrow when her is available to further discuss. I called patient's , Melvin , we will meet tomorrow at 1100. Past Medical/Surgical History Medical History: Advanced MS Recurrent pneumonia UTI Cellulitis Wheelchair/bed-bound Dysphagia/odynophagia Esophagitis Social History Smoking Status: Former Smoker History of Alcohol Use: No Drug Use: none Housing Status: fdc Occupation Status: retired Review of Systems Constitutional: + weakness (at baseline) ENT: No trouble swallowing (denies) Respiratory: No cough, No shortness of breath Cardiac: No chest pain, No edema Abdomen: No pain, No nausea, No vomiting Female : No problem reported Psychiatric: No depression symptoms, No anxiety Allergies Coded Allergies: Morphine (Verified Adverse Reaction, Intermediate, " MAKES ME MEAN" - CONFUSION, 01/23/18) Medications Current Inpatient Medications Medications (Trade) Dose Ordered Sig/Melvin Route Start Time Stop Time Status Last Admin Dose Admin Gabapentin (Neurontin Cap) 300 mg TID PO 01/23/18 21:00 02/22/18 20:59 01/24/18 13:13 300 MG Pantoprazole Sodium (Protonix Tab) 40 mg DAILY PO 01/24/18 09:00 02/23/18 08:59 01/24/18 08:43 40 MG Prednisone (PredniSONE TAB) 10 mg QAM PO 01/24/18 09:00 02/23/18 08:59 Future hold Topiramate (Topamax Tab) 25 mg BID PO 01/23/18 21:00 02/22/18 20:59 01/24/18 08:42 25 MG Sodium Chloride 1,000 ml @ 50 mls/hr Q20H IV 01/23/18 21:00 02/22/18 20:59 01/23/18 21:07 50 MLS/HR Al Hydrox/Mg Hydrox/Simethicone (Maalox Max Susp) 15 ml Q4H PRN PO 01/23/18 19:45 02/22/18 19:44 Magnesium Hydroxide (Milk Of Magnesia Susp) 30 ml Q12H PRN PO 01/23/18 19:45 02/22/18 19:44 Ondansetron HCl (Zofran Inj) 4 mg Q6H PRN IV 01/23/18 19:45 02/22/18 19:44 Ioversol (Optiray 320) 111 ml UD PRN IV 01/23/18 20:15 01/27/18 20:14 Cefepime HCl 2000 mg/Syringe 20 ml @ 5 mls/min Q8H IV 01/24/18 00:00 02/03/18 00:00 01/24/18 08:01 5 MLS/MIN Lactobacillus Acidophilus (Lactinex Granules Pack) 1 gm TIDM PO 01/24/18 07:15 02/23/18 07:59 01/24/18 11:15 1 GM Acetylcysteine 4350 mg/Dextrose 1,021.75 ml @ 63 mls/hr 0153 IV 01/24/18 01:53 01/24/18 18:07 01/24/18 03:25 63 MLS/HR Hydrocortisone Sodium Succinate 50 mg/Syringe 1 ml @ 4 mls/min Q8H IV 01/23/18 22:00 01/24/18 21:59 01/24/18 13:12 4 MLS/MIN Heparin Sodium (Porcine) (Heparin Sq 5000 Unit/0.5ml) 5,000 unit Q12 SQ 01/24/18 09:00 02/23/18 08:59 01/24/18 11:12 5,000 UNIT Heparin Sodium (Porcine) (Heparin 100 Unit/ml 5ml Flush) 5 ml PRN PRN IV 01/24/18 01:15 02/23/18 01:14 Amitriptyline HCl (Elavil Tab) 25 mg HS PO 01/24/18 21:00 02/23/18 20:59 Sumatriptan Succinate (Imitrex Tab) 100 mg DAILY PRN PO 01/24/18 12:00 02/23/18 11:59 01/24/18 13:13 100 MG Polyethylene (Miralax Powder Packet) 17 gm DAILY PO 01/25/18 09:00 02/22/18 19:44 Fluconazole/ Sodium Chloride 100 mg/Prmx 50 ml @ 100 mls/hr Q24H IV 01/24/18 14:30 02/04/18 08:59 01/24/18 15:04 100 MLS/HR Albuterol/ Ipratropium (Duoneb) 3 ml QIDR INH 01/24/18 16:00 02/23/18 15:59 Physical Exam Date Time Temp Pulse Resp B/P (MAP) Pulse Ox O2 Delivery O2 Flow Rate FiO2 01/24/18 08:00 36.6 90 18 148/70 (96) 96 Room Air 01/24/18 08:00 Room Air 01/24/18 04:00 36.6 95 20 107/53 (71) 96 Nasal Cannula 2.0 01/24/18 04:00 97 Mask 2.0 01/23/18 23:59 97 Mask 3.0 01/23/18 23:30 37.7 93 16 107/55 (72) 97 Mask 3.0 01/23/18 20:58 37.2 111 129/85 94 Oxyhood 4.0 01/23/18 19:51 111 20 116/62 97 Mask 4.0 01/23/18 18:33 115 22 114/56 94 Nasal Cannula 4.0 01/23/18 18:04 108 18 108/56 94 Nasal Cannula 4.0 01/23/18 17:30 110 01/23/18 17:10 110 22 100/60 96 Nasal Cannula 4.0 01/23/18 16:34 109 18 93/47 94 Nasal Cannula 4.0 General Appearance: no apparent distress, + cachetic, + thin ENT: hearing grossly normal Neck: supple, no JVD Respiratory: no respiratory distress, no accessory muscle use, + decreased breath sounds Cardiovascular: regular rate, rhythm, no edema Abdomen: normal bowel sounds, non tender, soft Neurologic/Psychiatric: alert, normal mood/affect, oriented x 3 Laboratory Results Last 24 Hours Test 01/23/18 19:57 01/23/18 20:58 01/24/18 05:10 01/24/18 09:09 Hepatitis B Surface Antibody NEG Hepatitis C Antibody NEG Acetaminophen Level 3 ug/ml White Blood Count 17.71 K/uL Red Blood Count 3.99 M/uL Hemoglobin 11.7 g/dL Hematocrit 35.7 % Mean Corpuscular Volume 89.5 fL Mean Corpuscular Hemoglobin 29.3 pg Mean Corpuscular Hemoglobin Concent 32.8 g/dl Platelet Count 216 K/uL Mean Platelet Volume 10.3 fL Neutrophils (%) (Auto) 94.8 % Lymphocytes (%) (Auto) 2.4 % Monocytes (%) (Auto) 2.2 % Eosinophils (%) (Auto) 0.1 % Basophils (%) (Auto) 0.1 % Neutrophils # (Auto) 16.80 K/uL Lymphocytes # (Auto) 0.43 K/uL Monocytes # (Auto) 0.39 K/uL Eosinophils # (Auto) 0.01 K/uL Basophils # (Auto) 0.01 K/uL RDW Standard Deviation 53.1 fL RDW Coefficient of Variation 16.3 % Immature Granulocyte % (Auto) 0.4 % Immature Granulocyte # (Auto) 0.07 K/uL Echinocytes 1+ Sodium Level 136 mmol/L Potassium Level 2.3 mmol/L Chloride Level 101 mmol/L Carbon Dioxide Level 24 mmol/L Anion Gap 10.0 mmol/L Blood Urea Nitrogen 18 mg/dl Creatinine 0.40 mg/dl Est Creatinine Clear Calc Drug Dose 83.5 ml/min Estimated GFR () 122.3 Estimated GFR (Non- 105.5 BUN/Creatinine Ratio 43.8 Random Glucose 149 mg/dl Calcium Level 8.6 mg/dl Magnesium Level 1.9 mg/dl Total Bilirubin 2.0 mg/dl Aspartate Amino Transf (AST/SGOT) 2041 U/L Alanine Aminotransferase (ALT/SGPT) 1871 U/L Alkaline Phosphatase 451 U/L Total Protein 6.0 gm/dl Albumin 2.1 gm/dl Globulin 3.9 gm/dl Albumin/Globulin Ratio 0.5 Lactic Acid Level 1.0 mmol/L Test 01/24/18 11:57 Sodium Level 137 mmol/L Potassium Level 3.0 mmol/L Chloride Level 104 mmol/L Carbon Dioxide Level 23 mmol/L Anion Gap 10.0 mmol/L Blood Urea Nitrogen 15 mg/dl Creatinine 0.35 mg/dl Est Creatinine Clear Calc Drug Dose 95.4 ml/min Estimated GFR () 127.8 Estimated GFR (Non- 110.3 BUN/Creatinine Ratio 42.6 Random Glucose 144 mg/dl Calcium Level 9.1 mg/dl Assessment & Plan Palliative Performance Scale: 30 % Problem list: Weakness 2/2 advanced MS Large sacral decubitus ulcer Pneumonia UTI Shock liver Goals of care Palliative care recs: -Patient is DNR. -She would like to focus on comfort and conservative management of disease. Would like to avoid invasive/aggressive procedures or treatment. -Previously decided that patient would never want feeding tube. -POLST form was completed by patient in August that states: DNR, comfort measures only, abx with comfort as the goal, no artificial hydration/nutrition. -I will further discuss goals of care tomorrow at 1100 when patient and , Melvin. Hospice care was discussed with them in the past and they were amenable when the time came. Thank you for this consult. I will follow as needed. Total time spent 50 minutes. Greater than 50% of time with the patient was spent on counseling and coordinating care.
[2018-01-24] MEDS: SODIUM CHLORIDE 0.9% 1000ML 1,000 ML IV SCH (17:03)
[2018-01-24 20:50] LABS: CALCIUM 9.2 mg/dl (8.5-10.1); CREATININE 0.47 mg/dl (0.60-1.20); POTASSIUM 2.9 mmol/L (3.5-5.1)
[2018-01-24] MEDS: AMITRIPTYLINE HCL 25 MG TAB PO SCH (21:12)
[2018-01-25] VITALS (8 sets, daily range): BP systolic 125–169; BP diastolic 6–90; PULSE 96–135; TEMP 36.4–36.9; O2SAT 94–98
[2018-01-25] MEDS: CEFEPIME IV 2,000 MG in SYRINGE 7.5 ML IV SCH ×4 (00:22→23:33)
[2018-01-25] MEDS: POTASSIUM CHLR 10 MEQ / WTR 10 MEQ in PREMIXED WATER 100 ML IV SCH (00:23)
[2018-01-25 06:54] LABS: ALBUMIN 2.2 gm/dl (3.4-5.0); CALCIUM 9.3 mg/dl (8.5-10.1); CREATININE 0.28 mg/dl (0.60-1.20); PHOSPHORUS 1.1 mg/dl (2.5-4.9); POTASSIUM 3.9 mmol/L (3.5-5.1); TOTAL PROTEIN 6.1 gm/dl (6.4-8.2)
[2018-01-25] MEDS: ALBUT/IPRATROP 3MG/0.5MG NEB 3 ML VIAL INH SCH (07:28)
[2018-01-25 08:09] LABS: GLUCOSE 82 mg/dl (70-99)
[2018-01-25 08:13] LABS: CKMB 1.2 ng/ml (0.5-3.6)
[2018-01-25] MEDS: LACTOBACILLUS ACIDOPHILUS 1 GM PACK PO SCH ×3 (08:21→16:57)
[2018-01-25] MEDS: GABAPENTIN 300 MG CAP PO SCH ×3 (08:26→22:23)
[2018-01-25] MEDS: PANTOprazole SOD 40 MG TAB PO SCH (08:26)
[2018-01-25] MEDS: TOPIRAMATE 25 MG TAB PO SCH ×2 (08:27→22:23)
[2018-01-25] MEDS: HEPARIN SOD 5000 UNIT/0.5 ML CARP SQ SCH ×2 (08:34→22:24)
[2018-01-25] MEDS: BOOST VANILLA PO SCH (08:35)
--- NOTE | 2018-01-25 08:59 | Gastroenterology Progress Note ---
Progress Note Date of Service: Jan 25, 2018 Subjective Pt evaluation today including: conversation w/ patient, physical exam, chart review, lab review Pt was seen and evaluated, chart reviewed. Admitted yesterday from [facility], weakness, hypoexemia. On arrival LFTs significant elevated. Started on NAC w/ improvement of LFTs. This AM on exam she has vague complaints, but overall feels well. Tolerated breakfast, has some mild epigastric abdominal pain, no nausea or vomiting. Moving her bowels. No black or bloody stools. T Bili 0.6 --> 0.7 AST 6038 --> 483 ALT 2482 --> 1005 Alk Phos 469 --> 348 CT liver protocol 01/23/18: Mild fatty liver, left hepatic lobe cyst. Slight prominence of the spleen. Postoperative changes to the stomach. Mild nonobstructive bowel ileus.1. Left basilar pleural effusion with left basilar consolidative change. 2. Multifocal right basilar parenchymal nodular/ infiltrative changes.3. Nonobstructing calcifications left kidney with a stable left renal cyst.4. Extensive postoperative changes and stabilization procedure the thoracolumbar spine.5. Increased fecal load within the transverse and a sending colonic regions.6. 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 Gallbladder US 01/23/18: 1. Mild dilatation of the common bile duct (post cholecystectomy) which is unchanged since ultrasoundof June 18, 2017 and likely related to previous cholecystectomy.2. 6.4 cm left renal cyst. Liver doppler US 01/23/18: Negative study with all major venous structures patent and antegrade in terms of flow. Review of Systems Constitutional: No fever, No chills Respiratory: No cough, No shortness of breath Cardiac: No chest pain, No edema Abdomen: + pain (epigastric after eating), No nausea, No vomiting, No diarrhea , No constipation, No GI bleeding, No dysphagia, No odynophagia Medications Current Inpatient Medications Medications (Trade) Dose Ordered Sig/Melvin Route Start Time Stop Time Status Last Admin Dose Admin Gabapentin (Neurontin Cap) 300 mg TID PO 01/23/18 21:00 02/22/18 20:59 01/25/18 08:26 300 MG Pantoprazole Sodium (Protonix Tab) 40 mg DAILY PO 01/24/18 09:00 4/13/18 08:59 01/25/18 08:26 40 MG Prednisone (PredniSONE TAB) 10 mg QAM PO 01/24/18 09:00 02/23/18 08:59 Future hold 01/25/18 08:27 10 MG Topiramate (Topamax Tab) 25 mg BID PO 01/23/18 21:00 02/22/18 20:59 01/25/18 08:27 25 MG Al Hydrox/Mg Hydrox/Simethicone (Maalox Max Susp) 15 ml Q4H PRN PO 01/23/18 19:45 02/22/18 19:44 Magnesium Hydroxide (Milk Of Magnesia Susp) 30 ml Q12H PRN PO 01/23/18 19:45 02/22/18 19:44 Ondansetron HCl (Zofran Inj) 4 mg Q6H PRN IV 01/23/18 19:45 02/22/18 19:44 Ioversol (Optiray 320) 111 ml UD PRN IV 01/23/18 20:15 01/27/18 20:14 Cefepime HCl 2000 mg/Syringe 20 ml @ 5 mls/min Q8H IV 01/24/18 00:00 02/03/18 00:00 01/25/18 08:35 5 MLS/MIN Lactobacillus Acidophilus (Lactinex Granules Pack) 1 gm TIDM PO 01/24/18 07:15 02/23/18 07:59 01/25/18 08:21 1 GM Heparin Sodium (Porcine) (Heparin Sq 5000 Unit/0.5ml) 5,000 unit Q12 SQ 01/24/18 09:00 02/23/18 08:59 01/25/18 08:34 5,000 UNIT Heparin Sodium (Porcine) (Heparin 100 Unit/ml 5ml Flush) 5 ml PRN PRN IV 01/24/18 01:15 02/23/18 01:14 Amitriptyline HCl (Elavil Tab) 25 mg HS PO 01/24/18 21:00 02/23/18 20:59 01/24/18 21:12 25 MG Sumatriptan Succinate (Imitrex Tab) 100 mg DAILY PRN PO 01/24/18 12:00 02/23/18 11:59 01/24/18 13:13 100 MG Polyethylene (Miralax Powder Packet) 17 gm DAILY PO 01/25/18 09:00 02/22/18 19:44 Fluconazole/ Sodium Chloride 100 mg/Prmx 50 ml @ 100 mls/hr Q24H IV 01/24/18 14:30 02/04/18 08:59 01/24/18 15:04 100 MLS/HR Albuterol/ Ipratropium (Duoneb) 3 ml QIDR INH 01/24/18 16:00 02/23/18 15:59 01/25/18 07:28 3 ML Enteral Nutritional Formula (Boost) 1 can DAILY PO 01/25/18 09:00 02/24/18 08:59 01/25/18 08:35 1 CAN Magnesium Sulfate 1 gm/Prmx 100 ml @ 100 mls/hr NOW ONCE IV 01/25/18 08:45 01/25/18 09:44 UNV Potassium/ Phosphorus/Sodium (Phospha 250 Neutral 155-852-130 Mg) 2 tab QID PO 01/25/18 09:00 02/24/18 08:59 UNV Objective Vital Signs Date Time Temp Pulse Resp B/P (MAP) Pulse Ox O2 Delivery O2 Flow Rate FiO2 01/25/18 07:28 113 16 95 Room Air 01/25/18 07:24 125/71 (89) 01/25/18 04:00 Room Air 01/25/18 03:55 36.9 98 18 145/87 (106) 97 Room Air 01/25/18 00:30 36.4 100 18 141/81 (101) 98 Room Air 01/25/18 00:01 Room Air 01/24/18 20:00 36.5 100 18 127/65 (85) 96 Room Air 01/24/18 20:00 Room Air 01/24/18 18:47 99 16 96 Room Air 01/24/18 16:00 Room Air 01/24/18 15:41 86 18 96 Room Air 01/24/18 15:31 36.3 88 20 167/84 (111) 96 Room Air 01/24/18 12:00 Room Air 01/24/18 12:00 36.7 90 18 129/85 (100) 96 Room Air 01/24/18 12:00 Room Air 01/24/18 12:00 36.6 85 18 129/85 (100) 96 Room Air Physical Exam General Appearance: no apparent distress (elderly appearing female) Eyes: PERRL ENT: hearing grossly normal Neck: supple, trachea midline Respiratory/Chest: lungs clear, normal breath sounds Cardiovascular: no gallop, no JVD, + systolic murmur Abdomen: normal bowel sounds, non tender, soft, no organomegaly Neurologic/Psych: alert Skin: normal color, no jaundice Laboratory Results Last 24 Hours Test 01/24/18 09:09 01/24/18 11:57 01/24/18 20:20 01/25/18 05:42 Lactic Acid Level 1.0 mmol/L Sodium Level 137 mmol/L 138 mmol/L 142 mmol/L Potassium Level 3.0 mmol/L 2.9 mmol/L 3.9 mmol/L Chloride Level 104 mmol/L 107 mmol/L 112 mmol/L Carbon Dioxide Level 23 mmol/L 23 mmol/L 22 mmol/L Anion Gap 10.0 mmol/L 9.0 mmol/L 8.0 mmol/L Blood Urea Nitrogen 15 mg/dl 15 mg/dl 11 mg/dl Creatinine 0.35 mg/dl 0.47 mg/dl 0.28 mg/dl Est Creatinine Clear Calc Drug Dose 95.4 ml/min 71.0 ml/min 127.2 ml/min Estimated GFR () 127.8 116.0 137.5 Estimated GFR (Non- 110.3 100.1 118.7 BUN/Creatinine Ratio 42.6 31.8 41.1 Random Glucose 144 mg/dl 230 mg/dl 64 mg/dl Calcium Level 9.1 mg/dl 9.2 mg/dl 9.3 mg/dl Phosphorus Level 1.1 mg/dl Magnesium Level 1.6 mg/dl Total Bilirubin 0.7 mg/dl Aspartate Amino Transf (AST/SGOT) 483 U/L Alanine Aminotransferase (ALT/SGPT) 1005 U/L Alkaline Phosphatase 348 U/L Total Protein 6.1 gm/dl Albumin 2.2 gm/dl Globulin 3.9 gm/dl Albumin/Globulin Ratio 0.6 Test 01/25/18 07:23 01/25/18 07:35 Creatine Kinase MB Ratio Random Glucose 82 mg/dl Creatine Kinase MB 1.2 ng/ml Troponin I < 0.015 ng/ml Assessment and Plan Patient is a 72 year old female with elevated LFTs, most consistent with shock liver. Tylenol level is negative, infectious hepatitis serology pending. She was on Levaquin for pneumonia recently so DILI is also a differential. Her liver enzymes are improving on NAC. - Continued management of hypotension per ICU - Trend LFTs - NAC through tonight - Review serology - GI to sign off - we will watch LFTs and serology peripherally as LFTs are improving. Please call us with any acute change, questions or concerns. I saw and evaluated the patient this afternoon. She is somewhat confused. Her liver enzymes do seem to be significantly improved. Constellation of findings is most consistent with ischemic hepatitis related to her hypotension prior to admission. Recommendations Continue N-acetylcysteine this evening Continue to trend liver enzymes Please call with any questions or concerns, GI to sign off for the present time
[2018-01-25] MEDS ORDERED: POT PHOSPHATE MONOBASIC W/ SOD TAB PO SCH (09:00)
[2018-01-25] MEDS ORDERED: FLUCONAZOLE / NSS 100 MG in PREMIXED NSS 50 ML IV SCH (09:00)
[2018-01-25] MEDS ORDERED: POLYETHYLENE (MIRALAX) 17 GM PACK PO SCH (09:00)
[2018-01-25] MEDS ORDERED: VANCOMYCIN CONSULT ACTIVE PRN (09:30)
[2018-01-25] MEDS ORDERED: MAGNESIUM SULFATE 1GM / D5W 1 GM in PREMIXED IN D5W 100 ML IV ONE (09:30)
[2018-01-25] MEDS ORDERED: SODIUM PHOSPHATE 3 MMOL/1 ML INFUSION IV STA (09:40)
[2018-01-25] MEDS ORDERED: VANCOMYCIN IV 1,000 MG in SODIUM CHLORIDE 0.9% 250ML 250 ML IV ONE (10:00)
[2018-01-25] MEDS ORDERED: SODIUM PHOSPHATE INJ 30 MMOL in SODIUM CHLORIDE 0.9% 500ML 500 ML IV ONE (10:15)
[2018-01-25] MEDS ORDERED: POLYETHYLENE (MIRALAX) 17 GM PACK PO PRN (10:15)
--- NOTE | 2018-01-25 11:11 | Pharmacy Progress Note ---
Pharmacy Antibiotic Consult Date of Service: Jan 25, 2018. Pharmacy Dosing Scope Pharmacy is consulted to initiate vancomycin IV dosing therapy, order appropriate labs and adjust drug dose/frequency. Subjective The patient is a 72 year old female admitted on Jan 23, 2018 at 19:56. Objective Height (Feet): 5 Height (Inches): 4.00 Weight (Kilograms): 43.100 Lab Results (24hrs): Test 01/24/18 20:20 01/25/18 05:42 01/25/18 07:23 01/25/18 07:35 Sodium Level 138 mmol/L (136-145) 142 mmol/L (136-145) Potassium Level 2.9 mmol/L (3.5-5.1) 3.9 mmol/L (3.5-5.1) Chloride Level 107 mmol/L (98-107) 112 mmol/L (98-107) Carbon Dioxide Level 23 mmol/L (21-32) 22 mmol/L (21-32) Anion Gap 9.0 mmol/L (3-11) 8.0 mmol/L (3-11) Blood Urea Nitrogen 15 mg/dl (7-18) 11 mg/dl (7-18) Creatinine 0.47 mg/dl (0.60-1.20) 0.28 mg/dl (0.60-1.20) Est Creatinine Clear Calc Drug Dose 71.0 ml/min 127.2 ml/min Estimated GFR () 116.0 137.5 Estimated GFR (Non- 100.1 118.7 BUN/Creatinine Ratio 31.8 (10-20) 41.1 (10-20) Calcium Level 9.2 mg/dl (8.5-10.1) 9.3 mg/dl (8.5-10.1) Random Glucose 64 mg/dl (70-99) 82 mg/dl (70-99) Phosphorus Level 1.1 mg/dl (2.5-4.9) Magnesium Level 1.6 mg/dl (1.8-2.4) Total Bilirubin 0.7 mg/dl (0.2-1) Aspartate Amino Transf (AST/SGOT) 483 U/L (15-37) Alanine Aminotransferase (ALT/SGPT) 1005 U/L (12-78) Alkaline Phosphatase 348 U/L (45-117) Total Protein 6.1 gm/dl (6.4-8.2) Albumin 2.2 gm/dl (3.4-5.0) Globulin 3.9 gm/dl (2.5-4.0) Albumin/Globulin Ratio 0.6 (0.9-2) Creatine Kinase MB Ratio (0-3.0) (0-3.0) Creatine Kinase MB 1.2 ng/ml (0.5-3.6) Troponin I < 0.015 ng/ml (0-0.045) Micro Results: Deep wound: Staph aureus Assessment & Plan Patient growing staph aureus in pressure ulcer wound. Past culture indicated presence of MSSA, but susceptibilities not available yet for current culture. Patient's scr/CrCl is likely overestimating function given age, low body weight , and lack of mobility. However, past vancomycin data (2012) did indicated more aggressive dosing was needed to achieve goal trough. I have considered both of these factors in maintenance dosing. I will also get an earlier trough level to generally assess accuracy. Loading dose: 1000 mg IV X 1 dose @ 1000 then: Maintenance dose 500 mg IV every 12 hours. Goal trough level estimate: between 10 - 15 mcg/mL. Trough or random level has been ordered for: @9290. Pharmacy will continue to follow and will adjust dose/frequency as necessary. Thank you
--- NOTE | 2018-01-25 11:29 | Palliative Care Progress Note ---
Palliative Care Progress Note Date of Service Jan 25, 2018. Subjective Pt evaluation today including: conversation w/ patient, conversation w/ family , physical exam, chart review, conversation w/ aerodynamic consultant, review of inpatient medication list Pain: Pain in sacrum when moving PO Intake: tolerating diet Voiding: hill catheter in place Patient is more confused today. Electrolytes are off today. Met with patient and Melvin. Discussed goals of care. See below. Review of Systems Constitutional: + weakness (at baseline) ENT: No trouble swallowing Respiratory: No cough, No shortness of breath Cardiac: No chest pain, No edema Abdomen: No pain, No nausea, No vomiting Female : No problem reported Psychiatric: No anxiety Objective Vital Signs Date Time Temp Pulse Resp B/P (MAP) Pulse Ox O2 Delivery O2 Flow Rate FiO2 01/25/18 08:00 Room Air 01/25/18 07:28 113 16 95 Room Air 01/25/18 07:24 36.9 135 20 125/71 (89) 97 Room Air 01/25/18 04:00 Room Air 01/25/18 03:55 36.9 98 18 145/87 (106) 97 Room Air 01/25/18 00:30 36.4 100 18 141/81 (101) 98 Room Air 01/25/18 00:01 Room Air 01/24/18 20:00 36.5 100 18 127/65 (85) 96 Room Air 01/24/18 20:00 Room Air 01/24/18 18:47 99 16 96 Room Air 01/24/18 16:00 Room Air 01/24/18 15:41 86 18 96 Room Air 01/24/18 15:31 36.3 88 20 167/84 (111) 96 Room Air 01/24/18 12:00 Room Air 01/24/18 12:00 36.7 90 18 129/85 (100) 96 Room Air 01/24/18 12:00 Room Air 01/24/18 12:00 36.6 85 18 129/85 (100) 96 Room Air Physical Exam General Appearance: no apparent distress, + cachetic, + thin, + pertinent finding (frail) ENT: hearing grossly normal Neck: supple, no JVD Respiratory/Chest: lungs clear, no respiratory distress, no accessory muscle use, + decreased breath sounds Cardiovascular: no edema, + tachycardia, + normal peripheral pulses Abdomen: normal bowel sounds, non tender, soft Neurologic/Psychiatric: alert, + disoriented Skin: + pertinent finding (large stage 4 sacral decubitus) Laboratory Results Last 24 Hours Test 01/24/18 11:57 01/24/18 20:20 01/25/18 05:42 01/25/18 07:23 Sodium Level 137 mmol/L 138 mmol/L 142 mmol/L Potassium Level 3.0 mmol/L 2.9 mmol/L 3.9 mmol/L Chloride Level 104 mmol/L 107 mmol/L 112 mmol/L Carbon Dioxide Level 23 mmol/L 23 mmol/L 22 mmol/L Anion Gap 10.0 mmol/L 9.0 mmol/L 8.0 mmol/L Blood Urea Nitrogen 15 mg/dl 15 mg/dl 11 mg/dl Creatinine 0.35 mg/dl 0.47 mg/dl 0.28 mg/dl Est Creatinine Clear Calc Drug Dose 95.4 ml/min 71.0 ml/min 127.2 ml/min Estimated GFR () 127.8 116.0 137.5 Estimated GFR (Non- 110.3 100.1 118.7 BUN/Creatinine Ratio 42.6 31.8 41.1 Random Glucose 144 mg/dl 230 mg/dl 64 mg/dl Calcium Level 9.1 mg/dl 9.2 mg/dl 9.3 mg/dl Phosphorus Level 1.1 mg/dl Magnesium Level 1.6 mg/dl Total Bilirubin 0.7 mg/dl Aspartate Amino Transf (AST/SGOT) 483 U/L Alanine Aminotransferase (ALT/SGPT) 1005 U/L Alkaline Phosphatase 348 U/L Total Protein 6.1 gm/dl Albumin 2.2 gm/dl Globulin 3.9 gm/dl Albumin/Globulin Ratio 0.6 Creatine Kinase MB Ratio Test 01/25/18 07:35 Random Glucose 82 mg/dl Creatine Kinase MB 1.2 ng/ml Creatine Kinase MB Ratio Troponin I < 0.015 ng/ml Assessment and Plan Problem list: Weakness 2/2 advanced MS Large sacral decubitus ulcer Pneumonia UTI Shock liver Goals of care Palliative care recs: discussed with patient (limited due to confusion/ disorientation today), Melvin, and Tanisha Thomas PA-C. -Patient is DNR per her wishes. This was discussed several times and also is reflected on patient's POLST form that was completed in August 2017. -Discussed goals of care at bedside with patient and her , Melvin. Patient is more confused, so her involvement in conversation was limited. Melvin stated that the goal is still more for comfort and quality of life. They want to avoid aggressive/invasive treatments. We discussed that if patient should decline or take a turn for the worst, he does NOT want any escalation in care and would likely transition to [employer] at that time. For now, is okay with continuing current medical management. -Patient does want wound vac placed. -Recommend ordering something for pain- Roxanol 5mg PO/SL Q3h PRN pain or SOB. Would give dose prior to wound vac placement. Thank you again for this consult. I will follow as needed. Total time spent 35 minutes with >50% of time spent with patient and family discussing goals of care and plan of care. Palliative Performance Scale: 30 % Continued [facility] stay due to: multiple IV medications needed Discharge planning: intermediate facility
[2018-01-25] MEDS ORDERED: OXYCODONE HCL IR 5 MG TAB (IMMEDIATE RELEASE) PO PRN (11:30)
--- NOTE | 2018-01-25 11:41 | Hospitalist Progress Note ---
Hospitalist Progress Note Date of Service Jan 25, 2018. Subjective Pt evaluation today including: conversation w/ patient, physical exam, lab review, review of studies, conversation w/ ergonomics consultant, review of inpatient medication list Voiding: hill catheter in place Patient resting in bed. Alert but agitated/confused this AM. Thinks today is Monday and month is December. Can state name and 's name. States she is feeling unwell this AM. +palpitations. Tachycardia after DuoNeb treatment- discontinued treatments. +sacral pain. Wound care to try and place wound vac again today- Vika added for pain management PRN. Limited ROS due to confusion. Per RN, HR WNL until received DuoNeb this AM. Very confused compared to yesterday. Discussed care with palliative care, Latisha. She discussed goals of care and worsening conditions today. is very understanding. OK with current plan of care but does NOT want escaladed care. DNR. Wants comfortable. Medications Current Inpatient Medications Medications (Trade) Dose Ordered Sig/Melvin Route Start Time Stop Time Status Last Admin Dose Admin Gabapentin (Neurontin Cap) 300 mg TID PO 01/23/18 21:00 02/22/18 20:59 01/25/18 08:26 300 MG Pantoprazole Sodium (Protonix Tab) 40 mg DAILY PO 01/24/18 09:00 02/23/18 08:59 01/25/18 08:26 40 MG Prednisone (PredniSONE TAB) 10 mg QAM PO 01/24/18 09:00 02/23/18 08:59 Future hold 01/25/18 08:27 10 MG Topiramate (Topamax Tab) 25 mg BID PO 01/23/18 21:00 02/22/18 20:59 01/25/18 08:27 25 MG Al Hydrox/Mg Hydrox/Simethicone (Maalox Max Susp) 15 ml Q4H PRN PO 01/23/18 19:45 02/22/18 19:44 Magnesium Hydroxide (Milk Of Magnesia Susp) 30 ml Q12H PRN PO 01/23/18 19:45 02/22/18 19:44 Ondansetron HCl (Zofran Inj) 4 mg Q6H PRN IV 01/23/18 19:45 02/22/18 19:44 Ioversol (Optiray 320) 111 ml UD PRN IV 01/23/18 20:15 01/27/18 20:14 Cefepime HCl 2000 mg/Syringe 20 ml @ 5 mls/min Q8H IV 01/24/18 00:00 02/03/18 00:00 01/25/18 08:35 5 MLS/MIN Lactobacillus Acidophilus (Lactinex Granules Pack) 1 gm TIDM PO 01/24/18 07:15 02/23/18 07:59 01/25/18 08:21 1 GM Heparin Sodium (Porcine) (Heparin Sq 5000 Unit/0.5ml) 5,000 unit Q12 SQ 01/24/18 09:00 02/23/18 08:59 01/25/18 08:34 5,000 UNIT Heparin Sodium (Porcine) (Heparin 100 Unit/ml 5ml Flush) 5 ml PRN PRN IV 01/24/18 01:15 02/23/18 01:14 Amitriptyline HCl (Elavil Tab) 25 mg HS PO 01/24/18 21:00 02/23/18 20:59 01/24/18 21:12 25 MG Sumatriptan Succinate (Imitrex Tab) 100 mg DAILY PRN PO 01/24/18 12:00 02/23/18 11:59 01/24/18 13:13 100 MG Fluconazole/ Sodium Chloride 100 mg/Prmx 50 ml @ 100 mls/hr Q24H IV 01/24/18 14:30 02/04/18 08:59 01/24/18 15:04 100 MLS/HR Enteral Nutritional Formula (Boost) 1 can DAILY PO 01/25/18 09:00 02/24/18 08:59 01/25/18 08:35 1 CAN Vancomycin HCl 1000 mg/Sodium Chloride 270 ml @ 125 mls/hr ONE ONCE IV 01/25/18 10:00 01/25/18 12:09 01/25/18 10:09 125 MLS/HR Miscellaneous Information (Consult) 1 ea UD PRN N/A 01/25/18 09:30 02/24/18 09:29 Sodium Phosphate 30 mmol/Sodium Chloride 510 ml @ 100 mls/hr TODAY@1015 ONCE IV 01/25/18 10:15 01/25/18 15:20 01/25/18 10:09 100 MLS/HR Polyethylene (Miralax Powder Packet) 17 gm DAILY PRN PO 01/25/18 10:15 02/22/18 19:44 Vancomycin HCl 500 mg/Sodium Chloride 260 ml @ 125 mls/hr Q12H IV 01/25/18 22:00 02/04/18 21:59 Objective Vital Signs Date Time Temp Pulse Resp B/P (MAP) Pulse Ox O2 Delivery O2 Flow Rate FiO2 01/25/18 08:00 Room Air 01/25/18 07:28 113 16 95 Room Air 01/25/18 07:24 36.9 135 20 125/71 (89) 97 Room Air 01/25/18 04:00 Room Air 01/25/18 03:55 36.9 98 18 145/87 (106) 97 Room Air 01/25/18 00:30 36.4 100 18 141/81 (101) 98 Room Air 01/25/18 00:01 Room Air 01/24/18 20:00 36.5 100 18 127/65 (85) 96 Room Air 01/24/18 20:00 Room Air 01/24/18 18:47 99 16 96 Room Air 01/24/18 16:00 Room Air 01/24/18 15:41 86 18 96 Room Air 01/24/18 15:31 36.3 88 20 167/84 (111) 96 Room Air 01/24/18 12:00 Room Air 01/24/18 12:00 36.7 90 18 129/85 (100) 96 Room Air 01/24/18 12:00 Room Air 01/24/18 12:00 36.6 85 18 129/85 (100) 96 Room Air Physical Exam General Appearance: no apparent distress, + pertinent finding (O2 NC, flushed cheeks ) Eyes: normal inspection, PERRL ENT: hearing grossly normal Neck: supple Respiratory/Chest: lungs clear, no respiratory distress, no accessory muscle use, + decreased breath sounds (throughout ) Cardiovascular: + tachycardia (regular rhythm ) Abdomen: normal bowel sounds, non tender, soft Extremities: no pedal edema, no calf tenderness Neurologic/Psychiatric: alert, + disoriented (oriented to person ), + pertinent finding (agitated/confused ) Skin: normal color, warm/dry, no rash Laboratory Results Last 24 Hours Test 01/24/18 11:57 01/24/18 20:20 01/25/18 05:42 01/25/18 07:23 Sodium Level 137 mmol/L 138 mmol/L 142 mmol/L Potassium Level 3.0 mmol/L 2.9 mmol/L 3.9 mmol/L Chloride Level 104 mmol/L 107 mmol/L 112 mmol/L Carbon Dioxide Level 23 mmol/L 23 mmol/L 22 mmol/L Anion Gap 10.0 mmol/L 9.0 mmol/L 8.0 mmol/L Blood Urea Nitrogen 15 mg/dl 15 mg/dl 11 mg/dl Creatinine 0.35 mg/dl 0.47 mg/dl 0.28 mg/dl Est Creatinine Clear Calc Drug Dose 95.4 ml/min 71.0 ml/min 127.2 ml/min Estimated GFR () 127.8 116.0 137.5 Estimated GFR (Non- 110.3 100.1 118.7 BUN/Creatinine Ratio 42.6 31.8 41.1 Random Glucose 144 mg/dl 230 mg/dl 64 mg/dl Calcium Level 9.1 mg/dl 9.2 mg/dl 9.3 mg/dl Phosphorus Level 1.1 mg/dl Magnesium Level 1.6 mg/dl Total Bilirubin 0.7 mg/dl Aspartate Amino Transf (AST/SGOT) 483 U/L Alanine Aminotransferase (ALT/SGPT) 1005 U/L Alkaline Phosphatase 348 U/L Total Protein 6.1 gm/dl Albumin 2.2 gm/dl Globulin 3.9 gm/dl Albumin/Globulin Ratio 0.6 Creatine Kinase MB Ratio Test 01/25/18 07:35 Random Glucose 82 mg/dl Creatine Kinase MB 1.2 ng/ml Creatine Kinase MB Ratio Troponin I < 0.015 ng/ml Assessment and Plan 72-year-old female with advanced MS,. Wheelchair-bound lives in a nursing facility. Recently diagnosed with left lower lobe pneumonia about 3 weeks ago. At that time her liver enzymes were started to go up. [facility] to have low oxygen saturation on room air about 85%, also was found to have persistent fever she was sent to the ED for further evaluation and management. Chest x-ray showed persistent left lower lobe density which could be from her previous pneumonia or could be a new recurrence. In the setting of her hypoxemia. On the other hand her liver enzymes were noted to be extremely elevated and she was found to have a UTI Acute respiratory failure w/ hypoxia secondary to PNA- IMPROVING: - Admitted to tele for cardiac monitoring- no acute events - O2 protocol - IV Vancomycin + Cefepime - Probiotics - DuoNebs QID and PRN for SOB/wheezing- discontinued due to tachycardia - Leukocytosis- WORSENING- ?secondary to Hydrocortisone vs infection- continue to monitor - IVF @ 50 ml/hr- eating/drinking OK, BPs stable, kidney function normal- will d /c - Speech therapy consulted, appreciate recommendations- regular diet, no new recommendations - BCx- NGTD UTI POA w/ indwelling [place]: UCx w/ ford albicans- treat w/ Diflucan 100 mg daily x7 day- last day 01/30 Elevated LFTs, secondary to shock liver- IMPROVING: - GI consulted, appreciate recommendations- continue to follow LFTs, bilirubin may rise for the next few days - Abdominal CT/liver US reviewed - Infectious serologies pending - Tylenol level 3- treated w/ IV Acetylcysteine prophylactically Palliative care consultation- as per Latisha's documentation Stage IV pressure sacral ulcer: - Wound care consulted, appreciate recommendations - Wound Cx w/ staph aureus- sensitive pending, IV Vancomycin - Roxicodone q6hrs PRN for pain management- limit use due to confusion Hypokalemia- RESOLVED: Replace w/ KCL supplement, follow PRP and replace PRN Hypomagnesemia: Replaced w/ IV Mag supplement, follow mag level and replace PRN Hypophosphatemia: Replace w/ IV Phosphate supplement, follow phosphorus level and replace PRN Fecal retention on abdominal CT- RESOLVED: MiraLAX daily PRN, Milk of Mag PRN Depression w/ anxiety, advanced MS/functional quadriplegia wheelchair-bound: - Continue Elavil 25 mg HS, Gabapentin 300 mg TID, Topamax 25 mg BID - IV Hydrocortisone TID for stress dosing due to hypotension at admission- improving- will resume chronic Prednisone today and d/c Hydrocortisone Severe protein calorie malnutrition: Nutrition consulted- snacks TID and Boost daily GI prophylaxis, GERD: Protonix daily DVT prophylaxis: Heparin SQ BID Code status: LEVEL V, DNR Dispo: From [facility]- CM consulted PATIENT/ DOES NOT WANT ESCALADED CARE IF NEEDED.
[2018-01-25] MEDS ORDERED: OXYCODONE HCL IR 5 MG TAB (IMMEDIATE RELEASE) ONE (12:05)
[2018-01-25] MEDS: FLUCONAZOLE / NSS 100 MG in PREMIXED NSS 50 ML IV SCH (14:53)
[2018-01-25 18:26] LABS: CREATININE 0.35 mg/dl (0.60-1.20); POTASSIUM 3.6 mmol/L (3.5-5.1)
[2018-01-25 18:55] LABS: PHOSPHORUS 4.2 mg/dl (2.5-4.9)
[2018-01-25] MEDS: VANCOMYCIN IV 500 MG in SODIUM CHLORIDE 0.9% 250ML 250 ML IV SCH (22:23)
[2018-01-25] MEDS: AMITRIPTYLINE HCL 25 MG TAB PO SCH (22:23)
[2018-01-26 04:00] VITALS: BP 136/87; PULSE 79; TEMP 37; O2SAT 96
[2018-01-26 05:52] LABS: HEMATOCRIT 32.4 % (37-47); HEMOGLOBIN 10.5 g/dL (12.0-16.0); MEAN CELL VOLUME 89.3 fL (80-100); MEAN CORPUSCULAR HEMOGLOBIN 28.9 pg (25-34); MEAN CORPUSCULAR HGB CONC 32.4 g/dl (32-36); MEAN PLATELET VOLUME 11.1 fL (7.4-10.4); PLATELET COUNT 260 K/uL (130-400); RED CELL DISTRIBUTION WIDTH CV 16.4 % (11.5-14.5); RED CELL DISTRIBUTION WIDTH SD 53.8 fL (36.4-46.3); WHITE BLOOD COUNT 8.97 K/uL (4.8-10.8)
[2018-01-26 06:30] LABS: ALBUMIN 2.2 gm/dl (3.4-5.0); ALKALINE PHOSPHATASE 342 U/L (45-117); ALT/SGPT 676 U/L (12-78); AST/SGOT 133 U/L (15-37); BLOOD UREA NITROGEN 8 mg/dl (7-18); CALCIUM 9.3 mg/dl (8.5-10.1); CARBON DIOXIDE 24 mmol/L (21-32); GLUCOSE 81 mg/dl (70-99); PHOSPHORUS 1.6 mg/dl (2.5-4.9); POTASSIUM 2.7 mmol/L (3.5-5.1); SODIUM 140 mmol/L (136-145); TOTAL PROTEIN 6.4 gm/dl (6.4-8.2)
[2018-01-26 08:16] VITALS: BP 139/81; PULSE 87; TEMP 36.6; O2SAT 97
[2018-01-26] MEDS: GABAPENTIN 300 MG CAP PO SCH ×3 (08:21→20:47)
[2018-01-26] MEDS: PANTOprazole SOD 40 MG TAB PO SCH (08:21)
[2018-01-26] MEDS: CEFEPIME IV 2,000 MG in SYRINGE 7.5 ML IV SCH ×2 (08:22→16:14)
[2018-01-26] MEDS: LACTOBACILLUS ACIDOPHILUS 1 GM PACK PO SCH ×3 (08:22→16:14)
[2018-01-26] MEDS: TOPIRAMATE 25 MG TAB PO SCH ×2 (08:23→20:47)
[2018-01-26] MEDS: BOOST VANILLA PO SCH (08:26)
[2018-01-26] MEDS: HEPARIN SOD 5000 UNIT/0.5 ML CARP SQ SCH ×2 (08:26→20:48)
[2018-01-26] MEDS ORDERED: POTASSIUM CHLR 20 MEQ / WTR 40 MEQ in PREMIXED WATER 100 ML IV STA (08:58)
[2018-01-26] MEDS ORDERED: POTASSIUM PHOS 3 MMOL/1 ML INFUSION IV STA (08:58)
[2018-01-26] MEDS ORDERED: POTASSIUM PHOSPHATE INJ 30 MMOL in SODIUM CHLORIDE 0.9% 500ML 500 ML IV ONE (09:15)
[2018-01-26] MEDS: VANCOMYCIN IV 500 MG in SODIUM CHLORIDE 0.9% 250ML 250 ML IV SCH (09:33)
[2018-01-26] MEDS: POTASSIUM CHLR 10MEQ / WTR IV SCH ×8 (09:34→17:17)
[2018-01-26] MEDS: MAGNESIUM SULFATE 1GM / D5W 1 GM in PREMIXED IN D5W 100 ML IV SCH ×2 (09:34→10:25)
[2018-01-26] MEDS: MAGNESIUM OXIDE 400 MG TAB PO SCH ×2 (09:34→20:47)
[2018-01-26 12:41] VITALS: BP 127/67; PULSE 88; TEMP 36.9; O2SAT 98
[2018-01-26] MEDS: FLUCONAZOLE / NSS 100 MG in PREMIXED NSS 50 ML IV SCH (13:53)
[2018-01-26 15:30] VITALS: BP 147/83; PULSE 82; TEMP 36.5; O2SAT 99
--- NOTE | 2018-01-26 16:36 | Progress Note ---
Subjective Date of Service: Jan 26, 2018. Subjective Pt evaluation today including: conversation w/ patient, physical exam, chart review, lab review, review of studies, conversation w/ apartment leasing consultant, review of inpatient medication list Pleasant, smiling, conversational, eating voiding fair, no complaint, Problem List Medical Problems: (1) Abnormal LFTs (liver function tests) Status: Acute (2) Altered mental status Status: Acute (3) Altered mental status Status: Acute (4) Cellulitis Status: Acute (5) Cystitis Status: Acute (6) Dehydration Status: Acute (7) Dehydration Status: Acute (8) Diarrhea Status: Acute (9) Exacerbation of multiple sclerosis Status: Acute (10) Fall at home Status: Acute (11) Femur fracture Status: Acute (12) Fever Status: Acute (13) Fracture of right hip Status: Acute (14) Headache Status: Acute (15) Hypokalemia Status: Acute (16) Intractable pain Status: Acute (17) Intractable vomiting Status: Acute (18) Migraine Status: Acute (19) Migraine Status: Acute (20) Migraine Status: Acute (21) Migraine Status: Acute (22) Migraine Status: Acute (23) Migraine Status: Acute (24) Migraine Status: Acute (25) Migraine Status: Acute (26) Migraine Status: Acute (27) Migraine Status: Acute (28) Migraine headache Status: Acute (29) Pelvis fracture, right Status: Acute (30) Pneumonia Status: Acute (31) Pressure ulcer of right buttock Status: Acute (32) Proctocolitis Status: Acute (33) Sacral ulcer Status: Acute (34) Status post closed fracture of right hip Status: Acute (35) Tachycardia Status: Acute (36) Tachycardia Status: Acute (37) Tachycardia Status: Acute (38) UTI (urinary tract infection) Status: Acute (39) Weakness Status: Acute (40) Weakness Status: Acute (41) Weakness Status: Acute Review of Systems Constitutional: + weakness, + fatigue, No see HPI, No fever, No chills, No sweats, No weight loss, No problem reported Eyes: No see HPI, No worsening of vision, No eye pain, No redness, No discharge , No diplopia, No problem reported ENT: No see HPI, No hearing loss, No unusual epistaxis, No nasal symptoms, No sore throat, No tinnitus, No dental problems, No trouble swallowing, No problem reported Respiratory: + see HPI, + cough, + sputum, + wheezing, + shortness of breath, + dyspnea on exertion, + dyspnea at rest, + hemoptysis, + problem reported Cardiac: + edema, No see HPI, No chest pain, No orthopnea, No PND, No claudication, No palpitations, No problem reported Abdomen: No see HPI, No pain, No nausea, No vomiting, No diarrhea, No constipation, No GI bleeding, No problem reported Musculoskeletal: + joint pain, No see HPI, No muscle pain, No swelling, No calf pain, No problem reported Female : No see HPI, No dysuria, No urinary frequency, No hematuria, No incontinence, No abnormal vaginal bleeding, No vaginal discharge, No problem reported Heme: No see HPI, No abnormal bleeding/bruising, No clotting problems, No swollen lymph nodes, No night sweats, No problem reported Endo: No see HPI, No fatigue, No excessive thirst, No excessive urination, No problem reported Skin: + problem reported (Has open wound in sacral area) Objective Vital Signs Date Time Temp Pulse Resp B/P (MAP) Pulse Ox O2 Delivery O2 Flow Rate FiO2 01/26/18 12:41 36.9 88 16 127/67 (87) 98 Room Air 01/26/18 12:00 Room Air 01/26/18 08:16 36.6 87 18 139/81 (100) 97 Room Air 01/26/18 08:00 Room Air 01/26/18 04:00 Room Air 01/26/18 04:00 37.0 79 20 136/87 (103) 96 Room Air 01/26/18 00:01 Room Air 01/25/18 23:55 36.4 103 16 169/89 (115) 94 Room Air 01/25/18 20:00 Room Air 01/25/18 19:35 36.4 96 22 159/80 (106) 98 Room Air Physical Exam General Appearance: WD/WN, no apparent distress, + thin Eyes: normal inspection, PERRL, EOMI, sclerae normal ENT: normal ENT inspection, hearing grossly normal, pharynx normal Neck: supple, no adenopathy, thyroid normal, no JVD, no carotid bruits, trachea midline Respiratory/Chest: chest non-tender, normal breath sounds, no respiratory distress, no accessory muscle use, + decreased breath sounds Cardiovascular: regular rate, rhythm, no gallop, no JVD, no murmur, + pertinent finding (2+ edema) Abdomen: normal bowel sounds, non tender, soft, no organomegaly, no pulsatile mass Extremities: normal range of motion, non-tender, normal inspection, no pedal edema, no calf tenderness, normal capillary refill, pelvis stable, + swelling (2 + edema) Neurologic/Psychiatric: normal mood/affect, oriented x 3, + pertinent finding ( No facial droop bilateral lower extremities generalized weakness is not new) Skin: normal color, warm/dry, no rash, + pertinent finding (Sacral area stage IV decubitus is in dressing) Lymphatic: no adenopathy Laboratory Results Last 24 Hours Test 01/25/18 17:56 01/26/18 05:27 Sodium Level 141 mmol/L 140 mmol/L Potassium Level 3.6 mmol/L 2.7 mmol/L Chloride Level 110 mmol/L 108 mmol/L Carbon Dioxide Level 23 mmol/L 24 mmol/L Anion Gap 8.0 mmol/L 8.0 mmol/L Blood Urea Nitrogen 10 mg/dl 8 mg/dl Creatinine 0.35 mg/dl 0.20 mg/dl Est Creatinine Clear Calc Drug Dose 101.8 ml/min 178.1 ml/min Estimated GFR () 127.8 > 150.0 Estimated GFR (Non- 110.3 132.6 BUN/Creatinine Ratio 29.6 40.1 Random Glucose 158 mg/dl 81 mg/dl Calcium Level 9.0 mg/dl 9.3 mg/dl Phosphorus Level 4.2 mg/dl 1.6 mg/dl Magnesium Level 1.6 mg/dl 1.3 mg/dl White Blood Count 8.97 K/uL Red Blood Count 3.63 M/uL Hemoglobin 10.5 g/dL Hematocrit 32.4 % Mean Corpuscular Volume 89.3 fL Mean Corpuscular Hemoglobin 28.9 pg Mean Corpuscular Hemoglobin Concent 32.4 g/dl RDW Standard Deviation 53.8 fL RDW Coefficient of Variation 16.4 % Platelet Count 260 K/uL Mean Platelet Volume 11.1 fL Prothrombin Time 10.1 SECONDS Prothromb Time International Ratio 1.0 Total Bilirubin 0.9 mg/dl Direct Bilirubin 0.4 mg/dl Aspartate Amino Transf (AST/SGOT) 133 U/L Alanine Aminotransferase (ALT/SGPT) 676 U/L Alkaline Phosphatase 342 U/L Total Protein 6.4 gm/dl Albumin 2.2 gm/dl Globulin 4.2 gm/dl Albumin/Globulin Ratio 0.5 Assessment and Plan 72-year-old female admitted on January 24, 2018 because of acute on chronic respiratory failure possible sepsis, pneumonia UTI with persistent fever, possible shock liver Past medical history with advanced MS, Stage IV pressure sacral ulcer:, Wheelchair-bound lives in a nursing facility. Recent left lower lobe pneumonia about 3 weeks ago. In Eemergency room, chest x-ray showed persistent left lower lobe density which could be from her previous pneumonia or could be a new recurrence. Acute respiratory failure w/ hypoxia secondary UTI POA w/ indwelling [place]: relative stable and improving , patient now in normal air, has stop nebulizer treatment, possible have no pneumonia upon admission Possible liver failure with elevated LFTs, will likely secondary to shock liver : relative stable and continue improving Severe hypokalemia hypophosphatemia hypomag, replaced and follow-up Continue cardiac/vascular sonographer because of significant abnormal electrolytes, Wound culture has 3 bacteria grows, 1 of them is MRSA, before more culture results coming back, I will continue Vancomycin + Cefepime, ford albicans UTI, is treated w/ Diflucan 100 mg daily x7 days, will continue Avoid liver toxic medication, patient obviously has deconditioning, she is do not resuscitation and halfway resident, possible poor prognosis, after agree with , palliative care consultation: no exaggerative treatment UTI due to chronic hill catheter Sacral Pressure ulcer, stage 4, POA, WC on the case Report from palliative care , discussed goals of care at bedside with patient and her , Melvin. Melvin stated that the goal is still more for comfort and quality of life. They want to avoid aggressive/invasive treatments. if patient should decline or take a turn for the worst, he does NOT want any escalation in care and would likely transition to [facility] at that time. Agree to order Roxanol 5mg PO/SL Q3h PRN pain or SOB. Would give dose prior to wound vac placement. Possible message tomorrow and back to halfway soon, Continued [facility] stay due to: multiple IV medications needed Discharge planning: assisted facility
[2018-01-26] MEDS ORDERED: MoRPHine SULFATE 5 MG/0.25 ML UDP PO PRN (16:45)
[2018-01-26 20:00] VITALS: BP 147/83; PULSE 78; TEMP 36.9; O2SAT 96; O2SAT 97
[2018-01-26] MEDS: AMITRIPTYLINE HCL 25 MG TAB PO SCH (20:46)
[2018-01-26] MEDS ORDERED: OXYCODONE HCL IR 5 MG TAB (IMMEDIATE RELEASE) PO PRN (21:15)
[2018-01-26] MEDS ORDERED: VANCOMYCIN TROUGH ONE (21:30)
--- NOTE | 2018-01-26 22:53 | Pharmacy Progress Note ---
Pharmacy Abx Dose Short Note Date of Service Jan 26, 2018. Assessment & Plan Assessment 72 year old female receiving Vancomycin for treatment of SSI Day # 2 of antimicrobial therapy. Plan Vancomycin * Trough level of 9.8 mcg/mL is subtherapeutic. * Change to 750 mg IV every 12 hours * Goal trough level for SSI : ~15 mcg/mL * Trough level ordered for: 01/28/18 @1030 Pharmacy will continue to follow and will adjust dose/frequency as necessary. Thank you.
[2018-01-26] MEDS: VANCOMYCIN IV 750 MG in SODIUM CHLORIDE 0.9% 250ML 250 ML IV SCH (23:07)
[2018-01-26 23:19] VITALS: BP 148/79; PULSE 88; TEMP 36.9; O2SAT 95
[2018-01-27] MEDS: CEFEPIME IV 2,000 MG in SYRINGE 7.5 ML IV SCH ×2 (00:12→09:36)
[2018-01-27 03:20] VITALS: BP 145/83; PULSE 97; TEMP 36.9; O2SAT 94
[2018-01-27 08:33] VITALS: BP 137/85; PULSE 99; TEMP 36.7; O2SAT 96
[2018-01-27 08:44] LABS: ALBUMIN 2.2 gm/dl (3.4-5.0); CALCIUM 9.4 mg/dl (8.5-10.1); CREATININE 0.25 mg/dl (0.60-1.20); PHOSPHORUS 1.8 mg/dl (2.5-4.9); POTASSIUM 3.2 mmol/L (3.5-5.1); TOTAL PROTEIN 6.5 gm/dl (6.4-8.2)
[2018-01-27] MEDS: PANTOprazole SOD 40 MG TAB PO SCH (09:05)
[2018-01-27] MEDS: GABAPENTIN 300 MG CAP PO SCH ×3 (09:05→21:00)
[2018-01-27] MEDS: LACTOBACILLUS ACIDOPHILUS 1 GM PACK PO SCH ×3 (09:05→17:41)
[2018-01-27] MEDS: TOPIRAMATE 25 MG TAB PO SCH ×2 (09:05→21:00)
[2018-01-27] MEDS: MAGNESIUM OXIDE 400 MG TAB PO SCH ×2 (09:05→21:01)
[2018-01-27] MEDS: BOOST VANILLA PO SCH (09:06)
[2018-01-27] MEDS ORDERED: POTASSIUM PHOS 3 MMOL/1 ML INFUSION IV STA (09:12)
[2018-01-27] MEDS ORDERED: POTASSIUM CHLORIDE 10 MEQ TABCR PO STA (09:12)
[2018-01-27] MEDS: HEPARIN SOD 5000 UNIT/0.5 ML CARP SQ SCH ×2 (09:17→21:11)
[2018-01-27] MEDS ORDERED: POTASSIUM CHLR 20 MEQ / WTR 20 MEQ in PREMIXED WATER 100 ML IV ONE (10:00)
[2018-01-27] MEDS ORDERED: POTASSIUM PHOSPHATE INJ 30 MMOL in SODIUM CHLORIDE 0.9% 500ML 500 ML IV ONE (10:15)
[2018-01-27] MEDS: MAGNESIUM SULFATE 1GM / D5W 1 GM in PREMIXED IN D5W 100 ML IV SCH ×2 (11:11→12:00)
[2018-01-27] MEDS: VANCOMYCIN IV 750 MG in SODIUM CHLORIDE 0.9% 250ML 250 ML IV SCH (11:12)
[2018-01-27 12:07] VITALS: BP 131/80; PULSE 98; TEMP 36.6; O2SAT 96
--- NOTE | 2018-01-27 13:12 | Progress Note ---
Subjective Date of Service: Jan 27, 2018. Subjective Pt evaluation today including: conversation w/ patient, conversation w/ family , physical exam, chart review, lab review, review of studies, conversation w/ rewards consultant, review of inpatient medication list Doing the same, reports generalized weakness, however no fever and chills, eating or a small amount, has small bowel movement, mild cough, denies any complaint Problem List Medical Problems: (1) Abnormal LFTs (liver function tests) Status: Acute (2) Altered mental status Status: Acute (3) Altered mental status Status: Acute (4) Cellulitis Status: Acute (5) Cystitis Status: Acute (6) Dehydration Status: Acute (7) Dehydration Status: Acute (8) Diarrhea Status: Acute (9) Exacerbation of multiple sclerosis Status: Acute (10) Fall at home Status: Acute (11) Femur fracture Status: Acute (12) Fever Status: Acute (13) Fracture of right hip Status: Acute (14) Headache Status: Acute (15) Hypokalemia Status: Acute (16) Intractable pain Status: Acute (17) Intractable vomiting Status: Acute (18) Migraine Status: Acute (19) Migraine Status: Acute (20) Migraine Status: Acute (21) Migraine Status: Acute (22) Migraine Status: Acute (23) Migraine Status: Acute (24) Migraine Status: Acute (25) Migraine Status: Acute (26) Migraine Status: Acute (27) Migraine Status: Acute (28) Migraine headache Status: Acute (29) Pelvis fracture, right Status: Acute (30) Pneumonia Status: Acute (31) Pressure ulcer of right buttock Status: Acute (32) Proctocolitis Status: Acute (33) Sacral ulcer Status: Acute (34) Status post closed fracture of right hip Status: Acute (35) Tachycardia Status: Acute (36) Tachycardia Status: Acute (37) Tachycardia Status: Acute (38) UTI (urinary tract infection) Status: Acute (39) Weakness Status: Acute (40) Weakness Status: Acute (41) Weakness Status: Acute Review of Systems Constitutional: + weakness, + fatigue, No see HPI, No fever, No chills, No sweats, No weight loss, No problem reported Eyes: No see HPI, No worsening of vision, No eye pain, No redness, No discharge , No diplopia, No problem reported ENT: No see HPI, No hearing loss, No unusual epistaxis, No nasal symptoms, No sore throat, No tinnitus, No dental problems, No trouble swallowing, No problem reported Respiratory: + cough, No see HPI, No sputum, No wheezing, No shortness of breath, No dyspnea on exertion, No dyspnea at rest, No hemoptysis, No problem reported Cardiac: No see HPI, No chest pain, No orthopnea, No PND, No edema, No claudication, No palpitations, No problem reported Abdomen: No see HPI, No pain, No nausea, No vomiting, No diarrhea, No constipation, No GI bleeding, No problem reported Musculoskeletal: + swelling, No see HPI, No joint pain, No muscle pain, No calf pain, No problem reported Female : No see HPI, No dysuria, No urinary frequency, No hematuria, No incontinence, No abnormal vaginal bleeding, No vaginal discharge, No problem reported Neurologic: + weakness, + balance problems, + problem reported (Has been bedridden because of multiple sclerosis), No see HPI, No memory loss, No paralysis, No numbness/tingling, No vertigo Psychiatric: No see HPI, No depression symptoms, No anhedonism, No anxiety, No insomnia, No substance abuse, No problem reported Heme: No see HPI, No abnormal bleeding/bruising, No clotting problems, No swollen lymph nodes, No night sweats, No problem reported Endo: No see HPI, No fatigue, No excessive thirst, No excessive urination, No problem reported Objective Vital Signs Date Time Temp Pulse Resp B/P (MAP) Pulse Ox O2 Delivery O2 Flow Rate FiO2 01/27/18 12:07 36.6 98 16 131/80 (97) 96 Room Air 01/27/18 12:00 Room Air 01/27/18 08:33 36.7 99 20 137/85 (102) 96 Room Air 01/27/18 08:00 Room Air 01/27/18 04:00 Room Air 01/27/18 03:20 36.9 97 16 145/83 (103) 94 Room Air 01/27/18 00:00 Room Air 01/26/18 23:19 36.9 88 18 148/79 (102) 95 Room Air 01/26/18 20:00 96 Room Air 01/26/18 20:00 36.9 78 20 147/83 (104) 97 Room Air 01/26/18 16:00 Room Air 01/26/18 15:30 36.5 82 18 147/83 (104) 99 Room Air Physical Exam General Appearance: WD/WN, no apparent distress, + cachetic, + thin, + pertinent finding (Frail, chronically ill looking however she is smiling) Eyes: normal inspection, PERRL, EOMI, sclerae normal ENT: normal ENT inspection, hearing grossly normal, pharynx normal Neck: supple, no adenopathy, thyroid normal, no JVD, no carotid bruits, trachea midline Respiratory/Chest: chest non-tender, normal breath sounds, no respiratory distress, no accessory muscle use, + decreased breath sounds Cardiovascular: regular rate, rhythm, no gallop, no JVD, no murmur Abdomen: normal bowel sounds, non tender, soft, no organomegaly, no pulsatile mass Extremities: normal range of motion, non-tender, normal inspection, no pedal edema, no calf tenderness, normal capillary refill, pelvis stable, + swelling (1 -2+ edema) Neurologic/Psychiatric: setter up II-XII nml as tested, alert, normal mood/affect, oriented x 3, + pertinent finding (Bilateral lower extremity weakness and atrophy because of multiple sclerosis, however she moving her toes) Skin: normal color, warm/dry, no rash, + pertinent finding (Patient for decubitus in the sacral area which is not new) Lymphatic: no adenopathy Laboratory Results Last 24 Hours Test 01/26/18 21:28 01/27/18 07:52 Vancomycin Level Trough 9.8 mcg/ml Sodium Level 141 mmol/L Potassium Level 3.2 mmol/L Chloride Level 109 mmol/L Carbon Dioxide Level 26 mmol/L Anion Gap 6.0 mmol/L Blood Urea Nitrogen 9 mg/dl Creatinine 0.25 mg/dl Est Creatinine Clear Calc Drug Dose 125.9 ml/min Estimated GFR () 142.8 Estimated GFR (Non- 123.2 BUN/Creatinine Ratio 36.4 Random Glucose 80 mg/dl Calcium Level 9.4 mg/dl Phosphorus Level 1.8 mg/dl Magnesium Level 1.6 mg/dl Total Bilirubin 0.5 mg/dl Aspartate Amino Transf (AST/SGOT) 53 U/L Alanine Aminotransferase (ALT/SGPT) 450 U/L Alkaline Phosphatase 317 U/L Total Protein 6.5 gm/dl Albumin 2.2 gm/dl Globulin 4.3 gm/dl Albumin/Globulin Ratio 0.5 Assessment and Plan 72-year-old female admitted on January 24, 2018 because of acute on chronic respiratory failure possible sepsis, pneumonia UTI with persistent fever, possible shock liver Past medical history with advanced MS, Stage IV pressure sacral ulcer:, Wheelchair-bound lives in a nursing facility. Recent left lower lobe pneumonia about 3 weeks ago. In Eemergency room, chest x-ray showed persistent left lower lobe density which could be from her previous pneumonia Acute respiratory failure w/ hypoxia secondary UTI POA w/ indwelling Hill: Continue stable and improving , patient now in normal air, has stop nebulizer treatment, possible have no pneumonia upon admission liver failure with significant elevated LFTs, likely secondary to shock liver: continue improving/resolving Wound culture has 3 bacteria grows, 1 of them is MRSA, second 1 is Pseudomonas, so the component is Gabrielle albicans, Has been vancomycin + Cefepime, I switched to oral clindamycin and Cipro per sensitivity gabrielle albicans UTI, UTI due to chronic hill catheter, is treated w/ Diflucan 100 mg daily x7 days, will continue Avoid liver toxic medication, Significant abnormal of electrolytes negative patient eating poorly, hypokalemia , hypomanic, hypothalamus is replaced and will continue monitoring Sacral Pressure ulcer, stage 4, POA, WC on the case, continue wound patient obviously has deconditioning, she is do not resuscitation and group home resident, possible poor prognosis, Report from palliative care , discussed goals of care at bedside with patient and her , Melvin. Melvin stated that the goal is still more for comfort and quality of life. They want to avoid aggressive/invasive treatments. if patient should decline or take a turn for the worst, he does NOT want any escalation in care and would likely transition to LAND TITLE EXAMINER at that time. Agree to order Roxanol 5mg PO/SL Q3h PRN pain or SOB. Would give dose prior to wound vac placement. med surg today, and back to group home soon, Continued [facility] stay due to: home environment unsafe for pt Discharge planning: intermediate facility
[2018-01-27] MEDS: POT PHOSPHATE MONOBASIC W/ SOD TAB PO SCH ×3 (13:30→20:58)
[2018-01-27 15:48] VITALS: BP 139/89; PULSE 88; TEMP 36.7; O2SAT 96
[2018-01-27 16:03] VITALS: O2SAT 96
[2018-01-27] MEDS: CLINDAMYCIN HCL 150 MG CAP PO SCH (17:40)
[2018-01-27] MEDS: CIPROFLOXACIN 500 MG TAB PO SCH (20:59)
[2018-01-27] MEDS: AMITRIPTYLINE HCL 25 MG TAB PO SCH (21:00)
[2018-01-28] VITALS: BP 137/62; PULSE 61; TEMP 36.6; O2SAT 94
[2018-01-28] MEDS: CLINDAMYCIN HCL 150 MG CAP PO SCH ×5 (01:29→23:41)
[2018-01-28 06:21] LABS: BASO % 0.4 %; BASO ABS # 0.03 K/uL (0-0.2); EOS % 1.8 %; EOS ABS # 0.12 K/uL (0-0.5); HEMOGLOBIN 11.4 g/dL (12.0-16.0); IG# 0.01 K/uL (0.00-0.02); LYMPH % 16.9 %; LYMPH ABS # 1.13 K/uL (1.2-3.4); MEAN CELL VOLUME 89.7 fL (80-100); MEAN CORPUSCULAR HEMOGLOBIN 29.2 pg (25-34); MEAN CORPUSCULAR HGB CONC 32.6 g/dl (32-36); MEAN PLATELET VOLUME 11.1 fL (7.4-10.4); MONO % 7.5 %; NEUT % 73.3 %; PLATELET COUNT 309 K/uL (130-400); RED CELL DISTRIBUTION WIDTH CV 16.6 % (11.5-14.5); RED CELL DISTRIBUTION WIDTH SD 54.9 fL (36.4-46.3); WHITE BLOOD COUNT 6.69 K/uL (4.8-10.8)
[2018-01-28 06:49] LABS: ALBUMIN 2.5 gm/dl (3.4-5.0); CALCIUM 9.8 mg/dl (8.5-10.1); CREATININE 0.27 mg/dl (0.60-1.20); PHOSPHORUS 3.3 mg/dl (2.5-4.9); POTASSIUM 3.6 mmol/L (3.5-5.1); TOTAL PROTEIN 6.9 gm/dl (6.4-8.2)
[2018-01-28 07:27] VITALS: BP 125/78; PULSE 89; TEMP 36.6; O2SAT 96
[2018-01-28] MEDS: ONDANSETRON INJ 2 MG/ML 2 ML VIAL IV PRN (08:15)
[2018-01-28] MEDS: OXYCODONE HCL IR 5 MG TAB (IMMEDIATE RELEASE) PO PRN (08:19)
[2018-01-28] MEDS: CIPROFLOXACIN 500 MG TAB PO SCH ×2 (08:20→21:47)
[2018-01-28] MEDS: GABAPENTIN 300 MG CAP PO SCH ×3 (08:21→21:46)
[2018-01-28] MEDS: LACTOBACILLUS ACIDOPHILUS 1 GM PACK PO SCH ×3 (08:21→17:41)
[2018-01-28] MEDS: PANTOprazole SOD 40 MG TAB PO SCH (08:21)
[2018-01-28] MEDS: MAGNESIUM OXIDE 400 MG TAB PO SCH ×2 (08:21→21:47)
[2018-01-28] MEDS: POTASSIUM CHLORIDE 10 MEQ TABCR PO SCH (08:21)
[2018-01-28] MEDS: TOPIRAMATE 25 MG TAB PO SCH ×2 (08:22→21:47)
[2018-01-28] MEDS: POT PHOSPHATE MONOBASIC W/ SOD TAB PO SCH ×4 (08:22→21:46)
[2018-01-28] MEDS: HEPARIN SOD 5000 UNIT/0.5 ML CARP SQ SCH ×2 (08:24→21:52)
[2018-01-28] MEDS: BOOST VANILLA PO SCH (10:00)
[2018-01-28] MEDS ORDERED: VANCOMYCIN TROUGH ONE (10:30)
--- NOTE | 2018-01-28 15:49 | Progress Note ---
Subjective Date of Service: Jan 28, 2018. Subjective Pt evaluation today including: conversation w/ patient, physical exam, chart review, lab review, review of studies, review of inpatient medication list Eating fair, generally feeling okay, tired, no fever and chill, Problem List Medical Problems: (1) Abnormal LFTs (liver function tests) Status: Acute (2) Altered mental status Status: Acute (3) Altered mental status Status: Acute (4) Cellulitis Status: Acute (5) Cystitis Status: Acute (6) Dehydration Status: Acute (7) Dehydration Status: Acute (8) Diarrhea Status: Acute (9) Exacerbation of multiple sclerosis Status: Acute (10) Fall at home Status: Acute (11) Femur fracture Status: Acute (12) Fever Status: Acute (13) Fracture of right hip Status: Acute (14) Headache Status: Acute (15) Hypokalemia Status: Acute (16) Intractable pain Status: Acute (17) Intractable vomiting Status: Acute (18) Migraine Status: Acute (19) Migraine Status: Acute (20) Migraine Status: Acute (21) Migraine Status: Acute (22) Migraine Status: Acute (23) Migraine Status: Acute (24) Migraine Status: Acute (25) Migraine Status: Acute (26) Migraine Status: Acute (27) Migraine Status: Acute (28) Migraine headache Status: Acute (29) Pelvis fracture, right Status: Acute (30) Pneumonia Status: Acute (31) Pressure ulcer of right buttock Status: Acute (32) Proctocolitis Status: Acute (33) Sacral ulcer Status: Acute (34) Status post closed fracture of right hip Status: Acute (35) Tachycardia Status: Acute (36) Tachycardia Status: Acute (37) Tachycardia Status: Acute (38) UTI (urinary tract infection) Status: Acute (39) Weakness Status: Acute (40) Weakness Status: Acute (41) Weakness Status: Acute Review of Systems Constitutional: + weakness, + fatigue, No fever, No chills Eyes: No see HPI, No worsening of vision, No eye pain, No redness, No discharge , No diplopia, No problem reported ENT: No see HPI, No hearing loss, No unusual epistaxis, No nasal symptoms, No sore throat, No tinnitus, No dental problems, No trouble swallowing, No problem reported Respiratory: No see HPI, No cough, No sputum, No wheezing, No shortness of breath, No dyspnea on exertion, No dyspnea at rest, No hemoptysis, No problem reported Cardiac: No see HPI, No chest pain, No orthopnea, No PND, No edema, No claudication, No palpitations, No problem reported Abdomen: No see HPI, No pain, No nausea, No vomiting, No diarrhea, No constipation, No GI bleeding, No problem reported Female : No see HPI, No dysuria, No urinary frequency, No hematuria, No incontinence, No abnormal vaginal bleeding, No vaginal discharge, No problem reported Neurologic: + weakness (From multiple sclerosis, unable to move toes), + problem reported Psychiatric: No see HPI, No depression symptoms, No anhedonism, No anxiety, No insomnia, No substance abuse, No problem reported Heme: No see HPI, No abnormal bleeding/bruising, No clotting problems, No swollen lymph nodes, No night sweats, No problem reported Objective Vital Signs Date Time Temp Pulse Resp B/P (MAP) Pulse Ox O2 Delivery O2 Flow Rate FiO2 01/28/18 11:05 Room Air 01/28/18 07:27 36.6 89 16 125/78 (94) 96 Room Air 01/28/18 00:30 Room Air 01/28/18 00:00 36.6 61 18 137/62 (87) 94 Room Air 01/27/18 16:03 96 Room Air 01/27/18 15:48 36.7 88 18 139/89 (106) 96 Room Air Physical Exam General Appearance: WD/WN, + thin, + pertinent finding (Frail continue feeling tired) Eyes: normal inspection, PERRL, EOMI, sclerae normal ENT: normal ENT inspection, hearing grossly normal, pharynx normal Neck: supple, no adenopathy, thyroid normal, no JVD, no carotid bruits, trachea midline Respiratory/Chest: no respiratory distress, no accessory muscle use, + decreased breath sounds Cardiovascular: regular rate, rhythm, no edema Abdomen: non tender, soft, no organomegaly Extremities: non-tender, + swelling Neurologic/Psychiatric: + pertinent finding (No facial droop, bilateral lower extremity generalized weakness and for extremity has atrophy) Skin: normal color Laboratory Results Last 24 Hours Test 01/28/18 05:20 White Blood Count 6.69 K/uL Red Blood Count 3.90 M/uL Hemoglobin 11.4 g/dL Hematocrit 35.0 % Mean Corpuscular Volume 89.7 fL Mean Corpuscular Hemoglobin 29.2 pg Mean Corpuscular Hemoglobin Concent 32.6 g/dl Platelet Count 309 K/uL Mean Platelet Volume 11.1 fL Neutrophils (%) (Auto) 73.3 % Lymphocytes (%) (Auto) 16.9 % Monocytes (%) (Auto) 7.5 % Eosinophils (%) (Auto) 1.8 % Basophils (%) (Auto) 0.4 % Neutrophils # (Auto) 4.90 K/uL Lymphocytes # (Auto) 1.13 K/uL Monocytes # (Auto) 0.50 K/uL Eosinophils # (Auto) 0.12 K/uL Basophils # (Auto) 0.03 K/uL RDW Standard Deviation 54.9 fL RDW Coefficient of Variation 16.6 % Immature Granulocyte % (Auto) 0.1 % Immature Granulocyte # (Auto) 0.01 K/uL Sodium Level 140 mmol/L Potassium Level 3.6 mmol/L Chloride Level 109 mmol/L Carbon Dioxide Level 23 mmol/L Anion Gap 8.0 mmol/L Blood Urea Nitrogen 14 mg/dl Creatinine 0.27 mg/dl Est Creatinine Clear Calc Drug Dose 116.6 ml/min Estimated GFR () 139.2 Estimated GFR (Non- 120.1 BUN/Creatinine Ratio 52.1 Random Glucose 77 mg/dl Calcium Level 9.8 mg/dl Phosphorus Level 3.3 mg/dl Magnesium Level 1.9 mg/dl Total Bilirubin 0.6 mg/dl Direct Bilirubin 0.2 mg/dl Aspartate Amino Transf (AST/SGOT) 36 U/L Alanine Aminotransferase (ALT/SGPT) 329 U/L Alkaline Phosphatase 316 U/L Total Protein 6.9 gm/dl Albumin 2.5 gm/dl Assessment and Plan 72-year-old female admitted on January 24, 2018 because of acute on chronic respiratory failure possible sepsis, pneumonia UTI with persistent fever, possible shock liver has been improving and stable Past medical history with advanced multiple sclerosis Stage IV pressure sacral ulcer:, Wheelchair-bound lives in a nursing facility. Recent left lower lobe pneumonia about 3 weeks ago. In Eemergency room, chest x-ray showed persistent left lower lobe density which could be from her previous pneumonia possible sepsis, pneumonia UTI and stage IV sacral decubitus wound infection, with persistent fever upon admission, stable and improving Acute respiratory failure w/ hypoxia secondary UTI POA w/ indwelling Hill: Continue stable and improving , patient now in room air, has stop nebulizer treatment, possible have no pneumonia upon admission Wound culture has 3 bacteria grows, 1 of them is MRSA, second 1 is Pseudomonas, so the component is Gabrielle albicans, Has been vancomycin + Cefepime, I switched to oral clindamycin and Cipro per sensitivity, day 5 out of 14 days of antibiotics will continue gabrielle albicans UTI, UTI due to chronic hill catheter, is treated w/ Diflucan 100 mg daily x7 days, will continue liver failure with significant elevated LFTs, likely secondary to shock liver: continue improving/resolving, Avoid liver toxic medication, Significant abnormal of electrolytes negative patient eating poorly, hypokalemia , hypomanic, hypothalamus is replaced and will continue monitoring Sacral Pressure ulcer, stage 4, POA, WC on the case, WOUND VAC REMOVED BY WOCN AND WILL NOT BE REPLACED DUE TO SKIN IS MOIST AROUND SACRAL WOUND. Possible can continue dry wound VAC after bed to [facility] patient obviously has deconditioning, she is do not resuscitation and group home resident, poor prognosis, Report from palliative care , discussed goals of care at bedside with patient and her , Melvin. Melvin stated that the goal is still more for comfort and quality of life. They want to avoid aggressive/invasive treatments. if patient should decline or take a turn for the worst, he does NOT want any escalation in care and would likely transition to TABLET MACHINE OPERATOR at that time. Agree to order Roxanol 5mg PO/SL Q3h PRN pain or SOB. Would give dose prior to wound vac placement. Called to patient's Mr. Jasso, discussed about the discharge plan, discussed about the recommendation to start hospice care and comfort measures after arriving to group home in [facility], possible not to restart the wound VAC because it causes pain, Mr. Jasso he agreed he will communication with in group home , Continued [facility] stay due to: home environment unsafe for pt Discharge planning: detention facility
[2018-01-28] MEDS ORDERED: RXNS10 PO (15:54)
[2018-01-28] MEDS ORDERED: CLC150 PO (15:54)
[2018-01-28] MEDS ORDERED: CPR500 PO (15:54)
[2018-01-28] MEDS ORDERED: MGNO400 PO (15:54)
[2018-01-28] MEDS ORDERED: Boost PO (15:54)
[2018-01-28] MEDS ORDERED: POTTAB2 PO (15:54)
--- NOTE | 2018-01-28 15:54 | Discharge Instructions ---
Discharge Instructions Date of Service Jan 28, 2018. Admission Reason for Admission: Acute Hepatitis Discharge Discharge Diagnosis / Problem: sepsis and UTI Discharge Goals Goal(s): Decrease discomfort, Improve function, Increase independence, Improve disease control, Improve nutritional status, Learn about illness, Diagnostic testing, Therapeutic intervention, Specific goals Activity Recommendations Activity Level: Bedrest . Additional Information Patient informed of condition: Yes Advance Directives: Yes DNR: Yes Level of Care: Skilled Communicable Disease: Yes Prognosis: Deteriorating Vera Catheter: Yes Instructions / Follow-Up Instructions / Follow-Up you have possible sepsis, pneumonia UTI and stage IV sacral decubitus wound infection, you have Acute respiratory failure w/ hypoxia secondary UTI POA w/ indwelling Vera: you need to continue oral clindamycin and Cipro per sensitivity, day 5 out of 14 days of antibiotics you have ford albicans UTI, will continue fro 4 days you ahve liver failur, need to Avoid liver toxic medication, you have Sacral Pressure ulcer, Possible can continue dry wound VAC after bed to [facility] possible start hospice care and comfort measures after arriving to assisted in [facility] after and patient discussed with MD, possible not to restart the wound VAC because it causes pain, Mr. Jasso he agreed he will communication with in assisted Current Hospital Diet Patient's current hospital diet: Regular Diet Discharge Diet Recommended Diet: Regular Diet Procedures Procedures Performed: no Pending Studies Studies pending at discharge: no Physician Orders On Transfer POLST Discussion: without POLST completion Medical Emergencies . Who to Call and When: Medical Emergencies: If at any time you feel your situation is an emergency, please call 911 immediately. . Non-Emergent Contact Non-Emergency issues call your: Primary Care Provider . . "Provider Documentation" section prepared by Lobo Bauer. . Core Measure Problem Core Measures: None
[2018-01-28 16:01] VITALS: BP 134/83; PULSE 83; TEMP 36.6; O2SAT 99
[2018-01-28 16:02] VITALS: O2SAT 96
[2018-01-28] MEDS ORDERED: FLUC100T PO (16:04)
--- NOTE | 2018-01-28 16:07 | Discharge Summary ---
Discharge Summary Date of Service Jan 28, 2018. Discharge Summary Admission Date: Jan 23, 2018 at 19:56 Discharge Date: Jan 29, 2018 Discharge Disposition: senior living facility Principal Diagnosis: ossible sepsis, UTI and stage IV sacral decubitus wound infection Problems/Secondary Diagnoses: Acute respiratory failure w/ hypoxia secondary UTI POA w/ indwelling Hill: liver failure, Sacral Pressure ulcer, Immunizations: Have You Had Influenza Vaccine: Yes Influenza Vaccine Date: Sep 09, 2013 History of Tetanus Vaccine?: Yes Tetanus Immunization Date: Oct 12, 2002 History of Pneumococcal: UNSURE Pneumococcal Date: Sep 03, 2011 History of Hepatitis B Vaccine: No Procedures: No Consultations: Dr. Linn Medication Reconciliation New Medications: Fluconazole (Diflucan) 100 Mg Tab 100 MG PO DAILY for 4 Days, TAB Ciprofloxacin (Ciprofloxacin HCl) 500 Mg Tab 500 MG PO BID for 10 Days, TAB Clindamycin HCl (Clindamycin HCl) 150 Mg Cap 150 MG PO Q6 for 10 Days, #40 CAP Magnesium Oxide (Magnesium-Oxide) 400 Mg Tab 400 MG PO BID for 7 Days, TAB Morphine Sulfate (Morphine Sulfate) 10 Mg/0.5 Ml Soln 5 MG PO Q6 PRN for Pain for 3 Days, #30 Pot Phosphate Monobasic W/ Sod (Phospha 250 Neutral) 1 Tab Tab 1 TAB PO QID for 3 Days, TAB [Boost] () 1 CAN LIQD 1 CAN PO DAILY for 14 Days Continued Medications: Acetaminophen (Tylenol) 650 Mg Supp 1 SUPP DE Q6H PRN for MILD PAIN OR FEVER Acetaminophen Tab (Tylenol) 325 Mg Tab 325 MG PO DAILY PRN for Pain or Fever Amitriptyline Hcl (Elavil) 75 Mg Tab 75 MG PO HS TAKE THIS MEDICATION 2-3 HOURS BEFORE BEDTIME. Ascorbic Acid (Vitamin C) 500 Mg Tab 500 MG PO DAILY Bisacodyl (Dulcolax) 10 Mg Sup 1 SUPP DE Q4DAYS PRN for Constipation, SUP Cranberry (Vaccinium Macrocarp (Cranberry) 450 Mg Tab 450 MG PO DAILY Gabapentin (Gabapentin) 800 Mg Tab 800 MG PO TID Guaifenesin (Guaifenesin) 100 Mg/5 Ml Syp 10 ML PO Q12 Loperamide Hcl (Imodium A-D) 2 Mg Tab 2 MG PO DIRECTED Magnesium Hydroxide (Milk Of Magnesia) 30 Ml Susp 30 ML PO UD PRN for Constipation, ML Meclizine HCl (Meclizine HCl) 12.5 Mg Tab 12.5 MG PO Q8 PRN for Dizziness or Vertigo, TAB Midodrine Hcl (Midodrine Hcl) 5 Mg Tab 5 MG PO TID Multivitamins/Minerals (Mvi With Minerals) Tab 1 TAB PO DAILY, TAB Ondansetron Hcl (Zofran) 4 Mg Tab 4 MG PO Q8H PRN for Nausea Pantoprazole (Pantoprazole Sodium) 40 Mg Tab 40 MG PO BID Potassium Chloride (Micro-K Ext Rel) 10 Meq Capcr 10 MEQ PO DAILY, CAP Prednisone Tab (Prednisone) 10 Mg Tab 10 MG PO QAM, #30 TAB 2 Refills Probiotic Product (Probiotic) 1 Cap Cap 1 CAP PO DAILY Sumatriptan Succinate (Imitrex) 100 Mg Tab 100 MG PO UD PRN for Migraine TAKE 1 TABLET FOR MIGRAINE RELIEF, MAY REPEAT 2 HOURS LATER IF NEEDED. MAXIMUM 200 MG/DAY. Topiramate (Topiramate) 25 Mg Tab 25 MG PO BID Discontinued Medications: Levofloxacin (Levaquin) 750 Mg Tab 750 MG PO DAILY Oxycodone HCl (Oxycodone HCl ER) 20 Mg Tab 20 MG PO BID Discharge Exam See today's progress Review of Systems: Constitutional: + problem reported (She today's progress) Physical Exam: General Appearance: + pertinent finding (See today's progress) Hospital Course 72-year-old female admitted on January 24, 2018 because of acute on chronic respiratory failure possible sepsis, pneumonia UTI with persistent fever, possible shock liver has been improving and stable Past medical history with advanced multiple sclerosis Stage IV pressure sacral ulcer:, Wheelchair-bound lives in a nursing facility. Recent left lower lobe pneumonia about 3 weeks ago. In Eemergency room, chest x-ray showed persistent left lower lobe density which could be from her previous pneumonia possible sepsis, pneumonia UTI and stage IV sacral decubitus wound infection, with persistent fever upon admission, stable and improving Acute respiratory failure w/ hypoxia secondary UTI POA w/ indwelling Hill: Continue stable and improving , patient now in room air, has stop nebulizer treatment, possible have no pneumonia upon admission Wound culture has 3 bacteria grows, 1 of them is MRSA, second 1 is Pseudomonas, so the component is Gabrielle albicans, Has been vancomycin + Cefepime, I switched to oral clindamycin and Cipro per sensitivity, day 5 out of 14 days of antibiotics will continue gabrielle albicans UTI, UTI due to chronic hill catheter, is treated w/ Diflucan 100 mg daily x7 days, will continue liver failure with significant elevated LFTs, likely secondary to shock liver: continue improving/resolving, Avoid liver toxic medication, Significant abnormal of electrolytes negative patient eating poorly, hypokalemia , hypomanic, hypothalamus is replaced and will continue monitoring Sacral Pressure ulcer, stage 4, POA, WC on the case, WOUND VAC REMOVED BY WOCN AND WILL NOT BE REPLACED DUE TO SKIN IS MOIST AROUND SACRAL WOUND. Possible can continue dry wound VAC after bed to [facility] patient obviously has deconditioning, she is do not resuscitation and half-way resident, poor prognosis, Report from palliative care , discussed goals of care at bedside with patient and her , Melvin. Melvin stated that the goal is still more for comfort and quality of life. They want to avoid aggressive/invasive treatments. if patient should decline or take a turn for the worst, he does NOT want any escalation in care and would likely transition to GENERAL REPAIRER at that time. Agree to order Roxanol 5mg PO/SL Q3h PRN pain or SOB. Would give dose prior to wound vac placement. Called to patient's Mr. Jasso, discussed about the discharge plan, discussed about the recommendation to start hospice care and comfort measures after arriving to half-way in [facility], possible not to restart the wound VAC because it causes pain, Mr. Jasso he agreed he will communication with in half-way Instructions / Follow-Up you have possible sepsis, pneumonia UTI and stage IV sacral decubitus wound infection, you have Acute respiratory failure w/ hypoxia secondary UTI POA w/ indwelling Hill: you need to continue oral clindamycin and Cipro per sensitivity, day 5 out of 14 days of antibiotics you have gabrielle albicans UTI, will continue fro 4 days you ahve liver failur, need to Avoid liver toxic medication, you have Sacral Pressure ulcer, Possible can continue dry wound VAC after bed to [facility] possible start hospice care and comfort measures after arriving to half-way in [facility] after and patient discussed with MD, possible not to restart the wound VAC because it causes pain, Mr. Jasso he agreed he will communication with in half-way , Total Time Spent: Greater than 30 minutes This includes examination of the patient, discharge planning, medication reconciliation, and communication with other providers. Discharge Instructions Please refer to the electronic Patient Visit Report (Discharge Instructions) for additional information.
[2018-01-28] MEDS ORDERED: FLUCONAZOLE 100 MG TAB PO ONE (16:15)
[2018-01-28] MEDS: AMITRIPTYLINE HCL 25 MG TAB PO SCH (21:47)
[2018-01-28 23:05] VITALS: BP 118/79; PULSE 101; TEMP 36.4; O2SAT 97
[2018-01-29 01:33] LABS: EBV EARLY ANTIGEN AB < 9.00 U/ML; HEPATITIS B CORE IGM TC51854R NON-REACTIVE (NON-REACTIVE); HEPATITIS BE ANTIBODY TC 556 Nonreactive
[2018-01-29 05:57] LABS: HEMATOCRIT 36.4 % (37-47); HEMOGLOBIN 11.5 g/dL (12.0-16.0); MEAN CELL VOLUME 91.2 fL (80-100); MEAN CORPUSCULAR HEMOGLOBIN 28.8 pg (25-34); MEAN CORPUSCULAR HGB CONC 31.6 g/dl (32-36); MEAN PLATELET VOLUME 10.3 fL (7.4-10.4); PLATELET COUNT 344 K/uL (130-400); RED CELL DISTRIBUTION WIDTH CV 16.9 % (11.5-14.5); RED CELL DISTRIBUTION WIDTH SD 56.4 fL (36.4-46.3)
[2018-01-29] MEDS: CLINDAMYCIN HCL 150 MG CAP PO SCH (06:08)
[2018-01-29 07:39] VITALS: BP 118/79; PULSE 96; TEMP 36.7; O2SAT 95
[2018-01-29 07:49] VITALS: O2SAT 95
[2018-01-29] MEDS ORDERED: FLUCONAZOLE 100 MG TAB PO SCH (08:00)
[2018-01-29] MEDS: BOOST VANILLA PO SCH (08:17)
[2018-01-29] MEDS: CIPROFLOXACIN 500 MG TAB PO SCH (08:19)
[2018-01-29] MEDS: LACTOBACILLUS ACIDOPHILUS 1 GM PACK PO SCH (08:20)
[2018-01-29] MEDS: POTASSIUM CHLORIDE 10 MEQ TABCR PO SCH (08:20)
[2018-01-29] MEDS: GABAPENTIN 300 MG CAP PO SCH (08:21)
[2018-01-29] MEDS: MAGNESIUM OXIDE 400 MG TAB PO SCH (08:21)
[2018-01-29] MEDS: POT PHOSPHATE MONOBASIC W/ SOD TAB PO SCH (08:22)
[2018-01-29] MEDS: TOPIRAMATE 25 MG TAB PO SCH (08:23)
[2018-01-29] MEDS: PANTOprazole SOD 40 MG TAB PO SCH (08:23)
[2018-01-29] MEDS: ONDANSETRON INJ 2 MG/ML 2 ML VIAL IV PRN (08:38)
[2018-01-29] MEDS: OXYCODONE HCL IR 5 MG TAB (IMMEDIATE RELEASE) PO PRN (08:38)
[2018-01-29] MEDS: HEPARIN SOD 5000 UNIT/0.5 ML CARP SQ SCH (08:45)
[2018-01-29] MEDS ORDERED: FLUC100T PO (09:19)
--- NOTE | 2018-01-29 09:31 | Discharge Instructions ---
Discharge Instructions Date of Service Jan 29, 2018. Admission Reason for Admission: Acute Hepatitis Discharge Discharge Diagnosis / Problem: Shock liver, PNA, sacral wound Discharge Goals Goal(s): Decrease discomfort, Improve function, Increase independence, Improve disease control, Improve nutritional status, Learn about illness, Diagnostic testing, Therapeutic intervention, Prevent Disease Progression Activity Recommendations Activity Level: Assistance Required Therapies: Physical Therapy, Occupational Therapy, Speech Therapy . Additional Information Patient informed of condition: Yes Advance Directives: Yes DNR: Yes Level of Care: Skilled Communicable Disease: Yes Prognosis: Deteriorating Oxygen at (LPM): by protocol Vera Catheter: Yes Instructions / Follow-Up Instructions / Follow-Up Acute respiratory failure w/ hypoxia secondary to PNA- IMPROVING: - O2 by protocol - IV Vancomycin + Cefepime- transitioned to PO Clindamycin + Cipro for 14 days of treatment - Probiotics - BCx- NGTD UTI POA w/ indwelling Vera: UCx w/ gabrielle albicans- treat w/ Diflucan 100 mg daily x7 day- last day 01/30 Elevated LFTs, secondary to shock liver- IMPROVING: Avoid hepatotoxic medications Palliative care consultation: - DNR, no escalated care - Possible proceed w/ hospice care at [facility] Stage IV pressure sacral ulcer: - Wound care consulted, appreciate recommendations- wound vac could not be placed due to pain - Wound Cx w/ MRSA, Pseudomonas, Gabrielle- Diflucan and abx as above - Morphine PRN for pain management Hypokalemia- RESOLVED: Replace w/ KCL supplement, follow PRP and replace PRN Hypomagnesemia- RESOLVED: Replaced w/ IV Mag supplement, continue Mag-Ox supplement- follow mag level and replace PRN Hypophosphatemia- RESOLVED: Replaced w/ IV Phosphate supplement, continue Phosphate supplement- follow phosphorus level and replace PRN Fecal retention on abdominal CT- RESOLVED: MiraLAX daily PRN, Milk of Mag PRN Depression w/ anxiety, advanced MS/functional quadriplegia wheelchair-bound: - Continue Elavil 25 mg HS, Gabapentin 300 mg TID, Topamax 25 mg BID, Prednisone 10 mg daily Severe protein calorie malnutrition: Nutrition consulted- snacks TID and Boost daily GI prophylaxis, GERD: Protonix daily DVT prophylaxis: Heparin SQ BID Code status: LEVEL V, DNR Dispo: Discharge to [facility] FOLLOW-UPS: Please follow-up with [facility] provider within 24-48 hours Please follow-up/keep all of your subspecialty appointments Current Hospital Diet Patient's current hospital diet: Regular Diet Discharge Diet Recommended Diet: Regular Diet Procedures Procedures Performed: no Pending Studies Studies pending at discharge: no Physician Orders On Transfer Special Precautions: Fall precautions, aspiration precautions, contact precautions Dressing Changes: Sacral wound care- ?dry wound vac placement if possible IV Therapy: None Vital Signs: Routine POLST Discussion: with POLST completion Medical Emergencies . Who to Call and When: Medical Emergencies: If at any time you feel your situation is an emergency, please call 911 immediately. . Non-Emergent Contact Non-Emergency issues call your: Primary Care Provider Call Non-Emergent contact if: you have a fever, your pain is not controlled, your pain is worsening, your pain is unusual for you, your pain is concerning you, wound has increased drainage, wound has increased redness, wound has increased pain, you have any medication questions . . "Provider Documentation" section prepared by Katiana Thomas. . Core Measure Problem Core Measures: None
--- NOTE | 2018-01-29 09:40 | Discharge Summary ---
Discharge Summary Date of Service Jan 29, 2018. Discharge Summary Admission Date: Jan 23, 2018 at 19:56 Discharge Date: Jan 29, 2018 Discharge Disposition: intermediate facility Principal Diagnosis: Sacral wound, PNA, shock liver Problems/Secondary Diagnoses: Acute respiratory failure w/ hypoxia secondary to PNA Leukocytosis Ford UTI POA w/ indwelling Vera Elevated LFTs, secondary to shock liver Palliative care Stage IV pressure sacral ulcer Hypokalemia Hypomagnesemia Hypophosphatemia Fecal retention Depression w/ anxiety advanced MS/ Functional quadriplegia wheelchair-bound Severe protein calorie malnutrition GERD Immunizations: Have You Had Influenza Vaccine: Yes Influenza Vaccine Date: Sep 09, 2013 History of Tetanus Vaccine?: Yes Tetanus Immunization Date: Oct 12, 2002 History of Pneumococcal: UNSURE Pneumococcal Date: Sep 03, 2011 History of Hepatitis B Vaccine: No Procedures: CHEST ONE VIEW PORTABLE CLINICAL HISTORY: Sepsis dyspnea COMPARISON STUDY: 12/28/2017 FINDINGS: Persistent increase in density left base. Lungs otherwise are clear. Central catheter remains in superior vena cava. Postoperative changes to the thoracolumbar spine are unchanged. IMPRESSION: Persistent left basilar consolidative change. No change from the prior study dated 12/28/2017 The above report was generated using voice recognition software. It may contain grammatical, syntax or spelling errors. Electronically signed by: Geovany De Jesus M.D. 01/23/2018 1:52 PM Dictated Date/Time: 01/23/2018 1:47 PM The status of this report is Signed. Draft = Not yet reviewed or approved by Radiologist. Signed = Reviewed and approved by Radiologist. ABDOMINAL ULTRASOUND, RIGHT UPPER QUADRANT HISTORY: Elevated liver function tests. COMPARISON: Right upper quadrant ultrasound June 18, [address] of the abdomen and pelvis August 15, 2017. FINDINGS: Incidental note is made of a 6.4 cm left renal cyst. No hepatic lesions are identified. There is no intrahepatic biliary ductal dilatation status post cholecystectomy. The common bile duct is mildly dilated, measuring 9 mm in caliber. This is unchanged since exam of June 18, 2017. No common bile duct calculi are identified. The pancreatic body is normal. Head and tail are partially obscured. There is no right hydronephrosis. IMPRESSION: 1. Mild dilatation of the common bile duct which is unchanged since ultrasound of June 18, 2017 and likely related to previous cholecystectomy. 2. 6.4 cm left renal cyst. Electronically signed by: Edgar Dotson M.D. 01/23/2018 5:26 PM Dictated Date/Time: 01/23/2018 5:22 PM The status of this report is Signed. Draft = Not yet reviewed or approved by Radiologist. Signed = Reviewed and approved by Radiologist. LIVER (ABDOMEN) COMBO CLINICAL HISTORY: hepatitis pain TECHNIQUE: Transaxial acquisition pre and postcontrast enhancement and multiphase fashion. Three-dimensional reformatted image evaluation. COMPARISON STUDY: 08/15/2007 FINDINGS: Combination of left basilar pleural effusion and left basilar consolidative change. Multifocal nodular-type change right lung base. This is slightly progressive compared to the prior exam. Mild fatty infiltration of liver. Small stable left hepatic lobe cyst. Slight prominence of the spleen with uniform enhancement characteristics. Postoperative changes to the stomach which have been described previously. Multiple nonobstructing left renal calcifications generally stable from the prior study. Left renal cyst unchanged. Mild nonobstructive bowel ileus. Increased fecal load within the ascending transverse colon. Postoperative changes of the thoracolumbar spine which demonstrated previously. IMPRESSION: 1. Left basilar pleural effusion with left basilar consolidative change. 2. Multifocal right basilar parenchymal nodular/infiltrative changes. 3. Nonobstructing calcifications left kidney with a stable left renal cyst. 4. Extensive postoperative changes and stabilization procedure the thoracolumbar spine. 5. Increased fecal load within the transverse and a sending colonic regions. 6. 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 The above report was generated using voice recognition software. It may contain grammatical, syntax or spelling errors. Electronically signed by: Geovany De Jesus M.D. 01/24/2018 6:58 AM Dictated Date/Time: 01/24/2018 6:50 AM The status of this report is Signed. Draft = Not yet reviewed or approved by Radiologist. Signed = Reviewed and approved by Radiologist. DUPLEX PORTAL HEPATIC VEINS CLINICAL HISTORY: acute elevation in liver enz increased liver enzymes TECHNIQUE: Doppler COMPARISON STUDY: None FINDINGS: Limited study as patient was uncooperative. A high respiratory rate was present. All major hepatic portal and splenic venous structures appear to show antegrade flow. There is no evidence for thrombosis. IMPRESSION: Negative study with all major venous structures patent and antegrade in terms of flow. The above report was generated using voice recognition software. It may contain grammatical, syntax or spelling errors. Electronically signed by: Geovany De Jesus M.D. 01/24/2018 6:38 AM Dictated Date/Time: 01/24/2018 6:37 AM The status of this report is Signed. Draft = Not yet reviewed or approved by Radiologist. Signed = Reviewed and approved by Radiologist. Consultations: Palliative care GI Medication Reconciliation New Medications: Fluconazole (Diflucan) 100 Mg Tab 100 MG PO DAILY for 1 Day, TAB Ciprofloxacin (Ciprofloxacin HCl) 500 Mg Tab 500 MG PO BID for 10 Days, TAB Clindamycin HCl (Clindamycin HCl) 150 Mg Cap 150 MG PO Q6 for 10 Days, #40 CAP Magnesium Oxide (Magnesium-Oxide) 400 Mg Tab 400 MG PO BID for 7 Days, TAB Morphine Sulfate (Morphine Sulfate) 10 Mg/0.5 Ml Soln 5 MG PO Q6 PRN for Pain for 3 Days, #30 Pot Phosphate Monobasic W/ Sod (Phospha 250 Neutral) 1 Tab Tab 1 TAB PO QID for 3 Days, TAB [Boost] () 1 CAN LIQD 1 CAN PO DAILY for 14 Days Continued Medications: Acetaminophen (Tylenol) 650 Mg Supp 1 SUPP AK Q6H PRN for MILD PAIN OR FEVER Acetaminophen Tab (Tylenol) 325 Mg Tab 325 MG PO DAILY PRN for Pain or Fever Amitriptyline Hcl (Elavil) 75 Mg Tab 75 MG PO HS TAKE THIS MEDICATION 2-3 HOURS BEFORE BEDTIME. Ascorbic Acid (Vitamin C) 500 Mg Tab 500 MG PO DAILY Bisacodyl (Dulcolax) 10 Mg Sup 1 SUPP AK Q4DAYS PRN for Constipation, SUP Cranberry (Vaccinium Macrocarp (Cranberry) 450 Mg Tab 450 MG PO DAILY Gabapentin (Gabapentin) 800 Mg Tab 800 MG PO TID Guaifenesin (Guaifenesin) 100 Mg/5 Ml Syp 10 ML PO Q12 Loperamide Hcl (Imodium A-D) 2 Mg Tab 2 MG PO DIRECTED Magnesium Hydroxide (Milk Of Magnesia) 30 Ml Susp 30 ML PO UD PRN for Constipation, ML Meclizine HCl (Meclizine HCl) 12.5 Mg Tab 12.5 MG PO Q8 PRN for Dizziness or Vertigo, TAB Midodrine Hcl (Midodrine Hcl) 5 Mg Tab 5 MG PO TID Multivitamins/Minerals (Mvi With Minerals) Tab 1 TAB PO DAILY, TAB Ondansetron Hcl (Zofran) 4 Mg Tab 4 MG PO Q8H PRN for Nausea Pantoprazole (Pantoprazole Sodium) 40 Mg Tab 40 MG PO BID Potassium Chloride (Micro-K Ext Rel) 10 Meq Capcr 10 MEQ PO DAILY, CAP Prednisone Tab (Prednisone) 10 Mg Tab 10 MG PO QAM, #30 TAB 2 Refills Probiotic Product (Probiotic) 1 Cap Cap 1 CAP PO DAILY Sumatriptan Succinate (Imitrex) 100 Mg Tab 100 MG PO UD PRN for Migraine TAKE 1 TABLET FOR MIGRAINE RELIEF, MAY REPEAT 2 HOURS LATER IF NEEDED. MAXIMUM 200 MG/DAY. Topiramate (Topiramate) 25 Mg Tab 25 MG PO BID Discontinued Medications: Levofloxacin (Levaquin) 750 Mg Tab 750 MG PO DAILY Oxycodone HCl (Oxycodone HCl ER) 20 Mg Tab 20 MG PO BID Discharge Exam Review of Systems: Constitutional: No fever, No chills, No sweats, No weakness, No fatigue Eyes: No worsening of vision ENT: No hearing loss Respiratory: No cough, No shortness of breath, No hemoptysis Cardiovascular: No chest pain, No edema, No palpitations Abdomen: No pain, No nausea, No vomiting, No diarrhea, No constipation Musculoskeletal: No joint pain, No muscle pain, No swelling, No calf pain Genitourinary - Male: + problem reported (Vera in place ) Neurologic: No weakness, No numbness/tingling Psychiatric: No depression symptoms, No anxiety Endocrine: No fatigue Hematologic / Lymphatic: No abnormal bleeding/bruising Integumentary: No rash, No itch, No new/changing skin lesions Physical Exam: General Appearance: no apparent distress, + cachetic, + thin Eyes: normal inspection, PERRL ENT: hearing grossly normal Neck: supple Respiratory/Chest: lungs clear, no respiratory distress, no accessory muscle use, + decreased breath sounds (throughout ) Cardiovascular: regular rate, rhythm Abdomen / GI: normal bowel sounds, non tender, soft Extremities: no calf tenderness, no pedal edema Neurologic/Psychiatric: alert, normal mood/affect, oriented x 3 Skin: normal color, warm/dry, + pallor Hospital Course 72-year-old female with advanced MS,. Wheelchair-bound lives in a nursing facility. Recently diagnosed with left lower lobe pneumonia about 3 weeks ago. At that time her liver enzymes were started to go up. She was found at [facility] to have low oxygen saturation on room air about 85%, also was found to have persistent fever she was sent to the ED for further evaluation and management. Chest x-ray showed persistent left lower lobe density which could be from her previous pneumonia or could be a new recurrence. In the setting of her hypoxemia. On the other hand her liver enzymes were noted to be extremely elevated and she was found to have a UTI Acute respiratory failure w/ hypoxia secondary to PNA- IMPROVING: - Admitted to tele for cardiac monitoring- no acute events - O2 protocol- currently on RA - IV Vancomycin + Cefepime- transitioned to PO Cipro + Clindamycin x14 days - Probiotics - DuoNebs QID and PRN for SOB/wheezing- discontinued due to tachycardia - Leukocytosis- RESOLVED - Treated w/ IVF @ 50 ml/hr - Speech therapy consulted, appreciate recommendations- regular diet, no new recommendations - BCx- NGTD UTI POA w/ indwelling Vera: UCx w/ ford albicans- treat w/ Diflucan 100 mg daily x7 day- last day 01/30 Elevated LFTs, secondary to shock liver- IMPROVING: - GI consulted, appreciate recommendations- continue to follow LFTs - Abdominal CT/liver US reviewed - Infectious serologies- hepatitis A+ - Tylenol level 3- treated w/ IV Acetylcysteine prophylactically Palliative care consultation: - DNR, no escalated care - ?proceed w/ hospice at SNF Stage IV pressure sacral ulcer: - Wound care consulted, appreciate recommendations- wound vac could not be placed due to pain/skin condition - Wound Cx w/ MRSA, Pseudomonas, Ford - Morphine PRN for pain management Hypokalemia- RESOLVED: Replace w/ KCL supplement, follow PRP and replace PRN Hypomagnesemia- RESOLVED: Replaced w/ IV Mag supplement, continue Mag-Ox supplement- follow mag level and replace PRN Hypophosphatemia- RESOLVED: Replace w/ IV Phosphate supplement, continue Phosphate supplement- follow phosphorus level and replace PRN Fecal retention on abdominal CT- RESOLVED: MiraLAX daily PRN, Milk of Mag PRN Depression w/ anxiety, advanced MS/functional quadriplegia wheelchair-bound: - Continue Elavil 25 mg HS, Gabapentin 300 mg TID, Topamax 25 mg BID - IV Hydrocortisone TID for stress dosing due to hypotension at admission- improving- transitioned back to chronic 10 mg Prednisone daily Severe protein calorie malnutrition: Nutrition consulted- snacks TID and Boost daily GI prophylaxis, GERD: Protonix daily DVT prophylaxis: Heparin SQ BID Code status: LEVEL V, DNR Dispo: Discharge to [facility] Total Time Spent: Greater than 30 minutes This includes examination of the patient, discharge planning, medication reconciliation, and communication with other providers. Discharge Instructions Please refer to the electronic Patient Visit Report (Discharge Instructions) for additional information. Follow-Up Please follow-up with [facility] provider within 24-48 hours Please follow-up/keep all of your subspecialty appointments Additional Copies To [facility]
[2018-01-29 10:07] VITALS: BP 118/79; PULSE 96; TEMP 36.7; O2SAT 95
== END 2018-01-29 11:15 | DRG 871 ==
LOC: EDBD 13:11 → C.EDC 13:12 → C.MSICU 19:56 → UNDOADMIN 19:56 → ENRESERV 20:07 → C.2T 01-26 22:09 → C.MSICU 01-26 22:09 → ENRESERV 01-27 13:42 → C.4E 01-27 14:39 → C.2T 01-27 14:39
PROVIDERS: ADMIT Internal Medicine; ATTEND Internal Medicine
DX: A41.9 Sepsis, unspecified organism (principal); N39.0 Urinary tract infection, site not specified; J96.01 Acute respiratory failure with hypoxia; R53.2 Functional quadriplegia; L89.154 Pressure ulcer of sacral region, stage 4; E43 Unspecified severe protein-calorie malnutrition; Z51.5 Encounter for palliative care; K72.00 Acute and subacute hepatic failure without coma; T83.518A Infection and inflammatory reaction due to other urinary catheter, initial encounter; G35 Multiple sclerosis; I10 Essential (primary) hypertension; R94.5 Abnormal results of liver function studies; I95.9 Hypotension, unspecified; F32.9 Major depressive disorder, single episode, unspecified; F41.9 Anxiety disorder, unspecified; E87.6 Hypokalemia; E83.42 Hypomagnesemia; K59.00 Constipation, unspecified; Z66 Do not resuscitate; E83.39 Other disorders of phosphorus metabolism; Z99.3 Dependence on wheelchair; Z87.440 Personal history of urinary (tract) infections; Z90.710 Acquired absence of both cervix and uterus; Z88.5 Allergy status to narcotic agent; Z87.891 Personal history of nicotine dependence; Z80.3 Family history of malignant neoplasm of breast; Z83.3 Family history of diabetes mellitus; Z82.49 Family history of ischemic heart disease and other diseases of the circulatory system

== ENCOUNTER → 2018-01-23 | Outpatient (CLI) | payer OTHER ==
[~2018-01-23] MED LIST changes: +GUAI100S16 PO; +LEVO1TAB35 PO
[2018-01-23 11:37] LABS: INFLUENZA B ANTIGEN Neg for Influ B (NEG)
== END ==
LOC: C.LABUPNIT 10:43
PROVIDERS: ATTEND Nurse Practitioner Family
DX: R50.9 Fever, unspecified (principal)

== ENCOUNTER → 2018-01-23 | Outpatient (CLI) | payer OTHER ==
[2018-01-23 09:49] LABS: HEMATOCRIT 38.8 % (37-47); HEMOGLOBIN 12.3 g/dL (12.0-16.0); MEAN CORPUSCULAR HEMOGLOBIN 29.5 pg (25-34); MEAN CORPUSCULAR HGB CONC 31.7 g/dl (32-36); MEAN PLATELET VOLUME 11.1 fL (7.4-10.4); PLATELET COUNT 238 K/uL (130-400); RED CELL DISTRIBUTION WIDTH CV 16.3 % (11.5-14.5); RED CELL DISTRIBUTION WIDTH SD 55.2 fL (36.4-46.3); WHITE BLOOD COUNT 11.01 K/uL (4.8-10.8)
[2018-01-23 10:13] LABS: ALBUMIN 2.6 gm/dl (3.4-5.0); ALT/SGPT 364 U/L (12-78); AST/SGOT 414 U/L (15-37); BLOOD UREA NITROGEN 19 mg/dl (7-18); CALCIUM 9.5 mg/dl (8.5-10.1); CARBON DIOXIDE 26 mmol/L (21-32); CREATININE 0.49 mg/dl (0.60-1.20); GLUCOSE 60 mg/dl (70-99); POTASSIUM 3.8 mmol/L (3.5-5.1); SODIUM 137 mmol/L (136-145)
[2018-01-23 10:15] LABS: ALKALINE PHOSPHATASE 141 U/L (45-117); TOTAL PROTEIN 6.6 gm/dl (6.4-8.2)
== END ==
LOC: C.LABUPUNI 09:26
PROVIDERS: ATTEND Nurse Practitioner Family
DX: I10 Essential (primary) hypertension (principal)

== ENCOUNTER → 2018-02-05 | Outpatient (CLI) | payer OTHER ==
[~2018-02-05] MED LIST changes: -AMOX1TAB43 PO; -AZIT-57 PO; +Boost PO; +CLC150 PO; +CPR500 PO; +FLUC100T PO; +GUAI100S16 PO; +MGNO400 PO; -OXYC-106 PO; -OXYC-739 PO; +POTTAB2 PO; +RXNS10 PO
[2018-02-05 08:36] LABS: HEMOGLOBIN 11.5 g/dL (12.0-16.0); MEAN CELL VOLUME 92.1 fL (80-100); MEAN CORPUSCULAR HEMOGLOBIN 29.4 pg (25-34); MEAN CORPUSCULAR HGB CONC 31.9 g/dl (32-36); MEAN PLATELET VOLUME 11.3 fL (7.4-10.4); PLATELET COUNT 348 K/uL (130-400); RED CELL DISTRIBUTION WIDTH CV 16.5 % (11.5-14.5); RED CELL DISTRIBUTION WIDTH SD 55.4 fL (36.4-46.3); WHITE BLOOD COUNT 7.45 K/uL (4.8-10.8)
[2018-02-05 09:04] LABS: ALBUMIN 2.5 gm/dl (3.4-5.0); ALT/SGPT 51 U/L (12-78); AST/SGOT 25 U/L (15-37); BLOOD UREA NITROGEN 21 mg/dl (7-18); CALCIUM 9.5 mg/dl (8.5-10.1); CARBON DIOXIDE 31 mmol/L (21-32); CREATININE 0.55 mg/dl (0.60-1.20); GLUCOSE 62 mg/dl (70-99); POTASSIUM 3.8 mmol/L (3.5-5.1); SODIUM 140 mmol/L (136-145)
[2018-02-05 09:07] LABS: ALKALINE PHOSPHATASE 129 U/L (45-117); PHOSPHORUS 3.1 mg/dl (2.5-4.9); TOTAL PROTEIN 6.3 gm/dl (6.4-8.2)
== END ==
LOC: C.LABUPNIT 08:05
PROVIDERS: ATTEND Nurse Practitioner Family
DX: E83.40 Disorders of magnesium metabolism, unspecified (principal); E83.30 Disorder of phosphorus metabolism, unspecified

== ENCOUNTER → 2018-02-07 | Outpatient (CLI) | payer OTHER | LOC: C.LABUPNIT 09:05 | PROVIDERS: ATTEND Nurse Practitioner Family | DX: R48.8 Other symbolic dysfunctions (principal) ==

== ENCOUNTER → 2018-02-27 | Outpatient (CLI) | payer OTHER ==
[~2018-02-27] MED LIST changes: -GUAI100S16 PO; +GUAI100S66 PO
[2018-02-27 08:40] LABS: HEMATOCRIT 33.8 % (37-47); MEAN CELL VOLUME 91.1 fL (80-100); MEAN CORPUSCULAR HEMOGLOBIN 29.6 pg (25-34); MEAN CORPUSCULAR HGB CONC 32.5 g/dl (32-36); MEAN PLATELET VOLUME 10.3 fL (7.4-10.4); PLATELET COUNT 311 K/uL (130-400); RED CELL DISTRIBUTION WIDTH CV 15.5 % (11.5-14.5); RED CELL DISTRIBUTION WIDTH SD 51.9 fL (36.4-46.3); WHITE BLOOD COUNT 8.82 K/uL (4.8-10.8)
[2018-02-27 08:48] LABS: ALBUMIN 2.2 gm/dl (3.4-5.0); ALT/SGPT 90 U/L (12-78); AST/SGOT 49 U/L (15-37); BLOOD UREA NITROGEN 20 mg/dl (7-18); CALCIUM 8.9 mg/dl (8.5-10.1); CARBON DIOXIDE 30 mmol/L (21-32); CREATININE 0.49 mg/dl (0.60-1.20); GLUCOSE 65 mg/dl (70-99); POTASSIUM 3.1 mmol/L (3.5-5.1); SODIUM 140 mmol/L (136-145)
[2018-02-27 08:51] LABS: ALKALINE PHOSPHATASE 111 U/L (45-117); PHOSPHORUS 3.6 mg/dl (2.5-4.9)
== END ==
LOC: C.LABUPNIT 08:21
PROVIDERS: ATTEND Nurse Practitioner Family
DX: I10 Essential (primary) hypertension (principal); D64.9 Anemia, unspecified; M62.81 Muscle weakness (generalized)

== ENCOUNTER → 2018-03-01 | Outpatient (CLI) | payer OTHER ==
[2018-03-01 10:22] LABS: POTASSIUM 3.7 mmol/L (3.5-5.1)
== END | disposition home or self-care (01) ==
LOC: C.LABUPNIT 09:57
PROVIDERS: ATTEND Nurse Practitioner Family
DX: E87.6 Hypokalemia (principal)

== ENCOUNTER → 2018-03-02 | Outpatient (CLI) | payer OTHER | END | disposition home or self-care (01) | LOC: C.LABUPNIT 08:12 | PROVIDERS: ATTEND Nurse Practitioner Family | DX: E87.8 Other disorders of electrolyte and fluid balance, not elsewhere classified (principal) ==

== ENCOUNTER → 2018-03-06 | Outpatient (CLI) | payer OTHER ==
[2018-03-06 08:45] LABS: HEMATOCRIT 36.4 % (37-47); HEMOGLOBIN 11.8 g/dL (12.0-16.0); MEAN CELL VOLUME 91.7 fL (80-100); MEAN CORPUSCULAR HEMOGLOBIN 29.7 pg (25-34); MEAN CORPUSCULAR HGB CONC 32.4 g/dl (32-36); MEAN PLATELET VOLUME 10.1 fL (7.4-10.4); PLATELET COUNT 346 K/uL (130-400); RED CELL DISTRIBUTION WIDTH CV 15.7 % (11.5-14.5); RED CELL DISTRIBUTION WIDTH SD 52.8 fL (36.4-46.3); WHITE BLOOD COUNT 9.93 K/uL (4.8-10.8)
[2018-03-06 08:52] LABS: BLOOD UREA NITROGEN 21 mg/dl (7-18); CALCIUM 8.6 mg/dl (8.5-10.1); CARBON DIOXIDE 29 mmol/L (21-32); CREATININE 0.47 mg/dl (0.60-1.20); GLUCOSE 70 mg/dl (70-99); POTASSIUM 3.5 mmol/L (3.5-5.1); SODIUM 144 mmol/L (136-145)
== END ==
LOC: C.LABUPNIT 08:31
PROVIDERS: ATTEND Nurse Practitioner Family
DX: D64.9 Anemia, unspecified (principal); I10 Essential (primary) hypertension

== ENCOUNTER → 2018-03-12 | Outpatient (CLI) | payer OTHER ==
[2018-03-12 12:10] LABS: HEMATOCRIT 30.1 % (37-47); HEMOGLOBIN 9.7 g/dL (12.0-16.0); MEAN CELL VOLUME 91.8 fL (80-100); MEAN CORPUSCULAR HEMOGLOBIN 29.6 pg (25-34); MEAN CORPUSCULAR HGB CONC 32.2 g/dl (32-36); MEAN PLATELET VOLUME 10.3 fL (7.4-10.4); PLATELET COUNT 301 K/uL (130-400); RED CELL DISTRIBUTION WIDTH CV 15.5 % (11.5-14.5); RED CELL DISTRIBUTION WIDTH SD 52.3 fL (36.4-46.3); WHITE BLOOD COUNT 17.18 K/uL (4.8-10.8)
[2018-03-12 12:25] LABS: ALKALINE PHOSPHATASE 133 U/L (45-117); ALT/SGPT 133 U/L (12-78); AST/SGOT 79 U/L (15-37); BLOOD UREA NITROGEN 27 mg/dl (7-18); CALCIUM 7.1 mg/dl (8.5-10.1); CARBON DIOXIDE 26 mmol/L (21-32); CREATININE 0.91 mg/dl (0.60-1.20); GLUCOSE 389 mg/dl (70-99); POTASSIUM 3.5 mmol/L (3.5-5.1); SODIUM 138 mmol/L (136-145); TOTAL PROTEIN 5.6 gm/dl (6.4-8.2)
[2018-03-12 12:28] LABS: BASO % 0.1 %; BASO ABS # 0.01 K/uL (0-0.2); EOS % 0.2 %; EOS ABS # 0.03 K/uL (0-0.5); IG# 0.06 K/uL (0.00-0.02); LYMPH % 2.4 %; LYMPH ABS # 0.41 K/uL (1.2-3.4); MONO % 2.4 %; MONO ABS # 0.42 K/uL (0.11-0.59); NEUT % 94.6 %; NEUT ABS # 16.25 K/uL (1.4-6.5)
[2018-03-12 14:01] LABS: HEMOGLOBIN A1C 5.7 % (4.5-5.6)
== END | disposition home or self-care (01) ==
LOC: C.LABUPNIT 11:59
PROVIDERS: ATTEND Nurse Practitioner Family
DX: R50.9 Fever, unspecified (principal); R41.82 Altered mental status, unspecified

== ENCOUNTER → 2018-03-13 | Outpatient (CLI) | payer OTHER ==
[2018-03-13 08:53] LABS: ALBUMIN 2.3 gm/dl (3.4-5.0); ALT/SGPT 255 U/L (12-78); AST/SGOT 260 U/L (15-37); BLOOD UREA NITROGEN 36 mg/dl (7-18); CALCIUM 8.7 mg/dl (8.5-10.1); CARBON DIOXIDE 28 mmol/L (21-32); CREATININE 0.88 mg/dl (0.60-1.20); GLUCOSE 105 mg/dl (70-99); POTASSIUM 3.3 mmol/L (3.5-5.1); SODIUM 142 mmol/L (136-145)
[2018-03-13 08:55] LABS: ALKALINE PHOSPHATASE 206 U/L (45-117); TOTAL PROTEIN 6.7 gm/dl (6.4-8.2)
[2018-03-13 09:20] LABS: HEMATOCRIT 39.2 % (37-47); HEMOGLOBIN 12.7 g/dL (12.0-16.0); MEAN CORPUSCULAR HEMOGLOBIN 29.5 pg (25-34); MEAN CORPUSCULAR HGB CONC 32.4 g/dl (32-36); MEAN PLATELET VOLUME 10.5 fL (7.4-10.4); PLATELET COUNT 292 K/uL (130-400); RED CELL DISTRIBUTION WIDTH CV 15.6 % (11.5-14.5); RED CELL DISTRIBUTION WIDTH SD 52.6 fL (36.4-46.3); WHITE BLOOD COUNT 13.75 K/uL (4.8-10.8)
[2018-03-13 09:40] LABS: HEMOGLOBIN A1C 5.7 % (4.5-5.6)
== END | disposition home or self-care (01) ==
LOC: C.LABUPNIT 07:58
PROVIDERS: ATTEND Nurse Practitioner Family
DX: I10 Essential (primary) hypertension (principal); L89.154 Pressure ulcer of sacral region, stage 4; R73.09 Other abnormal glucose

== ENCOUNTER → 2018-03-14 | Outpatient (CLI) | payer OTHER ==
[2018-03-14 09:47] LABS: BASO % 0.1 %; BASO ABS # 0.02 K/uL (0-0.2); EOS ABS # 0.15 K/uL (0-0.5); HEMATOCRIT 33.4 % (37-47); HEMOGLOBIN 10.6 g/dL (12.0-16.0); IG# 0.03 K/uL (0.00-0.02); LYMPH % 5.7 %; LYMPH ABS # 0.85 K/uL (1.2-3.4); MEAN CORPUSCULAR HEMOGLOBIN 29.5 pg (25-34); MEAN CORPUSCULAR HGB CONC 31.7 g/dl (32-36); MEAN PLATELET VOLUME 10.9 fL (7.4-10.4); MONO % 3.3 %; NEUT % 89.7 %; NEUT ABS # 13.38 K/uL (1.4-6.5); PLATELET COUNT 266 K/uL (130-400); RED CELL DISTRIBUTION WIDTH CV 15.4 % (11.5-14.5); RED CELL DISTRIBUTION WIDTH SD 52.3 fL (36.4-46.3); WHITE BLOOD COUNT 14.93 K/uL (4.8-10.8)
[2018-03-14 10:00] LABS: ALBUMIN 2.1 gm/dl (3.4-5.0); BLOOD UREA NITROGEN 18 mg/dl (7-18); CALCIUM 8.1 mg/dl (8.5-10.1); CARBON DIOXIDE 26 mmol/L (21-32); CREATININE 0.49 mg/dl (0.60-1.20); GLUCOSE 60 mg/dl (70-99); POTASSIUM 3.1 mmol/L (3.5-5.1); SODIUM 142 mmol/L (136-145)
[2018-03-14 10:02] LABS: ALKALINE PHOSPHATASE 213 U/L (45-117); ALT/SGPT 224 U/L (12-78); AST/SGOT 120 U/L (15-37); TOTAL PROTEIN 6.3 gm/dl (6.4-8.2)
== END ==
LOC: C.LABUPNIT 09:10
PROVIDERS: ATTEND Nurse Practitioner Family
DX: N39.0 Urinary tract infection, site not specified (principal); R94.5 Abnormal results of liver function studies; I10 Essential (primary) hypertension

== ENCOUNTER → 2018-03-15 | Outpatient (CLI) | payer OTHER ==
[2018-03-15 10:05] LABS: BASO % 0.1 %; BASO ABS # 0.02 K/uL (0-0.2); EOS % 2.1 %; EOS ABS # 0.29 K/uL (0-0.5); HEMATOCRIT 38.3 % (37-47); IG# 0.03 K/uL (0.00-0.02); LYMPH % 12.9 %; LYMPH ABS # 1.75 K/uL (1.2-3.4); MEAN CELL VOLUME 94.3 fL (80-100); MEAN CORPUSCULAR HEMOGLOBIN 29.6 pg (25-34); MEAN CORPUSCULAR HGB CONC 31.3 g/dl (32-36); MEAN PLATELET VOLUME 10.7 fL (7.4-10.4); MONO % 4.6 %; MONO ABS # 0.62 K/uL (0.11-0.59); NEUT % 80.1 %; NEUT ABS # 10.88 K/uL (1.4-6.5); PLATELET COUNT 307 K/uL (130-400); RED CELL DISTRIBUTION WIDTH CV 15.5 % (11.5-14.5); RED CELL DISTRIBUTION WIDTH SD 53.9 fL (36.4-46.3); WHITE BLOOD COUNT 13.59 K/uL (4.8-10.8)
[2018-03-15 10:31] LABS: ALT/SGPT 209 U/L (12-78); AST/SGOT 83 U/L (15-37); BLOOD UREA NITROGEN 10 mg/dl (7-18); CALCIUM 9.2 mg/dl (8.5-10.1); CARBON DIOXIDE 26 mmol/L (21-32); CREATININE 0.48 mg/dl (0.60-1.20); GLUCOSE 55 mg/dl (70-99); SODIUM 138 mmol/L (136-145)
== END ==
LOC: C.LABUPNIT 09:04
PROVIDERS: ATTEND Nurse Practitioner Family
DX: D64.9 Anemia, unspecified (principal); R74.0 Nonspecific elevation of levels of transaminase and lactic acid dehydrogenase [LDH]; I10 Essential (primary) hypertension

== ENCOUNTER → 2018-03-16 | Outpatient (CLI) | payer OTHER ==
[2018-03-16 10:09] LABS: BASO % 0.2 %; BASO ABS # 0.02 K/uL (0-0.2); EOS % 2.5 %; EOS ABS # 0.22 K/uL (0-0.5); HEMATOCRIT 36.5 % (37-47); HEMOGLOBIN 11.5 g/dL (12.0-16.0); IG# 0.01 K/uL (0.00-0.02); LYMPH % 18.6 %; LYMPH ABS # 1.66 K/uL (1.2-3.4); MEAN CELL VOLUME 92.9 fL (80-100); MEAN CORPUSCULAR HEMOGLOBIN 29.3 pg (25-34); MEAN CORPUSCULAR HGB CONC 31.5 g/dl (32-36); MEAN PLATELET VOLUME 11.2 fL (7.4-10.4); MONO % 5.7 %; MONO ABS # 0.51 K/uL (0.11-0.59); NEUT % 72.9 %; NEUT ABS # 6.51 K/uL (1.4-6.5); PLATELET COUNT 309 K/uL (130-400); RED CELL DISTRIBUTION WIDTH CV 15.1 % (11.5-14.5); RED CELL DISTRIBUTION WIDTH SD 51.4 fL (36.4-46.3); WHITE BLOOD COUNT 8.93 K/uL (4.8-10.8)
[2018-03-16 10:17] LABS: ALBUMIN 2.3 gm/dl (3.4-5.0); ALT/SGPT 148 U/L (12-78); AST/SGOT 44 U/L (15-37); BLOOD UREA NITROGEN 12 mg/dl (7-18); CALCIUM 9.2 mg/dl (8.5-10.1); CARBON DIOXIDE 25 mmol/L (21-32); CREATININE 0.38 mg/dl (0.60-1.20); GLUCOSE 66 mg/dl (70-99); POTASSIUM 3.7 mmol/L (3.5-5.1); SODIUM 139 mmol/L (136-145)
[2018-03-16 10:20] LABS: ALKALINE PHOSPHATASE 172 U/L (45-117); TOTAL PROTEIN 6.7 gm/dl (6.4-8.2)
--- NOTE | 2018-03-21 14:21 | CODING QUERY MEDICAL NECESSITY ---
CQTREATMENT RENDERED WITHOUT A DIAGNOSIS To promote full compliance with coding requirements relating to patient care, physician participation is requested in all cases of steward/stewardess bath uncertainty. Please assist us with providing a diagnosis/symptom for the test(s) below: A diagnosis/symptom was not documented on your Order. A valid diagnosis/symptom is required to bill all insurances. Please remember that we are unable to code a diagnosis of rule out, probable, possible, questionable, or suspected. Tests that require a diagnosis: DOS 03/16/18 COMPLETE BLOOD COUNT TEST MAGNESIUM TESTING COMPREHENSIVE METABOLIC TEST RESIDENT OF [facility] Provider Signature: Date: Thank you Roma [facility] Information Management Once completed, please kindly fax back to [phone] For questions please call [phone]
== END | disposition home or self-care (01) ==
LOC: C.LABUPNIT 08:40
PROVIDERS: ATTEND Nurse Practitioner Family
DX: J06.9 Acute upper respiratory infection, unspecified (principal)

== ENCOUNTER → 2018-03-21 | Outpatient (CLI) | payer OTHER ==
[2018-03-21 08:39] LABS: BASO % 0.3 %; BASO ABS # 0.02 K/uL (0-0.2); EOS % 5.1 %; HEMATOCRIT 37.1 % (37-47); HEMOGLOBIN 11.3 g/dL (12.0-16.0); IG# 0.02 K/uL (0.00-0.02); LYMPH % 32.7 %; LYMPH ABS # 2.57 K/uL (1.2-3.4); MEAN CELL VOLUME 92.3 fL (80-100); MEAN CORPUSCULAR HEMOGLOBIN 28.1 pg (25-34); MEAN CORPUSCULAR HGB CONC 30.5 g/dl (32-36); MONO % 5.6 %; MONO ABS # 0.44 K/uL (0.11-0.59); PLATELET COUNT 409 K/uL (130-400); RED CELL DISTRIBUTION WIDTH SD 50.5 fL (36.4-46.3); WHITE BLOOD COUNT 7.85 K/uL (4.8-10.8)
[2018-03-21 08:46] LABS: ALBUMIN 2.3 gm/dl (3.4-5.0); ALT/SGPT 75 U/L (12-78); AST/SGOT 56 U/L (15-37); BLOOD UREA NITROGEN 22 mg/dl (7-18); CARBON DIOXIDE 27 mmol/L (21-32); CREATININE 0.45 mg/dl (0.60-1.20); GLUCOSE 66 mg/dl (70-99); POTASSIUM 3.9 mmol/L (3.5-5.1); SODIUM 142 mmol/L (136-145)
[2018-03-21 08:48] LABS: ALKALINE PHOSPHATASE 114 U/L (45-117); TOTAL PROTEIN 6.4 gm/dl (6.4-8.2)
== END ==
LOC: C.LABUPNIT 08:16
PROVIDERS: ATTEND Nurse Practitioner Family
DX: G35 Multiple sclerosis (principal); D64.9 Anemia, unspecified

== ENCOUNTER → 2018-03-26 | Outpatient (CLI) | payer OTHER ==
[2018-03-26 09:33] LABS: HEMATOCRIT 36.1 % (37-47); HEMOGLOBIN 11.6 g/dL (12.0-16.0); MEAN CELL VOLUME 92.1 fL (80-100); MEAN CORPUSCULAR HEMOGLOBIN 29.6 pg (25-34); MEAN CORPUSCULAR HGB CONC 32.1 g/dl (32-36); MEAN PLATELET VOLUME 10.3 fL (7.4-10.4); PLATELET COUNT 385 K/uL (130-400); RED CELL DISTRIBUTION WIDTH CV 15.5 % (11.5-14.5); RED CELL DISTRIBUTION WIDTH SD 51.8 fL (36.4-46.3); WHITE BLOOD COUNT 8.83 K/uL (4.8-10.8)
[2018-03-26 09:44] LABS: ALBUMIN 2.5 gm/dl (3.4-5.0); ALT/SGPT 181 U/L (12-78); AST/SGOT 236 U/L (15-37); BLOOD UREA NITROGEN 23 mg/dl (7-18); CALCIUM 8.9 mg/dl (8.5-10.1); CARBON DIOXIDE 26 mmol/L (21-32); CREATININE 0.46 mg/dl (0.60-1.20); GLUCOSE 67 mg/dl (70-99); POTASSIUM 4.1 mmol/L (3.5-5.1); SODIUM 141 mmol/L (136-145)
[2018-03-26 09:47] LABS: ALKALINE PHOSPHATASE 111 U/L (45-117); TOTAL PROTEIN 6.5 gm/dl (6.4-8.2)
== END ==
LOC: C.LABUPNIT 09:05
PROVIDERS: ATTEND Nurse Practitioner Family
DX: I10 Essential (primary) hypertension (principal); D64.9 Anemia, unspecified

== ENCOUNTER → 2018-03-30 | Outpatient (CLI) | payer OTHER ==
[2018-03-30 09:16] LABS: ALBUMIN 2.4 gm/dl (3.4-5.0); ALKALINE PHOSPHATASE 135 U/L (45-117); ALT/SGPT 277 U/L (12-78); AST/SGOT 160 U/L (15-37); TOTAL PROTEIN 6.5 gm/dl (6.4-8.2)
== END ==
LOC: C.LABUPNIT 08:15
PROVIDERS: ATTEND Nurse Practitioner Family
DX: R94.5 Abnormal results of liver function studies (principal)

== ENCOUNTER → 2018-04-03 | Outpatient (CLI) | payer OTHER ==
[2018-04-03 10:19] LABS: ALBUMIN 2.6 gm/dl (3.4-5.0); ALKALINE PHOSPHATASE 127 U/L (45-117); ALT/SGPT 227 U/L (12-78); AST/SGOT 197 U/L (15-37); TOTAL PROTEIN 6.7 gm/dl (6.4-8.2)
== END ==
LOC: C.LABUPNIT 09:18
PROVIDERS: ATTEND Nurse Practitioner Family
DX: R94.5 Abnormal results of liver function studies (principal)

== ENCOUNTER → 2018-05-29 | Outpatient (CLI) | payer OTHER ==
[~2018-05-29] MED LIST changes: +ASPI-390 PO; +ENOX30IN4 SQ; +HPRF5 IV; +JUICE SUPPLEMENT PO; +KETO30IN6 IM; +OXY/15 PO; +POTA-639 PO
--- NOTE | 2018-06-08 15:48 | CODING QUERY NO DIAGNOSIS ---
TREATMENT RENDERED WITHOUT A DIAGNOSIS 47 To promote full compliance with coding requirements relating to patient care, physician participation is requested in all cases of professional fee coder uncertainty. Please assist us with providing a diagnosis/symptom for the test(s) below: A diagnosis/symptom was not documented on your Order. A valid diagnosis/symptom is required to bill all insurances. Please remember that we are unable to code a diagnosis of rule out, probable, possible, questionable, or suspected. DOS 05/29/18 Tests that require a diagnosis: * URINE CULTURE DIAGNOSIS: * UA CLEAN CATCH DIAGNOSIS: Provider Signature: Date: Thank you Lizz Hale Health Information Management Once completed, please kindly fax back to [phone] For questions please call [phone]
== END ==
LOC: C.LABUPNIT 12:43
PROVIDERS: ATTEND Nurse Practitioner Family
DX: N39.0 Urinary tract infection, site not specified (principal)

== ENCOUNTER 2018-05-30 11:12 | Inpatient (IN) | payer OTHER ==
[~2018-05-30] VITALS: Ht 160 cm; Wt 43.3 kg
[~2018-05-30 11:12] MED LIST changes: -ASPI-390 PO; -ENOX30IN4 SQ; -HPRF5 IV; -JUICE SUPPLEMENT PO; -KETO30IN6 IM; -OXY/15 PO; -POTA-639 PO
[2018-05-30] MEDS ORDERED: SODIUM CHLORIDE 0.9% 1000ML 1,000 ML IV STA (11:29)
[2018-05-30] MEDS ORDERED: PIPERACILLIN/TAZOBACTAM 4.5 GM/100ML D5W IV STA (11:29)
[2018-05-30 11:52] LABS: HEMATOCRIT 40.3 % (37-47); HEMOGLOBIN 12.9 g/dL (12.0-16.0); MEAN CELL VOLUME 93.9 fL (80-100); MEAN CORPUSCULAR HEMOGLOBIN 30.1 pg (25-34); MEAN PLATELET VOLUME 11.1 fL (7.4-10.4); PLATELET COUNT 270 K/uL (130-400); RED CELL DISTRIBUTION WIDTH SD 61.4 fL (36.4-46.3); WHITE BLOOD COUNT 29.89 K/uL (4.8-10.8)
[2018-05-30 12:02] LABS: INR 1.2 (0.9-1.1); PTT PATIENT 36.2 SECONDS (21.0-31.0)
--- NOTE | 2018-05-30 12:05 | DIAGNOSTIC IMAGING REPORT ---
CHEST ONE VIEW PORTABLE HISTORY: 73 years-old Female Evaluate Fever/Sepsis acute fever with sepsis COMPARISON: CT abdomen and pelvis 04/10/2018, chest radiograph 01/23/2018 TECHNIQUE: Portable AP view of the chest FINDINGS: Cardiac silhouette is normal in size. Calcification of the aorta. Left subclavian Nqlxsl-y-[id number] catheter is noted with distal tip in the distribution of the SVC. No pneumothorax or large pleural effusion. Mild left hemidiaphragm elevation. No overt pulmonary edema. Large consolidative opacity with ill-defined margins involves the right lung base measuring up to 7.8 cm. Centrally within this consolidation there is a 2.5 x 3.2 cm lucency. Since of posterior tatiana and screw fusion hardware of the spine. The bullous appearance of the bones. Post surgical changes about the epigastric abdomen. IMPRESSION: Large consolidative opacity about the right lung base with central lucency is suspicious for cavitary pneumonia. Close follow-up is recommended. The above report was generated using voice recognition software. It may contain grammatical, syntax or spelling errors. Electronically signed by: Dustin Johnson M.D. 05/30/2018 12:04 PM Dictated Date/Time: 05/30/2018 12:01 PM
[2018-05-30 12:18] LABS: BASO % 0.1 %; BASO ABS # 0.02 K/uL (0-0.2); IG# 0.81 K/uL (0.00-0.02); LYMPH % 2.3 %; LYMPH ABS # 0.69 K/uL (1.2-3.4); MONO % 5.3 %; MONO ABS # 1.59 K/uL (0.11-0.59); NEUT % 89.6 %; NEUT ABS # 26.78 K/uL (1.4-6.5)
[2018-05-30 12:26] LABS: ALKALINE PHOSPHATASE 173 U/L (45-117); ALT/SGPT 31 U/L (12-78); BLOOD UREA NITROGEN 39 mg/dl (7-18); CALCIUM 8.2 mg/dl (8.5-10.1); CARBON DIOXIDE 23 mmol/L (21-32); CKMB < 1.0 ng/ml (0.5-3.6); CREATININE 1.51 mg/dl (0.60-1.20); GLUCOSE 87 mg/dl (70-99); LIPASE 33 U/L (73-393); TOTAL PROTEIN 6.5 gm/dl (6.4-8.2)
--- NOTE | 2018-05-30 12:38 | DIAGNOSTIC IMAGING REPORT ---
ABDOMEN AND PELVIS CT WITHOUT CONTRAST CT DOSE: 222.62 mGycm HISTORY: Acute fever with sepsis Evaluate Fever/Sepsis, LLQ tender TECHNIQUE: Multiaxial CT images of the abdomen and pelvis were performed without contrast. A dose lowering technique was utilized adhering to the principles of ALARA. COMPARISON STUDY: CT abdomen and pelvis 04/10/2018, chest radiograph of same day FINDINGS: Large consolidative opacity about the right lower lobe is partially imaged measuring up to 7.2 x 5.9 cm. Centrally along the anterior margin of this consolidation is a cavitation measuring 2.9 x 1.6 cm. These findings are new from comparison study. Large opacity of stairs the previously noted groundglass density. Subsegmental predominantly linear consolidative opacities about the left lower lobe suggest areas of scarring with atelectasis. 5 mm solid nodule of the lateral segment right middle lobe is unchanged. Study is motion degraded. No pneumatosis or pneumoperitoneum. Imaged inferior cardiac chambers are unremarkable. Evaluation of the solid abdominal organs is limited without the use of IV contrast. Within the limitations of the exam, the liver, spleen and right adrenal gland are unremarkable. Moderate thickening of the left adrenal gland. At least moderate generalized pancreatic atrophy. Prior cholecystectomy. Mild dilation of the common bile duct is likely from physiologic postsurgical state. Large cyst with peripheral calcifications noted about the left kidney measuring up to 5.8 x 5.6 cm. Calcifications about the left kidney suggests nonobstructing nephrolithiasis. Right kidney is unremarkable. No shift uropathy. Vera catheter is noted within the bladder lumen. Multiple bladder calculi redemonstrated measuring up to 13 mm. There is a large volume of air within the urinary bladder lumen. Uterus appears be surgically absent. No adnexal mass lesions. Extensive calcification of the aorta without aneurysm. No pathologically enlarged lymph nodes. Postsurgical changes of the stomach suggesting prior gastric bypass. There is no bowel obstruction identified. Left lower quadrant ostomy. Moderate wall thickening circumferentially about the rectum. There are several prominent loops of small bowel within the lower abdomen and pelvis measuring up to 2.7 cm which are fluid-filled with air-fluid levels. Subcutaneous emphysema about the anterior abdominal wall, likely secondary to injection sites. Extensive posterior tatiana and screw fusion hardware about the thoracolumbar spine. Unchanged positioning of the hardware. Corpectomy changes about the lumbar spine. Chronic changes about the posterior right iliac bone. Hardware about the bilateral proximal femora. Large decubitus ulcer measuring 4.2 cm transversely redemonstrated. Mild posterior cortical obstruction of the mid posterior sacrum redemonstrated. IMPRESSION: 1. Large partially imaged consolidation about the right lower lobe with central cavitation suggests cavitary pneumonia, new from 04/10/2018. Close follow-up is needed. 2. Nonobstructive bowel gas pattern. Several loops of small bowel within the lower abdomen and pelvis are fluid-filled with air-fluid levels suggesting enteritis or ileus. 3. Nonobstructing left nephrolithiasis with multiple urinary bladder calculi also noted. 4. Vera catheter in place with large volume of intraluminal air within the urinary bladder, likely secondary to instrumentation. Correlate with urinalysis to exclude cystitis. 5. Large decubitus ulcer with mild cortical erosion about the sacrum redemonstrated suspicious for osteomyelitis. 6. Additional findings as above. Electronically signed by: Dustin Johnson M.D. 05/30/2018 12:36 PM Dictated Date/Time: 05/30/2018 12:20 PM
[2018-05-30 12:39] LABS: AST/SGOT 36 U/L (15-37); POTASSIUM 4.3 mmol/L (3.5-5.1); SODIUM 143 mmol/L (136-145)
[2018-05-30] MEDS ORDERED: POTTAB2 PO (12:57)
[2018-05-30] MEDS ORDERED: ENOX30IN4 SQ (12:57)
[2018-05-30] MEDS ORDERED: HPRF5 IV (12:57)
[2018-05-30] MEDS ORDERED: POTA-639 PO (12:57)
[2018-05-30] MEDS ORDERED: ASPI-390 PO (12:57)
[2018-05-30] MEDS ORDERED: OXY/15 PO (12:57)
[2018-05-30] MEDS ORDERED: JUICE SUPPLEMENT PO (12:57)
[2018-05-30] MEDS ORDERED: KETO30IN6 IM (12:57)
[2018-05-30] MEDS ORDERED: VANCOMYCIN 1GM ED/ASU OMNICELL IV STA (13:52)
--- NOTE | 2018-05-30 14:10 | EMERGENCY ROOM VISIT NOTE ---
History Report prepared by Fidencio: Kirti Wade Under the Supervision of: Dr. Javier Temple D.O. First contact with patient: 11:24 Chief Complaint: ALTERED MENTAL STATUS Stated Complaint: CONFUSION History of Present Illness The patient is a 73 year old female who presents to the Emergency Room with persistent altered mental status starting 0800 this morning. The patient presents to the ED by EMS from [facility]. Staff noticed that she was having difficulty picking up her orange juice this morning. Her speech was sounded garbled. She was diagnosed with a UTI this morning. Her notes that she becomes weak and confused with UTIs. She denies having any pain. The history is limited secondary to patient's altered mental status. Source of History: patient, nursing staff History Limited By: AMS Onset: 0800 this morning Position: other (mental status) Quality: other (altered) Timing: other (persistent) Associated Symptoms: + weakness Note: Pt had garbled speech. Review of Systems Limited secondary to patient's altered mental status Past Medical & Surgical Medical Problems: (1) Acute hepatitis (2) Altered mental status (3) Altered mental status, unspecified (4) Benign hypertension (5) Chronic peptic ulcer (6) Hysterectomy (7) Intertrochanteric fracture of right hip (8) Intertrochanteric fracture of right hip (9) Migraine (10) Multiple sclerosis (11) Multiple sclerosis (12) Multiple sclerosis exacerbation (13) non cardiac chest pain related to gi (14) Sepsis (15) STAPHYLOCOCCAL SEPTICEMIA, NEC (16) UTI (urinary tract infection) Surgical Problems: (1) S/P partial gastrectomy Family History Breast cancer Diabetes mellitus FH: cholecystectomy FHx: heart disease Hypertension Social History Smoking Status: Former Smoker Alcohol Use: none Drug Use: none Marital Status: Housing Status: retirement Occupation Status: retired Current/Historical Medications Scheduled Amitriptyline Hcl (Elavil), 75 MG PO HS Ascorbic Acid (Vitamin C), 500 MG PO DAILY Cranberry (Vaccinium Macrocarp (Cranberry), 450 MG PO DAILY Enoxaparin (Lovenox), 30 MG SQ QAM Gabapentin (Gabapentin), 800 MG PO TID Heparin Sod (Porcine) (Heparin 100 Unit/Ml 5ML Flush), 5 ML IV DAILY Midodrine Hcl (Midodrine Hcl), 5 MG PO TID Multivitamins/Minerals (Mvi With Minerals), 1 TAB PO DAILY Pantoprazole (Pantoprazole Sodium), 40 MG PO BID Pot Phosphate Monobasic W/ Sod (Phospha 250 Neutral), 1 TAB PO QID Potassium Ext Rel (Klor-Con), 40 MEQ PO BID Topiramate (Topiramate), 25 MG PO BID [Juice Supplement], 1 CAN PO QID Scheduled PRN Acetaminophen (Tylenol), 1 SUPP CO Q6H PRN for MILD PAIN OR FEVER Acetaminophen Tab (Tylenol), 325 MG PO DAILY PRN for Pain or Fever Bkmkmeu-Igtwwswmdiocq-Xwpnnxow (Excedrin Migraine), 1 TAB PO Q6H PRN for Migraine Ketorolac Tromethamine (Ketorolac Tromethamine), 30 MG IM DAILY PRN for Migraine Meclizine HCl (Meclizine HCl), 12.5 MG PO Q8 PRN for Dizziness or Vertigo Ondansetron Hcl (Zofran), 4 MG PO Q8H PRN for Nausea Oxycodone Hcl (Oxycodone Hcl), 15 MG PO Q4H PRN for Pain Sumatriptan Succinate (Imitrex), 100 MG PO UD PRN for Migraine Allergies Coded Allergies: Morphine (Verified Adverse Reaction, Intermediate, " MAKES ME MEAN" - CONFUSION, 01/23/18) Physical Exam Vital Signs Date Time Temp Pulse Resp B/P (MAP) Pulse Ox O2 Delivery O2 Flow Rate FiO2 05/30/18 13:30 116 20 131/81 95 Nasal Cannula 2.0 05/30/18 12:17 127/72 05/30/18 12:04 127 05/30/18 11:42 132 26 93 Room Air 05/30/18 11:24 37.4 130 20 112/78 93 Room Air 05/30/18 11:17 112/78 Physical Exam CONSTITUTIONAL/VITAL SIGNS: Reviewed / noted above. GENERAL: Non-toxic in appearance. INTEGUMENTARY: Warm, dry, and [place]. Wound vac on sacrum, mild surrounding erythema. HEAD: Normocephalic. EYES: without scleral icterus or trauma. ENT/OROPHARYNX: clear and moist. LYMPHADENOPATHY/NECK: Is supple without lymphadenopathy or meningismus. RESPIRATORY: Lungs clear and equal. CARDIOVASCULAR: Tachycardic rate and regular rhythm. GI/ABDOMEN: Soft, tenderness to palpation of the LLQ. Colostomy is present, light brown stool. No organomegaly or pulsatile mass. No rebound or guarding. EXTREMITIES: Warm and well perfused. BACK: No CVA tenderness. NEUROLOGICAL: Intact without focal deficits. PSYCHIATRIC: normal affect. MUSCULOSKELETAL: Atrophy of lower extremities from bedbound state. Medical Decision & Procedures ER Provider Diagnostic Interpretation: X ray results and stated below per my interpretation and radiology interpretation. Radiology results as stated below per my review and radiologist interpretation: CHEST ONE VIEW PORTABLE HISTORY: 73 years-old Female Evaluate Fever/Sepsis acute fever with sepsis COMPARISON: CT abdomen and pelvis 04/10/2018, chest radiograph 01/23/2018 TECHNIQUE: Portable AP view of the chest FINDINGS: Cardiac silhouette is normal in size. Calcification of the aorta. Left subclavian Ccudsa-m-Azav catheter is noted with distal tip in the distribution of the SVC. No pneumothorax or large pleural effusion. Mild left hemidiaphragm elevation. No overt pulmonary edema. Large consolidative opacity with ill-defined margins involves the right lung base measuring up to 7.8 cm. Centrally within this consolidation there is a 2.5 x 3.2 cm lucency. Since of posterior tatiana and screw fusion hardware of the spine. The bullous appearance of the bones. Post surgical changes about the epigastric abdomen. IMPRESSION: Large consolidative opacity about the right lung base with central lucency is suspicious for cavitary pneumonia. Close follow-up is recommended. The above report was generated using voice recognition software. It may contain grammatical, syntax or spelling errors. Electronically signed by: Dustin Johnson M.D. 05/30/2018 12:04 PM Dictated Date/Time: 05/30/2018 12:01 PM ABDOMEN AND PELVIS CT WITHOUT CONTRAST CT DOSE: 222.62 mGycm HISTORY: Acute fever with sepsis Evaluate Fever/Sepsis, LLQ tender TECHNIQUE: Multiaxial CT images of the abdomen and pelvis were performed without contrast. A dose lowering technique was utilized adhering to the principles of ALARA. COMPARISON STUDY: CT abdomen and pelvis 04/10/2018, chest radiograph of same day FINDINGS: Large consolidative opacity about the right lower lobe is partially imaged measuring up to 7.2 x 5.9 cm. Centrally along the anterior margin of this consolidation is a cavitation measuring 2.9 x 1.6 cm. These findings are new from comparison study. Large opacity of stairs the previously noted groundglass density. Subsegmental predominantly linear consolidative opacities about the left lower lobe suggest areas of scarring with atelectasis. 5 mm solid nodule of the lateral segment right middle lobe is unchanged. Study is motion degraded. No pneumatosis or pneumoperitoneum. Imaged inferior cardiac chambers are unremarkable. Evaluation of the solid abdominal organs is limited without the use of IV contrast. Within the limitations of the exam, the liver, spleen and right adrenal gland are unremarkable. Moderate thickening of the left adrenal gland. At least moderate generalized pancreatic atrophy. Prior cholecystectomy. Mild dilation of the common bile duct is likely from physiologic postsurgical state. Large cyst with peripheral calcifications noted about the left kidney measuring up to 5.8 x 5.6 cm. Calcifications about the left kidney suggests nonobstructing nephrolithiasis. Right kidney is unremarkable. No shift uropathy. Vera catheter is noted within the bladder lumen. Multiple bladder calculi redemonstrated measuring up to 13 mm. There is a large volume of air within the urinary bladder lumen. Uterus appears be surgically absent. No adnexal mass lesions. Extensive calcification of the aorta without aneurysm. No pathologically enlarged lymph nodes. Postsurgical changes of the stomach suggesting prior gastric bypass. There is no bowel obstruction identified. Left lower quadrant ostomy. Moderate wall thickening circumferentially about the rectum. There are several prominent loops of small bowel within the lower abdomen and pelvis measuring up to 2.7 cm which are fluid-filled with air-fluid levels. Subcutaneous emphysema about the anterior abdominal wall, likely secondary to injection sites. Extensive posterior tatiana and screw fusion hardware about the thoracolumbar spine. Unchanged positioning of the hardware. Corpectomy changes about the lumbar spine. Chronic changes about the posterior right iliac bone. Hardware about the bilateral proximal femora. Large decubitus ulcer measuring 4.2 cm transversely redemonstrated. Mild posterior cortical obstruction of the mid posterior sacrum redemonstrated. IMPRESSION: 1. Large partially imaged consolidation about the right lower lobe with central cavitation suggests cavitary pneumonia, new from 04/10/2018. Close follow-up is needed. 2. Nonobstructive bowel gas pattern. Several loops of small bowel within the lower abdomen and pelvis are fluid-filled with air-fluid levels suggesting enteritis or ileus. 3. Nonobstructing left nephrolithiasis with multiple urinary bladder calculi also noted. 4. Vera catheter in place with large volume of intraluminal air within the urinary bladder, likely secondary to instrumentation. Correlate with urinalysis to exclude cystitis. 5. Large decubitus ulcer with mild cortical erosion about the sacrum redemonstrated suspicious for osteomyelitis. 6. Additional findings as above. Electronically signed by: Dustin Johnson M.D. 05/30/2018 12:36 PM Dictated Date/Time: 05/30/2018 12:20 PM Laboratory Results 05/30/18 11:40 Red Blood Count 4.29, Mean Corpuscular Volume 93.9, Mean Corpuscular Hemoglobin 30.1, Mean Corpuscular Hemoglobin Concent 32.0, Mean Platelet Volume 11.1, Neutrophils (%) (Auto) 89.6, Lymphocytes (%) (Auto) 2.3, Monocytes (%) (Auto) 5.3, Eosinophils (%) (Auto) 0.0, Basophils (%) (Auto) 0.1, Neutrophils # (Auto) 26.78, Lymphocytes # (Auto) 0.69, Monocytes # (Auto) 1.59, Eosinophils # (Auto) 0.00, Basophils # (Auto) 0.02 05/30/18 11:40 Test 05/30/18 11:33 05/30/18 11:40 05/30/18 11:50 Urine Color YELLOW Urine Appearance SL CLOUDY (CLEAR) Urine pH 7.0 (4.5-7.5) Urine Specific [place] 1.015 (1.000-1.030) Urine Protein 1+ (NEG) Urine Glucose (UA) NEG (NEG) Urine Ketones NEG (NEG) Urine Occult Blood 1+ (NEG) Urine Nitrite NEG (NEG) Urine Bilirubin NEG (NEG) Urine Urobilinogen NEG (NEG) Urine Leukocyte Esterase MODERATE (NEG) Urine RBC 5-10 /hpf (0-4) Urine WBC >30 /hpf (0-5) Urine Epithelial Cells 0-5 /lpf (0-5) Urine Bacteria 4+ (NEG) White Blood Count 29.89 K/uL (4.8-10.8) Red Blood Count 4.29 M/uL (4.2-5.4) Hemoglobin 12.9 g/dL (12.0-16.0) Hematocrit 40.3 % (37-47) Mean Corpuscular Volume 93.9 fL (80-100) Mean Corpuscular Hemoglobin 30.1 pg (25-34) Mean Corpuscular Hemoglobin Concent 32.0 g/dl (32-36) Platelet Count 270 K/uL (130-400) Mean Platelet Volume 11.1 fL (7.4-10.4) Neutrophils (%) (Auto) 89.6 % Lymphocytes (%) (Auto) 2.3 % Monocytes (%) (Auto) 5.3 % Eosinophils (%) (Auto) 0.0 % Basophils (%) (Auto) 0.1 % Neutrophils # (Auto) 26.78 K/uL (1.4-6.5) Lymphocytes # (Auto) 0.69 K/uL (1.2-3.4) Monocytes # (Auto) 1.59 K/uL (0.11-0.59) Eosinophils # (Auto) 0.00 K/uL (0-0.5) Basophils # (Auto) 0.02 K/uL (0-0.2) RDW Standard Deviation 61.4 fL (36.4-46.3) RDW Coefficient of Variation 18.0 % (11.5-14.5) Immature Granulocyte % (Auto) 2.7 % Immature Granulocyte # (Auto) 0.81 K/uL (0.00-0.02) Toxic Vacuolation 1+ Dohle Bodies 1+ Spherocytes 1+ Prothrombin Time 12.1 SECONDS (9.0-12.0) Prothromb Time International Ratio 1.2 (0.9-1.1) Activated Partial Thromboplast Time 36.2 SECONDS (21.0-31.0) Partial Thromboplastin Ratio 1.4 Anion Gap 10.0 mmol/L (3-11) Estimated GFR () 39.9 Estimated GFR (Non- 34.4 BUN/Creatinine Ratio 25.6 (10-20) Calcium Level 8.2 mg/dl (8.5-10.1) Total Bilirubin 0.6 mg/dl (0.2-1) Direct Bilirubin 0.5 mg/dl (0-0.2) Aspartate Amino Transf (AST/SGOT) 36 U/L (15-37) Alanine Aminotransferase (ALT/SGPT) 31 U/L (12-78) Alkaline Phosphatase 173 U/L (45-117) Total Creatine Kinase 64 U/L (26-192) Creatine Kinase MB < 1.0 ng/ml (0.5-3.6) Creatine Kinase MB Ratio (0-3.0) Troponin I < 0.015 ng/ml (0-0.045) Total Protein 6.5 gm/dl (6.4-8.2) Albumin 2.0 gm/dl (3.4-5.0) Lipase 33 U/L (73-393) Lactic Acid Level 0.8 mmol/L (0.4-2.0) Laboratory results as stated above per my review. Medications Administered Medications (Trade) Dose Ordered Sig/Melvin Route Start Time Stop Time Status Last Admin Dose Admin Sodium Chloride 1,000 ml @ 999 mls/hr Q1H1M STAT IV 05/30/18 11:29 05/30/18 12:29 DC 05/30/18 11:29 999 MLS/HR Piperacillin Sod/ Tazobactam Sod (Zosyn Iv) 4.5 gm NOW STAT IV 05/30/18 11:29 05/30/18 11:33 DC 05/30/18 11:29 4.5 GM Vancomycin HCl (Vancomycin 1gm Ed/Asu Omnicell) 1 gm NOW STAT IV 05/30/18 13:52 05/30/18 13:54 DC 05/30/18 14:01 1 GM ECG Per My Interpretation Indication: altered mental status Rate (beats per minute): 133 Rhythm: sinus tachycardia Findings: PVC, ST depression (Lateral) Comparison ECG Date: 25-Jan-2018 Change: PVC new, ST depression old. ED Course 1124: Previous medical records were reviewed. The patient was evaluated in room B1. A complete history and physical examination was performed. 1129: Zosyn Iv 4.5 gm IV, Sodium Chloride 1000 ml @ 999 mls/hr IV. 1349: I discussed the patient's case with Dr. Forbes, [facility] [place]. The patient will be evaluated for further treatment and disposition. 1352: Vancomycin HCl 1 gm IV. Medical Decision Differentials include: Acute coronary syndrome, myocardial infarction, CVA, TIA , anemia, infection, pneumonia, UTI, pyelonephritis, poor nutrition, dehydration , electrolyte disturbance, and hypoglycemia. This is a 73-year-old female who presents to the ED with a chief complaint of weakness and confusion. The patient is a poor historian and is unable to speak. She does follow some commands. She was diagnosed with urinary tract infection this morning. She has not yet been started on medications. The patient also has a wound VAC on her sacral area. She also has a chronic colostomy. Physical exam as noted above. CBC is elevated with a white count of 29.9. BUN is 39 creatinine is 1.5. Troponin was negative. Urine is suggestive of UTI. Chest x-ray reveals a cavitary pneumonia. The patient's vital signs revealed a tachycardia but not febrile. She is not hypoxic. The patient was given IV Zosyn as well as IV vancomycin and IV fluids. She will be seen by the hospitalist for further inpatient evaluation and care. Medication Reconcilliation Current Medication List: was personally reviewed by me Blood Pressure Screening Patient's blood pressure: Normal blood pressure Consults Time Called: 1343 Consulting Physician: Dr. Forbes [facility] [place] Returned Call: [phone] Discussed the patient's case. The patient will be evaluated for further treatment and disposition. Impression Primary Impression: Cavitary pneumonia Critical Care I have personally spent 35 minutes of critical care time in the direct management of this patient. This includes bedside care, interpretation of diagnostic studies, and testing, discussion with consultants, patient, and family members, and other required patient management activities. Scribe Attestation The scribe's documentation has been prepared under my direction and personally reviewed by me in its entirety. I confirm that the note above accurately reflects all work, treatment, procedures, and medical decision making performed by me. Departure Information Dispostion Being Evaluated By Hospitalist Referrals Effie Nog (PCP) Patient Instructions My [facility]
--- NOTE | 2018-05-30 16:35 | History and Physical ---
History & Physical Date & Time of Service: May 30, 2018 at 16:07 Chief Complaint: Confusion Primary Care Physician: Effie Ngo History of Present Illness Source: patient, family, spouse Mrs. Jasso is a 73F resident at [facility] with PMHx significant for multiple sclerosis, chronic migraines, functional paraplegia, urinary retention with chronic hill catheterization and also colostomy bag here with altered mental status and tachycardia found to have an elevated white count of 29, chest xray with cavitary pneumonia and possible urinary tract infection. Don at bedside states she began to be out of sorts since Monday, and over the week began to be more and more weak than usual, as well as more confused. He and her son at bedside say this is what happens when she gets a UTI. He says she has been here recently, and does get UTI's frequently. Says she underwent colostomy placement just 2 weeks ago in [place]. Has had the hill in for several months now. Also has a healing sacral ulcer, with wound vac here. In the ED labs showed a WBC 29, BUN is 39 creatinine is 1.5. Troponin was negative. Urine suggestive of UTI. Chest x-ray reveals a cavitary pneumonia. The patient's vital signs revealed a tachycardia but not febrile. She is not hypoxic. The patient was given IV Zosyn as well as IV vancomycin and IV fluids. When asked regarding resuscitation endorses a wish for DNR level. On review of records, pt was last admitted here in January for weakness, pneumonia, uti and shocked liver, and a palliative consult was undergone, DNR confirmed then, POLST form on file from Aug 2017. Bertha is a poor historian at the moment, is alert to self but not to place. However does not complain of headache, visual change, chest pain, difficulty breathing, cough, abdominal pain, dysuria or numbness or tingling in her extremities. ROS See HPI for pertinent positives and negatives. Past Medical/Surgical History Medical Problems: (1) Abdominal pain (3) Abnormal EKG (4) Abnormal LFTs (liver function tests) (5) Acute hepatitis (6) Acute pharyngitis (7) Altered mental status (11) Benign hypertension (12) Cellulitis (13) Chest pain (14) Chronic headache (15) Chronic peptic ulcer (16) Closed head injury (17) Cystitis (18) Dehydration (20) Depression (21) Diarrhea (22) Elevated LFTs (27) Exacerbation of multiple sclerosis (28) Facial contusion (33) Fall at home (34) Femur fracture (36) Fracture of right hip (37) GASTRIC OUTLET OBSTRUCTION (38) Gastroesophageal reflux disease (40) Gram-positive bacteremia (41) Head injury (54) Hilar mass (55) Hip fracture, left (58) Hysterectomy (59) Intertrochanteric fracture of right hip (63) Intractable vomiting (65) Left leg weakness (66) Metabolic encephalopathy (67) Migraine (88) Multiple sclerosis (95) Pelvis fracture, right (96) Pericarditis (97) Pneumonia (100) Pressure ulcer of right buttock (114) Tachycardia (123) Weakness Surgical Problems: (1) H/O abdominal surgery (2) H/O: hysterectomy (3) History of back surgery (4) Hx of cholecystectomy (5) S/P partial gastrectomy Family History Breast cancer Diabetes mellitus FH: cholecystectomy FHx: heart disease Hypertension Social History Smoking Status: Former Smoker Drug Use: none Marital Status: Housing status: long term Occupational Status: retired Immunizations History of Influenza Vaccine: Yes Influenza Vaccine Date: Sep 09, 2013 History of Tetanus Vaccine?: Yes Tetanus Immunization Date: Oct 12, 2002 History of Pneumococcal: UNSURE Pneumococcal Date: Sep 03, 2011 History of Hepatitis B Vaccine: No Allergies Coded Allergies: Morphine (Verified Adverse Reaction, Intermediate, " MAKES ME MEAN" - CONFUSION, 01/23/18) Home Medications Scheduled Amitriptyline Hcl (Elavil), 75 MG PO HS Ascorbic Acid (Vitamin C), 500 MG PO DAILY Cranberry (Vaccinium Macrocarp (Cranberry), 450 MG PO DAILY Enoxaparin (Lovenox), 30 MG SQ QAM Gabapentin (Gabapentin), 800 MG PO TID Heparin Sod (Porcine) (Heparin 100 Unit/Ml 5ML Flush), 5 ML IV DAILY Midodrine Hcl (Midodrine Hcl), 5 MG PO TID Multivitamins/Minerals (Mvi With Minerals), 1 TAB PO DAILY Pantoprazole (Pantoprazole Sodium), 40 MG PO BID Pot Phosphate Monobasic W/ Sod (Phospha 250 Neutral), 1 TAB PO QID Potassium Ext Rel (Klor-Con), 40 MEQ PO BID Topiramate (Topiramate), 25 MG PO BID [Juice Supplement], 1 CAN PO QID Scheduled PRN Acetaminophen (Tylenol), 1 SUPP [place] Q6H PRN for MILD PAIN OR FEVER Acetaminophen Tab (Tylenol), 325 MG PO DAILY PRN for Pain or Fever Nhptvpr-Ojnvepouufmps-Dwqwpnsw (Excedrin Migraine), 1 TAB PO Q6H PRN for Migraine Ketorolac Tromethamine (Ketorolac Tromethamine), 30 MG IM DAILY PRN for Migraine Meclizine HCl (Meclizine HCl), 12.5 MG PO Q8 PRN for Dizziness or Vertigo Ondansetron Hcl (Zofran), 4 MG PO Q8H PRN for Nausea Oxycodone Hcl (Oxycodone Hcl), 15 MG PO Q4H PRN for Pain Sumatriptan Succinate (Imitrex), 100 MG PO UD PRN for Migraine Review of Systems ROS See HPI for pertinent positives and negatives. Otherwise denies new headache, vision change, chest pain, dyspnea, abdominal pain, loose or bloody stools, dysuria, or numbness tingling in extremities. Physical Exam Vital Signs Date Time Temp Pulse Resp B/P (MAP) Pulse Ox O2 Delivery O2 Flow Rate FiO2 05/30/18 15:01 125/71 05/30/18 14:31 108/69 05/30/18 14:22 114 90 05/30/18 14:01 117/69 05/30/18 13:31 128/79 05/30/18 13:30 116 20 131/81 95 Nasal Cannula 2.0 05/30/18 13:22 114 96 05/30/18 13:01 131/81 05/30/18 12:51 130/71 05/30/18 12:22 123 23 91 05/30/18 12:17 127/72 05/30/18 12:04 127 05/30/18 11:42 132 26 93 Room Air 05/30/18 11:24 37.4 130 20 112/78 93 Room Air 05/30/18 11:17 112/78 GENERAL: Awake, alert to self, not to place, tired-appearing, in no distress. Responds to commands. HENT: Normocephalic, atraumatic. EYES: Normal conjunctiva. Sclera non-icteric. NECK: Supple. Full range of motion. no JVD RESPIRATORY: Clear to auscultation. CARDIAC: Regular rate, normal rhythm. Extremities warm and well perfused. Pulses equal. ABDOMEN: Soft, non-distended. No tenderness to palpation. No rebound or guarding. No masses. Colostomy in tact, light brown stool no blood visible. LOWER EXTREMITIES: Calves are equal size bilaterally and non-tender. No edema. No discoloration. Atrophic limbs. NEURO: No motor deficits noted. SKIN: No rash or jaundice noted. +senile purpura Diagnostics Laboratory Results Results Past 24 Hours Test 05/30/18 11:33 05/30/18 11:40 05/30/18 11:50 Range/Units Urine Color YELLOW Urine Appearance SL CLOUDY CLEAR Urine pH 7.0 4.5-7.5 Urine Specific [place] 1.015 1.000-1.030 Urine Protein 1+ NEG Urine Glucose (UA) NEG NEG Urine Ketones NEG NEG Urine Occult Blood 1+ NEG Urine Nitrite NEG NEG Urine Bilirubin NEG NEG Urine Urobilinogen NEG NEG Urine Leukocyte Esterase MODERATE NEG Urine RBC 5-10 0-4 /hpf Urine WBC >30 0-5 /hpf Urine Epithelial Cells 0-5 0-5 /lpf Urine Bacteria 4+ NEG White Blood Count 29.89 4.8-10.8 K/uL Red Blood Count 4.29 4.2-5.4 M/uL Hemoglobin 12.9 12.0-16.0 g/dL Hematocrit 40.3 37-47 % Mean Corpuscular Volume 93.9 80-100 fL Mean Corpuscular Hemoglobin 30.1 25-34 pg Mean Corpuscular Hemoglobin Concent 32.0 32-36 g/dl Platelet Count 270 130-400 K/uL Mean Platelet Volume 11.1 7.4-10.4 fL Neutrophils (%) (Auto) 89.6 % Lymphocytes (%) (Auto) 2.3 % Monocytes (%) (Auto) 5.3 % Eosinophils (%) (Auto) 0.0 % Basophils (%) (Auto) 0.1 % Neutrophils # (Auto) 26.78 1.4-6.5 K/uL Lymphocytes # (Auto) 0.69 1.2-3.4 K/uL Monocytes # (Auto) 1.59 0.11-0.59 K/uL Eosinophils # (Auto) 0.00 0-0.5 K/uL Basophils # (Auto) 0.02 0-0.2 K/uL RDW Standard Deviation 61.4 36.4-46.3 fL RDW Coefficient of Variation 18.0 11.5-14.5 % Immature Granulocyte % (Auto) 2.7 % Immature Granulocyte # (Auto) 0.81 0.00-0.02 K/uL Toxic Vacuolation 1+ Dohle Bodies 1+ Spherocytes 1+ Prothrombin Time 12.1 9.0-12.0 SECONDS Prothromb Time International Ratio 1.2 0.9-1.1 Activated Partial Thromboplast Time 36.2 21.0-31.0 SECONDS Partial Thromboplastin Ratio 1.4 Sodium Level 143 136-145 mmol/L Potassium Level 4.3 3.5-5.1 mmol/L Chloride Level 110 98-107 mmol/L Carbon Dioxide Level 23 21-32 mmol/L Anion Gap 10.0 3-11 mmol/L Blood Urea Nitrogen 39 7-18 mg/dl Creatinine 1.51 0.60-1.20 mg/dl Estimated GFR () 39.9 Estimated GFR (Non- 34.4 BUN/Creatinine Ratio 25.6 10-20 Random Glucose 87 70-99 mg/dl Calcium Level 8.2 8.5-10.1 mg/dl Total Bilirubin 0.6 0.2-1 mg/dl Direct Bilirubin 0.5 0-0.2 mg/dl Aspartate Amino Transf (AST/SGOT) 36 15-37 U/L Alanine Aminotransferase (ALT/SGPT) 31 12-78 U/L Alkaline Phosphatase 173 45-117 U/L Total Creatine Kinase 64 26-192 U/L Creatine Kinase MB < 1.0 0.5-3.6 ng/ml Creatine Kinase MB Ratio 0-3.0 Troponin I < 0.015 0-0.045 ng/ml Total Protein 6.5 6.4-8.2 gm/dl Albumin 2.0 3.4-5.0 gm/dl Lipase 33 73-393 U/L Lactic Acid Level 0.8 0.4-2.0 mmol/L Microbiology Results 05/30/18 Blood Culture, Received Pending 05/30/18 Blood Culture, Received Pending 05/30/18 Urine Culture, Received Pending Diagnostic Radiology CHEST ONE VIEW PORTABLE HISTORY: 73 years-old Female Evaluate Fever/Sepsis acute fever with sepsis COMPARISON: CT abdomen and pelvis 04/10/2018, chest radiograph 01/23/2018 TECHNIQUE: Portable AP view of the chest FINDINGS: Cardiac silhouette is normal in size. Calcification of the aorta. Left subclavian Apyqgc-l-Awtu catheter is noted with distal tip in the distribution of the SVC. No pneumothorax or large pleural effusion. Mild left hemidiaphragm elevation. No overt pulmonary edema. Large consolidative opacity with ill-defined margins involves the right lung base measuring up to 7.8 cm. Centrally within this consolidation there is a 2.5 x 3.2 cm lucency. Since of posterior tatiana and screw fusion hardware of the spine. The bullous appearance of the bones. Post surgical changes about the epigastric abdomen. IMPRESSION: Large consolidative opacity about the right lung base with central lucency is suspicious for cavitary pneumonia. Close follow-up is recommended. The above report was generated using voice recognition software. It may contain grammatical, syntax or spelling errors. Electronically signed by: Dustin Johnson M.D. 05/30/2018 12:04 PM Dictated Date/Time: 05/30/2018 12:01 PM ABDOMEN AND PELVIS CT WITHOUT CONTRAST CT DOSE: 222.62 mGycm HISTORY: Acute fever with sepsis Evaluate Fever/Sepsis, LLQ tender TECHNIQUE: Multiaxial CT images of the abdomen and pelvis were performed without contrast. A dose lowering technique was utilized adhering to the principles of ALARA. COMPARISON STUDY: CT abdomen and pelvis 04/10/2018, chest radiograph of same day FINDINGS: Large consolidative opacity about the right lower lobe is partially imaged measuring up to 7.2 x 5.9 cm. Centrally along the anterior margin of this consolidation is a cavitation measuring 2.9 x 1.6 cm. These findings are new from comparison study. Large opacity of stairs the previously noted groundglass density. Subsegmental predominantly linear consolidative opacities about the left lower lobe suggest areas of scarring with atelectasis. 5 mm solid nodule of the lateral segment right middle lobe is unchanged. Study is motion degraded. No pneumatosis or pneumoperitoneum. Imaged inferior cardiac chambers are unremarkable. Evaluation of the solid abdominal organs is limited without the use of IV contrast. Within the limitations of the exam, the liver, spleen and right adrenal gland are unremarkable. Moderate thickening of the left adrenal gland. At least moderate generalized pancreatic atrophy. Prior cholecystectomy. Mild dilation of the common bile duct is likely from physiologic postsurgical state. Large cyst with peripheral calcifications noted about the left kidney measuring up to 5.8 x 5.6 cm. Calcifications about the left kidney suggests nonobstructing nephrolithiasis. Right kidney is unremarkable. No shift uropathy. Hill catheter is noted within the bladder lumen. Multiple bladder calculi redemonstrated measuring up to 13 mm. There is a large volume of air within the urinary bladder lumen. Uterus appears be surgically absent. No adnexal mass lesions. Extensive calcification of the aorta without aneurysm. No pathologically enlarged lymph nodes. Postsurgical changes of the stomach suggesting prior gastric bypass. There is no bowel obstruction identified. Left lower quadrant ostomy. Moderate wall thickening circumferentially about the rectum. There are several prominent loops of small bowel within the lower abdomen and pelvis measuring up to 2.7 cm which are fluid-filled with air-fluid levels. Subcutaneous emphysema about the anterior abdominal wall, likely secondary to injection sites. Extensive posterior tatiana and screw fusion hardware about the thoracolumbar spine. Unchanged positioning of the hardware. Corpectomy changes about the lumbar spine. Chronic changes about the posterior right iliac bone. Hardware about the bilateral proximal femora. Large decubitus ulcer measuring 4.2 cm transversely redemonstrated. Mild posterior cortical obstruction of the mid posterior sacrum redemonstrated. IMPRESSION: 1. Large partially imaged consolidation about the right lower lobe with central cavitation suggests cavitary pneumonia, new from 04/10/2018. Close follow-up is needed. 2. Nonobstructive bowel gas pattern. Several loops of small bowel within the lower abdomen and pelvis are fluid-filled with air-fluid levels suggesting enteritis or ileus. 3. Nonobstructing left nephrolithiasis with multiple urinary bladder calculi also noted. 4. Hill catheter in place with large volume of intraluminal air within the urinary bladder, likely secondary to instrumentation. Correlate with urinalysis to exclude cystitis. 5. Large decubitus ulcer with mild cortical erosion about the sacrum redemonstrated suspicious for osteomyelitis. 6. Additional findings as above. Electronically signed by: Dustin Johnson M.D. 05/30/2018 12:36 PM Dictated Date/Time: 05/30/2018 12:20 PM EKG 133 bpm, sinus tachycardia Impression Assessment and Plan Mrs. Jasso is a 73F resident at [facility] with PMHx significant for multiple sclerosis, chronic migraines, functional paraplegia, urinary retention with chronic hill catheterization and also colostomy bag here with altered mental status and tachycardia found to have an elevated white count of 29, chest xray with cavitary pneumonia and possible urinary tract infection. Stevo at bedside states she began to be out of sorts since Monday, and over the week began to be more and more weak than usual, as well as more confused. He and her son at bedside say this is what happens when she gets a UTI. He says she has been here recently, and does get UTI's frequently. Says she underwent colostomy placement just 2 weeks ago in [place]. Has had the hill in for several months now. Also has a healing sacral ulcer, with wound vac here. In the ED labs showed a WBC 29, BUN is 39 creatinine is 1.5. Troponin was negative. Urine suggestive of UTI. Chest x-ray reveals a cavitary pneumonia. The patient's vital signs revealed a tachycardia but not febrile. She is not hypoxic. The patient was given IV Zosyn as well as IV vancomycin and IV fluids. Right sided cavitary pneumonia -- HAP/TB? - on chest X ray and CT - Received one dose of vanc and zosyn in ED - continue Vanc and Zosyn, given recent hospitalization and [facility] residency - ID, consulted - to consider: quantiferon? - pro baldemar ordered - sputum cx ordered - O2 per protocol, not hypoxic Abnormal urinalysis - on background of chronic catheterization - vanc and zosyn will also cover - follow cx Sinus tachycardia - infection/sepsis/dehydration - QT/QTc 272/404, new PVCs present - likely 2/2 acute infection - optimize e-lytes - K>4, Mg >2. - hydration see JANN JANN - dehydration vs sequelae of infection - Hydropress Operator 1.5 - her baseline appears to be <0.5. - likely 2/2 acute infection, dehydration. - continue IV hydration -- 1.5x maintenance - 100ml/hr Sacral decubitus ulcer - on review of records has been MRSA + - order precautions - order wound care consult Migraine - continue topamax, amitryptyline MS - routine care Paraplegia functional - hold lovenox given CrCl <20 - continue gabapentin -- take down to 300 TID (from home 800 tid) due to poor cr cl, confusion. Delirium - treat underlying cause PUD - Protonix BID Frailty - nutrition consult - speech swallow consult DVT ppx: Heparin SQ q12h FEN/GI: NSS 100ml/hr -- NPO until speech consult complete Code status: DNR Resuscitation Status DNR VTE Prophylaxis Will order VTE Prophylaxis: Yes Note Total Time: Critical Care 30 - 74 minutes Resident Tracking Resident Involvement: Resident Care Provided Care Provided: Adult [facility] Medicine Assessment/Plan Resident Physician Supervision Note: I was present with Dr. Cruz during the history and exam. I discussed the case with the resident and agree with the findings and plan as documented in the note. Any exceptions or clarifications are listed here: Pt seen and examined at bedside. Recent worsening of mental status and increased fatigue, coupled with difficulty with focus in the last 5 days in the setting of tachycardia, decreased oxygen saturation and new PNA on CXR. Resident of [facility] with recent hospital admission for colon surgery w/ ostomy with sacral wound with vac in place. At present, patient feels confused and SOB with baseline pain in the sacrum at site of vac/ulceration. Oriented to self, place and somewhat to time. Spouse not present at time of interview to verify details. On examination, S1/S2 nl with sinus tachycardia in the 110s. Lungs are decreased throughout with mild end exp wheezing and rales on the right lower aspect with poor inspiratory effort. BS are +ve, NT/ND abdomen. Sacral vac in place with mild surrounding erythema. Hill catheter in place (chronically). Ostomy appears well and brown liquid stool output. PNA - concerning features of cavitation and large size in a confused patient with recent hospitalization and [place] resident, h/o pulmonary nodule in that region as well. Consultation for pulmonology and ID, as well as respiratory isolation in case of atypical pathogen. Broad spectrum abx for HCAP coverage as well, and O2 per protocol with goal saturation over 92% Tachycardia - IV hydration with BMP monitoring JANN - as above Sacral ulcer - wound care c/s. As above. Migraine hx without present MCKEON - continue chronic meds MS w/ functional paraplegia - holding lovenox in the setting of decreased CrCl in favor of heparin ppx for now. Continue chronic medications Other management as noted above. Will confirm code status with conversation w/ spouse RODNEY. Resident d/w spouse in ED re: DNR.
[2018-05-30] MEDS ORDERED: ONDANSETRON INJ 2 MG/ML 2 ML VIAL IV PRN (17:15)
[2018-05-30] MEDS ORDERED: POLYETHYLENE (MIRALAX) 17 GM PACK PO PRN (17:15)
[2018-05-30] MEDS ORDERED: ACETAMINOPHEN 325 MG TAB PO PRN (17:15)
[2018-05-30 17:48] VITALS: O2SAT 91; BMI 18.9
[2018-05-30] MEDS ORDERED: SUMATRIPTAN SUCC TAB 100 MG TAB PO PRN (18:15)
[2018-05-30] MEDS ORDERED: PIPERACILL/TAZOBAC CONSULT ACTIVE PRN (18:15)
[2018-05-30] MEDS ORDERED: VANCOMYCIN CONSULT ACTIVE PRN (18:15)
[2018-05-30] MEDS ORDERED: ONDANSETRON 4 MG TAB PO PRN (18:15)
[2018-05-30] MEDS ORDERED: ACETAMINOPHEN 650 MG SUPP PR PRN (18:15)
[2018-05-30] MEDS: NSS + 20MEQ KCL 1000ML 1,000 ML IV SCH (19:44)
[2018-05-30] MEDS: PIPERACILL/TAZOBAC IV 3.375 GM in DEXTROSE 5% 100ML 100 ML IV SCH (19:45)
[2018-05-30 19:51] VITALS: BP 117/73; PULSE 127; O2SAT 92
[2018-05-30 20:00] VITALS: O2SAT 98
[2018-05-30] MEDS: HEPARIN SOD 5000 UNIT/0.5 ML CARP SQ SCH (20:57)
[2018-05-30] MEDS: AMITRIPTYLINE HCL 25 MG TAB PO SCH (20:58)
[2018-05-30] MEDS: TOPIRAMATE 25 MG TAB PO SCH (20:58)
[2018-05-30] MEDS: PANTOprazole SOD 40 MG TAB PO SCH (20:59)
[2018-05-30] MEDS: GABAPENTIN 300 MG CAP PO SCH (20:59)
--- NOTE | 2018-05-30 21:09 | Pharmacy Progress Note ---
Pharmacy Abx Initial Consult Date of Service May 30, 2018. Pharmacy Dosing Scope Date of Consult: 05/30/18 Consultation requested by: Dr. Cruz Pharmacy is consulted to initiate vancomycin/Zosyn IV dosing therapy, order appropriate labs and adjust drug dose/frequency. Subjective The patient is a 73 year old female admitted on May 30, 2018 at 17:21. Objective Height (Feet): 5 Height (Inches): 3.00 Weight (Kilograms): 48.400 Vital Signs (Past 12Hrs) Vital Signs Past 12 Hours Date Time Temp Pulse Resp B/P (MAP) Pulse Ox O2 Delivery O2 Flow Rate FiO2 05/30/18 20:00 98 Nasal Cannula 2.0 05/30/18 19:51 127 16 117/73 (88) 92 Nasal Cannula 05/30/18 17:49 37.4 129 20 134/91 86 05/30/18 17:48 91 Nasal Cannula 2.0 05/30/18 17:11 129 86 05/30/18 17:01 134/91 05/30/18 16:51 124 05/30/18 16:41 123 92 05/30/18 16:31 129/68 05/30/18 16:11 122 90 05/30/18 16:06 122 94 05/30/18 16:01 140/70 05/30/18 15:31 129/69 05/30/18 15:06 119 90 05/30/18 15:01 125/71 05/30/18 14:31 108/69 05/30/18 14:22 114 90 05/30/18 14:01 117/69 05/30/18 13:31 128/79 05/30/18 13:30 116 20 131/81 95 Nasal Cannula 2.0 05/30/18 13:22 114 96 05/30/18 13:01 131/81 05/30/18 12:51 130/71 05/30/18 12:22 123 23 91 05/30/18 12:17 127/72 05/30/18 12:04 127 05/30/18 11:42 132 26 93 Room Air 05/30/18 11:24 37.4 130 20 112/78 93 Room Air 05/30/18 11:17 112/78 Lab Results (24Hrs) Laboratory Tests (24 Hours) Test 05/30/18 11:40 05/30/18 11:50 White Blood Count 29.89 K/uL (4.8-10.8) H Red Blood Count 4.29 M/uL (4.2-5.4) Hemoglobin 12.9 g/dL (12.0-16.0) Hematocrit 40.3 % (37-47) Mean Corpuscular Volume 93.9 fL (80-100) Mean Corpuscular Hemoglobin 30.1 pg (25-34) Mean Corpuscular Hemoglobin Concent 32.0 g/dl (32-36) Platelet Count 270 K/uL (130-400) Mean Platelet Volume 11.1 fL (7.4-10.4) H Neutrophils (%) (Auto) 89.6 % Lymphocytes (%) (Auto) 2.3 % Monocytes (%) (Auto) 5.3 % Eosinophils (%) (Auto) 0.0 % Basophils (%) (Auto) 0.1 % Neutrophils # (Auto) 26.78 K/uL (1.4-6.5) H Lymphocytes # (Auto) 0.69 K/uL (1.2-3.4) L Monocytes # (Auto) 1.59 K/uL (0.11-0.59) H Eosinophils # (Auto) 0.00 K/uL (0-0.5) Basophils # (Auto) 0.02 K/uL (0-0.2) Procalcitonin 30.69 ng/ml (0-0.5) H Total Creatine Kinase 64 U/L (26-192) Lactic Acid Level 0.8 mmol/L (0.4-2.0) Micro Results Date/Time Source Procedure Growth Status 05/30/18 11:50 Blood Blood Culture Pending Received 05/30/18 11:40 Blood Blood Culture Pending Received 05/30/18 11:33 Urine,Catheterized Urine Culture Pending Received Risk Factors for Resistance * Resident in a penitentiary or extended-care facility * Hospitalization for 48 hours or more within the past 90 days * History of infection with a multidrug-resistant organism: MRSA Assessment & Plan Assessment 73 year old female with a PMH of chronic hill and colostomy for MS / functional quadriplegia admitted for cavitary pneumonia. Plan vancomycin/zosyn for treatment of cavitary PNA Vancomycin IV * Loading dose: 1000 mg (20 mg/kg) * Maintenance dose: 750 mg IV (15 mg/kg) every 12 hours (patient currently in JANN with a serum creatinine of 1.5 *baseline 0.5* therefore dosing more on baseline creatinine with reduction in dose if JANN does not resolve tomorrow) * Goal trough level for pulmonary indication : 15 to 20 mcg/mL * Trough ordered for 06/01/18 * A less than traditional extended dosing interval has been selected due to likelihood of drug accumulation in patient with h/o CKD. Piperacillin/tazobactam * 4.5 g bolus administered over 30 minutes, then 3.375 g IV extended infusion every 8 hours for CrCl greater than 20 mL/min Pharmacy will continue to follow and will adjust dose/frequency as necessary. Thank you.
[2018-05-30] MEDS ORDERED: MAGNESIUM SULFATE 1GM / D5W 100 ML IV ONE (21:15)
[2018-05-30] MEDS: VANCOMYCIN IV 750 MG in SODIUM CHLORIDE 0.9% 250ML 250 ML IV SCH (22:08)
[2018-05-30 23:22] VITALS: BP 103/69; PULSE 117; TEMP 36.7; O2SAT 94
[2018-05-31] VITALS (8 sets, daily range): BP systolic 115–153; BP diastolic 74–83; PULSE 103–125; TEMP 36.3–36.7; O2SAT 93–98; Ht 160 cm; Wt 43.3 kg
[2018-05-31] MEDS: PIPERACILL/TAZOBAC IV 3.375 GM in DEXTROSE 5% 100ML 100 ML IV SCH ×3 (03:00→17:21)
[2018-05-31 05:25] LABS: HEMATOCRIT 32.1 % (37-47); HEMOGLOBIN 10.1 g/dL (12.0-16.0); MEAN CELL VOLUME 95.3 fL (80-100); MEAN CORPUSCULAR HGB CONC 31.5 g/dl (32-36); MEAN PLATELET VOLUME 11.2 fL (7.4-10.4); PLATELET COUNT 219 K/uL (130-400); RED CELL DISTRIBUTION WIDTH CV 18.1 % (11.5-14.5); RED CELL DISTRIBUTION WIDTH SD 63.3 fL (36.4-46.3); WHITE BLOOD COUNT 22.03 K/uL (4.8-10.8)
[2018-05-31 05:44] LABS: BASO ABS # 0.01 K/uL (0-0.2); LYMPH % 2.1 %; LYMPH ABS # 0.47 K/uL (1.2-3.4); MONO % 4.9 %; MONO ABS # 1.07 K/uL (0.11-0.59); NEUT % 92.5 %; NEUT ABS # 20.38 K/uL (1.4-6.5)
[2018-05-31] MEDS: NSS + 20MEQ KCL 1000ML 1,000 ML IV SCH ×2 (06:19→16:15)
[2018-05-31 06:47] LABS: CALCIUM 7.5 mg/dl (8.5-10.1); CREATININE 1.06 mg/dl (0.60-1.20); POTASSIUM 4.1 mmol/L (3.5-5.1)
--- NOTE | 2018-05-31 07:48 | Family Medicine Progress Note ---
Progress Note Date of Service May 31, 2018. Subjective JUAN JOSE overnight. Complaint of dry mouth, feeling hungry and thirsty. Complains of vague right sided pain, on right lateral chest. ROS See HPI for pertinent positives and negatives. Otherwise denies new headache, vision change, dyspnea, abdominal pain. Medications Current Inpatient Medications Medications (Trade) Dose Ordered Sig/Melvin Route Start Time Stop Time Status Last Admin Dose Admin Heparin Sodium (Porcine) (Heparin Sq 5000 Unit/0.5ml) 5,000 unit Q12 SQ 05/30/18 21:00 06/29/18 20:59 05/31/18 09:36 5,000 UNIT Potassium Chloride/Sodium Chloride 1,000 ml @ 100 mls/hr Q10H IV 05/30/18 19:30 06/29/18 17:01 05/31/18 16:15 100 MLS/HR Acetaminophen (Tylenol Tab) 650 mg Q4H PRN PO 05/30/18 17:15 06/29/18 17:14 Ondansetron HCl (Zofran Inj) 4 mg Q6H PRN IV 05/30/18 17:15 06/29/18 17:14 Polyethylene (Miralax Powder Packet) 17 gm DAILY PRN PO 05/30/18 17:15 06/29/18 17:14 Vancomycin HCl 750 mg/Sodium Chloride 265 ml @ 125 mls/hr Q12H IV 05/30/18 22:00 06/06/18 21:59 Future Hold 05/31/18 09:36 125 MLS/HR Vancomycin HCl (Consult) 1 ea UD PRN N/A 05/30/18 18:15 06/29/18 18:14 Piperacillin Sod/ Tazobactam Sod 3.375 gm/Dextrose 115 ml @ 28.75 mls/ hr Q8H IV 05/30/18 19:00 06/06/18 18:59 05/31/18 17:21 28.75 MLS/HR Miscellaneous Information (Consult) 1 ea UD PRN N/A 05/30/18 18:15 06/29/18 18:14 Acetaminophen (Tylenol Supp) 650 mg Q6H PRN LA 05/30/18 18:15 06/29/18 18:14 Amitriptyline HCl (Elavil Tab) 75 mg HS PO 05/30/18 21:00 06/29/18 20:59 05/31/18 20:18 75 MG Ondansetron HCl (Zofran Tab) 4 mg Q8H PRN PO 05/30/18 18:15 06/29/18 18:14 Pantoprazole Sodium (Protonix Tab) 40 mg BID PO 05/30/18 21:00 06/29/18 20:59 05/31/18 20:18 40 MG Sumatriptan Succinate (Imitrex Tab) 100 mg DAILY PRN PO 05/30/18 18:15 06/29/18 18:14 05/31/18 10:58 100 MG Topiramate (Topamax Tab) 25 mg BID PO 05/30/18 21:00 06/29/18 20:59 05/31/18 20:18 25 MG Midodrine (Proamatine Tab) 5 mg TID@0800,1200,1800 PO 05/31/18 08:00 06/30/18 07:59 05/31/18 17:21 5 MG Gabapentin (Neurontin Cap) 300 mg TID PO 05/30/18 21:00 06/29/18 20:59 05/31/18 20:18 300 MG Heparin Sodium (Porcine) (Heparin 100 Unit/ml 5ml Flush) 5 ml PRN PRN IV 05/31/18 01:30 06/30/18 01:29 Morphine Sulfate (MoRPHine SULFATE INJ) 2 mg Q4HWA PRN IV 05/31/18 11:15 06/14/18 11:14 Future Hold Enteral Nutritional Formula (Boost Plus Vanilla) 1 can BIDM PO 05/31/18 16:45 06/30/18 16:44 05/31/18 17:20 1 CAN Oxycodone HCl (Roxicodone Immediate Rel Tab) 10 mg Q4HWA PRN PO 05/31/18 17:30 06/14/18 17:29 05/31/18 17:47 10 MG Objective Vital Signs Date Time Temp Pulse Resp B/P (MAP) Pulse Ox O2 Delivery O2 Flow Rate FiO2 05/31/18 07:16 36.7 120 20 130/80 (97) 95 Room Air 05/31/18 02:59 36.3 108 15 116/75 (89) 93 Nasal Cannula 2.0 05/31/18 00:01 98 Nasal Cannula 2.0 7/18/18 23:22 36.7 117 15 103/69 (80) 94 Nasal Cannula 2.0 05/30/18 20:00 98 Nasal Cannula 2.0 18 19:51 127 16 117/73 (88) 92 Nasal Cannula 05/30/18 17:49 37.4 129 20 134/91 86 18 17:48 91 Nasal Cannula 2.0 05/30/18 17:11 129 86 05/30/18 17:01 134/91 05/30/18 16:51 124 05/30/18 16:41 123 92 05/30/18 16:31 129/68 05/30/18 16:11 122 90 05/30/18 16:06 122 94 05/30/18 16:01 140/70 05/30/18 15:31 129/69 05/30/18 15:06 119 90 05/30/18 15:01 125/71 05/30/18 14:31 108/69 05/30/18 14:22 114 90 05/30/18 14:01 117/69 05/30/18 13:31 128/79 05/30/18 13:30 116 20 131/81 95 Nasal Cannula 2.0 05/30/18 13:22 114 96 05/30/18 13:01 131/81 05/30/18 12:51 130/71 05/30/18 12:22 123 23 91 05/30/18 12:17 127/72 05/30/18 12:04 127 05/30/18 11:42 132 26 93 Room Air 05/30/18 11:24 37.4 130 20 112/78 93 Room Air 05/30/18 11:17 112/78 Physical Exam Notes: GENERAL: Awake, alert to self, not to place, tired-appearing, in no distress. Responds to commands. HENT: Normocephalic, atraumatic. EYES: Normal conjunctiva. Sclera non-icteric. NECK: Supple. Full range of motion. no JVD RESPIRATORY: Diminshed breath sounds. Normal work of breathing. CARDIAC: Regular rate, normal rhythm. Extremities warm and well perfused. Pulses equal. ABDOMEN: Soft, non-distended. No tenderness to palpation. No rebound or guarding. No masses. Colostomy in tact, light brown stool no blood visible. LOWER EXTREMITIES: Calves are equal size bilaterally and non-tender. No edema. No discoloration. Atrophic limbs. NEURO: No motor deficits noted. : hill catheter draining clear yellow urine SKIN: No rash or jaundice noted. +senile purpura Laboratory Results 05/31/18 04:55 Red Blood Count 3.37, Mean Corpuscular Volume 95.3, Mean Corpuscular Hemoglobin 30.0, Mean Corpuscular Hemoglobin Concent 31.5, Mean Platelet Volume 11.2, Neutrophils (%) (Auto) 92.5, Lymphocytes (%) (Auto) 2.1, Monocytes (%) (Auto) 4.9, Eosinophils (%) (Auto) 0.0, Basophils (%) (Auto) 0.0, Neutrophils # (Auto) 20.38, Lymphocytes # (Auto) 0.47, Monocytes # (Auto) 1.07, Eosinophils # (Auto) 0.00, Basophils # (Auto) 0.01 05/31/18 04:55 Test 05/30/18 11:33 05/30/18 11:40 05/30/18 11:50 05/31/18 04:55 Urine Color YELLOW Urine Appearance SL CLOUDY (CLEAR) Urine pH 7.0 (4.5-7.5) Urine Specific Lamy 1.015 (1.000-1.030) Urine Protein 1+ (NEG) Urine Glucose (UA) NEG (NEG) Urine Ketones NEG (NEG) Urine Occult Blood 1+ (NEG) Urine Nitrite NEG (NEG) Urine Bilirubin NEG (NEG) Urine Urobilinogen NEG (NEG) Urine Leukocyte Esterase MODERATE (NEG) Urine RBC 5-10 /hpf (0-4) Urine WBC >30 /hpf (0-5) Urine Epithelial Cells 0-5 /lpf (0-5) Urine Bacteria 4+ (NEG) Spherocytes 1+ Prothrombin Time 12.1 SECONDS (9.0-12.0) Prothromb Time International Ratio 1.2 (0.9-1.1) Activated Partial Thromboplast Time 36.2 SECONDS (21.0-31.0) Partial Thromboplastin Ratio 1.4 Total Bilirubin 0.6 mg/dl (0.2-1) Direct Bilirubin 0.5 mg/dl (0-0.2) Aspartate Amino Transf (AST/SGOT) 36 U/L (15-37) Alanine Aminotransferase (ALT/SGPT) 31 U/L (12-78) Alkaline Phosphatase 173 U/L (45-117) Total Creatine Kinase 64 U/L (26-192) Creatine Kinase MB < 1.0 ng/ml (0.5-3.6) Creatine Kinase MB Ratio (0-3.0) Troponin I < 0.015 ng/ml (0-0.045) Total Protein 6.5 gm/dl (6.4-8.2) Albumin 2.0 gm/dl (3.4-5.0) Lipase 33 U/L (73-393) Procalcitonin 30.69 ng/ml (0-0.5) Lactic Acid Level 0.8 mmol/L (0.4-2.0) White Blood Count 22.03 K/uL (4.8-10.8) Red Blood Count 3.37 M/uL (4.2-5.4) Hemoglobin 10.1 g/dL (12.0-16.0) Hematocrit 32.1 % (37-47) Mean Corpuscular Volume 95.3 fL (80-100) Mean Corpuscular Hemoglobin 30.0 pg (25-34) Mean Corpuscular Hemoglobin Concent 31.5 g/dl (32-36) Platelet Count 219 K/uL (130-400) Mean Platelet Volume 11.2 fL (7.4-10.4) Neutrophils (%) (Auto) 92.5 % Lymphocytes (%) (Auto) 2.1 % Monocytes (%) (Auto) 4.9 % Eosinophils (%) (Auto) 0.0 % Basophils (%) (Auto) 0.0 % Neutrophils # (Auto) 20.38 K/uL (1.4-6.5) Lymphocytes # (Auto) 0.47 K/uL (1.2-3.4) Monocytes # (Auto) 1.07 K/uL (0.11-0.59) Eosinophils # (Auto) 0.00 K/uL (0-0.5) Basophils # (Auto) 0.01 K/uL (0-0.2) RDW Standard Deviation 63.3 fL (36.4-46.3) RDW Coefficient of Variation 18.1 % (11.5-14.5) Immature Granulocyte % (Auto) 0.5 % Immature Granulocyte # (Auto) 0.10 K/uL (0.00-0.02) Toxic Vacuolation 1+ Dohle Bodies 1+ Anion Gap 13.0 mmol/L (3-11) Est Creatinine Clear Calc Drug Dose 37.2 ml/min Estimated GFR () 61.2 Estimated GFR (Non- 52.8 BUN/Creatinine Ratio 39.2 (10-20) Calcium Level 7.5 mg/dl (8.5-10.1) Magnesium Level 2.0 mg/dl (1.8-2.4) Date/Time Source Procedure Growth Status 05/30/18 21:45 Nasal MRSA DNA Surveillance Screen - Final Specimen Negative for MRSA by DNA Probe Complete Assessment and Plan Mrs. Jasso is a 73F resident at [facility] with here with metabolic encephalopathy and tachycardia found to have an elevated white count of 29, chest xray with cavitary pneumonia and possible urinary tract infection and healing ulcer with wound vac. PMHx significant for multiple sclerosis, chronic migraines, functional paraplegia, urinary retention with chronic hill catheterization and also colostomy bag for incontinence complicated by sacral ulcer Metabolic encephalopathy in setting of sepsis due to right sided cavitary pneumonia -- HAP/TB, vs healing sacral ulcer, and abnormal UA - 5x7cm cavitation on chest X ray and CT - continue IV Vanc and Zosyn, to cover for HAP - ID input greatly appreciated - quantiferon ordered, await results. Unlikely to be TB - spoke with case mgmt and liaison is to acquire PPD results from [facility]. - pro baldemar elevated - sputum cx ordered - O2 per protocol, not hypoxic at this time Abnormal urinalysis - on background of chronic catheterization - vanc and zosyn will also cover - follow cx - +GNR Sinus tachycardia - infection/sepsis/dehydration - QT/QTc 272/404, new PVCs present - likely 2/2 acute infection - optimize e-lytes - K>4, Mg >2. 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 Resolved with 1.5x maintenance fluid. - likely 2/2 acute infection, dehydration. -will continue gentle maintenance fluid hydration Sacral decubitus ulcer - possible source of infection with suspicion for osteomyelitis - on review of records has been MRSA + - on precautions - wound care consult - abx as above Migraine - continue topamax, amitryptyline MS - routine care Paraplegia functional - hold lovenox given initial CrCl <20 - on heparin as below - continue gabapentin -- take down to 300 TID (from home 800 tid) due to poor cr cl, confusion. Delirium - treat underlying cause PUD - Protonix BID Frailty - nutrition consult - speech swallow consult DVT ppx: Heparin SQ q12h FEN/GI: - NSS + 20K --> 80ml/hr - Diet: regular, mech soft, +boost. Nutrition recs greatly appreciated Code status: DNR Continued [facility] stay due to: abnormal vital signs, multiple IV medications needed Resident Tracking Resident Involvement: Resident Care Provided Care Provided: Adult Hospital Medicine Assessment/Plan Resident Physician Supervision Note: I was present with Dr. Cruz during the history and exam. I discussed the case with the resident and agree with the findings and plan as documented in the note. Any exceptions or clarifications are listed here: Pt seen and examined at bedside. Pt reports minimal improvement in fatigue or respiratory status, despite present intervention. More oriented today AAOx3 on interview. On examination, S1/S2 nl, sinus tachycardia. Lungs are improved, but still decreased with end exp wheezing and rales on the right lower aspect with poor inspiratory effort. BS are +ve, NT/ND abdomen. Sacral vac in place with mild surrounding erythema. Hill catheter in place (chronically). Ostomy appears well and brown liquid stool output. PNA w/ cavitation and AHRF, senior living resident - pulmonology and ID consultation appreciated - continue IV vanc/zosyn for HCAP, and O2 per protocol with goal saturation over 92%. Tachycardia w/ elevation in Cr and decreased bicarb - IV hydration with BMP monitoring. Bolus of 500cc, consider rebolus in PM. Repeat BMP in PM JANN - as above Other management as noted above.
[2018-05-31] MEDS: GABAPENTIN 300 MG CAP PO SCH ×4 (08:00→20:18)
[2018-05-31] MEDS: PANTOprazole SOD 40 MG TAB PO SCH ×3 (08:00→20:18)
[2018-05-31] MEDS: MIDODRINE 2.5 MG TAB PO SCH ×3 (08:00→17:21)
[2018-05-31] MEDS: TOPIRAMATE 25 MG TAB PO SCH ×3 (08:00→20:18)
[2018-05-31] MEDS: HEPARIN SOD 5000 UNIT/0.5 ML CARP SQ SCH ×2 (09:36→21:22)
[2018-05-31] MEDS: VANCOMYCIN IV 750 MG in SODIUM CHLORIDE 0.9% 250ML 250 ML IV SCH (09:36)
--- NOTE | 2018-05-31 10:01 | Clinical Documentation Query ---
CLINICAL DOCUMENTATION QUERY 73 year old female who presents to the Emergency Room with persistent altered mental status found to be septic from a cavitary pneumonia. H&P and daily progress notes state question of HAP/TB. HAP w/o suspected organism by coding language codes to simple pneumonia. Query #1/3 In your clinical opinion is this patient being managed for: ( ) MRSA or gram negative pneumonia in setting of HAP Vs. TB ( ) Not Agree ( ) Other explanation of clinical findings (No explanation is considered a No Response) ( x ) Unable to determine ( ) Need to Discuss (Phone CDS or qliq) (No discussion is considered a No Response) The medical record reflects the following clinical findings, treatment, and risk factors. Clinical Indicators: HAP/TB, sepsis, tachycardia 130's, tachypnea 26 Treatment: IV Vancomycin, IV Zosyn, O2, Risk Factors: Age, rehab hospital contact, multiple other recent infections leading to immunocompromise. Query #2/3 In your clinical opinion is this patient being managed for: ( x ) Metabolic encephalopathy in setting of HAP/?TB, Sepsis, UTI, infected sacral ulcer. ( ) Not Agree ( ) Other explanation of clinical findings (No explanation is considered a No Response) ( ) Unable to determine ( ) Need to Discuss (Phone CDS or qliq) (No discussion is considered a No Response) The medical record reflects the following clinical findings, treatment, and risk factors. Clinical Indicators: AMS, Oriented to self only. Treatment: IVF's, IV Vancomycin, IV Zosyn Risk Factors: Age, hx of metabolic encephalopathy, and multiple underlying infectious sources. Query #3/3 H&P notes patient as having a sacral pressure ulcer with wound Vac POA. Stage of said ulcer can add significant severity of illness to case if documented. In your clinical opinion is this patient being managed for: ( ) Pressure ulcer of sacral region, stage 1 ( ) Pressure ulcer of sacral region, stage 2 ( ) Pressure ulcer of sacral region, stage 3 ( ) Pressure ulcer of sacral region, stage 4 ( ) Not Agree ( ) Other explanation of clinical findings (No explanation is considered a No Response) ( ) Unable to determine ( x ) Need to Discuss (Phone CDS or qliq) (No discussion is considered a No Response) The medical record reflects the following clinical findings, treatment, and risk factors. Clinical Indicators: Sacral decubitus POA, wound Vac Treatment: WOCN, q2hr repositioning, Risk Factors: Age, Hx of sacral decubitus, Wound Vac. Please clarify and document your clinical opinion in the progress notes and discharge summary. Terms such as "probable", "suspected", "likely", "questionable", "possible", or "still to be ruled out" are acceptable. IF IN AGREEMENT, YOU MUST DOCUMENT ABOVE DIAGNOSTIC STATEMENT IN DAILY PROGRESS NOTES AND DISCHARGE SUMMARY. This document is not part of the patient's record. Thank You, Tim Marshall RN [phone] & via qlicCONNECT
[2018-05-31] MEDS ORDERED: MoRPHine SULFATE 2 MG/ML CARP IV PRN (11:15)
[2018-05-31] MEDS ORDERED: SODIUM CHLORIDE 0.9% 500ML 500 ML IV SCH (11:15)
--- NOTE | 2018-05-31 11:37 | PULMONARY CONSULTATION ---
DATE OF CONSULTATION: 05/31/2018 TIME: 9:25 a.m. REPORT OF CONSULTATION: The patient was seen in room #215. HISTORY OF PRESENT ILLNESS: She is a 73-year-old female who resides at [facility]. She was brought to the Emergency Room yesterday because of increased weakness, garbled speech, and confusion. She was found to be tachycardic with a heart rate in the 130s, and a temperature of 37.4. There was a history that she had had a colostomy done at [facility] approximately two weeks ago. As part of her evaluation, she had a chest x-ray done. This revealed evidence of a large consolidation with central lucency in the right lower lung field area. This measured up to 7.8 cm. It was not seen on a prior chest x-ray done in January. It was also not seen on a CAT scan of the abdomen done in March. The patient has a significant history of numerous medical problems, most prominently including multiple sclerosis. The patient is not the best historian. She also has difficulty speaking at present. She states that she is somewhat short of breath more than normal. She is having pain in the right lateral and posterior chest area, which is intensified with deep breathing. She admits to having marked difficulty swallowing. She notices food go the wrong way. She is not expectorating any phlegm. There has been no hemoptysis. She denies chills or sweats. She has not had any significant fever since admission other than the 37.4 within the first few hours of being here. The patient is an ex-smoker. She thinks she quit a couple of years ago. She said she smoked about a pack per day. She denies ever being told that she had COPD or emphysema. She states she is more short of breath than normal. She is bedridden. She is not able to ambulate at all due to her MS presumably. She has essentially functional paraplegia. The patient currently is in respiratory isolation as well as in isolation for history of MRSA. PAST MEDICAL HISTORY: 1. Hypertension. 2. Peptic ulcer disease. 3. Migraine headaches. 4. MS. 5. Recurring urinary tract infections. 6. Functional paraplegia. 7. Severe sacral ulceration with probable osteomyelitis. 8. History of hepatitis and shock liver. PAST SURGICAL HISTORY: 1. Hysterectomy. 2. Cholecystectomy. 3. Hip fracture. 4. Partial gastrectomy. 5. Spine surgery. 6. Left Port-A-Cath. 7. Colostomy done recently - it is not clear of the reason it was done. SOCIAL HISTORY: Tobacco: Former smoker as noted. The number of pack years, is not clear. Alcohol use is none. ALLERGIES: MORPHINE. FAMILY HISTORY: Positive for breast cancer, diabetes, hypertension, and heart disease. MEDICATIONS AT HOME: 1. Acetaminophen. 2. Amitriptyline 75 mg at bedtime. 3. Ascorbic acid. 4. Excedrin Migraine. 5. Cranberry. 6. Lovenox 30 mg daily. 7. Gabapentin 800 mg t.i.d. 8. Ketorolac p.r.n. 9. Meclizine 12.5 mg q. 8 hours. p.r.n. 10. Midodrine 5 mg t.i.d. 11. Zofran p.r.n. 12. Oxycodone 15 mg q. 4 hours. p.r.n. 13. Pantoprazole 40 mg b.i.d. 14. Potassium phosphate. 15. Potassium 40 mEq b.i.d. 16. Imitrex p.r.n. 15. Topiramate 25 mg b.i.d. REVIEW OF SYSTEMS: Essentially negative except for what is mentioned in the history of present illness. PHYSICAL EXAMINATION: GENERAL: The patient is a 73-year-old female who is very slender. The patient appears weak. Her speech is unclear. VITAL SIGNS: Her weight is listed as 39.4 kilograms. However, yesterday it was reported as 48.4 kilograms. I am quite certain there was not a 9 kilogram weight loss in one day and thus, the weight is in question. HEENT: Her pupils were reactive. She has had prior cataract surgeries bilaterally. Nares were clear. Her lips and membranes of the oropharynx are very dry. She has a denture on top. NECK: Palpation of the neck reveals no lymph nodes. She has several small scars on the left side of the neck and one right in the suprasternal notch. I am not exactly certain what they are from. The neck veins were not distended. CARDIOVASCULAR: The cardiac rate is 120 per minute. The rhythm was regular. The blood pressure is 130/80. LUNGS: The respiratory rate is 20 breaths per minute. It is a little shallow. Her saturations are 95%. She does have pain in the chest with deep inspiration. Mild rales were heard in the right chest. It was difficult to auscultate and I could not auscultate posteriorly. The patient was too weak to turn at all or unable to because of her MS. I did not have any nursing help at the time of this exam. ABDOMEN: Shows evidence of a colostomy, which is functioning. Bowel sounds were present and were normal. There was no tenderness to palpation or definite mass. She has a Vera in place. She has a wound VAC on her sacrum. EXTREMITIES: Showed no cyanosis, clubbing or edema. She had minimal movement of the lower extremities. They were extremely weak. IMAGING: CAT scan of the abdomen showed a large consolidation in the right lower lobe with central cavitation. There was a non-obstructive bowel gas pattern. Large decubitus was seen with mild cortical erosion around the sacrum suspicious for osteomyelitis. LABORATORY DATA: White count yesterday was 29.89. Today, the white count is down to 22.03. Hemoglobin on admission was 12.9 and today is 10.1. Platelets yesterday 270,000 and today 219,000. The differential today shows 92.5 neutrophils. INR is 1.2 and PTT is 36.2. Urinalysis showed +1 protein, +1 blood, moderate leukocyte esterase, 5-10 rbc's, greater than 30 wbc's, 4+ bacteria. Yesterday, BUN was 39 with creatinine 1.51. Today, BUN is 42 with creatinine 1.06. Electrolytes today show sodium 146, potassium 4.1, chloride 115, bicarbonate 18. This would suggest she may be developing some metabolic acidosis. Blood sugar today was 66. Magnesium was low at 1.5 yesterday, but today, it is 2.0. Procalcitonin is significantly elevated at 30.69. Urine culture is positive for Gram-negative bacilli greater than 100,000 colonies. Nasal swab was negative for MRSA. Blood cultures are pending. IMPRESSION: 1. Right lower lobe cavitary consolidation suggestive for a lung abscess. 2. Multiple sclerosis. 3. Dysphagia. 4. Leukocytosis. 5. Dehydration. 6. Urinary tract infection with Gram-negative bacilli. COMMENTS: The patient has a large consolidation with cavitation that was not seen on a CAT scan done in March. At that time, there was a small ground-glass area. One might expect that this could most likely be related to aspiration. There is a history of severe dysphagia. The patient seems clinically somewhat dehydrated. Somewhat surprisingly she is not hypoxic at all despite the significant x-ray abnormality and despite complaining of shortness of breath. Obviously, the differential diagnosis of a cavitary lung lesion includes infectious problems that could be bacterial in nature. Tuberculosis infection cannot be excluded, although I think it is less likely. The patient states that she did have a grandfather that had tuberculosis many years ago that she had some exposure to. She states she was checked out and never found to have anything. This seems to be more acting like a routine bacterial infection and under the circumstances, a lung abscess would be the most likely. It would be advised that a QuantiFERON-TB Gold study be obtained for completeness. The patient currently is on vancomycin and Zosyn. I do agree with those. Consideration could be given to adding clindamycin for further anaerobic coverage in light of what appeared to be most likely a lung abscess. She will be having an ID consult, then we can see what their opinion is. The patient looks like she may need further hydration. The electrolytes should be followed carefully as today's bicarbonate was decreased to 18 and I would have concerns about her becoming acidotic. Thank you for asking me to assist in her care.
--- NOTE | 2018-05-31 14:52 | Progress Note ---
Progress Note Date of Service May 31, 2018. Progress Note ID Consult Dictated #[id number] A/P: 1. Cavitary Pna, suspect due to aspiration 2. Leukocytosis 3. + urine culture, colonization vs true pathogen 4. Sacral ulcer with suspected osteo on ct -Continue abx, blood cultures pending -Suspect TB less with acute change since March, but IGRA pending, can obtain previous ppd from sn[facility] as well -Will need sputum culture vs bronch culture -Overall prognosis poor, ID service to follow -Thank you
--- NOTE | 2018-05-31 16:19 | INFECT. DISEASE CONSULTATION ---
DATE OF CONSULTATION: 05/31/2018 HISTORY OF PRESENT ILLNESS: This is a 73-year-old female who was admitted from [facility] secondary to change in mental status and tachycardia. She was also found to have a leukocytosis of 29,000 in the Emergency Room. A chest x-ray was performed and showed cavitary pneumonia and a CAT scan of the abdomen and pelvis was done and showed a right lower lobe cavitation with surrounding pneumonia that is new from March of this year. She does have a history of MS, dysphagia, and aspiration. She also has chronic Vera catheterization and colostomy bag. On my examination, she is lethargic. She states that her breathing is a little weak as she describes it, but she denies any cough or chest pain. She denies any fevers or chills. She has been afebrile since admission to the hospital. She is tachycardic; however, her blood pressure has been stable. She currently is on room air on my examination but previously was on 2 L nasal cannula. She does appear comfortable; however, she is lethargic and does not provide significant review of systems. However, she denies fevers, chills, chest pain or cough. She was started empirically on IV Zosyn and vancomycin and appears to be tolerating these well. Her leukocytosis has improved somewhat. Infectious diseases was consulted for cavitary pneumonia. She has been placed in airborne isolation. QuantiFERON gold is pending at this time. I do not have results from her most recent PPD, but I suspect this is done yearly as she is currently a resident at [facility]. Her remaining review of systems is unremarkable. PAST MEDICAL HISTORY: Significant for MS, migraine headaches, functional paraplegia, chronic Vera catheterization, ostomy, ____, peptic ulcer disease, depression, GERD, hip fracture with repair, hysterectomy, colostomy, abdominal surgery, back surgery, cholecystectomy, and partial gastrectomy. FAMILY HISTORY: Noncontributory. SOCIAL HISTORY: Significant for history of tobacco use. She has no alcohol or drug use. She currently resides at [facility]. Per pulmonary consultation, there is some remote history of potential exposure to tuberculosis as a child; however, the patient does not reproduce this information on my examination. ALLERGIES: MORPHINE. MEDICATIONS: Boost, morphine, midodrine, subQ heparin, Elavil, Protonix, Topamax, Neurontin, Zosyn, vancomycin, Tylenol, Zofran, Imitrex, MiraLax. PHYSICAL EXAMINATION: VITAL SIGNS: She is afebrile, pulse is in the 120s, respiratory rate is ____, blood pressure ____/83, oxygen saturation is 95% on room air. GENERAL: She is awake and appropriate but lethargic. HEENT: Mucous membranes are dry. Extraocular muscles are intact. She is cachectic appearing. HEART: Regular and tachycardic. LUNGS: Decreased throughout. ABDOMEN: Soft. There is no edema. Left IV access is clean, dry, and intact. LABORATORY STUDIES: CBC today, white blood cell count 22, hemoglobin 10.1, platelets 219. Chemistry panel: Sodium 146, potassium 4.1, chloride 115, bicarbonate 18, BUN 42, creatinine 1.0 down from 1.5 yesterday, glucose 66. Her procalcitonin in the ER was 30.6. LFTs were normal. Urinalysis had moderate leukocyte esterase, greater than 30 wbc's, 4+ bacteria. QuantiFERON is pending. A urine culture has gram negative rods. Blood cultures are pending. No sputum cultures have been obtained. Chest x-ray done in the ER shows large consolidative opacity in the right lung base with central lucency suspicious for cavitary pneumonia. CT of the abdomen and pelvis again shows cavitary pneumonia, which is new from 04/10/2018. Large decubitus ulcer suspicious for osteomyelitis. ASSESSMENT AND PLAN: 1. Cavitary pneumonia. 2. Severe leukocytosis. 3. Positive urine culture, unclear if this is colonization or urinary tract infection in patient with chronic Vera catheter. 4. Sacral ulcer with suspicion for osteomyelitis. At this time, I would keep the patient on empiric antibiotics with vancomycin and Zosyn. I think that TB is less likely because she has had a fairly acute change in her CAT scan findings from March. It would be helpful to obtain previous PPD status at [facility] as she is in airborne isolation. She will need either 3 sputum cultures with negative AFB smears, if TB is suspected or bronchoscopy with negative AFB smear. Her blood cultures are pending. Urine culture is pending. The ID service will follow along with you. Thank you for this consultation.
[2018-05-31] MEDS: BOOST PLUS VANILLA OR BOOST GLUCOSE CONTROL STRAWBERRY PO SCH (17:20)
[2018-05-31] MEDS: OXYCODONE HCL IR 5 MG TAB (IMMEDIATE RELEASE) PO PRN (17:47)
[2018-05-31] MEDS ORDERED: SODIUM CHLORIDE 0.9% 500ML 500 ML IV ONE (19:00)
[2018-05-31 20:17] LABS: CALCIUM 7.2 mg/dl (8.5-10.1); CREATININE 0.96 mg/dl (0.60-1.20); POTASSIUM 3.4 mmol/L (3.5-5.1)
[2018-05-31] MEDS: AMITRIPTYLINE HCL 25 MG TAB PO SCH (20:18)
[2018-06-01] VITALS (7 sets, daily range): BP systolic 129–148; BP diastolic 71–97; PULSE 102–116; TEMP 36.1–37; O2SAT 94–97
[2018-06-01] MEDS: PIPERACILL/TAZOBAC IV 3.375 GM in DEXTROSE 5% 100ML 100 ML IV SCH ×3 (02:57→18:50)
[2018-06-01 04:33] LABS: HEMATOCRIT 31.9 % (37-47); HEMOGLOBIN 9.9 g/dL (12.0-16.0); MEAN CELL VOLUME 95.2 fL (80-100); MEAN CORPUSCULAR HEMOGLOBIN 29.6 pg (25-34); MEAN PLATELET VOLUME 10.9 fL (7.4-10.4); PLATELET COUNT 230 K/uL (130-400); RED CELL DISTRIBUTION WIDTH CV 18.4 % (11.5-14.5); RED CELL DISTRIBUTION WIDTH SD 63.7 fL (36.4-46.3); WHITE BLOOD COUNT 16.91 K/uL (4.8-10.8)
[2018-06-01 04:47] LABS: CALCIUM 7.2 mg/dl (8.5-10.1); CREATININE 0.71 mg/dl (0.60-1.20); POTASSIUM 3.5 mmol/L (3.5-5.1)
[2018-06-01 04:55] LABS: BASO % 0.1 %; BASO ABS # 0.01 K/uL (0-0.2); EOS % 0.1 %; EOS ABS # 0.02 K/uL (0-0.5); IG# 0.06 K/uL (0.00-0.02); LYMPH % 3.1 %; LYMPH ABS # 0.53 K/uL (1.2-3.4); MONO % 3.8 %; MONO ABS # 0.65 K/uL (0.11-0.59); NEUT % 92.5 %; NEUT ABS # 15.64 K/uL (1.4-6.5)
[2018-06-01] MEDS: NSS + 20MEQ KCL 1000ML 1,000 ML IV SCH (05:48)
[2018-06-01] MEDS: BOOST PLUS VANILLA OR BOOST GLUCOSE CONTROL STRAWBERRY PO SCH ×2 (07:30→16:44)
[2018-06-01] MEDS: TOPIRAMATE 25 MG TAB PO SCH ×2 (08:19→22:21)
[2018-06-01] MEDS: PANTOprazole SOD 40 MG TAB PO SCH ×2 (08:20→22:21)
[2018-06-01] MEDS: GABAPENTIN 300 MG CAP PO SCH ×3 (08:20→22:21)
[2018-06-01] MEDS: MIDODRINE 2.5 MG TAB PO SCH ×3 (08:20→17:27)
[2018-06-01] MEDS: HEPARIN SOD 5000 UNIT/0.5 ML CARP SQ SCH ×2 (08:23→22:35)
--- NOTE | 2018-06-01 09:03 | Pharmacy Progress Note ---
Pharmacy Abx Dose Progress Nt Date of Service Jun 01, 2018. Pharmacy Dosing Scope The patient's vancomycin was on hold. A random level was obtained this morning. Objective Height (Feet): 5 Height (Inches): 3.00 Weight (Kilograms): 40.200 Vital Signs (Past 12Hrs) Vital Signs Past 12 Hours Date Time Temp Pulse Resp B/P (MAP) Pulse Ox O2 Delivery O2 Flow Rate FiO2 06/01/18 07:41 36.9 102 18 134/76 (95) 95 06/01/18 02:59 36.1 105 14 131/81 (98) 94 Room Air 06/01/18 00:01 Room Air 05/31/18 23:29 36.4 103 14 115/75 (88) 96 Room Air Lab Results (24Hrs) Laboratory Tests (24 Hours) Test 06/01/18 04:05 White Blood Count 16.91 K/uL (4.8-10.8) H Red Blood Count 3.35 M/uL (4.2-5.4) L Hemoglobin 9.9 g/dL (12.0-16.0) L Hematocrit 31.9 % (37-47) L Mean Corpuscular Volume 95.2 fL (80-100) Mean Corpuscular Hemoglobin 29.6 pg (25-34) Mean Corpuscular Hemoglobin Concent 31.0 g/dl (32-36) L Platelet Count 230 K/uL (130-400) Mean Platelet Volume 10.9 fL (7.4-10.4) H Neutrophils (%) (Auto) 92.5 % Lymphocytes (%) (Auto) 3.1 % Monocytes (%) (Auto) 3.8 % Eosinophils (%) (Auto) 0.1 % Basophils (%) (Auto) 0.1 % Neutrophils # (Auto) 15.64 K/uL (1.4-6.5) H Lymphocytes # (Auto) 0.53 K/uL (1.2-3.4) L Monocytes # (Auto) 0.65 K/uL (0.11-0.59) H Eosinophils # (Auto) 0.02 K/uL (0-0.5) Basophils # (Auto) 0.01 K/uL (0-0.2) Micro Results Date/Time Source Procedure Growth Status 05/30/18 11:50 Blood Blood Culture - Preliminary NO GROWTH TO DATE. Resulted 05/30/18 11:40 Blood Blood Culture - Preliminary NO GROWTH TO DATE. Resulted 05/30/18 21:45 Nasal MRSA DNA Surveillance Screen - Final Specimen Negative for MRSA by DNA Probe Complete 05/30/18 11:33 Urine,Catheterized Urine Culture - Preliminary Escherichia Coli Resulted Risk Factors for Resistance * Resident in a usp or extended-care facility * Hospitalization for 48 hours or more within the past 90 days * History of infection with a multidrug-resistant organism: MRSA Assessment & Plan Assessment * 73 year old female receiving vancomycin/Zosyn for treatment of cavitary PNA * Day # 01/20 of antimicrobial therapy * ID is consulted * Random vancomycin level this AM 16.6 mcg/mL is therapeutic Plan Vancomycin IV * Vd ~0.7 L/kg, ke ~0.04hr-1, t1/2 ~18hr * Initiate vancomycin 750 mg IV every 24 hours (18mg/kg), opting to dose patient at a higher mg/kg with Q24H frequency * Goal trough level for PNA: 15 to 20 mcg/mL * Trough level ordered for: 06/02/18 at 0930 * Procalcitonin level ordered for: 06/02/18 with AM labs Piperacillin/tazobactam * Continue 3.375 g IV extended infusion every 8 hours for CrCl greater than 20 mL/min Pharmacy will continue to follow and will adjust dose/frequency as necessary. Thank you.
[2018-06-01] MEDS ORDERED: VANCOMYCIN TROUGH ONE (09:30)
[2018-06-01] MEDS: VANCOMYCIN IV 750 MG in SODIUM CHLORIDE 0.9% 250ML 250 ML IV SCH (09:31)
[2018-06-01] MEDS: OXYCODONE HCL IR 5 MG TAB (IMMEDIATE RELEASE) PO PRN ×2 (09:34→17:26)
--- NOTE | 2018-06-01 12:47 | Family Medicine Progress Note ---
Progress Note Date of Service Jun 01, 2018. Subjective JUAN JOSE overnight. Pt says she is tired this morning. Tolerating PO. + headache ROS See HPI for pertinent positives and negatives. Otherwise denies new vision change, chest pain, dyspnea, abdominal pain, loose or bloody stools, dysuria, or numbness tingling in extremities. Medications Current Inpatient Medications Medications (Trade) Dose Ordered Sig/Melvin Route Start Time Stop Time Status Last Admin Dose Admin Heparin Sodium (Porcine) (Heparin Sq 5000 Unit/0.5ml) 5,000 unit Q12 SQ 05/30/18 21:00 06/29/18 20:59 06/01/18 08:23 5,000 UNIT Potassium Chloride/Sodium Chloride 1,000 ml @ 80 mls/hr [id number] IV 05/30/18 19:30 06/29/18 17:01 Future Hold 06/01/18 05:48 80 MLS/HR Acetaminophen (Tylenol Tab) 650 mg Q4H PRN PO 05/30/18 17:15 06/29/18 17:14 Ondansetron HCl (Zofran Inj) 4 mg Q6H PRN IV 05/30/18 17:15 06/29/18 17:14 Polyethylene (Miralax Powder Packet) 17 gm DAILY PRN PO 05/30/18 17:15 06/29/18 17:14 Vancomycin HCl (Consult) 1 ea UD PRN N/A 05/30/18 18:15 06/29/18 18:14 Piperacillin Sod/ Tazobactam Sod 3.375 gm/Dextrose 115 ml @ 28.75 mls/ hr Q8H IV 05/30/18 19:00 06/06/18 18:59 06/01/18 02:57 28.75 MLS/HR Miscellaneous Information (Consult) 1 ea UD PRN N/A 05/30/18 18:15 06/29/18 18:14 Acetaminophen (Tylenol Supp) 650 mg Q6H PRN IN 05/30/18 18:15 06/29/18 18:14 Amitriptyline HCl (Elavil Tab) 75 mg HS PO 05/30/18 21:00 06/29/18 20:59 05/31/18 20:18 75 MG Ondansetron HCl (Zofran Tab) 4 mg Q8H PRN PO 05/30/18 18:15 06/29/18 18:14 06/01/18 08:20 4 MG Pantoprazole Sodium (Protonix Tab) 40 mg BID PO 05/30/18 21:00 06/29/18 20:59 06/01/18 08:20 40 MG Sumatriptan Succinate (Imitrex Tab) 100 mg DAILY PRN PO 05/30/18 18:15 06/29/18 18:14 05/31/18 10:58 100 MG Topiramate (Topamax Tab) 25 mg BID PO 05/30/18 21:00 06/29/18 20:59 06/01/18 08:19 25 MG Midodrine (Proamatine Tab) 5 mg TID@0800,1200,1800 PO 05/31/18 08:00 06/30/18 07:59 06/01/18 08:20 5 MG Gabapentin (Neurontin Cap) 300 mg TID PO 05/30/18 21:00 06/29/18 20:59 06/01/18 08:20 300 MG Heparin Sodium (Porcine) (Heparin 100 Unit/ml 5ml Flush) 5 ml PRN PRN IV 05/31/18 01:30 06/30/18 01:29 Morphine Sulfate (MoRPHine SULFATE INJ) 2 mg Q4HWA PRN IV 05/31/18 11:15 06/14/18 11:14 Future Hold Enteral Nutritional Formula (Boost Plus Vanilla) 1 can BIDM PO 05/31/18 16:45 06/30/18 16:44 05/31/18 17:20 1 CAN Oxycodone HCl (Roxicodone Immediate Rel Tab) 10 mg Q4HWA PRN PO 05/31/18 17:30 06/14/18 17:29 06/01/18 09:34 10 MG Vancomycin HCl 750 mg/Sodium Chloride 265 ml @ 125 mls/hr Q24H IV 06/01/18 10:00 06/06/18 09:59 06/01/18 09:31 125 MLS/HR Objective Vital Signs Date Time Temp Pulse Resp B/P (MAP) Pulse Ox O2 Delivery O2 Flow Rate FiO2 06/01/18 11:46 36.7 104 18 129/71 (90) 97 06/01/18 08:06 97 Room Air 06/01/18 07:41 36.9 102 18 134/76 (95) 95 06/01/18 02:59 36.1 105 14 131/81 (98) 94 Room Air 06/01/18 00:01 Room Air 05/31/18 23:29 36.4 103 14 115/75 (88) 96 Room Air 05/31/18 20:00 95 Room Air 05/31/18 19:25 36.5 112 22 119/74 (89) 95 Room Air 05/31/18 15:20 36.6 108 16 142/83 (102) 98 Room Air Physical Exam Notes: GENERAL: Awake, alert to self, and place, tired-appearing, in no distress. Responds to commands. Cachectic. HENT: Normocephalic, atraumatic. EYES: Normal conjunctiva. Sclera non-icteric. NECK: Supple. Full range of motion. no JVD RESPIRATORY: Diminshed breath sounds. Normal work of breathing. CARDIAC: Regular rate, normal rhythm. Extremities warm and well perfused. Pulses equal. ABDOMEN: Soft, non-distended. No tenderness to palpation. No rebound or guarding. No masses. Colostomy in tact, light brown stool no blood visible. LOWER EXTREMITIES: Calves are equal size bilaterally and non-tender. No edema. No discoloration. Atrophic limbs. NEURO: No motor deficits noted. : hill catheter draining clear yellow urine SKIN: No rash or jaundice noted. +senile purpura Laboratory Results 06/01/18 04:05 Red Blood Count 3.35, Mean Corpuscular Volume 95.2, Mean Corpuscular Hemoglobin 29.6, Mean Corpuscular Hemoglobin Concent 31.0, Mean Platelet Volume 10.9, Neutrophils (%) (Auto) 92.5, Lymphocytes (%) (Auto) 3.1, Monocytes (%) (Auto) 3.8, Eosinophils (%) (Auto) 0.1, Basophils (%) (Auto) 0.1, Neutrophils # (Auto) 15.64, Lymphocytes # (Auto) 0.53, Monocytes # (Auto) 0.65, Eosinophils # (Auto) 0.02, Basophils # (Auto) 0.01 06/01/18 04:05 Test 06/01/18 04:05 06/01/18 09:21 White Blood Count 16.91 K/uL (4.8-10.8) Red Blood Count 3.35 M/uL (4.2-5.4) Hemoglobin 9.9 g/dL (12.0-16.0) Hematocrit 31.9 % (37-47) Mean Corpuscular Volume 95.2 fL (80-100) Mean Corpuscular Hemoglobin 29.6 pg (25-34) Mean Corpuscular Hemoglobin Concent 31.0 g/dl (32-36) Platelet Count 230 K/uL (130-400) Mean Platelet Volume 10.9 fL (7.4-10.4) Neutrophils (%) (Auto) 92.5 % Lymphocytes (%) (Auto) 3.1 % Monocytes (%) (Auto) 3.8 % Eosinophils (%) (Auto) 0.1 % Basophils (%) (Auto) 0.1 % Neutrophils # (Auto) 15.64 K/uL (1.4-6.5) Lymphocytes # (Auto) 0.53 K/uL (1.2-3.4) Monocytes # (Auto) 0.65 K/uL (0.11-0.59) Eosinophils # (Auto) 0.02 K/uL (0-0.5) Basophils # (Auto) 0.01 K/uL (0-0.2) RDW Standard Deviation 63.7 fL (36.4-46.3) RDW Coefficient of Variation 18.4 % (11.5-14.5) Immature Granulocyte % (Auto) 0.4 % Immature Granulocyte # (Auto) 0.06 K/uL (0.00-0.02) Anion Gap 9.0 mmol/L (3-11) Est Creatinine Clear Calc Drug Dose 45.2 ml/min Estimated GFR () 99.3 Estimated GFR (Non- 85.7 BUN/Creatinine Ratio 44.1 (10-20) Calcium Level 7.2 mg/dl (8.5-10.1) Random Vancomycin Level 16.6 mcg/ml Vancomycin Level Trough 15.7 mcg/ml (SEE COMMENT) Assessment and Plan Mrs. Jasso is a 73F resident at [facility] with here with metabolic encephalopathy and tachycardia found to have an elevated white count of 29, chest xray with cavitary pneumonia and possible urinary tract infection and healing ulcer with wound vac. PMHx significant for multiple sclerosis, chronic migraines, functional paraplegia, urinary retention with chronic hill catheterization and also colostomy bag for incontinence complicated by sacral ulcer Metabolic encephalopathy in setting of sepsis due to right sided cavitary pneumonia -- HAP/TB, vs healing sacral ulcer, susp for osteomyelitis, and abnormal UA - 5x7cm cavitation on chest X ray and CT - Large decubitus ulcer with mild cortical erosion about the sacrum redemonstrated suspicious for osteomyelitis on CT, as below. - continue IV Vanc and Zosyn, to cover for HAP, osteomyelitis and e. coli UTI. - ID input greatly appreciated - PPD results aquired from [facility] -- negative for TB as of May 2018. - pro baldemar elevated - sputum cx pending collection, pt has a dry cough. - O2 per protocol, not hypoxic at this time Abnormal urinalysis - on background of chronic catheterization - zosyn as above, is sensitive Sinus tachycardia - infection/sepsis/dehydration - stable - QT/QTc 272/404, new PVCs present - likely 2/2 acute infection - optimize e-lytes - K>4, Mg >2. - hydration see JANN JANN - dehydration vs sequelae of infection - resolved with fluids. - Supervisor Cytology 1.5 on admission - her baseline appears to be <0.5. - likely 2/2 acute infection, dehydration. - Resolved with 1.5x maintenance fluid. Sacral decubitus ulcer - possible source of infection with suspicion for osteomyelitis - on review of records has been MRSA + - on precautions - wound care consult -- adequate treatment of osteomyelitis a prerequisite for wound vac to be replaced. - abx as above - On review of CT from her admission in [place] 08 May 2018 for loop colostomy creation, did make mention of a "chronic osteomyelitis" at coccyx stable from prior exam (March 2018). See below. Migraine - continue topamax, amitryptyline MS - routine care Paraplegia functional - hold lovenox given initial CrCl <20 - on heparin as below - continue gabapentin -- take down to 300 TID (from home 800 tid) due to poor cr cl, confusion. Delirium - treat underlying cause PUD - Protonix BID Frailty - nutrition consult - speech swallow consult DVT ppx: Heparin SQ q12h FEN/GI: - hold fluids, adequate PO intake. - Diet: regular, mech soft, +boost. Nutrition recs greatly appreciated Code status: DNR Resident Physician Supervision Note: I was present with Dr. Cruz during the history and exam. I discussed the case with the resident and agree with the findings and plan as documented in the note. Any exceptions or clarifications are listed here: Patient is examined in her room with at bedside. She does not appear in acute distress. Overall, she reports feeling better than yesterday. PPD (two step) completed at shelter was negative. Will continue current care; safety consultant input appreciated. Documented By: Christofer Thompson Continued [facility] stay due to: multiple IV medications needed Resident Tracking Resident Involvement: Resident Care Provided Care Provided: Adult Hospital Medicine
--- NOTE | 2018-06-01 15:14 | PULMONARY PROGRESS NOTE ---
DATE: 06/01/2018 TIME: 2:50 p.m. SUBJECTIVE: The patient is not the best historian. She does state, however, she thinks she feels a little better. She could not be too specific. It was determined that she had a negative PPD study done through her retirement on 05/13/2018 and 05/22/2018 and they were both negative. In light of the relatively low likelihood of TB and in light of the PPD findings, she was taken out of respiratory isolation. OBJECTIVE: GENERAL: The patient appeared comfortable. She was smiling more today. VITAL SIGNS: Temperature is 36.7. Heart rate is 104 per minute. The rhythm is regular. Blood pressure 129/71. LUNGS: Lung marcos reveal severely diminished breath sounds. The patient is weak and I think she has marked limitations as to what she can do taking deep breaths. She has not expectorated any sputum. Saturation is 97% on room air. Respiratory rate is 18 breaths per minute. EXTREMITIES: Showed no cyanosis, clubbing or edema. LABORATORY DATA: White blood cell count continues to improve. It started off at 29.89 and today it is down to 16.91. Hemoglobin today 9.9. Platelets 230,000. Electrolytes today show sodium 145, potassium 3.5, chloride 118, bicarbonate 18. The bicarbonate level stays low potentially suggesting an acidosis. Her BUN has improved from 42 down to 31 and her creatinine has improved from 1.06 down to 0.71. Urine culture is positive for probable pseudomonas species. It is reported as sensitive to ampicillin sulbactam. It is possible the Zosyn may cover. IMPRESSIONS: 1. Right lung abscess. 2. MS. 3. Dysphagia - speech eval pending. 4. Leukocytosis - improved. 5. Dehydration - improved. 6. Urinary tract infection. RECOMMENDATIONS: The patient appears better. I am still somewhat bothered by the low bicarbonate level. She certainly does not appear in any distress. Would continue with the current antibiotics. Early next week, we will obtain a followup chest x-ray to see if there has been any improvement in the cavitary infiltrate.
[2018-06-01] MEDS: AMITRIPTYLINE HCL 25 MG TAB PO SCH (22:21)
[2018-06-02] VITALS (9 sets, daily range): BP systolic 100–191; BP diastolic 63–102; PULSE 73–123; TEMP 36.4–37.1; O2SAT 92–99
[2018-06-02] MEDS: PIPERACILL/TAZOBAC IV 3.375 GM in DEXTROSE 5% 100ML 100 ML IV SCH ×3 (02:37→18:25)
[2018-06-02 05:37] LABS: CALCIUM 7.8 mg/dl (8.5-10.1); CREATININE 0.67 mg/dl (0.60-1.20); POTASSIUM 3.2 mmol/L (3.5-5.1)
[2018-06-02] MEDS: BOOST PLUS VANILLA OR BOOST GLUCOSE CONTROL STRAWBERRY PO SCH ×2 (07:30→16:31)
[2018-06-02] MEDS: TOPIRAMATE 25 MG TAB PO SCH ×2 (08:00→21:10)
[2018-06-02] MEDS: MIDODRINE 2.5 MG TAB PO SCH ×3 (08:00→16:31)
[2018-06-02] MEDS: PANTOprazole SOD 40 MG TAB PO SCH (08:00)
[2018-06-02] MEDS: NSS + 20MEQ KCL 1000ML 1,000 ML IV SCH ×3 (08:01→23:40)
[2018-06-02] MEDS: HEPARIN SOD 5000 UNIT/0.5 ML CARP SQ SCH ×2 (08:07→21:15)
[2018-06-02] MEDS ORDERED: VANCOMYCIN TROUGH ONE (09:30)
[2018-06-02 09:42] LABS: HEMATOCRIT 31.5 % (37-47); HEMOGLOBIN 9.9 g/dL (12.0-16.0); MEAN CORPUSCULAR HEMOGLOBIN 29.6 pg (25-34); MEAN PLATELET VOLUME 10.2 fL (7.4-10.4); PLATELET COUNT 259 K/uL (130-400); RED CELL DISTRIBUTION WIDTH CV 18.3 % (11.5-14.5); RED CELL DISTRIBUTION WIDTH SD 62.5 fL (36.4-46.3); WHITE BLOOD COUNT 18.31 K/uL (4.8-10.8)
[2018-06-02 09:51] LABS: MEAN CORPUSCULAR HGB CONC 31.4 g/dl (32-36)
[2018-06-02 10:09] LABS: BASO % 0.1 %; BASO ABS # 0.01 K/uL (0-0.2); EOS % 0.4 %; EOS ABS # 0.08 K/uL (0-0.5); IG# 0.06 K/uL (0.00-0.02); LYMPH % 2.5 %; LYMPH ABS # 0.46 K/uL (1.2-3.4); MONO % 4.9 %; NEUT % 91.8 %
[2018-06-02] MEDS: VANCOMYCIN IV 750 MG in SODIUM CHLORIDE 0.9% 250ML 250 ML IV SCH (10:11)
--- NOTE | 2018-06-02 10:25 | DIAGNOSTIC IMAGING REPORT ---
KUB HISTORY: abdominal pain COMPARISON: KUB 08/20/2017. FINDINGS: Extensive thoracolumbar spinal fusion hardware. Internal fixation of old, healed bilateral hip fractures. The hardware appears intact. There is a left lower quadrant ostomy identified. Nondilated gas-filled loops of large and small bowel. No evidence for bowel obstruction. Suture material within the left side of the abdomen. Cholecystectomy. Right lower lobe cavitary lesion is again noted. No renal calculi. No ureteral calculi. No pneumoperitoneum or pneumatosis. IMPRESSION: 1. No evidence for bowel obstruction. 2. Redemonstration of the right lower lobe cavitary lesion. Electronically signed by: Yong Khan M.D. 06/02/2018 10:24 AM Dictated Date/Time: 06/02/2018 10:22 AM
--- NOTE | 2018-06-02 10:30 | Pharmacy Progress Note ---
Pharmacy Abx Dose Short Note Date of Service Jun 02, 2018. Assessment & Plan Assessment Item Value Date Time Vancomycin Level Trough 17.0 mcg/ml 06/02/18 0917 73 year old female receiving Vancomycin & Zosyn for treatment of cavitary pneumonia Day # 4 of antimicrobial therapy. Patient's initial JANN seems to have resolved and patient is closer to her baseline SCr of 0.5. Item Value Date Time Creatinine 0.67 mg/dl 06/02/18 0443 Est Creatinine Clear Calc Drug Dose 48.9 ml/min 06/02/18 0443 Plan Vancomycin * Trough level of 17.0 mcg/mL is therapeutic * Continue dose of 750 mg IV every 24 hours * Goal trough level for pulmonary source : 15 to 20 mcg/mL * If patient continues on Vancomycin will order another trough in a 2-3 days. Will also continue Zosyn 3.375 IV q8h [facility] Pharmacy will continue to follow and will adjust dose/frequency as necessary. Thank you.
--- NOTE | 2018-06-02 10:48 | PULMONARY PROGRESS NOTE ---
DATE: 06/02/2018 TIME: 9:05 a.m. SUBJECTIVE: The patient is doing poorly. She has become more lethargic and less arousable. She has had an increase in heart rate into the 130s. The patient has been complaining of some abdominal pain according to nursing staff. Her arrived to see her when I was examining the patient. He states he had noted last night that when he was talking with her on the phone, her speech was more garbled. OBJECTIVE: GENERAL: The patient is weak. She is lethargic but arousable. She verbalized some words with difficulty. She was very difficult to understand her speech. VITAL SIGNS: Temperature is 36.5. Current heart rate is 132. The rhythm is regular. Blood pressure is 158/90. CHEST: Respiratory rate is 18. The breath sounds again are diminished. Her oxygen saturation on room air is 93%. I do not hear rales or rhonchi, but her airflow is so diminished that it would not be surprising. ABDOMEN: Feels soft. She does wince when I touch her abdomen even mildly. Bowel sounds were present but decreased. She does have a colostomy in place. EXTREMITIES: Show +1 to +2 edema bilaterally. She is not noted to move her lower extremities. DATA: Chemistry study today shows sodium 146, potassium 3.2, chloride 119, bicarb 20. BUN was 21 with a creatinine of 0.67. These are much improved compared with admission when the BUN was 42 and a creatinine was 1.06. Blood sugar this morning was 82. Procalcitonin is elevated at 4.63. Previously, the procalcitonin had been 30.69. IMPRESSIONS: 1. Right lung abscess. 2. Multiple sclerosis. 3. Dysphagia. 4. Leukocytosis -- improved. 5. Dehydration -- improved. 6. Urinary tract infection with gram-negative bacilli. The reasons for the patient's worsening are not clear. Her procalcitonin levels have improved significantly. Her kidney function has improved significantly. The leukocytosis has improved. She is not significantly hypoxic even on room air. She would be at risk for pulmonary emboli due to her immobility. She has been on subQ heparin. I would have expected more hypoxia. The patient is a DNR. She is on IV fluids. She is receiving vancomycin and Zosyn. Everything has been about the same. I considered doing an arterial blood gas in light of her lethargy. I do not strongly suspect high pCO2; however, in light of the low carbon dioxide off electrolytes. Curiously, the CO2 was actually improved from 18 up to 20. She had been looking like she might have a metabolic acidosis perhaps. I am going to put in a request to check a CBC to make sure her hemoglobin has not dropped. We will also check D-dimer and troponin. It may just be that her multiple infections and overall poor status are taking its toll.
[2018-06-02 12:43] LABS: QUANTIF MITOGEN-NIL 0.48 IU/ML; QUANTIFERON INDETERMINATE (NEGATIVE); QUANTIFERON NIL 0.01 IU/ML
--- NOTE | 2018-06-02 13:14 | DIAGNOSTIC IMAGING REPORT ---
CHEST ONE VIEW PORTABLE HISTORY: Short of breath. COMPARISON: Chest 05/30/2018. FINDINGS: Redemonstration of the 8 cm cavitary opacity within the right lower lobe. This remains unchanged. Left subclavian Port-A-Cath terminates at the distal SVC. Extensive spinal fusion hardware. No pneumothorax. There are trace bilateral pleural effusions. The heart is normal in size. Mild interstitial thickening persists. A few left basilar linear densities favor subsegmental atelectasis. IMPRESSION: 1. No change in the 8 cm cavitary opacity within the right lower lobe. This could represent a cavitary pneumonia or mass. Recommend follow to ensure resolution. 2. Interval development of trace bilateral pleural effusions. Electronically signed by: Yong Khan M.D. 06/02/2018 1:13 PM Dictated Date/Time: 06/02/2018 1:11 PM
--- NOTE | 2018-06-02 13:32 | DIAGNOSTIC IMAGING REPORT ---
BILATERAL LOWER EXTREMITY VENOUS DOPPLER HISTORY: Elevated d-dimer. Lower extremity edema. COMPARISON STUDY: None. FINDINGS: There is thickening of the wall the left common femoral vein which is not completely compressible. This favors chronic thrombus/thrombophlebitis. However, the lumen is patent. No acute DVT within the bilateral lower extremities. There is bilateral lower extremity edema. IMPRESSION: 1. 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 2. No acute DVT within the bilateral lower extremities. Electronically signed by: Yong Khan M.D. 06/02/2018 1:31 PM Dictated Date/Time: 06/02/2018 1:27 PM
[2018-06-02] MEDS ORDERED: OPTIRAY 320 IV PRN (14:00)
--- NOTE | 2018-06-02 15:15 | DIAGNOSTIC IMAGING REPORT ---
CHEST CTA for PULMONARY ARTERIES CT DOSE: 188.47 mGy.cm HISTORY: Elevated D dimer. Tachycardia. TECHNIQUE: Multiaxial CT images of the chest were performed following the intravenous administration of contrast to evaluate the pulmonary arteries. Maximal intensity projection images were also obtained. A dose lowering technique was utilized adhering to the principles of ALARA. COMPARISON STUDY: Chest CT 05/09/2017. FINDINGS: Normal caliber thoracic aorta with no evidence for dissection. The heart is enlarged. No filling defects within the pulmonary arteries to suggest pulmonary embolus. Extensive thoracolumbar spinal fusion hardware. No suspicious lytic or blastic osseous lesions. The visualized liver and spleen are unremarkable. Postoperative changes at the stomach. Multiple thyroid nodules are noted. Left subclavian Port-A-Cath terminates at the SVC. There are small bilateral pleural effusions. No mediastinal or hilar lymphadenopathy. No pneumothorax. A 3 mm nodule within the left lung apex, unchanged. Patchy groundglass densities within the left upper lobe have improved. There are few linear densities within the left lower lobe suggestive of subsegmental atelectasis. Round area of consolidation seen within the right lower lobe with central cavitation. This measures 7.3 x 6.0 cm. The central airways are patent. IMPRESSION: 1. No evidence for pulmonary embolus. 2. A 7.3 x 6.0 cm cavitary lesion within the right lower lobe. This could represent a mass or a pneumonia secondary to aspiration or less likely tuberculosis. Bronchoscopy is recommended for further evaluation. 3. Small bilateral pleural effusions. 4. Improved aeration within the left upper lobe airspace opacities. Electronically signed by: Yong Khan M.D. 06/02/2018 3:13 PM Dictated Date/Time: 06/02/2018 2:59 PM
--- NOTE | 2018-06-02 18:16 | Family Medicine Progress Note ---
Progress Note Date of Service Jun 02, 2018. Subjective Pt more lethargic today, speech garbled, voice weak. Not able to eat breakfast, lunch due to lethargy. Slightly more tachycardic this AM, however is oxygenating well. ROS limited due to pt's mental status Medications Current Inpatient Medications Medications (Trade) Dose Ordered Sig/Melvin Route Start Time Stop Time Status Last Admin Dose Admin Heparin Sodium (Porcine) (Heparin Sq 5000 Unit/0.5ml) 5,000 unit Q12 SQ 05/30/18 21:00 06/29/18 20:59 06/02/18 08:07 5,000 UNIT Acetaminophen (Tylenol Tab) 650 mg Q4H PRN PO 05/30/18 17:15 06/29/18 17:14 Ondansetron HCl (Zofran Inj) 4 mg Q6H PRN IV 05/30/18 17:15 06/29/18 17:14 Polyethylene (Miralax Powder Packet) 17 gm DAILY PRN PO 05/30/18 17:15 06/29/18 17:14 Vancomycin HCl (Consult) 1 ea UD PRN N/A 05/30/18 18:15 06/29/18 18:14 Piperacillin Sod/ Tazobactam Sod 3.375 gm/Dextrose 115 ml @ 28.75 mls/ hr Q8H IV 05/30/18 19:00 06/06/18 18:59 06/02/18 18:25 28.75 MLS/HR Miscellaneous Information (Consult) 1 ea UD PRN N/A 05/30/18 18:15 06/29/18 18:14 Acetaminophen (Tylenol Supp) 650 mg Q6H PRN VT 05/30/18 18:15 06/29/18 18:14 Amitriptyline HCl (Elavil Tab) 75 mg HS PO 05/30/18 21:00 06/29/18 20:59 06/01/18 22:21 75 MG Ondansetron HCl (Zofran Tab) 4 mg Q8H PRN PO 05/30/18 18:15 06/29/18 18:14 06/01/18 08:20 4 MG Pantoprazole Sodium (Protonix Tab) 40 mg BID PO 05/30/18 21:00 06/29/18 20:59 06/01/18 22:21 40 MG Sumatriptan Succinate (Imitrex Tab) 100 mg DAILY PRN PO 05/30/18 18:15 06/29/18 18:14 05/31/18 10:58 100 MG Topiramate (Topamax Tab) 25 mg BID PO 05/30/18 21:00 06/29/18 20:59 06/01/18 22:21 25 MG Midodrine (Proamatine Tab) 5 mg TID@0800,1200,1800 PO 05/31/18 08:00 06/30/18 07:59 06/02/18 12:11 5 MG Gabapentin (Neurontin Cap) 300 mg TID PO 05/30/18 21:00 06/29/18 20:59 Future Hold 06/01/18 22:21 300 MG Heparin Sodium (Porcine) (Heparin 100 Unit/ml 5ml Flush) 5 ml PRN PRN IV 05/31/18 01:30 06/30/18 01:29 Morphine Sulfate (MoRPHine SULFATE INJ) 2 mg Q4HWA PRN IV 05/31/18 11:15 06/14/18 11:14 Future Hold Enteral Nutritional Formula (Boost Plus Vanilla) 1 can BIDM PO 05/31/18 16:45 06/30/18 16:44 06/02/18 16:31 1 CAN Oxycodone HCl (Roxicodone Immediate Rel Tab) 10 mg Q4HWA PRN PO 05/31/18 17:30 06/14/18 17:29 06/01/18 17:26 10 MG Vancomycin HCl 750 mg/Sodium Chloride 265 ml @ 125 mls/hr Q24H IV 06/01/18 10:00 06/06/18 09:59 06/02/18 10:11 125 MLS/HR Potassium Chloride/Sodium Chloride 1,000 ml @ 100 mls/hr Q10H IV 06/02/18 11:00 07/02/18 07:59 06/02/18 10:22 75 MLS/HR Ioversol (Optiray 320) 100 ml UD PRN IV 06/02/18 14:00 06/06/18 13:59 Potassium Chloride 20 meq/ Prmx 100 ml @ 50 mls/hr NOW STAT IV 06/02/18 18:53 06/02/18 20:52 06/02/18 19:30 50 MLS/HR Objective Vital Signs Date Time Temp Pulse Resp B/P (MAP) Pulse Ox O2 Delivery O2 Flow Rate FiO2 06/02/18 19:38 36.6 114 22 173/96 (121) 93 Room Air 06/02/18 15:37 36.8 116 20 166/85 (112) 96 Room Air 06/02/18 11:27 36.4 108 18 144/88 (106) 92 06/02/18 11:16 36.4 73 18 100/63 (75) 99 Room Air 06/02/18 08:00 Room Air 06/02/18 07:40 36.5 123 18 158/90 (112) 93 Room Air 06/02/18 06:43 36.6 114 18 148/83 (104) 93 Room Air 06/02/18 03:00 36.7 110 16 131/75 (93) 95 Room Air 06/01/18 23:08 37.0 116 17 148/97 (114) 96 Room Air 06/01/18 20:00 Room Air Physical Exam Notes: GENERAL: Lethargic, somewhat arousable, in no distress. Responds to some commands. Cachectic. HENT: Normocephalic, atraumatic. EYES: Normal conjunctiva. Sclera non-icteric. NECK: Supple. Full range of motion. no JVD RESPIRATORY: Diminished breath sounds. Normal work of breathing. CARDIAC: Regular rate, normal rhythm. Extremities warm and well perfused. Pulses equal. ABDOMEN: Soft, non-distended. Moderate tenderness to palpation. Colostomy in tact, light brown stool no blood visible. LOWER EXTREMITIES: Calves are equal size bilaterally and non-tender. No edema. No discoloration. Atrophic limbs. NEURO: No motor deficits noted. : hill catheter draining clear yellow urine SKIN: No rash or jaundice noted. +senile purpura Laboratory Results 06/02/18 09:31 Red Blood Count 3.35, Mean Corpuscular Volume 94.0, Mean Corpuscular Hemoglobin 29.6, Mean Corpuscular Hemoglobin Concent 31.4, Mean Platelet Volume 10.2, Neutrophils (%) (Auto) 91.8, Lymphocytes (%) (Auto) 2.5, Monocytes (%) (Auto) 4.9, Eosinophils (%) (Auto) 0.4, Basophils (%) (Auto) 0.1, Neutrophils # (Auto) 16.80, Lymphocytes # (Auto) 0.46, Monocytes # (Auto) 0.90, Eosinophils # (Auto) 0.08, Basophils # (Auto) 0.01 06/02/18 04:43 Test 06/02/18 04:43 06/02/18 09:17 06/02/18 09:31 06/02/18 18:51 Anion Gap 7.0 mmol/L (3-11) Est Creatinine Clear Calc Drug Dose 48.9 ml/min Estimated GFR () 102.5 Estimated GFR (Non- 88.4 BUN/Creatinine Ratio 32.2 (10-20) Calcium Level 7.8 mg/dl (8.5-10.1) Procalcitonin 4.63 ng/ml (0-0.5) Vancomycin Level Trough 17.0 mcg/ml (SEE COMMENT) White Blood Count 18.31 K/uL (4.8-10.8) Red Blood Count 3.35 M/uL (4.2-5.4) Hemoglobin 9.9 g/dL (12.0-16.0) Hematocrit 31.5 % (37-47) Mean Corpuscular Volume 94.0 fL (80-100) Mean Corpuscular Hemoglobin 29.6 pg (25-34) Mean Corpuscular Hemoglobin Concent 31.4 g/dl (32-36) Platelet Count 259 K/uL (130-400) Mean Platelet Volume 10.2 fL (7.4-10.4) Neutrophils (%) (Auto) 91.8 % Lymphocytes (%) (Auto) 2.5 % Monocytes (%) (Auto) 4.9 % Eosinophils (%) (Auto) 0.4 % Basophils (%) (Auto) 0.1 % Neutrophils # (Auto) 16.80 K/uL (1.4-6.5) Lymphocytes # (Auto) 0.46 K/uL (1.2-3.4) Monocytes # (Auto) 0.90 K/uL (0.11-0.59) Eosinophils # (Auto) 0.08 K/uL (0-0.5) Basophils # (Auto) 0.01 K/uL (0-0.2) RDW Standard Deviation 62.5 fL (36.4-46.3) RDW Coefficient of Variation 18.3 % (11.5-14.5) Immature Granulocyte % (Auto) 0.3 % Immature Granulocyte # (Auto) 0.06 K/uL (0.00-0.02) D-Dimer 3680 ug/L FEU (0-500) Troponin I 0.171 ng/ml (0-0.045) Assessment and Plan Mrs. Jasso is a 73F with metabolic encephalopathy and tachycardia found to have an elevated white count of 29 on admission, chest xray with cavitary pneumonia and possible urinary tract infection and healing ulcer with wound vac and chronic osteomyelitis. PMHx significant for multiple sclerosis, chronic migraines, functional paraplegia, urinary retention with chronic hill catheterization and also colostomy bag for incontinence complicated by sacral ulcer, osteomyelitis Metabolic encephalopathy in setting of sepsis due to right sided cavitary pneumonia -- HAP, vs healing sacral ulcer, susp for osteomyelitis, and abnormal UA - continue IV Vanc and Zosyn, to cover for HAP, osteomyelitis and e. coli UTI. - ID input greatly appreciated - PPD results aquired from [facility] -- negative for TB as of May 2018. - WBC increased today to 16.9 from 18.3. More lethargic today. - KUB done today showed no acute abnormality Elevated d-dimer - elevated 3K - CT for PE, and venous dopplers essentially negative. Abnormal urinalysis - + for e. coli and pseudomonas - zosyn as above, is sensitive Sinus tachycardia - infection/sepsis/dehydration - stable - QT/QTc 272/404, new PVCs present - likely 2/2 acute infection - optimize e-lytes - K>4, Mg >2. replete with 20meq this afternoon IV since not tolerating PO at the moment due to lethargy - hydration see JANN Sacral decubitus ulcer - possible source of infection with suspicion for osteomyelitis - on review of records has been MRSA + - on precautions - wound care consult -- adequate treatment of osteomyelitis a prerequisite for wound vac to be replaced. - abx as above - On review of CT from her admission in [place] 08 May 2018 for loop colostomy creation, did make mention of a "chronic osteomyelitis" at coccyx stable from prior exam (March 2018). Migraine - continue topamax - low enough dose that can stop this cold turkey no issues since not tolerating PO - amitryptyline - may crush MS - routine care Paraplegia functional - hold lovenox given initial CrCl <20 - on heparin as below - home gabapentin -- consider holding given worsening lethargy Delirium - treat underlying cause PUD - Protonix BID made IV Frailty - nutrition consult - speech swallow consult DVT ppx: Heparin SQ q12h FEN/GI: - + NSS + 20meqK @ 100 ml/hr due to no po intake today - Diet: regular, mech soft, +boost. Nutrition recs greatly appreciated Code status: DNR Resident Physician Supervision Note: I was present with Dr. Cruz during the history and exam. I discussed the case with the resident and agree with the findings and plan as documented in the note. I also discussed the case with Dr. Woods. She appears more tired today, although she has no specific/localized complaints. Her speech is difficult to understand at times, but at other times, it is very clear. She is alert, oriented, and able to answer questions. Her WBC count it slightly up, although she is afebrile. Her renal profile is improved; other than her tachycardia (which is her baseline), she remains hemodynamically stable. D-Dimer was elevated, but LE doppler and CTA negative for VTE. Will continue gentle hydration and monitor VS and labs. Documented By: Christofer Thompson Continued [facility] stay due to: abnormal vital signs, multiple IV medications needed Resident Tracking Resident Involvement: Resident Care Provided Care Provided: Adult Hospital Medicine
[2018-06-02] MEDS ORDERED: POTASSIUM CHLR 20 MEQ / WTR 20 MEQ in PREMIXED WATER 100 ML IV STA (18:53)
[2018-06-02] MEDS: AMITRIPTYLINE HCL 25 MG TAB PO SCH (21:08)
[2018-06-02] MEDS: PANTOprazole INJ 40 MG in SYRINGE 0 ML IV SCH (21:29)
[2018-06-03] VITALS (12 sets, daily range): BP systolic 159–176; BP diastolic 85–101; PULSE 113–128; TEMP 36.4–36.8; O2SAT 93–95
[2018-06-03] MEDS: HYDROmorphone INJ 0.5 MG/0.5 ML SYR IV PRN ×4 (00:05→16:55)
[2018-06-03] MEDS: PIPERACILL/TAZOBAC IV 3.375 GM in DEXTROSE 5% 100ML 100 ML IV SCH ×3 (02:35→18:12)
[2018-06-03 05:11] LABS: HEMATOCRIT 30.4 % (37-47); HEMOGLOBIN 9.7 g/dL (12.0-16.0); MEAN CELL VOLUME 93.3 fL (80-100); MEAN CORPUSCULAR HEMOGLOBIN 29.8 pg (25-34); MEAN CORPUSCULAR HGB CONC 31.9 g/dl (32-36); MEAN PLATELET VOLUME 10.3 fL (7.4-10.4); PLATELET COUNT 291 K/uL (130-400); RED CELL DISTRIBUTION WIDTH CV 18.2 % (11.5-14.5); RED CELL DISTRIBUTION WIDTH SD 61.6 fL (36.4-46.3); WHITE BLOOD COUNT 16.69 K/uL (4.8-10.8)
[2018-06-03 05:29] LABS: EOS % 0.3 %; EOS ABS # 0.05 K/uL (0-0.5); LYMPH % 3.5 %; LYMPH ABS # 0.59 K/uL (1.2-3.4); MONO % 4.9 %; MONO ABS # 0.82 K/uL (0.11-0.59); NEUT % 90.7 %; NEUT ABS # 15.13 K/uL (1.4-6.5)
[2018-06-03 05:46] LABS: CREATININE 0.6 mg/dl (0.60-1.20); POTASSIUM 2.8 mmol/L (3.5-5.1)
[2018-06-03] MEDS: TOPIRAMATE 25 MG TAB PO SCH ×3 (08:04→20:49)
[2018-06-03] MEDS: BOOST PLUS VANILLA OR BOOST GLUCOSE CONTROL STRAWBERRY PO SCH ×2 (08:04→15:25)
[2018-06-03] MEDS: HEPARIN SOD 5000 UNIT/0.5 ML CARP SQ SCH ×2 (08:06→20:16)
[2018-06-03] MEDS: NSS + 20MEQ KCL 1000ML 1,000 ML IV SCH ×2 (08:07→18:12)
[2018-06-03] MEDS: PANTOprazole INJ 40 MG in SYRINGE 0 ML IV SCH ×2 (08:13→20:16)
[2018-06-03] MEDS: POTASSIUM CHLR 10 MEQ / WTR 100 ML IV SCH ×6 (08:44→14:18)
[2018-06-03] MEDS: VANCOMYCIN IV 750 MG in SODIUM CHLORIDE 0.9% 250ML 250 ML IV SCH (09:58)
[2018-06-03] MEDS ORDERED: METHYLPREDNISOLONE IV 1,000 MG in DEXTROSE 5% 250ML 250 ML IV ONE (14:15)
--- NOTE | 2018-06-03 14:59 | Family Medicine Progress Note ---
Progress Note Date of Service Jun 03, 2018. Subjective JUAN JOSE overnight. Garbled speech continues, very difficult to hear. Remains tachycardic, BP is starting to rise. Pt seems alert, but then at times has indecipherable speech, drooped face. Don at bedside thinks she looks about the same today as yesterday, and says that she usually would get garbled speech every time she had a UTI. Says her MS flares have also presented with facial symptoms, but mostly lower extremity symptoms in the past. He is tearful , saying maybe she is giving up. Says she told her preacher last she's not sure how much longer she can go on. ROS limited due to patient's mental status but does not verbally endorse any pain. Medications Current Inpatient Medications Medications (Trade) Dose Ordered Sig/Melvin Route Start Time Stop Time Status Last Admin Dose Admin Heparin Sodium (Porcine) (Heparin Sq 5000 Unit/0.5ml) 5,000 unit Q12 SQ 05/30/18 21:00 06/29/18 20:59 06/03/18 08:06 5,000 UNIT Acetaminophen (Tylenol Tab) 650 mg Q4H PRN PO 05/30/18 17:15 06/29/18 17:14 Ondansetron HCl (Zofran Inj) 4 mg Q6H PRN IV 05/30/18 17:15 06/29/18 17:14 Polyethylene (Miralax Powder Packet) 17 gm DAILY PRN PO 05/30/18 17:15 06/29/18 17:14 Vancomycin HCl (Consult) 1 ea UD PRN N/A 05/30/18 18:15 06/29/18 18:14 Piperacillin Sod/ Tazobactam Sod 3.375 gm/Dextrose 115 ml @ 28.75 mls/ hr Q8H IV 05/30/18 19:00 06/06/18 18:59 06/03/18 11:50 28.75 MLS/HR Miscellaneous Information (Consult) 1 ea UD PRN N/A 05/30/18 18:15 06/29/18 18:14 Acetaminophen (Tylenol Supp) 650 mg Q6H PRN [place] 05/30/18 18:15 06/29/18 18:14 Amitriptyline HCl (Elavil Tab) 75 mg HS PO 05/30/18 21:00 06/29/18 20:59 06/02/18 21:08 75 MG Ondansetron HCl (Zofran Tab) 4 mg Q8H PRN PO 05/30/18 18:15 06/29/18 18:14 06/01/18 08:20 4 MG Pantoprazole Sodium (Protonix Tab) 40 mg BID PO 05/30/18 21:00 06/29/18 20:59 Future Hold 06/01/18 22:21 40 MG Sumatriptan Succinate (Imitrex Tab) 100 mg DAILY PRN PO 05/30/18 18:15 06/29/18 18:14 05/31/18 10:58 100 MG Topiramate (Topamax Tab) 25 mg BID PO 05/30/18 21:00 06/29/18 20:59 06/02/18 21:10 25 MG Midodrine (Proamatine Tab) 5 mg TID@0800,1200,1800 PO 05/31/18 08:00 06/30/18 07:59 Future Hold 06/02/18 12:11 5 MG Gabapentin (Neurontin Cap) 300 mg TID PO 05/30/18 21:00 06/29/18 20:59 Future Hold 06/01/18 22:21 300 MG Heparin Sodium (Porcine) (Heparin 100 Unit/ml 5ml Flush) 5 ml PRN PRN IV 05/31/18 01:30 06/30/18 01:29 Morphine Sulfate (MoRPHine SULFATE INJ) 2 mg Q4HWA PRN IV 05/31/18 11:15 06/14/18 11:14 Future Hold Enteral Nutritional Formula (Boost Plus Vanilla) 1 can BIDM PO 05/31/18 16:45 06/30/18 16:44 06/02/18 16:31 1 CAN Oxycodone HCl (Roxicodone Immediate Rel Tab) 10 mg Q4HWA PRN PO 05/31/18 17:30 06/14/18 17:29 06/01/18 17:26 10 MG Vancomycin HCl 750 mg/Sodium Chloride 265 ml @ 125 mls/hr Q24H IV 06/01/18 10:00 06/06/18 09:59 06/03/18 09:58 125 MLS/HR Potassium Chloride/Sodium Chloride 1,000 ml @ 100 mls/hr Q10H IV 06/02/18 11:00 07/02/18 07:59 06/03/18 08:07 100 MLS/HR Ioversol (Optiray 320) 100 ml UD PRN IV 06/02/18 14:00 06/06/18 13:59 Pantoprazole Sodium 40 mg/ Syringe 10 ml @ 5 mls/min BID@0900,2100 IV 06/02/18 21:00 07/02/18 20:59 06/03/18 08:13 5 MLS/MIN Hydromorphone HCl (Dilaudid Inj) 0.5 mg Q4H PRN IV 06/02/18 20:15 06/16/18 20:14 06/03/18 10:50 0.5 MG Potassium Chloride 100 ml @ 100 mls/hr Q1H IV 06/03/18 09:00 06/03/18 14:59 06/03/18 14:18 100 MLS/HR Methylprednisolone Sodium Succinate 1000 mg/Dextrose 266 ml @ 250 mls/hr ONE ONCE IV 06/03/18 14:15 06/03/18 15:18 Objective Vital Signs Date Time Temp Pulse Resp B/P (MAP) Pulse Ox O2 Delivery O2 Flow Rate FiO2 06/03/18 11:31 36.5 128 16 161/96 (117) 93 06/03/18 08:00 Room Air 06/03/18 06:40 36.6 121 19 160/89 (112) 95 Room Air 06/03/18 03:25 36.8 119 22 173/96 (121) 94 Room Air 06/03/18 01:17 164/92 (116) 06/02/18 23:46 170/102 (124) 06/02/18 23:11 37.1 117 24 191/95 (127) 95 Room Air 06/02/18 20:00 Room Air 06/02/18 19:38 36.6 114 22 173/96 (121) 93 Room Air 06/02/18 15:37 36.8 116 20 166/85 (112) 96 Room Air Physical Exam Notes: GENERAL: Lethargic, somewhat arousable, in no distress. Responds to some commands. Cachectic. HENT: Normocephalic, atraumatic. EYES: Normal conjunctiva. Sclera non-icteric. NECK: Supple. Full range of motion. no JVD RESPIRATORY: Diminished breath sounds. Normal work of breathing. CARDIAC: Regular rate, normal rhythm. Extremities warm and well perfused. Pulses equal. ABDOMEN: Soft, non-distended. No tenderness to palpation. Colostomy in tact, light brown stool no blood visible. EXTREMITIES: Calves are equal size bilaterally and non-tender. No edema. No discoloration. Atrophic limbs. 2+ edema in forearms and hands. NEURO: Facial muscle weakness, weakness of articulator muscles. EOMI. : hill catheter draining clear yellow urine SKIN: No rash or jaundice noted. +senile purpura Laboratory Results 06/03/18 04:58 Red Blood Count 3.26, Mean Corpuscular Volume 93.3, Mean Corpuscular Hemoglobin 29.8, Mean Corpuscular Hemoglobin Concent 31.9, Mean Platelet Volume 10.3, Neutrophils (%) (Auto) 90.7, Lymphocytes (%) (Auto) 3.5, Monocytes (%) (Auto) 4.9, Eosinophils (%) (Auto) 0.3, Basophils (%) (Auto) 0.0, Neutrophils # (Auto) 15.13, Lymphocytes # (Auto) 0.59, Monocytes # (Auto) 0.82, Eosinophils # (Auto) 0.05, Basophils # (Auto) 0.00 06/03/18 04:58 Test 06/03/18 04:58 White Blood Count 16.69 K/uL (4.8-10.8) Red Blood Count 3.26 M/uL (4.2-5.4) Hemoglobin 9.7 g/dL (12.0-16.0) Hematocrit 30.4 % (37-47) Mean Corpuscular Volume 93.3 fL (80-100) Mean Corpuscular Hemoglobin 29.8 pg (25-34) Mean Corpuscular Hemoglobin Concent 31.9 g/dl (32-36) Platelet Count 291 K/uL (130-400) Mean Platelet Volume 10.3 fL (7.4-10.4) Neutrophils (%) (Auto) 90.7 % Lymphocytes (%) (Auto) 3.5 % Monocytes (%) (Auto) 4.9 % Eosinophils (%) (Auto) 0.3 % Basophils (%) (Auto) 0.0 % Neutrophils # (Auto) 15.13 K/uL (1.4-6.5) Lymphocytes # (Auto) 0.59 K/uL (1.2-3.4) Monocytes # (Auto) 0.82 K/uL (0.11-0.59) Eosinophils # (Auto) 0.05 K/uL (0-0.5) Basophils # (Auto) 0.00 K/uL (0-0.2) RDW Standard Deviation 61.6 fL (36.4-46.3) RDW Coefficient of Variation 18.2 % (11.5-14.5) Immature Granulocyte % (Auto) 0.6 % Immature Granulocyte # (Auto) 0.10 K/uL (0.00-0.02) Echinocytes 1+ Anion Gap 11.0 mmol/L (3-11) Est Creatinine Clear Calc Drug Dose 58.9 ml/min Estimated GFR () 106.3 Estimated GFR (Non- 91.7 BUN/Creatinine Ratio 23.4 (10-20) Calcium Level 8.0 mg/dl (8.5-10.1) Troponin I 0.110 ng/ml (0-0.045) Assessment and Plan Mrs. Jasso is a 73F with metabolic encephalopathy and tachycardia found to have an elevated white count of 29 on admission, chest xray with cavitary pneumonia and possible urinary tract infection and healing ulcer with wound vac and chronic osteomyelitis. PMHx significant for multiple sclerosis x 20years, chronic migraines, functional paraplegia, urinary retention with chronic hill catheterization and also colostomy bag for incontinence complicated by sacral ulcer, osteomyelitis Metabolic encephalopathy in setting of sepsis due to right sided cavitary pneumonia -- HAP, vs healing sacral ulcer, susp for osteomyelitis, and abnormal UA vs ?MS flare - on review of records, pt is in end stage MS and has had similar facial droop and garbled speech in the past with MS flare, treated with 3 days of IV 1gm solumedrol the dose pack - trial of high dose steroids today 1gm IV Solumedrol. Risk vs benefit profile very difficult at this point, but family willing to try today. Reassess in AM. - continue IV Vanc and Zosyn, to cover for HAP, osteomyelitis and e. coli UTI. - ID/PULM input greatly appreciated - CT for PE negative for PE - PPD results aquired from [facility] -- negative for TB as of May 2018. - WBC decreased back to 16 from 18 yesterday. Lethargy stable. Rate stable in 120s. BP elevating slightly. Elevated d-dimer - elevated 3K - PULM input greatly appreciated - CT for PE and venous dopplers essentially negative. Abnormal urinalysis - + for e. coli and pseudomonas - zosyn as above, is sensitive Sinus tachycardia - infection/sepsis/dehydration - stable - QT/QTc 272/404, new PVCs present - likely 2/2 acute infection - optimize e-lytes - K>4, Mg >2. replete with 20meq this afternoon IV since not tolerating PO at the moment due to lethargy - hydration see JANN Hypokalemia - repleted, as above Sacral decubitus ulcer - possible source of infection with suspicion for osteomyelitis - on review of records has been MRSA + - on precautions - wound care consult -- adequate treatment of osteomyelitis a prerequisite for wound vac to be replaced. On vancomycin - adequate coverage. - On review of CT from her admission in [place] 08 May 2018 for loop colostomy creation, did make mention of a "chronic osteomyelitis" at coccyx stable from prior exam (March 2018). Migraine - continue topamax - low enough dose that can stop this cold turkey no issues since not tolerating PO - amitryptyline - may crush Paraplegia functional - hold lovenox given initial CrCl <20 - on heparin as below - home gabapentin -- consider holding given worsening lethargy PUD - Protonix BID made IV Frailty - nutrition consult - speech swallow consult DVT ppx: Heparin SQ q12h FEN/GI: - + NSS + 20meqK @ 100 ml/hr due to poor po intake today - Diet: regular, mech soft, +boost. Nutrition recs greatly appreciated Code status: DNR Resident Physician Supervision Note: I was present with Dr. Cruz during the history and exam. I discussed the case with the resident and agree with the findings and plan as documented in the note. Any exceptions or clarifications are listed here: Hemodynamically, except for the tachycardia, she remained stable. Her white cell count remains elevated but slightly improved today. She is awake and alert ; her speech is difficult to understand today; she complains of fatigue. From infectious standpoint, she is the same to slightly improved. Question if there is an element of a MS flare, and/or adrenal insufficiency -agree with trial of high-dose Solu-Medrol, as this seemed to improve her condition on prior similar hospitalizations. Documented By: Christofer Thompson Continued [facility] stay due to: multiple IV medications needed Resident Tracking Resident Involvement: Resident Care Provided Care Provided: Adult Hospital Medicine
[2018-06-03] MEDS ORDERED: HydrALAZINE HCL 20 MG/ML VIAL IV. PRN (15:00)
[2018-06-03] MEDS: AMITRIPTYLINE HCL 25 MG TAB PO SCH ×2 (20:06→20:49)
[2018-06-04] VITALS (9 sets, daily range): BP systolic 72–182; BP diastolic 30–117; PULSE 84–160; TEMP 36.5–36.7; O2SAT 95–98
[2018-06-04] MEDS: HYDROmorphone INJ 0.5 MG/0.5 ML SYR IV PRN ×3 (01:44→11:38)
[2018-06-04] MEDS: PIPERACILL/TAZOBAC IV 3.375 GM in DEXTROSE 5% 100ML 100 ML IV SCH ×3 (02:52→20:16)
[2018-06-04] MEDS: NSS + 20MEQ KCL 1000ML 1,000 ML IV SCH (05:25)
[2018-06-04 06:20] LABS: HEMATOCRIT 33.4 % (37-47); HEMOGLOBIN 10.8 g/dL (12.0-16.0); MEAN CELL VOLUME 91.8 fL (80-100); MEAN CORPUSCULAR HEMOGLOBIN 29.7 pg (25-34); MEAN CORPUSCULAR HGB CONC 32.3 g/dl (32-36); MEAN PLATELET VOLUME 10.1 fL (7.4-10.4); PLATELET COUNT 394 K/uL (130-400); RED CELL DISTRIBUTION WIDTH SD 60.7 fL (36.4-46.3); WHITE BLOOD COUNT 13.65 K/uL (4.8-10.8)
[2018-06-04 06:43] LABS: BASO % 0.1 %; BASO ABS # 0.01 K/uL (0-0.2); IG# 0.09 K/uL (0.00-0.02); LYMPH % 2.9 %; MONO % 0.4 %; MONO ABS # 0.06 K/uL (0.11-0.59); NEUT % 95.9 %; NEUT ABS # 13.09 K/uL (1.4-6.5)
[2018-06-04 06:47] LABS: CALCIUM 8.6 mg/dl (8.5-10.1); CREATININE 0.57 mg/dl (0.60-1.20); POTASSIUM 2.9 mmol/L (3.5-5.1)
--- NOTE | 2018-06-04 07:12 | Family Medicine Progress Note ---
Progress Note Date of Service Jun 04, 2018. Subjective Called to bedside by nursing for abnormal vital signs and acute agitation. Ms. Stone endorses pain, but difficult to pinpoint where. She is visibly sweating. per report did not sleep overnight. Not able to take PO given poor swallow. Had extensive discussion with Mrs. Jasso, her Don and her son, as well as family at bedside regarding goals of care. Seen by palliative today. ROS Limited due to mental status, but endorses pain generally. Medications Current Inpatient Medications Medications (Trade) Dose Ordered Sig/Melvin Route Start Time Stop Time Status Last Admin Dose Admin Ondansetron HCl (Zofran Inj) 4 mg Q6H PRN IV 05/30/18 17:15 06/29/18 17:14 06/04/18 11:38 4 MG Amitriptyline HCl (Elavil Tab) 75 mg HS PO 05/30/18 21:00 06/29/18 20:59 06/02/18 21:08 75 MG Sumatriptan Succinate (Imitrex Tab) 100 mg DAILY PRN PO 05/30/18 18:15 06/29/18 18:14 05/31/18 10:58 100 MG Topiramate (Topamax Tab) 25 mg BID PO 05/30/18 21:00 06/29/18 20:59 06/02/18 21:10 25 MG Ioversol (Optiray 320) 100 ml UD PRN IV 06/02/18 14:00 06/06/18 13:59 Lorazepam (Ativan Inj) 0.5 mg Q4H PRN IV 06/04/18 11:45 07/04/18 11:44 06/04/18 13:29 0.5 MG Hydromorphone HCl (Dilaudid Inj) 1 mg Q4H PRN IV 06/04/18 12:30 06/16/18 20:14 06/04/18 14:09 1 MG Objective Vital Signs Date Time Temp Pulse Resp B/P (MAP) Pulse Ox O2 Delivery O2 Flow Rate FiO2 06/04/18 16:30 Room Air 06/04/18 13:16 133 95 Room Air 06/04/18 13:07 36.5 139 28 98 06/04/18 11:41 36.5 139 28 178/90 (119) 98 Room Air 06/04/18 08:00 Room Air 06/04/18 07:57 84 32 156/84 (108) 96 Nasal Cannula 06/04/18 07:46 160 72/30 (44) 06/04/18 07:43 156 137/117 (124) 06/04/18 07:25 148 165/115 (132) 06/04/18 07:00 36.7 119 23 178/108 (131) 97 Room Air 06/04/18 03:25 36.6 118 21 182/94 (123) 97 Room Air 06/03/18 23:10 36.4 119 24 169/98 (121) 95 Room Air 06/03/18 20:00 Room Air 06/03/18 19:27 36.6 117 20 159/94 (115) 94 Physical Exam Notes: GENERAL: Agitated. Responds to some commands. Cachectic. Diaphoretic, flushed. HENT: Normocephalic, atraumatic. EYES: Normal conjunctiva. Sclera non-icteric. NECK: Supple. Full range of motion. no JVD RESPIRATORY: Diminished breath sounds. Increased work of breathing. CARDIAC: Regular rate, normal rhythm. Extremities warm and well perfused. Pulses equal. ABDOMEN: Soft, non-distended. No tenderness to palpation. Colostomy in tact, brown stool no blood visible. EXTREMITIES: Calves are equal size bilaterally and non-tender. No edema. No discoloration. Atrophic limbs. 2+ edema in forearms and hands. NEURO: Facial muscle weakness, weakness of articulator muscles. EOMI. : hill catheter draining clear yellow urine SKIN: No rash or jaundice noted. +senile purpura Laboratory Results 06/04/18 06:03 Red Blood Count 3.64, Mean Corpuscular Volume 91.8, Mean Corpuscular Hemoglobin 29.7, Mean Corpuscular Hemoglobin Concent 32.3, Mean Platelet Volume 10.1, Neutrophils (%) (Auto) 95.9, Lymphocytes (%) (Auto) 2.9, Monocytes (%) (Auto) 0.4, Eosinophils (%) (Auto) 0.0, Basophils (%) (Auto) 0.1, Neutrophils # (Auto) 13.09, Lymphocytes # (Auto) 0.40, Monocytes # (Auto) 0.06, Eosinophils # (Auto) 0.00, Basophils # (Auto) 0.01 06/04/18 06:03 Test 06/04/18 06:03 06/04/18 06:15 06/04/18 07:37 White Blood Count 13.65 K/uL (4.8-10.8) Red Blood Count 3.64 M/uL (4.2-5.4) Hemoglobin 10.8 g/dL (12.0-16.0) Hematocrit 33.4 % (37-47) Mean Corpuscular Volume 91.8 fL (80-100) Mean Corpuscular Hemoglobin 29.7 pg (25-34) Mean Corpuscular Hemoglobin Concent 32.3 g/dl (32-36) Platelet Count 394 K/uL (130-400) Mean Platelet Volume 10.1 fL (7.4-10.4) Neutrophils (%) (Auto) 95.9 % Lymphocytes (%) (Auto) 2.9 % Monocytes (%) (Auto) 0.4 % Eosinophils (%) (Auto) 0.0 % Basophils (%) (Auto) 0.1 % Neutrophils # (Auto) 13.09 K/uL (1.4-6.5) Lymphocytes # (Auto) 0.40 K/uL (1.2-3.4) Monocytes # (Auto) 0.06 K/uL (0.11-0.59) Eosinophils # (Auto) 0.00 K/uL (0-0.5) Basophils # (Auto) 0.01 K/uL (0-0.2) RDW Standard Deviation 60.7 fL (36.4-46.3) RDW Coefficient of Variation 18.0 % (11.5-14.5) Immature Granulocyte % (Auto) 0.7 % Immature Granulocyte # (Auto) 0.09 K/uL (0.00-0.02) Anion Gap 14.0 mmol/L (3-11) Est Creatinine Clear Calc Drug Dose 61.9 ml/min Estimated GFR () 108.1 Estimated GFR (Non- 93.3 BUN/Creatinine Ratio 23.6 (10-20) Calcium Level 8.6 mg/dl (8.5-10.1) Bedside Glucose 156 mg/dl (70-90) Venous Blood pH 7.43 (7.36-7.41) Venous Blood Partial Pressure CO2 28 mmHg (38.0-50.0) Venous Blood Partial Pressure O2 37 mmHg Venous Blood HCO3 18 mmol/L Venous Blood Oxygen Saturation 71.0 % Venous Blood Base Excess -5.0 mEq/L Assessment and Plan Mrs. Jasso is a 73F with metabolic encephalopathy and tachycardia found to have an elevated white count of 29 on admission, chest xray with cavitary pneumonia, urinary tract infection and sacral ulcer, chronic osteomyelitis. PMHx significant for end stage multiple sclerosis x 20years, chronic migraines, functional paraplegia, urinary retention with chronic hill catheterization and also colostomy bag for incontinence complicated by sacral ulcer, osteomyelitis Trial of high dose steroid (1gm) yesterday afternoon to treat presumed MS flare did not prove to be beneficial for mental status or neurologic weakness - adverse effects of increased agitation, diaphoresis and flushing. Discussed with Don that this medicine may be making her more comfortable and does not appear to be making a clinical difference and certainly no prognostic difference. Stevo agreed and verbalized understanding. Treated hypokalemia this AM with another round of 60 meq of potassium/water. Electrolytes diminished likely secondary to malnutrition as evidenced by cachexia, frailty and hypoalbuminemia. Patient unable to safely swallow when assessed by nursing. Medications changed to IV form. Patient does exhibit lucency during interview mostly, but at times will say things that are indecipherable, or she will repeat words that do not pertain to the conversation like "Lamar". When asked if she desires more escalated care, patient and family are clear that this is not desirable. Discussed that continuing antibiotics and fluids may not be curative, but would not hurt the patient either. However when asked if pt would like to continue antibiotics and fluids, pt at first equivocal, but then resolves that she wants to only be kept comfortable. and son at bedside and advocate for patient's wishes to be kept comfortable. Don and son agree that this is what she wants. Decision is made to make patient comfort measures only. Stevo states he does not wish for her to return to [facility]. Son voices that Stevo will not be able to take care of her at home either and would need round the clock help for such an endeavor to at home. Dilaudid increased slightly to 1 mg q4 PRN from 0.5mg. Ativan added prn. Code status: DNR Resident Physician Supervision Note: I interviewed and examined the patient. Discussed with Dr. Cruz and agree with findings and plan as documented in the note. Any exceptions or clarifications are listed here: None Documented By: Artis Montemayorur notes that she would like to just be comfortable. would like to go home but notes that she does not think this is possible. wonders how long she'll be declining before she passes. ntoes to me that she wants abx dc'd. later in discussions with palliative, apparently abx to be continued into tomorrow to see how she'll do vitals noted nad breathing unlabored fatigued appearing end stage MS w large (presumably aspiration) pneumonia w cavitary lesion and sepsis present on admission -working quickly to comfort care by pt request otherwise as above Continued [facility] stay due to: multiple IV medications needed Resident Tracking Resident Involvement: Resident Care Provided Care Provided: Adult Hospital Medicine
[2018-06-04] MEDS ORDERED: POTASSIUM CHLR 20 MEQ / WTR 20 MEQ IV SCH (07:15)
[2018-06-04] MEDS: TOPIRAMATE 25 MG TAB PO SCH ×2 (07:20→20:00)
[2018-06-04] MEDS: BOOST PLUS VANILLA OR BOOST GLUCOSE CONTROL STRAWBERRY PO SCH (07:20)
[2018-06-04] MEDS: HEPARIN SOD 5000 UNIT/0.5 ML CARP SQ SCH (07:22)
[2018-06-04] MEDS: PANTOprazole INJ 40 MG in SYRINGE 0 ML IV SCH (07:23)
[2018-06-04] MEDS ORDERED: POTASSIUM CHLR 10 MEQ / WTR 100 ML IV SCH (07:30)
[2018-06-04] MEDS: POTASSIUM CHLR 20 MEQ / WTR 20 MEQ IV SCH ×3 (07:39→11:39)
[2018-06-04] MEDS: VANCOMYCIN IV 750 MG in SODIUM CHLORIDE 0.9% 250ML 250 ML IV SCH (09:44)
--- NOTE | 2018-06-04 10:36 | Palliative Care Consultation ---
Consultation Date of Consultation: Jun 04, 2018. Requesting Physician: Dr. Cruz Attending Physician: Dr. Cruz Reason for Consultation: Goals of care History of Present Illness This 73 year old female patient with very long and complicated PMH including severe MS, and others listed below, presented to the hospital last week with c/ o confusion/metabolic encephalopathy. She resides at the [facility] and is paraplegic due to MS. Palliative care service is quite familiar with this patient, we are asked to see her again in consult for goals of care. Previously when I've met with the patient and her , Stevo, she does not want any aggressive/invasive measures. She opted against a feeding tube when she had odynophagia and weight loss. We completed a POLST form making her a DNR previously. This admission, patient has cavitary pneumonia, possible UTI, chronic osteomyelitis, healing sacral ulcer with wound vac, and possible MS flare. She was started on high dose solu-medrol yesterday- not tolerating well. Her heart rate is elevated on telemetry-- steroids discontinued. Patient is stating she wants to and go to [facility]. Making comments about being "done." I met with the patient, her Stevo, and at least 10 other family members in room 215. patient is awake and pleasant, mostly oriented and answering questions appropriately. Patient states, "I just want to be comfortable, that's the most important thing to me." I discussed transitioning to comfort measures only, patient agrees. I then spoke with , Stevo, outside of room separately and discussing in detail about comfort measures only. He wanted to continue abx for now but discontinue all other active treatment including telemetry. We will reevaluate in 24 hours if abx are helping, might discontinue. Ultimately, patient may go back to SNF with hospice/comfort care. Past Medical/Surgical History Medical History: (1) Abdominal pain (3) Abnormal EKG (4) Abnormal LFTs (liver function tests) (5) Acute hepatitis (6) Acute pharyngitis (7) Altered mental status (11) Benign hypertension (12) Cellulitis (13) Chest pain (14) Chronic headache (15) Chronic peptic ulcer (16) Closed head injury (17) Cystitis (18) Dehydration (20) Depression (21) Diarrhea (22) Elevated LFTs (27) Exacerbation of multiple sclerosis (28) Facial contusion (33) Fall at home (34) Femur fracture (36) Fracture of right hip (37) GASTRIC OUTLET OBSTRUCTION (38) Gastroesophageal reflux disease (40) Gram-positive bacteremia (41) Head injury (54) Hilar mass (55) Hip fracture, left (58) Hysterectomy (59) Intertrochanteric fracture of right hip (63) Intractable vomiting (65) Left leg weakness (66) Metabolic encephalopathy (67) Migraine (88) Multiple sclerosis (95) Pelvis fracture, right (96) Pericarditis (97) Pneumonia (100) Pressure ulcer of right buttock (114) Tachycardia (123) Weakness Surgical Problems: (1) H/O abdominal surgery (2) H/O: hysterectomy (3) History of back surgery (4) Hx of cholecystectomy (5) S/P partial gastrectomy Social History Smoking Status: Former Smoker History of Alcohol Use: No Drug Use: none Marital Status: Housing Status: prison Occupation Status: retired Review of Systems Constitutional: + weakness ENT: No trouble swallowing Respiratory: No cough, No shortness of breath Cardiac: No chest pain, No edema Abdomen: No pain, No nausea, No vomiting Female : No problem reported Psychiatric: No depression symptoms, No anxiety Allergies Coded Allergies: Morphine (Verified Adverse Reaction, Intermediate, " MAKES ME MEAN" - CONFUSION, 01/23/18) Medications Current Inpatient Medications Medications (Trade) Dose Ordered Sig/Melvin Route Start Time Stop Time Status Last Admin Dose Admin Heparin Sodium (Porcine) (Heparin Sq 5000 Unit/0.5ml) 5,000 unit Q12 SQ 05/30/18 21:00 06/29/18 20:59 06/04/18 07:22 5,000 UNIT Acetaminophen (Tylenol Tab) 650 mg Q4H PRN PO 05/30/18 17:15 06/29/18 17:14 Ondansetron HCl (Zofran Inj) 4 mg Q6H PRN IV 05/30/18 17:15 06/29/18 17:14 Polyethylene (Miralax Powder Packet) 17 gm DAILY PRN PO 05/30/18 17:15 06/29/18 17:14 Vancomycin HCl (Consult) 1 ea UD PRN N/A 05/30/18 18:15 06/29/18 18:14 Piperacillin Sod/ Tazobactam Sod 3.375 gm/Dextrose 115 ml @ 28.75 mls/ hr Q8H IV 05/30/18 19:00 06/06/18 18:59 06/04/18 02:52 28.75 MLS/HR Miscellaneous Information (Consult) 1 ea UD PRN N/A 05/30/18 18:15 06/29/18 18:14 Acetaminophen (Tylenol Supp) 650 mg Q6H PRN TN 05/30/18 18:15 06/29/18 18:14 Amitriptyline HCl (Elavil Tab) 75 mg HS PO 05/30/18 21:00 06/29/18 20:59 06/02/18 21:08 75 MG Ondansetron HCl (Zofran Tab) 4 mg Q8H PRN PO 05/30/18 18:15 06/29/18 18:14 06/01/18 08:20 4 MG Pantoprazole Sodium (Protonix Tab) 40 mg BID PO 05/30/18 21:00 06/29/18 20:59 Future hold 06/01/18 22:21 40 MG Sumatriptan Succinate (Imitrex Tab) 100 mg DAILY PRN PO 05/30/18 18:15 06/29/18 18:14 05/31/18 10:58 100 MG Topiramate (Topamax Tab) 25 mg BID PO 05/30/18 21:00 06/29/18 20:59 06/02/18 21:10 25 MG Gabapentin (Neurontin Cap) 300 mg TID PO 05/30/18 21:00 06/29/18 20:59 Future Hold 06/01/18 22:21 300 MG Heparin Sodium (Porcine) (Heparin 100 Unit/ml 5ml Flush) 5 ml PRN PRN IV 05/31/18 01:30 06/30/18 01:29 Morphine Sulfate (MoRPHine SULFATE INJ) 2 mg Q4HWA PRN IV 05/31/18 11:15 06/14/18 11:14 Future Hold Enteral Nutritional Formula (Boost Plus Vanilla) 1 can BIDM PO 05/31/18 16:45 06/30/18 16:44 06/02/18 16:31 1 CAN Oxycodone HCl (Roxicodone Immediate Rel Tab) 10 mg Q4HWA PRN PO 05/31/18 17:30 06/14/18 17:29 06/01/18 17:26 10 MG Vancomycin HCl 750 mg/Sodium Chloride 265 ml @ 125 mls/hr Q24H IV 06/01/18 10:00 06/06/18 09:59 06/04/18 09:44 125 MLS/HR Potassium Chloride/Sodium Chloride 1,000 ml @ 100 mls/hr Q10H IV 06/02/18 11:00 07/02/18 07:59 Future Hold 06/04/18 05:25 100 MLS/HR Ioversol (Optiray 320) 100 ml UD PRN IV 06/02/18 14:00 06/06/18 13:59 Hydromorphone HCl (Dilaudid Inj) 0.5 mg Q4H PRN IV 06/02/18 20:15 06/16/18 20:14 06/04/18 07:41 0.5 MG Hydralazine HCl (HydrALAZINE INJ) 10 mg Q2H PRN IV. 06/03/18 15:00 07/03/18 14:59 06/04/18 07:17 10 MG Potassium Chloride 0 ml @ 50 mls/hr Q2H IV 06/04/18 07:30 06/04/18 11:31 06/04/18 09:44 50 MLS/HR Physical Exam Date Time Temp Pulse Resp B/P (MAP) Pulse Ox O2 Delivery O2 Flow Rate FiO2 06/04/18 08:00 Room Air 06/04/18 07:57 84 32 156/84 (108) 96 Nasal Cannula 06/04/18 07:46 160 72/30 (44) 06/04/18 07:43 156 137/117 (124) 06/04/18 07:25 148 165/115 (132) 06/04/18 07:00 36.7 119 23 178/108 (131) 97 Room Air 06/04/18 03:25 36.6 118 21 182/94 (123) 97 Room Air 06/03/18 23:10 36.4 119 24 169/98 (121) 95 Room Air 06/03/18 20:00 Room Air 06/03/18 19:27 36.6 117 20 159/94 (115) 94 06/03/18 17:08 118 171/93 (119) 06/03/18 16:59 120 176/101 (126) 06/03/18 16:40 120 174/86 (115) 06/03/18 16:10 113 173/93 (119) 06/03/18 15:35 125 168/85 (112) 06/03/18 15:01 36.5 120 167/94 (118) 95 Room Air 06/03/18 11:31 36.5 128 16 161/96 (117) 93 General Appearance: no apparent distress, + cachetic, + thin ENT: hearing grossly normal Neck: supple, no JVD Respiratory: no respiratory distress, no accessory muscle use, + decreased breath sounds Cardiovascular: + tachycardia, + irregularly irregular, + normal peripheral pulses Abdomen: normal bowel sounds, non tender, soft Neurologic/Psychiatric: alert, normal mood/affect, oriented x 3 (some forgetfulness) Skin: normal color Laboratory Results Last 24 Hours Test 06/03/18 16:32 06/04/18 00:28 06/04/18 06:03 06/04/18 06:15 Bedside Glucose 138 mg/dl 144 mg/dl 156 mg/dl White Blood Count 13.65 K/uL Red Blood Count 3.64 M/uL Hemoglobin 10.8 g/dL Hematocrit 33.4 % Mean Corpuscular Volume 91.8 fL Mean Corpuscular Hemoglobin 29.7 pg Mean Corpuscular Hemoglobin Concent 32.3 g/dl Platelet Count 394 K/uL Mean Platelet Volume 10.1 fL Neutrophils (%) (Auto) 95.9 % Lymphocytes (%) (Auto) 2.9 % Monocytes (%) (Auto) 0.4 % Eosinophils (%) (Auto) 0.0 % Basophils (%) (Auto) 0.1 % Neutrophils # (Auto) 13.09 K/uL Lymphocytes # (Auto) 0.40 K/uL Monocytes # (Auto) 0.06 K/uL Eosinophils # (Auto) 0.00 K/uL Basophils # (Auto) 0.01 K/uL RDW Standard Deviation 60.7 fL RDW Coefficient of Variation 18.0 % Immature Granulocyte % (Auto) 0.7 % Immature Granulocyte # (Auto) 0.09 K/uL Sodium Level 145 mmol/L Potassium Level 2.9 mmol/L Chloride Level 113 mmol/L Carbon Dioxide Level 18 mmol/L Anion Gap 14.0 mmol/L Blood Urea Nitrogen 14 mg/dl Creatinine 0.57 mg/dl Est Creatinine Clear Calc Drug Dose 61.9 ml/min Estimated GFR () 108.1 Estimated GFR (Non- 93.3 BUN/Creatinine Ratio 23.6 Random Glucose 166 mg/dl Calcium Level 8.6 mg/dl Test 06/04/18 07:37 Venous Blood pH 7.43 Venous Blood Partial Pressure CO2 28 mmHg Venous Blood Partial Pressure O2 37 mmHg Venous Blood HCO3 18 mmol/L Venous Blood Oxygen Saturation 71.0 % Venous Blood Base Excess -5.0 mEq/L Assessment & Plan Palliative Performance Scale: 20 % Problem list: Altered mental status Severe MS Cavitary pneumonia Goals of care Possible UTI Chronic osteomyelitis Healing sacral wound Palliative care recs: -Patient is DNR. -Transfer to [facility] -Discontinue all active treatment other than abx as I discussed with patient and , Don. Will reevaluate tomorrow, if patient not improving, may just discontinue abx as well. -Patient comes from [facility], she could go back there on comfort/hospice depending on clinical course. -NO escalation in care, moving towards comfort measures only. Thank you kindly for this consult. I will follow as needed. Total time spent 75 minutes with >50% of time spent at bedside with patient and family discussing medical condition and goals of care. Also collaborated with MD and case management.
[2018-06-04] MEDS: LORAZEPAM 2 MG/ML 1 ML VIAL IV PRN (13:29)
[2018-06-04] MEDS: HYDROmorphone INJ 2 MG/ML SYR/VIAL IV PRN (14:09)
[2018-06-04] MEDS ORDERED: PIPERACILL/TAZOBAC CONSULT ACTIVE PRN (19:30)
[2018-06-04] MEDS ORDERED: VANCOMYCIN CONSULT ACTIVE PRN (19:30)
[2018-06-04] MEDS: AMITRIPTYLINE HCL 25 MG TAB PO SCH (20:16)
[2018-06-05] VITALS: O2SAT 95
[2018-06-05] MEDS: HYDROmorphone INJ 2 MG/ML SYR/VIAL IV PRN ×3 (00:06→15:34)
[2018-06-05] MEDS: PIPERACILL/TAZOBAC IV 3.375 GM in DEXTROSE 5% 100ML 100 ML IV SCH (05:01)
[2018-06-05] MEDS: TOPIRAMATE 25 MG TAB PO SCH (07:29)
[2018-06-05 08:00] VITALS: O2SAT 95
--- NOTE | 2018-06-05 09:08 | Palliative Care Progress Note ---
Palliative Care Progress Note Date of Service Jun 05, 2018. Subjective Pt evaluation today including: conversation w/ patient, conversation w/ family , physical exam Pain: states she has pain 'all over' PO Intake: sips I met with the patient and her , Don, and son, and daughter in law were at the bedside. They said that she seems comfortable when she is sleeping, but when shes awake, she grimaces and has started to have some audible secretions. We revisited the antibiotics that she was on, along with the lab work for them and the family has decided to stop the antibiotics and additional blood work. Upon assessing the patient, she was resting upon entering the room, but did wake up and say "I hurt all over", "make this stop". She did grimace with movement. The patient has Dilaudid 1 mg Q4 PRN ordered for which she has received twice over the past 24 hours. Due to her Morphine allergy, I will order Oxycodone oral solution 5mg/mL SL Q2 PRN for comfort. The patient was tachycardic in the 130's, which appears unchanged from her trends. I did discuss discharge planning and the family was clear they want her to remain here. I did set the expectation about readdressing her clinical status over the next 24 hours to see if she declines rapidly vs steadily, indicating evaluation of GIP vs transfer back to the [facility] with Hospice. We will continue to follow this patient and assess her comfort needs. Review of Systems Pt opes her eyes and states she has pain, but no other reliable ROS was able to be completed. Objective Vital Signs Date Time Temp Pulse Resp B/P (MAP) Pulse Ox O2 Delivery O2 Flow Rate FiO2 06/05/18 00:00 95 Nasal Cannula 2.0 06/04/18 16:30 Nasal Cannula 2.0 06/04/18 13:16 133 95 Room Air 06/04/18 13:07 36.5 139 28 98 06/04/18 11:41 36.5 139 28 178/90 (119) 98 Room Air Physical Exam General Appearance: + mild distress (when awake/grimacing) Respiratory/Chest: + decreased breath sounds, + pertinent finding (some secretions noted audibly) Cardiovascular: + tachycardia Abdomen: normal bowel sounds, non tender, soft Neurologic/Psychiatric: + pertinent finding (opens eyes, but not reliable for historian or orientation questions) Skin: warm/dry Assessment and Plan Palliative Care Encounter Advanced MS healing sacral wound osteomyelitis Palliative Care Recommendations: -Patient to remain DNR/DNI and transition fully to comfort measures -All non comfort medications have been discontinued, along with laboratory work. -The patient has Dilaudid 1 mg Q4 PRN ordered for which she has received twice over the past 24 hours. -Due to her Morphine allergy, I will order Oxycodone oral solution 5mg/mL SL Q2 PRN for comfort. -Patient now having auditory secretins at times - Will order a Scopolamine patch TD Q3 days -We did discuss discharge planning based on her clinical course over the next 24 hours (GIP vs return to [facility] with Hospice) Palliative Performance Scale: 10 % Continued [facility] stay due to: other (transitioning to comfort measures) Discharge planning: uncertain (will determine based on clinical course over the next 24 hours) Counseling and Coordination Total time spent 45 minutes with > 50% of that time spent assessing the patient , discussing and counseling patients family needs regarding disease process and decline, and adjusting pain medications and involving the other IDT members
[2018-06-05] MEDS ORDERED: VANCOMYCIN TROUGH ONE (09:30)
[2018-06-05] MEDS ORDERED: OXYCODONE HCL SOLN 5 MG/5 ML UDC PO PRN (09:45)
[2018-06-05] MEDS ORDERED: VANCOMYCIN IV 750 MG in SODIUM CHLORIDE 0.9% 250ML 250 ML IV SCH (10:00)
[2018-06-05] MEDS: SCOPOLAMINE 1.5 MG TDSY TD SCH (10:25)
--- NOTE | 2018-06-05 10:48 | Family Medicine Progress Note ---
Progress Note Date of Service Jun 05, 2018. Subjective JUAN JOSE overnight Don and son at bedside Say she appears comfortable Seen by palliative this AM ROS limited d/t pt mental status Medications Current Inpatient Medications Medications (Trade) Dose Ordered Sig/Melvin Route Start Time Stop Time Status Last Admin Dose Admin Ondansetron HCl (Zofran Inj) 4 mg Q6H PRN IV 05/30/18 17:15 06/29/18 17:14 06/04/18 11:38 4 MG Ioversol (Optiray 320) 100 ml UD PRN IV 06/02/18 14:00 06/06/18 13:59 Lorazepam (Ativan Inj) 0.5 mg Q4H PRN IV 06/04/18 11:45 07/04/18 11:44 06/04/18 13:29 0.5 MG Hydromorphone HCl (Dilaudid Inj) 1 mg Q4H PRN IV 06/04/18 12:30 06/16/18 20:14 06/05/18 09:36 1 MG Scopolamine (Transderm-Scop Patch) 1.5 mg Q72H TD 06/05/18 10:15 07/05/18 10:14 06/05/18 10:25 1.5 MG Miscellaneous Information (Check Scopolamine Patch Placement) 1 ea QS N/A 06/05/18 16:00 07/05/18 15:59 Miscellaneous (Remove Transderm-Scop Patch) 1 ea Q72H N/A 06/08/18 10:15 07/08/18 10:14 Oxycodone HCl (Roxicodone Soln) 5 mg Q2R PRN PO 06/05/18 09:45 06/19/18 09:44 Heparin Sodium (Porcine) (Heparin 100 Unit/ml 5ml Flush) 5 ml PRN PRN IV 06/05/18 11:00 07/05/18 10:59 Objective Vital Signs Date Time Temp Pulse Resp B/P (MAP) Pulse Ox O2 Delivery O2 Flow Rate FiO2 06/05/18 08:00 Nasal Cannula 2.0 06/05/18 00:00 95 Nasal Cannula 2.0 06/04/18 16:30 Nasal Cannula 2.0 06/04/18 13:16 133 95 Room Air 06/04/18 13:07 36.5 139 28 98 06/04/18 11:41 36.5 139 28 178/90 (119) 98 Room Air Physical Exam Notes: GENERAL: Somnolent, in no distress. adiaphoretic HENT: Normocephalic, atraumatic. No grimace present. Opens eyes and closes them. RESPIRATORY: Normal work of breathing. Nasal cannula in place. NEURO: paraplegia SKIN: No rash or jaundice noted. Assessment and Plan Mrs. Jasso is a 73F with metabolic encephalopathy and tachycardia found to have an elevated white count of 29 on admission, chest xray with cavitary pneumonia, urinary tract infection and sacral ulcer, chronic osteomyelitis. PMHx significant for end stage multiple sclerosis x 20years, chronic migraines, functional paraplegia, urinary retention with chronic hill catheterization and also colostomy bag for incontinence complicated by sacral ulcer, osteomyelitis Decision made with pt and family to make comfort measures yesterday. Pt seen by palliative note. Added scopolamine patch. Will avoid morphine since this makes her angry and confused. Pt appears comfortable. Unsure if need for inpatient hospice or consider hospice at [facility]. Code: DNR Dispo: 4E. Comfort. Resident Physician Supervision Note: I interviewed and examined the patient. Discussed with Dr. Cruz and agree with findings and plan as documented in the note. Any exceptions or clarifications are listed here: None Documented By: Artis Schilling appearing more comfortable. much more sleepy. family notes that they would much prefer to keep her here at this point, and with decline appearing more rapid, currently this appears reasonable vitals noted nad breathing unlabored fatigued appearing but appears comfortable end stage MS w large (presumably aspiration) pneumonia w cavitary lesion and sepsis present on admission -now comfort care. actually appears to be moving to more rapid decline otherwise as above Continued [facility] stay due to: multiple IV medications needed Resident Tracking Resident Involvement: Resident Care Provided Care Provided: Adult Hospital Medicine
[2018-06-05] MEDS: CHECK SCOPOLAMINE PATCH PLACEMENT SCH (15:36)
[2018-06-05] MEDS ORDERED: CHECK SCOPOLAMINE PATCH PLACEMENT SCH (16:00)
[2018-06-06] MEDS: CHECK SCOPOLAMINE PATCH PLACEMENT SCH ×3 (00:10→15:53)
[2018-06-06] MEDS: HYDROmorphone INJ 2 MG/ML SYR/VIAL IV PRN ×4 (04:12→19:17)
[2018-06-06] MEDS: LORAZEPAM 2 MG/ML 1 ML VIAL IV PRN (11:05)
--- NOTE | 2018-06-06 12:37 | Palliative Care Progress Note ---
Palliative Care Progress Note Date of Service Jun 06, 2018. Subjective Pt evaluation today including: conversation w/ patient ( Stevo, daughter Macy, patient's take up supervisor), conversation w/ family, physical exam, chart review, conversation w/ clinical application consultant (Dr. Cruz, Dr. Schilling) Pain: "no" PO Intake: minimal Voiding: hill catheter in place Patient is awake and pleasant this morning. Not really verbally responsive but able to answer questions with head nods. Was smiling and shook head "no" to pain or SOB. Received 3 doses IV Dilaudid 1mg in last 24 hours. Spoke with patient's , Don, daughter and take up supervisor. Review of Systems unable to obtain full ROS due to patient condition Objective Vital Signs Date Time Temp Pulse Resp B/P (MAP) Pulse Ox O2 Delivery O2 Flow Rate FiO2 06/06/18 08:30 Room Air 06/06/18 00:00 Room Air 06/05/18 16:00 Nasal Cannula 2.0 Physical Exam General Appearance: no apparent distress, + cachetic, + thin ENT: hearing grossly normal Neck: supple, no JVD Respiratory/Chest: no respiratory distress, no accessory muscle use, + decreased breath sounds Cardiovascular: regular rate, rhythm, no edema Abdomen: normal bowel sounds, soft Neurologic/Psychiatric: alert, + pertinent finding (not verbally responding) Assessment and Plan Problem list: Altered mental status Severe MS Cavitary pneumonia Goals of care Possible UTI Chronic osteomyelitis Healing sacral wound Palliative care recs -Comfort measures only. -No further abx or IVF. -Receiving Dilaudid IV for pain. Received total of 3mg IV in last 24 hours. Consider switching to Roxanol 5-10mg PO/SL Q3h PRN pain or SOB if any chance of patient being discharged back to the [facility]. -Spoke with patient's , Stevo, at bedside. HE stated, "That's not happening ," when we talked about the possibility of going back to the [facility]. He stated patient had a roommate which was very disruptive. I did ask the rn case manager hospice to find out if has any private beds available IF hospitalists do decide to transfer her back. -At this current time, I do not see qualifying factors for [facility] hospice, but this could certainly change in the near future. -I will continue to follow and provide support as needed. Thank you again for including us in the care of this nice patient and family. Total time spent 35 minutes with >50% of time spent at bedside with patient and family counseling and discussing plan of care. Palliative Performance Scale: 10 % Continued [facility] stay due to: multiple IV medications needed Discharge planning: uncertain (will determine based on clinical course over the next 24 hours)
--- NOTE | 2018-06-06 17:38 | Family Medicine Progress Note ---
Progress Note Date of Service Jun 06, 2018. Subjective JUAN JOSE overnight Don and daughter at bedside Say she appears comfortable. Seen by palliative this AM, discussed option of hospice at [facility] ROS limited d/t pt mental status Medications Current Inpatient Medications Medications (Trade) Dose Ordered Sig/Melvin Route Start Time Stop Time Status Last Admin Dose Admin Ondansetron HCl (Zofran Inj) 4 mg Q6H PRN IV 05/30/18 17:15 06/29/18 17:14 06/04/18 11:38 4 MG Lorazepam (Ativan Inj) 0.5 mg Q4H PRN IV 06/04/18 11:45 07/04/18 11:44 06/06/18 11:05 0.5 MG Hydromorphone HCl (Dilaudid Inj) 1 mg Q4H PRN IV 06/04/18 12:30 06/16/18 20:14 06/06/18 14:37 1 MG Scopolamine (Transderm-Scop Patch) 1.5 mg Q72H TD 06/05/18 10:15 07/05/18 10:14 06/05/18 10:25 1.5 MG Miscellaneous Information (Check Scopolamine Patch Placement) 1 ea QS N/A 06/05/18 16:00 07/05/18 15:59 06/06/18 15:53 1 EA Miscellaneous (Remove Transderm-Scop Patch) 1 ea Q72H N/A 06/08/18 10:15 07/08/18 10:14 Oxycodone HCl (Roxicodone Soln) 5 mg Q2R PRN PO 06/05/18 09:45 06/19/18 09:44 Heparin Sodium (Porcine) (Heparin 100 Unit/ml 5ml Flush) 5 ml PRN PRN IV 06/05/18 11:00 07/05/18 10:59 06/06/18 14:39 5 ML Lorazepam 0.5 mg/ Syringe 1 ml @ 1 mls/min Q4H PRN IV 06/06/18 12:15 07/06/18 12:14 Objective Vital Signs Date Time Temp Pulse Resp B/P (MAP) Pulse Ox O2 Delivery O2 Flow Rate FiO2 06/06/18 08:30 Room Air 06/06/18 00:00 Room Air Physical Exam Notes: GENERAL: Somnolent, in no distress. adiaphoretic HENT: Normocephalic, atraumatic. No grimace present. Opens eyes and closes them. RESPIRATORY: Normal work of breathing. On room air NEURO: paraplegia SKIN: No rash or jaundice noted. Assessment and Plan Mrs. Jasso is a 73F with metabolic encephalopathy and tachycardia found to have an elevated white count of 29 on admission, chest xray with cavitary pneumonia, urinary tract infection and sacral ulcer, chronic osteomyelitis. PMHx significant for end stage multiple sclerosis x 20years, chronic migraines, functional paraplegia, urinary retention with chronic hill catheterization and also colostomy bag for incontinence complicated by sacral ulcer, osteomyelitis Due to poor prognosis decision made with pt and family to make comfort measures 06/04. See palliative note. Added scopolamine patch. Will avoid morphine since this makes her angry and confused. Pt appears comfortable. Unsure if need for inpatient hospice or consider hospice at [facility]. Code: DNR Dispo: 4E. Comfort. Resident Physician Supervision Note: I interviewed and examined the patient. Discussed with Dr. Cruz and agree with findings and plan as documented in the note. Any exceptions or clarifications are listed here: None Documented By: Artis Schilling appearing more comfortable. family notes was a little agitated earlier vitals noted nad breathing unlabored fatigued end stage MS w large (presumably aspiration) pneumonia w cavitary lesion and sepsis present on admission -now comfort care. actually appears to be moving to more rapid decline. added ativan prn otherwise as above Continued [facility] stay due to: multiple IV medications needed Resident Tracking Resident Involvement: Resident Care Provided Care Provided: Adult Hospital Medicine
[2018-06-07] MEDS: CHECK SCOPOLAMINE PATCH PLACEMENT SCH ×3 (00:28→15:47)
[2018-06-07] MEDS: LORAZEPAM INJ 0.5 MG in SYRINGE 0.75 ML IV PRN ×2 (04:17→11:39)
[2018-06-07] MEDS: HYDROmorphone INJ 2 MG/ML SYR/VIAL IV PRN ×2 (07:48→15:47)
--- NOTE | 2018-06-07 10:10 | Palliative Care Progress Note ---
Palliative Care Progress Note Date of Service Jun 07, 2018. Subjective Pt evaluation today including: conversation w/ patient, conversation w/ family , physical exam, chart review, conversation w/ workday consultant (Dr. Cruz) Pain: no s/s PO Intake: none today Patient is sleeping comfortably during my visit. Did not wake her. Stevo and another family member at bedside. They deny questions/concerns. State that patient seems very comfortable today. Review of Systems unable to obtain ROS due to patient condition Objective Vital Signs Date Time Temp Pulse Resp B/P (MAP) Pulse Ox O2 Delivery O2 Flow Rate FiO2 06/07/18 07:45 Room Air 06/07/18 00:00 Room Air 06/06/18 16:00 Nasal Cannula 2.0 Physical Exam General Appearance: no apparent distress, + cachetic, + thin ENT: + pertinent finding (oral mucosa moist) Neck: no JVD Respiratory/Chest: no respiratory distress, no accessory muscle use Cardiovascular: no edema, + tachycardia, + irregularly irregular Abdomen: normal bowel sounds, soft Neurologic/Psychiatric: + pertinent finding (sleeping while I was in room. lethargic) Skin: normal color Assessment and Plan Problem list: Altered mental status Severe MS Cavitary pneumonia Goals of care Palliative care recs -Comfort measures only. -Receiving Dilaudid IV for pain. Consider switching to Roxanol 5-10mg PO/SL Q3h PRN pain or SOB if any chance of patient being discharged back to the [facility]. -Spoke with patient's , Stevo, at bedside. He stated, "That's not happening ," when we talked about the possibility of going back to the [facility]. He stated patient had a roommate which was very disruptive. I did ask the case management manager to find out if has any private beds available IF hospitalists do decide to transfer her back. -At this current time, I do not see qualifying factors for [facility] hospice, but this could certainly change in the near future. -I will continue to follow and provide support as needed. Total time spent 25 minutes with >50% of time spent at bedside with patient and family counseling and discussing plan of care. Palliative Performance Scale: 10 % Continued [facility] stay due to: multiple IV medications needed Discharge planning: uncertain (will determine based on clinical course over the next 24 hours)
--- NOTE | 2018-06-07 10:45 | Family Medicine Progress Note ---
Progress Note Date of Service Jun 07, 2018. Subjective Resting comfortably in bed JUAN JOSE overnight Per Don () she's "waiting" for someone before dying. Opens eyes ROS limited due to pt mental status Medications Current Inpatient Medications Medications (Trade) Dose Ordered Sig/Melvin Route Start Time Stop Time Status Last Admin Dose Admin Ondansetron HCl (Zofran Inj) 4 mg Q6H PRN IV 05/30/18 17:15 06/29/18 17:14 06/04/18 11:38 4 MG Lorazepam (Ativan Inj) 0.5 mg Q4H PRN IV 06/04/18 11:45 07/04/18 11:44 06/06/18 11:05 0.5 MG Hydromorphone HCl (Dilaudid Inj) 1 mg Q4H PRN IV 06/04/18 12:30 06/16/18 20:14 06/07/18 07:48 1 MG Scopolamine (Transderm-Scop Patch) 1.5 mg Q72H TD 06/05/18 10:15 07/05/18 10:14 06/05/18 10:25 1.5 MG Miscellaneous Information (Check Scopolamine Patch Placement) 1 ea QS N/A 06/05/18 16:00 07/05/18 15:59 06/07/18 07:48 1 EA Miscellaneous (Remove Transderm-Scop Patch) 1 ea Q72H N/A 06/08/18 10:15 07/08/18 10:14 Oxycodone HCl (Roxicodone Soln) 5 mg Q2R PRN PO 06/05/18 09:45 06/19/18 09:44 Heparin Sodium (Porcine) (Heparin 100 Unit/ml 5ml Flush) 5 ml PRN PRN IV 06/05/18 11:00 07/05/18 10:59 06/07/18 07:48 5 ML Lorazepam 0.5 mg/ Syringe 1 ml @ 1 mls/min Q4H PRN IV 06/06/18 12:15 07/06/18 12:14 06/07/18 04:17 1 MLS/MIN Objective Vital Signs Date Time Temp Pulse Resp B/P (MAP) Pulse Ox O2 Delivery O2 Flow Rate FiO2 06/07/18 07:45 Room Air 06/07/18 00:00 Room Air 06/06/18 16:00 Nasal Cannula 2.0 Physical Exam Notes: GENERAL: Somnolent, in no distress. adiaphoretic HENT: Normocephalic, atraumatic. No grimace present. Opens eyes and closes them. RESPIRATORY: Normal work of breathing. On room air NEURO: paraplegia SKIN: No rash or jaundice noted. Assessment and Plan Mrs. Jasso is a 73F with metabolic encephalopathy and tachycardia found to have an elevated white count of 29 on admission, chest xray with cavitary pneumonia, urinary tract infection and sacral ulcer, chronic osteomyelitis. PMHx significant for end stage multiple sclerosis x 20years, chronic migraines, functional paraplegia, urinary retention with chronic hill catheterization and also colostomy bag for incontinence complicated by sacral ulcer, osteomyelitis Due to poor prognosis decision made with pt and family to make comfort measures 06/04. See palliative note. Will avoid morphine since this makes her angry and confused. Pt appears comfortable. Unsure if need for inpatient hospice or consider hospice at [facility]. Following Code: DNR Dispo: 4E. Comfort. Resident Physician Supervision Note: I interviewed and examined the patient. Discussed with Dr. Cruz and agree with findings and plan as documented in the note. Any exceptions or clarifications are listed here: None Documented By: Artis Schilling comfortable today - no HPI or ROS - loosely opens eyes but does not converse or follow. family notes she's been mostly sleeping and when appearing awake has been nonverbal since about yesterday. offered empathy and support vitals noted nad breathing unlabored fatigued end stage MS w large (presumably aspiration) pneumonia w cavitary lesion and sepsis present on admission -now comfort care. actually appears in rapid decline. continue current care. agree w dr hernandez that she appears to be likely to pass imminently otherwise as above Continued [facility] stay due to: multiple IV medications needed Resident Tracking Resident Involvement: Resident Care Provided Care Provided: Adult Hospital Medicine
[2018-06-08] MEDS: CHECK SCOPOLAMINE PATCH PLACEMENT SCH ×4 (00:07→23:27)
[2018-06-08] MEDS: LORAZEPAM INJ 0.5 MG in SYRINGE 0.75 ML IV PRN (00:10)
[2018-06-08] MEDS: HYDROmorphone INJ 2 MG/ML SYR/VIAL IV PRN ×3 (04:44→15:42)
[2018-06-08] MEDS: SCOPOLAMINE 1.5 MG TDSY TD SCH (09:54)
[2018-06-08] MEDS: LORAZEPAM 2 MG/ML 1 ML VIAL IV PRN (11:42)
--- NOTE | 2018-06-08 14:38 | Palliative Care Progress Note ---
Palliative Care Progress Note Date of Service Jun 08, 2018. Subjective Pt evaluation today including: conversation w/ family, physical exam Pain: None by exam PO Intake: None Voiding: incontinence Met with at bedside, discussed end-of-life issues at length. Patient may be awaiting the arrival of her sister this afternoon. Review of Systems Unable to obtain, patient unresponsive to voice and touch on exam Objective Vital Signs Date Time Temp Pulse Resp B/P (MAP) Pulse Ox O2 Delivery O2 Flow Rate FiO2 06/07/18 20:00 Room Air 06/07/18 16:00 Room Air Physical Exam General Appearance: no apparent distress Neck: + pertinent finding (Mild hyperextension) Respiratory/Chest: + pertinent finding (No respiratory distress, shallow respirations) Cardiovascular: + tachycardia, + irregularly irregular Abdomen: non tender (No grimace with palpation) Extremities: + pedal edema, + pertinent finding (Positive mottling bilateral knees and right elbow) Neurologic/Psychiatric: + pertinent finding (Unresponsive to voice and touch on exam) Skin: warm/dry, + mottled (Knees and right elbow) Assessment and Plan (1) Palliative care encounter Assessment & Plan: Patient nearing end-of-life, discussed end-of-life issues at length with at bedside. plans to tell the patient it is okay for her to let go after her sister completes her visit (2) Multiple sclerosis Status: Chronic Assessment & Plan: Patient has been bedbound for an extended period of time- now on comfort care (3) Pneumonia Status: Acute Assessment & Plan: Patient with a cavitary pneumonia, was not improving on IV antibiotics-patient now on comfort care, antibiotics stopped (4) Altered mental status Assessment & Plan: Patient continued to decline-patient is now minimally responsive to unresponsive to voice and touch. Palliative Performance Scale: 10 % Continued [facility] stay due to: multiple IV medications needed Discharge planning: uncertain (will determine based on clinical course over the next 24 hours) Counseling and Coordination Total time spent 35 minutes with greater than 50% of the time spent at bedside with discussing end-of-life issues, providing emotional support, and answering all questions.
--- NOTE | 2018-06-08 16:51 | Family Medicine Progress Note ---
Progress Note Date of Service Jun 08, 2018. Subjective Resting comfortably in bed JUAN JOSE overnight ROS limited due to pt mental status Medications Current Inpatient Medications Medications (Trade) Dose Ordered Sig/Melvin Route Start Time Stop Time Status Last Admin Dose Admin Ondansetron HCl (Zofran Inj) 4 mg Q6H PRN IV 05/30/18 17:15 06/29/18 17:14 06/04/18 11:38 4 MG Lorazepam (Ativan Inj) 0.5 mg Q4H PRN IV 06/04/18 11:45 07/04/18 11:44 06/08/18 11:42 0.5 MG Hydromorphone HCl (Dilaudid Inj) 1 mg Q4H PRN IV 06/04/18 12:30 06/16/18 20:14 06/08/18 15:42 1 MG Scopolamine (Transderm-Scop Patch) 1.5 mg Q72H TD 06/05/18 10:15 07/05/18 10:14 06/08/18 09:54 1.5 MG Miscellaneous Information (Check Scopolamine Patch Placement) 1 ea QS N/A 06/05/18 16:00 07/05/18 15:59 06/08/18 15:42 1 EA Miscellaneous (Remove Transderm-Scop Patch) 1 ea Q72H N/A 06/08/18 10:15 07/08/18 10:14 06/08/18 10:15 1 EA Oxycodone HCl (Roxicodone Soln) 5 mg Q2R PRN PO 06/05/18 09:45 06/19/18 09:44 Heparin Sodium (Porcine) (Heparin 100 Unit/ml 5ml Flush) 5 ml PRN PRN IV 06/05/18 11:00 07/05/18 10:59 06/08/18 09:54 5 ML Lorazepam 0.5 mg/ Syringe 1 ml @ 1 mls/min Q4H PRN IV 06/06/18 12:15 07/06/18 12:14 06/08/18 00:10 1 MLS/MIN Objective Physical Exam Notes: GENERAL: Somnolent, in no distress. adiaphoretic HENT: Normocephalic, atraumatic. No grimace present. Opens eyes and closes them. RESPIRATORY: Normal work of breathing. On room air NEURO: paraplegia SKIN: No rash or jaundice noted. Assessment and Plan Mrs. Jasso is a 73F with metabolic encephalopathy and tachycardia found to have an elevated white count of 29 on admission, chest xray with cavitary pneumonia, urinary tract infection and sacral ulcer, chronic osteomyelitis. PMHx significant for end stage multiple sclerosis x 20years, chronic migraines, functional paraplegia, urinary retention with chronic ihll catheterization and also colostomy bag for incontinence complicated by sacral ulcer, osteomyelitis. Due to poor prognosis decision made with pt and family to make comfort measures 06/04. See palliative note. Will avoid morphine since this makes her angry and confused. Pt appears comfortable. Unsure if need for inpatient hospice or consider hospice at [facility]. Following Code: DNR Dispo: 4E. Comfort. Resident Physician Supervision Note: I interviewed and examined the patient. Discussed with Dr. Cruz and agree with findings and plan as documented in the note. Any exceptions or clarifications are listed here: None Documented By: Artis Schilling no HPI or ROS. family notes occassionaly agitated but meds helping. nonverbal for several days now vitals noted nad breathing unlabored fatigued end stage MS w large (presumably aspiration) pneumonia w cavitary lesion and sepsis present on admission -now comfort care. continue current course. appreciate palliative input otherwise as above Continued [facility] stay due to: multiple IV medications needed Resident Tracking Resident Involvement: Resident Care Provided Care Provided: Adult Hospital Medicine
[2018-06-09] MEDS: CHECK SCOPOLAMINE PATCH PLACEMENT SCH ×2 (07:43→15:37)
[2018-06-09] MEDS: HYDROmorphone INJ 2 MG/ML SYR/VIAL IV PRN ×3 (07:48→20:02)
[2018-06-09] MEDS: LORAZEPAM INJ 0.5 MG in SYRINGE 0.75 ML IV PRN ×2 (11:19→18:21)
--- NOTE | 2018-06-09 17:03 | Progress Note ---
Subjective Date of Service: Jun 09, 2018. Subjective Pt evaluation today including: conversation w/ patient, conversation w/ family , physical exam, chart review, review of inpatient medication list a little more interactive today - in that she nods, and makes eye contact. seems to have pain controlled. family present Problem List Medical Problems: (1) Abnormal LFTs (liver function tests) Status: Acute (2) Altered mental status Status: Acute (3) Altered mental status Status: Acute (4) Cavitary pneumonia Status: Acute (5) Cellulitis Status: Acute (6) Cystitis Status: Acute (7) Dehydration Status: Acute (8) Dehydration Status: Acute (9) Diarrhea Status: Acute (10) Exacerbation of multiple sclerosis Status: Acute (11) Fall at home Status: Acute (12) Femur fracture Status: Acute (13) Fever Status: Acute (14) Fracture of right hip Status: Acute (15) Headache Status: Acute (16) Hypokalemia Status: Acute (17) Intractable pain Status: Acute (18) Intractable vomiting Status: Acute (19) Migraine Status: Acute (20) Migraine Status: Acute (21) Migraine Status: Acute (22) Migraine Status: Acute (23) Migraine Status: Acute (24) Migraine Status: Acute (25) Migraine Status: Acute (26) Migraine Status: Acute (27) Migraine Status: Acute (28) Migraine Status: Acute (29) Migraine headache Status: Acute (30) Pelvis fracture, right Status: Acute (31) Pneumonia Status: Acute (32) Pressure ulcer of right buttock Status: Acute (33) Proctocolitis Status: Acute (34) Sacral ulcer Status: Acute (35) Status post closed fracture of right hip Status: Acute (36) Tachycardia Status: Acute (37) Tachycardia Status: Acute (38) Tachycardia Status: Acute (39) UTI (urinary tract infection) Status: Acute (40) Weakness Status: Acute (41) Weakness Status: Acute (42) Weakness Status: Acute Review of Systems ROS otherwise unobtainable except for as above Objective Vital Signs Date Time Temp Pulse Resp B/P (MAP) Pulse Ox O2 Delivery O2 Flow Rate FiO2 06/09/18 07:45 Room Air 06/09/18 00:10 Room Air Physical Exam General Appearance: no apparent distress Neck: trachea midline Respiratory/Chest: no respiratory distress, no accessory muscle use Neurologic/Psychiatric: pick up II-XII nml as tested Skin: normal color, warm/dry Assessment and Plan Mrs. Jasso is a 73F with metabolic encephalopathy and tachycardia found to have an elevated white count of 29 on admission, chest xray with cavitary pneumonia, urinary tract infection and sacral ulcer, chronic osteomyelitis. PMHx significant for end stage multiple sclerosis x 20years, chronic migraines, functional paraplegia, urinary retention with chronic hill catheterization and also colostomy bag for incontinence complicated by sacral ulcer, osteomyelitis. Due to poor prognosis decision made with pt and family to make comfort measures 06/04. overall comfortable - has required ongoing IV dosing for pain and restlessness. Code: DNR Dispo: 4E. Comfort.
[2018-06-10] MEDS: HYDROmorphone INJ 2 MG/ML SYR/VIAL IV PRN ×4 (00:02→11:27)
[2018-06-10] MEDS: CHECK SCOPOLAMINE PATCH PLACEMENT SCH ×3 (07:40→15:08)
[2018-06-10 07:45] VITALS: O2SAT 95
[2018-06-10] MEDS: LORAZEPAM INJ 0.5 MG in SYRINGE 0.75 ML IV PRN (08:41)
[2018-06-10] MEDS: LORAZEPAM 2 MG/ML 1 ML VIAL IV PRN (13:43)
--- NOTE | 2018-06-10 16:55 | Progress Note ---
Subjective Date of Service: Jun 10, 2018. Subjective Pt evaluation today including: conversation w/ patient, physical exam, chart review, lab review, review of inpatient medication list still needing IV meds from time to time for pain or agitation opening eyes and smiling some, but nonverbal for several days Problem List Medical Problems: (1) Abnormal LFTs (liver function tests) Status: Acute (2) Altered mental status Status: Acute (3) Altered mental status Status: Acute (4) Cavitary pneumonia Status: Acute (5) Cellulitis Status: Acute (6) Cystitis Status: Acute (7) Dehydration Status: Acute (8) Dehydration Status: Acute (9) Diarrhea Status: Acute (10) Exacerbation of multiple sclerosis Status: Acute (11) Fall at home Status: Acute (12) Femur fracture Status: Acute (13) Fever Status: Acute (14) Fracture of right hip Status: Acute (15) Headache Status: Acute (16) Hypokalemia Status: Acute (17) Intractable pain Status: Acute (18) Intractable vomiting Status: Acute (19) Migraine Status: Acute (20) Migraine Status: Acute (21) Migraine Status: Acute (22) Migraine Status: Acute (23) Migraine Status: Acute (24) Migraine Status: Acute (25) Migraine Status: Acute (26) Migraine Status: Acute (27) Migraine Status: Acute (28) Migraine Status: Acute (29) Migraine headache Status: Acute (30) Pelvis fracture, right Status: Acute (31) Pneumonia Status: Acute (32) Pressure ulcer of right buttock Status: Acute (33) Proctocolitis Status: Acute (34) Sacral ulcer Status: Acute (35) Status post closed fracture of right hip Status: Acute (36) Tachycardia Status: Acute (37) Tachycardia Status: Acute (38) Tachycardia Status: Acute (39) UTI (urinary tract infection) Status: Acute (40) Weakness Status: Acute (41) Weakness Status: Acute (42) Weakness Status: Acute Review of Systems ROS otherwise unobtainable except for as above Objective Vital Signs Date Time Temp Pulse Resp B/P (MAP) Pulse Ox O2 Delivery O2 Flow Rate FiO2 06/10/18 07:45 95 Room Air 06/10/18 00:05 Room Air Physical Exam General Appearance: no apparent distress Neck: trachea midline Respiratory/Chest: no respiratory distress, no accessory muscle use Skin: + pallor (mild) Assessment and Plan Mrs. Jasso is a 73F with metabolic encephalopathy and tachycardia found to have an elevated white count of 29 on admission, chest xray with cavitary pneumonia, urinary tract infection and sacral ulcer, chronic osteomyelitis. PMHx significant for end stage multiple sclerosis x 20years, chronic migraines, functional paraplegia, urinary retention with chronic hill catheterization and also colostomy bag for incontinence complicated by sacral ulcer, osteomyelitis. Due to poor prognosis decision made with pt and family to make comfort measures 06/04. overall comfortable - still requiring ongoing IV dosing for pain and restlessness. Code: DNR Dispo: 4E. Comfort.
[2018-06-11] MEDS: CHECK SCOPOLAMINE PATCH PLACEMENT SCH ×3 (00:12→16:16)
[2018-06-11] MEDS: HYDROmorphone INJ 2 MG/ML SYR/VIAL IV PRN ×2 (06:27→12:48)
[2018-06-11] MEDS: LORAZEPAM INJ 0.5 MG in SYRINGE 0.75 ML IV PRN (10:15)
[2018-06-11] MEDS: SCOPOLAMINE 1.5 MG TDSY TD SCH (13:21)
[2018-06-11] MEDS: LORAZEPAM 2 MG/ML 1 ML VIAL IV PRN (13:38)
[2018-06-11] MEDS ORDERED: LORAZEPAM INJ 0.5 MG in SYRINGE 0.75 ML IV PRN (13:45)
[2018-06-11] MEDS ORDERED: HYDROmorphone INJ 1 MG/ML SYR IV PRN (13:45)
[2018-06-11] MEDS ORDERED: LORAZEPAM 2 MG/ML 1 ML VIAL IV PRN (14:00)
--- NOTE | 2018-06-11 14:14 | Family Medicine Progress Note ---
Progress Note Date of Service Jun 11, 2018. Subjective Pt evaluation today including: conversation w/ family, physical exam, review of inpatient medication list Pain: Patient indicated she was comfortable during visit this morning PO Intake: No oral intake x 7 days Voiding: hill catheter in place Patient has been non-verbal for several days. Family report she has been very comfortable. Diminishing urine output noted. Additional Comments: Patient unable to provide ROS. Comfort care. Non-verbal. Denies pain or discomfort Medications Current Inpatient Medications Medications (Trade) Dose Ordered Sig/Melvin Route Start Time Stop Time Status Last Admin Dose Admin Ondansetron HCl (Zofran Inj) 4 mg Q6H PRN IV 05/30/18 17:15 06/29/18 17:14 06/04/18 11:38 4 MG Scopolamine (Transderm-Scop Patch) 1.5 mg Q72H TD 06/05/18 10:15 07/05/18 10:14 06/11/18 13:21 1.5 MG Miscellaneous Information (Check Scopolamine Patch Placement) 1 ea QS N/A 06/05/18 16:00 07/05/18 15:59 06/11/18 07:46 1 EA Miscellaneous (Remove Transderm-Scop Patch) 1 ea Q72H N/A 06/08/18 10:15 07/08/18 10:14 06/11/18 13:22 1 EA Oxycodone HCl (Roxicodone Soln) 5 mg Q2R PRN PO 06/05/18 09:45 06/19/18 09:44 Heparin Sodium (Porcine) (Heparin 100 Unit/ml 5ml Flush) 5 ml PRN PRN IV 06/05/18 11:00 07/05/18 10:59 06/11/18 13:38 5 ML Lorazepam 0.5 mg/ Syringe 1 ml @ 1 mls/min Q2H PRN IV 06/11/18 13:45 07/06/18 12:14 Hydromorphone HCl (Dilaudid Inj) 1 mg Q2H PRN IV 06/11/18 13:45 06/16/18 20:14 Lorazepam (Ativan Inj) 0.5 mg Q2H PRN IV 06/11/18 14:00 07/11/18 13:59 Objective Vital Signs Date Time Temp Pulse Resp B/P (MAP) Pulse Ox O2 Delivery O2 Flow Rate FiO2 06/11/18 07:45 Room Air 06/10/18 20:00 Room Air Physical Exam General Appearance: no apparent distress, + cachetic, + thin Eyes: PERRL ENT: hearing grossly normal Neck: trachea midline Respiratory/Chest: no respiratory distress, no accessory muscle use, + decreased breath sounds Cardiovascular: regular rate, rhythm, no murmur Abdomen: non tender Extremities: no pedal edema Neurologic/Psychiatric: + aphasia (non-verbal ) Skin: + mottled, + pallor, + pertinent finding (Cool to touch) Laboratory Results Last Resulted 06/04/18 06:03 Red Blood Count 3.64, Mean Corpuscular Volume 91.8, Mean Corpuscular Hemoglobin 29.7, Mean Corpuscular Hemoglobin Concent 32.3, Mean Platelet Volume 10.1, Neutrophils (%) (Auto) 95.9, Lymphocytes (%) (Auto) 2.9, Monocytes (%) (Auto) 0.4, Eosinophils (%) (Auto) 0.0, Basophils (%) (Auto) 0.1, Neutrophils # (Auto) 13.09, Lymphocytes # (Auto) 0.40, Monocytes # (Auto) 0.06, Eosinophils # (Auto) 0.00, Basophils # (Auto) 0.01 Last Resulted 06/04/18 06:03 Assessment and Plan Mrs. Jasso is a 73F with metabolic encephalopathy and tachycardia found to have an elevated white count of 29 on admission, chest xray with cavitary pneumonia, urinary tract infection and sacral ulcer, chronic osteomyelitis. PMHx significant for end stage multiple sclerosis x 20years, chronic migraines, functional paraplegia, urinary retention with chronic hill catheterization and colostomy bag for incontinence, complicated by sacral ulcer, osteomyelitis. Due to poor prognosis decision made with pt and family to make comfort measures 06/04. Patient overall comfortable: increased frequency of ativan and dilauded for pain and discomfort. Appreciate palliative care involvement. Family on board and frequently with patient--report no needs at this time. Code: DNR Dispo: heme/onc. Comfort. Resident Tracking Resident Involvement: Resident Care Provided Care Provided: Adult Hospital Medicine Reviewed: Pt Seen/Exam by Me History comfortable in bed. nursing reports patient getting restless easily within 4 hrs of getting medications General Appearance: no apparent distress Respiratory: no respiratory distress Neurologic/Psychiatric: other (somnolent) Assessment/Plan Resident Physician Supervision Note: I independently interviewed and examined the patient and verified the alvarado history and physical, reviewed labs and image studies, discussed the case with the resident Dr. Pradhan and agree with the findings and care plan.
--- NOTE | 2018-06-11 15:31 | Palliative Care Progress Note ---
Palliative Care Progress Note Date of Service Jun 11, 2018. Subjective Pt evaluation today including: conversation w/ patient, conversation w/ family , physical exam Pain: no s/s pain or discomfort Patient remains on comfort measures. She was still able to open eyes and nod head for yes and no questions. Denied pain or discomfort. No oral intake since last Monday. Oliguric. Review of Systems unable to obtain full ROS due to patient condition Objective Vital Signs Date Time Temp Pulse Resp B/P (MAP) Pulse Ox O2 Delivery O2 Flow Rate FiO2 06/11/18 07:45 Room Air 06/10/18 20:00 Room Air Physical Exam General Appearance: no apparent distress, + cachetic, + thin ENT: hearing grossly normal Neck: no JVD Respiratory/Chest: lungs clear, no respiratory distress, no accessory muscle use, + decreased breath sounds Cardiovascular: regular rate, rhythm, no edema, + normal peripheral pulses Abdomen: normal bowel sounds, soft Neurologic/Psychiatric: + pertinent finding (lethargic) Skin: + mottled (bilateral knees and elbows) Assessment and Plan Problem list: Altered mental status Severe MS Cavitary pneumonia Goals of care Palliative care recs -Comfort measures only. -Receiving Dilaudid IV for pain. Only had 2 doses in last 24 hours. Consider switching to Roxanol 5-10mg PO/SL Q2h PRN pain or SOB if any chance of patient being discharged out of hospital. -Spoke with patient's , Stevo, at bedside. He stated, "That's not happening ," when we talked about the possibility of going back to the [facility]. He stated patient had a roommate which was very disruptive. I did ask the director of casework department to find out if has any private beds available IF hospitalists do decide to transfer her back. However, last week Stevo went to [facility] and cleared patient's belongings and discharged her from their service. -At this current time, I do not see qualifying factors for [facility] hospice, but this could certainly change in the near future. -I will continue to follow and provide support as needed. Total time spent 25 minutes with >50% of time spent at bedside with patient and family counseling and discussing plan of care. Palliative Performance Scale: 10 %
--- NOTE | 2018-06-11 20:56 | Death Pronouncement Note ---
Pronouncement Note Date & Time of Jun 11, 2018. 2020 Pronouncement At time of pronouncement the patients pupils were fixed and dilated, there was no spontaneous respiratory effort, no palpable pulse, no audible heart tones, and no response to pain or voice.
--- NOTE | 2018-06-11 20:59 | Death Summary ---
Summary of Admission Date May 30, 2018 at 17:21 Date & Time of Jun 11, 2018. 2020 Cause of aspiration pneumonia related to severe/end stage MS Hospital Course admitted with aspiration pneumonia - initially treated medically aggressively, but pt started to express desire for palliative mindset to her care. over a few days, she became quite clear that she wanted comfort measures only. family was in agreement that this was consistent with her longstanding wishes. further , since the aspiration pneumonia appeared to be a direct consequence of her MS, which had progressed to end stage, moving to comfort care appeared entirely reasonable in her situation. she passed peacefully on 06/11/18 at 2020 empathy and support provided to family
== END 2018-06-11 20:20 | disposition expired | DRG 871 ==
LOC: EDBD 11:12 → C.EDB 11:14 → C.2T 17:21 → UNDOADMIN 17:21 → EDBEDREQ 17:27 → ENRESERV 17:40 → C.4E 06-04 10:55 → ENRESERV 06-04 12:30
PROVIDERS: ADMIT Family Medicine; ATTEND Family Medicine
DX: A41.9 Sepsis, unspecified organism (principal); J18.9 Pneumonia, unspecified organism; N17.9 Acute kidney failure, unspecified; J85.0 Gangrene and necrosis of lung; R65.20 Severe sepsis without septic shock; M86.68 Other chronic osteomyelitis, other site; N39.0 Urinary tract infection, site not specified; G93.41 Metabolic encephalopathy; I10 Essential (primary) hypertension; Z51.5 Encounter for palliative care; K27.7 Chronic peptic ulcer, site unspecified, without hemorrhage or perforation; G35 Multiple sclerosis; Z80.3 Family history of malignant neoplasm of breast; Z82.49 Family history of ischemic heart disease and other diseases of the circulatory system; G43.909 Migraine, unspecified, not intractable, without status migrainosus; F44.4 Conversion disorder with motor symptom or deficit; R33.9 Retention of urine, unspecified; L89.159 Pressure ulcer of sacral region, unspecified stage; B96.5 Pseudomonas (aeruginosa) (mallei) (pseudomallei) as the cause of diseases classified elsewhere; Z93.3 Colostomy status; J98.4 Other disorders of lung; Z87.891 Personal history of nicotine dependence; Z87.440 Personal history of urinary (tract) infections; B95.62 Methicillin resistant Staphylococcus aureus infection as the cause of diseases classified elsewhere; Z66 Do not resuscitate; E86.0 Dehydration